=== PATIENT | male | born 1935 | race Caucasian/White ===

== ENCOUNTER 2018-10-09 15:29 | Inpatient (IN) ==
[2018-10-09] MEDS ORDERED: ACETAMINOPHEN 1,000 MG/100 ML VIAL IV STA (15:49)
[2018-10-09] MEDS ORDERED: SODIUM CHLORIDE 0.9% 1000ML 500 ML IV ONE ×2 (15:49→17:30)
[2018-10-09] MEDS ORDERED: ONDANSETRON INJ 2 MG/ML 2 ML VIAL IV STA (15:49)
[2018-10-09 16:22] LABS: Albumin Level 3.2 gm/dl (3.4-5.0); BUN Creatinine Ratio 16.1 (10-20); Calcium 8.6 mg/dl (8.5-10.1); Creatinine Clr Calc Pharmacy 28.9 ml/min; Est GFR (African American) 38.2; Est GFR (Non-African American) 32.9; Potassium 4.1 mmol/L (3.5-5.1)
--- NOTE | 2018-10-09 16:24 | Emergency Department Note ---
Entered by Luis Charles acting as a scribe for Luis Meza MD History of Present Illness General Chief complaint: Catheter Replacement Stated complaint: CATHETER LEAKING, CONSTIPATION-S/P BLADDER SURGERY Time Seen by Provider: 10/09/18 15:36 Source: patient History of Present Illness Provider complaint: Catheter problems Onset (ago): unknown Location: genitals Radiation: abdomen Relieved By: + none Associated symptoms: + cough and + other (Constipation, abd pain, chills); no nausea/vomiting The patient is an 83 year old male s/p bladder surgery who presents to the Emergency Room with complaints of catheter problems. The patient states that the catheter is currently leaking but the bag is filling up. He notes that he had same-day surgery for bladder cancer 2 days ago at [facility] ([place]) and left with the catheter. The patient adds that he is currently taking antibiotics for infection prevention since the surgery. The patient also notes that he has not moved is bowels for 4 days. He adds that he has been taking suppositories and used an enema with no relief. He adds that his abdomen feels bloated stating it "feels like a rock". The patient also reports that he has some abdominal pain that radiates across his abdomen. The patient also complains of chills and coughing. The patient denies vomiting Home Medications Home Medications Medication Instructions Recorded Confirmed Type amlodipine 5 mg PO HS 10/09/18 10/09/18 History aspirin [Aspirin Low Dose] 81 mg PO QA 10/09/18 10/09/18 History atenolol 25 mg PO HS 10/09/18 10/09/18 History atenolol 50 mg PO QAM 10/09/18 10/09/18 History calcium carbonate 500 mg PO DAILY 10/09/18 10/09/18 History cholecalciferol (vitamin D3) 1,000 unit PO DAILY 10/09/18 10/09/18 History [Vitamin D3] coenzyme Q10 50 mg PO DAILY 10/09/18 10/09/18 History finasteride 5 mg PO PM 10/09/18 10/09/18 History fluticasone furoate [Flonase 1 spray INTRANASAL DIRECTED PRN 10/09/18 0 10/09/18 History Sensimist] multivitamin 1 tab PO QAM 10/09/18 10/09/18 History nitroglycerin [Nitrostat] 0.3 mg SUBLINGUAL DIRECTED 10/09/18 10/09/18 History omega [id number]-fish oil [[place]-3] 1 cap PO PM 10/09/18 10/09/18 History omeprazole 20 mg PO DIRECTED PRN 10/09/18 10/09/18 History polyethylene glycol 3350 17 g PO DAILY PRN 10/09/18 10/09/18 History pravastatin 20 mg PO HS 10/09/18 10/09/18 History pyridoxine (vitamin B6) 100 mg PO QAM 10/09/18 10/09/18 History spironolactone 25 mg PO QAM 10/09/18 10/09/18 History vitamin X11-[id number] acid 1 tab PO QAM 10/09/18 10/09/18 History Allergies Allergy/AdvReac Type Severity Reaction Status Date / Time atorvastatin Allergy Unknown "TIGHTENS Verified 10/09/18 17:46 UP MY LIVER" simvastatin Allergy Unknown "TIGHTEN Verified 10/09/18 17:46 UP MY LIVER" tamsulosin Allergy Unknown UNKNOWN Verified 10/09/18 17:46 ciprofloxacin [From Cipro] AdvReac Severe abdominal/ Unverified 10/09/18 17:46 stomach pain lisinopril AdvReac Mild RASH Unverified 10/09/18 17:46 Past Med/Surg History Medical History Bladder cancer Social History Preferred Language: Taiwanese In Store Representative Required: No Beliefs That Will Affect Care: None Current Living Situation: Spouse Feels Safe at Home: Yes Safety Concerns: Feels Safe At This Time Smoking Status: Never smoker Hx Alcohol Use: No Hx Substance Use: No Review of Systems See HPI for pertinent positives & negatives. and A total of 10 systems reviewed and were otherwise negative Physical Exam Vital Signs Vital Signs - 24 hr 10/09/18 15:34 10/09/18 16:39 10/09/18 18:04 Temperature 37.0 C Temperature Source Oral Sepsis Recent Fever Within 48 Hours No Sepsis New/Unexplained Change in Mental Status No Sepsis Action Taken by Nursing No Action Required Pulse Rate 94 H 64 Pulse Rate [Apical] 67 Pulse Rate from SpO2 Sensor Respiratory Rate 20 20 12 Respiratory Effort / Characteristics Non-Labored Spontaneous Respiratory Depth Normal Blood Pressure 130/63 133/65 Blood Pressure [Left Arm] 132/61 Blood Pressure Mean 85 87 Blood Pressure Mean [Left Arm] 84 Blood Pressure Position Sitting Pulse Oximetry 92 93 97 Pulse Oximetry [Left Index Finger] Oxygen Delivery Method Room Air Room Air Room Air Oxygen Delivery Method [Left Index Finger] 10/09/18 18:30 10/09/18 19:01 10/09/18 19:32 Temperature Temperature Source Sepsis Recent Fever Within 48 Hours Sepsis New/Unexplained Change in Mental Status Sepsis Action Taken by Nursing Pulse Rate 69 65 64 Pulse Rate [Apical] Pulse Rate from SpO2 Sensor 69 64 65 Respiratory Rate 16 19 23 Respiratory Effort / Characteristics Respiratory Depth Blood Pressure 141/70 H 136/89 141/61 H Blood Pressure [Left Arm] Blood Pressure Mean 93 104 87 Blood Pressure Mean [Left Arm] Blood Pressure Position Pulse Oximetry 96 95 95 Pulse Oximetry [Left Index Finger] Oxygen Delivery Method Room Air Room Air Room Air Oxygen Delivery Method [Left Index Finger] 10/09/18 20:00 10/09/18 20:08 Temperature 36.8 C Temperature Source Oral Sepsis Recent Fever Within 48 Hours Sepsis New/Unexplained Change in Mental Status Sepsis Action Taken by Nursing Pulse Rate Pulse Rate [Apical] 62 Pulse Rate from SpO2 Sensor Respiratory Rate 18 Respiratory Effort / Characteristics Non-Labored Spontaneous Respiratory Depth Normal Blood Pressure Blood Pressure [Left Arm] 158/62 H Blood Pressure Mean Blood Pressure Mean [Left Arm] 94 Blood Pressure Position Pulse Oximetry 95 Pulse Oximetry [Left Index Finger] 95 Oxygen Delivery Method Room Air Oxygen Delivery Method [Left Index Finger] Room Air GENERAL: Patient is in no acute distress. HEENT: No acute trauma, normocephalic atraumatic, mucous membranes moist, no nasal congestion, no scleral icterus. NECK: No stridor, no adenopathy, no meningismus, trachea is midline. LUNGS: Clear to auscultation bilaterally, no wheeze, no rhonchi, breath sounds equal. HEART: Without murmurs gallops or rubs, regular rate and rhythm. ABDOMEN: Distension noted, soft abdomen, tympany with percussion, no obvious hernia, no focal tenderness. GROIN: Fairbanks catheter in place draining dark yellow urine, underwear are soaked from leakage. RECTAL: No stool in rectal vault. EXTREMITIES: No cyanosis or edema, full range of motion of all the joints without pain or difficulty, no signs for acute trauma. NEUROLOGIC: Oriented x 3, no acute motor or sensory deficits, no focal weakness. SKIN: No rash, no jaundice, no diaphoresis. Course 1542: The patient was evaluated in room C02B. A complete history and physical exam was performed. 1753: I reviewed the patient's case with Dr. [facility]. He states that there is no reason for any emergent procedure today. The patient can stay at our hospital. 1804: I reviewed the patient's case with Dr. Sandoval Hospitalist. He will evaluate the patient for further management. Administered Medications Acetaminophen (Tylenol) 650 mg PO Q4H PRN PRN Reason: Pain or Fever Stop: 11/08/18 20:07 Last Admin: 10/09/18 22:19 Dose: 650 mg Documented by: [id number] Amlodipine Besylate (Norvasc) 5 mg PO HS ALEK Stop: 11/08/18 20:59 Last Admin: 10/09/18 21:10 Dose: Not Given Documented by: [id number] Atenolol (Tenormin) 25 mg PO HS ALEK Stop: 11/08/18 20:59 Last Admin: 10/09/18 20:58 Dose: 25 mg Documented by: [id number] Bisacodyl (Dulcolax) 10 mg MO [id number] ALEK Stop: 11/08/18 21:35 Last Admin: 10/09/18 22:19 Dose: 10 mg Documented by: [id number] Finasteride (Proscar) 5 mg PO PM ALEK Stop: 11/08/18 20:59 Last Admin: 10/09/18 20:58 Dose: 5 mg Documented by: [id number] Fish Oil ([place]-3 (Purified Fish Oil)) 1 gm PO PM ALEK Stop: 11/08/18 20:59 Last Admin: 10/09/18 20:59 Dose: Not Given Documented by: [id number] Heparin Sodium (Porcine) (Heparin Sodium (Porcine)) 5,000 units SQ Q8 ALEK Stop: 11/08/18 21:59 Last Admin: 10/09/18 21:06 Dose: 5,000 units Documented by: [id number] Cosigned by: [id number] Sodium Chloride (Nss 1000ml) 1,000 mls @ 100 mls/hr IV .Q10H ALEK Stop: 11/08/18 20:14 Last Admin: 10/09/18 20:56 Dose: 100 mls/hr Documented by: [id number] Lactulose (Chronulac) 30 gm PO [id number] ALEK Stop: 11/08/18 21:34 Last Admin: 10/09/18 22:19 Dose: 30 gm Documented by: [id number] Pravastatin Sodium (Pravachol) 20 mg PO HS ALEK Stop: 11/08/18 20:59 Last Admin: 10/09/18 20:58 Dose: 20 mg Documented by: [id number] Discontinued Medications Sodium Chloride (Nss 1000ml) 500 mls @ 999 mls/hr IV .Q31M ONE Stop: 10/09/18 16:19 Last Infusion: 10/09/18 16:35 Dose: 0 mls/hr Documented by: [id number] Admin: 10/09/18 16:04 Dose: 999 mls/hr Documented by: [id number] Acetaminophen (Ofirmev) 1,000 mg in 100 mls @ 400 mls/hr IV NOW STA Stop: 10/09/18 16:03 Last Infusion: 10/09/18 16:19 Dose: 0 mls/hr Documented by: [id number] Admin: 10/09/18 16:04 Dose: 400 mls/hr Documented by: [id number] Cefepime HCl (Maxipime) 2,000 mg in 20 mls @ 5 mls/min IV NOW STA; Protocol Stop: 10/09/18 17:17 Last Admin: 10/09/18 18:26 Dose: 5 mls/min Documented by: [id number] Sodium Chloride (Nss 1000ml) 500 mls @ 999 mls/hr IV .Q31M ONE Stop: 10/09/18 18:00 Last Infusion: 10/09/18 18:39 Dose: 0 mls/hr Documented by: [id number] Admin: 10/09/18 18:08 Dose: 999 mls/hr Documented by: [id number] Ondansetron HCl (Zofran) 4 mg IV NOW STA Stop: 10/09/18 15:50 Last Admin: 10/09/18 16:04 Dose: 4 mg Documented by: [id number] Medical Decision Making Differential Diagnosis Differential Diagnosis: urinary obstruction, mal position Fairbanks catheter, UTI, constipation, bowel obstruction, renal failure, dehydration, anemia Medical Records Attestation: I reviewed the patient's medical records. Home Medications Current Medication List: was personally reviewed by me Laboratory Data Attestation: I reviewed the patient's lab results. Result diagrams: 10/09/18 15:59 10/09/18 15:59 Lab Results 10/09/18 10/09/18 10/09/18 Range/Units 15:59 15:59 16:02 WBC 24.62 H (4.8-10.8) K/uL RBC 4.44 L (4.7-6.1) M/uL Hgb 14.0 (14.0-18.0) g/dL Hct 39.8 L (42-52) % MCV 89.6 (80-100) fL MCH 31.5 (25-34) pg MCHC 35.2 (32-36) g/dL RDW Std Deviation 47.6 H (36.4-46.3) fL RDW Coeff of Kriss 14.5 (11.5-14.5) % Plt Count 79 L (130-400) K/uL MPV 11.7 H (7.4-10.4) fL Neutrophils % (Manual) 60.8 % Lymphocytes % (Manual) 9.6 % Monocytes % (Manual) 29.6 % Neutrophils # (Manual) 14.97 H (1.4-6.5) K/uL Total Absolute Neuts 14.97 H (1.4-6.5) K/uL Lymphocytes # (Manual) 2.36 (1.2-3.4) K/uL Total Abs Lymphocytes 2.36 (1.2-3.4) K/uL Monocytes # (Manual) 7.29 H (0.11-0.59) K/uL Platelet Estimate Decreased L (Normal) RBC Morphology Unremarkable PT 12.4 H (9.0-12.0) Seconds INR 1.2 H (0.9-1.1) Sodium 135 L (136-145) mmol/L Potassium 4.1 (3.5-5.1) mmol/L Chloride 101 (98-107) mmol/L Carbon Dioxide 25 (21-32) mmol/L Anion Gap 8.0 (3-11) BUN 30 H (7-18) mg/dl Creatinine 1.84 H (0.6-1.4) mg/dl Est Cr Clr Drug Dosing 28.9 ml/min Est GFR ( Amer) 38.2 Est GFR (Non-Af Amer) 32.9 BUN/Creatinine Ratio 16.1 (10-20) Glucose 129 H (70-99) mg/dl Lactate (0.4-2.0) mmol/L Calcium 8.6 (8.5-10.1) mg/dl Total Bilirubin 2.4 H (0.2-1) mg/dl AST 11 L (15-37) U/L ALT 17 (12-78) U/L Alkaline Phosphatase 52 (45-117) U/L Total Protein 6.1 L (6.4-8.2) gm/dl Albumin 3.2 L (3.4-5.0) gm/dl Globulin 2.9 (2.5-4.0) gm/dl Albumin/Globulin Ratio 1.1 (0.9-2) Urine Color Urine Appearance (Clear) Urine pH (4.5-7.5) Ur Specific [place] (1.000-1.030) Urine Protein (Negative) Urine Glucose (UA) (Negative) Urine Ketones (Negative) Urine Blood (Negative) Urine Nitrite (Negative) Urine Bilirubin (Negative) Urine Urobilinogen (Negative) Ur Leukocyte Esterase (Negative) Urine WBC (Auto) (0-5) /hpf Urine RBC (Auto) (0-4) /hpf U Hyaline Cast (Auto) (0-5) /lpf U Epithel Cells (Auto) (0-5) /lpf Urine Bacteria (Auto) (Negative) Ur Renal Epithelial Cell Amorphous Sediment (None Prsent) Urine Yeast 10/09/18 10/09/18 Range/Units 17:44 17:48 WBC (4.8-10.8) K/uL RBC (4.7-6.1) M/uL Hgb (14.0-18.0) g/dL Hct (42-52) % MCV (80-100) fL MCH (25-34) pg MCHC (32-36) g/dL RDW Std Deviation (36.4-46.3) fL RDW Coeff of Kriss (11.5-14.5) % Plt Count (130-400) K/uL MPV (7.4-10.4) fL Neutrophils % (Manual) % Lymphocytes % (Manual) % Monocytes % (Manual) % Neutrophils # (Manual) (1.4-6.5) K/uL Total Absolute Neuts (1.4-6.5) K/uL Lymphocytes # (Manual) (1.2-3.4) K/uL Total Abs Lymphocytes (1.2-3.4) K/uL Monocytes # (Manual) (0.11-0.59) K/uL Platelet Estimate (Normal) RBC Morphology PT (9.0-12.0) Seconds INR (0.9-1.1) Sodium (136-145) mmol/L Potassium (3.5-5.1) mmol/L Chloride (98-107) mmol/L Carbon Dioxide (21-32) mmol/L Anion Gap (3-11) BUN (7-18) mg/dl Creatinine (0.6-1.4) mg/dl Est Cr Clr Drug Dosing ml/min Est GFR ( Amer) Est GFR (Non-Af Amer) BUN/Creatinine Ratio (10-20) Glucose (70-99) mg/dl Lactate 1.0 (0.4-2.0) mmol/L Calcium (8.5-10.1) mg/dl Total Bilirubin (0.2-1) mg/dl AST (15-37) U/L ALT (12-78) U/L Alkaline Phosphatase (45-117) U/L Total Protein (6.4-8.2) gm/dl Albumin (3.4-5.0) gm/dl Globulin (2.5-4.0) gm/dl Albumin/Globulin Ratio (0.9-2) Urine Color Dark Yellow Urine Appearance Turbid A (Clear) Urine pH 5.0 (4.5-7.5) Ur Specific [place] 1.029 (1.000-1.030) Urine Protein 3+ H (Negative) Urine Glucose (UA) Negative (Negative) Urine Ketones Trace H (Negative) Urine Blood 3+ H (Negative) Urine Nitrite Negative (Negative) Urine Bilirubin Negative (Negative) Urine Urobilinogen Negative (Negative) Ur Leukocyte Esterase 1+ H (Negative) Urine WBC (Auto) >30 H (0-5) /hpf Urine RBC (Auto) >30 H (0-4) /hpf U Hyaline Cast (Auto) 0 (0-5) /lpf U Epithel Cells (Auto) >30 H (0-5) /lpf Urine Bacteria (Auto) Negative (Negative) Ur Renal Epithelial Cell Not Reportable Amorphous Sediment Present A (None Prsent) Urine Yeast Not Reportable Imaging Data Radiologist's Impression: Radiology results as stated below per my review and the radiologist's interpretation: CT SCAN OF THE ABDOMEN AND PELVIS WITHOUT IV CONTRAST CLINICAL HISTORY: Generalized abdominal pain. COMPARISON STUDY: Abdominal radiographs dated 12/19/2009. PET/CT dated 02/13/2009. TECHNIQUE: CT scan of the abdomen and pelvis is performed from the lung bases to the proximal femora. Images are reviewed in the axial, sagittal, and coronal planes. IV contrast was not administered for this examination as per the referring clinician. Note that the examination was performed in significantly suboptimal fashion without oral and IV contrast. The examination is also mildly degraded by motion artifact. A dose lowering technique was utilized adhering to the principles of ALARA. CT DOSE: 432.71 mGy.cm FINDINGS: Lung bases: The patient is status post midline sternotomy. The heart is enlarged and without pericardial effusion. The coronary arteries are densely calcified. There is a trace right pleural effusion and bibasilar atelectasis. No airspace consolidation is seen typical for pneumonia. Liver: The unenhanced liver is cirrhotic in morphology and heterogeneous in attenuation. There is hypertrophy of the left lobe and nodularity of the hepatic surface contour. There is no intrahepatic biliary ductal dilatation. There are subtle low attenuation hepatic mass lesions. The largest lesion is in the right hepatic lobe seen on image #106 and measures approximately 6.5 x 5.5 cm. Infiltrative 5.5 cm lesion extending towards the hilum is seen on image #80. A lesion in the right lobe below the diaphragm on image #60 measures a proximally 5 cm. A lesion in the left lobe on image #132 distorts the hepatic capsule and measures up to 4.3 cm. Additional smaller lesions are suspected. Additionally, there are numerous hepatic cysts which measure up to 3 cm. Gallbladder: Unremarkable. Spleen: Normal in size and attenuation. Pancreas: The unenhanced pancreas is atrophic and grossly unremarkable. Adrenal glands: Unremarkable. Kidneys: The unenhanced kidneys demonstrate cortical atrophy. There is moderate right hydroureteronephrosis, with significant right-sided perinephric and periureteric stranding/fluid. Hyperdense material fills the right ureter and may represent blood clots. No definite renal calculi are identified. There are no renal calculi identified. Right renal cysts measure up to 4 cm. A 1.6 cm exophytic lesion arising from the upper pole of the left kidney does not meet CT criteria for a simple cyst. This is seen on image #144. Abdominal vasculature: The there is advanced atherosclerotic calcification of the abdominal aorta. An aortobiiliac stent graft is in place. No significant aneurysm sac is identified. 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 Bowel: There is mild to moderate colonic diverticulosis without CT evidence of acute diverticulitis. No bowel obstruction is identified. Fecal retention is noted in the right colon. The appendix is well-visualized and normal. Peritoneum: There is fluid tracking in the right paracolic gutter. No intraperitoneal free air is seen. Lymphadenopathy: None. Pelvic viscera: The prostate gland is mildly enlarged and heterogeneous, measuring 5.1 cm in transverse diameter. Although decompressed around a Fairbanks catheter, the bladder wall appears thickened and there is pericystic inflammation. Gas is noted within the bladder lumen. Skeletal structures: The skeletal structures are osteopenic. There is moderate to advanced lumbosacral spondylosis and mild scoliosis. No lytic or blastic lesions are seen. IMPRESSION: 1. Significantly compromised examination without oral and IV contrast. The examination is also mildly degraded by motion artifact. 2. The liver is cirrhotic in morphology and heterogeneous in attenuation. 3. There are large hepatic mass lesions as detailed above. Differential considerations include metastatic disease, multifocal hepatocellular carcinoma, or less likely cholangiocarcinoma. Numerous hepatic mass lesions were also seen on a [address] from an outside institution. Correlation with the patient's oncological history would also be useful. 4. The bladder is decompressed around a Fairbanks catheter. The bladder wall appears circumferentially thickened and there is extensive pericystic inflammation. The appearance suggests cystitis. Correlation with urinalysis will be required. 5. There is moderate to severe right hydroureteronephrosis, with associated perinephric stranding and fluid. Hyperdense material fills the right ureter and this may represent blood clots. Ascending urinary tract infection/pyelonephritis is not excluded. Again, correlation with clinical findings and urinalysis will be essential. 6. Cardiomegaly and trace right pleural effusion. 7. Mild to moderate colonic diverticulosis without CT evidence of acute diverticulitis. 8. The patient is status post aortobiiliac stent graft repair of an abdominal aortic aneurysm. No residual aneurysm sac is seen. 9. 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 10. There is a 1.6 cm exophytic lesion arising from the upper pole of the left kidney that does not meet CT criteria for a simple cyst. Differential considerations include a complex/hemorrhagic cyst versus a small renal neoplasm. This was not seen on the 2008 PET/CT. 11. Additional findings as above. Electronically signed by: Luis Tom M.D. 10/09/2018 5:14 PM Blood Pressure Blood Pressure Findings: Elevated blood pressure Blood Pressure Disposition: further management by hospitalist LEXUS Narrative There is a significant leukocytosis at 24,000, this certainly could be consistent with infection. No anemia. Platelet count was somewhat low at 79. Renal panel testing shows a bump of the creatinine at 1.8. No concerning electrolyte abnormality that requires emergent correction. Lactic acid level was not elevated making severe sepsis less likely. There was a slight elevation to the bilirubin, the AST and ALT were not elevated. Urinalysis showed possible infection. Urine culture is pending. Blood cultures are pending. Abdominal and pelvis CT shows right hydronephrosis with some potential clot in the right ureter. Pyelonephritis was suspected. Cancer on the liver was suspected. There was inflammation to the bladder noted. No bowel obstruction. The patient had the old Fairbanks catheter removed and a new Fairbanks placed, he felt improvement with the new catheter and the urine drained freely. He received IV cefepime as antibiotic coverage, IV Zofran for nausea, IV Tylenol for pain. He received IV saline for hydration. I did speak with on-call urology. No emergent urologic procedure necessary tonight. The patient is being hospitalized for IV antibiotic's and IV fluids. He needs close monitoring. I spoke to the patient about his findings, he understands the need for hospitalization. I spoke with case management, the on-call hospitalist was consulted. In short, the patient appears to have an acute pyelonephritis status post his bladder procedure. Hospitalization is warranted. Impression & Plan Acute pyelonephritis, Leukocytosis, Hydronephrosis, S/P cystoscopy Discharge Plan Visit Data *Final* Discharge Date/Time: 10/09/18 19:56 Chief Complaint: Catheter Replacement Stated Complaint: CATHETER LEAKING, CONSTIPATION-S/P BLADDER SURGERY ED Provider: Luis Meza Discharge Problem: Acute pyelonephritis, Leukocytosis, Hydronephrosis, S/P cystoscopy Patient Disposition: Admitted As Inpatient Discharge Instructions Interventions: ED Discharge Assessment Last Done: 10/09/18 19:56 The scribe's documentation has been prepared under my direction and personally reviewed by me in its entirety. I confirm that the note above accurately reflects all work, treatment, procedures, and medical decision making performed by me.
[2018-10-09 16:25] LABS: Albumin Globulin Ratio 1.1 (0.9-2); Bilirubin,Total 2.4 mg/dl (0.2-1); Globulin 2.9 gm/dl (2.5-4.0); Total Protein 6.1 gm/dl (6.4-8.2)
[2018-10-09 16:58] LABS: Hematocrit (blood only) 39.8 % (42-52); Mean Corpuscular Hgb Conc 35.2 g/dL (32-36); Mean Corpuscular Volume 89.6 fL (80-100); Mean Platelet Volume 11.7 fL (7.4-10.4); Platelet Count 79 K/uL (130-400); RDW Coefficient of Variation 14.5 % (11.5-14.5); RDW Standard Deviation 47.6 fL (36.4-46.3); Red Blood Count 4.44 M/uL (4.7-6.1); White Blood Count 24.62 K/uL (4.8-10.8)
[2018-10-09 16:59] LABS: ALC (manual) 2.36 K/uL (1.2-3.4); Lymphocytes # (manual) 2.36 K/uL (1.2-3.4); Lymphocytes % (manual) 9.6 %; Monocytes # (manual) 7.29 K/uL (0.11-0.59); Monocytes % (manual) 29.6 %; Neutrophils % (manual) 60.8 %; Platelet Estimate Decreased (Normal); RBC Morphology Unremarkable
[2018-10-09] MEDS ORDERED: CEFEPIME 2,000 MG/20 ML VIAL IV STA (17:14)
--- NOTE | 2018-10-09 17:17 | CT Scan Report ---
CT SCAN OF THE ABDOMEN AND PELVIS WITHOUT IV CONTRAST CLINICAL HISTORY: Generalized abdominal pain. COMPARISON STUDY: Abdominal radiographs dated 12/19/2009. PET/CT dated 02/13/2009. TECHNIQUE: CT scan of the abdomen and pelvis is performed from the lung bases to the proximal femora. Images are reviewed in the axial, sagittal, and coronal planes. IV contrast was not administered for this examination as per the referring clinician. Note that the examination was performed in signific antly suboptimal fashion without oral and IV contrast. The examination is also mildly degraded by mot ion artifact. A dose lowering technique was utilized adhering to the principles of ALARA. CT DOSE: 432.71 mGy.cm FINDINGS: Lung bases: The patient is status post midline sternotomy. The heart is enlarged and without pericard ial effusion. The coronary arteries are densely calcified. There is a trace right pleural effusion an d bibasilar atelectasis. No airspace consolidation is seen typical for pneumonia. Liver: The unenhanced liver is cirrhotic in morphology and heterogeneous in attenuation. There is hyp ertrophy of the left lobe and nodularity of the hepatic surface contour. There is no intrahepatic uche iary ductal dilatation. There are subtle low attenuation hepatic mass lesions. The largest lesion is in the right hepatic lobe seen on image #106 and measures approximately 6.5 x 5.5 cm. Infiltrative 5. 5 cm lesion extending towards the hilum is seen on image #80. A lesion in the right lobe below the di aphragm on image #60 measures a proximally 5 cm. A lesion in the left lobe on image #132 distorts the hepatic capsule and measures up to 4.3 cm. Additional smaller lesions are suspected. Additionally, t here are numerous hepatic cysts which measure up to 3 cm. Gallbladder: Unremarkable. Spleen: Normal in size and attenuation. Pancreas: The unenhanced pancreas is atrophic and grossly unremarkable. Adrenal glands: Unremarkable. Kidneys: The unenhanced kidneys demonstrate cortical atrophy. There is moderate right hydroureteronep hrosis, with significant right-sided perinephric and periureteric stranding/fluid. Hyperdense materia l fills the right ureter and may represent blood clots. No definite renal calculi are identified. The re are no renal calculi identified. Right renal cysts measure up to 4 cm. A 1.6 cm exophytic lesion a rising from the upper pole of the left kidney does not meet CT criteria for a simple cyst. This is se en on image #144. Abdominal vasculature: The there is advanced atherosclerotic calcification of the abdominal aorta. An aortobiiliac stent graft is in place. No significant aneurysm sac is identified. 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 Bowel: There is mild to moderate colonic diverticulosis without CT evidence of acute diverticulitis. No bowel obstruction is identified. Fecal retention is noted in the right colon. The appendix is wel l-visualized and normal. Peritoneum: There is fluid tracking in the right paracolic gutter. No intraperitoneal free air is see n. Lymphadenopathy: None. Pelvic viscera: The prostate gland is mildly enlarged and heterogeneous, measuring 5.1 cm in transver se diameter. Although decompressed around a [place] catheter, the bladder wall appears thickened and th ere is pericystic inflammation. Gas is noted within the bladder lumen. Skeletal structures: The skeletal structures are osteopenic. There is moderate to advanced lumbosacra l spondylosis and mild scoliosis. No lytic or blastic lesions are seen. IMPRESSION: 1. Significantly compromised examination without oral and IV contrast. The examination is also mildly degraded by motion artifact. 2. The liver is cirrhotic in morphology and heterogeneous in attenuation. 3. There are large hepatic mass lesions as detailed above. Differential considerations include metast atic disease, multifocal hepatocellular carcinoma, or less likely cholangiocarcinoma. Numerous hepati c mass lesions were also seen on a [address] from an outside institution. Correlation with the yakov ent's oncological history would also be useful. 4. The bladder is decompressed around a [place] catheter. The bladder wall appears circumferentially th ickened and there is extensive pericystic inflammation. The appearance suggests cystitis. Correlation with urinalysis will be required. 5. There is moderate to severe right hydroureteronephrosis, with associated perinephric stranding and fluid. Hyperdense material fills the right ureter and this may represent blood clots. Ascending urin maegan tract infection/pyelonephritis is not excluded. Again, correlation with clinical findings and uri nalysis will be essential. 6. Cardiomegaly and trace right pleural effusion. 7. Mild to moderate colonic diverticulosis without CT evidence of acute diverticulitis. 8. The patient is status post aortobiiliac stent graft repair of an abdominal aortic aneurysm. No res idual aneurysm sac is seen. 9. 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 10. There is a 1.6 cm exophytic lesion arising from the upper pole of the left kidney that does not m eet CT criteria for a simple cyst. Differential considerations include a complex/hemorrhagic cyst inocencio khushi a small renal neoplasm. This was not seen on the 2009 PET/CT. 11. Additional findings as above. Electronically signed by: Luis Tom M.D. 10/09/2018 5:14 PM
[2018-10-09 18:02] LABS: Appearance Urine Turbid (Clear); Bacteria Urine Automated Negative (Negative); Bilirubin Urine Negative (Negative); Blood Urine 3+ (Negative); Color Urine Dark Yellow; Epithelial Cell Urine Auto >30 /lpf (0-5); Glucose Urine UA Negative (Negative); Ketones Urine Trace (Negative); Leukocyte Esterase Urine 1+ (Negative); Nitrite Urine Negative (Negative); Protein Urine 3+ (Negative); Specific Gravity Urine 1.029 (1.000-1.030); Urobilinogen Urine Negative (Negative); WBC Urine Automated >30 /hpf (0-5)
[2018-10-09 18:18] LABS: Cast Urine Automated 0 /lpf (0-5); RBC Urine Automated >30 /hpf (0-4)
[2018-10-09 18:21] LABS: Amorphous Sediment Urine Present (None Prsent)
--- NOTE | 2018-10-09 19:55 | History & Physical Report ---
Date of Service October 09, 2018 Assessment & Plan (1) Bladder cancer: (2) Leukocytosis: (3) Acute pyelonephritis: (4) Hydronephrosis: (5) S/P cystoscopy: (6) HLD (hyperlipidemia): (7) HTN (hypertension): Cefepime, Consult Dr Dave, Continue OP meds where appropriate, IVFs, Bowel Care, Monitor Daily Labs DVT PFx ROS-No Headache, No Visual Changes, No Nausea, No Vomiting, No Fever, Pos Chills, No Neck Pain or Stiffness, No Chest Pain, No Palpitations, No SOB, No COVARRUBIAS, No Cough, No Sputum, No Wheezing, + Abdominal Pain, No Diarrhea, No Hematemesis, No Hemoptysis, No Unexpected Weight Loss, No Flank pain, No Melena, No Hematochezia, No Frequency, No Urgency, No Burning, No Hematuria, No Rashes, No Diaphoresis. Appetite is decreased, +constipation Physical Exam Gen-AAO x 3, NAD, Afebrile, Pleasant Head-NCAT, EOMI, PERRLA, Anicteric Sclera, No Posterior Pharyngeal Erythema Neck-Supple, No JVD, No Thyromegaly, No Masses, No LAD, No Bruits Lungs-Clear to Auscultation Bilaterally, No Rales, No Rhonchi, No Wheezing, No Crepitus Chest-No S4, +S1, +S2, No S3, No Murmurs, No Rubs, No Gallops, No Ectopy Abdomen-Soft, Bowel Sounds Present, Sore, Non Distended, No Hepatomegaly, No Splenomegaly, No Palpable Masses, No Rebound, No Rigidity, No Guarding Musculoskeletal-Full Range of Motion Bilaterally, No CVAT, [place] Extremities-No Cyanosis, No Clubbing, No Edema Nuero-Cranial Nerves II-XII grossly intact, Motor WNL, DTRs WNL, Strength WNL, Non Focal Psych-Normal Mood History of Present Illness 83 year old male s/p bladder surgery who presents to the Emergency Room with complaints of catheter problems. The patient states that the catheter is currently leaking but the bag is filling up. He notes that he had same-day surgery for bladder cancer 2 days ago at [facility] ([place]) and left with the catheter. He was prescribed abx on DC. c/o constipation last 4 days. He feels bloated and distended. The patient also reports that he has some abdominal pain that radiates across his abdomen. The patient also complains of chills and coughing. The patient denies vomiting. He was found to have a Leukocytosis and Hydronephrosis, Dr Jolie MAR was contacted by ER Dr. WEBB-No Headache, No Visual Changes, No Fever, No Chills, No Neck Pain or Stiffness, No Chest Pain, No Palpitations, No SOB, No COVARRUBIAS, No Cough, No Sputum, No Wheezing, No Abdominal Pain, No Diarrhea, No Hematemesis, No Hemoptysis, No Unexpected Weight Loss, No Flank pain, No Melena, No Hematochezia, No Frequency, No Urgency, No Burning, No Hematuria, No Rashes, No Diaphoresis. Appetite is Normal Physical Exam Gen-AAO x 3, NAD, Afebrile Head-NCAT, EOMI, PERRLA, Anicteric Sclera, No Posterior Pharyngeal Erythema Neck-Supple, No JVD, No Thyromegaly, No Masses, No LAD, No Bruits Lungs-Clear to Auscultation Bilaterally, No Rales, No Rhonchi, No Wheezing, No Crepitus Chest-No S4, +S1, +S2, No S3, No Murmurs, No Rubs, No Gallops, No Ectopy Abdomen-Soft, Bowel Sounds Present, Non Tender, Non Distended, No Hepatomegaly, No Splenomegaly, No Palpable Masses, No Rebound, No Rigidity, No Guarding Musculoskeletal-Full Range of Motion Bilaterally, No CVAT Extremities-No Cyanosis, No Clubbing, No Edema Nuero-Cranial Nerves II-XII grossly intact, Motor WNL, DTRs WNL, Strength WNL, No Focal Psych-Normal Mood PMH CAD, AMI, Bladder Ca, HTN, HLD, Seasonal Allergies, BPH, Basal Cell CA, Lung CA, AAA PSH Bladder Surgery (Scraping) 3 Bladder procedures, CABG x 2 (3 Vessel Disease) , Basal Cell Removal x 2, A-Iliac Bypass, T/A FH M of Breast CA, F of CVA, 2 healthy sons, 3 healthy Dtrs, 1 sister healthy SH 2 Packs/Day x 48 years, quit 1997, , Occas Etoh, Retired [employer] Meds reviewed and Reconciled Labs Reviewed Primary Care Provider: Javon Scales, Allergies Allergy/AdvReac Type Severity Reaction Status Date / Time atorvastatin Allergy Unknown "TIGHTENS Verified 10/09/18 17:46 UP MY LIVER" simvastatin Allergy Unknown "TIGHTEN Verified 10/09/18 17:46 UP MY LIVER" tamsulosin Allergy Unknown UNKNOWN Verified 10/09/18 17:46 ciprofloxacin [From Cipro] AdvReac Severe abdominal/ Unverified 10/09/18 17:46 stomach pain lisinopril AdvReac Mild RASH Unverified 10/09/18 17:46 Home Medications Home Medications Medication Instructions Recorded Confirmed Type amlodipine 5 mg PO HS 10/09/18 10/09/18 History aspirin [Aspirin Low Dose] 81 mg PO QAM 10/09/18 10/09/18 History atenolol 25 mg PO HS 10/09/18 10/09/18 History atenolol 50 mg PO QAM 10/09/18 10/09/18 History calcium carbonate 500 mg PO DAILY 10/09/18 10/09/18 History cholecalciferol (vitamin D3) 1,000 unit PO DAILY 10/09/18 10/09/18 History [Vitamin D3] coenzyme Q10 50 mg PO DAILY 10/09/18 10/09/18 History finasteride 5 mg PO PM 10/09/18 10/09/18 History fluticasone furoate [Flonase 1 spray INTRANASAL DIRECTED PRN 10/09/1810/23 History Sensimist] multivitamin 1 tab PO QAM 10/09/18 10/09/18 History nitroglycerin [Nitrostat] 0.3 mg SUBLINGUAL DIRECTED 10/09/18 10/09/18 History omega [id number]-[id number]-fish oil [Amawalk-3] 1 cap PO PM 10/09/18 10/09/18 History omeprazole 20 mg PO DIRECTED PRN 10/09/18 10/09/18 History polyethylene glycol 3350 17 g PO DAILY PRN 10/09/18 10/09/18 History pravastatin 20 mg PO HS 10/09/18 10/09/18 History pyridoxine (vitamin B6) 100 mg PO QAM 10/09/18 10/09/18 History spironolactone 25 mg PO QAM 10/09/18 10/09/18 History vitamin D27-lwflh acid 1 tab PO QAM 10/09/18 10/09/18 History Past Med/Surg History Medical History Bladder cancer Social History Preferred Language: [place]ib[place]ian Communication Ability: Effective 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
[2018-10-09] MEDS ORDERED: PANTOprazole 40 MG TAB PO PRN (20:08)
[2018-10-09] MEDS ORDERED: NITROGLYCERIN 0.3 MG/1 TAB 100 TAB BTL SL PRN (20:08)
[2018-10-09] MEDS ORDERED: ACETAMINOPHEN 325 MG TAB PO PRN (20:08)
[2018-10-09] MEDS ORDERED: POLYETHYLENE (MIRALAX) 17 GM PACK PO PRN ×2 (20:08)
[2018-10-09] MEDS ORDERED: FLUTICASONE PROPIONATE NA SPR 16 GM BTL NAE PRN (20:08)
[2018-10-09 20:40] LABS: INR 1.2 (0.9-1.1); Prothrombin Time 12.4 Seconds (9.0-12.0)
[2018-10-09] MEDS: SODIUM CHLORIDE 0.9% 1000ML 1,000 ML IV SCH (20:56)
[2018-10-09] MEDS: FINASTERIDE 5 MG TAB PO SCH (20:58)
[2018-10-09] MEDS: AMLODIPINE BESYLATE 5 MG TAB PO SCH ×2 (20:58→21:10)
[2018-10-09] MEDS: ATENOLOL 25 MG TABLET PO SCH (20:58)
[2018-10-09] MEDS: PRAVASTATIN SOD 20 MG TAB PO SCH (20:58)
[2018-10-09] MEDS: OMEGA-3 (PURIFIED FISH OIL) 1 GM CAP PO SCH (20:59)
[2018-10-09] MEDS: HEPARIN SOD 5,000 UNIT/0.5 ML VIAL SQ SCH (21:06)
[2018-10-09] MEDS: LACTULOSE SYRUP 30 GM/45 ML UDP PO SCH (22:19)
[2018-10-09] MEDS: BISACODYL 10 MG SUPP PR SCH (22:19)
[2018-10-10] MEDS: CEFEPIME 1,000 MG in SYRINGE 0 ML IV SCH (05:26)
[2018-10-10] MEDS: HEPARIN SOD 5,000 UNIT/0.5 ML VIAL SQ SCH ×3 (05:26→19:56)
[2018-10-10] MEDS: SODIUM CHLORIDE 0.9% 1000ML 1,000 ML IV SCH ×2 (05:26→15:57)
[2018-10-10 06:35] LABS: Albumin Level 2.5 gm/dl (3.4-5.0); BUN Creatinine Ratio 15.5 (10-20); Calcium 7.7 mg/dl (8.5-10.1); Creatinine Clr Calc Pharmacy 29.7 ml/min; Est GFR (African American) 39.5
[2018-10-10 06:48] LABS: Bilirubin,Total 1.7 mg/dl (0.2-1); Globulin 2.5 gm/dl (2.5-4.0)
[2018-10-10] MEDS: BISACODYL 10 MG SUPP PR SCH (07:18)
[2018-10-10] MEDS: LACTULOSE SYRUP 30 GM/45 ML UDP PO SCH ×2 (07:18→08:19)
[2018-10-10] MEDS: ASPIRIN 81 MG ECTAB PO SCH (08:18)
[2018-10-10] MEDS: SPIRONOLACTONE 25 MG TAB PO SCH (08:20)
[2018-10-10] MEDS: ATENOLOL 50 MG TABLET PO SCH (08:20)
[2018-10-10] MEDS ORDERED: BISACODYL 10 MG SUPP PR SCH (09:00)
[2018-10-10] MEDS ORDERED: COENZYME Q10 50 MG PO SCH (09:00)
[2018-10-10] MEDS ORDERED: LACTULOSE SYRUP 30 GM/45 ML UDP PO SCH (09:00)
[2018-10-10 09:23] LABS: Basophils # (auto) 0.01 K/uL (0-0.2); Basophils % (auto) 0.1 %; Echinocytes 1+; Hematocrit (blood only) 34.1 % (42-52); Hemoglobin 11.8 g/dL (14.0-18.0); Immature Granulocytes # (auto) 0.11 K/uL (0.00-0.02); Immature Granulocytes % (auto) 0.6 %; Lymphocytes # (auto) 1.42 K/uL (1.2-3.4); Lymphocytes % (auto) 7.4 %; Mean Corpuscular Hgb Conc 34.6 g/dL (32-36); Mean Corpuscular Volume 90.7 fL (80-100); Mean Platelet Volume 12.9 fL (7.4-10.4); Monocytes # (auto) 6.67 K/uL (0.11-0.59); Monocytes % (auto) 34.7 %; Neutrophils % (auto) 57.2 %; Platelet Count 75 K/uL (130-400); RDW Coefficient of Variation 14.6 % (11.5-14.5); RDW Standard Deviation 48.2 fL (36.4-46.3); Red Blood Count 3.76 M/uL (4.7-6.1); White Blood Count 19.21 K/uL (4.8-10.8)
[2018-10-10] MEDS: CALCIUM CARBONATE 1250MG TAB PO SCH (09:30)
[2018-10-10] MEDS: FOLIC ACID 400 MCG TAB PO SCH (09:30)
[2018-10-10] MEDS: PYRIDOXINE HCL 50 MG TAB PO SCH (09:30)
[2018-10-10] MEDS: MULTIVITAMIN TAB PO SCH (09:30)
[2018-10-10] MEDS: CHOLECALCIFEROL 1,000 UNITS TAB PO SCH (09:30)
[2018-10-10] MEDS: CYANOCOBALAMIN 500 MCG TABLET (VITAMIN B-12) PO SCH (09:30)
--- NOTE | 2018-10-10 10:28 | Hospitalist Progress Note ---
Date of Service October 10, 2018 Assessment & Plan (1) Bladder cancer: (2) Leukocytosis: (3) Acute pyelonephritis: (4) Hydronephrosis: (5) S/P cystoscopy: (6) HLD (hyperlipidemia): (7) HTN (hypertension): Cefepime, Consult Dr Dave, Continue OP meds where appropriate, IVFs, Bowel Care, Monitor Daily Labs DVT PFx ROS-No Headache, No Visual Changes, No Nausea, No Vomiting, No Fever, Pos Chills, No Neck Pain or Stiffness, No Chest Pain, No Palpitations, No SOB, No COVARRUBIAS, No Cough, No Sputum, No Wheezing, + Abdominal Pain, No Diarrhea, No Hematemesis, No Hemoptysis, No Unexpected Weight Loss, No Flank pain, No Melena, No Hematochezia, No Frequency, No Urgency, No Burning, No Hematuria, No Rashes, No Diaphoresis. Appetite is decreased, +constipation, Passed lots of gas last 24 hrs, feeling better Physical Exam Gen-AAO x 3, NAD, Afebrile, [place]-NCAT, EOMI, PERRLA, Anicteric Sclera, No Posterior Pharyngeal Erythema Neck-Supple, No JVD, No Thyromegaly, No Masses, No LAD, No Bruits Lungs-Clear to Auscultation Bilaterally, No Rales, No Rhonchi, No Wheezing, No Crepitus Chest-No S4, +S1, +S2, No S3, No Murmurs, No Rubs, No Gallops, No Ectopy Abdomen-Soft, Bowel Sounds Present, NT, Less Distended, No Hepatomegaly, No Splenomegaly, No Palpable Masses, No Rebound, No Rigidity, No Guarding Musculoskeletal-Full Range of Motion Bilaterally, No CVAT, [place] Extremities-No Cyanosis, No Clubbing, No Edema Nuero-Cranial Nerves II-XII grossly intact, Motor WNL, DTRs WNL, Strength WNL, Non Focal Psych-Normal Mood Results & Data Vital Signs (Past 12 Hours) Vital Signs Temp Pulse Resp BP BP Pulse Ox 10/10/18 07:06 37.2 C 68 20 135/60 95 10/10/18 05:24 36.5 C 65 12 116/64 96 10/09/18 23:09 36.8 C 67 18 146/65 H 95 Current Diagnoses Malignant neoplasm of bladder, unspecified (10/09/18) Elevated white blood cell count, unspecified (10/09/18) Hyperlipidemia, unspecified (10/09/18) Essential (primary) hypertension (10/09/18) Acute pyelonephritis (10/09/18) Unspecified hydronephrosis (10/09/18) Other specified postprocedural states (10/09/18) Allergies atorvastatin Allergy (Unknown, Verified 10/09/18 17:46) "TIGHTENS UP MY LIVER" simvastatin Allergy (Unknown, Verified 10/09/18 17:46) "TIGHTEN UP MY LIVER" tamsulosin Allergy (Unknown, Verified 10/09/18 17:46) UNKNOWN ciprofloxacin [From Cipro] Adverse Reaction (Severe, Unverified 10/09/18 17:46) abdominal/ stomach pain lisinopril Adverse Reaction (Mild, Unverified 10/09/18 17:46) RASH Height/Weight/Isolation Height 5 ft 8 in Weight 81.7 kg Chemistry 10/09/18 10/10/18 15:59 05:40 Sodium 135 L 134 L Potassium 4.1 4.0 Chloride 101 105 Carbon Dioxide 25 24 Anion Gap 8.0 5.0 BUN 30 H 28 H Creatinine 1.84 H 1.79 H Glucose 129 H 103 H Urinalysis 10/09/18 17:44 Urine Color Dark Yellow Urine Appearance Turbid A Urine pH 5.0 Ur Specific Kiana 1.029 Urine Protein 3+ H Urine Glucose (UA) Negative Urine Ketones Trace H Urine Blood 3+ H Urine Nitrite Negative Urine Bilirubin Negative Microbiology 10/09/18 17:44 Urine,Straight Cath Urine Culture - Pending 10/09/18 17:48 Blood Blood Culture - Pending 10/09/18 17:56 Blood Blood Culture - Pending
[2018-10-10] MEDS: PRAVASTATIN SOD 20 MG TAB PO SCH (19:54)
[2018-10-10] MEDS: FINASTERIDE 5 MG TAB PO SCH (19:55)
[2018-10-10] MEDS: ATENOLOL 25 MG TABLET PO SCH (19:55)
[2018-10-10] MEDS: OMEGA-3 (PURIFIED FISH OIL) 1 GM CAP PO SCH (19:55)
[2018-10-10] MEDS: AMLODIPINE BESYLATE 5 MG TAB PO SCH (20:09)
[2018-10-11] MEDS: SODIUM CHLORIDE 0.9% 1000ML 1,000 ML IV SCH (02:03)
[2018-10-11] MEDS: HEPARIN SOD 5,000 UNIT/0.5 ML VIAL SQ SCH ×2 (05:19→17:07)
[2018-10-11] MEDS: CEFEPIME 1,000 MG in SYRINGE 0 ML IV SCH (05:19)
[2018-10-11 06:53] LABS: Albumin Level 2.5 gm/dl (3.4-5.0); BUN Creatinine Ratio 17.2 (10-20); Calcium 7.8 mg/dl (8.5-10.1); Creatinine Clr Calc Pharmacy 29.9 ml/min; Est GFR (African American) 39.7; Est GFR (Non-African American) 34.3
[2018-10-11 06:56] LABS: Albumin Globulin Ratio 0.9 (0.9-2); Bilirubin,Total 1.3 mg/dl (0.2-1); Globulin 2.8 gm/dl (2.5-4.0); Total Protein 5.3 gm/dl (6.4-8.2)
[2018-10-11 07:24] LABS: Basophils # (auto) 0.01 K/uL (0-0.2); Basophils % (auto) 0.1 %; Echinocytes 1+; Eosinophils # (auto) 0.01 K/uL (0-0.5); Eosinophils % (auto) 0.1 %; Hematocrit (blood only) 34.1 % (42-52); Hemoglobin 11.7 g/dL (14.0-18.0); Immature Granulocytes # (auto) 0.04 K/uL (0.00-0.02); Immature Granulocytes % (auto) 0.3 %; Lymphocytes # (auto) 1.62 K/uL (1.2-3.4); Lymphocytes % (auto) 10.8 %; Mean Corpuscular Hgb Conc 34.3 g/dL (32-36); Mean Corpuscular Volume 91.2 fL (80-100); Mean Platelet Volume 13.3 fL (7.4-10.4); Monocytes # (auto) 4.69 K/uL (0.11-0.59); Monocytes % (auto) 31.1 %; Neutrophils # (auto) 8.69 K/uL (1.4-6.5); Neutrophils % (auto) 57.6 %; Platelet Count 75 K/uL (130-400); Platelet Estimate Decreased (Normal); RDW Coefficient of Variation 14.8 % (11.5-14.5); RDW Standard Deviation 50.1 fL (36.4-46.3); Red Blood Count 3.74 M/uL (4.7-6.1); White Blood Count 15.06 K/uL (4.8-10.8)
[2018-10-11] MEDS: SPIRONOLACTONE 25 MG TAB PO SCH (07:43)
[2018-10-11] MEDS: AMLODIPINE BESYLATE 5 MG TAB PO SCH (07:43)
[2018-10-11] MEDS: ATENOLOL 50 MG TABLET PO SCH (07:43)
[2018-10-11] MEDS: CALCIUM CARBONATE 1250MG TAB PO SCH (07:44)
[2018-10-11] MEDS: ASPIRIN 81 MG ECTAB PO SCH (07:44)
[2018-10-11] MEDS: MULTIVITAMIN TAB PO SCH (07:44)
[2018-10-11] MEDS: FOLIC ACID 400 MCG TAB PO SCH (07:44)
[2018-10-11] MEDS: PYRIDOXINE HCL 50 MG TAB PO SCH (07:44)
[2018-10-11] MEDS: CYANOCOBALAMIN 500 MCG TABLET (VITAMIN B-12) PO SCH (07:44)
[2018-10-11] MEDS: CHOLECALCIFEROL 1,000 UNITS TAB PO SCH (07:45)
--- NOTE | 2018-10-11 11:47 | Hospitalist Progress Note ---
Date of Service October 11, 2018 Assessment & Plan (1) Bladder cancer: (2) Leukocytosis: (3) Acute pyelonephritis: (4) Hydronephrosis: (5) S/P cystoscopy: (6) HLD (hyperlipidemia): (7) HTN (hypertension): Cefepime, Consult Dr Dave, Continue OP meds where appropriate, Stop IVFs, Bowel Care, Monitor Daily Labs, to see, recalled this am DVT PFx, Remove luo 10/12 if OK , Had appt in [place] to remove luo. ROS-No Headache, No Visual Changes, No Nausea, No Vomiting, No Fever, Pos Chills, No Neck Pain or Stiffness, No Chest Pain, No Palpitations, No SOB, No COVARRUBIAS, No Cough, No Sputum, No Wheezing, No Abdominal Pain, No Diarrhea, No Hematemesis, No Hemoptysis, No Unexpected Weight Loss, No Flank pain, No Melena, No Hematochezia, No Frequency, No Urgency, No Burning, No Hematuria, No Rashes, No Diaphoresis. Appetite is better, No constipation, Passed lots of gas last 24 hrs, Large BM, feeling better Physical Exam Gen-AAO x 3, NAD, Afebrile, Ple[place]-NCAT, EOMI, PERRLA, Anicteric Sclera, No Posterior Pharyngeal Erythema Neck-Supple, No JVD, No Thyromegaly, No Masses, No LAD, No Bruits Lungs-Clear to Auscultation Bilaterally, No Rales, No Rhonchi, No Wheezing, No Crepitus Chest-No S4, +S1, +S2, No S3, No Murmurs, No Rubs, No Gallops, No Ectopy Abdomen-Soft, Bowel Sounds Present, NT, Less Distended, No Hepatomegaly, No Splenomegaly, No Palpable Masses, No Rebound, No Rigidity, No Guarding Musculoskeletal-Full Range of Motion Bilaterally, No CVAT, Luo Extremities-No Cyanosis, No Clubbing, No Edema Nuero-Cranial Nerves II-XII grossly intact, Motor WNL, DTRs WNL, Strength WNL, Non Focal Psych-Normal Mood Results & Data Vital Signs (Past 12 Hours) Vital Signs Temp Pulse Resp BP Pulse Ox 10/11/18 11:06 36.8 C 76 19 114/53 L 96 10/11/18 06:56 36.6 C 60 18 126/57 L 95 10/11/18 04:46 36.9 C 61 19 122/55 L 95 Current Diagnoses Malignant neoplasm of bladder, unspecified (10/09/18) Elevated white blood cell count, unspecified (10/09/18) Hyperlipidemia, unspecified (10/09/18) Essential (primary) hypertension (10/09/18) Acute pyelonephritis (10/09/18) Unspecified hydronephrosis (10/09/18) Other specified postprocedural states (10/09/18) Allergies atorvastatin Allergy (Unknown, Verified 10/09/18 17:46) "TIGHTENS UP MY LIVER" simvastatin Allergy (Unknown, Verified 10/09/18 17:46) "TIGHTEN UP MY LIVER" tamsulosin Allergy (Unknown, Verified 10/09/18 17:46) UNKNOWN ciprofloxacin [From Cipro] Adverse Reaction (Severe, Unverified 10/09/18 17:46) abdominal/ stomach pain lisinopril Adverse Reaction (Mild, Unverified 10/09/18 17:46) RASH Height/Weight/Isolation Height 5 ft 8 in Weight 80.1 kg Chemistry 10/09/18 10/10/18 10/11/18 15:59 05:40 05:56 Sodium 135 L 134 L 136 Potassium 4.1 4.0 4.0 Chloride 101 105 106 Carbon Dioxide 25 24 23 Anion Gap 8.0 5.0 7.0 BUN 30 H 28 H 31 H Creatinine 1.84 H 1.79 H 1.78 H Glucose 129 H 103 H 94 Urinalysis 10/09/18 17:44 Urine Color Dark Yellow Urine Appearance Turbid A Urine pH 5.0 Ur Specific Hood 1.029 Urine Protein 3+ H Urine Glucose (UA) Negative Urine Ketones Trace H Urine Blood 3+ H Urine Nitrite Negative Urine Bilirubin Negative Microbiology 10/09/18 17:44 Urine,Straight Cath Urine Culture - Final No growth - less than 1,000 colonies/mL. 10/09/18 17:56 Blood Blood Culture - Preliminary No growth to date. 10/09/18 17:48 Blood Blood Culture - Preliminary No growth to date.
[2018-10-11 15:12] VITALS: BP 142/62; PULSE 65; TEMP 97.3; O2SAT 98
--- NOTE | 2018-10-11 15:35 | Discharge Summary ---
Date of Service October 11, 2018 Admission HPI Per Admitting Provider 83 year old male s/p bladder surgery who presents to the Emergency Room with complaints of catheter problems. The patient states that the catheter is currently leaking but the bag is filling up. He notes that he had same-day surgery for bladder cancer 2 days ago at [facility] ([place] and left with the catheter. He was prescribed abx on DC. c/o constipation last 4 days. He feels bloated and distended. The patient also reports that he has some abdominal pain that radiates across his abdomen. The patient also complains of chills and coughing. The patient denies vomiting. He was found to have a Leukocytosis and Hydronephrosis, Dr Jolie MAR was contacted by ER Dr. He said we could take care of him here at [facility] and not to transfer him to [place]. PT admitted 10/09 and as of right now no one from saw him. I'm getting a stat CBC and will DC him on PO Cefdinir. He has a f/u appt 10/12 to remove luo at [facility] c Dr Chase Aguilar-His Urologist Admission Exam Per Admitting Provider ROS-No Headache, No Visual Changes, No Fever, No Chills, No Neck Pain or Stiffness, No Chest Pain, No Palpitations, No SOB, No COVARRUBIAS, No Cough, No Sputum, No Wheezing, No Abdominal Pain, No Diarrhea, No Hematemesis, No Hemoptysis, No Unexpected Weight Loss, No Flank pain, No Melena, No Hematochezia, No Frequency, No Urgency, No Burning, No Hematuria, No Rashes, No Diaphoresis. Appetite is Normal Physical Exam Gen-AAO x 3, NAD, Afebrile Head-NCAT, EOMI, PERRLA, Anicteric Sclera, No Posterior Pharyngeal Erythema Neck-Supple, No JVD, No Thyromegaly, No Masses, No LAD, No Bruits Lungs-Clear to Auscultation Bilaterally, No Rales, No Rhonchi, No Wheezing, No Crepitus Chest-No S4, +S1, +S2, No S3, No Murmurs, No Rubs, No Gallops, No Ectopy Abdomen-Soft, Bowel Sounds Present, Non Tender, Non Distended, No Hepatomegaly, No Splenomegaly, No Palpable Masses, No Rebound, No Rigidity, No Guarding Musculoskeletal-Full Range of Motion Bilaterally, No CVAT Extremities-No Cyanosis, No Clubbing, No Edema Nuero-Cranial Nerves II-XII grossly intact, Motor WNL, DTRs WNL, Strength WNL, No Focal Psych-Normal Mood Principal Diagnosis (1) Bladder cancer: (2) Leukocytosis: (3) Acute pyelonephritis: (4) Hydronephrosis: (5) S/P cystoscopy: (6) HLD (hyperlipidemia): (7) HTN (hypertension): Discharge Exam ROS-No Headache, No Visual Changes, No Nausea, No Vomiting, No Fever, No Chills, No Neck Pain or Stiffness, No Chest Pain, No Palpitations, No SOB, No COVARRUBIAS, No Cough, No Sputum, No Wheezing, No Abdominal Pain, No Diarrhea, No Hematemesis, No Hemoptysis, No Unexpected Weight Loss, No Flank pain, No Melena, No Hematochezia, No Frequency, No Urgency, No Burning, No Hematuria, No Rashes, No Diaphoresis. Appetite is Normal Physical Exam Gen-AAO x 3, NAD, Afebrile Head-NCAT, EOMI, PERRLA, Anicteric Sclera, No Posterior Pharyngeal Erythema Neck-Supple, No JVD, No Thyromegaly, No Masses, No LAD, No Bruits Lungs-Clear to Auscultation Bilaterally, No Rales, No Rhonchi, No Wheezing, No Crepitus Chest-No S4, +S1, +S2, No S3, No Murmurs, No Rubs, No Gallops, No Ectopy Abdomen-Soft, Bowel Sounds Present, Non Tender, Non Distended, No Hepatomegaly, No Splenomegaly, No Palpable Masses, No Rebound, No Rigidity, No Guarding Musculoskeletal-Full Range of Motion Bilaterally, No CVAT Extremities-No Cyanosis, No Clubbing, No Edema Nuero-Cranial Nerves II-XII grossly intact, Motor WNL, DTRs WNL, Strength WNL, Non Focal Psych-Normal Mood +Luo Discharge Data Allergies Allergy/AdvReac Type Severity Reaction Status Date / Time atorvastatin Allergy Unknown "TIGHTENS Verified 10/09/18 17:46 UP MY LIVER" simvastatin Allergy Unknown "TIGHTEN Verified 10/09/18 17:46 UP MY LIVER" tamsulosin Allergy Unknown UNKNOWN Verified 10/09/18 17:46 ciprofloxacin [From Cipro] AdvReac Severe abdominal/ Unverified 10/09/18 17:46 stomach pain lisinopril AdvReac Mild RASH Unverified 10/09/18 17:46 Consultations 10/09/18 18:43 ED Decision to Admit Stat 10/09/18 20:08 Consult Urology Routine Current Diagnoses Malignant neoplasm of bladder, unspecified (10/09/18) Elevated white blood cell count, unspecified (10/09/18) Hyperlipidemia, unspecified (10/09/18) Essential (primary) hypertension (10/09/18) Acute pyelonephritis (10/09/18) Unspecified hydronephrosis (10/09/18) Other specified postprocedural states (10/09/18) Allergies atorvastatin Allergy (Unknown, Verified 10/09/18 17:46) "TIGHTENS UP MY LIVER" simvastatin Allergy (Unknown, Verified 10/09/18 17:46) "TIGHTEN UP MY LIVER" tamsulosin Allergy (Unknown, Verified 10/09/18 17:46) UNKNOWN ciprofloxacin [From Cipro] Adverse Reaction (Severe, Unverified 10/09/18 17:46) abdominal/ stomach pain lisinopril Adverse Reaction (Mild, Unverified 10/09/18 17:46) RASH Height/Weight/Isolation Height 5 ft 8 in Weight 80.1 kg Chemistry 10/09/18 10/10/18 10/11/18 15:59 05:40 05:56 Sodium 135 L 134 L 136 Potassium 4.1 4.0 4.0 Chloride 101 105 106 Carbon Dioxide 25 24 23 Anion Gap 8.0 5.0 7.0 BUN 30 H 28 H 31 H Creatinine 1.84 H 1.79 H 1.78 H Glucose 129 H 103 H 94 Urinalysis 10/09/18 17:44 Urine Color Dark Yellow Urine Appearance Turbid A Urine pH 5.0 Ur Specific [place] 1.029 Urine Protein 3+ H Urine Glucose (UA) Negative Urine Ketones Trace H Urine Blood 3+ H Urine Nitrite Negative Urine Bilirubin Negative Microbiology 10/09/18 17:44 Urine,Straight Cath Urine Culture - Final No growth - less than 1,000 colonies/mL. 10/09/18 17:56 Blood Blood Culture - Preliminary No growth to date. 10/09/18 17:48 Blood Blood Culture - Preliminary No growth to date. Ordered Studies 10/09/18 15:49 CT abd pelvis wo con Stat Hospital Course (1) Bladder cancer: (2) Leukocytosis: (3) Acute pyelonephritis: (4) Hydronephrosis: (5) S/P cystoscopy: (6) HLD (hyperlipidemia): (7) HTN (hypertension): He was found to have a Leukocytosis and Hydronephrosis, Dr Jolie MAR was contacted by ER Dr. He said we could take care of him here at [facility] and not to transfer him to [place]. PT admitted 10/09 and as of right now no one from saw him. I'm getting a stat CBC and will DC him on PO Cefdinir. He has a f/u appt 10/12 to remove luo at [facility] c Dr Chase Aguilar-His Urologist. He present c Shakes, chills and Rigors, responded well to cefepime. DC today and f/u as above c luo Total Time Total Time Spent Total Time Spent (In Minutes): 45 mins Total Time Includes: Examination of the Patient, Discharge Planning, Medication Reconciliation and Communication With Other Providers Discharge Plan Discharge Items Patient Disposition: Home - Self-Care Reason For Visit: UTI Discharge Diagnosis: UTI Bladder CA CKD Hydronephrosis Discharge Goals: Decrease discomfort, Improve disease control and Improve function Activity: As commented below Activity Comment: Relax until seen by Dr Aguilar, further instructions from him Lifting: None Bathing: No limitations Sexual Activity: Wait until after follow-up appointment Exercise/Sports: Wait until after follow-up appointment Driving/Machine Use Comment: Per Dr Aguilar Weightbearing: Left weightbearing and Right weightbearing Non-emergency contact: Primary Care Provider and Urologist Call non-emergency contact if: you have any medication questions, your symptoms worsen, your pain is not controlled and your temperature is above 100.5 Follow-up/Referrals: Javon Scales DO [Primary Care Provider] - Diet: Regular Addtl Provider Instructions: Patient at [facility] with WBCs 26 UTI rigors Chills and Shakes after Bladder Scraping at [facility] [place], DC 10/11 on PO Omnicef and f/u c Dr Chase Aguilar at [facility] for luo removal Prescriptions: New cefdinir 300 mg capsule 300 mg PO BID 7 Days Qty: 14 RF: 0 Continued multivitamin Tablet 1 tab PO QAM RF: 0 polyethylene glycol 3350 17 gram Powder In Packet 17 g PO DAILY PRN (Reason: Constipation) RF: 0 nitroglycerin [Nitrostat] 0.3 mg Tablet, Sublingual 0.3 mg sublingual DIRECTED RF: 0 atenolol 25 mg tablet 50 mg PO QAM RF: 0 atenolol 25 mg tablet 25 mg PO HS RF: 0 amlodipine 2.5 mg tablet 5 mg PO HS RF: 0 aspirin [Aspirin Low Dose] 81 mg Tablet,Delayed Release (Dr/Ec) 81 mg PO QAM RF: 0 spironolactone 25 mg tablet 25 mg PO QAM RF: 0 calcium carbonate 500 mg calcium (1,250 mg) Tablet 500 mg PO DAILY RF: 0 omeprazole 20 mg Capsule,Delayed Release(Dr/Ec) 20 mg PO DIRECTED PRN (Reason: Heartburn) RF: 0 pravastatin 20 mg tablet 20 mg PO HS RF: 0 pyridoxine (vitamin B6) 100 mg Tablet 100 mg PO QAM RF: 0 finasteride 5 mg tablet 5 mg PO PM RF: 0 cholecalciferol (vitamin D3) [Vitamin D3] 1,000 unit Capsule 1,000 unit PO DAILY RF: 0 Flonase Sensimist 27.5 mcg/actuation [place],Suspension 1 spray INTRANASAL DIRECTED PRN (Reason: congestion) RF: 0 vitamin J30-hrrlz acid 500-400 mcg Tablet 1 tab PO QAM RF: 0 coenzyme Q10 50 mg Tablet 50 mg PO DAILY RF: 0 [place]-3 350 mg-235 mg- 90 mg-597 mg Capsule,Delayed Release(Dr/Ec) 1 cap PO PM RF: 0 Stand-Alone Forms: [facility] Discharge Orders: Discharge Order (Routine); Ordered 10/11/18 Ordered By: Ky Cowan Admission Data Admit Date/Time: 10/09/18 18:26 Attending Provider: Ky Cowan Admit Provider: Ky Cowan Primary Care Provider: Javon Scales Other Providers: Andrea Sebastian ; Jesus Dave Service: Telemetry
[2018-10-11 16:05] LABS: Hematocrit (blood only) 35.1 % (42-52); Hemoglobin 12.2 g/dL (14.0-18.0); Mean Corpuscular Hgb Conc 34.8 g/dL (32-36); RDW Coefficient of Variation 14.7 % (11.5-14.5); RDW Standard Deviation 48.6 fL (36.4-46.3); White Blood Count 11.23 K/uL (4.8-10.8)
[2018-10-11 16:16] LABS: Mean Platelet Volume 13.5 fL (7.4-10.4); Platelet Count 80 K/uL (130-400); Platelet Estimate Decreased (Normal)
== END 2018-10-11 17:43 | disposition home health service (06) | DRG 690 ==
LOC: ED 15:29 → 2E 18:26

== ENCOUNTER 2024-05-15 09:35 | Inpatient (IN) ==
--- NOTE | 2024-05-15 09:59 | Emergency Department Note ---
Impression & Plan Syncope, New onset atrial fibrillation, Fall, Closed head injury ED Provider Note Name: YUE MCGOVERN Age: 88 Sex: Male Arrives Via: Walk-In Informant: Patient, , daughter ED Provider: Jerad Whiting MD Chief Complaint: Syncope Impression: As per impressions above Medical Decision Makin-year-old gentleman with history of bladder cancer thrombocytopenia amongst others arrives for evaluation of syncope while in the bathroom. Did strike the right side of his head with an abrasion/skin tear. Tetanus is up-to-date per patient and family. CT of the head and cervical spine were obtained which are fortunately unremarkable. Patient does have a history of thrombocytopenia that his platelets have dropped a bit more than usual. Patient is noted to be in A- fib which is new. He has no strokelike symptoms on examination. Patient is awake alert oriented. No clear evidence of infection at this time. Discussed with hospitalist for further workup and evaluation. Triage/Nursing Notes reviewed by Me Differential:Vasovagal event, dehydration, infection, hypoglycemia, electrolyte abnormalities, cardiac sources, intracerebral event, pulmonary embolism, seizure, toxicologic, neurologic, as well as other pathologies. Vital Signs: reviewed and remarkable for no significant abnormalities Labs:ED labs Reviewed by me and remarkable for thrombocytopenia worsened from baseline Imaging:CT of the head without contrast as per my informal interpretation there is no intracranial hemorrhage or mass effect appreciated. Confirmed by radiologist. CT of the cervical spine without contrast as per radiologist no fracture or dislocation. Chest x-ray 1 view as per my interpretation no infiltrate no effusion no pneumothorax appreciated. EKG:As per my interpretation. Indication syncope. Atrial fibrillation at 80 bpm with a QTc of 422. There is no ischemia appreciated. Compared to EKG 01/16/2020 there is new onset A-fib. Cardiac/Tele Monitoring: Cardiac Monitoring: An Order was placed for continuous cardiac monitoring. The monitor shows a rate of 80 with a atrial fibrillation rhythm. Consults:Discussed with hospitalist who will further evaluate and manage Plan: Disposition:Hospitalization. Condition: Good History of Present Illness: 88-year-old gentleman arrives for evaluation of syncope. Patient with a history of bladder cancer currently undergoing treatment at [facility]. He is not on any anticoagulant other than aspirin but it has been on hold due to recent treatments for his bladder cancer. Patient notes he was feeling well this morning he went to the bathroom and then woke up with his head against the toilet. Notes a mild right frontal headache. Denies any neck pain, back pain, abdominal pain or other complaints. States he was able to ambulate after this once his helped him get up. Denies any fevers, chills, shortness of breath, chest pain, Gee pain, nausea, vomiting, other concerning signs or symptoms. Denies frequent syncope or falls. Past Medical History:See Below Home Medications:See Below Allergies:See Below Vitals:Blood Pressure: 119/69, Pulse 83, RR 20, T 36.8C, O2 98% on RA Physical Exam: GENERAL: Patient is anxious appearing and in mild distress. HEAT: Hematoma right forehead with abrasion and mild venous oozing. NECK: No midline cervical TTP nor step off. RESPIRATORY: No dyspnea. Clear to auscultation and equal bilaterally. CARDIOVASCULAR: Irregular.No murmur appreciated. GASTROINTESTINAL: Abdomen soft, non-tender, no peritonitis. EXTREMITIES: Normal motion all extremities, no cyanosis, no edema. NEUROLOGIC: Alert and oriented. No focal neurologic deficits appreciated SKIN: No rash, no jaundice, no diaphoresis. PSYCH: Appropriate GCS: 15 ED Course: Times/Reassessments: Patient stable throughout breathing comfortably and agreeable to hospitalization Jerad Whiting MD Past Med/Surg History Problem List (Updated 05/16/24 @ 06:48 by Jerad Whiting MD) Closed head injury (Acute) Dyslipidemia, goal LDL below 70 ASCVD (arteriosclerotic cardiovascular disease) Fall (Acute) New onset atrial fibrillation (Acute) Syncope (Acute) Dyslipidemia Bladder cancer (Acute) HTN (hypertension) (Acute) Medical History History of [place] (myocardial infarction) CAD (coronary artery disease) AAA (abdominal aortic aneurysm) Chronic ITP (idiopathic thrombocytopenia) Macular degeneration RORY inhibitor intolerance Basal cell carcinoma of skin Benign prostatic hyperplasia with urinary retention Polyneuropathy in other diseases classified elsewhere Iliac aneurysm CKD (chronic kidney disease) stage 3, GFR 30-59 ml/min Adenocarcinoma, lung Lipoma HLD (hyperlipidemia) Bladder cancer Surgical History Hx of CABG History of tonsillectomy History of repair of aneurysm of abdominal aorta using endovascular stent graft S/P cystoscopy Multiple History of bladder surgery Family History Other Diabetes Heart disease Hypertension Stroke Social History Smoking Status: Former smoker Tobacco Type: Cigarettes Second Hand Exposure: No; Do You Dip or Chew Tobacco: No; Tobacco Cessation Education Requested by Patient: No Hx Alcohol Use: Yes Alcohol type: beer Hx Substance Use: No Preferred Language: Gambian Communication Ability: Effective 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 Beliefs That Will Affect Care: None Current Living Situation: Spouse Other Information That Helps Us Care for You: No Feels Safe at Home: Yes Safety Concerns: Feels Safe At This Time Assistive Devices: Denture - Upper Allergies Allergies Allergy/AdvReac Type Severity Reaction Status Date / Time atorvastatin Allergy Unknown "TIGHTENS Verified 01/15/20 23:34 UP MY LIVER" simvastatin Allergy Unknown "TIGHTEN Verified 01/15/20 23:34 UP MY LIVER" tamsulosin Allergy Unknown UNKNOWN Verified 01/15/20 23:34 ciprofloxacin [From Cipro] AdvReac Severe abdominal/ Unverified 01/15/20 23:34 stomach pain lisinopril AdvReac Mild RASH Unverified 01/15/20 23:34 Home Meds Home Medications Medication Instructions Recorded Confirmed amlodipine 2.5 mg tablet 2.5 mg PO DAILY 10/09/18 05/15/24 aspirin 81 mg tablet,delayed 81 mg PO QAM 10/09/18 05/15/24 release (Rober Low Dose Aspirin) atenolol 25 mg tablet 25 mg PO BID 10/09/18 05/15/24 cholecalciferol (vitamin D3) 25 1,000 unit PO DAILY 10/09/18 05/15/24 mcg (1,000 unit) capsule (Vitamin D3) coenzyme Q10 50 mg tablet 50 mg PO DAILY 10/09/18 05/15/24 fluticasone furoate 27.5 1 spray intranasal DIRECTED PRN 10/09/18 05/15/24 mcg/actuation nasal congestion spray,suspension (Flonase Sensimist) nitroglycerin 0.3 mg sublingual 0.3 mg sublingual DIRECTED 10/09/18 05/15/24 tablet (Nitrostat) polyethylene glycol 3350 17 gram 17 g PO DAILY PRN Constipation 10/09/18 05/15/24 oral powder packet pravastatin 20 mg tablet 20 mg PO HS 10/09/18 05/15/24 pyridoxine (vitamin B6) 100 mg 200 mg PO 3XWK 10/09/18 05/15/24 tablet amoxicillin 500 mg tablet 2,000 mg PO ONCE PRN 1 hr prior to 01/15/20 05/15/24 dental procedure oxycodone 5 mg tablet 5 mg PO Q6H PRN Severe Pain (Scale 01/15/20 05/15/24 Score 7-10) [place] Oil 1 cap PO DAILY 05/15/24 05/15/24 silodosin 4 mg capsule 4 mg PO DAILY 05/15/24 05/15/24 Results & Data (ED) Vital Signs Vital Signs - 24 hr 05/15/24 09:37 05/15/24 10:03 05/15/24 10:22 Temperature 36.8 C 36.5 C Temperature Source Skin Oral Pulse Rate 83 69 Pulse Rate [Apical] 78 Pulse Rhythm [Apical] Regular Pulse Strength [Apical] Normal Respiratory Rate 20 20 Respiratory Effort / Characteristics Non-Labored Spontaneous Non-Labored Spontaneous Respiratory Depth Normal Normal Respiratory Pattern Regular Regular Blood Pressure 119/69 Blood Pressure [Left Arm] 151/69 H Blood Pressure Mean 85 Blood Pressure Mean [Left Arm] 96 Blood Pressure Position [Left Arm] Semi-fowlers Pulse Oximetry 98 98 Oxygen Delivery Method Room Air Room Air Sepsis Recent Fever Within 48 Hours No Sepsis New/Unexplained Change in Mental Status N/A Sepsis Action Taken by Nursing No Action Required Laboratory Data 05/15/24 09:55 05/15/24 09:55 Lab Results 05/15/24 05/15/24 Range/Units 09:55 11:56 WBC 4.46 L (4.8-10.8) K/ul RBC 4.31 L (4.70-6.10) M/uL Hgb 13.6 L (14.0-18.0) g/dl Hct 40.1 L (42.0-52.0) % MCV 93.0 (80.0-100.0) fL MCH 31.6 (25.0-34.0) pg MCHC 33.9 (32.0-36.0) g/dL RDW Std Deviation 52.2 H (36.4-46.3) fL RDW Coeff of Kriss 15.3 H (11.5-14.5) % Plt Count 44 L (130-400) K/uL Immature Gran % (Auto) 0.4 % Neut % (Auto) 26.3 % Lymph % (Auto) 40.1 % [place] % (Auto) 33.2 % Eos % (Auto) 0.0 % Baso % (Auto) 0.0 % Neut # (Auto) 1.17 L (1.40-6.50) K/uL Lymph # (Auto) 1.79 (1.20-3.40) K/uL [place] # (Auto) 1.48 H (0.11-0.59) K/uL Eos # (Auto) 0.00 (0.00-0.50) K/uL Baso # (Auto) 0.00 (0.00-0.20) K/uL Immature Gran # (Auto) 0.02 (0.01-0.20) K/uL Platelet Estimate Decreased L (Normal) Giant Platelets 1+ Sodium 139 (136-145) mmol/L Potassium 3.5 (3.5-5.1) mmol/L Chloride 105 (98-107) mmol/L Carbon Dioxide 28 (21-32) mmol/L Anion Gap 6 (3-11) BUN 37 H (6-23) mg/dl Creatinine 0.91 (0.6-1.4) mg/dl Est Cr Clr Drug Dosing 46.2 ml/min eGFR 80.56 BUN/Creatinine Ratio 40.7 H (10-20) Glucose 105 H (70-99(Fasting)) mg/dl Calcium 8.4 L (8.6-10.3) mg/dl Magnesium 1.9 (1.7-2.4) mg/dl Total Bilirubin 1.3 H (0.2-1.0) mg/dl Direct Bilirubin 0.2 (0-0.2) mg/dl AST 15 (13-39) U/L ALT 11 (7-52) U/L Alkaline Phosphatase 57 (34-104) U/L Troponin I High Sens 12.0 (0-20) pg/ml Total Protein 5.8 L (6.0-8.3) gm/dl Albumin 3.6 (3.4-5.0) gm/dl TSH 2.091 (0.300-4.500) uIu/ml Urine Color Yellow Urine Appearance Clear (Clear) Urine pH 6.0 (4.5-7.5) Ur Specific [place] 1.025 (1.000-1.030) Urine Protein 1+ H (Negative) Urine Glucose (UA) Negative (Negative) Urine Ketones Negative (Negative) Urine Blood Trace-intact H (Negative) Urine Nitrite Negative (Negative) Urine Bilirubin Negative (Negative) Urine Urobilinogen Negative (Negative) Ur Leukocyte Esterase Negative (Negative) Urine RBC 3-5 H (0-2) /hpf Urine WBC 6-10 H (0-5) /hpf Ur Epithelial Cells 6-10 H (0-2) /hpf Urine Bacteria 1+ H (None Seen) Administered Medications Acetaminophen (Acetaminophen 325 Mg Tab) 650 mg PO Q4H PRN PRN Reason: Pain or Fever Stop: 06/14/24 17:29 Last Admin: 05/16/24 02:22 Dose: 650 mg Documented By: JOANIE Metoprolol Tartrate (Metoprolol Tartrate 25 Mg Tab) 25 mg PO Q6H [facility] Stop: 06/14/24 12:44 Last Admin: 05/16/24 02:22 Dose: 25 mg Documented By: Admin: 05/15/24 20:41 Dose: 25 mg Documented By: Admin: 05/15/24 15:11 Dose: 25 mg Documented By: KEITH Miscellaneous (Silodosin 4 Mg-Order Awaiting Action) 1 each N/A [facility] Stop: 06/15/24 00:00 Last Admin: 05/15/24 23:57 Dose: Not Given Documented By: JOANIE Oxycodone HCl (Oxycodone Hcl Ir 5 Mg Tab (Immediate Release)) 5 mg PO Q6H PRN PRN Reason: Mod-Sev Pain (Scale 4-10) Stop: 05/29/24 17:29 Last Admin: 05/15/24 20:45 Dose: 5 mg Documented By: JOANIE Pravastatin Sodium (Pravastatin Sod 20 Mg Tab) 20 mg PO [facility] Stop: 06/14/24 20:59 Last Admin: 05/15/24 20:42 Dose: 20 mg Documented By: JOANIE Discontinued Medications Magnesium Sulfate/Dextrose (Magnesium Sulfate / D5w) 1 gm in 100 mls @ 50 mls/hr IV ONE ONE Stop: 05/15/24 14:22 Last Infusion: 05/15/24 14:43 Dose: Infused Documented By: Admin: 05/15/24 12:34 Dose: 50 mls/hr Documented By: MICHELLE Potassium Chloride (Potassium Chloride 10 Meq Tabcr) 30 meq PO NOW ONE Stop: 05/15/24 14:26 Last Admin: 05/15/24 15:11 Dose: 30 meq Documented By: KEITH Imaging Data Radiologist's Impression: Cervical Spine CT 05/15/24 09:57 CT cervical spine wo con CT DOSE: 1150.95 mGy.cm CLINICAL HISTORY: 88 years-old Male with trauma. Acute head trauma status post fall COMPARISON: CT head of same day, chest radiograph of same day, PET/CT 02/13/2029. TECHNIQUE: Multiple axial CT images of the cervical spine were obtained without contrast. A dose lowering technique was utilized adhering to the principles of ALARA. FINDINGS: Multilevel moderate to severe intervertebral disc space narrowing with moderate bridging osteophytosis and moderate to severe facet arthrosis. There is severe degeneration at C1-C2. No acute cervical spine fracture or subluxation. Dextroscoliosis of the cervicothoracic junction. The cervical soft tissues appear unremarkable. No pneumothorax. Partially imaged ill-defined subsolid nodular foci of the lung apices. Foci within the left lung apex measuring up to 1.7 cm. IMPRESSION: 1. No acute cervical spine fracture or subluxation. 2. Partially imaged nodular foci at the lung apices suspicious for adenomatous lesions. Correlation with follow-up nonemergent chest CT recommended. ACT 112: Positive. There are findings on this exam that require communication between the performing entity and the patient following Patient Test Result Information Act ([place] Act 112) guidelines. The above report was generated using voice recognition software. It may contain grammatical, syntax or spelling errors. Electronically signed by: Felton Jolley M.D. 05/15/2024 11:04 AM Chest X-Ray 05/15/24 09:57 XR chest 1V portable HISTORY: 88 years-old Male syncope COMPARISON: CT cervical spine of same day, chest radiograph 01/15/2020, PET CT 02/13/2009 TECHNIQUE: AP view the chest FINDINGS: Cardiac silhouette is enlarged. Median sternotomy with CABG. Ill-defined biapical nodular opacities, right greater than left. Foci measure up to 4.7 cm on the right and 3 cm on the left. Mild pulmonary emphysema. No pneumothorax, pleural effusion or overt pulmonary edema. Degenerative changes of the shoulders and spine. Atherosclerosis of the aorta. Pulmonary emphysema. IMPRESSION: 1. Cardiomegaly without acute process. 2. Prior median sternotomy and CABG. 3. Emphysema with biapical nodular opacities again noted which have progressed from the 02/13/2009 PET/CT. Correlation with nonemergent follow-up CT chest recommended. ACT 112: Positive. There are findings on this exam that require communication between the performing entity and the patient following Patient Test Result Information Act [place] Act 112) guidelines. The above report was generated using voice recognition software. It may contain grammatical, syntax or spelling errors. Electronically signed by: Felton Jolley M.D. 05/15/2024 10:[address] 05/15/24 09:57 CT head/brain wo con CLINICAL HISTORY: trauma/syncope Technique: Contiguous axial CT images of the head were acquired from the base of the skull to the vertex without intravenous contrast administration. Images were viewed in brain, subdural and bone windows. Automated dose lowering techniques and/or adjustment according to patient size were utilized for this exam. Comparison: None available at the time of this dictation. Findings: Areas of decreased attenuation are present in the periventricular and subcortical white matter bilaterally consistent with small vessel ischemic disease. Generalized cerebral atrophy with commensurate enlargement of the ventricles, sulci, and cisterns is also present. There is no acute intracranial hemorrhage or evidence of acute territorial infarction. No shift of the midline structures, mass effect, or extra-axial abnormalities are shown. Atherosclerotic calcifications are present in the intracranial segments of the internal carotid arteries. Imaged portions of the paranasal sinuses and mastoid air cells are clear. The orbits appear normal. There are no acute fractures of the calvaria or scalp swelling. Impression: No acute intracranial hemorrhage, no evidence of acute territorial infarction or other acute intracranial disease process. ACT 112: Negative or not required by law. Electronically signed by: Irvin Hernandez M.D. 05/15/2024 10:36 AM Discharge Plan Visit Data Chief Complaint: Head Injury, Minor Stated Complaint: SYNCOPE, HEAD LAC, BLOOD THINNER ED Provider: Jerad Whiting Discharge Problem: Syncope, New onset atrial fibrillation, Fall, Closed head injury Patient Disposition: Admitted As Inpatient Discharge Instructions Interventions: ED Discharge Assessment Last Done: 05/15/24 17:05 Discharge Problem: Syncope Qualifiers: Syncope type: unspecified Qualified Code(s): R55 - Syncope and collapse Fall Qualifiers: Encounter type: initial encounter Qualified Code(s): W19.XXXA - Unspecified fall, initial encounter Closed head injury Qualifiers: Encounter type: initial encounter Qualified Code(s): S09.90XA - Unspecified injury of head, initial encounter
[2024-05-15 10:24] LABS: Hematocrit (blood only) 40.1 % (42.0-52.0); Hemoglobin 13.6 g/dl (14.0-18.0); White Blood Count 4.46 K/ul (4.8-10.8)
[2024-05-15 10:25] LABS: Mean Corpuscular Hemoglobin 31.6 pg (25.0-34.0); Mean Corpuscular Hgb Conc 33.9 g/dL (32.0-36.0); RDW Coefficient of Variation 15.3 % (11.5-14.5); RDW Standard Deviation 52.2 fL (36.4-46.3); Red Blood Count 4.31 M/uL (4.70-6.10)
--- NOTE | 2024-05-15 10:36 | Electrocardiogram Report ---
Test Reason : Blood Pressure : */* mmHG Vent. 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
--- NOTE | 2024-05-15 10:36 | XRay Report ---
XR chest 1V portable HISTORY: 88 years-old Male syncope COMPARISON: CT cervical spine of same day, chest radiograph 01/15/2020, PET CT 02/13/2009 TECHNIQUE: AP view the chest FINDINGS: Cardiac silhouette is enlarged. Median sternotomy with CABG. Ill-defined biapical nodular opacities, right greater than left. Foci measure up to 4.7 cm on the right and 3 cm on the left. Mild pulmonary emphysema. No pneumothorax, pleural effusion or overt pulmonary edema. Degenerative changes of the sh oulders and spine. Atherosclerosis of the aorta. Pulmonary emphysema. IMPRESSION: 1. Cardiomegaly without acute process. 2. Prior median sternotomy and CABG. 3. Emphysema with biapical nodular opacities again noted which have progressed from the 02/13/2009 PET/ CT. Correlation with nonemergent follow-up CT chest recommended. ACT 112: Positive. There are findings on this exam that require communication between the performing entity and the patient following Patient Test Result Information Act [place] Act 112) guidelines. The above report was generated using voice recognition software. It may contain grammatical, syntax o r spelling errors. Electronically signed by: Felton Jolley M.D. 05/15/2024 10:35 AM
--- NOTE | 2024-05-15 10:37 | CT Scan Report ---
CT head/brain wo con CLINICAL HISTORY: trauma/syncope Technique: Contiguous axial CT images of the head were acquired from the base of the skull to the inocencio ryan without intravenous contrast administration. Images were viewed in brain, subdural and bone [facility]. Automated dose lowering techniques and/or adjustment according to patient size were utilized for this exam. Comparison: None available at the time of this dictation. Findings: Areas of decreased attenuation are present in the periventricular and subcortical white matter bilate rally consistent with small vessel ischemic disease. Generalized cerebral atrophy with commensurate e nlargement of the ventricles, sulci, and cisterns is also present. There is no acute intracranial hem orrhage or evidence of acute territorial infarction. No shift of the midline structures, mass effect, or extra-axial abnormalities are shown. Atherosclerotic calcifications are present in the intracran ial segments of the internal carotid arteries. Imaged portions of the paranasal sinuses and mastoid air cells are clear. The orbits appear normal. There are no acute fractures of the calvaria or scalp swelling. Impression: No acute intracranial hemorrhage, no evidence of acute territorial infarction or other acute intracra nial disease process. ACT 112: Negative or not required by law. Electronically signed by: Irvin Hernandez M.D. 05/15/2024 10:36 AM
[2024-05-15 10:39] LABS: Albumin Level 3.6 gm/dl (3.4-5.0); BUN Creatinine Ratio 40.7 (10-20); Bilirubin Direct 0.2 mg/dl (0-0.2); Bilirubin,Total 1.3 mg/dl (0.2-1.0); Calcium 8.4 mg/dl (8.6-10.3); Creatinine Clr Calc Pharmacy 46.2 ml/min; Magnesium 1.9 mg/dl (1.7-2.4); Potassium 3.5 mmol/L (3.5-5.1); Total Protein 5.8 gm/dl (6.0-8.3)
[2024-05-15 10:54] LABS: Thyroid Stimulating Hormone 2.091 uIu/ml (0.300-4.500)
--- NOTE | 2024-05-15 11:05 | CT Scan Report ---
CT cervical spine wo con CT DOSE: 1150.95 mGy.cm CLINICAL HISTORY: 88 years-old Male with trauma. Acute head trauma status post fall COMPARISON: CT head of same day, chest radiograph of same day, PET/CT 02/13/2029. TECHNIQUE: Multiple axial CT images of the cervical spine were obtained without contrast. A dose low ering technique was utilized adhering to the principles of ALARA. FINDINGS: Multilevel moderate to severe intervertebral disc space narrowing with moderate bridging os teophytosis and moderate to severe facet arthrosis. There is severe degeneration at C1-C2. No acute c ervical spine fracture or subluxation. Dextroscoliosis of the cervicothoracic junction. The cervical soft tissues appear unremarkable. No pneumothorax. Partially imaged ill-defined subsoli d nodular foci of the lung apices. Foci within the left lung apex measuring up to 1.7 cm. IMPRESSION: 1. No acute cervical spine fracture or subluxation. 2. Partially imaged nodular foci at the lung apices suspicious for adenomatous lesions. Correlation w ith follow-up nonemergent chest CT recommended. ACT 112: Positive. There are findings on this exam that require communication between the performing entity and the patient following Patient Test Result Information Act ([place] Act 112) guidelines. The above report was generated using voice recognition software. It may contain grammatical, syntax o r spelling errors. Electronically signed by: Felton Jolley M.D. 05/15/2024 11:04 AM
[2024-05-15 11:08] LABS: Giant Platelets 1+; Immature Granulocytes # (auto) 0.02 K/uL (0.01-0.20); Immature Granulocytes % (auto) 0.4 %; Lymphocytes # (auto) 1.79 K/uL (1.20-3.40); Lymphocytes % (auto) 40.1 %; Monocytes # (auto) 1.48 K/uL (0.11-0.59); Monocytes % (auto) 33.2 %; Neutrophils # (auto) 1.17 K/uL (1.40-6.50); Neutrophils % (auto) 26.3 %; Platelet Count 44 K/uL (130-400); Platelet Estimate Decreased (Normal)
--- NOTE | 2024-05-15 11:58 | History & Physical Report ---
Date of Service May 15, 2024 Assessment & Plan (1) Syncope: (2) New onset atrial fibrillation: (3) Fall: (4) HTN (hypertension): (5) Bladder cancer: (6) Dyslipidemia: (7) CAD (coronary artery disease): (8) History of SC (myocardial infarction): Plan This is an 88 y/o male with history of CAD s/p CABG, prior SC, endovascular AAA repair, AAA endoleak repair, HTN, dyslipidemia, prior adenoCA of lung s/p XRT, recurrent bladder CA being treated in [place], chronic thrombocytopenia, CKD3, polyneuropathy, and other history as outlined below who presented to the ED today after a syncopal event at home. Work-up in the ED revealed atrial fibrillation - pt denies prior history of this and this diagnosis was not seen in review of his outpatient [facility] records. #New-onset atrial fibrillation #Syncope - vasovagal vs. due to arrhythmia #Fall Admit to PCU Change atenolol to metoprolol tartrate 25 mg po Q6 hours ECHO, consult cardiology Fall precautions, PT/OT evaluations Will need to further discuss risks vs. benefits of anticoagulation - with his thrombocytopenia and current bladder cancer, he is at increased risk of bleeding such as hematuria. Discussed patient with outpatient stock holder/oncologist (Dr. Allison) who is also concerned about potential bleeding risk. Will discuss with cardiology provider as well. Holding off on anticoagulation for now. #Thrombocytopenia - chronic since 2004 but dropping count more recently Repeat CBC in the AM Continue to follow with hem/onc as outpatient #Recurrent bladder cancer Currently undergoing treatment with urology at [facility] [place] #Dyslipidemia Continue statin #CKD3 Creatinine appears to be at baseline Repeat BMP in the AM Pt seen and reviewed with collaborating physician, Dr. Garsia. Plan of care discussed and as outlined above. Code status: Full code DVT prophylaxis: Darryn Jerome PA-C History of Present Illness Chief Complaint: syncope Primary Care Provider: Javon Scales, This is an 88 y/o male with history of CAD s/p CABG, prior SC, endovascular AAA repair, AAA endoleak repair, HTN, dyslipidemia, prior adenoCA of lung s/p XRT, recurrent bladder CA being treated in [place], chronic thrombocytopenia, CKD3, polyneuropathy, and other history as outlined below who presented to the ED today after a syncopal event at home. Pt reports that he went to the bathroom this morning and after urinating, he felt like he needed to have a BM and then fell abruptly, hitting his head on the toilet. He is unsure if he lost consciousness but he does remember his coming into the bathroom almost immediately after he fell so states that if he did pass out, it couldn't have been for more than few seconds. He denies preceding symptoms to the event including no chest pain, nausea, palpitations, dizziness, or sensation of warmth. He denies prior syncopal events. Work-up in the ED revealed new-onset atrial fibrillation. Neither patient or his family recall him being diagnosed with this previously. He does follow with cardiology for CAD s/p CABG. He has a history of recurrent bladder cancer follows with urology at [facility] [place]. Multiple TURBT and completed six treatments with intravesical BCG, last in November 2019. He notes recently starting another treatment for bladder cancer, and he has noted some nausea related to this. 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 Allison. Chronic thrombocytopenia since 2004, recently worsened with counts of 60-100K. 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 ECHO 03/29/19 moderately increased LV wall thickness with normal wall motion; discrete apical infarct w/ apical septum and inferior wall akinetic; regional LV wall motion o/w normal. LVEF 50-54%, grade I LV diastolic dysfunction; mildly calcified aortic valve; mild secondary MR, mild TR Allergies Allergy/AdvReac Type Severity Reaction Status Date / Time atorvastatin Allergy Unknown "TIGHTENS Verified 01/15/20 23:34 UP MY LIVER" simvastatin Allergy Unknown "TIGHTEN Verified 01/15/20 23:34 UP MY LIVER" tamsulosin Allergy Unknown UNKNOWN Verified 01/15/20 23:34 ciprofloxacin [From Cipro] AdvReac Severe abdominal/ Unverified 01/15/20 23:34 stomach pain lisinopril AdvReac Mild RASH Unverified 01/15/20 23:34 Home Medications Medication Instructions Recorded Confirmed Type amlodipine 2.5 mg tablet 2.5 mg PO DAILY 10/09/18 05/15/24 History aspirin 81 mg tablet,delayed 81 mg PO QAM 10/09/18 05/15/24 History release (Rober Low Dose Aspirin) atenolol 25 mg tablet 25 mg PO BID 10/09/18 05/15/24 History cholecalciferol (vitamin D3) 25 1,000 unit PO DAILY 10/09/18 05/15/24 History mcg (1,000 unit) capsule (Vitamin D3) coenzyme Q10 50 mg tablet 50 mg PO DAILY 10/09/18 05/15/24 History fluticasone furoate 27.5 1 spray intranasal DIRECTED PRN 10/09/18 05/15/24 History mcg/actuation nasal congestion spray,suspension (Flonase Sensimist) nitroglycerin 0.3 mg sublingual 0.3 mg sublingual DIRECTED 10/09/18 05/15/24 History tablet (Nitrostat) polyethylene glycol 3350 17 gram 17 g PO DAILY PRN Constipation 10/09/18 05/15/24 History oral powder packet pravastatin 20 mg tablet 20 mg PO HS 10/09/18 05/15/24 History pyridoxine (vitamin B6) 100 mg 200 mg PO 3XWK 10/09/18 05/15/24 History tablet amoxicillin 500 mg tablet 2,000 mg PO ONCE PRN 1 hr prior to 01/15/20 05/15/24 History dental procedure oxycodone 5 mg tablet 5 mg PO Q6H PRN Severe Pain (Scale 01/15/20 05/15/24 History Score 7-10) Bedias Oil 1 cap PO DAILY 05/15/24 05/15/24 History silodosin 4 mg capsule 4 mg PO DAILY 05/15/24 05/15/24 History Past Med/Surg History Problem List (Updated 05/15/24 @ 14:14 by Todd Rodriguez) Dyslipidemia, goal LDL below 70 ASCVD (arteriosclerotic cardiovascular disease) Fall New onset atrial fibrillation Syncope Dyslipidemia Bladder cancer (Acute) HTN (hypertension) (Acute) Medical History History of SC (myocardial infarction) CAD (coronary artery disease) AAA (abdominal aortic aneurysm) Chronic ITP (idiopathic thrombocytopenia) Macular degeneration RORY inhibitor intolerance Basal cell carcinoma of skin Benign prostatic hyperplasia with urinary retention Polyneuropathy in other diseases classified elsewhere Iliac aneurysm CKD (chronic kidney disease) stage 3, GFR 30-59 ml/min Adenocarcinoma, lung Lipoma HLD (hyperlipidemia) Bladder cancer Surgical History Hx of CABG History of tonsillectomy History of repair of aneurysm of abdominal aorta using endovascular stent graft S/P cystoscopy Multiple History of bladder surgery Family History Other Diabetes Heart disease Hypertension Stroke Social History Smoking Status: Former smoker Tobacco Type: Cigarettes Hx Alcohol Use: No Hx Substance Use: No Preferred Language: Kinyarwanda Communication Ability: Effective Biologist Aide Required: No Beliefs That Will Affect Care: None Current Living Situation: Spouse Feels Safe at Home: Yes Assistive Devices: None Review of Systems Review of Systems: All systems reviewed & are unremarkable except as noted in Subjective Physical Exam Physical Exam: Please see the physician note for details of the physical examination. Results & Data Results & Data Vital Signs (Past 12 Hours) Vital Signs Temp Pulse Pulse Resp BP BP Pulse Ox 05/15/24 10:22 69 05/15/24 10:03 36.5 C 78 20 151/69 H 98 05/15/24 09:37 36.8 C 83 20 119/69 98 O2 Del Method 05/15/24 10:22 05/15/24 10:03 Room Air 05/15/24 09:37 Room Air Laboratory Results Lab Results 05/15/24 Range/Units 09:55 WBC 4.46 L (4.8-10.8) K/ul RBC 4.31 L (4.70-6.10) M/uL Hgb 13.6 L (14.0-18.0) g/dl Hct 40.1 L (42.0-52.0) % MCV 93.0 (80.0-100.0) fL MCH 31.6 (25.0-34.0) pg MCHC 33.9 (32.0-36.0) g/dL RDW Std Deviation 52.2 H (36.4-46.3) fL RDW Coeff of Kriss 15.3 H (11.5-14.5) % Plt Count 44 L (130-400) K/uL Immature Gran % (Auto) 0.4 % Neut % (Auto) 26.3 % Lymph % (Auto) 40.1 % [place] % (Auto) 33.2 % Eos % (Auto) 0.0 % Baso % (Auto) 0.0 % Neut # (Auto) 1.17 L (1.40-6.50) K/uL Lymph # (Auto) 1.79 (1.20-3.40) K/uL [place] # (Auto) 1.48 H (0.11-0.59) K/uL Eos # (Auto) 0.00 (0.00-0.50) K/uL Baso # (Auto) 0.00 (0.00-0.20) K/uL Immature Gran # (Auto) 0.02 (0.01-0.20) K/uL Platelet Estimate Decreased L (Normal) Giant Platelets 1+ Sodium 139 (136-145) mmol/L Potassium 3.5 (3.5-5.1) mmol/L Chloride 105 (98-107) mmol/L Carbon Dioxide 28 (21-32) mmol/L Anion Gap 6 (3-11) BUN 37 H (6-23) mg/dl Creatinine 0.91 (0.6-1.4) mg/dl Est Cr Clr Drug Dosing 46.2 ml/min eGFR 80.56 BUN/Creatinine Ratio 40.7 H (10-20) Glucose 105 H (70-99(Fasting)) mg/dl Calcium 8.4 L (8.6-10.3) mg/dl Magnesium 1.9 (1.7-2.4) mg/dl Total Bilirubin 1.3 H (0.2-1.0) mg/dl Direct Bilirubin 0.2 (0-0.2) mg/dl AST 15 (13-39) U/L ALT 11 (7-52) U/L Alkaline Phosphatase 57 (34-104) U/L Troponin I High Sens 12.0 (0-20) pg/ml Total Protein 5.8 L (6.0-8.3) gm/dl Albumin 3.6 (3.4-5.0) gm/dl TSH 2.091 (0.300-4.500) uIu/ml Diagnostic Findings Cervical Spine CT 05/15/24 09:57 CT cervical spine wo con CT DOSE: 1150.95 mGy.cm CLINICAL HISTORY: 88 years-old Male with trauma. Acute head trauma status post fall COMPARISON: CT head of same day, chest radiograph of same day, PET/CT 02/13/2029. TECHNIQUE: Multiple axial CT images of the cervical spine were obtained without contrast. A dose lowering technique was utilized adhering to the principles of ALARA. FINDINGS: Multilevel moderate to severe intervertebral disc space narrowing with moderate bridging osteophytosis and moderate to severe facet arthrosis. There is severe degeneration at C1-C2. No acute cervical spine fracture or subluxation. Dextroscoliosis of the cervicothoracic junction. The cervical soft tissues appear unremarkable. No pneumothorax. Partially imaged ill-defined subsolid nodular foci of the lung apices. Foci within the left lung apex measuring up to 1.7 cm. IMPRESSION: 1. No acute cervical spine fracture or subluxation. 2. Partially imaged nodular foci at the lung apices suspicious for adenomatous lesions. Correlation with follow-up nonemergent chest CT recommended. ACT 112: Positive. There are findings on this exam that require communication between the performing entity and the patient following Patient Test Result Info rmation Act ([place] Act 112) guidelines. The above report was generated using voice recognition software. It may contain grammatical, syntax or spelling errors. Electronically signed by: Felton Jolley M.D. 05/15/2024 11:04 AM Chest X-Ray 05/15/24 09:57 XR chest 1V portable HISTORY: 88 years-old Male syncope COMPARISON: CT cervical spine of same day, chest radiograph 01/15/2020, PET CT 02/13/2009 TECHNIQUE: AP view the chest FINDINGS: Cardiac silhouette is enlarged. Median sternotomy with CABG. Ill-defined biapical nodular opacities, right greater than left. Foci measure up to 4.7 cm on the right and 3 cm on the left. Mild pulmonary emphysema. No pneumothorax, pleural effusion or overt pulmonary edema. Degenerative changes of the shoulders and spine. Atherosclerosis of the aorta. Pulmonary emphysema. IMPRESSION: 1. Cardiomegaly without acute process. 2. Prior median sternotomy and CABG. 3. Emphysema with biapical nodular opacities again noted which have progressed from the 02/13/2009 PET/CT. Correlation with nonemergent follow-up CT chest recommended. ACT 112: Positive. There are findings on this exam that require communication between the performing entity and the patient following Patient Test Result Information Act [place] Act 112) guidelines. The above report was generated using voice recognition software. It may contain grammatical, syntax or spelling errors. Electronically signed by: Felton Jolley M.D. 05/15/2024 10:[address] 05/15/24 09:57 CT head/brain wo con CLINICAL HISTORY: trauma/syncope Technique: Contiguous axial CT images of the head were acquired from the base of the skull to the vertex without intravenous contrast administration. Images were viewed in brain, subdural and bone windows. Automated dose lowering techniques and/or adjustment according to patient size were utilized for this exam. Comparison: None available at the time of this dictation. Findings: Areas of decreased attenuation are present in the periventricular and subcortical white matter bilaterally consistent with small vessel ischemic disease. Generalized cerebral atrophy with commensurate enlargement of the ventricles, sulci, and cisterns is also present. There is no acute intracranial hemorrhage or evidence of acute territorial infarction. No shift of the midline structures, mass effect, or extra-axial abnormalities are shown. Atherosclerotic calcifications are present in the intracranial segments of the internal carotid arteries. Imaged portions of the paranasal sinuses and mastoid air cells are clear. The orbits appear normal. There are no acute fractures of the calvaria or scalp swelling. Impression: No acute intracranial hemorrhage, no evidence of acute territorial infarction or other acute intracranial disease process. ACT 112: Negative or not required by law. Electronically signed by: Irvin Hernandez M.D. 05/15/2024 10:36 AM Supervising Physician Co-Signing Physician Notes 88-year-old male with PMH of CAD status post CABG, prior SC, endovascular AAA repair, AAA endoleak repair, HTN, HLD, adeno Ca of lung s/p XRT, recurrent bladder cancer under treatment at [place], chronic thrombocytopenia/Chronic ITP (per OP hem once note), CKD 3, polyneuropathy presented to the ED 05/15 after syncopal event at home. Patient reports he was at bathroom when he fell, he had passed urine and felt like is going to need to move bowel and was getting ready for BM and he "just went limp" and fell. Patient denies any nausea/warmth/dry heaves/sweating/palpitation/dizziness/weak legs prior to fall. He denies any abnormal/involuntary activity of the limbs/incontinence of bowel and bladder and reports may be transient loss of consciousness after fall. He hit his head on the right side on commode. Patient denies fever/sore throat/cough/chest pain/other review of symptoms. Pt is undergoing intravesical therapy at [place] for his bladder cancer, last Rx on last . Afib, new onset Syncope, vasovagal vs arrythmia Fall Pt came in w/ syncope, noted to have afib, has TSH wnl. EKG w/ afib in rate 80 will hold atenolol, start meto tart PO at 25 mg q6h. trend trop x 1. get ECHO, c/w tele monitor. cardio consult H/o adeno Ca lung: CXR w/ biapical nodular opacities again noted which have progressed from the 02/13/2009 PET/CT. Pt and his family was made aware, they stated they have a plan to f/u w/ dr allison w/ ct chest in coming weeks. f/u on it after discharge. On exam: GENERAL: Alert and oriented x3. NAD, on RA. appears old/frail. HEENT: No pallor, no icterus. Pupils equal, round and reactive to light. Oral mucosa moist. rt forehead abrasion, w/ clean dressing. NECK: No JVD, no neck masses. HEART: S1 and S2 heard. irregular rate and rhythm. No murmur, no gallop. RESPIRATORY SYSTEM: Normal AP diameter. No accessory muscle use. No wheezing, no crackles. ABDOMEN: Soft, bowel sounds present, nontender, no distention. CENTRAL NERVOUS SYSTEM: No facial droop. Speech is clear. Obeys simple commands. Moves extremities. EXTREMITIES: No edema, no erythema seen. I have seen and examined the patient and have discussed the case with the provider above. I agree with the assessment and plan as stated. Time spent: 30 min. (1) Syncope Syncope type: unspecified Qualified Code(s): R55 - Syncope and collapse (3) Fall Encounter type: initial encounter Qualified Code(s): W19.XXXA - Unspecified fall, initial encounter (4) HTN (hypertension) Hypertension type: essential hypertension Qualified Code(s): I10 - Essential (primary) hypertension (5) Bladder cancer Bladder location: unspecified site Qualified Code(s): C67.9 - Malignant neoplasm of bladder, unspecified (7) CAD (coronary artery disease) Associated angina: without angina Coronary Disease-Associated Artery/Lesion type: [place] artery Elem vs. transplanted heart: [place] heart Qualified Code(s): I25.10 - Atherosclerotic heart disease of [place] coronary artery without angina pectoris
[2024-05-15 12:05] LABS: Appearance Urine Clear (Clear); Bilirubin Urine Negative (Negative); Blood Urine Trace-intact (Negative); Color Urine Yellow; Glucose Urine UA Negative (Negative); Ketones Urine Negative (Negative); Leukocyte Esterase Urine Negative (Negative); Nitrite Urine Negative (Negative); Protein Urine 1+ (Negative); Specific Gravity Urine 1.025 (1.000-1.030); Urobilinogen Urine Negative (Negative)
[2024-05-15] MEDS: MAGNESIUM SULFATE / D5W 1 GM/100 ML BAG IV ONE (12:34)
[2024-05-15 12:47] LABS: Bacteria Urine 1+ (None Seen)
--- NOTE | 2024-05-15 13:59 | Cardiology Consultation ---
Date of Consultation May 15, 2024 Assessment & Plan (1) Syncope: (2) New onset atrial fibrillation: (3) ASCVD (arteriosclerotic cardiovascular disease): (4) Dyslipidemia: (5) Dyslipidemia, goal LDL below 70: (6) Bladder cancer: (7) Thrombocytopenia: Plan Syncopal episode. Suspect vasovagal etiology. General measures advised. Recommend telemetry monitoring; outpatient ambulatory EKG if inpatient benign. New onset atrial fibrillation with a controlled ventricular response. Duration unknown. Patient seemingly asymptomatic. Recommend rate control with beta- bess therapy. Telemetry/Zio monitoring as above. [id number] Score 5 points. Patient admitted following syncopal episode with resultant head trauma, chronically with ambulatory dysfunction (recently started using a cane), marked thrombocytopenia, and recurrent bladder cancer. Risks of anticoagulation appear greater than the benefit; patient and family in agreement. With an inability to take anticoagulation and/or dual antiplatelet therapy would not recommend referral for Watchman implantation consideration at this point. ASCVD. History of anterior wall OH. Status post remote CABG in November 1997. Continue medical management. Borderline potassium. Supplement orally. Supervising Physician Co-Signing Physician Notes Attending physician attestation: Case reviewed with the advanced practitioner. I have personally performed a history and physical examination on the patient. I have reviewed the advanced practitioner's documentation on the date of service referenced in note, and I agree with, and take responsibility for the plan of care. Pérez Snyder, DO History of Present Illness Reason for Consultation: New onset atrial fibrillation Requesting Physician: [facility], Rafaela Jerome Attending Physician: [facility] History of Present Illness Cedric Sam is a very pleasant 88-year-old male who presented to the [facility] ER on May 15, 2024 after experiencing a syncopal at home, unwitnessed, in the bathroom. Patient followed by [facility], recurrent bladder cancer. 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 Prescribed adstiladrin. + Bladder spasms. Also constipated, attributed to oxycodone for chronic back pain. This morning just before 6 the patient awoke to go to the bathroom. After urinating he felt as though he needed to have a bowel movement. All of a sudden he found himself on the floor, falling and striking his right temporal on the commode. EKG on presentation revealed new onset atrial fibrillation with a ventricular rate of 80 bp with left axis deviation, old inferior and anterolateral infarcts. QTc 422 ms. High-sensitivity troponin negative at 12.0 pg/mL. Potassium borderline low at 3.5 mmol/L. Magnesium 1.9 mg/dL. TSH was normal at 2.091. Platelet count notably 44K. Chest x-ray without acute process. No palpitations. No chest pain. No unusual shortness of breath. No significant peripheral edema. Past Medical and Surgical History: ASCVD History of OH, prior anterior septal infarct Status post CABG in November 1997, CABG x 3, grafts are known Ischemic cardiomyopathy, LVEF previously 45% Abdominal aortic aneurysm status post endovascular repair, endoleak repair Hypertension Dyslipidemia statin intolerance Asymptomatic premature atrial contractions Right upper lobe lung cancer, adenocarcinoma, status post radiation therapy Recurrent bladder cancer Chronic thrombocytopenia, ITP Stage III chronic kidney disease Polyneuropathy Family History: Noncontributory. Mother with breast cancer. Father with abdominal aortic aneurysm Social History: Former smoker having quit in November 1997, [id number] history. No significant alcohol. to [place]. Five children. Retired. Allergies Allergy/AdvReac Type Severity Reaction Status Date / Time atorvastatin Allergy Unknown "TIGHTENS Verified 01/15/20 23:34 UP MY LIVER" simvastatin Allergy Unknown "TIGHTEN Verified 01/15/20 23:34 UP MY LIVER" tamsulosin Allergy Unknown UNKNOWN Verified 01/15/20 23:34 ciprofloxacin [From Cipro] AdvReac Severe abdominal/ Unverified 01/15/20 23:34 stomach pain lisinopril AdvReac Mild RASH Unverified 01/15/20 23:34 Home Medications Medication Instructions Recorded Confirmed Type amlodipine 2.5 mg tablet 2.5 mg PO DAILY 10/09/18 05/15/24 History aspirin 81 mg tablet,delayed 81 mg PO QAM 10/09/18 05/15/24 History release (Rober Low Dose Aspirin) atenolol 25 mg tablet 25 mg PO BID 10/09/18 05/15/24 History cholecalciferol (vitamin D3) 25 1,000 unit PO DAILY 10/09/18 05/15/24 History mcg (1,000 unit) capsule (Vitamin D3) coenzyme Q10 50 mg tablet 50 mg PO DAILY 10/09/18 05/15/24 History fluticasone furoate 27.5 1 spray intranasal DIRECTED PRN 10/09/18 05/15/24 History mcg/actuation nasal congestion spray,suspension (Flonase Sensimist) nitroglycerin 0.3 mg sublingual 0.3 mg sublingual DIRECTED 10/09/18 05/15/24 History tablet (Nitrostat) polyethylene glycol 3350 17 gram 17 g PO DAILY PRN Constipation 10/09/18 05/15/24 History oral powder packet pravastatin 20 mg tablet 20 mg PO HS 10/09/18 05/15/24 History pyridoxine (vitamin B6) 100 mg 200 mg PO 3XWK 10/09/18 05/15/24 History tablet amoxicillin 500 mg tablet 2,000 mg PO ONCE PRN 1 hr prior to 01/15/20 05/15/24 History dental procedure oxycodone 5 mg tablet 5 mg PO Q6H PRN Severe Pain (Scale 01/15/20 05/15/24 History Score 7-10) [place] Oil 1 cap PO DAILY 05/15/24 05/15/24 History silodosin 4 mg capsule 4 mg PO DAILY 05/15/24 05/15/24 History Patient History Medical History History of OH (myocardial infarction) CAD (coronary artery disease) AAA (abdominal aortic aneurysm) Chronic ITP (idiopathic thrombocytopenia) Macular degeneration RORY inhibitor intolerance Basal cell carcinoma of skin Benign prostatic hyperplasia with urinary retention Polyneuropathy in other diseases classified elsewhere Iliac aneurysm CKD (chronic kidney disease) stage 3, GFR 30-59 ml/min Adenocarcinoma, lung Lipoma HLD (hyperlipidemia) Bladder cancer Surgical History Hx of CABG History of tonsillectomy History of repair of aneurysm of abdominal aorta using endovascular stent graft S/P cystoscopy Multiple History of bladder surgery Family History Other Diabetes Heart disease Hypertension Stroke Social History Smoking Status: Former smoker Tobacco Type: Cigarettes Hx Alcohol Use: No Hx Substance Use: No Preferred Language: Icelandic Communication Ability: Effective 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 Physical Exam Physical Exam: General: Younger than physiological age. Alert and oriented x 3. No acute distress. HENT: Dressing covering right temporal area. Eyes: PER. Conjunctiva pink, sclera clear. Neck: Bilateral carotid bruits. No JVD. Heart: Irregularly irregular 84 bpm. Systolic murmur. No rub. Lungs: Decreased. Diminished. No wheeze. No rales. Abdomen: +BS. Soft. Nontender. No masses or organomegaly. Extremities: Trivial edema. No clubbing. No cyanosis. Limited neurological examination is without focal deficits. Pulses: radial=2/4, posterior tibial=1/4. Results & Data Vital Signs (Past 12 Hours) Vital Signs Temp Pulse Pulse Resp BP BP Pulse Ox 05/15/24 12:46 77 22 129/76 98 05/15/24 10:22 69 05/15/24 10:03 36.5 C 78 20 151/69 H 98 05/15/24 09:37 36.8 C 83 20 119/69 98 O2 Del Method 05/15/24 12:46 Room Air 05/15/24 10:22 05/15/24 10:03 Room Air 05/15/24 09:37 Room Air Laboratory Results Cardiac Enzymes 05/15/24 Range/Units 09:55 AST 15 (13-39) U/L Troponin I High Sens 12.0 (0-20) pg/ml CBC 05/15/24 Range/Units 09:55 WBC 4.46 L (4.8-10.8) K/ul RBC 4.31 L (4.70-6.10) M/uL Hgb 13.6 L (14.0-18.0) g/dl Hct 40.1 L (42.0-52.0) % Plt Count 44 L (130-400) K/uL Neut # (Auto) 1.17 L (1.40-6.50) K/uL Lymph # (Auto) 1.79 (1.20-3.40) K/uL Mcdowell # (Auto) 1.48 H (0.11-0.59) K/uL Eos # (Auto) 0.00 (0.00-0.50) K/uL Baso # (Auto) 0.00 (0.00-0.20) K/uL Comprehensive Metabolic Panel 05/15/24 Range/Units 09:55 Sodium 139 (136-145) mmol/L Potassium 3.5 (3.5-5.1) mmol/L Chloride 105 (98-107) mmol/L Carbon Dioxide 28 (21-32) mmol/L BUN 37 H (6-23) mg/dl Creatinine 0.91 (0.6-1.4) mg/dl Glucose 105 H (70-99(Fasting)) mg/dl Calcium 8.4 L (8.6-10.3) mg/dl Direct Bilirubin 0.2 (0-0.2) mg/dl AST 15 (13-39) U/L ALT 11 (7-52) U/L Alkaline Phosphatase 57 (34-104) U/L Total Protein 5.8 L (6.0-8.3) gm/dl Albumin 3.6 (3.4-5.0) gm/dl Intake and Output 05/14/24 05/15/24 05/15/24 22:59 06:59 14:59 Other: Weight 59.3 kg Patient Weight 05/16/24 06:59 Weight 59.3 kg Diagnostic Findings ER telemetry: Atrial fibrillation, rate controlled. + Artifact. No significant bradycardia or pauses. (1) Syncope Syncope type: unspecified Qualified Code(s): R55 - Syncope and collapse (6) Bladder cancer Bladder location: unspecified site Qualified Code(s): C67.9 - Malignant neoplasm of bladder, unspecified
[2024-05-15] MEDS: METOPROLOL TARTRATE 25 MG TAB PO SCH (15:11)
[2024-05-15] MEDS: POTASSIUM CHLORIDE 10 MEQ TABCR PO ONE (15:11)
[2024-05-15] MEDS ORDERED: POLYETHYLENE (MIRALAX) 17 GM PACK PO PRN (17:30)
--- OUTSIDE RECORDS SUMMARY | 2024-05-15 18:51 | External Medical Summary | Summary of Care ---
Author Name Unknown Organization [facility] Address [address] [place] [address] Phone [phone] Care Team Providers Care Harness Cleaner Name Role Phone Javon Scales Primary Care Provider [phone] Reason for Visit * Reason Onset Date Comments Medication Management 05/10/2024 Encounter Details Date Type Department Care Team (Late st Contact Info) Description 05/10/2024 Telephone Urology, [place] [address] [place] [address] Jose Lisa MD [address] [place] [address] Medication Management Allergies Active Allergy Reactions Criticality Noted Date Comments Ciprofloxacin Nausea/vomiting Low 09/27/2018 Stomach upset Finasteride Other (Please comment) Low 09/21/2023 Enlarged breast tissue Tamsulosin Hcl Other (Please comment) Medium 0 collapse Levofloxacin Other (Please comment) Low 03/05/2017 Hx of achilles tendon tear Atorvastatin Abdominal pain Low 12/23/2015 Lisinopril Other (Please comment) Medium 03/11/2007 Caused pt to have blurred vision and become very flushed Simvastatin Abdominal pain Low 12/23/2015 documented as of this encounter (statuses as of 05/10/2024) Medications CO Q 10 10 MG PO CAPS Active VITAMIN B-6 100 MG PO TABS 200mg three times per week 0 8 Active OMEGA 3 1000 MG PO CAPS 1200 mg daily Active TUMS 500 MG PO CHEW Take by mouth. Activ e VITAMIN D3 1000 UNITS PO CAPS Take by mouth daily. 4 Active fluticasone (FLONASE) 50 MCG/ACT nasal sprayIndications: Bronchitis Administer 2 Sprays into each nostril daily. 1 Bottle 5 6 Active Docusate Sodium 100 MG Oral Capsule One pill by mouth twice a day as needed 60 Cap 11 8 Active Multiple Vitamins-Minerals (MULTIVITAMIN ADULT EXTRA C) CHEW 1 Tablet in the morning. 9 Active senna-docusate (SENOKOT S) 8.6-50 MG per tabletIndications :Drug induced constipation,Plant Propagator shawn bilateral low back pain with bilateral sciatica Take 1 Tab by mouth 2 times a day as needed for Constipation. 1 Tab 9 Active clotrimazole-beta methasone (LOTRISONE) 1-0.05 % cream APPLY TOPICALLY TO RIGHT LEG AREA TWICE DAILY 135 g 5 0 Active Additional Information Patient not taking.Informant: Patient, Reported on 03/13/2024 Triamcinolone Acetonide 0.1 % External Lotion (Aristocort) Apply to affected area at groin twice daily as needed 60 mL 2 1 Active PreserVision AREDS 2+Multi Vit Oral Capsule Take by mouth 1 Capsule daily . Active Saline Nasal [place] 0.65 % Nasal Solution ([place])Indication s:Epistaxis Administer into nostril 2 Sprays in the morning AND 2 Sprays before bedtime. 30 mL 12 2 Active Nitroglycerin 0.4 MG Sublingual Tablet Sublingual (Nitrostat)Indica tions:Atheroscler osis of [place] coronary artery of [place] heart without angina pectoris one tab under tongue as needed for chest pain maximum 3 doses 25 Tablet 5 2 Active Pravastatin Sodium 20 MG Oral Tablet (Pravachol)Indica tions:Dyslipidemi a, goal LDL below 100 TAKE 1 TABLET BY MOUTH ONCE DAILY AT BEDTIME 100 Tablet 3 3 Active Ketoconazole 2 % External Shampoo (Nizoral)Indicati ons:Scalp pruritus USE SHAMPOO AT LEAST 3 TIMES PER WEEK, LATHER, WAIT 5 MINUTES THEN RINSE 120 mL 3 Active Fluocinonide 0.05 % External SolutionIndicatio ns:Scalp pruritus APPLY SOLUTION TOPICALLY TO AFFECTED AREA OF SCALP NIGHTLY NEEDED FOR ITCHING 60 mL 3 Active Silodosin 4 MG Oral Capsule (Rapaflo) Take 1 Tablet by mouth in the morning. 90 Capsule 3 4 Active Amoxicillin 500 MG Oral Capsule (Amoxil) TAKE FOUR CAPSULES BY MOUTH ONE HOUR BEFORE APPOINTMENT 4 Capsule 4 Active amLODIPine Besylate 2.5 MG Oral Tablet (Norvasc)Indicati ons:HTN, goal below 140/90 TAKE 1 TABLET BY MOUTH IN THE MORNING 100 Tablet 1 4 Active Atenolol 25 MG Oral Tablet (Tenormin)Indicat ions:HTN, goal below 140/90,Atheroscle rosis of [place] coronary artery of [place] heart without angina pectoris Take 1 tablet by mouth twice daily 200 Tablet 1 4 Active Psyllium 58.6 % Oral Packet (Metamucil) Take 1 Packet by mouth in the morning. 4 Active Preparation H 0.25-14-74.9 % Rectal Ointment (Preparation H) Administer into the rectum 4 times a day as needed (Hemorrhoids). 4 Active Polyethylene Glycol 3350 17 GM/SCOOP Oral Powder (MiraLax)Indicati ons:Chronic constipation,Hemo rrhoids, external without complications Take 17 g by mouth in the morning and 17 g before bedtime. Take 1 capful daily in the morning.. 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 120 Tablet 4 Active oxyBUTYnin Chloride ER 10 MG Oral Tablet Extended Release 24 Hour (Ditropan XL) Take first tablet the day before and second tablet the day of bladder treatment 2 Tablet 4 Active Hospital, Clinic, or Other Facility Administered Medication Ordered Dose Route Frequency Start Date End Date Status Nadofaragene Firadenovec-vncg (Adstiladrin) intravesical instillation 75 mLIndications:Malignant neoplasm of overlapping sites of bladder (HCC) 75 mL IS ONCE 05/11/2024 05/11/2024 Ac tive documented as of this encounter (statuses as of 05/10/2024) Active Problems Problem Noted Date Diagnosed Date Chronic constipation 04/06/2024 Controlled substance agreement signed 01/12/2023 Malignant neoplasm of overlapping sites of bladd er 07/13/2022 Abdominal aortic aneurysm without rupture 2022 H/O endovascular stent graft for abdominal aorti c aneurysm 07/29/2021 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 Chronic kidney disease, stage 3a 11/19/2020 Overview: Per CKD protocol Hypertensive kidney disease with stage 3a chronic kidney disease 10/15/2020 Overview: Per CKD protocol Polyneuropathy in other diseases classified else where 06/22/2019 Lumbar degenerative disc disease 06/22/2019 History of lung cancer 04/14/2019 Thrombocytopenia 07/25/2018 Lung nodules 05/09/2018 History of nonmelanoma skin cancer 08/02/2017 Overview (08/02/2017): BCC on the nasal dorsum 06/22, BCC left garcia 06/22, SCC right forearm 04/21, BCC right posterior ear, BCC right ear crease 06/21, BCC upper back 06/20 and BCC left post-auricular ear 10/06 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 HTN, GOAL BELOW 140/90 04/25/2009 Overview (04/25/2009): Modified per HTN protocol #16. Old myocardial infarct 12/12/2007 Overview (12/12/2007): Anterior inferior RORY inhibitor intolerance 08/11/2007 Overview (08/11/2007): Visual disturbance Macular degeneration 11/19/2006 Overview (11/19/2006): Dr hein 11/17/2006 Hemangioma of other sites 05/04/2003 Overview (05/04/2003): liver- seen on U/s 2002- stable/asymptomatic 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 CORONARY ATHEROSCLEROSIS OF UNSPECIFIED TYPE OF VESSEL, [place] OR GRAFT History of bladder cancer documented as of this encounter (statuses as of 05/10/2024) Resolved Problems Problem Noted Date Diagnosed Date Resolved Date Hypertensive kidney disease, stage III 06/05/2020 10/17/2020 Overview: Per CKD protocol Malignant tumor of urinary bladder 09/27/2018 03/02/2024 Abnormal platelets 04/22/2018 9 Endoleak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 repair, initial encounter 03/30/2017 04/22/2018 AAA (abdominal aortic aneury sm) without rupture 02/22/2017 01/12/2023 History of basal cell carcinoma 03/07/2015 08/02/2017 Iliac artery aneurysm, 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 Special screening for malign ant neoplasms, colon 08/06/2005 12/30/2016 Overview (11/06/2005): Colonoscopy 07/13: Impression: - One benign appearing 6 mm polyp in the rectum. Resected and retrieved. - One 2 mm polyp in the proximal ascending colon. Resected and retrieved. - Diverticulosis. - Internal, non bleeding, medium hemorrhoids were found. - The exam was otherwise normal to the cecum. Recommendation: - Use fiber, for example Citrucel, Fibercon, Konsyl or Metamucil - If the pathology report reveals adenomatous tissue, then repeat the colonoscopy for surveillance in 5 years.- path:tubular adenoma x 2 Benign localized hyperplasia of prostate without urinary obstruction and other lower urinary tract symptoms (LUTS) 06/12/2004 12/30/2016 Myalgia and myositis 05/04/2003 009 Aneurysm of artery 11/15/2002 7 Overview (09/22/2005): Repair R common iliac aneurysm with covered stent and embolization 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/10 [facility] 08/09:1 month s/p reintervention for his R common iliac artery stent graft for aneurysm.type I endoleak for common iliac aneurysm. 09/09 CT scan: No endoleak. Graft in good position. IMPRESSIONS: Stable endograft repair of iliac aneurysm after revision for Type I endoleak. Claudication-like sympotoms resolved, with normal arterial hemodynamics. PLAN: RTC [address] scan Encounter for long-term (cur rent) use of medications 11/15/2002 12/30/2016 Overview (03/30/2017): ICD-10 update of inactive term CHR ISCHEMIC HRT DIS NOS 09/05/2002 Malignant neoplasm of skin of parts of face 02/23/2001 08/02/2017 Overview (08/29/2015): ICD-10 update of inactive term Other seborrheic keratosis 02/23/2001 0 09/20/2008 HYPERLIPIDEMIA NEC-NOS 05/20 Overview (05/20/2009): Per Lipid Taxonomy. HYPERTENSION NOS 04/25/2009 Overview (04/25/2009): Modified per HTN protocol #16. Aneurysm of artery 04/16/200 9 Malignant neoplasm of skin 0 08/02/2017 Overview (09/10/2015): ICD-10 update of inactive term Aneurysm 09/20/2008 Overview (11/04/2006): Illiac artery documented as of this encounter (statuses as of 05/10/2024) Immunizations Name Administration Dates Next Due COVID-19 mRNA, LNP-s, No Pre serve, 2-Dose Series (Vizolution) 04/24/2021,09/06/2020,08/09/2020 COVID-19, MRNA-LNP, PF, 30 M CG/0.3 mL, 12 YRS AND ABOVE, IM (SetMeUp-ComirnatBaseTrace) 03/20/2024 Covid-19, Mrna, Lnp-s, Pf, B ivalent, 30 Mcg, IM, 12 yrs and above (Vizolution) 05/19/2022 H1N1 2009 Influenza, IM 05/28/2009 Influenza, Whole Virus 03/07/2007,03/18/2006 Pneumococcal Conjugate Vacc, 13 Valent (Prevnar) 10/16/2014 Pneumococcal Conjugate Vacci ne, 20-valent ([id number]) 04/21/2024 Pneumococcal Polysaccharide PPV23 (Pneumovax) 05/13/2006 RSV Vac., Recomb, Adjuvant, PF,0.5 Ml (Arexvy) 04/21/2024 Seasonal Influenza Vac., MDV , IM, 0.5 mL (Fluzone) 02/25/2015,02/22/2014,02/19/2013,02/22,03/03/2011,02/25/2010,02/07/2009 ,03/13/2008 Seasonal Influenza, High Dos e, Trivalent, PF, IM (Fluzone HD) 03/02/2024 Seasonal Influenza, PF, 6 M & above, IM , (FluLaval or Fluzone) 02/19/2021,02/09/2019,03/01/2018 Seasonal Influenza, Quadriva lent Hd (Fluzone Hd) 03/11/2023,02/23/2022 Seasonal Influenza, Quadriva lent Hd, 65+ Yrs 03/09/2020 Seasonal Influenza, Quadriva lent, No Preserve, IM 02/11/2017,02/17/2016 TD - Tetanus/Diptheria (ADULT) 08/11/2007 TDAP (age 10 and older)(Boostrix) 04/26/2023, Varicella Zoster Vaccine (Adult) 05/23/2007 Zoster Vaccine Recombinant (Shingrix) 08/16/2019 ,05/16/2019 documented as of this encounter Social History Tobacco Use Types Packs/Day Years Used Date Smoking Tobacco: Former Cigarettes 1 20 0 11/25/1977 - 11/25/1997 Passive Smoke Exposure: Past Smokeless Tobacco: Never Comments:quit smoking about 1997 Alcohol Use Standard Drinks/Week Comments Yes 0 (1 standard drink = 0.6 oz pur e alcohol) occassionally AUDIT-C Answer Date Recorded Q1: How often do you have a drink containing alc ohol? 2-3 times a week 01/29/2021 Q2: How many drinks containi ng alcohol do you have on a typical day when you are drinking? 1 or 2 01/29/2021 Q3: How often do you have si x or more drinks on one occasion? Not asked 01/29/2021 PHQ-2 Answer Date Recorded PHQ Adult Total Score 0 09/21/2023 Hunger Vital Sign Answer Date Recorded Within the past 12 months, y ou worried that your food would run out before you got the money to buy more. Never true 04/26/20 23 Within the past 12 months, t he food you bought just didn't last and you didn't have money to get more. Never true 04/26/2023 Childcare Answer Date Recorded Do you feel overwhelmed with taking care of a child, family member or friend? No 04/26/2023 Does your family need help f inding childcare? (Household - for ages 0-17 years) Not on file 04/26/2023 Clothing Answer Date Recorded Have you been unable to get clothing when it was really needed? No 04/26/2023 Is your family able to get c lothes or diapers when needed? (Household - for ages 0-17 years) Not on file 04/26/2023 Personal Safety Answer Date Recorded Do you feel unsafe or have concerns for your saf ety? No 04/26/2023 Do you have concerns for you r family's safety? (Household - for ages 0-17 years) Not on file 04/26/2023 Utilities Answer Date Recorded Do you have trouble paying y our heating, water, or electric bill? No 04/26/2023 Is your family able to pay t he heat, water, or electric bill? (Household - for ages 0-17 years) Not on file 04/26/2023 Does your family have access to good internet? (Household - for ages 0-17 years) Not on file 04/26/2023 Employment Status Answer Date Recorded Are you unemployed or without regular income? No 04/26/2023 Does the household have a re gular source of income? (Household - for ages 0-17 years) Not on file 04/26/2023 Social Connections Answer Date Recorded How often do you feel lonely or isolated from th ose around you? Never 04/26/2023 Financial Resource Strain Answer Date R ecorded Do you have any trouble payi ng for your medications, or do you think you might in the future? No 04/26/2023 Does your family have troubl e paying for medicine? (Household - for ages 0-17 years) Not on file 04/26/2023 Transportation Needs Answer Date Record ed READ ONLY Do you have troubl e getting a ride to medical visits or work? Never True 04/26/2023 Does your family have a hard time getting a ride to doctors visits? (Household - for ages 0-17 years) Not on file 04/26/2023 Has lack of transportation k ept you from medical appointments, meetings, work, or from getting things needed for daily living? Check all that apply. (Adult - for ages 18 years and over) Not on file 04/26/2023 Do you (or your family) have trouble finding or paying for a ride (transportation)? (Household - for ages 0-17 years) Not on file 04/26/2023 Housing Stability Answer Date Recorded Do you currently live in a s helter or have no steady place to sleep at night? No 04/26/2023 READ ONLY Do you think you a re at risk of becoming homeless? No 04/26/2023 Does your family worry about paying for your home or becoming homeless? (Household - for ages 0-17 years) Not on file 1 06/26/2022 Are you homeless or worried that you might be in the future? (Adult - for ages 18 years and over) Not on file 3 Are you (or your family) missael eless or worried that you might be in the future? (Household - for ages 0-17 years) Not on file Food Insecurity Answer Date Recorded Do you need food for this week? No 04/26/2023 Are you able to get enough f ood for your family? (Household - for ages 0-17 years) Not on file 04/26/2023 Does your family need food t his week? (Household - for ages 0-17 years) Not on file 04/26/2023 Do you always have enough fo od for your family? 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 Answer Date of Assessment Author No 03/29/2017 5:28 PM Mago Reeves RN * Are you blind or do you have serious difficulty seeing, even when wearing glasses? Answer Date of Assessment Author No 03/29/2017 5:28 PM Mago Reeves RN * Do you have serious difficulty walking or climbing stairs? (5 years old or older) Answer Date of Assessment Author No 03/29/2017 5:28 PM Mago Reeves RN * Do you have difficulty dressing or bathing? (5 years old or older) Answer Date of Assessment Author No 03/29/2017 5:28 PM Mago Reeves RN * Because of a physical, mental, or emotional condition, do you have difficulty doing errands alone such as visiting a doctors office or shopping? (15 years old or older) Answer Date of Assessment Author No 03/29/2017 5:28 PM EDT Mago Menezes RN documented as of this encounter Mental Status * Because of a physical, mental, or emotional condition, do you have serious difficulty concentrating, remembering, or making decisions? (5 years old or older) Answer Entry Date Author No 03/29/2017 5:28 PM [place] Mago Menezes RN documented in this encounter Miscellaneous Notes * Telephone Encounter - Ashley Gudino RN - 05/10/2024 12:32 PM EST Contracted patient to review medication administration timing for Oxybutynin. Patient states he didnot get the message this morning. Reviewed the rationale for taking the medication. He states he will pick this up as soon as he can and take the first dose today. He will take the second dose tomorrow one hour prior to his appointment time. Answered questions to his satisfaction. Patient is aware to notify [facility] if he needs to cancel his appointment. Ashley Gudino RN, MSN 05/10/2024 12:35 PM * Telephone Encounter - Ashley Gudino RN - 05/10/2024 8:18 AM EST Attempted to contact patient to instruct him to take the first dose of Oxybutynin this morning and second dose tomorrow morning. Medication was sent to patient pharmacy in [place]. Left messagefor patient to call if having questions. MARK Mendoza 05/10/2024 8:19 AM documented in this encounter Plan of Treatment Upcoming Encounters Date Type Department Care Team (Late st Contact Info) Description 05/11/2024 11:00 AM EST Nurse Only [facility] [place] [address] [facility] [place] [address] [place], [facility] U[facility] [address] [facility] [address] 07/25/2024 12:30 PM EST Imaging Radiology [address], [place] [address] [facility] [place] [address] 07/28/2024 1:00 PM EST Procedure Only Urology, [place] [address] [place] [address] Jose Lisa MD [address] [place] [address] 07/31/2024 2:20 PM EST Office Visit Family Practice [address] [place] [address] [address] [place] [address] Javon Scales DO [address] [place] [address] 08/08/2024 3:00 PM EST Office Visit Hematology/Oncology [facility] [address] [place] [phone] Martir Lazar MD [address] [place] [address] 09/05/2024 4:00 PM EDT Office Visit Cardiology, [facility] [address] [facility] [place] [address] Sridhar Fay MD 132 [facility] [place] [address] 09/26/2024 11:00 AM EDT Nurse Only Family Practice [address] [place] [address] [address] [facility] [place] [phone] Kelli Steele RN 293 [place] [address] 10/23/2024 2:00 PM EDT Office Visit Gastroenterology, [facility] [address] [facility] [place] [address] Makayla Moody CRNP [address] [facility] [place] [address] Health Maintenance Due Date Last Done Comments CKD PHOS USE SMARTSET [id number] 07/27/2024/, 02/25/2022, 01/29/2021 Adult Wellness Visit 09/20/2024 09/21/2023, 01/30/2022, 01/29/2021 Depression Screening 09/20/2024 09/21/2023 Albumin/Creatinine Ratio 03/02/2025 024, 04/26/2023, 07/13/2022, Additional history exists CKD HGB USE SMARTSET 99464 03/11/202503/11, 03/11/2024, 03/10/2024, Additional history exists DTap/Tdap Vaccines (3 - Td or Tdap) 04/26/2033 04/26/2023, 02/19/2013, 08/11/2007 Zoster Vaccines Completed 08/16/2019, 05/07, 05/23/2007 Influenza Vaccine (FLU shot) Completed , 03/11/2023, 02/23/2022, Additional history exists COVID-19 Vaccine Completed 03/20/2024, , 04/24/2021, Additional history exists Pneumococcal Vaccine: 65+ Years Completed 04/21/2024, 10/16/2014, 05/13/2006, Additional history exists HPV (Gardasil) Vaccine Aged Out No lo nger eligible based on patient's age to complete this topic Hepatitis B Vaccine Aged Out No longe r eligible based on patient's age to complete this topic MENINGOCOCCAL (MENACTRA/MENVEO) Aged Out No longer eligible based on patient's age to complete this topic documented as of this encounter Medical Devices Implanted Type Area Lockstitch Front Maker Device Identifier Shelf Expiration Date Model / Serial / Lot Bifurcated Endograft Implanted:Qty: 1 on 03/29/2017 by Lisa Emerson MD at OR [facility] N/A: Aorta ENDOLOGIX 01/13/2018 [id number] [id number] / [id number] / Proximal Endograft Implanted:Qty: 1 on 03/29/2017 by Lisa Emerson MD at OR [facility] N/A: Aorta ENDOLOGIX 01/16/2020 [id number] / [id number] / documented as of this encounter Advance Directives * Full Code (Latest Code Status on File) Date Activated Date Inactivated Comments 03/29/2017 2:46 PM 03/31/2017 3:33 PM This order reflects the patients wishes and were consensually agreed upon. Care Teams Harness Cleaner Relationship Specialty Start Date End Date Javon Scales DO [address] [place] [address] PCP - General Internal Medicine 11/19/23 documented as of this encounter
--- OUTSIDE RECORDS SUMMARY | 2024-05-15 18:51 | External Medical Summary | Summary of Care ---
Author Name Unknown Organization [facility] Address [address] [place] [address] Phone [phone] Care Team Providers Care Armature And Rotor Winder Name Role Phone Javon Scales Primary Care Provider [phone] Reason for Visit * Reason Onset Date Comments Pharmacy Questions 05/05/2024 Encounter Details Date Type Department Care Team (Late st Contact Info) Description 05/05/2024 Telephone Urology, [place] [address], [place] [id number] Baudilio Rosas MD [address] [place] [address] Pharmacy Questions Allergies Active Allergy Reactions Criticality Noted Date [...] as of this encounter (statuses as of 05/05/2024) Medications CO Q 10 10 MG PO [...] S) 8.6-50 MG per tabletIndications :Drug induced constipation,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 Active Saline Nasal [place] 0.65 % Nasal Solution (Tribune)Indication s:Epistaxis Administer into nostril 2 Sprays in the morning AND 2 Sprays before bedtime. 30 mL 12 2 Active Nitroglycerin 0.4 MG Sublingual Tablet Sublingual (Nitrostat)Indica tions:Atheroscler osis of [place] coronary artery of [place] heart without angina pectoris one tab under [...] (Tenormin)Indicat ions:HTN, goal below 140/90,Atheroscle rosis of [place] coronary artery of [place] heart without angina pectoris Take 1 tablet [...] for Pain, Severe. 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 documented as of this encounter (statuses as of 05/05/2024) Immunizations Name Administration Dates Next Due COVID-19 mRNA, LNP-s, No Pre serve, 2-Dose Series ([employer]) 04/24/2021,09/06/2020,08/09/2020 COVID-19, MRNA-LNP, PF, 30 M CG/0.3 mL, 12 YRS AND ABOVE, IM (PFIZER-Comirnaty) 03/20/2024 Covid-19, Mrna, Lnp-s, Pf, B ivalent, 30 Mcg, IM, 12 yrs and above (Pfizer) 05/19/2022 H1N1 2009 Influenza, IM 05/28/2009 Influenza, Whole Virus 03/07/2007,03/18/2006 Pneumococcal Conjugate Vacc, 13 Valent (Prevnar) 10/16/2014 Pneumococcal Conjugate Vacci ne, 20-valent ([id number]) 04/21/2024 Pneumococcal Polysaccharide PPV23 (Pneumovax) 05/13/2006 RSV [...] 18 years and over) Not on file Are you (or your family) missael eless [...] No 03/29/2017 5:28 PM Mago Reeves RN documented as of this encounter Mental Status * Because of a physical, mental, or emotional condition, do you have serious difficulty concentrating, remembering, or making decisions? (5 years old or older) Answer Entry Date Author No 03/29/2017 5:28 PM Mago Reeves RN documented in this encounter Miscellaneous Notes * Telephone Encounter - Gaby Nazario RN - 05/05/2024 4:52 PM EST Call returned as requested, confirmed shipment of medication. This will be shipped on 05/09/2024. * Telephone Encounter - Ragini Osorio OSA - 05/05/2024 12:44 PM EST Gayathri calling from [facility] to schedule shipment of Astiladrin for this pt. Requesting a call back form the office [phone] documented in this encounter Plan of Treatment Upcoming Encounters Date Type Department Care Team (Late st Contact Info) Description 05/11/2024 11:00 AM EST Nurse Only Urology, [place] [address] [place] [address] [place], Nurse Urology [address] [place] [address] 07/25/2024 12:30 PM EST Imaging Radiology [facility]st [facility] [place] [address] [place] [address] 07/28/2024 1:00 PM EST Procedure Only Urology, [place] [address] [place] [address] Jose Lisa MD [address] [place] [address] 07/31/2024 2:20 PM EST Office Visit Family Practice [address] [facility] [place] [address] [place] [address] Javon Scales DO [address] [place] [address] 08/08/2024 3:00 PM EST Office Visit Hematology/Oncology [facility] 200 [facility], [place] [phone] Mart[facility] [address] 09/05/2024 4:00 PM EDT Office Visit Cardiology, [facility] 132 [facility] [place] [address] Sridhar Fay MD [address] [place] [address] 09/26/2024 11:00 AM EDT Nurse Only Family Practice [address] [place] [address] 293 [facility] [place] [phone] Kelli Steele, ANIA 293 [place] [phone] 10/23/2024 2:00 PM EDT Office Visit Gastroenterology, [facility] 132 [facility] [place] [address] Makayla Moody CRNP 132 [facility] [place] [address] Health Maintenance Due Date Last Done Comments CKD PHOS USE SMARTSET 32570 07/27/202407/09, 02/25/2022, 01/29/2021 Adult Wellness Visit 09/20/2024 09/21/2023, 01/30/2022, 01/29/2021 Depression Screening 09/20/2024 09/21/2023 Albumin/Creatinine Ratio 03/02/2025 024, 04/26/2023, 07/13/2022, Additional history exists CKD HGB USE SMARTSET 08657 03/11/202503/11, 03/11/2024, 03/10/2024, Additional history exists DTap/Tdap [...] this encounter Medical Devices Implanted Type Area Oyster Sorter Device Identifier Shelf Expiration Date Model / Serial / Lot Bifurcated Endograft Implanted:Qty: 1 on 03/29/2017 by Lisa Emerson MD at OR [facility] N/A: Aorta ENDOLOGIX 01/13/2018 [id number]/11 6-40 / [id number] / Proximal Endograft Implanted:Qty: 1 on 03/29/2017 by Lisa Emerson MD at OR [facility] N/A: Aorta ENDOLOGIX 01/16/2020 A25-25/C75- O20V / [id number] / documented as of this encounter Advance Directives * Full Code (Latest Code Status on File) Date Activated Date Inactivated Comments 03/29/2017 2:46 PM 03/31/2017 3:33 PM This order reflects the patients wishes and were consensually agreed upon. Care Teams Armature And Rotor Winder Relationship Specialty Start Date End Date Javon Scales DO 293 [place] [address] PCP - General Internal Medicine 11/19/23 documented as of this encounter
--- OUTSIDE RECORDS SUMMARY | 2024-05-15 18:51 | External Medical Summary | Summary of Care ---
Author Name Unknown Organization [facility] Address [address] [place] [address] Phone [phone] Care Team Providers Care Boiler Tube Blower Name Role Phone Javon Scales Primary Care Provider [phone] Reason for Visit * Reason Comments NCV adstiladrin Encounter Details Date Type Department Care Team (Late st Contact Info) Description 05/11/2024 11:00 AM EST Nurse Only Urology, [place] [address] [place], [place] [id number] [place], Nurse Urology [address] [place] [address] NCV (adstiladrin) Allergies Active Allergy Reactions Criticality Noted Date [...] as of this encounter (statuses as of 05/11/2024) Medications CO Q 10 10 MG PO [...] S) 8.6-50 MG per tabletIndications :Drug induced constipation,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 Active Saline Nasal [place] 0.65 % Nasal Solution ([place])Indication s:Epistaxis Administer into nostril 2 Sprays in the morning AND 2 Sprays before bedtime. 30 mL 12 2 Active Nitroglycerin 0.4 MG Sublingual Tablet Sublingual (Nitrostat)Indica tions:Atheroscler osis of [place] coronary artery of [place] heart without angina pectoris one tab under [...] (Tenormin)Indicat ions:HTN, goal below 140/90,Atheroscle rosis of [place] coronary artery of [place] heart without angina pectoris Take 1 tablet [...] (HCC) 75 mL IS ONCE 05/11/2024 05/11/2024 [address] ded documented as of this encounter (statuses as of 05/11/2024) Active Problems Problem Noted Date Diagnosed Date [...] CORONARY ATHEROSCLEROSIS OF UNSPECIFIED TYPE OF VESSEL, [place] OR GRAFT History of bladder cancer documented as of this encounter (statuses as of 05/11/2024) Resolved Problems Problem Noted Date Diagnosed Date [...] stent and embolization 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[place]10 [facility] [place]1 month s/p reintervention for his R [...] as of this encounter (statuses as of 05/11/2024) Immunizations Name Administration Dates Next Due COVID-19 mRNA, LNP-s, No Pre serve, 2-Dose Series ([facility]) 04/24/2021,09/06/2020,08/09/2020 COVID-19, MRNA-LNP, PF, 30 M CG/0.3 mL, 12 YRS AND ABOVE, IM ([employer]ComirnatForte [employer]) 03/20/2024 Covid-19, Mrna, Lnp-s, Pf, B ivalent, 30 Mcg, IM, 12 yrs and above (Pfizer) 05/19/2022 H1N1 2009 Influenza, IM 05/28/2009 Influenza, Whole Virus 03/07/2007,03/18/2006 Pneumococcal Conjugate Vacc, 13 Valent (Prevnar) 10/16/2014 Pneumococcal Conjugate Vacci ne, 20-valent ([id number]) 04/21/2024 Pneumococcal Polysaccharide PPV23 (Pneumovax) 05/13/2006 RSV [...] on file documented as of this encounter Last Filed Vital Signs Vital Sign Reading Time Taken Comments Blood Pressure - - Pulse - - Temperature 37 C (98.6 F) 05/11/2024 11:49 AM EST Respiratory Rate - - Oxygen Saturation - - Inhaled Oxygen Concentration - - Weight - - Height - - Body Mass Index - - documented in this encounter Functional Status * Are you [...] Mago Reeves RN documented in this encounter Progress Notes * Terri Franklin LPN - 05/11/2024 12:46 PM EST Patient presents today for his first instillation of Adstiladrin. He was identified by name and date of . He denied any fever, chills, malaise. He denied allergies to betadine and latex. Patient was prepped with betadine. 14 fr coude latex catheter was inserted into his bladder. His bladder was emptied of all urine. Adstiladrin 75mg was instilled intravesically for a 1 hour retention. Patient began having bladder spasms after 25 minutes. His catheter was connected to a large drainage bag. His bladder was emptied of 75 ml of clear yellow urine. Patient will return in 3 months for a cystoscopy. documented in this encounter Plan of Treatment Upcoming Encounters Date Type Department Care Team (Late st Contact Info) Description 07/25/2024 12:30 PM EST Imaging Radiology [address] [place] [address] 07/28/2024 1:00 PM EST Procedure Only Urology, [place] [address] [facility] [place] [address] Jose Lisa MD [address] [facility] [place] [address] 07/31/2024 2:20 PM EST Office Visit Family Practice [address], [place] 293 [place] [address] Javon Scales DO 293 [facility] [place] [address] 08/08/2024 3:00 PM EST Office Visit [facility]ology[facility]On[facility] [place] [place] [phone] Martir Lazar MD 200 [place] [address] 09/05/2024 4:00 PM EDT Office Visit Cardiology, [facility] 132 [facility] [place] [address] Sridhar Fay MD 132 [place] [address] 09/26/2024 11:00 AM EDT Nurse Only Family Practice [address] [place] [address] 293 [place] [phone] Kelli Steele RN [address] [place] [phone] 10/23/2024 2:00 PM EDT Office Visit Gastroenterology, [facility] 132 [facility] [place] [address] Makayla Moody CRNP [facility] [place] [address] Health Maintenance Due Date Last Done Comments CKD PHOS USE SMARTSET 73435 07/27/202407/09, 02/25/2022, 01/29/2021 Adult Wellness Visit 09/20/2024 09/21/2023, 01/30/2022, 01/29/2021 Depression Screening 09/20/2024 09/21/2023 Albumin/Creatinine Ratio 03/02/2025 024, 04/26/2023, 07/13/2022, Additional history exists CKD HGB USE SMARTSET 93991 03/11/202503/11, 03/11/2024, 03/10/2024, Additional history exists DTap/Tdap [...] this encounter Medical Devices Implanted Type Area Motor Bike Mechanic Device Identifier Shelf Expiration Date Model / Serial / Lot Bifurcated Endograft Implanted:Qty: 1 on 03/29/2017 by Lisa Emerson MD [place] [facility] [place]/A: Aorta ENDOLOGIX 01/13/2018 [id number]/11 6-40 / [id number] / Proximal Endograft Implanted:Qty: 1 on 03/29/2017 by Lisa Emerson MD [place] [facility] [place]/A: Aorta ENDOLOGIX 01/16/2020 A25-25/C75- O20V / [id number] / documented as of this encounter Procedures Procedure Name Priority Date/Time Associated Diagnosis Comments URINALYSIS, POINT OF CARE DAPHNE 05/11/2024 11:06 AM EST BLADDER INSTILL, ANTICARCINOGENIC (NURSE) Routine 05/11/2024 Malignant neoplasm of overlapping sites of bladder (HCC) documented in this encounter Results * (ABNORMAL) URINALYSIS, POINT OF CARE (05/11/2024 11:06 AM EST) Color, Urine Dark Yellow(A) Light Yellow, Yellow 05/11/2024 11:09 AM [facility] [employer] Clarity, Urine Clear Clear 05/11/2024 11:09 AM [facility] [place] Glucose, Urine Negative Negative mg/dL 05/11/2024 11:09 AM EST [facility] [place] Bilirubin, Urine Negative Negative 05/11/2024 11:09 AM [facility] [place] Ketone, Urine Negative Negative mg/dL 05/11/2024 11:[address] [facility] Specific [place], Urine 1.020 1.003 - 1.030 05/11/2024 11:[address] [facility] Blood, Urine Negative Negative 05/11/2024 11:[address] [facility] pH, Urine 5.5 5.0, 5.5, 6.0, 6.5, 7.0, 7.5 units 05/11/2024 11:09 AM [facility] [place] Protein, Urine 100(A) Negative mg/dL 05/11/2024 11:09 AM [facility] [place] Urobilinogen, Urine 0.2 0.2, 1.0 mg/dL 05/11/2024 11:[address] [facility] Nitrite, Urine Negative Negative 05/11/2024 11:09 AM [facility] [place] Esterase, Urine Trace(A) Negative 05/11/2024 11:[address] [facility] Urine 05/11/2024 11:0 6 AM EST 05/11/2024 11:09 AM EST Nurse Urology [place] [facility] POINT OF CARE TEST DOCKED DEVICE UNSOLICITED RESULTS Final Result [facility] [address] [place] [address] * BLADDER INSTILL, ANTICARCINOGENIC (NURSE) (05/11/2024) Jose Lisa MD SURGERY Final Result documented in this encounter Visit Diagnoses Diagnosis Malignant neoplasm of overlapping sites of bladder (HCC)- Primary Malignant neoplasm of other specified sites of bladder documented in this encounter Administered Medications Inactive Administered Medications - up to 3 most recent administrations Medication Order MAR Action Action Date Dose Rate Site Carlos Parhamadenovec-vncg (Adstiladrin) intravesical instillation 75 mL 75 mL, Intravesical, ONCE, On Janeth 05/11/24 at 1100, For 1 dose, 1. Before administering Adstiladrin to the patient, insert one straight, or intermittent, urinary catheter with a proximal funnel opening that will accommodate the Luer lock adapter. 2. Use only catheters made of vinyl/PVC (uncoated or coated with hydrogel), red rubber latex or silicone to instill Adstiladrin. Do not use catheters coated or embedded with silver or antibiotics. 3. Use the catheter to completely empty the patient's bladder before instillation; DO NOT remove the catheter. 4. Attach the Luer lock end of the same catheter adaptor to the syringe containing Adstiladrin and insert the tapered end of the catheter adaptor into the funnel opening of the catheter. 5. Slowly instill 75 mL of Adstiladrin into the bladder through the catheter, ensuring that the complete volume is administered. 6. After the instillation, Adstiladrin should be retained in the bladder for 1 hour. During the 1-hour dwell time, the patient should reposition approximately every 15 minutes from left to right, back and abdomen to maximize bladder surface exposure. If, during the dwell time, the patient exhibits bladder cramping or premature voiding, repositioning of the patient may be adjusted or discontinued. 7. Evacuate Adstiladrin from the bladder as part of routine emptying of the bladder, or the patient may void and completely empty the bladder after 1 hour has elapsed. 8. Voided urine should be disinfected for 30 minutes with an equal volume of virucidal agent before flushing of the toilet.Indications:Malignant neoplasm of overlapping sites of bladder (HCC) Subsq SYR 05/11/2024 11:52 AM EST 37.5 mL Given 05/11/2024 11:51 AM EST 37.5 mL documented in this encounter Advance Directives * Full Code (Latest Code Status on File) Date Activated Date Inactivated Comments 03/29/2017 2:46 PM 03/31/2017 3:33 PM This order reflects the patients wishes and were consensually agreed upon. Care Teams Boiler Tube Blower Relationship Specialty Start Date End Date Javon Scales DO [address] [place] [facility] [place] [address] PCP - General Internal Medicine 11/19/23 documented as of this encounter
--- OUTSIDE RECORDS SUMMARY | 2024-05-15 18:51 | External Medical Summary | Summary of Care ---
Author Name Unknown Organization [facility] Address [address] [place] [address] Phone [phone] Care Team Providers Care Nephrologist Name Role Phone Javon Scales Primary Care Provider [phone] Reason for Visit * Reason Onset Date Comments Medication Refill 05/08/2024 Encounter Details Date Type Department Care Team (Late st Contact Info) Description 05/08/2024 Refill Urology, [place] [address] [place] [address] Michelle Galvez MD [address] [place] [address] Allergies Active Allergy Reactions Criticality Noted Date [...] as of this encounter (statuses as of 05/09/2024) Medications CO Q 10 10 MG PO [...] S) 8.6-50 MG per tabletIndications :Drug induced constipation,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 Active Saline Nasal [place] 0.65 % Nasal Solution ([place])Indication s:Epistaxis Administer into nostril 2 Sprays in the morning AND 2 Sprays before bedtime. 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 08/09:1 month s/p reintervention for his R [...] as of this encounter (statuses as of 05/09/2024) Immunizations Name Administration Dates Next Due COVID-19 mRNA, LNP-s, No Pre serve, 2-Dose Series ([employer]) 04/24/2021,09/06/2020,08/09/2020 COVID-19, MRNA-LNP, PF, 30 M CG/0.3 mL, 12 YRS AND ABOVE, IM ([employer]-ComirnatScodix) 03/20/2024 Covid-19, Mrna, Lnp-s, Pf, B ivalent, 30 Mcg, IM, 12 yrs and above (Tellyo) 05/19/2022 H1N1 2009 Influenza, IM 05/28/2009 Influenza, Whole Virus 03/07/2007,03/18/2006 Pneumococcal Conjugate Vacc, 13 Valent (Prevnar) 10/16/2014 Pneumococcal Conjugate Vacci ne, 20-valent ([id number]) 04/21/2024 Pneumococcal Polysaccharide PPV23 (Pneumovax) 05/13/2006 RSV [...] encounter Miscellaneous Notes * Telephone Encounter - Michelle Galvez MD - 05/09/2024 7:55 AM EST Signed Prescriptions: Disp Refills oxyBUTYnin Chloride ER 10 MG Oral Tablet E*2 Tabl*0 Sig: Take first tablet the day before and second tablet the day of bladder treatmentAuthorizing Provider: MICHELLE GALVEZ documented in this encounter Plan of Treatment Upcoming Encounters Date Type Department Care Team (Late st Contact Info) Description 05/11/2024 11:00 AM EST Nurse Only Urology, [place] [address] [place] [address] [place] Nurse Urology [address] [place] [address] 07/25/2024 12:30 PM EST Imaging Radiology [address] [place] [address] 07/28/2024 1:00 PM EST Procedure Only Urology, [place] [address] [place] [address] Michelle Galvez MD [address] [facility] [address] 07/31/2024 2:20 PM EST Office Visit Family Practice [address] [place] [address] [place] [phone] Javon Scales DO 293 [place] [address] 08/08/2024 3:00 PM EST Office Visit Hematology/Oncology [facility] 200 [facility], [place] [phone] Martir Lazar MD 200 [place] [address] 09/05/2024 4:00 PM EDT Office Visit Cardiology, [facility] 132 [facility] [place] [address] Sridhar Fay MD 132 [facility] [place] [address] 09/26/2024 11:00 AM EDT Nurse Only Family Practice [address] [place] [address] 293 [place] [phone] Kelli Steele, ANIA 293 [place] [address] 10/23/2024 2:00 PM EDT Office Visit Gastroenterology, [facility] 132 [facility] [place] [address] Makayla Moody CRNP 132 [facility] [place] [address] Health Maintenance Due Date Last Done Comments CKD PHOS USE SMARTSET 10835 07/27/202407/09, 02/25/2022, 01/29/2021 Adult Wellness Visit 09/20/2024 09/21/2023, 01/30/2022, 01/29/2021 Depression Screening 09/20/2024 09/21/2023 Albumin/Creatinine Ratio 03/02/2025 024, 04/26/2023, 07/13/2022, Additional history exists CKD HGB USE SMARTSET 82716 03/11/202503/11, 03/11/2024, 03/10/2024, Additional history exists DTap/Tdap [...] this encounter Medical Devices Implanted Type Area Conveyor Man Device Identifier Shelf Expiration Date Model / Serial / Lot Bifurcated Endograft Implanted:Qty: 1 on 03/29/2017 by Lisa Emerson MD at OR [facility] N/A: Aorta ENDOLOGIX 01/13/2018 [id number]/11 6-40 / [id number] / Proximal Endograft Implanted:Qty: 1 on 03/29/2017 by Lisa Emerson MD at OR [facility] N/A: Aorta ENDOLOGIX 01/16/2020 A25-25/C75- O20V / [id number] / documented as of this encounter Advance Directives * Full Code (Latest Code Status on File) Date Activated Date Inactivated Comments 03/29/2017 2:46 PM 03/31/2017 3:33 PM This order reflects the patients wishes and were consensually agreed upon. Care Teams Nephrologist Relationship Specialty Start Date End Date Javon Scales DO [address] [place] [address] PCP - General Internal Medicine 11/19/23 documented as of this encounter
--- OUTSIDE RECORDS SUMMARY | 2024-05-15 18:51 | External Medical Summary | Summary of Care ---
Author Name Unknown Organization [facility] Address [address] [place] [address] Phone [phone] Care Team Providers Care Elevated Guard Name Role Phone MitchJavon elizabeth Apolonia ARMENTA Primary Care Provider [phone] Encounter Details Date Type Department Care Team (Late st Contact Info) Description 05/05/2024 Orders Only Urology, [place] [address] [place] [address] Jose Lisa MD [address] [place] [address] Malignant neoplasm of overlapping sites of bladder (HCC)* Allergies Active Allergy Reactions Criticality Noted Date [...] as of this encounter (statuses as of 05/08/2024) Medications CO Q 10 10 MG PO [...] S) 8.6-50 MG per tabletIndications :Drug induced constipation,Tosser 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 Active Saline Nasal [place] 0.65 % Nasal Solution (Ullin)Indication s:Epistaxis Administer into nostril 2 Sprays in the morning AND 2 Sprays before bedtime. 30 mL 12 2 Active Nitroglycerin 0.4 MG Sublingual Tablet Sublingual (Nitrostat)Indica tions:Atheroscler osis of [place] coronary artery of [place] heart without angina pectoris one tab under [...] (Tenormin)Indicat ions:HTN, goal below 140/90,Atheroscle rosis of [place] coronary artery of [place] heart without angina pectoris Take 1 tablet [...] for Pain, Severe. 120 Tablet 4 Active Hospital, Clinic, or Other Facility Administered Medication Ordered Dose Route Frequency Start Date End Date Status Nadofaragene Firadenovec-vncg (Adstiladrin) intravesical instillation 75 mLIndications:Malignant neoplasm of overlapping sites of bladder (HCC) 75 mL IS ONCE 05/11/2024 05/11/2024 Ac tive documented as of this encounter (statuses as of 05/08/2024) Active Problems Problem Noted Date Diagnosed Date [...] CORONARY ATHEROSCLEROSIS OF UNSPECIFIED TYPE OF VESSEL, INUPIAT OR GRAFT History of bladder cancer documented as of this encounter (statuses as of 05/08/2024) Resolved Problems Problem Noted Date Diagnosed Date [...] stent and embolization 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/10 [facility] 08/09:1 month s/p reintervention for his R [...] as of this encounter (statuses as of 05/08/2024) Immunizations Name Administration Dates Next Due COVID-19 mRNA, LNP-s, No Pre serve, 2-Dose Series (Pfizer) 04/24/2021,09/06/2020,08/09/2020 COVID-19, MRNA-LNP, PF, 30 M CG/0.3 mL, 12 YRS AND ABOVE, IM (PFIZER-Comirnaty) 03/20/2024 Covid-19, Mrna, Lnp-s, Pf, B ivalent, 30 Mcg, IM, 12 yrs and above (Pfizer) 05/19/2022 H1N1 2009 Influenza, IM 05/28/2009 Influenza, Whole Virus 03/07/2007,03/18/2006 Pneumococcal Conjugate Vacc, 13 Valent (Prevnar) 10/16/2014 Pneumococcal Conjugate Vacci ne, 20-valent ([id number]) 04/21/2024 Pneumococcal Polysaccharide PPV23 (Pneumovax) 05/13/2006 RSV [...] Entry Date Author No 03/29/2017 5:28 PM EDT Mago Menezes RN documented in this encounter Plan of Treatment Upcoming Encounters Date Type Department Care Team (Late st Contact Info) Description 05/11/2024 11:00 AM EST Nurse Only Urology, [place] [address] [place] [address] [place], Nurse Urology [address] [place] [address] 07/25/2024 12:30 PM EST Imaging Radiology [facility] [address] [place] [address] 07/28/2024 1:00 PM EST Procedure Only Urology, [place] [address] [place] [address] Jose Lisa MD [address] [place] [address] 07/31/2024 2:20 PM EST Office Visit Family Practice [address] [place] [address] [address] [place] [address] Javon Scales DO [address] [place] [address] 08/08/2024 3:00 PM EST Office Visit Hematology/Oncology [facility] 200 [place] [phone] Martir Lazar MD [address] [place] [address] 09/05/2024 4:00 PM EDT Office Visit [facility] [address] Sridhar Fay MD [address] [facility] [place] [address] 09/26/2024 11:00 AM EDT Nurse Only Family Practice [address] [place] [address] [address] [place] [phone] Kelli Steele RN [address] [place] [address] 10/23/2024 2:00 PM EDT Office Visit Gastroenterology, [facility] [address] [place] [address] Makayla Moody CRNP [address] [place] [address] Health Maintenance Due Date Last Done Comments CKD PHOS USE SMARTSET 25131 07/27/202407/09, 02/25/2022, 01/29/2021 Adult Wellness Visit 09/20/2024 09/21/2023, 01/30/2022, 01/29/2021 Depression Screening 09/20/2024 09/21/2023 Albumin/Creatinine Ratio 03/02/2025 024, 04/26/2023, 07/13/2022, Additional history exists CKD HGB USE SMARTSET 15875 03/11/202503/11, 03/11/2024, 03/10/2024, Additional history exists DTap/Tdap [...] this encounter Medical Devices Implanted Type Area Chemical Handler Device Identifier Shelf Expiration Date Model / Serial / Lot Bifurcated Endograft Implanted:Qty: 1 on 03/29/2017 by Lisa Emerson MD at OR [facility] N/A: Aorta ENDOLOGIX 01/13/2018 [id number] [id number] / [id number] / Proximal Endograft Implanted:Qty: 1 on 03/29/2017 by Lisa Emerson MD at OR [facility] N/A: Aorta ENDOLOGIX 01/16/2020 A25-25/C75- [id number] / [id number] / documented as of this encounter Visit Diagnoses Diagnosis Malignant neoplasm of overlapping sites of bladder (HCC)- Primary Malignant neoplasm of other specified sites of bladder documented in this encounter Advance Directives * Full Code (Latest Code Status on File) Date Activated Date Inactivated Comments 03/29/2017 2:46 PM 03/31/2017 3:33 PM This order reflects the patients wishes and were consensually agreed upon. Care Teams Elevated Guard Relationship Specialty Start Date End Date Javon Scales DO [address] [facility] [place] [address] PCP - General Internal Medicine 11/19/23 documented as of this encounter
--- OUTSIDE RECORDS SUMMARY | 2024-05-15 18:51 | External Medical Summary ---
Author Name Unknown Address Unknown Organization : Laboratory Report Ordering Provider Test Date Status NURSEGAETANO 05/11/2024 11:06:00 Final Observation Date Value Abnormality Reference (Units ) Status Color of Urine by Auto 05/11/2024 11:06:00 Dark Yellow Abnormal Light Yellow, Yellow Final Clarity, Urine 05/11/2024 11:06:00 Clear Clear Final Glucose [Mass/volume] in Urine by Automated test strip 05/11/2024 11:06:00 Negative Negative (mg/dL) Final Bilirubin.total [Presence] in Urine by Automated test strip 05/11/2024 11:06:00 Negative Negative Final Ketones [Mass/volume] in Urine by Automated test strip 05/11/2024 11:06:00 Negative Negative (mg/dL) Final Specific gravity, Urine 05/11/2024 11:06:00 1.020 1.003-1.030 Final Hemoglobin [Presence] in Urine by Automated test strip 05/11/2024 11:06:00 Negative Negative Final pH, Urine 05/11/2024 11:06:00 5.5 5.0, 5.5, 6.0, 6.5, 7.0, 7.5 (units) Final Protein [Mass/volume] in Urine by Automated test strip 05/11/2024 11:06:00 100 Abnormal Negative (mg/dL) Final Urobilinogen, Urine 05/11/2024 11:06:00 0.2 0.2, 1.0 (mg/dL) Final Nitrite [Presence] in Urine by Automated test strip 05/11/2024 11:06:00 Negative Negative Final Leukocyte esterase [Presence] in Urine by Automated test strip 05/11/2024 11:06:00 Trace Abnormal Negative Final Performing Location
--- OUTSIDE RECORDS SUMMARY | 2024-05-15 18:52 | External Medical Summary | Summary of Care ---
Author Name Unknown Organization [facility] Address [address] [place] [address] Phone [phone] Care Team Providers Care Vice President Network Development Name Role Phone Asad Scales DO Primary Care Provider [phone] Reason for Visit * Reason Onset Date Comments Medication Refill 04/27/2024 Encounter Details Date Type Department Care Team (Late st Contact Info) Description 04/27/2024 Refill Family Practice [address] [facility] [address] [place] [phone] Asad Scales DO [address] [place] [address] Chronic midline thoracic back pain; Chronic left-sided low back pain without sciatica; Spinal stenosis of lumbar region at multiple levels Allergies Active Allergy Reactions Criticality Noted Date [...] as of this encounter (statuses as of 04/28/2024) Medications CO Q 10 10 MG PO CAPS Active VITAMIN B-6 100 MG PO TABS 200mg three times per week 0 12/12/19 08 Active OMEGA 3 1000 MG PO CAPS 1200 mg daily Active TUMS 500 MG PO CHEW Take by mouth. Activ e VITAMIN D3 1000 UNITS PO CAPS Take by mouth daily. 06/14/19 14 Active fluticasone (FLONASE) 50 MCG/ACT nasal sprayIndications: Bronchitis Administer 2 Sprays into each nostril daily. 1 Bottle 5 08/09/19 16 Active Docusate Sodium 100 MG Oral Capsule One pill by mouth twice a day as needed 60 Cap 11 06/28/19 18 Active Multiple Vitamins-Minerals (MULTIVITAMIN ADULT EXTRA C) CHEW 1 Tablet in the morning. 10/10/19 19 Active senna-docusate (SENOKOT S) 8.6-50 MG per tabletIndications :Drug induced constipation,Procurement Buyer shawn bilateral low back pain with bilateral sciatica Take 1 Tab by mouth 2 times a day as needed for Constipation. 1 Tab 05/29/20 19 Active clotrimazole-beta methasone (LOTRISONE) 1-0.05 % cream APPLY TOPICALLY TO RIGHT LEG AREA TWICE DAILY 135 g 5 10/19/19 20 Active Additional Information Patient not taking.Informant: Patient, Reported on 03/13/2024 Triamcinolone Acetonide 0.1 % External Lotion (Aristocort) Apply to affected area at groin twice daily as needed 60 mL 2 02/28/20 21 Active PreserVision AREDS 2+Multi Vit Oral Capsule Take by mouth 1 Capsule daily . Active Saline Nasal [place] 0.65 % Nasal Solution (Powell)Indication s:Epistaxis Administer into nostril 2 Sprays in the morning AND 2 Sprays before bedtime. 30 mL 12 07/29/19 22 Active Nitroglycerin 0.4 MG Sublingual Tablet Sublingual (Nitrostat)Indica tions:Atheroscler osis of [place] coronary artery of [place] heart without angina pectoris one tab under tongue as needed for chest pain maximum 3 doses 25 Tablet 5 09/24/19 22 Active Pravastatin Sodium 20 MG Oral Tablet (Pravachol)Indica tions:Dyslipidemi a, goal LDL below 100 TAKE 1 TABLET BY MOUTH ONCE DAILY AT BEDTIME 100 Tablet 3 06/10/19 23 Active Ketoconazole 2 % External Shampoo (Nizoral)Indicati ons:Scalp pruritus USE SHAMPOO AT LEAST 3 TIMES PER WEEK, LATHER, WAIT 5 MINUTES THEN RINSE 120 mL 08/15/19 23 Active Fluocinonide 0.05 % External SolutionIndicatio ns:Scalp pruritus APPLY SOLUTION TOPICALLY TO AFFECTED AREA OF SCALP NIGHTLY NEEDED FOR ITCHING 60 mL 08/15/19 23 Active Silodosin 4 MG Oral Capsule (Rapaflo) Take 1 Tablet by mouth in the morning. 90 Capsule 3 09/21/19 24 Active Amoxicillin 500 MG Oral Capsule (Amoxil) TAKE FOUR CAPSULES BY MOUTH ONE HOUR BEFORE APPOINTMENT 4 Capsule 12/27/19 24 Active amLODIPine Besylate 2.5 MG Oral Tablet (Norvasc)Indicati ons:HTN, goal below 140/90 TAKE 1 TABLET BY MOUTH IN THE MORNING 100 Tablet 1 01/18/20 24 Active Atenolol 25 MG Oral Tablet (Tenormin)Indicat ions:HTN, goal below 140/90,Atheroscle rosis of [place] coronary artery of [place] heart without angina pectoris Take 1 tablet by mouth twice daily 200 Tablet 1 02/08/20 24 Active Psyllium 58.6 % Oral Packet (Metamucil) Take 1 Packet by mouth in the morning. 03/02/20 24 Active Preparation H 0.25-14-74.9 % Rectal Ointment (Preparation H) Administer into the rectum 4 times a day as needed (Hemorrhoids). 03/02/20 24 Active Polyethylene Glycol 3350 17 GM/SCOOP Oral Powder (MiraLax)Indicati ons:Chronic constipation,Hemo rrhoids, external without complications Take 17 g by mouth in the morning and 17 g before bedtime. Take 1 capful daily in the morning.. 04/06/20 24 Active oxyCODONE HCl 5 MG Oral Tablet (Oxy IR)Indications:Ch ronic midline thoracic back pain,Chronic left-sided low back pain without sciatica,Spinal stenosis of lumbar region at multiple levels Take 1 Tablet by mouth every 6 hours as needed for Pain, Severe. 120 Tablet 04/28/20 24 Active oxyCODONE HCl 5 MG Oral Tablet (Oxy IR)Indications:Ch ronic midline thoracic back pain,Chronic left-sided low back pain without sciatica,Spinal stenosis of lumbar region at multiple levels Take 1 Tablet by mouth every 6 hours as needed for Pain, Severe. 120 Tablet 03/27/20 24 024 Discontin ued(Refil l) documented as of this encounter (statuses as of 04/28/2024) Active Problems Problem Noted Date Diagnosed Date [...] CORONARY ATHEROSCLEROSIS OF UNSPECIFIED TYPE OF VESSEL, GRINDSTONE OR GRAFT History of bladder cancer documented as of this encounter (statuses as of 04/28/2024) Resolved Problems Problem Noted Date Diagnosed Date [...] stent and embolization 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/10 [facility] 08/09:1 month s/p reintervention for his R [...] as of this encounter (statuses as of 04/28/2024) Immunizations Name Administration Dates Next Due COVID-19 mRNA, LNP-s, No Pre serve, 2-Dose Series (Pfizer) 04/24/2021,09/06/2020,08/09/2020 COVID-19, MRNA-LNP, PF, 30 M CG/0.3 mL, 12 YRS AND ABOVE, IM ([employer]-Comirnaty) 03/20/2024 Covid-19, Mrna, Lnp-s, Pf, B ivalent, 30 Mcg, IM, 12 yrs and above (Pfizer) 05/19/2022 H1N1 2009 Influenza, IM 05/28/2009 Influenza, Whole Virus 03/07/2007,03/18/2006 Pneumococcal Conjugate Vacc, 13 Valent (Prevnar) 10/16/2014 Pneumococcal Conjugate Vacci ne, 20-valent ([id number]) 04/21/2024 Pneumococcal Polysaccharide PPV23 (Pneumovax) 05/13/2006 RSV [...] 04/26/2023 Does the household have a re lar source of income? (Household - for ages [...] Assessment Author No 03/29/2017 5:28 PM EDT Menezes, Mago R, RN documented as of this encounter Mental Status * Because of a physical, mental, or emotional condition, do you have serious difficulty concentrating, remembering, or making decisions? (5 years old or older) Answer Entry Date Author No 03/29/2017 5:28 PM EDT Mago Menezes RN documented in this encounter Miscellaneous Notes * Telephone Encounter - Asad Scales DO - 04/28/2024 1:06 PM ESTSigned Prescriptions: Disp Refills oxyCODONE HCl 5 MG Oral Tablet (Oxy IR) 120 Ta*0 Sig: Take 1 Tablet by mouth every 6 hours as needed for Pain, Severe.Authorizing Provider: ASAD SCALES--------- * Telephone Encounter - Asad Scales DO - 04/28/2024 1:05 PM EST I have reviewed the patients controlled substance dispensing history in the Prescription Drug Monitoring Program in compliance with the [facility] regulations before prescribing a controlled substance. Last Tox Screen Results: Results for orders placed or performed in visit on 01/12/23 PAIN MANAGEMENT DRUG PANEL, URINE W/ INTERPRETATION Result Value Compliance Interpretation Based on the medication information provided: The positive oxycodone screening result is CONSISTENT with oxycodone use. Confirmatory testing is available upon request. Amphetamines Screen, U Negative Benzodiazepines Screen, U Negative Cannabinoids Screen, U Negative Cocaine Metabolite Screen, U Negative Fentanyl Screen, U Negative Hydrocodone Screen, U Negative Methadone Metabolite Screen, U Negative Morphine/Codeine Screen, U Negative Oxycodone Screen, U Positive (A) Valid Interpretation Normal Creatinine, U 148 Narrative Cutoff Concentrations: Drug Level Amphetamines 500 ng/mL Benzodiazepines 100 ng/mL Cannabinoids 50 ng/mL Cocaine Metabolite 150 ng/mL Fentanyl 1 ng/mL Hydrocodone / Hydromorphone 300 ng/mL Methadone Metabolite 100 ng/mL Morphine / Codeine 300 ng/mL Oxycodone / Oxymorphone 100 ng/mL Screening results are presumptive and can only be used for medical purposes. Confirmatory testing is available upon request. *Note: Due to a large number of results and/or encounters for the requested time period, some results have not been displayed. A complete set of results can be found in Results Review. * Telephone Encounter - Ebony Chavira [facility] - 04/28/2024 10:09 AM ESTPending Prescriptions: Disp Refills oxyCODONE HCl 5 MG Oral Tablet (Oxy IR) 120 Ta*0 Sig: Take 1 Tablet by mouth every 6 hours as needed for Pain, Severe. * Telephone Encounter - Ebony Chavira [facility] - 04/28/2024 10:07 AM EST I have reviewed the patients controlled substance dispensing history in the Prescription Drug Monitoring Program in compliance with the [facility] regulations before prescribing a controlled substance. PDMP checked on 04/28/2024. Pending Prescriptions: Disp Refills oxyCODONE HCl 5 MG Oral Tablet (Oxy IR) 120 Ta*0 Sig: Take 1 Tablet by mouth every 6 hours as needed for Pain, Severe. Last Visit: 04/21/2024 (in office), 11/29/2023 (telemedicine) Next Visit: 07/31/2024 Date medication was last filled: 03/27/24 Date medication is due for refill: 04/26/24 Pharmacy: [facility] [address] [place] [address] [place] [address] Is this request for a controlled substance? Yes and Urine Drug Screen Not completed Toxicology results: Results for orders placed or performed in visit on 01/12/23 PAIN MANAGEMENT DRUG PANEL, URINE W/ INTERPRETATION Result Value Compliance Interpretation Based on the medication information provided: The positive oxycodone screening result is CONSISTENT with oxycodone use. Confirmatory testing is available upon request. Amphetamines Screen, U Negative Benzodiazepines Screen, U Negative Cannabinoids Screen, U Negative Cocaine Metabolite Screen, U Negative Fentanyl Screen, U Negative Hydrocodone Screen, U Negative Methadone Metabolite Screen, U Negative Morphine/Codeine Screen, U Negative Oxycodone Screen, U Positive (A) Valid Interpretation Normal Creatinine, U 148 Narrative Cutoff Concentrations: Drug Level Amphetamines 500 ng/mL Benzodiazepines 100 ng/mL Cannabinoids 50 ng/mL Cocaine Metabolite 150 ng/mL Fentanyl 1 ng/mL Hydrocodone / Hydromorphone 300 ng/mL Methadone Metabolite 100 ng/mL Morphine / Codeine 300 ng/mL Oxycodone / Oxymorphone 100 ng/mL Screening results are presumptive and can only be used for medical purposes. Confirmatory testing is available upon request. *Note: Due to a large number of results and/or encounters for the requested time period, some results have not been displayed. A complete set of results can be found in Results Review. Please approve if appropriate. Thank you, Ebony Chavira, PharmD Clinical Pharmacist [facility] ([facility]) 04/28/24 10:07 AM [phone] * Telephone Encounter - Janice Narvaez CPhT - 04/27/2024 8:31 AM EST Did you pend patient's preferred pharmacy and medication before forwarding?yes Pharmacy: [facility] [address] [place] [address] Pending Prescriptions: Disp Refills oxyCODONE HCl 5 MG Oral Tablet (Oxy IR) 120 Ta*0 Sig: Take 1 Tablet by mouth every 6 hours as needed for Pain, Severe. Last Visit: 04/21/2024 (in office), 11/29/2023 (telemedicine) Next Visit: 07/31/2024 If no future appointments scheduled, and last appointment is greater than a year ago, please schedule patient for a follow-up appointment Last date the medication was ordered: 03/27/2024 Is this request for a controlled substance?Yes, What was the last refill date 03/27/2024 w/ quantity 120 and dosage 5 and Urine Drug Screen was completed Urine Drug Screen: Results for orders placed or performed in visit on 01/12/23 PAIN MANAGEMENT DRUG PANEL, URINE W/ INTERPRETATION Result Value Compliance Interpretation Based on the medication information provided: The positive oxycodone screening result is CONSISTENT with oxycodone use. Confirmatory testing is available upon request. Amphetamines Screen, U Negative Benzodiazepines Screen, U Negative Cannabinoids Screen, U Negative Cocaine Metabolite Screen, U Negative Fentanyl Screen, U Negative Hydrocodone Screen, U Negative Methadone Metabolite Screen, U Negative Morphine/Codeine Screen, U Negative Oxycodone Screen, U Positive (A) Valid Interpretation Normal Creatinine, U 148 Narrative Cutoff Concentrations: Drug Level Amphetamines 500 ng/mL Benzodiazepines 100 ng/mL Cannabinoids 50 ng/mL Cocaine Metabolite 150 ng/mL Fentanyl 1 ng/mL Hydrocodone / Hydromorphone 300 ng/mL Methadone Metabolite 100 ng/mL Morphine / Codeine 300 ng/mL Oxycodone / Oxymorphone 100 ng/mL Screening results are presumptive and can only be used for medical purposes. Confirmatory testing is available upon request. *Note: Due to a large number of results and/or encounters for the requested time period, some results have not been displayed. A complete set of results can be found in Results Review. Patient Phone Numbers Labs: Lab Results Component Value Date/Time CREAT 0.9 03/02/2024 10:52 AM CREAT 1.2 06/04/2020 08:29 AM POTASSIUM 4.5 03/02/2024 10:52 AM POTASSIUM 4.4 06/04/2020 08:29 AM TSH 1.65 11/29/2023 02:09 PM TSH 1.59 04/11/2010 11:44 AM LDL 82 04/26/2023 02:03 PM LDL 78 01/23/2020 10:50 AM LDL NOT APPLICABLE 01/23/2020 10:50 AM ALT 12 03/02/2024 10:52 AM ALT 16 01/23/2020 10:50 AM documented in this encounter Plan of Treatment Upcoming Encounters Date Type Department Care Team (Late st Contact Info) Description 07/25/2024 12:30 PM EST Imaging Radiology [address], [place] [address] [place] [address] 07/28/2024 1:00 PM EST Procedure Only Urology, [place] [address] [place] [address] Jose Lisa MD [address] [place] [address] 07/31/2024 2:20 PM EST Office Visit Family Practice [address] [place] [address] [address] [place] [address] Asad Scales DO [address] [place] [address] 08/08/2024 3:00 PM EST Office Visit Hematology/Oncology [facility] [address] [place] [phone] Martir Lazar MD [address] [place] [address] 09/05/2024 4:00 PM EDT Office Visit Cardiology, [facility] [address] [place] [address] Sridhar Fay MD [address] [place] [address] 09/26/2024 11:00 AM EDT Nurse Only Family Practice [address] [place] [address] [address] [place] [phone] Kelli Setele RN [address] [place] [address] 10/23/2024 2:00 PM EDT Office Visit Gastroenterology, [facility] 132 [facility] [place] [address] Makayla Moody CRNP 132 [place] [address] Health Maintenance Due Date Last Done Comments CKD PHOS USE SMARTSET 62390 07/27/202407/09, 02/25/2022, 01/29/2021 Adult Wellness Visit 09/20/2024 09/21/2023, 01/30/2022, 01/29/2021 Depression Screening 09/20/2024 09/21/2023 Albumin/Creatinine Ratio 03/02/2025 024, 04/26/2023, 07/13/2022, Additional history exists CKD HGB USE SMARTSET 13849 03/11/202503/11, 03/11/2024, 03/10/2024, Additional history exists DTap/Tdap [...] this encounter Medical Devices Implanted Type Area Registered Private Duty Nurse Device Identifier Shelf Expiration Date Model / Serial / Lot Bifurcated Endograft Implanted:Qty: 1 on 03/29/2017 by Lisa Emerson MD at OR [facility] N/A: Aorta ENDOLOGIX 01/13/2018 [id number]/[id number] 6-40 / [id number] / Proximal Endograft Implanted:Qty: 1 on 03/29/2017 by Lisa Emerson MD at OR [facility] N/A: Aorta ENDOLOGIX 01/16/2020 A25-25/C75- [id number] / [id number] / documented as of this encounter Visit Diagnoses Diagnosis Chronic midline thoracic back pain Chronic left-sided low back pain without sciatica Spinal stenosis of lumbar region at multiple levels Spinal stenosis, lumbar region, without neurogenic claudication documented in this encounter Advance Directives * Full Code (Latest Code Status on File) Date Activated Date Inactivated Comments 03/29/2017 2:46 PM 03/31/2017 3:33 PM This order reflects the patients wishes and were consensually agreed upon. Care Teams Vice President Network Development Relationship Specialty Start Date End Date Asad Scales DO [address] [place] [address] PCP - General Internal Medicine 11/19/23 documented as of this encounter
--- OUTSIDE RECORDS SUMMARY | 2024-05-15 18:52 | External Medical Summary | Summary of Care ---
Author Name Unknown Organization [facility] Address [address] [place] [address] Phone [phone] Care Team Providers Care Senior Game Developer Name Role Phone Javon Scales DO Primary Care Provider [phone] Reason for Visit * Reason Onset Date Comments FYI 04/24/2024 Encounter Details Date Type Department Care Team (Late st Contact Info) Description 04/24/2024 Telephone Family Practice [facility] [place] [address] [place] [phone] Javon Scales DO [address] [place] [address] FYI Allergies Active Allergy Reactions Criticality Noted Date [...] as of this encounter (statuses as of 04/24/2024) Medications CO Q 10 10 MG PO [...] S) 8.6-50 MG per tabletIndications :Drug induced constipation,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 Active Saline Nasal [place] 0.65 % Nasal Solution ([place])Indication s:Epistaxis Administer into nostril 2 Sprays in the morning AND 2 Sprays before bedtime. 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 4 Active Preparation H 0.25-14-74.9 % Rectal Ointment (Preparation H) Administer into the rectum 4 times a day as needed (Hemorrhoids). 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 120 Tablet 4 Active Polyethylene Glycol 3350 17 GM/SCOOP Oral Powder (MiraLax)Indicati ons:Chronic constipation,Hemo rrhoids, external without complications Take 17 g by mouth in the morning and 17 g before bedtime. Take 1 capful daily in the morning.. 4 Active documented as of this encounter (statuses as of 04/24/2024) Active Problems Problem Noted Date Diagnosed Date Chronic constipation 04/06/2024 Controlled substance agreement signed 01/12/2023 Malignant neoplasm of overlapping sites of bladd er 07/13/2022 Abdominal aortic aneurysm without rupture 02/06/ 2023 H/O endovascular stent graft for abdominal aorti [...] CORONARY ATHEROSCLEROSIS OF UNSPECIFIED TYPE OF VESSEL, [place] OR GRAFT History of bladder cancer documented as of this encounter (statuses as of 04/24/2024) Resolved Problems Problem Noted Date Diagnosed Date [...] stent and embolization 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/10 [facility] [place] 08/09:1 month s/p reintervention for his R [...] as of this encounter (statuses as of 04/24/2024) Immunizations Name Administration Dates Next Due COVID-19 mRNA, LNP-s, No Pre serve, 2-Dose Series (zanda) 04/24/2021,09/06/2020,08/09/2020 COVID-19, MRNA-LNP, PF, 30 M CG/0.3 mL, 12 YRS AND ABOVE, IM (PFIZER-Comirnat) 03/20/2024 Covid-19, Mrna, Lnp-s, Pf, B ivalent, 30 Mcg, IM, 12 yrs and above (Pfizer) 05/19/2022 H1N1 2009 Influenza, IM 05/28/2009 Influenza, Whole Virus 03/07/2007,2005,03/16/2005,04/07 Pneumococcal Conjugate Vacc, 13 Valent (Prevnar) 10/16/2014 Pneumococcal Conjugate Vacci ne, 20-valent ([id number]) 04/21/2024 Pneumococcal Polysaccharide PPV23 (Pneumovax) 05/13/2006,06/07/1997 RSV Vac., Recomb, Adjuvant, PF,0.5 Ml (Arexvy) 04/21/2024 Seasonal Influenza Vac., MDV , IM, 0.5 mL (Fluzone) 02/25/2015,02/22/2014,02/19/2013,02/22,03/03/2011,02/25/2010,02/07/2009 ,03/13/2008,03/16/2003,05/18/2002 Seasonal Influenza, High Dos e, Trivalent, PF, [...] encounter Miscellaneous Notes * Telephone Encounter - MotaKelli anandMOODY - 04/24/2024 3:32 PM EST Daughter is working on obtaining authorization for Cedric to have his procedure. Thank you * Telephone Encounter - Christa Sim OSA - 04/24/2024 1:02 PM EST Pts daughter zoë calling to give an update on her dad. She can be reached at her mobile number documented in this encounter Plan of Treatment Upcoming Encounters Date Type Department Care Team (Late st Contact Info) Description 07/25/2024 12:30 PM EST Imaging Radiology [address] [facility] [place] [address] 07/28/2024 1:00 PM EST Procedure Only Urology, [place] [address] [place] [address] Jose Lisa MD [address] [place] [address] 07/31/2024 2:20 PM EST Office Visit Family Practice [address] [place] [address] [address] [place] [address] Javon Scales, [address] [place] [address] 08/08/2024 3:00 PM EST [facility] [address] [place] [phone] Martir Lazar MD [address] [place] [address] 09/05/2024 4:00 PM EDT Office Visit Cardiology, [facility] 132 [facility] [place] [address] Sridhar Fay MD 132 [facility] [place] [address] 09/26/2024 11:00 AM EDT Nurse Only [facility], [place] 293 [facility], [place] [phone] Kelli Steele, ANIA 293 [place] [address] 10/23/2024 2:00 PM EDT Office Visit Gastroenterology, [facility] 132 [facility] [place] [address] Makayla Moody CRNP 132 [facility] [place] [address] Health Maintenance Due Date Last Done Comments CKD PHOS USE SMARTSET 57239 07/27/202407/09, 02/25/2022, 01/29/2021 Adult Wellness Visit 09/20/2024 09/21/2023, 01/30/2022, 01/29/2021 Depression Screening 09/20/2024 09/21/2023 Albumin/Creatinine Ratio 03/02/2025 024, 04/26/2023, 07/13/2022, Additional history exists CKD HGB USE SMARTSET 55330 03/11/202503/11, 03/11/2024, 03/10/2024, Additional history exists DTap/Tdap [...] this encounter Medical Devices Implanted Type Area Waiter/Waitress Club Device Identifier Shelf Expiration Date Model / Serial / Lot Bifurcated Endograft Implanted:Qty: 1 on 03/29/2017 by Lisa Emerson MD at [place] [facility] N/A: Aorta ENDOLOGIX 01/13/2018 [id number]/11 6-40 / [id number] / Proximal Endograft Implanted:Qty: 1 on 03/29/2017 by Lisa Emerson MD at OR [facility] N/A: Aorta ENDOLOGIX 01/16/2020 A25-25/C75- O20V / [id number] / documented as of this encounter Advance Directives * Full Code (Latest Code Status on File) Date Activated Date Inactivated Comments 03/29/2017 2:46 PM 03/31/2017 3:33 PM This order reflects the patients wishes and were consensually agreed upon. Care Teams Senior Game Developer Relationship Specialty Start Date End Date Javon Scales DO [address] [place] [address] PCP - General Internal Medicine 11/19/23 documented as of this encounter
--- OUTSIDE RECORDS SUMMARY | 2024-05-15 18:52 | External Medical Summary | Summary of Care ---
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 Active Saline Nasal [place] 0.65 % Nasal Solution ([place])Indication s:Epistaxis Administer into nostril 2 Sprays in the morning AND 2 Sprays before bedtime. 30 mL 12 2 Active Nitroglycerin 0.4 MG Sublingual Tablet Sublingual (Nitrostat)Indica tions:Atheroscler osis of [place] coronary artery of [place] heart without angina pectoris one tab under [...] (Tenormin)Indicat ions:HTN, goal below 140/90,Atheroscle rosis of [place] coronary artery of [place] heart without angina pectoris Take 1 tablet [...] CORONARY ATHEROSCLEROSIS OF UNSPECIFIED TYPE OF VESSEL, OS[place] OR GRAFT History of bladder cancer documented [...] stent and embolization 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[place]10 [facility] [place]1 month s/p reintervention [...] mRNA, LNP-s, No Pre serve, 2-Dose Series ([place]) 04/24/2021,09/06/2020,08/09/2020 COVID-19, MRNA-LNP, PF, 30 M CG/0.3 mL, 12 YRS AND ABOVE, IM [facility] 03/20/2024 Covid-19, Mrna, Lnp-s, Pf, B ivalent, 30 Mcg, IM, 12 yrs and above (Pfizer) 05/19/2022 H1N1 2009 Influenza, IM 05/28/2009 Influenza, Whole Virus 03/07/2007,03/18/2006 Pneumococcal Conjugate Vacc, 13 Valent (Prevnar) 10/16/2014 Pneumococcal Conjugate Vacci ne, 20-valent ([id number]) 04/21/2024 Pneumococcal Polysaccharide PPV23 (Pneumovax) 05/13/2006 RSV [...] of Assessment Author No 03/29/2017 5:28 PM Mgao Reeves RN * Because of a physical, [...] Mago Reeves RN documented in this encounter Plan of Treatment Upcoming Encounters Date Type Department Care Team (Late st Contact Info) Description 05/11/2024 11:00 AM EST Nurse Only Urology, [place] [address] [place] [facility] [place] [address] [place], Nurse Urology [facility] [place] [address] 07/25/2024 12:30 PM EST Imaging Radiology [address] [facility] [place] [address] 07/28/2024 1:00 PM EST Procedure Only Urology, [place] [address] [place] [address] Jose Lisa MD [address] [place] [address] 07/31/2024 2:20 PM EST Office Visit Family Practice [address] [place] [address] 293 [place] [address] Javon Scales DO 293 [place] [address] 08/08/2024 3:00 PM EST Office Visit Hematology/Oncology [facility] 200 [facility] [place] [phone] Martir Lazar MD 200 [facility] [place] [address] 09/05/2024 4:00 PM EDT Office Visit Cardiology, [facility] 132 [facility] [place] [address] Sridhar Fay MD 132 [place] [address] 09/26/2024 11:00 AM EDT Nurse Only Family Practice [address] [place] [address] 293 [place] [address] Kelli Steele RN 293 [place] [phone] 10/23/2024 2:00 PM EDT Office Visit Gastroenterology, [facility] 132 [facility] [place] [address] Makayla Moody CRNP 132 [facility] [place] [address] Health Maintenance Due Date Last Done Comments CKD PHOS USE SMARTSET 94309 07/27/202407/09, 02/25/2022, 01/29/2021 Adult Wellness Visit 09/20/2024 09/21/2023, 01/30/2022, 01/29/2021 Depression Screening 09/20/2024 09/21/2023 Albumin/Creatinine Ratio 03/02/2025 024, 04/26/2023, 07/13/2022, Additional history exists CKD HGB USE SMARTSET 87731 03/11/202503/11, 03/11/2024, 03/10/2024, Additional history exists DTap/Tdap [...] this encounter Medical Devices Implanted Type Area Automation Tester Device Identifier Shelf Expiration Date Model / Serial / Lot Bifurcated Endograft Implanted:Qty: 1 on 03/29/2017 by Lisa Emerson MD at [facility] N/A: Aorta ENDOLOGIX 01/13/2018 [id number]/11 6-40 / [id number] / Proximal Endograft Implanted:Qty: 1 on 03/29/2017 [place] Emerson [place] [facility] [place]/A: Aorta ENDOLOGIX 01/16/2020 A25-25/C75- [id number] / [id number] / documented as of this encounter Advance Directives * Full Code (Latest Code Status on File) Date Activated Date Inactivated Comments 03/29/2017 2:46 PM 03/31/2017 3:33 PM This order reflects the patients wishes and were consensually agreed upon. Care Teams Harness Repairer Relationship Specialty Start Date End Date Javon Scales DO 293 [facility] [place] [address] PCP - General Internal Medicine 11/19/23 documented as of this encounter
--- OUTSIDE RECORDS SUMMARY | 2024-05-15 18:52 | External Medical Summary | Summary of Care ---
Author Name Unknown Organization [facility] Address [address] [place] [address] Phone [phone] Care Team Providers Care Caretaker Resort Name Role Phone Javon Scales DO Primary Care Provider [phone] Reason for Visit * Reason Onset Date Comments FYI 04/24/2024 Encounter Details Date Type Department Care Team (Late st Contact Info) Description 04/24/2024 Telephone Family Practice 65 [facility] [place] [address] [place] [phone] Javon Scales DO [address] [place] [address] FYI Allergies Active Allergy Reactions [...] S) 8.6-50 MG per tabletIndications :Drug induced constipation,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 Active Saline Nasal [place] 0.65 % Nasal Solution ([place])Indication s:Epistaxis Administer into nostril 2 Sprays in the morning AND 2 Sprays before bedtime. 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 Take 1 tablet [...] CORONARY ATHEROSCLEROSIS OF UNSPECIFIED TYPE OF VESSEL, [place] OR GRAFT History of bladder cancer documented [...] stent and embolization 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/10 [facility] 08/09:1 month s/p reintervention for his R [...] mRNA, LNP-s, No Pre serve, 2-Dose Series ([place]) 04/24/2021,09/06/2020,08/09/2020 COVID-19, MRNA-LNP, PF, 30 M CG/0.3 mL, 12 YRS AND ABOVE, IM (PFIZER-Comirnat) 03/20/2024 Covid-19, Mrna, Lnp-s, Pf, B ivalent, 30 Mcg, IM, 12 yrs and above (Pfizer) 05/19/2022 H1N1 2009 Influenza, IM 05/28/2009 Influenza, Whole Virus 03/07/2007,03/18/2006 Pneumococcal Conjugate Vacc, 13 Valent (Prevnar) 10/16/2014 Pneumococcal Conjugate Vacci ne, 20-valent ([id number]) 04/21/2024 Pneumococcal Polysaccharide PPV23 (Pneumovax) 05/13/2006 RSV [...] encounter Miscellaneous Notes * Telephone Encounter - Christa Sim, FLY - 04/24/2024 1:02 PM EST Pts daughter zoë calling to give an update on her dad. She can be reached at her mobile number documented in this encounter Plan of Treatment Upcoming Encounters Date Type Department Care Team (Late st Contact Info) Description 07/25/2024 12:30 PM EST Imaging Radiology [address] 132 [facility] [place] [address] 07/28/2024 1:00 PM EST Procedure Only Urology, [place] [address] [place] [address] Jose Lisa MD [address] [place], [place] [phone] 07/31/2024 2:20 PM EST Office Visit Family Practice [address] [place] [address] 293 [place] [phone] Javon Scales DO [address] [place] [address] 08/08/2024 3:00 PM EST Office Visit Hematology/Oncology [facility] 200 [place] [phone] Martir Lazar MD 200 [place] [address] 09/05/2024 4:00 PM EDT Office Visit Cardiology, [facility] 132 [facility] [place] [address] Sridhar Fay MD 132 [facility] [place] [address] 09/26/2024 11:00 AM EDT Nurse Only Family Practice [address] [place] [address] 293 [facility] [place] [phone] Kelli Steele RN [address] [place] [phone] 10/23/2024 2:00 PM EDT Office Visit Gastroenterology, [facility] [address] [place] [address] Makayla Moody CRNP [address] [place] [address] Health Maintenance Due Date Last Done Comments CKD PHOS USE SMARTSET 31296 07/27/202407/09, 02/25/2022, 01/29/2021 Adult Wellness Visit 09/20/2024 09/21/2023, 01/30/2022, 01/29/2021 Depression Screening 09/20/2024 09/21/2023 Albumin/Creatinine Ratio 03/02/2025 024, 04/26/2023, 07/13/2022, Additional history exists CKD HGB USE SMARTSET 46733 03/11/202503/11, 03/11/2024, 03/10/2024, Additional history exists DTap/Tdap [...] this encounter Medical Devices Implanted Type Area Radiology Equipment Servicer Device Identifier Shelf Expiration Date Model / Serial / Lot Bifurcated Endograft Implanted:Qty: 1 on 03/29/2017 by Lisa Emerson MD at [place] [facility] N/A: Aorta ENDOLOGIX 01/13/2018 [id number] 6-40 / [id number] / Proximal Endograft Implanted:Qty: 1 on 03/29/2017 by Lisa Emerson MD at [place] [facility] N/A: Aorta ENDOLOGIX 01/16/2020 A25-25/C75- O20V / [id number] / documented as of this encounter Advance Directives * Full Code (Latest Code Status on File) Date Activated Date Inactivated Comments 03/29/2017 2:46 PM 03/31/2017 3:33 PM This order reflects the patients wishes and were consensually agreed upon. Care Teams Caretaker Resort Relationship Specialty Start Date End Date Javon Scales DO [address] [place] [address] PCP - General Internal Medicine 11/19/23 documented as of this encounter
--- OUTSIDE RECORDS SUMMARY | 2024-05-15 18:52 | External Medical Summary ---
Author Name Unknown Address Unknown Organization : Laboratory Report [facility]ing Provider [facility]23:00 Final Observation Date Value Abnormality Reference (Units ) Status Color of Urine by Auto 05/05/2024 13:23:00 Yellow Light Yellow, Yellow Final Clarity, Urine 05/05/2024 13:23:00 Clear Clear Final Glucose [Mass/volume] in Urine by Automated test strip 05/05/2024 13:23:00 Negative Negative (mg/dL) Final Bilirubin.total [Presence] in Urine by Automated test strip 05/05/2024 13:23:00 Negative Negative Final Ketones [Mass/volume] in Urine by Automated test strip 05/05/2024 13:23:00 Negative Negative (mg/dL) Final Specific gravity, Urine 05/05/2024 13:23:00 1.020 1.003-1.030 Final Hemoglobin [Presence] in Urine by Automated test strip 05/05/2024 13:23:00 Trace-intact Abnormal Negative Final pH, Urine 05/05/2024 13:23:00 5.5 5.0, 5.5, 6.0, 6.5, 7.0, 7.5 (units) Final Protein [Mass/volume] in Urine by Automated test strip 05/05/2024 13:23:00 30 Abnormal Negative (mg/dL) Final Urobilinogen, Urine 05/05/2024 13:23:00 0.2 0.2, 1.0 (mg/dL) Final Nitrite [Presence] in Urine by Automated test strip 05/05/2024 13:23:00 Negative Negative Final Leukocyte esterase [Presence] in Urine by Automated test strip 05/05/2024 13:23:00 Trace Abnormal Negative Final Performing Location
--- OUTSIDE RECORDS SUMMARY | 2024-05-15 18:52 | External Medical Summary | Summary of Care ---
Author Name Unknown Organization [facility] Address [address] [place] [address] Phone [phone] Care Team Providers Care Sheet Metal Assembler Name Role Phone Javon Scales DO Primary Care Provider [phone] Reason for Visit * Reason Onset Date Comments Test Results 04/26/202404/26; 04/27 Encounter Details Date Type Department Care Team (Late st Contact Info) Description 04/26/2024 Telephone Family Practice [address] [facility] [place] [address] [place] [address] Javon Scales DO [address] [place] [address] Test Results (04/26; 04/27) Allergies Active Allergy Reactions Criticality Noted Date [...] as of this encounter (statuses as of 04/27/2024) Medications CO Q 10 10 MG PO [...] S) 8.6-50 MG per tabletIndications :Drug induced constipation,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 Active Saline Nasal [place] 0.65 % Nasal Solution ([place])Indication s:Epistaxis Administer into nostril 2 Sprays in the morning AND 2 Sprays before bedtime. 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 Take 1 tablet [...] as of this encounter (statuses as of 04/27/2024) Active Problems Problem Noted Date Diagnosed Date [...] CORONARY ATHEROSCLEROSIS OF UNSPECIFIED TYPE OF VESSEL, [place] OR GRAFT History of bladder cancer documented as of this encounter (statuses as of 04/27/2024) Resolved Problems Problem Noted Date Diagnosed Date [...] stent and embolization 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/10 [facility] [place]:1 month s/p reintervention for his R [...] as of this encounter (statuses as of 04/27/2024) Immunizations Name Administration Dates Next Due COVID-19 mRNA, LNP-s, No Pre serve, 2-Dose Series ([facility]) 04/24/2021,09/06/2020,08/09/2020 COVID-19, MRNA-LNP, PF, 30 M CG/0.3 mL, 12 YRS AND ABOVE, IM ([facility]) 03/20/2024 Covid-19, Mrna, Lnp-s, Pf, B ivalent, 30 Mcg, IM, 12 yrs and above (Pfizer) 05/19/2022 H1N1 2009 Influenza, IM 05/28/2009 Influenza, Whole Virus 03/07/2007,03/18/2006 Pneumococcal Conjugate Vacc, 13 Valent (Prevnar) 10/16/2014 Pneumococcal Conjugate Vacci ne, 20-valent (Hicbpit31) 04/21/2024 Pneumococcal Polysaccharide PPV23 (Pneumovax) 05/13/2006 RSV [...] encounter Miscellaneous Notes * Telephone Encounter - Janice Robles LPN - 04/27/2024 12:24 PM EST Call placed to patient and relayed information from Dr. Scales. Pt acknowledged understanding and states he will comply. * Telephone Encounter - Janice Robles LPN - 04/26/2024 12:03 PM EST Call placed to patient - no answer. Message left to return call to [phone]. * Telephone Encounter - Janice Robles LPN - 04/26/2024 12:00 PM EST ----- Message from Javon Scales DO sent at 04/26/2024 7:53 AM EST ----- Small fat containing left inguinal hernia is present on US. Would just watch for change in size at this time. documented in this encounter Plan of Treatment Upcoming Encounters Date Type Department Care Team (Late st Contact Info) Description 07/25/2024 12:30 PM EST Imaging Radiology [address] [place] [address] 07/28/2024 1:00 PM EST Procedure Only Urology, [place] [address] [place] [address] Jose Lisa MD [address] [place] [address] 07/31/2024 2:20 PM EST Office Visit Family Practice [address], [place] [address] [place] [address] Javon Scales DO [address] [place] [address] 08/08/2024 3:00 PM EST Office Visit Hematology/Oncology [facility] 200 [facility] [place] [phone] Martir Lazar MD 200 [facility] [place] [address] 09/05/2024 4:00 PM EDT Office Visit Cardiology, [facility] 132 [facility] [place] [address] Sridhar Fay MD 132 [facility] [place] [address] 09/26/2024 11:00 AM EDT Nurse Only Family Practice [address] [place] [address] 293 [facility], [place] [phone] Kelli Steele RN 293 [facility] [place] [phone] 10/23/2024 2:00 PM EDT Office Visit Gastroenterology, [facility] 132 [facility] [place] [address] Makayla Moody CRNP 132 [facility] [place] [address] Health Maintenance Due Date Last Done Comments CKD PHOS USE SMARTSET 95421 07/27/202407/09, 02/25/2022, 01/29/2021 Adult Wellness Visit 09/20/2024 09/21/2023, 01/30/2022, 01/29/2021 Depression Screening 09/20/2024 09/21/2023 Albumin/Creatinine Ratio 03/02/2025 024, 04/26/2023, 07/13/2022, Additional history exists CKD HGB USE SMARTSET 90102 03/11/202503/11, 03/11/2024, 03/10/2024, Additional history exists DTap/Tdap [...] this encounter Medical Devices Implanted Type Area Automated Weaver Device Identifier Shelf Expiration Date Model / Serial / Lot Bifurcated Endograft Implanted:Qty: 1 on 03/29/2017 by Lisa Emerson MD at [place] [facility]/A: Aorta ENDOLOGIX 01/13/2018 [id number] 6-40 / [id number] / Proximal Endograft Implanted:Qty: 1 on 03/29/2017 by Lisa Emerson MD at [place] [facility] N/A: Aorta ENDOLOGIX 01/16/2020 A25-25/C75- [id number] / [id number] / documented as of this encounter Advance Directives * Full Code (Latest Code Status on File) Date Activated Date Inactivated Comments 03/29/2017 2:46 PM 03/31/2017 3:33 PM This order reflects the patients wishes and were consensually agreed upon. Care Teams Sheet Metal Assembler Relationship Specialty Start Date End Date Javon Scales DO [address] [place] [place] [address] PCP - General Internal Medicine 11/19/23 documented as of this encounter
--- OUTSIDE RECORDS SUMMARY | 2024-05-15 18:53 | External Medical Summary | Summary of Care ---
Author Name Unknown Organization [facility] Address [address] [facility] [address] Phone [phone] Care Team Providers Care Employment Agency Manager Name Role Phone MitchclaraJvaon DO Primary Care Provider [phone] Reason for Referral * Precert (Within 10 days (routine)) - Authorized Specialty Diagnoses / Procedures Referred By Contlaura t Referred To Contact Radiology Diagnoses History of lung cancer Lung nodules History of bladder cancer Encounter for follow-up examination after completed treatment for malignant neoplasm Procedures CT CHEST WO CONTRAST Martir Lazar MD [address] [place] [address] Phone: tel: fax: Referral ID Status Reason Start Date Expiration Date V isits Requested Visits Authorized [id number] Authorized 04/20/2024 999 999 Reason for Visit * Reason Onset Date Comments Advice 04/19/2024 LAUREN Encounter Details Date Type Department Care Team (Late st Contact Info) Description 04/19/2024 Telephone Hematology/Oncology Rajinder Owens [place] 200 [facility] [place] [address] Services, Scheduling [address] [place] [address] Advice (LAUREN) Allergies Active Allergy Reactions Criticality Noted Date Comments Ciprofloxacin Nausea/vomiting Low 09/27/2018 Stomach upset Finasteride Other (Please comment) Low 09/21/2023 Enlarged breast tissue Tamsulosin Hcl Other (Please comment) Medium 08/10/201 0 collapse Levofloxacin Other (Please comment) Low 03/05/2017 Hx of achilles tendon tear Atorvastatin Abdominal pain Low 12/23/2015 Lisinopril Other (Please comment) Medium 03/11/2007 Caused pt to have blurred vision and become very flushed Simvastatin Abdominal pain Low 12/23/2015 documented as of this encounter (statuses as of 04/20/2024) Medications CO Q 10 10 MG PO [...] S) 8.6-50 MG per tabletIndications :Drug induced constipation,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 Active Saline Nasal [place] 0.65 % Nasal Solution ([place])Indication s:Epistaxis Administer into nostril 2 Sprays in the morning AND 2 Sprays before bedtime. 30 mL 12 2 Active Nitroglycerin 0.4 MG Sublingual Tablet Sublingual (Nitrostat)Indica tions:Atheroscler osis of [place] coronary artery of [place] heart without angina pectoris one tab under [...] (Tenormin)Indicat ions:HTN, goal below 140/90,Atheroscle rosis of [place] coronary artery of [place] heart without angina pectoris Take 1 tablet [...] as of this encounter (statuses as of 04/20/2024) Active Problems Problem Noted Date Diagnosed Date [...] CORONARY ATHEROSCLEROSIS OF UNSPECIFIED TYPE OF VESSEL, [place] OR GRAFT History of bladder cancer documented as of this encounter (statuses as of 04/20/2024) Resolved Problems Problem Noted Date Diagnosed Date [...] stent and embolization 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 [facility]1 month s/p reintervention for his R [...] as of this encounter (statuses as of 04/20/2024) Immunizations Name Administration Dates Next Due COVID-19 mRNA, LNP-s, No Pre serve, 2-Dose Series ([employer]) 04/24/2021,09/06/2020,08/09/2020 COVID-19, MRNA-LNP, PF, 30 M CG/0.3 mL, 12 YRS AND ABOVE, IM ([email or web address]) 03/20/2024 Covid-19, Mrna, Lnp-s, Pf, B ivalent, 30 Mcg, IM, 12 yrs and above (Pfizer) 05/19/2022 H1N1 2009 Influenza, IM 05/28/2009 Influenza, Whole Virus 03/07/2007,2005,03/16/2005,04/07 Pneumococcal Conjugate Vacc, 13 Valent (Prevnar) 10/16/2014 Pneumococcal Polysaccharide PPV23 (Pneumovax) 05/13/2006,06/07/1997 Seasonal Influenza Vac., MDV , IM, 0.5 [...] No 04/26/2023 Does the household have a [facility] source of income? (Household - for ages [...] Author No 03/29/2017 5:28 PM EDT Mago Menezes, RN documented as of this encounter Mental Status * Because of a physical, mental, or emotional condition, do you have serious difficulty concentrating, remembering, or making decisions? (5 years old or older) Answer Entry Date Author No 03/29/2017 5:28 PM EDT Mago Menezes, RN documented in this encounter Miscellaneous Notes * Telephone Encounter - Jose Talbert RN - 04/20/2024 10:56 AM EST Scheduling- please call patient to have this scheduled 2 weeks prior to follow up in August. * Telephone Encounter - Martir Lazar MD - 04/20/2024 10:47 AM EST We should get CT chest without contrast in 08/2024 before the clinic visit. * Telephone Encounter - Farzaneh Ardon RN - 04/19/2024 10:[address] Lazar: is CT needed prior to follow up? * Telephone Encounter - Sharee Knox OSA - 04/19/2024 9:55 AM EST Patient calling in- he would like to know if CT scan is needed before appt w/ Dr. Lazar in August 2024. documented in this encounter Plan of Treatment Upcoming Encounters Date Type Department Care Team (Late st Contact Info) Description 04/21/2024 2:20 PM EST Office Visit Family Practice [address], [place] [address] [place] [address] Javon Scales, DO [address] [place] [address] 07/28/2024 1:00 PM EST Procedure Only Urology, [place] [address] [place] [address] Jose Lisa MD [address] [place] [address] 08/08/2024 3:00 PM EST Office Visit Hematology/Oncology [facility] 200 [facility] [place] [phone] Martir Lazar MD 200 [facility] [place] [address] 09/05/2024 4:00 PM EDT Office Visit Cardiology, [facility] 132 [facility] [place] [address] Sridhar Fay MD 132 [facility] [place] [address] 09/26/2024 11:00 AM EDT Nurse Only Family Practice [address] [place] [address] 293 [place] [phone] Kelli Steele, AN[place] [address] [place] [phone] 10/23/2024 2:00 PM EDT Office Visit Gastroenterology, [facility] 132 [facility] [place] [address] Makayla Moody CRNP 132 [facility] [place] [address] Scheduled Orders Name Type Priority Associated Diagnoses Orde r Schedule CT CHEST WO CONTRAST Medical Imaging Routine History of lung cancer Lung nodules History of bladder cancer Encounter for follow-up examination after completed treatment for malignant neoplasm Expected: 04/20/2024, Expires: 04/20/2025 Health Maintenance Due Date Last Done Comments CKD PHOS USE SMARTSET 89116 07/27/202407/09, 02/25/2022, 01/29/2021 Adult Wellness Visit 09/20/2024 09/21/2023, 01/30/2022, 01/29/2021 Depression Screening 09/20/2024 09/21/2023 Albumin/Creatinine Ratio 03/02/2025 024, 04/26/2023, 07/13/2022, Additional history exists CKD HGB USE SMARTSET 71657 03/11/202503/11, 03/11/2024, 03/10/2024, Additional history exists DTap/Tdap Vaccines (3 - Td or Tdap) 04/26/2033 04/26/2023, 02/19/2013, 08/11/2007 Pneumococcal Vaccine: 65+ Years Completed 10/16/2014, 05/13/2006, 06/07/1997 Zoster Vaccines Completed 08/16/2019, 05/07, 05/23/2007 Influenza Vaccine (FLU shot) Completed , 03/11/2023, 02/23/2022, Additional history exists COVID-19 Vaccine Completed 03/20/2024, , 04/24/2021, Additional history exists HPV (Gardasil) Vaccine Aged Out No lo nger eligible based on patient's age to complete this topic Hepatitis B Vaccine Aged Out No longe r eligible based on patient's age to complete this topic MENINGOCOCCAL (MENACTRA/MENVEO) Aged Out No longer eligible based on patient's age to complete this topic documented as of this encounter Medical Devices Implanted Type Area Injection Molding Technician Device Identifier Shelf Expiration Date Model / Serial / Lot Bifurcated Endograft Implanted:Qty: 1 on 03/29/2017 by Lisa Emerson MD [place] [facility] [place]A: Aorta ENDOLOGIX 01/13/2018 [id number] 6-40 / [id number] / Proximal Endograft Implanted:Qty: 1 on 03/29/2017 by Lisa Emerson MD [place] [facility] [place]/A: Aorta ENDOLOGIX 01/16/2020 A25-25/C75- [id number] / [id number] / documented as of this encounter Visit Diagnoses Diagnosis Encounter for follow-up examination after completed treatment for malignant neoplasm- Primary Unspecified follow-up examination History of lung cancer Personal history of malignant neoplasm of bronchus and lung Lung nodules Other nonspecific abnormal finding of lung field History of bladder cancer Personal history of malignant neoplasm of bladder documented in this encounter Advance Directives * Full Code (Latest Code Status on File) Date Activated Date Inactivated Comments 03/29/2017 2:46 PM 03/31/2017 3:33 PM This order reflects the patients wishes and were consensually agreed upon. Care Teams Employment Agency Manager Relationship Specialty Start Date End Date Javon Scales DO [address] [place] [address] PCP - General Internal Medicine 11/19/23 documented as of this encounter
--- OUTSIDE RECORDS SUMMARY | 2024-05-15 18:53 | External Medical Summary | Summary of Care ---
Author Name Unknown Organization [facility] Address [address] [facility] [address] Phone [phone] Care Team Providers Care Salary Manager Name Role Phone MitchclaraJavon DO Primary Care Provider [phone] Reason for Referral * Precert (Within 10 days (routine)) - Authorized Specialty Diagnoses / Procedures Referred By Contlaura t Referred To Contact Radiology Diagnoses History of lung cancer Lung nodules History of bladder cancer Encounter for follow-up examination after completed treatment for malignant neoplasm Procedures CT CHEST WO CONTRAST Martir Lazar MD [address] [place] [address] Phone: tel: fax: Referral ID Status Reason Start Date Expiration Date V isits Requested Visits Authorized [id number] Authorized 04/20/2024 999 999 Reason for Visit * Reason Onset Date Comments Advice 04/19/2024 LAUREN Encounter Details Date Type Department Care Team (Late st Contact Info) Description 04/19/2024 Telephone Hematology/Oncology Rajinder Owens [place] 200 [facility] [place] [address] Services, Scheduling [address] [place] [address] Advice (LAUREN) Allergies Active Allergy Reactions Criticality [...] S) 8.6-50 MG per tabletIndications :Drug induced constipation,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 Active Saline Nasal [place] 0.65 % Nasal Solution ([place])Indication s:Epistaxis Administer into nostril 2 Sprays in the morning AND 2 Sprays before bedtime. 30 mL 12 2 Active Nitroglycerin 0.4 MG Sublingual Tablet Sublingual (Nitrostat)Indica tions:Atheroscler osis of [place] coronary artery of [place] heart without angina pectoris one tab under [...] (Tenormin)Indicat ions:HTN, goal below 140/90,Atheroscle rosis of [place] coronary artery of [place] heart without angina pectoris Take 1 tablet [...] CORONARY ATHEROSCLEROSIS OF UNSPECIFIED TYPE OF VESSEL, [place] OR GRAFT History of bladder cancer documented [...] stent and embolization 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/10 [facility] 08/[place]:1 month s/p reintervention [...] mRNA, LNP-s, No Pre serve, 2-Dose Series ([employer]) 04/24/2021,09/06/2020,08/09/2020 COVID-19, MRNA-LNP, PF, 30 M CG/0.3 mL, 12 YRS AND ABOVE, IM ([facility]) 03/20/2024 Covid-19, Mrna, Lnp-s, Pf, B ivalent, [...] No 04/26/2023 Does the household have a [facility] source [facility]? (Household - for ages [...] encounter Miscellaneous Notes * Telephone Encounter - Marcellus Burns OSA - 04/20/2024 11:02 AM EST Patient scheduled and is aware * Telephone Encounter - Jose Talbert RN [...] PM EST Office Visit Family Practice 65 [facility] 293 [place] [address] Javon Scales DO 293 [facility] [place] [address] 07/25/2024 12:30 PM EST Imaging Radiology [facility]st [facility] 132 [facility] [place] [address] 07/28/2024 1:00 PM EST Procedure Only Urology, [place] [address] [place] [address] Jose Lisa MD [address] [place] [address] 08/08/2024 3:00 PM EST Office Visit Hematology/Oncology [facility] 200 [place] [address] Martir Lazar MD 200 [facility] [place] [address] 09/05/2024 4:00 PM EDT Office Visit Cardiology, [facility] 132 [facility] [address] Sridhar Fay MD 132 [facility] [place] [address] 09/26/2024 11:00 AM EDT Nurse Only Family Practice [address] [place] [address] [place] [address] Kelli Steele RN 293 [facility] [place] [phone] 10/23/2024 2:00 PM EDT Office Visit Gastroenterology, [facility] 132 [place] [address] Makayla Moody CRNP 132 [place] [address] Scheduled Orders Name Type Priority Associated Diagnoses Orde r Schedule CT CHEST WO CONTRAST Medical Imaging Routine History of lung cancer Lung nodules History of bladder cancer Encounter for follow-up examination after completed treatment for malignant neoplasm Expected: 04/20/2024, Expires: 04/20/2025 Health Maintenance Due Date Last Done Comments CKD PHOS USE SMARTSET 94966 07/27/202407/09, 02/25/2022, 01/29/2021 Adult Wellness Visit 09/20/2024 09/21/2023, 01/30/2022, 01/29/2021 Depression Screening 09/20/2024 09/21/2023 Albumin/Creatinine Ratio 03/02/2025 024, 04/26/2023, 07/13/2022, Additional history exists CKD HGB USE SMARTSET 52551 03/11/202503/11, 03/11/2024, 03/10/2024, Additional history exists DTap/Tdap [...] this encounter Medical Devices Implanted Type Area Microstrategy Developer Device Identifier Shelf Expiration Date Model / Serial / Lot Bifurcated Endograft Implanted:Qty: 1 on 03/29/2017 by Lisa Emerson MD [place] [facility] [place]/A: Aorta ENDOLOGIX 01/13/2018 [id number]/11 6-40 / [id number] / Proximal Endograft Implanted:Qty: 1 on 03/29/2017 by Lisa Emerson MD [place] [facility] N/A: Aorta ENDOLOGIX 01/16/2020 A25-25/C75- O20V / [id number] / documented as of this encounter Visit [...] and were consensually agreed upon. Care Teams Salary Manager Relationship Specialty Start Date End Date Javon Scales DO [address] [place] [address] PCP - General Internal Medicine 11/19/23 documented as of this encounter
--- OUTSIDE RECORDS SUMMARY | 2024-05-15 18:53 | External Medical Summary | Summary of Care ---
Author Name Unknown Organization [facility] Address [address] [place] [address] Phone [phone] Care Team Providers Care Data Conversion Analyst Name Role Phone Javon Scales DO Primary Care Provider [phone] Reason for Referral * Evaluate & Treat - Unlimited Visits (Within 10 days (routine)) - Authorized Specialty Diagnoses / Procedures Referred By Roberto gómez Referred To Contact Podiatry Diagnoses Degeneration of intervertebral disc of lumbar region with discogenic back pain and lower extremity pain Chronic kidney disease, stage 3a (HCC) Hypertensive kidney disease with stage 3a chronic kidney disease (HCC) Overgrown toenails Javon Scales DO [address] [place] [address] Phone: tel: fax: Referral ID Status Reason Start Date Expiration Date Visits Requested Visits Authorized [id number] Authorized Specialty Services Required 04/14/2024 [id number] Question Answer Referral Priority Within 10 days (routine) Where should this appointment be scheduled? [facility] Which condition are you referring this patient for? Nail trimming Medicare Patient? Yes Can Patient perform routine footcare without assistance? No Does patient have a chronic condition? Yes Has patient been seen in the past 6 months? 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 Active Saline Nasal [place] 0.65 % Nasal Solution ([place])Indication s:Epistaxis Administer into nostril 2 Sprays in the morning AND 2 Sprays before bedtime. 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 OR GRAFT History of bladder cancer documented as of this encounter (statuses as of 04/17/2024) Resolved Problems Problem Noted Date Diagnosed Date [...] stent and embolization 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/10 [facility] 08/09:1 month s/p reintervention for his R [...] as of this encounter (statuses as of 04/17/2024) Immunizations Name Administration Dates Next Due COVID-19 mRNA, LNP-s, No Pre serve, 2-Dose Series (Visual.ly) 04/24/2021,09/06/2020,08/09/2020 COVID-19, MRNA-LNP, PF, 30 M CG/0.3 mL, 12 YRS AND ABOVE, IM (Osteogenix-Comirnaty) 03/20/2024 Covid-19, Mrna, Lnp-s, Pf, B ivalent, 30 Mcg, IM, 12 yrs and above (Visual.ly) 05/19/2022 H1N1 2009 Influenza, IM 05/28/2009 Influenza, [...] No 04/26/2023 Does the household have a [place]ency [place] source of income? (Household - for ages [...] Miscellaneous Notes * Telephone Encounter - Christa Sim OSA - 04/17/2024 12:17 PM EST Pt aware * Telephone Encounter - Christa Sim OSA - 04/14/2024 4:37 PM EST Pt scheduled at [facility] in [place] on 04.26.24 at 1:00. LMOM to call back for appt details. Lore is aware of date/time/location. * Telephone Encounter - Javon Scales DO - 04/14/2024 2:22 PM EST Patient is unable to bend at the waist to cut his toenails Will refer to Podiatry documented in this encounter Plan of Treatment Upcoming Encounters Date Type Department Care Team (Late st Contact Info) Description 04/21/2024 2:20 PM EST Office Visit Family Practice [address], [place] [address] [place] [phone] Javon Scales DO [address] [place] [address] 07/28/2024 1:00 PM EST Procedure Only Urology, Ward [address] [place] [address] Jose Lisa MD [address] [place] [address] 08/08/2024 3:00 PM EST Office Visit Hematology/Oncology [facility] [address] [place] [phone] Martir Lazar MD [address] [place] [address] 09/05/2024 4:00 PM EDT Office Visit Cardiology, [facility] [address] [facility] [place] [address] Sridhar Fay MD [address] [place] [address] 09/26/2024 11:00 AM EDT Nurse Only Family Practice [address] [place] [address] [address] [place] [phone] Kelli Steele RN [address] [place] [phone] 10/23/2024 2:00 PM EDT Office Visit Gastroenterology, [facility] 132 [facility] [place] [address] Makayla Moody CRNP [address] [facility] [place] [address] Scheduled Referrals Name Type Priority Associated Diagnoses Orde r Schedule PODIATRY REFERRAL OP Referral Within 10 days (routine) Degeneration of intervertebral disc of lumbar region with discogenic back pain and lower extremity pain Chronic kidney disease, stage 3a (HCC) Hypertensive kidney disease with stage 3a chronic kidney disease (HCC) Overgrown toenails Ordered: 04/14/2024 Health Maintenance Due Date Last Done Comments CKD PHOS USE SMARTSET 60556 07/27/2024 02/2 , 02/25/2022, 01/29/2021 Adult Wellness Visit 09/20/2024 09/21/2023, 01/30/2022, 01/29/2021 Depression Screening 09/20/2024 09/21/2023 Albumin/Creatinine Ratio 03/02/2025 024, 04/26/2023, 07/13/2022, Additional history exists CKD HGB USE SMARTSET 50528 03/11/202503/11, 03/11/2024, 03/10/2024, Additional history exists DTap/Tdap [...] this encounter Medical Devices Implanted Type Area Geophysical Laboratory Supervisor Device Identifier Shelf Expiration Date Model / Serial / Lot Bifurcated Endograft Implanted:Qty: 1 on 03/29/2017 by Lisa Emerson MD at [facility] N/A: Aorta ENDOLOGIX 01/13/2018 [id number]/11 6-40 / [id number] / Proximal Endograft Implanted:Qty: 1 on 03/29/2017 by Lisa Emerson MD at [place] [facility] N/A: Aorta ENDOLOGIX 01/16/2020 A25-25/C75- [id number] / [id number] / documented as of this encounter Visit Diagnoses Diagnosis Degeneration of intervertebral disc of lumbar region with discogenic back pain and lower extremity pain- Primary Chronic kidney disease, stage 3a (HCC) Hypertensive kidney disease with stage 3a chronic kidney disease (HCC) Overgrown toenails Other specified disease of nail documented in this encounter Advance Directives * Full Code (Latest Code Status on File) Date Activated Date Inactivated Comments 03/29/2017 2:46 PM 03/31/2017 3:33 PM This order reflects the patients wishes and were consensually agreed upon. Care Teams Data Conversion Analyst Relationship Specialty Start Date End Date Javon Scales DO [address] [facility] [place] [address] PCP - General Internal Medicine 11/19/23 documented as of this encounter
--- OUTSIDE RECORDS SUMMARY | 2024-05-15 18:53 | External Medical Summary | Summary of Care ---
Author Name Unknown Organization [facility] Address [address] [place] [address] Phone [phone] Care Team Providers Care Supervisor Accounts Receivable Name Role Phone Javon Scales DO Primary Care Provider [phone] Reason for Referral * Evaluate & Treat [...] (HCC) Overgrown toenails Javon Scales DO [address] [place] [address] Phone: tel: fax: Referral ID Status Reason Start Date Expiration Date Visits Requested Visits Authorized [id number] Authorized Specialty Services Required 04/14/2024 [id number] Question Answer Referral Priority Within 10 days (routine) Where should this appointment be scheduled? [facility] Which condition are you referring this patient for? Nail trimming Medicare Patient? Yes Can Patient perform routine footcare without assistance? No Does patient have a chronic condition? Yes Has patient been seen in the past 6 months? 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 Active Saline Nasal [place] 0.65 % Nasal Solution ([place])Indication s:Epistaxis Administer into nostril 2 Sprays in the morning AND 2 Sprays before bedtime. 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 one tab under [...] (Tenormin)Indicat ions:HTN, goal below 140/90,Atheroscle rosis of [place] coronary artery of [place] heart without angina pectoris Take 1 tablet [...] CORONARY ATHEROSCLEROSIS OF UNSPECIFIED TYPE OF VESSEL, [place] OR GRAFT History of bladder cancer documented [...] stent and embolization 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/10 [facility] 08/09:1 month s/p reintervention for his R [...] mRNA, LNP-s, No Pre serve, 2-Dose Series (OrganizedWisdom) 04/24/2021,09/06/2020,08/09/2020 COVID-19, MRNA-LNP, PF, 30 M CG/0.3 mL, 12 YRS AND ABOVE, IM (Panjo-Comirnat) 03/20/2024 Covid-19, Mrna, Lnp-s, Pf, B ivalent, 30 Mcg, IM, 12 yrs and above (OrganizedWisdom) 05/19/2022 H1N1 2009 Influenza, IM 05/28/2009 Influenza, Whole Virus 03/07/2007,03/18/2006 Pneumococcal Conjugate Vacc, 13 Valent (Prevnar) 10/16/2014 Pneumococcal Polysaccharide PPV23 (Pneumovax) 05/13/2006 Seasonal Influenza Vac., MDV , IM, 0.5 [...] No 03/29/2017 5:28 PM EDT Mago Menezes, ANIA * Because of a physical, mental, or emotional condition, do you have difficulty doing errands alone such as visiting a doctors office or shopping? (15 years old or older) Answer Date of Assessment Author No 03/29/2017 5:28 PM Mago Reeves, RN documented as of this encounter Mental Status * Because of a physical, mental, or emotional condition, do you have serious difficulty concentrating, remembering, or making decisions? (5 years old or older) Answer Entry Date Author No 03/29/2017 5:28 PM Mago Reeves, RN documented in this encounter Miscellaneous Notes * Telephone Encounter - Christa Sim OSA - 04/14/2024 4:37 PM EST Pt scheduled at [facility] in [place] on 04.26.24 at 1:00. LMOM to call [...] EST Office Visit Family Practice [address], [place] [address] [place] [address] Javon Scales DO [address] [place] [address] 07/28/2024 1:00 PM EST Procedure Only Urology, [place] [address] [place] [address] Jose Lisa MD [address] [place] [address] 08/08/2024 3:00 PM EST Office Visit Hematology/Oncology [facility] [address] [facility] [place] [address] Martir Lazar MD [address] [facility] [place], [place] [address] 09/05/2024 4:00 PM EDT Office Visit Cardiology, [facility] 132 [facility] [place] [address] Sridhar Fay MD 132 [facility] [place] [address] 09/26/2024 11:00 AM EDT Nurse Only Family Practice [address] [place] [address] 293 [facility] [place] [phone] Kelli Steele RN 293 [place] [phone] 10/23/2024 2:00 PM EDT Office Visit Gastroenterology, [facility] 132 [facility] [place] [address] Makayla Moody CRNP 132 [facility] [place] [address] Scheduled Referrals Name Type Priority Associated Diagnoses [...] Last Done Comments CKD PHOS USE SMARTSET 13930 07/27/2024 02/2 , 02/25/2022, 01/29/2021 Adult Wellness Visit 09/20/2024 09/21/2023, 01/30/2022, 01/29/2021 Depression Screening 09/20/2024 09/21/2023 Albumin/Creatinine Ratio 03/02/20252 024, 04/26/2023, 07/13/2022, Additional history exists CKD HGB USE SMARTSET 64179 03/11/202503/11, 03/11/2024, 03/10/2024, Additional history exists DTap/Tdap [...] this encounter Medical Devices Implanted Type Area Door To Door Salesperson Device Identifier Shelf Expiration Date Model / Serial / Lot Bifurcated Endograft Implanted:Qty: 1 on 03/29/2017 by Lisa Emerson MD at [place] [facility] N/A: Aorta ENDOLOGIX 01/13/2018 [id number]/11 6-40 / [id number] / Proximal Endograft Implanted:Qty: 1 on 03/29/2017 by Lisa Emerson MD at [place] [facility] N/A: Aorta ENDOLOGIX 01/16/2020 A25-25/C75- [id number] / [id number] / documented as of this encounter Visit [...] and were consensually agreed upon. Care Teams Supervisor Accounts Receivable Relationship Specialty Start Date End Date Javon Scales DO [address] [address] PCP - General Internal Medicine 11/19/23 documented as of this encounter
--- OUTSIDE RECORDS SUMMARY | 2024-05-15 18:53 | External Medical Summary | Summary of Care ---
Author Name Unknown Organization [facility] Address [address] [place] [address] Phone [phone] Care Team Providers Care Tool Engineer Name Role Phone Javon Scales DO Primary Care Provider [phone] Reason for Visit * Reason Onset Date Comments Follow Up Immunization RSV Vaccine 04/21/2024 Encounter Details Date Type Department Care Team (Latest Contact Info) Description 04/21/2024 2:20 PM EST Office Visit Family Practice [facility] [address] [place] [address] Javon Scales DO [address] [place] [address] Atherosclerosis of [place] coronary artery of [place] heart without angina pectoris*; Malignant neoplasm of overlapping sites of bladder (HCC); Aortocoronary bypass status; RORY inhibitor intolerance; DYSLIPIDEMIA, GOAL LDL BELOW 100; Hip pain, left; Benign prostatic hyperplasia with urinary retention; Lung nodules; Thrombocytopenia (HCC); 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); Left inguinal hernia; Degeneration of intervertebral disc of lumbar region with discogenic back pain; Hypertensive kidney disease with stage 3a chronic kidney disease (HCC); H/O endovascular stent graft for abdominal aortic aneurysm; Chronic constipation; Need for pneumococcal vaccination; Need for RSV vaccination Allergies Active Allergy Reactions Criticality Noted Date [...] as of this encounter (statuses as of 04/21/2024) Medications CO Q 10 10 MG PO [...] S) 8.6-50 MG per tabletIndications :Drug induced constipation,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 Active Saline Nasal Windfall 0.65 % Nasal Solution (Lyon)Indication s:Epistaxis Administer into nostril 2 Sprays in the morning AND 2 Sprays before bedtime. 30 mL 12 2 Active Nitroglycerin 0.4 MG Sublingual Tablet Sublingual (Nitrostat)Indica tions:Atheroscler osis of [place] coronary artery of [place] heart without angina pectoris one tab under [...] (Tenormin)Indicat ions:HTN, goal below 140/90,Atheroscle rosis of [place] coronary artery of [place] heart without angina pectoris Take 1 tablet [...] capful daily in the morning.. 4 Active Arexvy 120 MCG/0.5ML Intramuscular Suspension Reconstituted (RSV PreF3 Vac Recomb Adjuvanted)Indica tions:Need for RSV vaccination Inject 0.5 mL into a large muscle once for 1 dose. 1 Each 04/21/2024 3:31 PM EST 4 024 Active documented as of this encounter (statuses as of 04/21/2024) Active Problems Problem Noted Date Diagnosed Date [...] CORONARY ATHEROSCLEROSIS OF UNSPECIFIED TYPE OF VESSEL, SHOSHONE-BANNOCK OR GRAFT History of bladder cancer documented as of this encounter (statuses as of 04/21/2024) Resolved Problems Problem Noted Date Diagnosed Date [...] stent and embolization 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/10 [facility] 08/09:1 month s/p reintervention for his R [...] as of this encounter (statuses as of 04/21/2024) Immunizations Name Administration Dates Next Due COVID-19 mRNA, LNP-s, No Pre serve, 2-Dose Series (Cybera) 04/24/2021,09/06/2020,08/09/2020 COVID-19, MRNA-LNP, PF, 30 M CG/0.3 mL, 12 YRS AND ABOVE, IM (PFIZER-Comirnaty) 03/20/2024 Covid-19, Mrna, Lnp-s, Pf, B ivalent, 30 Mcg, IM, 12 yrs and above (Pfizer) 05/19/2022 H1N1 2009 Influenza, IM 05/28/2009 Influenza, Whole Virus 03/07/2007,03/18/2006 Pneumococcal Conjugate Vacc, 13 Valent (Prevnar) 10/16/2014 Pneumococcal Conjugate Vacci ne, 20-valent ([id number]) 04/21/2024 Pneumococcal Polysaccharide PPV23 (Pneumovax) 05/13/2006 RSV [...] Passive Smoke Exposure: Past Smokeless Tobacco: Never Tobacco Cessation:Counseling Given: Yes Comments:quit smoking about 1997 Alcohol Use Standard [...] No 04/26/2023 Does the household have a [facility] source of income? (Household - for ages [...] Sign Reading Time Taken Comments Blood Pressure 120/62 04/21/2024 2:26 PM EST Pulse 84 04/21/2024 2:26 PM EST Temperature 36.7 C (98.1 F) 04/21/2024 2:26 PM ES T Respiratory Rate 98 04/21/2024 2:26 PM EST Oxygen Saturation - - Inhaled Oxygen Concentration - - Weight 60.2 kg (132 lb 12.8 oz) 04/21/2024 2:26 PM EST Height 167.6 cm (5' 6") 04/21/2024 2:26 PM EST Body Mass Index 21.43 04/21/2024 2:26 PM EST documented in this encounter Functional Status * [...] Mago Reeves RN documented in this encounter Patient Instructions * Patient Instructions* Kelli Mota LPN - 04/21/2024 2:25 PM EST Possible side effects of RSV vaccine, (Respiratory Syncytial Virus), are usually mild and can include: Soreness, swelling or redness at injection site Low grade fever Body aches or joint pain Headache Nausea or diarrhea You may use a fever/pain reducing medication for these symptoms. LET YOUR DOCTOR KNOW IMMEDIATELY IF YOU HAVE DIFFICULTY BREATHING OR SWALLOWING, EXPERIENCE ITCHINGOF FEET OR HANDS, HAVE SWELLING OF EYES, FACE OR INSIDE OF NOSE. documented in this encounter Progress Notes * Javon Scales DO - 04/21/2024 3:37 PM EST SUBJECTIVE: Cedric Sam Jr. is a 88 year old male. 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 He is awaiting medication authorization for Bladder cancer treatment. He continues to follow with Urology at [facility]. Chronic back pain is controlled with Oxycodone. He has new left inguinal pain that hasbeen present for a few days. No falls or trauma. No chest pain or shortness of breath are present. 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) History of nonmelanoma skin cancer Lung nodules Thrombocytopenia (HCC) History of lung cancer 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) Lumbar degenerative disc disease Hypertensive kidney disease with stage 3a chronic kidney disease (HCC) Chronic kidney disease, stage 3a (HCC) Angiokeratoma H/O endovascular stent graft for abdominal aortic aneurysm Malignant neoplasm of overlapping sites of bladder (HCC) Abdominal aortic aneurysm without rupture (HCC) Controlled substance agreement signed Chronic constipation Current Outpatient Medications Medication Sig Dispense Refill Arexvy 120 MCG/0.5ML Intramuscular Suspension Reconstituted (RSV PreF3 Vac Recomb Adjuvanted) Inject 0.5 mL into a large muscle once for 1 dose. 1 Each 0 CO Q 10 10 MG PO CAPS VITAMIN B-6 100 MG PO TABS 200mg three times per week 0 OMEGA 3 1000 MG PO CAPS 1200 mg daily TUMS 500 MG PO CHEW Take by mouth. VITAMIN D3 1000 UNITS PO CAPS Take by mouth daily. fluticasone (FLONASE) 50 MCG/ACT nasal spray Administer 2 Sprays into each nostril daily. 1 Bottle 5 Docusate Sodium 100 MG Oral Capsule One pill by mouth twice a day as needed 60 Cap 11 Multiple Vitamins-Minerals (MULTIVITAMIN ADULT EXTRA C) CHEW 1 Tablet in the morning. senna-docusate (SENOKOT S) 8.6-50 MG per tablet Take 1 Tab by mouth 2 times a day as needed for Constipation. 1 Tab clotrimazole-betamethasone (LOTRISONE) 1-0.05 % cream APPLY TOPICALLY TO RIGHT LEG AREA TWICE DAILY(Patient not taking: Reported on 03/13/2024) 135 g 5 Triamcinolone Acetonide 0.1 % External Lotion (Aristocort) Apply to affected area at groin twice daily as needed 60 mL 2 PreserVision AREDS 2+Multi Vit Oral Capsule Take by mouth 1 Capsule daily . Saline Nasal Windfall 0.65 % Nasal Solution (Lyon) Administer into nostril 2 Sprays in the morning AND 2 Sprays before bedtime. 30 mL 12 Nitroglycerin 0.4 MG Sublingual Tablet Sublingual (Nitrostat) one tab under tongue as needed for chest pain maximum 3 doses 25 Tablet 5 Pravastatin Sodium 20 MG Oral Tablet (Pravachol) TAKE 1 TABLET BY MOUTH ONCE DAILY AT BEDTIME 100 Tablet 3 Ketoconazole 2 % External Shampoo (Nizoral) USE SHAMPOO AT LEAST 3 TIMES PER WEEK, LATHER, WAIT 5 MINUTES THEN RINSE 120 mL 0 Fluocinonide 0.05 % External Solution APPLY SOLUTION TOPICALLY TO AFFECTED AREA OF SCALP NIGHTLY ASNEEDED FOR ITCHING 60 mL 0 Silodosin 4 MG Oral Capsule (Rapaflo) Take 1 Tablet by mouth in the morning. 90 Capsule 3 Amoxicillin 500 MG Oral Capsule (Amoxil) TAKE FOUR CAPSULES BY MOUTH ONE HOUR BEFORE APPOINTMENT 4 Capsule 0 amLODIPine Besylate 2.5 MG Oral Tablet (Norvasc) TAKE 1 TABLET BY MOUTH IN THE MORNING 100 Tablet 1 Atenolol 25 MG Oral Tablet (Tenormin) Take 1 tablet by mouth twice daily 200 Tablet 1 Psyllium 58.6 % Oral Packet (Metamucil) Take 1 Packet by mouth in the morning. Preparation H 0.25-14-74.9 % Rectal Ointment (Preparation H) Administer into the rectum 4 times a day as needed (Hemorrhoids). oxyCODONE HCl 5 MG Oral Tablet (Oxy IR) Take 1 Tablet by mouth every 6 hours as needed for Pain, Severe. 120 Tablet 0 Polyethylene Glycol 3350 17 GM/SCOOP Oral Powder (MiraLax) Take 17 g by mouth in the morning and 17g before bedtime. Take 1 capful daily in the morning.. No current facility-administered medications for this visit. The patient's medication list was reviewed and updated as needed. 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 10/01/10 diverticulosis, IH, EH, 3 polyps--adenomatous tissue, repeat in 5 yea Coronary atherosclerosis cabg 1997 Dyslipidemia, goal to be determined HTN, goal to be determined Lumbar degenerative disc disease 06/22/2019 Other malignant neoplasm of skin, site unspecified Basal Cell CA Past Surgical History: Procedure Laterality Date COLONOSCOPY W/ LESION REMOVAL, SNARE 10/01/10 diverticulosis, IH, EH, 3 polyps--adenomatous tissue, repeat in 5 years COLONOSCOPY, DIAGNOSTIC (RECTUM) 10/23/2015 benign polyps, diverticulosis/[facility] CYSTO/URETERO W/LITHOTRIPSY Right 02/28/2019 CYSTOURETHROSCOPY URETEROSCOPY WITH LITHOTRIPSY AND STENT INSERTION performed by Alen Aguilar MD at OR [facility] CYSTOSCOPY 03-05-2010 CYSTOSCOPY/INSERTION OF STENT Right 12/19/2018 CYSTOURETHROSCOPY WITH INSERTION URETERAL STENT performed by Alen Aguilar MD at OR [facility] CYSTOSCOPY/TREAT LGE BLADDER TUMOR N/A 10/07/2018 CYSTOURETHROSCOPY WITH FULGURATION LARGE BLADDER TUMOR performed by Alen Aguilar MD at OR [facility] CYSTOSCOPY/TREAT LGE BLADDER TUMOR N/A 05/22/2021 CYSTOURETHROSCOPY WITH FULGURATION LARGE BLADDER TUMOR performed by Alysa Valente MD at OR [facility] CYSTOSCOPY/TREAT SML BLADDER TUMOR N/A 03/13/2024 CYSTOURETHROSCOPY WITH FULGURATION SMALL BLADDER TUMOR performed by Jose Lisa MD atOR [facility] CYSTOURETERO W/BIOPSY Right 12/19/2018 CYSTOURETHROSCOPY URETEROSCOPY WITH BIOPSY AND OR FULGURATION LESION performed by Alen Aguilar MD at OR [facility] CYSTOURETERO W/BIOPSY N/A 02/28/2019 CYSTOURETHROSCOPY URETEROSCOPY WITH BIOPSY AND OR FULGURATION LESION performed by Alen Aguilar MD at OR [facility] CYSTOURETERO W/BIOPSY Bilateral 09/21/2019 CYSTOURETHROSCOPY URETEROSCOPY WITH BIOPSY AND OR FULGURATION LESION performed by Alysa Valente MD at OR [facility] CYSTOURETHROSCOPY W/BIOPSY N/A 05/22/2021 CYSTOURETHROSCOPY WITH BIOPSY performed by Alysa Valente MD at OR [facility] ENDOVASC ABDO REPR W/BI DEVICE N/A 03/29/2017 ENDOVASCULAR REPAIR ABDOMINAL AORTIC ANEURYSM BIF PROS 1 LIMB performed by Lisa Emerson MD at OR [facility] FLUORO PYELOGRAM RETROGRADE Left 02/28/2019 UROGRAHY, RETROGRADE, WITH OR WITHOUT KUB performed by Alen Aguilar MD at OR [facility] FLUORO PYELOGRAM RETROGRADE Bilateral 09/21/2019 UROGRAHY, RETROGRADE, WITH OR WITHOUT KUB performed by Alysa Valente MD at OR [facility] INFORMATION open heart surgery [facility] INFORMATION 07/1999 bladder [facility] danella INFORMATION 03/29/2017 model# FTL97-74/116-40 AFX Endovascular AAA Stent Graft Extension INFORMATION 03/29/2017 model# A25-25/Z51-C97T AFX Endovascular AAA Stent Limb Extension INJECT DX/THER SUBSTANCE INTERLAMINAR LUMBAR/SACRAL W IMAGE GUIDE 05/25/2019 INJECTION SPINE LUMBAR OR SACRAL performed by Spencer Maribel Gil, DO at OR [facility] INJECT DX/THER SUBSTANCE INTERLAMINAR LUMBAR/SACRAL W IMAGE GUIDE 06/22/2019 INJECTION SPINE LUMBAR OR SACRAL performed by Michel Gil, DO at OR [facility] INJECT DX/THER SUBSTANCE INTERLAMINAR LUMBAR/SACRAL W IMAGE GUIDE 02/01/2020 INJECTION SPINE LUMBAR OR SACRAL performed by Spencer Davide Gil, DO at OR [facility] IOF CT GUIDED NEEDLE BIOPSY 03/06/2011 CT GUIDED NEEDLE ASPIRATION BIOPSY performed by DUDLEY WARNER at RADIOLOGY [facility] IR ENDOVASCULAR REPAIR ILIAC 04/17/04 right common iliac aneurysm stent graft repair, right hypogastric embolization, Dr. 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 Noel REMOVAL OF TONSILS, UNDER AGE 12 Tonsils Removal,<12 Y/O Review of patient's allergies indicates: Allergen Reactions Flomax [Tamsulosin Hcl] Other (Please comment) collapse Lisinopril Other (Please comment) Caused pt to have blurred vision and become very flushed Ciprofloxacin Nausea/vomiting Stomach upset Finasteride Other (Please comment) Enlarged breast tissue Levaquin [Levofloxacin] Other (Please comment) Hx of achilles tendon tear Lipitor [Atorvastatin] Abdominal pain Zocor [Simvastatin] Abdominal pain Review of Systems Constitutional: Positive for appetite change. Negative for fatigue and unexpected weight change. HENT: Negative for congestion, sore throat and trouble swallowing. Respiratory: Negative for cough, shortness of breath and wheezing. Cardiovascular: Negative for chest pain, palpitations and leg swelling. Gastrointestinal: Positive for abdominal pain. Negative for blood in stool, constipation, diarrhea,nausea and vomiting. Genitourinary: Negative for dysuria, frequency and hematuria. Musculoskeletal: Positive for arthralgias, back pain and gait problem. Neurological: Negative for dizziness, syncope and headaches. Psychiatric/Behavioral: Negative for confusion, decreased concentration and sleep disturbance. OBJECTIVE: BP 120/62 | Pulse 84 | Temp 36.7 C (98.1 F) | Resp 98 | Ht 1.676 m (5' 6") | Wt 60.2 kg (132 lb12.8 oz) | BMI 21.43 kg/m | BSA 1.67 m Physical Exam Vitals and nursing note reviewed. Constitutional: General: He is not in acute distress. Appearance: He is not toxic-appearing. Comments: Frail and elderly HENT: Head: Normocephalic and atraumatic. Cardiovascular: Rate and Rhythm: Normal rate and regular rhythm. Heart sounds: Normal heart sounds. No murmur heard. No gallop. Pulmonary: Effort: Pulmonary effort is normal. Breath sounds: Normal breath sounds. No wheezing, rhonchi or rales. Abdominal: General: Bowel sounds are normal. There is no distension. Palpations: Abdomen is soft. Tenderness: There is no abdominal tenderness. Hernia: A hernia is present. Hernia is present in the left inguinal area. Musculoskeletal: Right lower leg: No edema. Left lower leg: No edema. Neurological: Mental Status: He is oriented to person, place, and time. Mental status is at baseline. Motor: No weakness. Gait: Gait normal. Psychiatric: Mood and Affect: Mood normal. Behavior: Behavior normal. Thought Content: Thought content normal. 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) Left inguinal hernia - US ABDOMEN LIMITED; Future; Expected date: 04/21/2024 Degeneration of intervertebral disc of lumbar region with discogenic back pain Continue Oxycodone Hypertensive kidney disease with stage 3a chronic kidney disease (HCC) Continue Amlodipine, and Atenolol H/O endovascular stent graft for abdominal aortic aneurysm Chronic constipation Continue Miralax Need for pneumococcal vaccination - PNEUMOCOCCAL VACC, PCV20, IM ([id number]) Need for RSV vaccination - RSV VAC., RECOMB, ADJUVANT, PF,0.5 ML (AREXVY) - Arexvy 120 MCG/0.5ML Intramuscular Suspension Reconstituted (RSV PreF3 Vac Recomb Adjuvanted); Inject 0.5 mL into a large muscle once for 1 dose. Follow Up: Return in about 3 months (around 07/22/2024), or if symptoms worsen or fail to improve. Javon Scales DO 3:37 PM 04/21/2024 documented in this encounter Nursing Notes * Kelli Mota LPN - 04/21/2024 2:26 PM EST Here for follow up, complaining of left groin pain. documented in this encounter Plan of Treatment Upcoming Encounters Date Type Department Care Team (Late st Contact Info) Description 04/24/2024 11:00 AM EST Imaging Radiology [facility] [address] [facility] [place] [id number] 07/25/2024 12:30 PM EST Imaging Radiology [facility] [place] [address] [facility] [place] [address] 07/28/2024 1:00 PM EST Procedure Only Urology, [place] [address] [place] [facility] [place] [address] Jose Lisa MD [address] [place] [address] 07/31/2024 2:20 PM EST Office Visit Family Practice [address] [place] [address] [address] [place] [address] Javon Scales DO [address] [place] [address] 08/08/2024 3:00 PM EST Office Visit Hematology/Oncology [facility] [address] [facility] [id number] Martir Lazar MD [address] [place] [address] 09/05/2024 4:00 PM EDT Office Visit Cardiology, [facility] [address] [place] [address] Sridhar Fay MD [address] [place] [address] 09/26/2024 11:00 AM EDT Nurse Only Family Practice [address] [place] [address] [address] [place] [address] Kelli Steele, ANIA [address] [place] [address] 10/23/2024 2:00 PM EDT Office Visit Gastroenterology, [facility] [address] [facility] [place] [address] Makayla Moody CRNP [address] [facility] [address] Pending Results Name Type Priority Associated Diagnoses Date /Time XR HIP UNILAT 2-3 VIEWS INCLUDING AP PELVIS Medical Imaging Routine Hip pain, left 04/21/2024 3:41 PM EST Scheduled Orders Name Type Priority Associated Diagnoses Orde r Schedule US ABDOMEN LIMITED Medical Imaging Routine Left inguinal hernia Expected: 04/21/2024, Expires: 05/21/2025 Health Maintenance Due Date Last Done Comments CKD PHOS USE SMARTSET 28265 07/27/2024 02, 02/25/2022, 01/29/2021 Adult Wellness Visit 09/20/2024 09/21/2023, 01/30/2022, 01/29/2021 Depression Screening 09/20/2024 09/21/2023 Albumin/Creatinine Ratio 03/02/2025 024, 04/26/2023, 07/13/2022, Additional history exists CKD HGB USE SMARTSET 58196 03/11/202503/11, 03/11/2024, 03/10/2024, Additional history exists DTap/Tdap [...] this encounter Medical Devices Implanted Type Area School Plant Consultant Device Identifier Shelf Expiration Date Model / Serial / Lot Bifurcated Endograft Implanted:Qty: 1 on 03/29/2017 by Lisa Emerson MD at [facility] N/A: Aorta ENDOLOGIX 01/13/2018 [id number] / [id number] / Proximal Endograft Implanted:Qty: 1 on 03/29/2017 by Lisa Emerson MD at OR [facility] N/A: Aorta ENDOLOGIX 01/16/2020 [id number] / [id number] / documented as of this encounter Visit Diagnoses Diagnosis Atherosclerosis of [place] coronary artery of [place] heart without angina pectoris- Primary Malignant neoplasm of overlapping sites of bladder (HCC) Malignant neoplasm of other specified sites of bladder 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 Other drug allergy DYSLIPIDEMIA, GOAL LDL BELOW 100 Other and unspecified hyperlipidemia Hip pain, left Pain in joint, pelvic region and thigh Benign prostatic hyperplasia with urinary retention Lung nodules Other nonspecific abnormal finding of lung field Thrombocytopenia (HCC) Thrombocytopenia, unspecified 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) Polyneuropathy in other diseases classified elsewhere Left inguinal hernia Inguinal hernia without mention of obstruction or gangrene, unilateral or unspecified, (not specified as recurrent) Degeneration of intervertebral disc of lumbar region with discogenic back pain Hypertensive kidney disease with stage 3a chronic kidney disease (HCC) H/O endovascular stent graft for abdominal aortic aneurysm Blood vessel replaced by other means Chronic constipation Unspecified constipation Need for pneumococcal vaccination Need for prophylactic vaccination against streptococcus pneumoniae (pneumococcus) Need for RSV vaccination Need for prophylactic vaccination and inoculation against respiratory syncytial virus documented in this encounter Advance Directives * Full Code (Latest Code Status on File) Date Activated Date Inactivated Comments 03/29/2017 2:46 PM 03/31/2017 3:33 PM This order reflects the patients wishes and were consensually agreed upon. Care Teams Tool Engineer Relationship Specialty Start Date End Date Javon Scales DO [address] [place] [address] PCP - General Internal Medicine 11/19/23 documented as of this encounter
--- OUTSIDE RECORDS SUMMARY | 2024-05-15 18:53 | External Medical Summary | Summary of Care ---
Author Name Unknown Organization [facility] Address [address] [facility] [address] Phone [phone] Care Team Providers Care Sliver Lap Machine Tender Name Role Phone MitchclaraJavon DO Primary Care Provider Reason for Referral * Precert (Within 10 days (routine)) - Authorized Specialty Diagnoses / Procedures Referred By Contlaura t Referred To Contact Radiology Diagnoses History of lung cancer Lung nodules History of bladder cancer Encounter for follow-up examination after completed treatment for malignant neoplasm Procedures CT CHEST WO CONTRAST Martir Lazar MD [address] [place] [address] Phone: tel: fax: Referral ID Status Reason Start Date Expiration Date V isits Requested Visits Authorized [id number] Authorized 04/20/[phone] Reason for Visit * Reason Onset Date Comments Advice 04/19/2024 LAUREN Encounter Details Date Type Department Care Team (Late st Contact Info) Description 04/19/2024 Telephone Hematology/Oncology Rajinder Owens [place] [address] [facility] [place] [address] Services, Scheduling [address] [place] [address] Advice (LAUREN) Allergies Active Allergy Reactions Criticality [...] S) 8.6-50 MG per tabletIndications :Drug induced constipation,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 Active Saline Nasal [place] 0.65 % Nasal Solution ([place])Indication s:Epistaxis Administer into nostril 2 Sprays in the morning AND 2 Sprays before bedtime. 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 one tab under [...] (Tenormin)Indicat ions:HTN, goal below 140/90,Atheroscle rosis of ambler coronary artery of ambler heart without angina pectoris Take 1 tablet [...] CORONARY ATHEROSCLEROSIS OF UNSPECIFIED TYPE OF VESSEL, [place] OR GRAFT History of bladder cancer documented [...] stent and embolization 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/10 [facility] [place]/09:1 month s/p reintervention for his R [...] mRNA, LNP-s, No Pre serve, 2-Dose Series ([employer]) 04/24/2021,09/06/2020,08/09/2020 COVID-19, MRNA-LNP, PF, 30 M CG/0.3 mL, 12 YRS AND ABOVE, IM ([employer]-ComirnatFive Cool) 03/20/2024 Covid-19, Mrna, Lnp-s, Pf, B ivalent, [...] No 04/26/2023 Does the household have a [facility] source of income? (Household - for ages [...] EST Office Visit Family Practice [address] [facility] [address] [place] [address] Javon Scales DO [address] [place] [address] 07/25/2024 12:30 PM EST Imaging Radiology [facility] [address] [facility] [place] [address] 07/28/2024 1:00 PM EST Procedure Only Urology, [place] [address] [place] [address] Jose Lisa MD [address] [place] [address] 08/08/2024 3:00 PM EST Office Visit Hematology/Oncology [facility] [address] [place] [phone] Martir Lazar MD [address] [place] [address] 09/05/2024 4:00 PM EDT Office Visit Cardiology, [facility] [address] [facility] [place] [address] Sridhar Fay MD 132 [place] [address] 09/26/2024 11:00 AM EDT Nurse Only Family Practice [address] [place] [address] [address] [place] [address] Kelli Steele RN [address] [place] [phone] 10/23/2024 2:00 PM EDT Office Visit Gastroenterology, [facility] [address] [facility] [place] [address] Makayla Moody CRNP [address] [facility] [address] Scheduled Orders Name Type Priority Associated Diagnoses Orde r Schedule CT CHEST WO CONTRAST Medical Imaging Routine History of lung cancer Lung nodules History of bladder cancer Encounter for follow-up examination after completed treatment for malignant neoplasm Expected: 04/20/2024, Expires: 04/20/2025 Health Maintenance Due Date Last Done Comments CKD PHOS USE SMARTSET 63086 07/27/202407/09, 02/25/2022, 01/29/2021 Adult Wellness Visit 09/20/2024 09/21/2023, 01/30/2022, 01/29/2021 Depression Screening 09/20/2024 09/21/2023 Albumin/Creatinine Ratio 03/02/2025 024, 04/26/2023, 07/13/2022, Additional history exists CKD HGB USE SMARTSET 30091 03/11/202503/11, 03/11/2024, 03/10/2024, Additional history exists DTap/Tdap [...] this encounter Medical Devices Implanted Type Area Payroll Processor Device Identifier Shelf Expiration Date Model / Serial / Lot Bifurcated Endograft Implanted:Qty: 1 on 03/29/2017 by Lisa Emerson MD at [place] [facility] [place]/A: Aorta ENDOLOGIX 01/13/2018 [id number] 6-40 / [id number] / Proximal Endograft Implanted:Qty: 1 on 03/29/2017 by Lisa Emerson MD at [place] [facility] [place] N/A: Aorta ENDOLOGIX 01/16/2020 [id number]/[id number] / [id number] / documented as of this encounter Visit [...] and were consensually agreed upon. Care Teams Sliver Lap Machine Tender Relationship Specialty Start Date End Date Javon Scales DO [address] [place] [address] PCP - General Internal Medicine 11/19/23 documented as of this encounter
--- OUTSIDE RECORDS SUMMARY | 2024-05-15 18:54 | External Medical Summary | Summary of Care ---
Author Name Unknown Organization [facility] Address [address] [place] [address] Phone [phone] Care Team Providers Care Finger Grip Machine Operator Name Role Phone Javon Scales DO Primary Care Provider [phone] Reason for Visit * Reason Onset Date Comments Advice 04/11/2024 results Encounter Details Date Type Department Care Team (Late st Contact Info) Description 04/11/2024 Telephone Family Practice [address] [facility] [place] [address] [place] [phone] Javon Scales DO [address] [place] [address] Advice (results) Allergies Active Allergy Reactions Criticality Noted Date [...] as of this encounter (statuses as of 04/12/2024) Medications Medication Sig Dispensed Refills Start Date End Date Status CO Q 10 10 MG PO CAPS Active VITAMIN B-6 100 MG PO TABS 200mg three times per week 0 12/12/2007 Active OMEGA 3 1000 MG PO CAPS 1200 mg daily Active TUMS 500 MG PO CHEW Take by mouth. A ctive VITAMIN D3 1000 UNITS PO CAPS Take by mouth daily. 06/14/2013 Active fluticasone (FLONASE) 50 MCG/ACT nasal sprayIndications:Bala nchitis Administer 2 Sprays into each nostril daily. 1 Bottle 5 08/09/2015 Active Docusate Sodium 100 MG Oral Capsule One pill by mouth twice a day as needed 60 Cap 11 06/28/2017 Active Multiple Vitamins-Minerals (MULTIVITAMIN ADULT EXTRA C) CHEW 1 Tablet in the morning. 10/09/2018 Active senna-docusate (SENOKOT S) 8.6-50 MG per tabletIndications:Dr potter induced constipation,Chronic bilateral low back pain with bilateral sciatica Take 1 Tab by mouth 2 times a day as needed for Constipation. 1 Tab 05/29/2019 Active clotrimazole-betamet hasone (LOTRISONE) 1-0.05 % cream APPLY TOPICALLY TO RIGHT LEG AREA TWICE DAILY 135 g 5 10/19/2019 Active Additional Information Patient not taking.Informant: Patient, Reported on 03/13/2024 Triamcinolone Acetonide 0.1 % External Lotion (Aristocort) Apply to affected area at groin twice daily as needed 60 mL 2 02/27/2021 Active PreserVision AREDS 2+Multi Vit Oral Capsule Take by mouth 1 Capsule daily . Active Saline Nasal [place] 0.65 % Nasal Solution ([place])Indications:E pistaxis Administer into nostril 2 Sprays in the morning AND 2 Sprays before bedtime. 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 one tab under tongue as needed for chest pain maximum 3 doses 25 Tablet 5 09/23/2021 Active Pravastatin Sodium 20 MG Oral Tablet (Pravachol)Indicatio ns:Dyslipidemia, goal LDL below 100 TAKE 1 TABLET BY MOUTH ONCE DAILY AT BEDTIME 100 Tablet 3 06/10/2022 Active Ketoconazole 2 % External Shampoo (Nizoral)Indications :Scalp pruritus USE SHAMPOO AT LEAST 3 TIMES PER WEEK, LATHER, WAIT 5 MINUTES THEN RINSE 120 mL 08/14/2022 Active Fluocinonide 0.05 % External SolutionIndications: Scalp pruritus APPLY SOLUTION TOPICALLY TO AFFECTED AREA OF SCALP NIGHTLY NEEDED FOR ITCHING 60 mL 08/14/2022 Active Silodosin 4 MG Oral Capsule (Rapaflo) Take 1 Tablet by mouth in the morning. 90 Capsule 3 09/21/2023 Active Amoxicillin 500 MG Oral Capsule (Amoxil) TAKE FOUR CAPSULES BY MOUTH ONE HOUR BEFORE APPOINTMENT 4 Capsule 12/27/2023 Active amLODIPine Besylate 2.5 MG Oral Tablet (Norvasc)Indications :HTN, goal below 140/90 TAKE 1 TABLET BY MOUTH IN THE MORNING 100 Tablet 1 01/18/2024 Active Atenolol 25 MG Oral Tablet (Tenormin)Indication s:HTN, goal below 140/90,Atheroscleros is of prairie band coronary artery of prairie band heart without angina pectoris Take 1 tablet by mouth twice daily 200 Tablet 1 02/08/2024 Active Psyllium 58.6 % Oral Packet (Metamucil) Take 1 Packet by mouth in the morning. 03/02/2024 Active Preparation H 0.25-14-74.9 % Rectal Ointment (Preparation H) Administer into the rectum 4 times a day as needed (Hemorrhoids). 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 120 Tablet 03/27/2024 Active Polyethylene Glycol 3350 17 GM/SCOOP Oral Powder (MiraLax)Indications :Chronic constipation,Hemorrh oids, external without complications Take 17 g by mouth in the morning and 17 g before bedtime. Take 1 capful daily in the morning.. 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 HTN, GOAL BELOW 140/90 04/25/2009 Overview: Modified per HTN protocol #16. Old myocardial infarct 12/12/2007 Overview: Anterior inferior RORY inhibitor intolerance 08/11/2007 Overview: Visual disturbance Macular degeneration 11/19/2006 Overview: Dr hein 11/17/2006 Hemangioma of other sites 05/04/2003 Overview: liver- seen on U/s 2002- stable/asymptomatic 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 CORONARY ATHEROSCLEROSIS OF UNSPECIFIED TYPE OF VESSEL, [place] OR GRAFT History of bladder cancer documented as of this encounter (statuses as of 04/12/2024) Resolved Problems Problem Noted Date Diagnosed Date [...] NODULE 04/01/2009 ADVANCE DIRECTIVE INFORMATION 02/04/2009 12/30/2016 Overview: No, Advance Directive brochure given to patient at prior appointment. 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 9 Malignant neoplasm of skin 0 08/02/2017 Overview: ICD-10 update of inactive term Aneurysm 09/20/2008 Overview: Illiac artery documented as of this encounter (statuses as of 04/12/2024) Immunizations Name Administration Dates Next Due COVID-19 mRNA, LNP-s, No Pre serve, 2-Dose Series (Findline) 04/24/2021,09/06/2020,08/09/2020 COVID-19, MRNA-LNP, PF, 30 M CG/0.3 mL, 12 YRS AND ABOVE, IM (Visionary Fun-Comirnaty) 03/20/2024 Covid-19, Mrna, Lnp-s, Pf, B ivalent, 30 Mcg, IM, 12 yrs and above (Findline) 05/19/2022 H1N1 2009 Influenza, IM 05/28/2009 Influenza, [...] Assigned at Male 10/26/2018 11:36 AM EDT Gender Identity Male 10/26/2018 11:36 AM EDT Sexual Orientation Straight 10/26/2018 11 :36 AM EDT Job Start Date Occupation Industry Not on file Not on file Not on file documented as of this encounter Functional Status Functional Status Response Date of Assess ment Are you deaf or do you have serious difficulty h earing? No 03/29/2017 Are you blind or do you have serious difficulty seeing, even when wearing glasses? No 03/29/2017 Do you have serious difficul ty walking or climbing stairs? (5 years old or older) No 03/29/2017 Do you have difficulty dress ing or bathing? (5 years old or older) No 03/29/2017 Because of a physical, menta l, or emotional condition, do you have difficulty doing errands alone such as visiting a doctor s office or shopping? (15 years old or older) No 03/29/20 17 Cognitive Status Response Date of Assessm ent Because of a physical, menta l, or emotional condition, do you have serious difficulty concentrating, remembering, or making decisions? (5 years old or older) No 03/29/2017 documented as of this encounter Miscellaneous Notes * Telephone Encounter - Kelli Mota LPN - 04/12/2024 1:42 PM EST Spoke to daughter, aware and will comply. Thank you * Telephone Encounter - Javon Scales DO - 04/12/2024 1:01 PM EST No new pulmonary nodule present on CT. Stable pulmonary nodules. Liver nodule was present on previous imaging as well no abnormal uptake present in liver lesion on PET/ CT done 07/14/2021. Continue to follow with Oncology and Urology as scheduled. * Telephone Encounter - Kelli Mota LPN - 04/11/2024 1:06 PM EST What can I offer to patient * Telephone Encounter - Christa Paredes OSA - 04/11/2024 12:26 PM EST Has a chest scan and they found something on lung Daughter has questions documented in this encounter Plan of Treatment Upcoming Encounters Date Type Department Care Team (Late st Contact Info) Description 04/21/2024 2:20 PM EST Office Visit Family Practice 65 [facility] [address] [place] [phone] Javon Scales, [address] [place] [address] 05/03/2024 1:45 PM EST Office Visit Urology, [place] [address] [place] [address] Baudilio Rosas MD [address] [place] [address] 07/28/2024 1:00 PM EST Procedure Only Urology, [place] [address] [place] [address] Jose Lisa MD [address] [place] [address] 08/08/2024 3:00 PM EST Office Visit Hematology/Oncology [facility] [address] [facility] [place] [phone] Martir Lazar MD [address] [facility] [place] [address] 09/05/2024 4:00 PM EDT Office Visit Cardiology, [facility] [address] [place] [address] Sridhar Fay MD 132 [facility] [place] [address] 09/26/2024 11:00 AM EDT Nurse Only Family Practice [address] [place] [address] [address] [place] [phone] Kelli Steele, ANIA [address] [facility] [place] [phone] Health Maintenance Due Date Last Done Comments CKD PHOS USE SMARTSET 47818 07/27/202407/09, 02/25/2022, 01/29/2021 Adult Wellness Visit 09/20/2024 09/21/2023, 01/30/2022, 01/29/2021 Depression Screening 09/20/2024 09/21/2023 Albumin/Creatinine Ratio 03/02/2025 024, 04/26/2023, 07/13/2022, Additional history exists CKD HGB USE SMARTSET 43178 03/11/202503/11, 03/11/2024, 03/10/2024, Additional history exists DTap/Tdap [...] this encounter Medical Devices Implanted Type Area Web Coordinator Device Identifier Shelf Expiration Date Model / Serial / Lot Bifurcated Endograft Implanted:Qty: 1 on 03/29/2017 by Lisa Emerson MD at [place] [facility] [place] N/A: Aorta ENDOLOGIX 01/13/2018 [id number] [id number] / [id number] / Proximal Endograft Implanted:Qty: 1 on 03/29/2017 by Lisa Emerson MD at [place] [facility] [place] N/A: Aorta ENDOLOGIX 01/16/2020 A25-25/C75- [id number] / [id number] / documented as of this encounter Advance Directives * Full Code (Latest Code Status on File) Date Activated Date Inactivated Comments 03/29/2017 2:46 PM 03/31/2017 3:33 PM This order reflects the patients wishes and were consensually agreed upon. Care Teams Finger Grip Machine Operator Relationship Specialty Start Date End Date Javon Scales DO [address] [facility] [place] [address] PCP - General Internal Medicine 11/19/23 documented as of this encounter
--- OUTSIDE RECORDS SUMMARY | 2024-05-15 18:54 | External Medical Summary | Summary of Care ---
Author Name Unknown Organization [facility] Address [address] [place] [address] Phone [phone] Care Team Providers Care Line Out Man Name Role Phone Javon Scales Primary Care Provider [phone] Reason for Visit * Reason Comments Post-Op Encounter Details Date Type Department Care Team (Late st Contact Info) Description 03/30/2024 11:00 AM EDT Office Visit Urology, [place] [address] [place] [address] Jose Lisa MD [address] [place] [address] Malignant neoplasm of overlapping sites [...] as of this encounter (statuses as of 03/30/2024) Medications Medication Sig Dispensed Refills Start Date [...] 06/14/2013 Active fluticasone (FLONASE) 50 MCG/ACT nasal sprayIndications:Br onchitis Administer 2 Sprays into each nostril daily. 1 Bottle 5 08/09/2015 Active Docusate Sodium 100 MG Oral Capsule One pill by mouth twice a day as needed 60 Cap 11 06/28/2017 Active Multiple Vitamins-Minerals (MULTIVITAMIN ADULT EXTRA C) CHEW 1 Tablet in the morning. 10/09/2018 Active senna-docusate (SENOKOT S) 8.6-50 MG per tabletIndications:D rug induced constipation,Chroni c bilateral low back pain with bilateral sciatica Take 1 Tab by mouth 2 times a day as needed for Constipation. 1 Tab 05/29/2019 Active clotrimazole-betame thasone (LOTRISONE) 1-0.05 % cream APPLY TOPICALLY TO RIGHT LEG AREA TWICE DAILY 135 g 5 10/19/2019 Active Additional Information Patient not taking.Informant: Patient, Reported on 03/13/2024 Triamcinolone Acetonide 0.1 % External Lotion (Aristocort) Apply to affected area at groin twice daily as needed 60 mL 2 02/27/2021 Active Additional Information Patient not taking.Informant: Patient, Reported on 03/13/2024 PreserVision AREDS 2+Multi Vit Oral Capsule Take by mouth 1 Capsule daily . Active Saline Nasal [place] 0.65 % Nasal Solution ([place])Indications: Epistaxis Administer into nostril 2 Sprays in the morning AND 2 Sprays before bedtime. 30 mL 12 07/29/2021 Active Nitroglycerin 0.4 MG Sublingual Tablet Sublingual (Nitrostat)Indicati ons:Atherosclerosis of [place] coronary artery of [place] heart without angina pectoris one tab under tongue as needed for chest pain maximum 3 doses 25 Tablet 5 09/23/2021 Active Pravastatin Sodium 20 MG Oral Tablet (Pravachol)Indicati ons:Dyslipidemia, goal LDL below 100 TAKE 1 TABLET BY MOUTH ONCE DAILY AT BEDTIME 100 Tablet 3 06/10/2022 Active Ketoconazole 2 % External Shampoo (Nizoral)Indication s:Scalp pruritus USE SHAMPOO AT LEAST 3 TIMES PER WEEK, LATHER, WAIT 5 MINUTES THEN RINSE 120 mL 08/14/2022 Active Fluocinonide 0.05 % External SolutionIndications :Scalp pruritus APPLY SOLUTION TOPICALLY TO AFFECTED AREA OF SCALP NIGHTLY NEEDED FOR ITCHING 60 mL 08/14/2022 Active Silodosin 4 MG Oral Capsule (Rapaflo) Take 1 Tablet by mouth in the morning. 90 Capsule 3 09/21/2023 Active Amoxicillin 500 MG Oral Capsule (Amoxil) TAKE FOUR CAPSULES BY MOUTH ONE HOUR BEFORE APPOINTMENT 4 Capsule 12/27/2023 Active amLODIPine Besylate 2.5 MG Oral Tablet (Norvasc)Indication s:HTN, goal below 140/90 TAKE 1 TABLET BY MOUTH IN THE MORNING 100 Tablet 1 01/18/2024 Active Atenolol 25 MG Oral Tablet (Tenormin)Indicatio ns:HTN, goal below 140/90,Atherosclero sis of [place] coronary artery of [place] heart without angina pectoris Take 1 tablet by mouth twice daily 200 Tablet 1 02/08/2024 Active Polyethylene Glycol 3350 17 GM/SCOOP Oral Powder (MiraLax)Indication s:Other constipation Take 17 g by mouth in the morning. Take 1 capful daily in the morning.. 03/02/2024 Active Psyllium 58.6 % Oral Packet (Metamucil) Take 1 Packet by mouth in the morning. 03/02/2024 Active Preparation H 0.25-14-74.9 % Rectal Ointment (Preparation H) Administer into the rectum 4 times a day as needed (Hemorrhoids). 03/02/2024 Active oxyCODONE HCl 5 MG Oral Tablet (Oxy IR)Indications:Chicken Tender shawn midline thoracic back pain,Chronic left-sided low back pain without sciatica,Spinal stenosis of lumbar region at multiple levels Take 1 Tablet by mouth every 6 hours as needed for Pain, Severe. 120 Tablet 03/27/2024 Active documented as of this encounter (statuses as of 03/30/2024) Active Problems Problem Noted Date Diagnosed Date Controlled substance agreement signed 01/12/2023 Malignant neoplasm [...] CORONARY ATHEROSCLEROSIS OF UNSPECIFIED TYPE OF VESSEL, [place] OR GRAFT History of bladder cancer documented as of this encounter (statuses as of 03/30/2024) Resolved Problems Problem Noted Date Diagnosed Date [...] stent and embolization 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/10 [facility] 3/05:1 month s/p reintervention for his R common [...] as of this encounter (statuses as of 03/30/2024) Immunizations Name Administration Dates Next Due COVID-19 mRNA, LNP-s, No Pre serve, 2-Dose Series ([employer]) 04/24/2021,09/06/2020,08/09/2020 COVID-19, MRNA-LNP, 24-25, P R, 30MCG/0.3ML, IM, 12YRS AND ABOVE ([employer] App-Comirnat) 03/20/2024 Covid-19, Mrna, Lnp-s, Pf, B ivalent, 30 Mcg, IM, 12 yrs and above ([employer] App) 05/19/2022 H1N1 2009 Influenza, IM 05/28/2009 Influenza, [...] Sign Reading Time Taken Comments Blood Pressure 124/66 03/30/2024 10:54 AM EDT Pulse - - Temperature 35.7 C (96.3 F) 03/30/2024 10:54 AM E DT Respiratory Rate - - Oxygen Saturation - - Inhaled Oxygen Concentration - - Weight - - Height - - Body Mass Index - - documented in this encounter Functional Status Functional Status Response [...] No 03/29/2017 documented as of this encounter Progress Notes * Jose Lisa MD - 03/30/2024 12:00 PM EDT Urology Return Patient Visit Chief Complaint: Follow-up for bladder cancer HPI: Cedric Sam Jr. 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 He subsequently developed a right ureteral stricture. 01/24/19 - R stent removal and R retrograde pyelogram, found to have an "apple core lesion" in the right distal ureter 02/28/19 - R URS and TURBT 02/28/19. Ureteroscopy negative, path from bladder and right ureter negative. Right renal pelvis cytology negative. Reportedly received BCG in Mar 2019 however no specific documentation found. 04/03/19 - CT A/P with IV and oral contrast: R sided JJ ureteral stent in place, no evidence of extrinsic compression, mild thickening of right distal ureter. 08/04/19: renal U/S showed persistently dilated proximal right ureter 08/11/19: cystoscopy was negative, but cytology came back positive for high grade UC 09/21/19: underwent cystoscopy , bilateral RGPG, left ureteroscopy, bilateral ureteral stent placement, bladder biopsies, transurethral resection of prostate for biopsies, and selective cytologies. Path showed CIS at bladder neck, cytology from voided urine and bladder barbotage with HG for UC. Leftand right renal pelvis washing negative for HG UC. 10/13/19-11/17/19: induction BCG 11/23/19: had CTA and no hydronephrosis 01/12/20: Surveillance cysto negative and cytology benign 04/19/20: Surveillance cysto negative and cytology benign 07/26/20: Surveillance cysto negative and cytology atypical 11/15/20: Surveillance cysto negative and cytology atypical 02/07/21: Surveillance cysto negative and cytology benign 05/13/21: Surveillance cystoscopy showed some erythema on posterior wall. Cytology was atypical. 05/22/21: underwent cystoscopy, bladder biopsies and fulguration. Path was suspicious for CIS and Ta high grade. 07/10/21-08/14/21: second induction BCG 09/19/21: cystology and cystoscopy negative 10/2021 - completed maintenance BCG #1 01/2022 - cysto negative 02/2022 - completed maintenance BCG #2 05/2022 - cysto negative 10/2022 - cysto negative 06/2023 - cysto negative, atypical cytology 01/2024 - cysto negative, cytology + HG UC Due to the positive cytology he underwent TURBT in 03/2024. He was found to have a 1 cm area of cobblestoning and erythema of the posterior wall. Pathology showed focal urothelial CIS. He recovered well from the procedure. 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 10/01/10 diverticulosis, IH, EH, 3 polyps--adenomatous tissue, repeat in 5 yea Coronary atherosclerosis cabg 1997 Dyslipidemia, goal to be determined HTN, goal to be determined Lumbar degenerative disc disease 06/22/2019 Other malignant neoplasm of skin, site unspecified Basal Cell CA Physical Exam BP 124/66 (BP Site: Right Arm, BP Position: Sitting, BP Cuff Size: Regular) | Temp 35.7 C (96.3 F) (Tympanic) GEN: elderly male CV: extremities warm and well perfused, no cyanosis Resp: unlabored respirations, normal respiratory rate, no audible wheezing GI: abdomen soft, non-tender, non-distended : no suprapubic fullness Labs Reviewed Imaging: Reviewed Assessment and Plan: This is a 88 year old male with 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 I reviewed the pathology with the patient and his family. I discussed the 2 options are surveillance with TURBT and fulguration as needed, or to consider intravesical Adstilladrin. He is a good candidate for his children, and we discussed the risks and benefits. He and his family would like to proceed. We will schedule in 2-3 weeks. Cystoscopy with me in 3-4 months. Jose Lisa MD FACS documented in this encounter Plan of Treatment Upcoming Encounters Date Type Department Care Team (Late st Contact Info) Description 04/06/2024 11:00 AM EDT Office Visit Gastroenterology, [facility] [address] [place] [address] Makayla Moody CRNP [address] [place] [address] 04/21/2024 2:20 PM EST Office Visit Family Practice [address] [place] [address] [address] [place] [address] Javon Scales DO [address] [place] [address] 05/03/2024 1:45 PM EST Office Visit Urology, [place] [address] [place] [address] Baudilio Rosas MD [address] [place] [address] 07/28/2024 1:00 PM EST Procedure Only Urology, [place] [address] [place] [address] Jose Lisa MD [address], [place] [id number] 08/08/2024 2:45 PM EST Office Visit Hematology/Oncology [facility] [address] [place] [phone] Martir Lazar MD [address] [place] [address] 09/05/2024 4:00 PM EDT Office Visit Cardiology, [facility] [address] [place] [address] Sridhar Fay MD [address] [place] [address] 09/26/2024 11:00 AM EDT Nurse Only Family Practice [address] [place] [address] [address] [place] [address] Kelli Steele RN [address] [place] [address] Health Maintenance Due Date Last Done Comments CKD PHOS USE SMARTSET 52110 07/27/202407/09, 02/25/2022, 01/29/2021 Adult Wellness Visit 09/20/2024 09/21/2023, 01/30/2022, 01/29/2021 Depression Screening 09/20/2024 09/21/2023 Albumin/Creatinine Ratio 03/02/2025 024, 04/26/2023, 07/13/2022, Additional history exists CKD HGB USE SMARTSET 32416 03/11/202503/11, 03/11/2024, 03/10/2024, Additional history exists DTap/Tdap [...] this encounter Medical Devices Implanted Type Area Home Improvement Contractor Device Identifier Shelf Expiration Date Model / Serial / Lot Bifurcated Endograft Implanted:Qty: 1 on 03/29/2017 by Lisa Emerson MD at [place] [facility] [place]/A: Aorta ENDOLOGIX 01/13/2018 [id number] 6-40 / [id number] / Proximal Endograft Implanted:Qty: 1 on 03/29/2017 by Lisa Emerson MD at [place] [facility] [place] N/A: Aorta ENDOLOGIX 01/16/2020 A25-25/C75- [id number] / [id number] / documented as of this encounter Procedures Procedure Name Priority Date/Time Associated Diagnosis Comments URINALYSIS, POINT OF CARE DAPHNE 03/30/2024 11:08 AM EDT documented in this encounter Results * (ABNORMAL) URINALYSIS, POINT OF CARE (03/30/2024 11:08 AM EDT) Color, Urine Yellow Light Yellow, Yellow 03/30/2024 11:10 AM EDT [facility] Clarity, Urine Clear Clear 03/30/2024 11:10 AM EDT [facility] Glucose, Urine Negative Negative mg/dL 03/30/2024 11:10 AM EDT [facility] Bilirubin, Urine Negative Negative 03/30/2024 11:10 AM EDT [facility] Ketone, Urine Trace(A) Negative mg/dL 03/30/2024 11:10 AM EDT [facility] Specific [place], Urine 1.020 1.003 - 1.030 03/30/2024 11:10 AM EDT [facility] Blood, Urine Large(A) Negative 03/30/2024 11:10 AM EDT [facility] pH, Urine 5.5 5.0, 5.5, 6.0, 6.5, 7.0, 7.5 units 03/30/2024 11:10 AM EDT [facility] Protein, Urine 100(A) Negative mg/dL 03/30/2024 11:10 AM EDT [facility] Urobilinogen, Urine 1.0 0.2, 1.0 mg/dL 03/30/2024 11:10 AM EDT [facility] Nitrite, Urine Negative Negative 03/30/2024 11:10 AM EDT [facility] Esterase, Urine Trace(A) Negative 03/30/2024 11:10 AM EDT [facility] Urine 03/30/2024 11:0 8 AM EDT 03/30/2024 11:10 AM EDT oJse Lisa MD LAB POINT OF CARE TEST DOCKED DEVICE UNSOLICITED RESULTS Performing Organization Address City/State/[facility] Co de Phone Number [facility] [address] [place] [address] documented in this encounter Visit Diagnoses Diagnosis Malignant neoplasm of overlapping sites of bladder (HCC)- Primary Malignant neoplasm of other specified sites of bladder documented in this encounter Advance Directives * Full Code (Latest Code Status on File) Date Activated Date Inactivated Comments 03/29/2017 2:46 PM 03/31/2017 3:33 PM This order reflects the patients wishes and were consensually agreed upon. Care Teams Line Out Man Relationship Specialty Start Date End Date Javon Scales DO [address] [place] [address] PCP - General Internal Medicine 11/19/23 documented as of this encounter
--- OUTSIDE RECORDS SUMMARY | 2024-05-15 18:54 | External Medical Summary | Summary of Care ---
Author Name Unknown Organization [facility] Address [address] [place] [address] Phone [phone] Care Team Providers Care Agriculture Mechanic Name Role Phone Javon Scales DO Primary Care Provider [phone] Reason for Visit * Reason Onset Date Comments Medication Question 04/06/2024 Encounter Details Date Type Department Care Team (Late st Contact Info) Description 04/06/2024 Telephone Family Practice [address] [facility], [place] [address] [place] [phone] Javon Scales DO [address] [place] [address] Medication Question Allergies Active Allergy Reactions Criticality Noted Date [...] as of this encounter (statuses as of 04/06/2024) Medications Medication Sig Dispensed Refills Start Date [...] 1 Capsule daily . Active Saline Nasal [place] 0.65 % Nasal Solution ([place])Indications:E pistaxis Administer into nostril 2 Sprays in the morning AND 2 Sprays before bedtime. 30 mL 12 07/29/2021 Active Nitroglycerin 0.4 MG Sublingual Tablet Sublingual (Nitrostat)Indicatio ns:Atherosclerosis of [place] coronary artery of [place] heart without angina pectoris one tab under [...] (Tenormin)Indication s:HTN, goal below 140/90,Atheroscleros is of [place] coronary artery of [place] heart without angina pectoris Take 1 tablet [...] as of this encounter (statuses as of 04/06/2024) Active Problems Problem Noted Date Diagnosed Date [...] CORONARY ATHEROSCLEROSIS OF UNSPECIFIED TYPE OF VESSEL, [place] OR GRAFT History of bladder cancer documented as of this encounter (statuses as of 04/06/2024) Resolved Problems Problem Noted Date Diagnosed Date Resolved Date Hypertensive kidney disease, stage III 06/05/2020 10/17/2020 Overview: Per CKD protocol Malignant tumor of urinary bladder 09/27/2018 03/02/2024 Abnormal platelets 04/22/2018 02/18/201 9 [place]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 [...] stent and embolization 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/10 [facility] [place] 08/09:1 month s/p reintervention for [...] as of this encounter (statuses as of 04/06/2024) Immunizations Name Administration Dates Next Due COVID-19 mRNA, LNP-s, No Pre serve, 2-Dose Series ([employer]) 04/24/2021,09/06/2020,08/09/2020 COVID-19, MRNA-LNP, PF, 30 M CG/0.3 mL, 12 YRS AND ABOVE, IM (Exaprotect-Comirnaty) 03/20/2024 Covid-19, Mrna, Lnp-s, Pf, B ivalent, 30 Mcg, IM, 12 yrs and above ([employer]) 05/19/2022 H1N1 2009 Influenza, IM 05/28/2009 Influenza, [...] Telephone Encounter - Kelli [place] LPN - 04/06/2024 1:42 PM EDT Advised daughter not able to do so. * Telephone Encounter - Christa Paredes OSA - 04/06/2024 8:49 AM EDT Preservision can he get a prescription for that? Is taking for retina Please call daughter with answer documented in this encounter Plan of Treatment Upcoming Encounters Date Type Department Care Team (Late st Contact Info) Description 04/21/2024 2:20 PM EST Office Visit Family Practice [address], [place] [address] [place] [address] Javon Scales, [address] [place] [address] 05/03/2024 1:45 PM EST Office Visit Urology, [address] [address] Baudilio Rossa MD [address] [place] [address] 07/28/2024 1:00 PM EST Procedure Only Urology, [address] [place] [address] Jose Lisa MD [address] [place] [address] 08/08/2024 3:00 PM EST Office Visit Hematology/Oncology [facility] [address] [facility] [place] [phone] Martir Lazar MD [address] [place] [address] 09/05/2024 4:00 PM EDT Office Visit Cardiology, [facility] [address] [place] [address] Sridhar Fay MD [address] [facility] [place] [address] 09/26/2024 11:00 AM EDT Nurse Only Family Practice [address] [place] [address] [address] [place] [address] Kelli Steele, ANIA [address] [place] [address] Health Maintenance Due Date Last Done Comments COVID-19 Vaccine ( season) 2024 03/20/2024, 05/19/2022, 04/24/2021, Additional history exists CKD PHOS USE SMARTSET 86303 07/27/202407/09, 02/25/2022, 01/29/2021 Adult Wellness Visit 09/20/2024 09/21/2023, 01/30/2022, 01/29/2021 Depression Screening 09/20/2024 09/21/2023 Albumin/Creatinine Ratio 03/02/2025 024, 04/26/2023, 07/13/2022, Additional history exists CKD HGB USE SMARTSET 76630 03/11/202503/11, 03/11/2024, 03/10/2024, Additional history exists DTap/Tdap Vaccines (3 - Td or Tdap) 04/26/2033 04/26/2023, 02/19/2013, 08/11/2007 Pneumococcal Vaccine: 65+ Years Completed 10/16/2014, 05/13/2006, 06/07/1997 Zoster Vaccines Completed 08/16/2019, 05/07, 05/23/2007 Influenza Vaccine (FLU shot) Completed , 03/11/2023, 02/23/2022, Additional history exists HPV (Gardasil) Vaccine Aged Out No lo nger eligible based on patient's age to complete this topic Hepatitis B Vaccine Aged Out No longe r eligible based on patient's age to complete this topic MENINGOCOCCAL (MENACTRA/MENVEO) Aged Out No longer eligible based on patient's age to complete this topic documented as of this encounter Medical Devices Implanted Type Area Tube Cleaner Device Identifier Shelf Expiration Date Model / Serial / Lot Bifurcated Endograft Implanted:Qty: 1 on 03/29/2017 by Lisa Emerson MD at [place] [facility] [place]/A: Aorta ENDOLOGIX 01/13/2018 [id number] 6-40 / [id number] / Proximal Endograft Implanted:Qty: 1 on 03/29/2017 by Lisa Emerson MD at [place] [facility] [place] N/A: Aorta ENDOLOGIX 01/16/2020 A25-25/C75- [id number] / [id number] / documented as of this encounter Advance Directives * Full Code (Latest Code Status on File) Date Activated Date Inactivated Comments 03/29/2017 2:46 PM 03/31/2017 3:33 PM This order reflects the patients wishes and were consensually agreed upon. Care Teams Agriculture Mechanic Relationship Specialty Start Date End Date Javon Scales DO [address] [facility] [place] [address] PCP - General Internal Medicine 11/19/23 documented as of this encounter
--- OUTSIDE RECORDS SUMMARY | 2024-05-15 18:54 | External Medical Summary | Summary of Care ---
Author Name Unknown Organization [facility] Address [address] [place] [address] Phone [phone] Care Team Providers Care Landscape Architect And Planner Name Role Phone Javon Scales Primary Care Provider [phone] Reason for Visit * Reason Comments Post-Op Encounter Details Date Type Department Care Team (Late st Contact Info) Description 03/30/2024 11:00 AM EDT Office Visit Urology, [place] [address] [place] [address] Jose Lisa MD [address] [place] [address] Malignant neoplasm of overlapping sites [...] 1 Capsule daily . Active Saline Nasal [place] 0.65 % Nasal Solution ([place])Indications: Epistaxis Administer into nostril 2 Sprays in the morning AND 2 Sprays before bedtime. 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,Chronic left-sided low [...] CORONARY ATHEROSCLEROSIS OF UNSPECIFIED TYPE OF VESSEL, KNIK OR GRAFT History of bladder cancer documented [...] stent and embolization 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/10 [facility] 3/05:1 month s/p reintervention for his R [...] mRNA, LNP-s, No Pre serve, 2-Dose Series ([employer]) 04/24/2021,09/06/2020,08/09/2020 COVID-19, MRNA-LNP, 24-25, P R, 30MCG/0.3ML, IM, 12YRS AND ABOVE ([employer]) 03/20/2024 Covid-19, Mrna, Lnp-s, Pf, B ivalent, 30 Mcg, IM, 12 yrs and above ([employer]) 05/19/2022 H1N1 2009 Influenza, IM 05/28/2009 Influenza, [...] 04/06/2024 11:00 AM EDT Office Visit Gastroenterology, [facility] [address] [place] [address] Makayla Moody CRNP [address] [place] [address] 04/21/2024 2:20 PM EST Office Visit Family Practice [address] [place] [address] [address] [place] [address] Javon Scales DO [address] [place] [address] 05/03/2024 1:45 PM EST Office Visit Urology, [place] [address] [place] [address] Baudilio Rosas MD [address] [place] [address] 07/28/2024 1:00 PM EST Procedure Only Urology, [place] [address] [place] [address] Jose Lisa MD [address], [place] [id number] 08/08/2024 2:45 PM EST Office Visit Hematology/Oncology [facility] [address] [facility] [place] [phone] Martir Lazar MD [address] [place] [address] 09/05/2024 4:00 PM EDT Office Visit Cardiology, [facility] [address] [place] [address] Sridhar Fay MD [address] [place] [address] 09/26/2024 11:00 AM EDT Nurse Only Family Practice [address] [place] [address] [address] [place] [address] Kelli Steele RN [address] [place] [address] Health Maintenance Due Date Last Done Comments CKD PHOS USE SMARTSET 54679 07/27/202407/09, 02/25/2022, 01/29/2021 Adult Wellness Visit 09/20/2024 09/21/2023, 01/30/2022, 01/29/2021 Depression Screening 09/20/2024 09/21/2023 Albumin/Creatinine Ratio 03/02/2025 024, 04/26/2023, 07/13/2022, Additional history exists CKD HGB USE SMARTSET 13466 03/11/202503/11, 03/11/2024, 03/10/2024, Additional history exists DTap/Tdap [...] this encounter Medical Devices Implanted Type Area Emergency Department Nurse Device Identifier Shelf Expiration Date Model / Serial / Lot Bifurcated Endograft Implanted:Qty: 1 on 03/29/2017 by Lisa Emerson MD at OR [facility] N/A: Aorta ENDOLOGIX 01/13/2018 [id number] / [id number] / Proximal Endograft Implanted:Qty: 1 on 03/29/2017 by Lisa Emerson MD at OR [facility] N/A: Aorta ENDOLOGIX 01/16/2020 [id number] / [id number] / documented as of this encounter Procedures Procedure Name Priority Date/Time Associated Diagnosis Comments URINALYSIS, POINT OF CARE DAPHNE 03/30/2024 11:08 AM EDT documented in this encounter Results * (ABNORMAL) URINALYSIS, POINT OF CARE (03/30/2024 11:08 AM EDT) Color, Urine Yellow Light Yellow, Yellow 03/30/2024 11:10 AM EDT [facility] Clarity, Urine Clear Clear 03/30/2024 11:10 AM EDT [facility] Glucose, Urine Negative Negative mg/dL 03/30/2024 11:10 AM EDT [facility] Bilirubin, Urine Negative Negative 03/30/2024 11:10 AM EDT [facility] Ketone, Urine Trace(A) Negative mg/dL 03/30/2024 11:10 AM EDT [facility] Specific [place], Urine 1.020 1.003 - 1.030 03/30/2024 11:10 AM EDT [facility] Blood, Urine Large(A) Negative 03/30/2024 11:10 AM EDT [facility] pH, Urine 5.5 5.0, 5.5, 6.0, 6.5, 7.0, 7.5 units 03/30/2024 11:10 AM EDT [facility] Protein, Urine 100(A) Negative mg/dL 03/30/2024 11:10 AM EDT [facility] Urobilinogen, Urine 1.0 0.2, 1.0 mg/dL 03/30/2024 11:10 AM EDT [facility] Nitrite, Urine Negative Negative 03/30/2024 11:10 AM EDT [facility] Esterase, Urine Trace(A) Negative 03/30/2024 11:10 AM EDT [facility] Urine 03/30/2024 11:0 8 AM EDT 03/30/2024 11:10 AM EDT Jose Lisa MD LAB POINT OF CARE TEST DOCKED DEVICE UNSOLICITED RESULTS Performing Organization Address City/State/[facility] Co de Phone Number [facility] [address] [place] [address] documented in this encounter Visit Diagnoses Diagnosis Malignant neoplasm of overlapping sites of bladder (HCC)- Primary Malignant neoplasm of other specified sites of bladder documented in this encounter Advance Directives * Full Code (Latest Code Status on File) Date Activated Date Inactivated Comments 03/29/2017 2:46 PM 03/31/2017 3:33 PM This order reflects the patients wishes and were consensually agreed upon. Care Teams Landscape Architect And Planner Relationship Specialty Start Date End Date Javon Scales DO [address] [place] [address] PCP - General Internal Medicine 11/19/23 documented as of this encounter
--- OUTSIDE RECORDS SUMMARY | 2024-05-15 18:54 | External Medical Summary | Summary of Care ---
Author Name Unknown Organization [facility] Address [address] [place] [address] Phone [phone] Care Team Providers Care [employer]ator [employer] Name Role Phone Javon Scales Primary Care Provider Reason for Visit * Reason Comments Follow Up Pt here to f/u for a nemia, fecal occult + and constipation. Pt states his pain medication has been raised to QID and still having issues with BM's. Pt had bladder procedure 1 week ago. Encounter Details Date Type Department Care Team (Latest Contact Info) Description 04/06/2024 11:00 AM EDT Office Visit Gastroenterology, [facility] [address] [place] [id number] Makayla Moody CRNP [address] [place] [id number] Chronic constipation*; Hemorrhoids, external without complications Allergies Active Allergy Reactions Criticality Noted Date [...] 500 MG PO CHEW Take by mouth. Active VITAMIN D3 1000 UNITS PO CAPS Take by mouth daily. 4 Active fluticasone (FLONASE) 50 MCG/ACT nasal sprayIndications:B ronchitis Administer 2 Sprays into each nostril daily. 1 Bottle 5 6 Active Docusate Sodium 100 MG Oral Capsule One pill by mouth twice a day as needed 60 Cap 11 8 Active Multiple Vitamins-Minerals (MULTIVITAMIN ADULT EXTRA C) CHEW 1 Tablet in the morning. 9 Active senna-docusate (SENOKOT S) 8.6-50 MG per tabletIndications: Drug induced constipation,Chron ic bilateral low back pain with bilateral sciatica Take 1 Tab by mouth 2 times a day as needed for Constipation. 1 Tab 9 Active clotrimazole-betam ethasone (LOTRISONE) 1-0.05 % cream APPLY TOPICALLY TO [...] 1 Capsule daily . Active Saline Nasal [place] 0.65 % Nasal Solution (Union)Indications :Epistaxis Administer into nostril 2 Sprays in the morning AND 2 Sprays before bedtime. 30 mL 12 2 Active Nitroglycerin 0.4 MG Sublingual Tablet Sublingual (Nitrostat)Indicat ions:Atheroscleros is of ven[place] ir[place] coronary artery of [place] heart without angina pectoris one tab under tongue as needed for chest pain maximum 3 doses 25 Tablet 5 2 Active Pravastatin Sodium 20 MG Oral Tablet (Pravachol)Indicat ions:Dyslipidemia, goal LDL below 100 TAKE 1 TABLET BY MOUTH ONCE DAILY AT BEDTIME 100 Tablet 3 3 Active Ketoconazole 2 % External Shampoo (Nizoral)Indicatio ns:Scalp pruritus USE SHAMPOO AT LEAST 3 TIMES PER WEEK, LATHER, WAIT 5 MINUTES THEN RINSE 120 mL 3 Active Fluocinonide 0.05 % External SolutionIndication s:Scalp pruritus APPLY SOLUTION TOPICALLY TO AFFECTED AREA OF SCALP NIGHTLY NEEDED FOR ITCHING 60 mL 3 Active Silodosin 4 MG Oral Capsule (Rapaflo) Take 1 Tablet by mouth in the morning. 90 Capsule 3 4 Active Amoxicillin 500 MG Oral Capsule (Amoxil) TAKE FOUR CAPSULES BY MOUTH ONE HOUR BEFORE APPOINTMENT 4 Capsule 4 Active amLODIPine Besylate 2.5 MG Oral Tablet (Norvasc)Indicatio ns:HTN, goal below 140/90 TAKE 1 TABLET BY MOUTH IN THE MORNING 100 Tablet 1 4 Active Atenolol 25 MG Oral Tablet (Tenormin)Indicati ons:HTN, goal below 140/90,Atheroscler osis of [place] coronary artery of [place] heart without angina pectoris Take 1 tablet by mouth twice daily 200 Tablet 1 4 Active Psyllium 58.6 % Oral Packet (Metamucil) Take 1 Packet by mouth in the morning. 4 Active Preparation H 0.25-14-74.9 % Rectal Ointment (Preparation H) Administer into the rectum 4 times a day as needed (Hemorrhoids). 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 120 Tablet 4 Active Polyethylene Glycol 3350 17 GM/SCOOP Oral Powder (MiraLax)Indicatio ns:Chronic constipation,Hemor rhoids, external without complications Take 17 g by mouth in the morning and 17 g before bedtime. Take 1 capful daily in the morning.. 4 Active Polyethylene Glycol 3350 17 GM/SCOOP Oral Powder (MiraLax)Indicatio ns:Other constipation Take 17 g by mouth in the morning. Take 1 capful daily in the morning.. 4 04/06/20 24 Discontinued documented as of this encounter (statuses as [...] CORONARY ATHEROSCLEROSIS OF UNSPECIFIED TYPE OF VESSEL, [place] OR GRAFT History of bladder cancer documented [...] stent and embolization 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/10 [facility] 08/09:1 month s/p reintervention for his R [...] mRNA, LNP-s, No Pre serve, 2-Dose Series (Kaleio) 04/24/2021,09/06/2020,08/09/2020 COVID-19, MRNA-LNP, 24-25, P R, 30MCG/0.3ML, IM, 12YRS AND ABOVE (Kaleio-Comirnat) 03/20/2024 Covid-19, Mrna, Lnp-s, Pf, B ivalent, [...] Sign Reading Time Taken Comments Blood Pressure 122/70 04/06/2024 11:06 AM EDT Pulse 66 04/06/2024 11:06 AM EDT Temperature 36.8 C (98.2 F) 04/06/2024 11:06 AM E DT Respiratory Rate - - Oxygen Saturation - - Inhaled Oxygen Concentration - - Weight 59.9 kg (132 lb) 04/06/2024 11:06 AM EDT Height - - Body Mass Index 21.31 03/29/2024 2:15 PM EDT documented in this encounter Functional Status Functional [...] No 03/29/2017 documented as of this encounter Patient Instructions * Patient Instructions* Makayla Moody CRNP - 04/06/2024 11:17 AM EDT -Increase Miralax to 1 capful twice per day, okay to mix in prune juice -Continue Metamucil -Continue colace documented in this encounter Progress Notes * Makayla Moody CRNP - 04/06/2024 11:00 AM EDT Images from the original note were not included. Gastroenterology Outpatient Visit 04/06/2024 Referring physician:Javon Scales DO PCP: Javon Scales DO Past medical history: Chronic ischemic heart disease with history of anterior wall OR status post CABG Ischemic cardiomyopathy with borderline reduced LVEF of 50% Peripheral vascular disease/AAA Initial endovascular repair (covered stent and right hypogastric embolization) of a right common iliac artery aneurysm on 04/17/[address] Noel. Developed a type 1 endoleak, and required placement of a covered stent graft 08/12/[address] Noel. S/p repair of abdominal aortic aneurysm with Endologix AAA stent graft and placement of proximal extension cuff 03/29/2017. 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 Lazar Recurrent bladder cancer Thrombocytopenia CC: Constipation follow-up HPI: Very pleasant 88-year-old male presents today gastroenterology office in routine follow-up. Was initially evaluated by the undersigned approximately one-month ago after his PCP referred him due to a positive FOBT. 03/02/2024: Noting constipation and straining with bowel movements. Pain tinged blood on toilet paper after having a BM. Anemia stable. Blood thought to be due to bleeding hemorrhoids. + MiraLax plus Metamucil started. 04/06/2024: Today the patient presents with his per his usual routine. Noted initial improvement in constipation with the addition of Metamucil and MiraLax however pain medication was recently increased andconstipation has returned. Last bowel movement yesterday. Currently denies abdominal discomfort/pain, nausea or vomiting. No history of jaundice. No fever, chills, cough, hematochezia, melena, or hemoptysis. Current Outpatient Medications Medication Sig Dispense Refill CO Q 10 10 MG PO CAPS VITAMIN B-6 100 MG PO TABS 200mg three times per week 0 OMEGA 3 1000 MG PO CAPS 1200 mg daily TUMS 500 MG PO CHEW Take by mouth. VITAMIN D3 1000 UNITS PO CAPS Take by mouth daily. Docusate Sodium 100 MG Oral Capsule One pill by mouth twice a day as needed 60 Cap 11 Multiple Vitamins-Minerals (MULTIVITAMIN ADULT EXTRA C) CHEW 1 Tablet in the morning. senna-docusate (SENOKOT S) 8.6-50 MG per tablet Take 1 Tab by mouth 2 times a day as needed for Constipation. 1 Tab Triamcinolone Acetonide 0.1 % External Lotion (Aristocort) Apply to affected area at groin twice daily as needed 60 mL 2 PreserVision AREDS 2+Multi Vit Oral Capsule Take by mouth 1 Capsule daily . Saline Nasal [place] 0.65 % Nasal Solution (Union) Administer into nostril 2 Sprays in the morning AND 2 Sprays before bedtime. 30 mL 12 Nitroglycerin 0.4 MG Sublingual Tablet Sublingual (Nitrostat) one tab under tongue as needed for chest pain maximum 3 doses 25 Tablet 5 Pravastatin Sodium 20 MG Oral Tablet (Pravachol) TAKE 1 TABLET BY MOUTH ONCE DAILY AT BEDTIME 100 Tablet 3 Silodosin 4 MG Oral Capsule (Rapaflo) Take [...] by mouth twice daily 200 Tablet 1 Polyethylene Glycol 3350 17 GM/SCOOP Oral Powder (MiraLax) Take 17 g by mouth in the morning. Take 1 capful daily in the morning.. Psyllium 58.6 % Oral Packet (Metamucil) Take 1 Packet by mouth in the morning. Preparation H 0.25-14-74.9 % Rectal Ointment (Preparation H) Administer into the rectum 4 times a day as needed (Hemorrhoids). oxyCODONE HCl 5 MG Oral Tablet (Oxy IR) Take 1 Tablet by mouth every 6 hours as needed for Pain, Severe. 120 Tablet 0 fluticasone (FLONASE) 50 MCG/ACT nasal spray Administer 2 Sprays into each nostril daily. 1 Bottle 5 clotrimazole-betamethasone (LOTRISONE) 1-0.05 % cream APPLY TOPICALLY TO RIGHT LEG AREA TWICE DAILY(Patient not taking: Reported on 03/13/2024) 135 g 5 Ketoconazole 2 % External Shampoo (Nizoral) USE SHAMPOO AT LEAST 3 TIMES PER WEEK, LATHER, WAIT 5 MINUTES THEN RINSE 120 mL 0 Fluocinonide 0.05 % External Solution APPLY SOLUTION TOPICALLY TO AFFECTED AREA OF SCALP NIGHTLY ASNEEDED FOR ITCHING 60 mL 0 No current facility-administered medications for this visit. Past Medical History: Diagnosis Date Aneurysm (HCC) [...] years COLONOSCOPY, DIAGNOSTIC (RECTUM) 10/23/2015 benign polyps, diverticulosis/[facility] CYSTO/URETERO W/LITHOTRIPSY Right 02/28/2019 CYSTOURETHROSCOPY URETEROSCOPY WITH LITHOTRIPSY AND STENT INSERTION performed by Alen Aguilar MD at OR [facility] CYSTOSCOPY 03-05-2010 CYSTOSCOPY/INSERTION OF STENT Right 12/19/2018 CYSTOURETHROSCOPY WITH INSERTION URETERAL STENT performed by Alen Aguilar MD at OR [facility] CYSTOSCOPY/TREAT LGE BLADDER TUMOR N/A 10/07/2018 CYSTOURETHROSCOPY WITH FULGURATION LARGE BLADDER TUMOR performed by Alen Aguilar MD at OR [facility] CYSTOSCOPY/TREAT LGE BLADDER TUMOR N/A 05/22/2021 CYSTOURETHROSCOPY WITH FULGURATION LARGE BLADDER TUMOR performed by Alysa Valente MD at OR [facility] CYSTOSCOPY/TREAT SML BLADDER TUMOR N/A 03/13/2024 CYSTOURETHROSCOPY WITH FULGURATION SMALL BLADDER TUMOR performed by Jose Lisa MD atOR [facility] CYSTOURETERO W/BIOPSY Right 12/19/2018 CYSTOURETHROSCOPY URETEROSCOPY WITH BIOPSY AND OR FULGURATION LESION performed by Alen Aguilar MD at OR [facility] CYSTOURETERO W/BIOPSY N/A 02/28/2019 CYSTOURETHROSCOPY URETEROSCOPY WITH BIOPSY AND OR FULGURATION LESION performed by Alen Aguilar MD at OR [facility] CYSTOURETERO W/BIOPSY Bilateral 09/21/2019 CYSTOURETHROSCOPY URETEROSCOPY WITH BIOPSY AND OR FULGURATION LESION performed by Alysa Valente MD at OR [facility] CYSTOURETHROSCOPY W/BIOPSY N/A 05/22/2021 CYSTOURETHROSCOPY WITH BIOPSY performed by Alysa Valente MD at OR [facility] ENDOVASC ABDO REPR W/BI DEVICE N/A 03/29/2017 ENDOVASCULAR REPAIR ABDOMINAL AORTIC ANEURYSM BIF PROS 1 LIMB performed by Lisa Emerson MD at OR [facility] FLUORO PYELOGRAM RETROGRADE Left 02/28/2019 UROGRAHY, RETROGRADE, WITH OR WITHOUT KUB performed by Alen Aguilar MD at OR [facility] FLUORO PYELOGRAM RETROGRADE Bilateral 09/21/2019 UROGRAHY, RETROGRADE, WITH OR WITHOUT KUB performed by Alysa Valente MD at OR [facility] INFORMATION open heart surgery [facility] INFORMATION 07/1999 bladder [facility] danella INFORMATION 03/29/2017 model# XRA24-81/116-40 AFX Endovascular AAA Stent Graft Extension INFORMATION 03/29/2017 model# A25-25/C06-X42X AFX Endovascular AAA Stent Limb Extension INJECT DX/THER SUBSTANCE INTERLAMINAR LUMBAR/SACRAL W IMAGE GUIDE 05/25/2019 INJECTION SPINE LUMBAR OR SACRAL performed by Michel Gil DO at OR [facility] INJECT DX/THER SUBSTANCE INTERLAMINAR LUMBAR/SACRAL W IMAGE GUIDE 06/22/2019 INJECTION SPINE LUMBAR OR SACRAL performed by Michel Gil DO at OR [facility] INJECT DX/THER SUBSTANCE INTERLAMINAR LUMBAR/SACRAL W IMAGE GUIDE 02/01/2020 INJECTION SPINE LUMBAR OR SACRAL performed by Michel Gil DO at OR [facility] IOF CT GUIDED NEEDLE BIOPSY 03/06/2011 CT GUIDED NEEDLE ASPIRATION BIOPSY performed by DUDLEY WARNER at RADIOLOGY [facility] IR ENDOVASCULAR REPAIR ILIAC 04/17/04 right common iliac aneurysm stent graft repair, right hypogastric embolization, Dr. 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 Noel REMOVAL OF TONSILS, UNDER AGE 12 Tonsils Removal,<12 Y/O Social History Tobacco Use Smoking status: Former Current packs/day: 0.00 Average packs/day: 1 pack/day for 20.0 years (20.0 ttl pk-yrs) Types: Cigarettes Start date: 11/25/1977 Quit date: 11/25/1997 Years since quittin.3 Passive exposure: Past Smokeless tobacco: Never Tobacco comments: quit smoking about 1997 Vaping Use Vaping status: Never Used Substance Use Topics Alcohol use: Yes Comment: occassionally Drug use: No Review of patient's allergies indicates: Allergen Reactions Flomax [Tamsulosin Hcl] Other (Please comment) collapse Lisinopril Other (Please comment) Caused pt to have blurred vision and become very flushed Ciprofloxacin Nausea/vomiting Stomach upset Finasteride Other (Please comment) Enlarged breast tissue Levaquin [Levofloxacin] Other (Please comment) Hx of achilles tendon tear Lipitor [Atorvastatin] Abdominal pain Zocor [Simvastatin] Abdominal pain Review of Systems: See HPI for pertinent positives. All others negative, other than those noted in HPI. Physical Exam: BP 122/70 | Pulse 66 | Temp 36.8 C (98.2 F) | Wt 59.9 kg (132 lb) | BMI 21.31 kg/m | BSA 1.67m GENERAL: Well developed and well nourished in no acute distress. SKIN: No rashes, ulcers, jaundice or spider angiomata. HEENT: Normocephalic, sclera clear, pharynx normal. NECK: Supple, no lymphadenopathy, no masses or thyroid enlargement. LUNGS: Clear to auscultation bilaterally, no respiratory distress or accessory muscles used. HEART: Regular rate & rhythm, no murmurs and no gallops. ABDOMEN: Normal bowel sounds, soft and nontender, no masses or hepatosplenomegaly. EXTREMITIES: No palmar erythema, no ankle edema, no skin discoloration, no clubbing, no cyanosis. NEURO: No lateralizing findings. Sensory/Motor grossly normal. Lab data/imaging study review: Colonoscopy 10/23/2015 at [facility] Impression/Plan: This is a(n) medically complex 88 year old male who is being evaluated in the office for ongoing care/risk management for the below diagnoses. 1. Constipation 2. Hemorrhoids Ongoing issues with constipation, initially improved fiber and MiraLax over with the increase pain Medicine constipation symptoms have returned. No further episodes of rectal bleeding, hemorrhoids stable. Recommend bowel good regimen: Continue Metamucil 1 tsp daily. Increase MiraLax to 1 capful twice daily. Okay to continue Colace. Patient is unsure if he is taking Senokot. He will double check and let me know. Increase oral hydration 60-80 oz water daily, encouraged daily movement/exercise, healthy dietary choices. Avoid straining with bowel movements. Discussed preparation H use for hemorrhoids The patient agrees to the above plan and will call with additional questions or concerns. ER with all emergencies advised. Follow Up: Return in about 6 months (around 10/04/2024). I spent a total of 30-39 minutes (exact time 30 mins) on the date of service in preparation, delivery, and documentation of the care provided to Cedric Sam Jr. excluding any time spent in the performance of separately billed services or time spent by another provider/QHP. MARK Ortiz [facility] This chart was completed in part utilizing [employer] Speech Voice Recognition Software. Grammatical errors, random word insertions, prounoun errors, and incomplete sentences are an occasional consequence of this system due to software limitations, ambient noise, and hardware issues. Any formal questions or concerns about the content, text, or information contained within the body of this dictation should be directly addressed to the provider for clarification. documented in this encounter Nursing Notes * Lexus Mcbride CMA - 04/06/2024 11:05 AM EDT Chief Complaint Patient presents with Follow Up Pt here to f/u for anemia, fecal occult + and constipation. Pt states his pain medication has been raised to QID and still having issues with BM's. Pt had bladder procedure 1 week ago. documented in this encounter Plan of Treatment Upcoming Encounters Date Type Department Care Team (Late st Contact Info) Description 04/21/2024 2:20 PM EST Office Visit Family Practice [address] [place] [address] [place] [address] Javon Scales, [address] [place] [address] 05/03/2024 1:45 PM EST Office Visit Urology, [place] [address] [place] [address] Baudilio Rosas MD [address] [place] [address] 07/28/2024 1:00 PM EST Procedure Only Urology, [place] [address] [place] [address] Jose Lisa MD [address] [place] [address] 08/08/2024 3:00 PM EST Office Visit Hematology/Oncology [facility] [address] [place] [phone] Martir Lazar MD [address] [place] [address] 09/05/2024 4:00 PM EDT Office Visit Cardiology, [facility] [address] [place] [address] Sridhar Fay MD [address] [place] [address] 09/26/2024 11:00 AM EDT Nurse Only Family Practice [address] [place] [address] [address] [facility] [place] [phone] Kelli Steele RN [address] [place] [phone] Health Maintenance Due Date Last Done Comments COVID-19 Vaccine (2023- season) 2024 03/20/2024, 05/19/2022, 04/24/2021, Additional history exists CKD PHOS USE SMARTSET 55471 07/27/2024 02/2 , 02/25/2022, 01/29/2021 Adult Wellness Visit 09/20/2024 09/21/2023, 01/30/2022, 01/29/2021 Depression Screening 09/20/2024 09/21/2023 Albumin/Creatinine Ratio 03/02/2025 024, 04/26/2023, 07/13/2022, Additional history exists CKD HGB USE SMARTSET 70448 03/11/202503/11, 03/11/2024, 03/10/2024, Additional history exists DTap/Tdap [...] this encounter Medical Devices Implanted Type Area Clinical Quality Rn Device Identifier Shelf Expiration Date Model / Serial / Lot Bifurcated Endograft Implanted:Qty: 1 on 03/29/2017 by Lisa Emerson MD at OR [facility] N/A: Aorta ENDOLOGIX 01/13/2018 [id number] / [id number] / Proximal Endograft Implanted:Qty: 1 on 03/29/2017 by Lisa Emerson MD at OR [facility] N/A: Aorta ENDOLOGIX 01/16/2020 A25-25/[id number] / [id number] / documented as of this encounter Visit Diagnoses Diagnosis Chronic constipation- Primary Unspecified constipation Hemorrhoids, external without complications External hemorrhoids without mention of complication documented in this encounter Advance Directives * Full Code (Latest Code Status on File) Date Activated Date Inactivated Comments 03/29/2017 2:46 PM 03/31/2017 3:33 PM This order reflects the patients wishes and were consensually agreed upon. Care Teams [employer] [employer] Relationship Specialty Start Date End Date Javon Scales DO [address] [place] [address] PCP - General Internal Medicine 11/19/23 documented as of this encounter"
--- OUTSIDE RECORDS SUMMARY | 2024-05-15 18:55 | External Medical Summary | Summary of Care ---
Author Name Unknown Organization [facility] Address [address] [place] [address] Phone [phone] Care Team Providers Care Videotape Operator Name Role Phone Javon Scales DO Primary Care Provider Reason for Visit * Reason Onset Date Comments Advice 03/27/2024 Urinating blood Encounter Details Date Type Department Care Team (Late st Contact Info) Description 03/27/2024 Telephone Family Practice [facility] [address] [place] [phone] Javon Scales DO [address] [place], [place] [id number] Advice (Urinating blood) Allergies Active Allergy Reactions Criticality Noted Date [...] as of this encounter (statuses as of 03/27/2024) Medications Medication Sig Dispensed Refills Start Date [...] 1 Capsule daily . Active Saline Nasal [place] 0.65 % Nasal Solution ([place])Indications: Epistaxis Administer into nostril 2 Sprays in the morning AND 2 Sprays before bedtime. 30 mL 12 07/29/2021 Active Nitroglycerin 0.4 MG Sublingual Tablet Sublingual (Nitrostat)Indicati ons:Atherosclerosis of [place] coronary artery of [place] heart without angina pectoris one tab under [...] NEEDED FOR ITCHING 60 mL 08/14/2022 Active Aspirin 81 MG Oral Tablet Delayed Release Take 1 Tablet by mouth in the morning. 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 120 Tablet 03/27/2024 Active documented as of this encounter (statuses as of 03/27/2024) Active Problems Problem Noted Date Diagnosed Date [...] CORONARY ATHEROSCLEROSIS OF UNSPECIFIED TYPE OF VESSEL, CHEESH-NA OR GRAFT History of bladder cancer documented as of this encounter (statuses as of 03/27/2024) Resolved Problems Problem Noted Date Diagnosed Date [...] stent and embolization 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/10 [facility] [place]09:1 month s/p reintervention for his R [...] as of this encounter (statuses as of 03/27/2024) Immunizations Name Administration Dates Next Due COVID-19 mRNA, LNP-s, No Pre serve, 2-Dose Series (OncoEthix) 04/24/2021,09/06/2020,08/09/2020 COVID-19, MRNA-LNP, 24-25, P R, 30MCG/0.3ML, IM, 12YRS AND ABOVE (OncoEthix-Comirnaty) 03/20/2024 Covid-19, Mrna, Lnp-s, Pf, B ivalent, 30 Mcg, IM, 12 yrs and above (OncoEthix) 05/19/2022 H1N1 2009 Influenza, IM 05/28/2009 Influenza, [...] No 04/26/2023 Does the household have a [facility] source of income? (Household - for [...] Telephone Encounter - Ashley Gudino RN - 03/27/2024 11:17 AM EDT Returned call to patient who reports since Wednesday he has been having blood in the urine. He reportshe is able to urinate without issue but has noted some clots. He states this started after lifting something that was heavy on Wednesday. Explained this still can be within normal and to increase oral fluids to help flush his bladder. He denies fever, chills or pain. He is scheduled to be seen for post op follow up on with Dr. Lisa. Discussed return precautions to include pain in bladder or kidney, unable to urinate or develop of fever. Patient advised to report to his local ER if these symptoms develop. Patient appreciated call. Ashley Gudino RN, MSN 03/27/2024 11:22 AM * Telephone Encounter - Christa Paredes OSA - 03/27/2024 8:16 AM EDT Called patient to schedule CT Patient informed me that he is urinating blood Has Urology appt with Dr Lisa on Would like a call back documented in this encounter Plan of Treatment Upcoming Encounters Date Type Department Care Team (Late st Contact Info) Description 03/28/2024 3:15 PM EDT Imaging Radiology [address] [place] [address] 03/29/2024 2:20 PM EDT Office Visit [address] [place] [phone] Javon Scales, [address] [place] [address] 03/30/2024 11:00 AM EDT Office Visit Urology, [address] [address] Jsoe Lisa MD [facility] [place] [address] 04/06/2024 11:00 AM EDT Office Visit Gastroenterology, [facility] [address] [place] [address] Makayla Moody CRNP [address] [place] [address] 04/21/2024 2:20 PM EST Office Visit [address] [place] [phone] Javon Scales, [address] [place] [address] 05/03/2024 1:45 PM EST Office Visit Urology, [place] [address] [place] [address] Baudilio Rosas MD [facility] [place] [address] 07/28/2024 1:00 PM EST Procedure Only Urology, [place] [address] [place] [address] Jose Lisa MD [address] [place] [address] 08/08/2024 2:45 PM EST Office Visit Hematology/Oncology [facility] [address] [facility] [place] [phone] Martir Lazar MD [address] [place] [address] 09/05/2024 4:00 PM EDT Office Visit Cardiology, [facility] [address] [facility] [place] [address] Sridhar Fay MD [address] [facility] [address] 09/26/2024 11:00 AM EDT Nurse Only Family Practice [address] [place] [address] 293 [place] [phone] Kelli Steele RN 293 [place] [phone] Health Maintenance Due Date Last Done Comments CKD PHOS USE SMARTSET 14870 07/27/202407/09, 02/25/2022, 01/29/2021 Adult Wellness Visit 09/20/2024 09/21/2023, 01/30/2022, 01/29/2021 Depression Screening 09/20/2024 09/21/2023 Albumin/Creatinine Ratio 03/02/2025 024, 04/26/2023, 07/13/2022, Additional history exists CKD HGB USE SMARTSET 71468 03/11/202503/11, 03/11/2024, 03/10/2024, Additional history exists DTap/Tdap [...] this encounter Medical Devices Implanted Type Area Pet Feeder Device Identifier Shelf Expiration Date Model / Serial / Lot Bifurcated Endograft Implanted:Qty: 1 on 03/29/2017 by Lisa Emerson MD at [place] [facility] [place] N/A: Aorta ENDOLOGIX 01/13/2018 [id number]/11 6-40 / [id number] / Proximal Endograft Implanted:Qty: 1 on 03/29/2017 by Lisa Emerson MD at [place] [facility] [place] N/A: Aorta ENDOLOGIX 01/16/2020 [id number]/[id number] / [id number] / documented as of this encounter Advance Directives * Full Code (Latest Code Status on File) Date Activated Date Inactivated Comments 03/29/2017 2:46 PM 03/31/2017 3:33 PM This orde r reflects the patients wishes and were consensually agreed upon. Care Teams Videotape Operator Relationship Specialty Start Date End Date Javon Scales DO [address] [address] PCP - General Internal Medicine 11/19/23 documented as of this encounter
--- OUTSIDE RECORDS SUMMARY | 2024-05-15 18:55 | External Medical Summary | Summary of Care ---
Author Name Unknown Organization [facility] Address [address] [place] [address] Phone [phone] Care Team Providers Care Peripheral Equipment Operator Name Role Phone Javon Scales DO Primary Care Provider [phone] Reason for Visit * Reason Comments Follow Up Encounter Details Date Type Department Care Team (Latest Contact Info) Description 03/29/2024 2:20 PM EDT Office Visit Family Practice [facility] [address] [place] [address] Javon Scales DO [address] [place] [address] Lung nodules*; Hypertensive kidney disease with stage 3a chronic kidney disease (HCC); Malignant neoplasm of overlapping sites of bladder (HCC); Thrombocytopenia (HCC); Atherosclerosis of alutiiq coronary artery of alutiiq heart without angina pectoris; DYSLIPIDEMIA, GOAL LDL BELOW 100; Benign prostatic hyperplasia with urinary retention; Degeneration of intervertebral disc of lumbar region with discogenic back pain Allergies Active Allergy Reactions Criticality Noted Date [...] as of this encounter (statuses as of 03/29/2024) Medications Medication Sig Dispensed Refills Start Date [...] 06/14/2013 Active fluticasone (FLONASE) 50 MCG/ACT nasal sprayIndications: Bronchitis Administer 2 Sprays into each nostril daily. 1 Bottle 5 08/09/2015 Active Docusate Sodium 100 MG Oral Capsule One pill by mouth twice a day as needed 60 Cap 11 06/28/2017 Active Multiple Vitamins-Minerals (MULTIVITAMIN ADULT EXTRA C) CHEW 1 Tablet in the morning. 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 1 Tab 05/29/2019 Active clotrimazole-beta methasone (LOTRISONE) 1-0.05 % cream [...] 1 Capsule daily . Active Saline Nasal [place]ur 0.65 % Nasal Solution (Prairie)Indication s:Epistaxis Administer into nostril 2 Sprays in the morning AND 2 Sprays before bedtime. 30 mL 12 07/29/2021 Active Nitroglycerin 0.4 MG Sublingual Tablet Sublingual (Nitrostat)Indica tions:Atheroscler osis of alutiiq coronary artery of alutiiq heart without angina pectoris one tab under tongue as needed for chest pain maximum 3 doses 25 Tablet 5 09/23/2021 Active Pravastatin Sodium 20 MG Oral Tablet (Pravachol)Indica tions:Dyslipidemi a, goal LDL below 100 TAKE 1 TABLET BY MOUTH ONCE DAILY AT BEDTIME 100 Tablet 3 06/10/2022 Active Ketoconazole 2 % External Shampoo (Nizoral)Indicati ons:Scalp pruritus USE SHAMPOO AT LEAST 3 TIMES PER WEEK, LATHER, WAIT 5 MINUTES THEN RINSE 120 mL 08/14/2022 Active Fluocinonide 0.05 % External SolutionIndicatio ns:Scalp [...] 01/18/2024 Active Atenolol 25 MG Oral Tablet (Tenormin)Indicat ions:HTN, goal below 140/90,Atheroscle rosis of alutiiq coronary artery of alutiiq heart without angina pectoris Take 1 tablet by mouth twice daily 200 Tablet 1 02/08/2024 Active Polyethylene Glycol 3350 17 GM/SCOOP Oral Powder (MiraLax)Indicati ons:Other constipation Take 17 g by mouth in [...] for Pain, Severe. 120 Tablet 03/27/2024 Active Aspirin 81 MG Oral Tablet Delayed Release Take 1 Tablet by mouth in the morning. 09/08/2023 03/29/20 24 Discontinued Pantoprazole Sodium 40 MG Oral Tablet Delayed Release (Protonix)Indicat ions:Thrombocytop enia (HCC) Take 1 Tablet by mouth in the morning for 4 days. 4 Tablet 03/08/2024 03/29/20 24 Discontinued documented as of this encounter (statuses as of 03/29/2024) Active Problems Problem Noted Date Diagnosed Date [...] CORONARY ATHEROSCLEROSIS OF UNSPECIFIED TYPE OF VESSEL, [place] PASS OR GRAFT History of bladder cancer documented as of this encounter (statuses as of 03/29/2024) Resolved Problems Problem Noted Date Diagnosed Date [...] stent and embolization 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/10 [facility] 08/09:1 month s/p reintervention for his R [...] as of this encounter (statuses as of 03/29/2024) Immunizations Name Administration Dates Next Due COVID-19 mRNA, LNP-s, No Pre serve, 2-Dose Series ([employer]) 04/24/2021,09/06/2020,08/09/2020 COVID-19, MRNA-LNP, 24-25, P R, 30MCG/0.3ML, IM, 12YRS AND ABOVE ([facility]) 03/20/2024 Covid-19, Mrna, Lnp-s, Pf, B ivalent, [...] Sign Reading Time Taken Comments Blood Pressure 122/60 03/29/2024 2:15 PM EDT Pulse 66 03/29/2024 2:15 PM EDT Temperature 37 C (98.6 F) 03/29/2024 2:15 PM EDT Respiratory Rate 16 03/29/2024 2:15 PM EDT Oxygen Saturation 96% 03/29/2024 2:15 PM EDT Inhaled Oxygen Concentration - - Weight 59.3 kg (130 lb 12.8 oz) 03/29/2024 2:15 PM EDT Height 167.6 cm (5' 6") 03/29/2024 2:15 PM EDT Body Mass Index 21.11 03/29/2024 2:15 PM EDT documented in this [...] (15 years old or older) No 03/29/20 Cognitive Status Response Date of Assessm ent Because of a physical, menta l, or emotional condition, do you have serious difficulty concentrating, remembering, or making decisions? (5 years old or older) No 03/29/2017 documented as of this encounter Progress Notes * Javon Scales, - 03/29/2024 2:43 PM EDT SUBJECTIVE: Cedric Sam Jr. is a 88 year old male. 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 The patient had possible new right lower lobe lung nodule on CT thoracic spine. No new nodule was present on CT chest. The patient is scheduled to see Urology for follow up on recurrentBladder Cancer. Back pain is controlled with increased Oxycodone dose. No chest pain or shortness of breath is present.Weight is down. 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 CORONARY ATHEROSCLEROSIS OF UNSPECIFIED TYPE OF VESSEL, [place] PASS OR GRAFT History of bladder cancer Macular [...] without rupture (HCC) Controlled substance agreement signed Current Outpatient Medications Medication Sig Dispense Refill [...] day as needed for Constipation. 1 Tab PreserVision AREDS 2+Multi Vit Oral Capsule Take by mouth 1 Capsule daily . Nitroglycerin 0.4 MG Sublingual Tablet Sublingual (Nitrostat) [...] 1 Packet by mouth in the morning. oxyCODONE HCl 5 MG Oral Tablet (Oxy IR) Take 1 Tablet by mouth every 6 hours as needed for Pain, Severe. 120 Tablet 0 clotrimazole-betamethasone (LOTRISONE) 1-0.05 % cream APPLY TOPICALLY TO RIGHT LEG AREA TWICE DAILY(Patient not taking: Reported on 03/13/2024) 135 g 5 Triamcinolone Acetonide 0.1 % External Lotion (Aristocort) Apply to affected area at groin twice daily as needed (Patient not taking: Reported on 03/13/2024) 60 mL 2 Saline Nasal [place]ur 0.65 % Nasal Solution (Prairie) Administer into nostril 2 Sprays in the morning AND 2 Sprays before bedtime. 30 mL 12 Ketoconazole 2 % External Shampoo (Nizoral) USE SHAMPOO AT LEAST 3 TIMES PER WEEK, LATHER, WAIT 5 MINUTES THEN RINSE 120 mL 0 Fluocinonide 0.05 % External Solution APPLY SOLUTION TOPICALLY TO AFFECTED AREA OF SCALP NIGHTLY ASNEEDED FOR ITCHING 60 mL 0 Preparation H 0.25-14-74.9 % Rectal Ointment (Preparation H) Administer into the rectum 4 times a day as needed (Hemorrhoids). No current facility-administered medications for this visit. [...] years COLONOSCOPY, DIAGNOSTIC (RECTUM) 10/23/2015 benign polyps, diverticulosis/[facility] CYSTO/URETERO W/LITHOTRIPSY Right 02/28/2019 CYSTOURETHROSCOPY URETEROSCOPY WITH LITHOTRIPSY AND STENT INSERTION performed by Alen Aguilar MD at OR [facility] CYSTOSCOPY 03-05-2010 CYSTOSCOPY/INSERTION OF STENT Right 12/19/2018 CYSTOURETHROSCOPY WITH INSERTION URETERAL STENT performed by Alen Aguilar MD at OR [facility] CYSTOSCOPY/TREAT LGE BLADDER TUMOR N/A 10/07/2018 CYSTOURETHROSCOPY WITH FULGURATION LARGE BLADDER TUMOR performed by Alen Aguilar MD at OR [facility] CYSTOSCOPY/TREAT LGE BLADDER TUMOR N/A 05/22/2021 CYSTOURETHROSCOPY WITH FULGURATION LARGE BLADDER TUMOR performed by Alysa Valente MD at OR [facility] CYSTOSCOPY/TREAT SML BLADDER TUMOR N/A 03/13/2024 CYSTOURETHROSCOPY WITH FULGURATION SMALL BLADDER TUMOR performed by Jose Lisa MD atOR [facility] CYSTOURETERO W/BIOPSY Right 12/19/2018 CYSTOURETHROSCOPY URETEROSCOPY WITH BIOPSY AND OR FULGURATION LESION performed by Alen Aguilar MD at OR [facility] CYSTOURETERO W/BIOPSY N/A 02/28/2019 CYSTOURETHROSCOPY URETEROSCOPY WITH BIOPSY AND OR FULGURATION LESION performed by Alen Aguilar MD at OR [facility] CYSTOURETERO W/BIOPSY Bilateral 09/21/2019 CYSTOURETHROSCOPY URETEROSCOPY WITH BIOPSY AND OR FULGURATION LESION performed by Alysa Valente MD at OR [facility] CYSTOURETHROSCOPY W/BIOPSY N/A 05/22/2021 CYSTOURETHROSCOPY WITH BIOPSY performed by Alysa Valente MD at OR [facility] ENDOVASC ABDO REPR W/BI DEVICE N/A 03/29/2017 ENDOVASCULAR REPAIR ABDOMINAL AORTIC ANEURYSM BIF PROS 1 LIMB performed by Lisa Emerson MD at OR [facility] FLUORO PYELOGRAM RETROGRADE Left 02/28/2019 UROGRAHY, RETROGRADE, WITH OR WITHOUT KUB performed by Alen Aguilar MD at OR [facility] FLUORO PYELOGRAM RETROGRADE Bilateral 09/21/2019 UROGRAHY, RETROGRADE, WITH OR WITHOUT KUB performed by Alysa Valente MD at OR [facility] INFORMATION open heart surgery [facility] INFORMATION 07/1999 bladder [facility] danella INFORMATION 03/29/2017 model# [id number]/[id number] AFX Endovascular AAA Stent Graft Extension INFORMATION 03/29/2017 model# A25-25/[id number] AFX Endovascular AAA Stent Limb Extension INJECT DX/THER SUBSTANCE INTERLAMINAR LUMBAR/SACRAL W IMAGE GUIDE 05/25/2019 INJECTION SPINE LUMBAR OR SACRAL performed by Michel Gil DO at OR [facility] INJECT DX/THER SUBSTANCE INTERLAMINAR LUMBAR/SACRAL W IMAGE GUIDE 06/22/2019 INJECTION SPINE LUMBAR OR SACRAL performed by Michel Gil DO at OR [facility] INJECT DX/THER SUBSTANCE INTERLAMINAR LUMBAR/SACRAL W IMAGE GUIDE 02/01/2020 INJECTION SPINE LUMBAR OR SACRAL performed by Michel Gil DO at OR [facility] IOF CT GUIDED NEEDLE BIOPSY 03/06/2011 CT GUIDED NEEDLE ASPIRATION BIOPSY performed by DUDLEY WARNER at RADIOLOGY [facility] IR ENDOVASCULAR REPAIR ILIAC 04/17/04 right common [...] Review of Systems Constitutional: Positive for appetite change and unexpected weight change. Negative for chills, fatigue and fever. Respiratory: Negative for cough, shortness of breath and wheezing. Cardiovascular: Negative for chest pain, palpitations and leg swelling. Gastrointestinal: Negative for abdominal pain, blood in stool, constipation, diarrhea, nausea and vomiting. Genitourinary: Positive for flank pain and frequency. Negative for dysuria and hematuria. Musculoskeletal: Positive for arthralgias, back pain and gait problem. Neurological: Negative for dizziness, syncope and headaches. Psychiatric/Behavioral: Negative for confusion, decreased concentration and sleep disturbance. OBJECTIVE: BP 122/60 | Pulse 66 | Temp 37 C (98.6 F) (Tympanic) | Resp 16 | Ht 1.676 m (5' 6") | Wt 59.3 kg (130 lb 12.8 oz) | SpO2 96% | BMI 21.11 kg/m | BSA 1.66 m Physical Exam Vitals and nursing note [...] breath sounds. No wheezing, rhonchi or rales. Musculoskeletal: Lumbar back: Spasms and tenderness present. Scoliosis present. Right lower leg: No edema. Left lower leg: No edema. Neurological: Mental Status: He is oriented to person, place, and time. Mental status is at baseline. Motor: No weakness. Gait: Gait abnormal. CT CHEST WO CONTRAST Result Date: 03/29/2024 IMPRESSION 1. The previously seen bilateral pulmonary nodules are stable in size since the prior chest CT. Continued surveillance is suggested. 2. Other findings as detailed above. CT L SPINE WO CONTRAST Result Date: 03/22/2024 IMPRESSION: THORACIC SPINE CT: 1. Transitional thoracic spine anatomy. 11 rib- bearing thoracic typevertebral bodies, stable compared with 01/[address] C7 left cervical rib and right elongated transverse process. Most superior kib-kbo-gjbqdya vertebral body designated as T12 for this dictation.2. Convex left superior thoracic scoliosis, measuring 34 degrees by Thompson method between superior T1and inferior T4 endplates. Convex right midthoracic scoliosis, measuring 19 degrees by Thompson method between superior T5 and inferior T9 endplates. Convex left thoracolumbar scoliosis, measuring 32 degrees by Thompson method between superior T10 and inferior L3 endplates. 3. Grade I anterolisthesis of T8on T9. Grade I retrolisthesis of T11 on T12. 4. No thoracic spine fracture. 5. Centrilobular emphysema. Right lower lobe part solid subcentimeter pulmonary nodule, new compared with 01/[address] without contrast is recommended. 6. Degenerative disc height loss at all thoracic levels. At worst severe facet arthropathy. 7. Left lung pulmonary nodules, better characterized on January [address] Incompletely included right upper lobe post-treatment changes. LUMBAR SPINE CT: 1. Transitional thoracic spine and lumbar spine anatomy. 6 ikz-xvv-yqpfuqd lumbar type vertebral bodies, stable compared with 02/2021 abdomen/pelvis CT. However 11 rib-bearing thoracic type vertebral bodies on accompanying thoracic spine CT. Most superior efr-nkq-kwpqmce vertebral body designated as T12 forthis dictation. Lumbosacral transitional vertebra (LSTV) designated as L5 for this dictation. L5 sac ralization, with fully formed L5-S1 disc and bilateral L5 transverse process widening (Castellvi Ib). ATTENTION TO SPINE NUMBERING IS MANDATORY PRIOR TO PLANNED SPINAL SURGICAL/INTERVENTIONAL PROCEDURE. 2. Convex left thoracolumbar scoliosis, measuring 32 degrees by Thompson method between superior T10and inferior L3 endplates. Convex right lumbar scoliosis, measuring 11 degrees by Thompson method between superior L4 and inferior L5 endplates. 3. Grade I retrolisthesis of L2 on L3 and L3 on L4. 4. L1/L2 osseous fusion across right disc space, new compared with 02/2021. 5. 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 6. No lumbar spine fracture. 7. Degenerative disc height loss at all lumbar levels. At worst severe facet arthropathy. Moderate bilateral SI joint degenerative changes. 8. Abdominal aorta endovascular stent graft. This casewas submitted to the Radiology Gyn Physician (TOP SCREW): Unexpected or Indeterminate Result. CT T SPINE WO CONTRAST Result Date: 03/22/2024 IMPRESSION: THORACIC SPINE CT: 1. Transitional thoracic spine anatomy. 11 rib- bearing thoracic typevertebral bodies, stable compared with 01/[address] C7 left cervical rib and right elongated transverse process. Most superior kgx-qqx-kyakffx vertebral body designated as T12 for this dictation.2. Convex left superior thoracic scoliosis, measuring 34 degrees by Thompson method between superior T1and inferior T4 endplates. Convex right midthoracic scoliosis, measuring 19 degrees by Thompson method between superior T5 and inferior T9 endplates. Convex left thoracolumbar scoliosis, measuring 32 degrees by Thompson method between superior T10 and inferior L3 endplates. 3. Grade I anterolisthesis of T8on T9. Grade I retrolisthesis of T11 on T12. 4. No thoracic spine fracture. 5. Centrilobular emphysema. Right lower lobe part solid subcentimeter pulmonary nodule, new compared with 01/[address] without contrast is recommended. 6. Degenerative disc height loss at all thoracic levels. At worst severe facet arthropathy. 7. Left lung pulmonary nodules, better characterized on January [address] Incompletely included right upper lobe post-treatment changes. LUMBAR SPINE CT: 1. Transitional thoracic spine and lumbar spine anatomy. 6 vkb-tyi-xqhqrms lumbar type vertebral bodies, stable compared with 02/2021 abdomen/pelvis CT. However 11 rib-bearing thoracic type vertebral bodies onaccompanying thoracic spine CT. Most superior qzd-ddg-vklvnih vertebral body designated as T12 for this dictation. Lumbosacral transitional vertebra (LSTV) designated as L5 for this dictation. L5 sacr alization, with fully formed L5-S1 disc and bilateral L5 transverse process widening (Castellvi Ib). ATTENTION TO SPINE NUMBERING IS MANDATORY PRIOR TO PLANNED SPINAL SURGICAL/INTERVENTIONAL PROCEDURE. 2. Convex left thoracolumbar scoliosis, measuring 32 degrees by Thompson method between superior T10 and inferior L3 endplates. Convex right lumbar scoliosis, measuring 11 degrees by Thompson method between superior L4 and inferior L5 endplates. 3. Grade I retrolisthesis of L2 on L3 and L3 on L4. 4. L1/L2 osseous fusion across right disc space, new compared with 02/2021. 5. 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 6. No lumbar spine fracture. 7. Degenerative disc height loss at all lumbar levels. At worst severe facet arthropathy. Moderate bilateral SI joint degenerative changes. 8. Abdominal aorta endovascular stent graft. This case was submitted to the Radiology Gyn Physician (TOP SCREW): Unexpected or Indeterminate Result. XR CHEST 2 VIEWS Result Date: 03/10/2024 IMPRESSION 1. Chronic findings, as above. Dedicated rib series may be more sensitive and specific to left lower rib pathology. There is some protrusion of left anterior rib cartilage on prior CTs in likely relation to the thin body habitus. CT CHEST WO CONTRAST Result Date: 01/17/2024 IMPRESSION Stable scattered pulmonary nodules. No new suspicious nodule. XR C SPINE 4-5 VIEWS Result Date: 01/16/2024 IMPRESSION Moderate to severe degenerative disc disease, progressed. PLAN AND ASSESSMENT: Lung nodules (Primary) No new lung nodules present on CT Chest Repeat CT chest per Hematology / Oncology Reviewed results with patient at visit. 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 Javon Scales DO 2:43 PM 03/29/2024 documented in this encounter Plan of Treatment Upcoming Encounters Date Type Department Care Team (Late st Contact Info) Description 03/30/2024 11:00 AM EDT Office Visit Urology, [place] [address] [place] [address] Jose Lisa MD [address] [place] [address] 04/06/2024 11:00 AM EDT Office Visit Gastroenterology, [facility] [address] [facility] [place] [address] Makayla Moody CRNP [address] [place] [address] 04/21/2024 2:20 PM EST Office Visit Family Practice [address] [place] [address] [address] [place] [phone] Javon Scales DO [address] [place] [address] 05/03/2024 1:45 PM EST Office Visit Urology, [place] [address] [place] [address] Baudilio Rosas MD [address] [place] [address] 07/28/2024 1:00 PM EST Procedure Only Urology, [place] [address] [place] [address] Jose Lisa MD [address] [place] [address] 08/08/2024 2:45 PM EST Office Visit Hematology/Oncology [facility] [address] [place] [address] Martir Lazar MD [address] [place] [address] 09/05/2024 4:00 PM EDT Office Visit Cardiology, [facility] [address] [place] [address] Sridhar Fay MD [address] [place] [address] 09/26/2024 11:00 AM EDT Nurse Only Family Practice [address] [place] [address], [place] [phone] Kelli Steele RN [address] [place] [phone] Health Maintenance Due Date Last Done Comments CKD PHOS USE SMARTSET 38264 07/27/202407/09, 02/25/2022, 01/29/2021 Adult Wellness Visit 09/20/2024 09/21/2023, 01/30/2022, 01/29/2021 Depression Screening 09/20/2024 09/21/2023 Albumin/Creatinine Ratio 03/02/2025 024, 04/26/2023, 07/13/2022, Additional history exists CKD HGB USE SMARTSET 14561 03/11/202503/11, 03/11/2024, 03/10/2024, Additional history exists DTap/Tdap [...] this encounter Medical Devices Implanted Type Area Industrial Ecology Technician Device Identifier Shelf Expiration Date Model / Serial / Lot Bifurcated Endograft Implanted:Qty: 1 on 03/29/2017 by Lisa Emerson MD at OR [facility] N/A: Aorta ENDOLOGIX 01/13/2018 WEL08-22/11 6-40 / [id number] / Proximal Endograft Implanted:Qty: 1 on 03/29/2017 by Lisa Emerson MD at OR [facility] N/A: Aorta ENDOLOGIX 01/16/2020 A25-25/[id number] / [id number] / documented as of this encounter Visit Diagnoses Diagnosis Lung nodules- Primary Other nonspecific abnormal finding of lung field Hypertensive kidney disease with stage 3a chronic kidney disease (HCC) Malignant neoplasm of overlapping sites of bladder (HCC) Malignant neoplasm of other specified sites of bladder Thrombocytopenia (HCC) Thrombocytopenia, unspecified Atherosclerosis of alutiiq coronary artery of alutiiq heart without angina pectoris DYSLIPIDEMIA, GOAL LDL BELOW 100 Other and unspecified hyperlipidemia 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 Care Teams Peripheral Equipment Operator Relationship Specialty Start Date End Date Javon Scales DO [address] [place] [address] PCP - General Internal Medicine 11/19/23 documented as of this encounter
--- OUTSIDE RECORDS SUMMARY | 2024-05-15 18:55 | External Medical Summary | Summary of Care ---
Author Name Unknown Organization [facility] Address [address] [place] [address] Phone [phone] Care Team Providers Care Litigation Claim Representative Name Role Phone Javon Scales DO Primary Care Provider Reason for Referral * Precert (Within 10 days (routine)) - Authorized Specialty Diagnoses / Procedures Referred By Contlaura t Referred To Contact Radiology Diagnoses Nodule of right lung Procedures CT CHEST WO CONTRAST Javon Scales DO [address] [place] [address] Referral ID Status Reason Start Date Expiration Date V isits Requested Visits Authorized [id number] Authorized 03/26/2024 999 999 Reason for Visit * Reason Onset Date Comments Test Results 03/23/202403/24 Encounter Details Date Type Department Care Team (Late st Contact Info) Description 03/23/2024 Telephone Family Practice 65 [facility], [place] [address] [place] [id number] Javon Scales DO [address] [place] [address] Test Results (03/23, 03/24) Allergies Active Allergy Reactions Criticality Noted Date [...] 06/14/2013 Active fluticasone (FLONASE) 50 MCG/ACT nasal sprayIndications:B marahtis Administer 2 Sprays into each nostril daily. [...] needed for Constipation. 1 Tab 05/29/2019 Active clotrimazole-betam ethasone (LOTRISONE) 1-0.05 % cream [...] 1 Capsule daily . Active Saline Nasal [place] 0.65 % Nasal Solution ([place])Indications :Epistaxis Administer into nostril 2 Sprays in the morning AND 2 Sprays before bedtime. 30 mL 12 07/29/2021 Active Nitroglycerin 0.4 MG Sublingual Tablet Sublingual (Nitrostat)Indicat ions:Atheroscleros is of nome coronary artery of nome heart without angina pectoris one tab under tongue as needed for chest pain maximum 3 doses 25 Tablet 5 09/23/2021 Active Pravastatin Sodium 20 MG Oral Tablet (Pravachol)Indicat ions:Dyslipidemia, goal LDL below 100 TAKE 1 TABLET BY MOUTH ONCE DAILY AT BEDTIME 100 Tablet 3 06/10/2022 Active Ketoconazole 2 % External Shampoo (Nizoral)Indicatio ns:Scalp pruritus USE SHAMPOO AT LEAST 3 TIMES PER WEEK, LATHER, WAIT 5 MINUTES THEN RINSE 120 mL 08/14/2022 Active Fluocinonide 0.05 % External SolutionIndication s:Scalp [...] 01/18/2024 Active Atenolol 25 MG Oral Tablet (Tenormin)Indicati ons:HTN, goal below 140/90,Atheroscler osis of nome coronary artery of nome heart without angina pectoris Take 1 tablet [...] as needed for Pain, Severe. 120 Tablet 03/21/2024 4 Discontinue d(Refill) documented as of this encounter (statuses as [...] CORONARY ATHEROSCLEROSIS OF UNSPECIFIED TYPE OF VESSEL, IQUGMIUT OR GRAFT History of bladder cancer documented [...] stent and embolization 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/10 [facility] 08/09:1 month s/p reintervention [...] mRNA, LNP-s, No Pre serve, 2-Dose Series (Rotapanel) 04/24/2021,09/06/2020,08/09/2020 COVID-19, MRNA-LNP, 24-25, P R, 30MCG/0.3ML, IM, 12YRS AND ABOVE ([facility]) 03/20/2024 Covid-19, Mrna, Lnp-s, Pf, B ivalent, 30 Mcg, IM, 12 yrs and above (Rotapanel) 05/19/2022 H1N1 2009 Influenza, IM 05/28/2009 Influenza, [...] Miscellaneous Notes * Telephone Encounter - Christa Paredes OSA - 03/27/2024 8:16 AM EDT Scheduled at 3:30 pt aware * Telephone Encounter - Javon Scales DO - 03/26/2024 7:[address] this week. * Telephone Encounter - Kelli Mota LPN - 03/24/2024 3:43 PM EDT Patient and family is aware, pain is somewhat better. Will do ct scan * Telephone Encounter - Kelli Mota LPN - 03/24/2024 1:32 PM EDT Called, left message for patient to return call. Thank you * Telephone Encounter - Kelli Mota LPN - 03/23/2024 10:52 AM EDT Called, left message for patient to return call. Thank you * Telephone Encounter - Kelli Mota LPN - 03/23/2024 10:51 AM EDT ----- Message from Javon Scales DO sent at 03/23/2024 7:54 AM EDT ----- Disc space narrowing is present at all levels of thoracic and lumbar spine. Scoliosis is present. 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 New right pulmonary nodule is present. Patient needs CT chest without contrast within 1 week. See how pain is. documented in this encounter Plan of Treatment Upcoming Encounters Date Type Department Care Team (Late st Contact Info) Description 03/28/2024 3:15 PM EDT Imaging Radiology [facility], [place] [address] [place] [address] 03/29/2024 2:20 PM EDT Office Visit [facility] [address] [place] [facility] [phone] [facility] [address] 03/30/2024 11:00 AM EDT Office Visit Urology, [place] [address] [place] [address] Jose Lisa MD [address] [place] [address] 04/06/2024 11:00 AM EDT Office Visit Gastroenterology, [facility] 132 [place] [address] Makayla Moody CRNP [address] [place] [address] 04/21/2024 2:20 PM EST Office Visit Family Practice [address] [place] [address] [address] [place] [address] Javon Scales DO [address] [place] [address] 05/03/2024 1:45 PM EST Office Visit Urology, [place] [address] [place] [address] Baudilio Rosas MD [address] [place] [address] 07/28/2024 1:00 PM EST Procedure Only Urology, [place] [address] [place] [address] Jose Lisa MD [address] [place] [address] 08/08/2024 2:45 PM EST Office Visit Hematology/Oncology [facility] 200 [facility] [place] [phone] Martir Lazar MD 200 [facility] [place] [address] 09/05/2024 4:00 PM EDT Office Visit Cardiology, [facility] 132 [place] [address] Sridhar Fay MD 132 [facility] [place] [address] 09/26/2024 11:00 AM EDT Nurse Only Family Practice [address], [place] 293 [place] [address] Kelli Steele RN 293 [place] [address] Scheduled Orders Name Type Priority Associated Diagnoses Orde r Schedule CT CHEST WO CONTRAST Medical Imaging Routine Nodule of right lung Expected: 03/26/2024, Expires: 04/23/2025 Health Maintenance Due Date Last Done Comments CKD PHOS USE SMARTSET 08092 07/27/202407/09, 02/25/2022, 01/29/2021 Adult Wellness Visit 09/20/2024 09/21/2023, 01/30/2022, 01/29/2021 Depression Screening 09/20/2024 09/21/2023 Albumin/Creatinine Ratio 03/02/2025 024, 04/26/2023, 07/13/2022, Additional history exists CKD HGB USE SMARTSET 43449 03/11/202503/11, 03/11/2024, 03/10/2024, Additional history exists DTap/Tdap [...] this encounter Medical Devices Implanted Type Area Ict Help Desk Technician Device Identifier Shelf Expiration Date Model / Serial / Lot Bifurcated Endograft Implanted:Qty: 1 on 03/29/2017 by Lisa Emerson MD at OR [facility] N/A: Aorta ENDOLOGIX 01/13/2018 [id number] 6-40 / [id number] / Proximal Endograft Implanted:Qty: 1 on 03/29/2017 by Lisa Emerson MD at OR [facility] N/A: Aorta ENDOLOGIX 01/16/2020 A25-25/C75- [id number] / [id number] / documented as of this encounter Visit Diagnoses Diagnosis Nodule of right lung- Primary Solitary pulmonary nodule documented in this encounter Advance Directives * Full Code (Latest Code Status on File) Date Activated Date Inactivated Comments 03/29/2017 2:46 PM 03/31/2017 3:33 PM This order reflects the patients wishes and were consensually agreed upon. Care Teams Litigation Claim Representative Relationship Specialty Start Date End Date Javon Scales DO [address] [place] [address] PCP - General Internal Medicine 11/19/23 documented as of this encounter
--- OUTSIDE RECORDS SUMMARY | 2024-05-15 18:55 | External Medical Summary | Summary of Care ---
Author Name Unknown Organization [facility] Address [address] [place] [address] Phone [phone] Care Team Providers Care Mold Presser Name Role Phone Asad Scales DO Primary Care Provider Reason for Visit * Reason Onset Date Comments Medication Refill 03/27/2024 Needs new scri pt Encounter Details Date Type Department Care Team (Late st Contact Info) Description 03/27/2024 Refill Family Practice 65 [facility], [place] [address] [place] [address] Asad Scales DO [address] [place] [address] Chronic midline thoracic back pain; Chronic left-sided [...] Active fluticasone (FLONASE) 50 MCG/ACT nasal sprayIndications:B bharati Administer 2 Sprays into each nostril daily. [...] 1 Capsule daily . Active Saline Nasal [place] 0.65 % Nasal Solution ([place])Indications :Epistaxis Administer into nostril 2 Sprays in the morning AND 2 Sprays before bedtime. 30 mL 12 07/29/2021 Active Nitroglycerin 0.4 MG Sublingual Tablet Sublingual (Nitrostat)Indicat ions:Atheroscleros is of [place] coronary artery of [place] heart without angina pectoris one tab under [...] (Tenormin)Indicati ons:HTN, goal below 140/90,Atheroscler osis of [place] coronary artery of [place] heart without angina pectoris Take 1 tablet [...] for Pain, Severe. 120 Tablet 03/27/2024 Active oxyCODONE HCl 5 MG Oral Tablet [...] CORONARY ATHEROSCLEROSIS OF UNSPECIFIED TYPE OF VESSEL, [place]AL[place] OR GRAFT History of bladder cancer documented [...] and embolization 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/10 [facility] 08/09:1 month s/p reintervention for [...] serve, 2-Dose Series (Pfizer) 04/24/2021,09/06/2020,08/09/2020 COVID-19, MRNA-LNP, 24-25, P R, 30MCG/0.3ML, IM, 12YRS AND ABOVE (Pfizer-[facility]) 03/20/2024 Covid-19, Mrna, Lnp-s, Pf, B [...] Telephone Encounter - Asad Scales DO - 03/27/2024 10:22 AM EDTSigned Prescriptions: Disp Refills oxyCODONE HCl 5 MG Oral Tablet (Oxy IR) 120 Ta*0 Sig: Take 1 Tablet by mouth every 6 hours as needed for Pain, Severe.Authorizing Provider: ASAD SCALES * Telephone Encounter - Asad Scales DO - 03/27/2024 10:21 AM EDT I have reviewed the patients controlled substance dispensing history in the Prescription Drug Monitoring Program in compliance with the [facility] regulations before prescribing a controlled substance. [...] results can be found in Results Review. Dose adjustment on 03/20/2024 * Telephone Encounter - Kelli Mota LPN - 03/27/2024 9:24 AM EDTPending Prescriptions: Disp Refills oxyCODONE HCl 5 MG Oral Tablet (Oxy IR) 120 Ta*0 Sig: Take 1 Tablet by mouth every 6 hours as needed for Pain, Severe. * Telephone Encounter - Kelli Mota LPN - 03/27/2024 9:24 AM EDT On 03/25/2024 there was a 3 day supply sent to pharmacy. Thank you * Telephone Encounter - Christa Paredes, FLY - 03/27/2024 9:04 AM EDT Dosage increased, now out Needs another script called Pending Prescriptions: Disp Refills oxyCODONE HCl 5 MG Oral Tablet (Oxy IR) 120 Ta*0 Sig: Take 1 Tablet by mouth every 6 hours as needed for Pain, Severe. 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 CORONARY ATHEROSCLEROSIS OF UNSPECIFIED TYPE OF VESSEL, KALSKAG OR GRAFT History of bladder cancer Macular [...] without rupture (HCC) Controlled substance agreement signed Labs: Lab Results Component Value Date/Time CREATININE - [facility] 0.9 03/02/2024 10:52 AM CREATININE - [facility] 1.2 06/04/2020 08:29 AM CREATININE PETRONA - [facility] 148 01/12/2023 03:48 PM CREATININE POCT - [facility] 1.1 11/14/2018 09:23 AM CREATININE, 24 HOUR URINE - [facility] 1.359 03/18/2004 10:35 AM CREATININE, RANDOM URINE - [facility] 63 03/02/2024 10:59 AM CREATININE, RANDOM URINE - [facility] 149 02/19/2013 10:23 AM Lab Results Component Value Date/Time POTASSIUM - [facility] 4.5 03/02/2024 10:52 AM POTASSIUM - [facility] 4.4 06/04/2020 08:29 AM Lab Results Component Value Date/Time TSH - [facility] 1.65 11/29/2023 02:09 PM TSH - [facility] 1.59 04/11/2010 11:44 AM Lab Results Component Value Date/Time LDL CHOLESTEROL (CALCULATED) - [facility] 82 04/26/2023 02:03 PM LDL CHOLESTEROL (CALCULATED) - [facility] 71 04/01/2022 02:52 PM LDL CHOLESTEROL (CALCULATED) - [facility] 78 01/23/2020 10:50 AM LDL CHOLESTEROL (CALCULATED) - [facility] 78 03/31/2019 08:25 AM LDL CHOLESTEROL (DIRECT MEASURE) - [facility] NOT APPLICABLE 01/23/2020 10:50 AM LDL CHOLESTEROL (DIRECT MEASURE) - [facility] NOT APPLICABLE 03/31/2019 08:25 AM LDL CHOLESTEROL (DIRECT MEASURE) - [facility] 87 08/14/2010 02:42 PM LDL CHOLESTEROL (DIRECT MEASURE) - [facility] 108 04/11/2010 11:44 AM Lab Results Component Value Date/Time ALT - [facility] 12 03/02/2024 10:52 AM ALT - [facility] 16 01/23/2020 10:50 AM Hemoglobin AIC Results: No results found for: "HEMOGLOBIN A1C" documented in this encounter Plan of Treatment Upcoming Encounters Date Type Department Care Team (Late st Contact Info) Description 03/28/2024 3:15 PM EDT Imaging Radiology [address] 132 [facility] [place] [address] 03/29/2024 2:20 PM EDT Office Visit Family Practice [address], [place] [address] [place] [address] Asad Scales, 293 [facility] [place] [address] 03/30/2024 11:00 AM EDT Office Visit Urology, [place] [address] [place] [address] Jose Lisa MD [address] [place] [address] 04/06/2024 11:00 AM EDT Office Visit [facility], [facility] [address] Makayla Moody CRNP 132 [place] [address] 04/21/2024 2:20 PM EST Office Visit Family Practice [address] [place] [address] [address] [facility] [place] [address] Asad Scales, [address] [place] [address] 05/03/2024 1:45 PM EST Office Visit Urology, [place] [address] [place] [address] Baudilio Rosas MD [address] [place] [address] 07/28/2024 1:00 PM EST Procedure Only Urology, [place] [address] [place] [address] Jose Lisa MD [address] [place] [address] 08/08/2024 2:45 PM EST Office Visit Hematology/Oncology [facility] 200 [facility] [place] [phone] Martir Lazar MD 200 [facility] [place] [address] 09/05/2024 4:00 PM EDT Office Visit Cardiology, [facility] 132 [facility] [place] [address] Sridhar Fay MD 132 [place] [address] 09/26/2024 11:00 AM EDT Nurse Only Family Practice [address], [place] [address] [facility] [place] [address] Kelli Steele, ANIA 293 [facility], [place] [address] Health Maintenance Due Date Last Done Comments CKD PHOS USE SMARTSET 65102 07/27/202407/09, 02/25/2022, 01/29/2021 Adult Wellness Visit 09/20/2024 09/21/2023, 01/30/2022, 01/29/2021 Depression Screening 09/20/2024 09/21/2023 Albumin/Creatinine Ratio 03/02/2025 024, 04/26/2023, 07/13/2022, Additional history exists CKD HGB USE SMARTSET 62384 03/11/202503/11, 03/11/2024, 03/10/2024, Additional history exists DTap/Tdap [...] this encounter Medical Devices Implanted Type Area Section Hand Device Identifier Shelf Expiration Date Model / Serial / Lot Bifurcated Endograft Implanted:Qty: 1 on 03/29/2017 by Lisa Emerson MD at OR [facility] N/A: Aorta ENDOLOGIX 01/13/2018 [id number] 6-40 / [id number] / Proximal Endograft Implanted:Qty: 1 on 03/29/2017 by Lisa Emerson MD at OR [facility] N/A: Aorta ENDOLOGIX 01/16/2020 A25-25/C75- [id number] / [id number] / documented as of this encounter Visit [...] and were consensually agreed upon. Care Teams Mold Presser Relationship Specialty Start Date End Date Asad Scales DO [address] [place] [address] PCP - General Internal Medicine 11/19/23 documented as of this encounter
--- OUTSIDE RECORDS SUMMARY | 2024-05-15 18:55 | External Medical Summary ---
Author Name Unknown Address Unknown Organization : Laboratory Report Ordering Provider Test Date Status LENNY MARTINEZ 03/30/2024 11:08:00 Final Observation Date Value Abnormality Reference (Units ) Status Color of Urine by Auto 03/30/2024 11:08:00 Yellow Light Yellow, Yellow Final Clarity, Urine 03/30/2024 11:08:00 Clear Clear Final Glucose [Mass/volume] in Urine by Automated test strip 03/30/2024 11:08:00 Negative Negative (mg/dL) Final Bilirubin.total [Presence] in Urine by Automated test strip 03/30/2024 11:08:00 Negative Negative Final Ketones [Mass/volume] in Urine by Automated test strip 03/30/2024 11:08:00 Trace Abnormal Negative (mg/dL) Final Specific gravity, Urine 03/30/2024 11:08:00 1.020 1.003-1.030 Final Hemoglobin [Presence] in Urine by Automated test strip 03/30/2024 11:08:00 Large Abnormal Negative Final pH, Urine 03/30/2024 11:08:00 5.5 5.0, 5.5, 6.0, 6.5, 7.0, 7.5 (units) Final Protein [Mass/volume] in Urine by Automated test strip 03/30/2024 11:08:00 100 Abnormal Negative (mg/dL) Final Urobilinogen, Urine 03/30/2024 11:08:00 1.0 0.2, 1.0 (mg/dL) Final Nitrite [Presence] in Urine by Automated test strip 03/30/2024 11:08:00 Negative Negative Final Leukocyte esterase [Presence] in Urine by Automated test strip 03/30/2024 11:08:00 Trace Abnormal Negative Final Performing Location
--- OUTSIDE RECORDS SUMMARY | 2024-05-15 18:56 | External Medical Summary | Summary of Care ---
Author Name Unknown Organization [facility] Address [address] [place] [address] Phone [phone] Care Team Providers Care Laminating Machine Feeder Name Role Phone Javon Scales DO Primary Care Provider [phone] Reason for Visit * Reason Onset Date Comments Test Results 03/22/2024 Unexpected or In determinate Result Encounter Details Date Type Department Care Team (Late st Contact Info) Description 03/22/2024 Telephone Family Practice 65 [facility] [address] [place] [address] Javon Scales DO [address] [place], [place] [phone] Test Results (Unexpected or Indeterminate ... Allergies Active Allergy Reactions Criticality Noted Date [...] as of this encounter (statuses as of 03/22/2024) Medications Medication Sig Dispensed Refills Start Date [...] 1 Capsule daily . Active Saline Nasal [place] 0.65 % Nasal Solution ([place]ennison)Indications: Epistaxis Administer into nostril 2 Sprays in the morning AND 2 Sprays before bedtime. 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 120 Tablet 03/21/2024 Active documented as of this encounter (statuses as of 03/22/2024) Active Problems Problem Noted Date Diagnosed Date [...] CORONARY ATHEROSCLEROSIS OF UNSPECIFIED TYPE OF VESSEL, [place] OR GRAFT History of bladder cancer documented as of this encounter (statuses as of 03/22/2024) Resolved Problems Problem Noted Date Diagnosed Date [...] stent and embolization 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/[address] [facility] 08/09:1 month s/p [...] as of this encounter (statuses as of 03/22/2024) Immunizations Name Administration Dates Next Due COVID-19 mRNA, LNP-s, No Pre serve, 2-Dose Series (Banyan) 04/24/2021,09/06/2020,08/09/2020 COVID-19, MRNA-LNP, 24-25, P R, 30MCG/0.3ML, IM, 12YRS AND ABOVE (Banyan-Comirnaty) 03/20/2024 Covid-19, Mrna, Lnp-s, Pf, B ivalent, 30 Mcg, IM, 12 yrs and above (Banyan) 05/19/2022 H1N1 2009 Influenza, IM 05/28/2009 Influenza, [...] No 04/26/2023 Does the household have a [facility] source [facility] income? (Household - for [...] encounter Miscellaneous Notes * Telephone Encounter - Lore Cortez, FLY - 03/22/2024 1:25 PM EDT Hello- The radiologist discovered an unexpected or indeterminate finding on [facility] Alli Sam . ([id number])and asks that you review the following report. Study Type: CT T SPINE WO CONTRAST Date of Study: 03/22/2024 IMPRESSION: THORACIC SPINE CT: 1. Transitional thoracic spine anatomy. 11 rib-bearing thoracic type vertebral bodies, stable compared with 01/[address] C7 left cervical rib and right elongated transverse process. Most triuvaazofj-mei-ggfolto vertebral body designated as T12 for this dictation. 2. Convex left superior thoracic scoliosis, measuring 34 degrees by Thompson method between superior T1and inferior T4 endplates. Convex right midthoracic scoliosis, measuring 19 degrees by Thompson method between superior T5 and inferior T9 endplates. Convex left thoracolumbar scoliosis, measuring 32 degrees by Thompson method between superior T10 and inferior L3 endplates. 3. Grade I anterolisthesis of T8 on T9. Grade I retrolisthesis of T11 on T12. 4. No thoracic spine fracture. 5. Centrilobular emphysema. Right lower lobe part solid subcentimeter pulmonary nodule, new compared with 01/[address] without contrast is recommended. 6. Degenerative disc height loss at all thoracic levels. At worst severe facet arthropathy. 7. Left lung pulmonary nodules, better characterized on January [address] Incompletely includedright upper lobe post-treatment changes. LUMBAR SPINE CT: 1. Transitional thoracic spine and lumbar spine anatomy. 6 nzj-csf-ymudurf lumbar type vertebral bodies, stable compared with 02/2021 abdomen/pelvis CT. However 11 rib-bearing thoracic type vertebral bodies on accompanying thoracic spine CT. Most superior lnl-oht-glvuyts vertebral body designated asT12 for this dictation. Lumbosacral transitional vertebra (LSTV) designated as L5 for this dictation. L5 sacralization, with fully formed L5-S1 disc and bilateral L5 transverse process widening (Castellvi Ib). ATTENTION TO SPINE NUMBERING IS MANDATORY PRIOR TO PLANNED SPINAL SURGICAL/INTERVENTIONALPROCEDURE. 2. Convex left thoracolumbar scoliosis, measuring 32 [...] changes. 8. Abdominal aorta endovascular stent graft. Please respond to this encounter to acknowledge receipt of this message and take responsibility to ensure this report is reviewed. Thank you, FLY Magallon Client Service Rep [facility] [place] documented in this encounter Plan of Treatment Upcoming Encounters Date Type Department Care Team (Late st Contact Info) Description 03/29/2024 2:20 PM EDT Office Visit Family Practice [address], [place] 293 [place] [address] Javon Sclaes, 293 [place] [address] 03/30/2024 11:00 AM EDT Office Visit Urology, [facility] [address] [place] [address] Jose Lisa MD [address] [place] [address] 04/06/2024 11:00 AM EDT Office Visit Gastroenterology, [facility] [address] [facility] [place] [address] Makayla Moody CRNP [address] [place] [address] 04/21/2024 2:20 PM EST Office Visit Family Practice [address] [place] [address] [address] [place] [address] Javon Scales DO [address] [place] [address] 05/03/2024 1:45 PM EST Office Visit Urology, [facility] [address] [place] [address] Baudilio Rosas MD [address] [place] [address] 07/28/2024 1:00 PM EST Procedure Only Urology, [facility] [address] [place] [address] Jose Lisa MD [address] [place] [address] 08/08/2024 2:45 PM EST Office Visit Hematology/Oncology [facility] [address] [place] [phone] Martir Lazar MD [address] [place] [address] 09/05/2024 4:00 PM EDT Office Visit Cardiology, [facility] [address] [facility] [place] [address] Sridhar Fay MD [address] [place] [address] 09/26/2024 11:00 AM EDT Nurse Only Family Practice [address], [place] 293 [facility] [place], [place] [address] eKlli Steele, ANIA 293 [place] [address] Health Maintenance Due Date Last Done Comments CKD PHOS USE SMARTSET 78724 07/27/202407/09, 02/25/2022, 01/29/2021 Adult Wellness Visit 09/20/2024 09/21/2023, 01/30/2022, 01/29/2021 Depression Screening 09/20/2024 09/21/2023 Albumin/Creatinine Ratio 03/02/2025 024, 04/26/2023, 07/13/2022, Additional history exists CKD HGB USE SMARTSET 18199 03/11/202503/11, 03/11/2024, 03/10/2024, Additional history exists DTap/Tdap [...] this encounter Medical Devices Implanted Type Area Self Storage Manager Device Identifier Shelf Expiration Date Model / Serial / Lot Bifurcated Endograft Implanted:Qty: 1 on 03/29/2017 by Lisa Emerson MD at OR [facility] N/A: Aorta ENDOLOGIX 01/13/2018 [id number]/11 6-40 / [id number] / Proximal Endograft Implanted:Qty: 1 on 03/29/2017 by Lisa Emerson MD at OR [facility] N/A: Aorta ENDOLOGIX 01/16/2020 A25-25/C75- [id number] / [id number] / documented as of this encounter Advance Directives * Full Code (Latest Code Status on File) Date Activated Date Inactivated Comments 03/29/2017 2:46 PM 03/31/2017 3:33 PM This order reflects the patients wishes and were consensually agreed upon. Care Teams Laminating Machine Feeder Relationship Specialty Start Date End Date Javon Scales DO [address] [place] [address] PCP - General Internal Medicine 11/19/23 documented as of this encounter
--- OUTSIDE RECORDS SUMMARY | 2024-05-15 18:56 | External Medical Summary | Summary of Care ---
Author Name Unknown Organization [facility] Address [address] [place] [address] Phone [phone] Care Team Providers Care Mold Operator Name Role Phone Javon Scales DO Primary Care Provider [phone] Reason for Visit * Reason Onset Date Comments Appointment 03/22/2024 Encounter Details Date Type Department Care Team (Late st Contact Info) Description 03/22/2024 Telephone Family Practice 65 [facility], [place] [address] [place] [address] Javon Scales, [address] [place], [place] [phone] Appointment Allergies Active Allergy Reactions Criticality Noted Date [...] 1 Capsule daily . Active Saline Nasal [place] 0.65 % Nasal Solution ([place])Indications: Epistaxis Administer into nostril 2 Sprays in the morning AND 2 Sprays before bedtime. 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 [place]:1 month s/p reintervention for his R [...] mRNA, LNP-s, No Pre serve, 2-Dose Series (Vitrina) 04/24/2021,09/06/2020,08/09/2020 COVID-19, MRNA-LNP, 24-25, P R, 30MCG/0.3ML, IM, 12YRS AND ABOVE (Vitrina-Comirnaty) 03/20/2024 Covid-19, Mrna, Lnp-s, Pf, B ivalent, 30 Mcg, IM, 12 yrs and above (Vitrina) 05/19/2022 H1N1 2009 Influenza, IM 05/28/2009 Influenza, [...] No 04/26/2023 Does the household have a [facility] source [facility]? (Household - [...] encounter Miscellaneous Notes * Telephone Encounter - Crhista Paredes OSA - 03/22/2024 2:04 PM EDT Spoke with daughter She will take porsha so he can keep his appt * Telephone Encounter - Kelli Steele RN - 03/22/2024 1:33 PM EDT Pt is scheduled to f/u with Dr Scales next Wednesday03/29/24 at 2:20 PM and his has an appointment with her eye doctor at 2:30-he will need to change his appt with Dr Scales. manager helpdesk-would you please assist changing pt's appt. Thank you! documented in this encounter Plan of Treatment Upcoming Encounters Date Type Department Care Team (Late st Contact Info) Description 03/29/2024 2:20 PM EDT Office Visit Family Practice [address], [place] 293 [facility] [address] Javon Scales, 293 [facility] [place] [address] 03/30/2024 11:00 AM EDT Office Visit Urology, [place] [address] [place] [address] Jose Lisa MD [address] [place] [address] 04/06/2024 11:00 AM EDT Office Visit Gastroenterology, [facility] 132 [place] [address] Makayla Moody CRNP 132 [facility] [address] 04/21/2024 2:20 PM EST Office Visit Family Practice [address] [place] [address] [address] [place] [address] Javon Scales DO [address] [place] [address] 05/03/2024 1:45 PM EST Office Visit Urology, [place] [address] [place] [address] Baudilio Rosas MD [address] [place] [address] 07/28/2024 1:00 PM EST Procedure Only Urology, [place] [address] [place] [address] Jose Lisa MD [address] [place] [address] 08/08/2024 2:45 PM EST Office Visit [facility]ematology[facility]On[facility] [address] [place] [phone] Martir Lazar MD [address] [place] [address] 09/05/2024 4:00 PM EDT Office Visit Cardiology, [facility] 132 [facility], [place] [address] Sridhar Fay MD [address] [place] [address] 09/26/2024 11:00 AM EDT Nurse Only Family Practice [address], [place] 293 [facility] [address] Kelli Steele, ANIA 293 [facility] [place] [address] Health Maintenance Due Date Last Done Comments CKD PHOS USE SMARTSET 99866 07/27/202407/09, 02/25/2022, 01/29/2021 Adult Wellness Visit 09/20/2024 09/21/2023, 01/30/2022, 01/29/2021 Depression Screening 09/20/2024 09/21/2023 Albumin/Creatinine Ratio 03/02/2025 024, 04/26/2023, 07/13/2022, Additional history exists CKD HGB USE SMARTSET 17632 03/11/202503/11, 03/11/2024, 03/10/2024, Additional history exists DTap/Tdap [...] this encounter Medical Devices Implanted Type Area Dehydrator Device Identifier Shelf Expiration Date Model / Serial / Lot Bifurcated Endograft Implanted:Qty: 1 on 03/29/2017 by Lisa Emerson MD at [place] [facility] N/A: Aorta ENDOLOGIX 01/13/2018 [id number] 6-40 / [id number] / Proximal Endograft Implanted:Qty: 1 on 03/29/2017 by Lisa Emerson MD at OR [facility] N/A: Aorta ENDOLOGIX 01/16/2020 A25-25/C75- O20V / [id number] / documented as of this encounter Advance Directives * Full Code (Latest Code Status on File) Date Activated Date Inactivated Comments 03/29/2017 2:46 PM 03/31/2017 3:33 PM This order reflects the patients wishes and were consensually agreed upon. Care Teams Mold Operator Relationship Specialty Start Date End Date Javon Scales DO [address] [place] [address] PCP - General Internal Medicine 11/19/23 documented as of this encounter
--- OUTSIDE RECORDS SUMMARY | 2024-05-15 18:56 | External Medical Summary | Summary of Care ---
Author Name Unknown Organization [facility] Address [address] [place] [address] Phone [phone] Care Team Providers Care Executive Recruiter Name Role Phone Javon Scales DO Primary Care Provider [phone] Reason for Visit * Reason Onset Date Comments Test Results 03/22/2024 Unexpected or In determinate Result Encounter Details Date Type Department Care Team (Late st Contact Info) Description 03/22/2024 Telephone Family Practice 65 [facility] [address] [place] [address] Javon Scales DO [address] [place], [place] [phone] Test Results (Unexpected or Indeterminate ... Allergies [...] as of this encounter (statuses as of 03/23/2024) Medications Medication Sig Dispensed Refills Start Date [...] 1 Capsule daily . Active Saline Nasal [place] 0.65 % Nasal Solution (Oso)Indications: Epistaxis Administer into nostril 2 Sprays in the morning AND 2 Sprays before bedtime. 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 120 Tablet 03/21/2024 Active documented as of this encounter (statuses as of 03/23/2024) Active Problems Problem Noted Date Diagnosed Date [...] CORONARY ATHEROSCLEROSIS OF UNSPECIFIED TYPE OF VESSEL, [place]TER[place] OR GRAFT History of bladder cancer documented as of this encounter (statuses as of 03/23/2024) Resolved Problems Problem Noted Date Diagnosed Date [...] artery 04/10 [facility] 08/09:1 month s/p reintervention for his R [...] as of this encounter (statuses as of 03/23/2024) Immunizations Name Administration Dates Next Due COVID-19 mRNA, LNP-s, No Pre serve, 2-Dose Series ([employer] 04/24/2021,09/06/2020,08/09/2020 COVID-19, MRNA-LNP, 24-25, P R, 30MCG/0.3ML, IM, 12YRS AND ABOVE ([employer]Comirnaty) 03/20/2024 Covid-19, Mrna, Lnp-s, Pf, B ivalent, 30 Mcg, IM, 12 yrs and above ([employer] 05/19/2022 H1N1 2009 Influenza, IM 05/28/2009 Influenza, [...] No 04/26/2023 Does the household have a [facility] source [facility]? (Household - for [...] discovered an unexpected or indeterminate finding on [facility] Alli Sam . ([id number])and asks that you review the following report. Study Type: CT T SPINE WO CONTRAST Date of Study: 03/22/2024 IMPRESSION: THORACIC SPINE CT: 1. Transitional thoracic spine anatomy. 11 rib-bearing thoracic type vertebral bodies, stable compared with 01/[address] C7 left cervical rib and right elongated transverse process. Most njwlcpfupyv-rnv-kkkreqd vertebral body designated as T12 for this [...] thoracic spine and lumbar spine anatomy. 6 gzf-zph-tixiasw lumbar type vertebral bodies, stable compared with 02/2021 abdomen/pelvis CT. However 11 rib-bearing thoracic type vertebral bodies on accompanying thoracic spine CT. Most superior kad-wle-ghwygfr vertebral body designated asT12 for this dictation. [...] Thank you, FLY Magallon Client Service Rep [facility] [place] documented in this encounter Plan of Treatment Upcoming Encounters Date Type Department Care Team (Late st Contact Info) Description 03/29/2024 2:20 PM EDT Office Visit Family Practice [address], [place] [address] [place] [address] Javon Scales, [address] [place] [address] 03/30/2024 11:00 AM EDT Office Visit Urology, [place] [address] [place] [address] Jose Lisa MD [address] [place] [address] 04/06/2024 11:00 AM EDT Office Visit Gastroenterology, [facility] 132 [place] [address] Makayla Moody CRNP [address] [place] [address] 04/21/2024 2:20 PM EST Office Visit Family Practice [address] [place] [address] [address] [place] [address] Javon Scales DO [address] [place] [address] 05/03/2024 1:45 PM EST Office Visit Urology, [place] [address] [place] [address] Baudilio Rosas MD [address] [place] [address] 07/28/2024 1:00 PM EST Procedure Only Urology, [place] [address] [place] [address] Jose Lisa MD [address] [place] [address] 08/08/2024 2:45 PM EST Office Visit Hematology/Oncology [facility] [address] [place] [phone] aMrtir Lazar MD [address] [place] [address] 09/05/2024 4:00 PM EDT Office Visit Cardiology, [facility] 132 [place] [address] Sridhar Fay MD [address] [place] [address] 09/26/2024 11:00 AM EDT Nurse Only Family Practice [address] [place] [address] [facility], [place] [address] Kelli Steele, ANIA [address] [place] [address] Health Maintenance Due Date Last Done Comments CKD PHOS USE SMARTSET 23202 07/27/202407/09, 02/25/2022, 01/29/2021 Adult Wellness Visit 09/20/2024 09/21/2023, 01/30/2022, 01/29/2021 Depression Screening 09/20/2024 09/21/2023 Albumin/Creatinine Ratio 03/02/2025 024, 04/26/2023, 07/13/2022, Additional history exists CKD HGB USE SMARTSET 99925 03/11/202503/11, 03/11/2024, 03/10/2024, Additional history exists DTap/Tdap [...] this encounter Medical Devices Implanted Type Area Airport Operations Coordinator Device Identifier Shelf Expiration Date Model / Serial / Lot Bifurcated Endograft Implanted:Qty: 1 on 03/29/2017 by Lisa Emerson MD at [place] [facility] N/A: Aorta ENDOLOGIX 01/13/2018 [id number] 6-40 / [id number] / Proximal Endograft Implanted:Qty: 1 on 03/29/2017 by Lisa Emerson MD at [place] [facility] N/A: Aorta ENDOLOGIX 01/16/2020 A25-25/C75- O20V / [id number] / documented as of this encounter Advance Directives * Full Code (Latest Code Status on File) Date Activated Date Inactivated Comments 03/29/2017 2:46 PM 03/31/2017 3:33 PM This order reflects the patients wishes and were consensually agreed upon. Care Teams Executive Recruiter Relationship Specialty Start Date End Date Javon Scales DO [address] [place] [address] PCP - General Internal Medicine 11/19/23 documented as of this encounter
--- OUTSIDE RECORDS SUMMARY | 2024-05-15 18:56 | External Medical Summary | Summary of Care ---
Author Name Unknown Organization [facility] Address [address] [place] [address] Phone [phone] Care Team Providers Care Medical Massage Therapist Name Role Phone Javon Scales DO Primary Care Provider [phone] Reason for Visit * Reason Onset Date Comments Test Results 03/22/2024 Unexpected or In determinate Result Encounter Details Date Type Department Care Team (Late st Contact Info) Description 03/22/2024 Telephone Family Practice 65 [facility] [address] [place] [address] Javon Scales DO [address] [place], [place] [phone] Test Results (Unexpected or Indeterminate ... Allergies [...] 1 Capsule daily . Active Saline Nasal Chunky 0.65 % Nasal Solution ([place])Indications: Epistaxis Administer into nostril 2 Sprays in the morning AND 2 Sprays before bedtime. 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,Chronic left-sided [...] CORONARY ATHEROSCLEROSIS OF UNSPECIFIED TYPE OF VESSEL, [place] OR GRAFT History of bladder cancer documented [...] stent and embolization 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/10 [facility] 08/09:1 month s/p reintervention for his R [...] mRNA, LNP-s, No Pre serve, 2-Dose Series ([employer]) 04/24/2021,09/06/2020,08/09/2020 COVID-19, MRNA-LNP, 24-25, P R, 30MCG/0.3ML, IM, 12YRS AND ABOVE ([employer]-Comirnaty) 03/20/2024 Covid-19, Mrna, Lnp-s, Pf, B ivalent, 30 Mcg, IM, 12 yrs and above ([employer]) 05/19/2022 H1N1 2009 Influenza, IM 05/28/2009 Influenza, [...] Encounter - Kelli Mota LPN - 03/23/2024 10:55 AM EDT See result nodule * Telephone Encounter - Lore Cortez OSA - 03/22/2024 1:25 PM EDT Hello- The radiologist discovered an unexpected or indeterminate finding on [facility]. ([id number])and asks that you review the following report. Study Type: CT T SPINE WO CONTRAST Date of Study: 03/22/2024 IMPRESSION: THORACIC SPINE CT: 1. Transitional thoracic spine anatomy. 11 rib-bearing thoracic type vertebral bodies, stable compared with 01/[address] C7 left cervical rib and right elongated transverse process. Most ilnbokidlpa-iim-woeepcd vertebral body designated as T12 for this [...] thoracic spine and lumbar spine anatomy. 6 rkl-ggv-kpzuqzh lumbar type vertebral bodies, stable compared with 02/2021 abdomen/pelvis CT. However 11 rib-bearing thoracic type vertebral bodies on accompanying thoracic spine CT. Most superior rzp-isb-ilpecax vertebral body designated asT12 for this dictation. [...] Thank you, FLY Magallon Client Service Rep [facility] documented in this encounter Plan of Treatment Upcoming Encounters Date Type Department Care Team (Late st Contact Info) Description 03/29/2024 2:20 PM EDT Office Visit Family Practice [address] [place] [address] [address] [place] [address] Javon Scales, [address] [place] [address] 03/30/2024 11:00 AM EDT Office Visit Urology, [place] [address] [place] [address] Jose Lisa MD [address] [place] [address] 04/06/2024 11:00 AM EDT Office Visit Gastroenterology, [facility] [address] [place] [address] Makayla Moody CRNP 132 [place] [address] 04/21/2024 2:20 PM EST Office Visit Family Practice [address] [place] [address] [address] [place] [address] Javon Scales, [address] [place] [address] 05/03/2024 1:45 PM EST Office Visit Urology, [place] [address] [place] [address] Baudilio Rosas MD [address] [place] [address] 07/28/2024 1:00 PM EST Procedure Only Urology, [place] [address] [place] [address] Jose Lisa MD [address] [place] [address] 08/08/2024 2:45 PM EST Office Visit Hematology/Oncology [facility] 200 [facility] [place] [address] Martir Lazar MD 200 [place] [address] 09/05/2024 4:00 PM EDT Office Visit Cardiology, [facility] 132 [facility] [place] [address] Sridhar Fay MD 132 [facility] [place] [address] 09/26/2024 11:00 AM EDT Nurse Only Family Practice 65 [facility] [place] 293 [place] [address] Kelli Steele RN 293 [place] [address] Health Maintenance Due Date Last Done Comments CKD PHOS USE SMARTSET 93021 07/27/202407/09, 02/25/2022, 01/29/2021 Adult Wellness Visit 09/20/2024 09/21/2023, 01/30/2022, 01/29/2021 Depression Screening 09/20/2024 09/21/2023 Albumin/Creatinine Ratio 03/02/2025 024, 04/26/2023, 07/13/2022, Additional history exists CKD HGB USE SMARTSET 00121 03/11/202503/11, 03/11/2024, 03/10/2024, Additional history exists DTap/Tdap [...] this encounter Medical Devices Implanted Type Area Briquetter Operator Device Identifier Shelf Expiration Date Model / Serial / Lot Bifurcated Endograft Implanted:Qty: 1 on 03/29/2017 by Lisa Emerson MD at OR [facility] N/A: Aorta ENDOLOGIX 01/13/2018 [id number] 6-40 / [id number] / Proximal Endograft Implanted:Qty: 1 on 03/29/2017 by Lisa Emerson MD at OR [facility] N/A: Aorta ENDOLOGIX 01/16/2020 A25-25/C75- [id number] / [id number] / documented as of this encounter Advance Directives * Full Code (Latest Code Status on File) Date Activated Date Inactivated Comments 03/29/2017 2:46 PM 03/31/2017 3:33 PM This order reflects the patients wishes and were consensually agreed upon. Care Teams Medical Massage Therapist Relationship Specialty Start Date End Date Javon Scales DO [address] [place] [address] PCP - General Internal Medicine 11/19/23 documented as of this encounter
--- OUTSIDE RECORDS SUMMARY | 2024-05-15 18:56 | External Medical Summary | Summary of Care ---
Author Name Unknown Organization [facility] Address [address] [place] [address] Phone [phone] Care Team Providers Care Rn Physician Office Name Role Phone Javon Scales DO Primary Care Provider [phone] Reason for Referral * Precert (Within 10 days (routine)) - Authorized Specialty Diagnoses / Procedures Referred By Contlaura t Referred To Contact Radiology Diagnoses Nodule of right lung Procedures CT CHEST WO CONTRAST Javon Scales DO [address] [place] [address] Referral ID Status Reason Start Date Expiration Date V isits Requested Visits Authorized [id number] Authorized 03/26/2024 999 999 Reason for Visit * Reason Onset Date Comments Test Results 03/23/202403/24 Encounter Details Date Type Department Care Team (Late st Contact Info) Description 03/23/2024 Telephone Family Practice 65 [facility] [place] [address] [place] [address] Javon Scales DO [address] [place] [address] Test Results (03/23, 03/24) Allergies Active Allergy [...] 1 Capsule daily . Active Saline Nasal [place] 0.65 % Nasal Solution ([place])Indications: Epistaxis Administer into nostril 2 Sprays in the morning AND 2 Sprays before bedtime. 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,Chronic left-sided low [...] CORONARY ATHEROSCLEROSIS OF UNSPECIFIED TYPE OF VESSEL, [place] AP[place] OR GRAFT History of bladder cancer documented [...] stent and embolization 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/10 [facility] 08/09:1 month s/p reintervention [...] mRNA, LNP-s, No Pre serve, 2-Dose Series ([facility]) 04/24/2021,09/06/2020,08/09/2020 COVID-19, MRNA-LNP, 24-25, P R, 30MCG/0.3ML, IM, 12YRS AND ABOVE ([facility]) 03/20/2024 Covid-19, Mrna, Lnp-s, Pf, B [...] Description 03/28/2024 3:15 PM EDT Imaging Radiology [address] 132 [facility] [place] [address] 03/29/2024 2:20 PM EDT Office Visit Family Practice [address], [place] 293 [place] [address] Javon Scales DO [facility] [place] [address] 03/30/2024 11:00 AM EDT Office Visit Urology, [place] [address] [place] [address] Jose Lisa MD [address] [place] [address] 04/06/2024 11:00 AM EDT Office Visit Gastroenterology, [facility] 132 [place] [address] Makayla Moody CRNP 132 [facility] [place] [address] 04/21/2024 2:20 PM EST Office Visit Family Practice [address] [place] [address] 293 [place] [address] Javon Scales DO 293 [facility] [place] [address] 05/03/2024 1:45 PM EST Office Visit Urology, [place] [address] [place] [address] Baudilio Rosas MD [address] [place] [address] 07/28/2024 1:00 PM EST Procedure Only Urology, [place] [address] [place] [address] Jose Lisa MD [address] [place] [address] 08/08/2024 2:45 PM EST Office Visit Hematology/On[facility] 200 [facility] [place], [place] [phone] Martir Lazar MD [address] [place] [address] 09/05/2024 4:00 PM EDT Office Visit Cardiology, [facility] 132 [place] [address] Sridhar Fay MD [address] [place] [address] 09/26/2024 11:00 AM EDT Nurse Only Family Practice [address], [place] 293 [place] [address] Kelli Steele, ANIA 293 [facility] [place] [address] Scheduled Orders Name Type Priority Associated Diagnoses Orde r Schedule CT CHEST WO CONTRAST Medical Imaging Routine Nodule of right lung Expected: 03/26/2024, Expires: 04/23/2025 Health Maintenance Due Date Last Done Comments CKD PHOS USE SMARTSET 88850 07/27/202407/09, 02/25/2022, 01/29/2021 Adult Wellness Visit 09/20/2024 09/21/2023, 01/30/2022, 01/29/2021 Depression Screening 09/20/2024 09/21/2023 Albumin/Creatinine Ratio 03/02/2025 024, 04/26/2023, 07/13/2022, Additional history exists CKD HGB USE SMARTSET 60351 03/11/202503/11, 03/11/2024, 03/10/2024, Additional history exists DTap/Tdap [...] this encounter Medical Devices Implanted Type Area Screen Room Operator Device Identifier Shelf Expiration Date Model / Serial / Lot Bifurcated Endograft Implanted:Qty: 1 on 03/29/2017 by Lisa Emerson MD at [place] [facility] N/A: Aorta ENDOLOGIX 01/13/2018 [id number]/11 6-40 / [id number] / Proximal Endograft Implanted:Qty: 1 on 03/29/2017 by Lisa Emerson MD at [place] [facility] N/A: Aorta ENDOLOGIX 01/16/2020 A25-25/C75- [id number] / [id number] / documented as of this encounter Visit Diagnoses Diagnosis Nodule of right lung- Primary Solitary pulmonary nodule documented in this encounter Advance Directives * Full Code (Latest Code Status on File) Date Activated Date Inactivated Comments 03/29/2017 2:46 PM 03/31/2017 3:33 PM This order reflects the patients wishes and were consensually agreed upon. Care Teams Rn Physician Office Relationship Specialty Start Date End Date Javon Scales DO 293 [facility] [place] [address] PCP - General Internal Medicine 11/19/23 documented as of this encounter
--- OUTSIDE RECORDS SUMMARY | 2024-05-15 18:56 | External Medical Summary | Summary of Care ---
Author Name Unknown Organization [facility] Address [address] [place] [address] Phone [phone] Care Team Providers Care Yield Analyst Name Role Phone Javon Scales DO Primary Care Provider [phone] Reason for Visit * Reason Onset Date Comments Test Results 03/22/2024 Unexpected or In determinate Result Encounter Details Date Type Department Care Team (Late st Contact Info) Description 03/22/2024 Telephone Family Practice 65 [facility] [address] [place] [address] Javon Scales DO [address] [place], [place] [phone] Test Results (Unexpected or Indeterminate ... Allergies [...] 1 Capsule daily . Active Saline Nasal [place] 0.65 % Nasal Solution ([place])Indications: Epistaxis Administer into nostril 2 Sprays in the morning AND 2 Sprays before bedtime. 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,Chronic left-sided low [...] CORONARY ATHEROSCLEROSIS OF UNSPECIFIED TYPE OF VESSEL, LITTLE TRAVERSE OR GRAFT History of bladder cancer documented [...] stent and embolization 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/10 [facility] 08/09:1 month s/p reintervention for his R [...] mRNA, LNP-s, No Pre serve, 2-Dose Series ([employer]) 04/24/2021,09/06/2020,08/09/2020 COVID-19, MRNA-LNP, 24-25, P R, 30MCG/0.3ML, IM, 12YRS AND ABOVE ([employer]-Comirnat[employer]) 03/20/2024 Covid-19, Mrna, Lnp-s, Pf, B ivalent, 30 Mcg, IM, 12 yrs and above ([employer]) 05/19/2022 H1N1 2009 Influenza, IM 05/28/2009 Influenza, [...] No 04/26/2023 Does the household have a [facility] source of income? (Household - for [...] discovered an unexpected or indeterminate finding on [facility] . ([id number])and asks that you review the following report. Study Type: CT T SPINE WO CONTRAST Date of Study: 03/22/2024 IMPRESSION: THORACIC SPINE CT: 1. Transitional thoracic spine anatomy. 11 rib-bearing thoracic type vertebral bodies, stable compared with 01/[address] C7 left cervical rib and right elongated transverse process. Most awvizbfdbaa-twe-ixppkvb vertebral body designated as T12 for this [...] thoracic spine and lumbar spine anatomy. 6 hzj-jcd-tuusxvb lumbar type vertebral bodies, stable compared with 02/2021 abdomen/pelvis CT. However 11 rib-bearing thoracic type vertebral bodies on accompanying thoracic spine CT. Most superior vdt-ugj-wduhrcv vertebral body designated asT12 for this dictation. [...] Thank you, FLY Magallon Client Service Rep [facility] documented in this encounter Plan of Treatment Upcoming Encounters Date Type Department Care Team (Late st Contact Info) Description 03/29/2024 2:20 PM EDT Office Visit Family Practice [address], [place] 293 [place] [address] Javon Scales, 293 [place] [address] 03/30/2024 11:00 AM EDT Office Visit Urology, [place] [address] [place] [address] Jose Lisa MD [address] [place] [address] 04/06/2024 11:00 AM EDT Office Visit Gastroenterology, [facility] 132 [place] [address] Makayla Moody CRNP 132 [place] [address] 04/21/2024 2:20 PM EST Office Visit Family Practice [address] [place] [address] [address] [place] [address] Javon Scales DO [address] [place] [address] 05/03/2024 1:45 PM EST Office Visit Urology, [place] [address] [place] [address] Baudilio Rosas MD [address] [place] [address] 07/28/2024 1:00 PM EST Procedure Only Urology, [place] [address] [place] [address] Jose Lisa MD [address] [place] [address] 08/08/2024 2:45 PM EST Office Visit Hematology/Oncology [facility] [address] [place] [phone] Martir Lazar MD [address] [place] [address] 09/05/2024 4:00 PM EDT Office Visit Cardiology, [facility] 132 [place] [address] Sridhar Fay MD [address] [place] [address] 09/26/2024 11:00 AM EDT Nurse Only Family Practice [address], [place] 293 [facility], [place] [address] Kelli Steele, ANIA 293 [place] [address] Health Maintenance Due Date Last Done Comments CKD PHOS USE SMARTSET 40708 07/27/202407/09, 02/25/2022, 01/29/2021 Adult Wellness Visit 09/20/2024 09/21/2023, 01/30/2022, 01/29/2021 Depression Screening 09/20/2024 09/21/2023 Albumin/Creatinine Ratio 03/02/2025 024, 04/26/2023, 07/13/2022, Additional history exists CKD HGB USE SMARTSET 53970 03/11/202503/11, 03/11/2024, 03/10/2024, Additional history exists DTap/Tdap [...] this encounter Medical Devices Implanted Type 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 Reeling Machine Operator Device Identifier Shelf Expiration Date Model / Serial / Lot Bifurcated Endograft Implanted:Qty: 1 on 03/29/2017 by Lisa Emerson MD at [place] [facility] N/A: Aorta ENDOLOGIX 01/13/2018 PLC38-59/11 6-40 / [id number] / Proximal Endograft Implanted:Qty: 1 on 03/29/2017 by Lisa Emerson MD at OR [facility] N/A: Aorta ENDOLOGIX 01/16/2020 A25-25/C75- [id number] / [id number] / documented as of this encounter Advance Directives * Full Code (Latest Code Status on File) Date Activated Date Inactivated Comments 03/29/2017 2:46 PM 03/31/2017 3:33 PM This order reflects the patients wishes and were consensually agreed upon. Care Teams Yield Analyst Relationship Specialty Start Date End Date Javon Scales DO [address] [place] [address] PCP - General Internal Medicine 11/19/23 documented as of this encounter
--- OUTSIDE RECORDS SUMMARY | 2024-05-15 18:57 | External Medical Summary | Summary of Care ---
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 Name Role Phone Javon Scales DO Primary Care Provider [phone] Reason for Referral * Precert (Within 10 days (routine)) - Authorized Specialty Diagnoses / Procedures Referred By Contac t Referred To Contact Radiology Diagnoses Chronic midline thoracic back pain Scoliosis of thoracolumbar region due to degenerative disease of spine in adult Procedures CT T SPINE WO CONTRAST Javon Scales DO [address] [place] [address] Referral ID Status Reason Start Date Expiration Date V isits Requested Visits Authorized [id number] Authorized 03/20/2024 999 999 * Precert (Within 10 days (routine)) - Authorized Specialty Diagnoses / Procedures Referred By Contac t Referred To Contact Radiology Diagnoses Chronic left-sided low back pain without sciatica Scoliosis of thoracolumbar region due to degenerative disease of spine in adult Procedures CT L SPINE WO CONTRAST Javon Scales DO [address] [place] [address] Referral ID Status Reason Start Date Expiration Date V isits Requested Visits Authorized [id number] Authorized 03/20/2024 999 999 Reason for Visit * Reason Comments Follow Up Encounter Details Date Type Department Care Team (Latest Contact Info) Description 03/20/2024 3:40 PM EDT Office Visit Family Practice [address] [place] [address] [place] [address] Javon Scales, [address] [facility] [place] [address] Chronic midline thoracic back pain*; Chronic left-sided low back pain without sciatica; Spinal stenosis of lumbar region at multiple levels; History of bladder cancer; Atherosclerosis of re[place]-sparks coronary 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 1 Bottle 5 6 Active Docusate Sodium 100 MG Oral Capsule One pill by mouth twice a day as needed 60 Cap 11 8 Active Multiple Vitamins-Mineral s (MULTIVITAMIN ADULT EXTRA C) CHEW 1 Tablet in the morning. 9 Active senna-docusate (SENOKOT S) 8.6-50 MG per tabletIndication s:Drug induced constipation,Chr onic bilateral low back pain with bilateral sciatica Take 1 Tab by mouth 2 times a day as needed for Constipation. 1 Tab 9 Active clotrimazole-bet amethasone (LOTRISONE) 1-0.05 % cream APPLY TOPICALLY TO RIGHT LEG AREA TWICE DAILY 135 g 5 0 Active Additional Information Patient not taking.Informant: Patient, Reported on 03/13/2024 Triamcinolone Acetonide 0.1 % External Lotion (Aristocort) Apply to affected area at groin twice daily as needed 60 mL 2 1 Active Additional Information Patient not taking.Informant: Patient, Reported on 03/13/2024 PreserVision AREDS 2+Multi Vit Oral Capsule Take by mouth 1 Capsule daily . Active Saline Nasal Brewster 0.65 % Nasal Solution (Sussex)Indicatio ns:Epistaxis Administer into nostril 2 Sprays in the morning AND 2 Sprays before bedtime. 30 mL 12 2 Active Nitroglycerin 0.4 MG Sublingual Tablet Sublingual (Nitrostat)Indic ations:Atheroscl erosis of reno-sparks coronary artery of re[place]sparks heart without angina pectoris one tab under tongue as needed for chest pain maximum 3 doses 25 Tablet 5 2 Active Pravastatin Sodium 20 MG Oral Tablet (Pravachol)Indic ations:Dyslipide júnior, goal LDL below 100 TAKE 1 TABLET BY MOUTH ONCE DAILY AT BEDTIME 100 Tablet 3 3 Active Ketoconazole 2 % External Shampoo (Nizoral)Indicat ions:Scalp pruritus USE SHAMPOO AT LEAST 3 TIMES PER WEEK, LATHER, WAIT 5 MINUTES THEN RINSE 120 mL 3 Active Fluocinonide 0.05 % External SolutionIndicati ons:Scalp pruritus APPLY SOLUTION TOPICALLY TO AFFECTED AREA OF SCALP NIGHTLY NEEDED FOR ITCHING 60 mL 3 Active Aspirin 81 MG Oral Tablet Delayed Release Take 1 Tablet by mouth in the morning. 4 Active Silodosin 4 MG Oral Capsule (Rapaflo) Take 1 Tablet by mouth in the morning. 90 Capsule 3 4 Active Amoxicillin 500 MG Oral Capsule (Amoxil) TAKE FOUR CAPSULES BY MOUTH ONE HOUR BEFORE APPOINTMENT 4 Capsule 4 Active amLODIPine Besylate 2.5 MG Oral Tablet (Norvasc)Indicat ions:HTN, goal below 140/90 TAKE 1 TABLET BY MOUTH IN THE MORNING 100 Tablet 1 4 Active Atenolol 25 MG Oral Tablet (Tenormin)Indica tions:HTN, goal below 140/90,Atheroscl erosis of re[place]-sparks coronary artery of re[place]-sparks heart without angina pectoris Take 1 tablet by mouth twice daily 200 Tablet 1 4 Active Polyethylene Glycol 3350 17 GM/SCOOP Oral Powder (MiraLax)Indicat ions:Other constipation Take 17 g by mouth in the morning. Take 1 capful daily in the morning.. 4 Active Psyllium 58.6 % Oral Packet (Metamucil) Take 1 Packet by mouth in the morning. 4 Active Preparation H 0.25-14-74.9 % Rectal Ointment (Preparation H) Administer into the rectum 4 times a day as needed (Hemorrhoids). 4 Active oxyCODONE HCl 5 MG Oral Tablet (Oxy IR)Indications:C hronic midline thoracic back pain,Chronic left-sided low back pain without sciatica,Spinal stenosis of lumbar region at multiple levels Take 1 Tablet by mouth every 6 hours as needed for Pain, Severe. 120 Tablet 4 Active oxyCODONE HCl 5 MG Oral Tablet (Oxy IR)Indications:L umbar degenerative disc disease,Spinal stenosis of lumbar region at multiple levels,Chronic bilateral low back pain with bilateral sciatica Take 1 Tablet by mouth every 8 hours as needed for Pain, Severe. 90 Tablet 4 03/20/20 24 Discontinued(Ref ill) dexAMETHasone 4 MG Oral Tablet (Decadron)Indica tions:Thrombocyt openia (HCC) Take 10 Tablets by mouth daily with breakfast for 4 days. 40 Tablet 4 03/20/20 24 Discontinued documented as of this encounter [...] CORONARY ATHEROSCLEROSIS OF UNSPECIFIED TYPE OF VESSEL, OUZINKIE OR GRAFT History of bladder cancer documented [...] stent and embolization 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/10 [facility] 08/09:1 month s/p reintervention for his R [...] mRNA, LNP-s, No Pre serve, 2-Dose Series ([employer]) 04/24/2021,09/06/2020,08/09/2020 COVID-19, MRNA-LNP, 24-25, P R, 30MCG/0.3ML, IM, 12YRS AND ABOVE [facility]) 03/20/2024 Covid-19, Mrna, Lnp-s, Pf, B [...] money to buy more. Never true 04/26/20 Within the past 12 months, t he [...] Sign Reading Time Taken Comments Blood Pressure 122/64 03/20/2024 3:42 PM EDT Pulse 74 03/20/2024 3:42 PM EDT Temperature 37.1 C (98.7 F) 03/20/2024 3:42 PM ED T Respiratory Rate 16 03/20/2024 3:42 PM EDT Oxygen Saturation 97% 03/20/2024 3:42 PM EDT Inhaled Oxygen Concentration - - Weight 60.5 kg (133 lb 6.4 oz) 03/20/2024 3:42 P M EDT Height 167.6 cm (5' 6") 03/20/2024 3:42 PM EDT Body Mass Index 21.53 03/20/2024 3:42 PM EDT documented in this encounter Functional [...] encounter Progress Notes * Javon Scales, - 03/21/2024 8:35 AM EDT SUBJECTIVE: Cedric Sam Jr. is a 88 year old male. Chief Complaint Patient presents with Follow Up HPI: Patient is an 88 year old male with a history of CAD, CABG, right iliac stent graft, endovascular AAA repair, AAA endoleak repair, HTN, Hyperlipidemia, Adenocarcinoma of the Lung treated with radiation, Recurrent Bladder Cancer, Thrombocytopenia, and Lumbar Disc Disease that is seen for back pain and rib pain that has worsened. He is having difficulty walking.No recent falls or chest trauma. Cystoscopy was done on 03/13/2024. Posterior bladder wall lesion was resected. 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 No chest pain or shortness of breath are present. Weight is down and appetite is fair. Patient was brought to the visit by his daughter due to difficulty with ambulation today . 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 CORONARY ATHEROSCLEROSIS OF UNSPECIFIED TYPE OF VESSEL, OUZINKIE OR GRAFT History of bladder cancer Macular [...] Current Outpatient Medications Medication Sig Dispense Refill VITAMIN B-6 100 MG PO TABS 200mg [...] mouth 1 Capsule daily . Saline Nasal Brewster 0.65 % Nasal Solution (Sussex) Administer into nostril 2 Sprays in the morning AND 2 Sprays before bedtime. 30 mL 12 Nitroglycerin 0.4 MG Sublingual Tablet Sublingual (Nitrostat) one tab under tongue as needed for chest pain maximum 3 doses 25 Tablet 5 Pravastatin Sodium 20 MG Oral Tablet (Pravachol) TAKE 1 TABLET BY MOUTH ONCE DAILY AT BEDTIME 100 Tablet 3 Aspirin 81 MG Oral Tablet Delayed Release Take 1 Tablet by mouth in the morning. Silodosin 4 MG Oral Capsule (Rapaflo) Take [...] IR) Take 1 Tablet by mouth every 8 hours as needed for Pain, Severe. 90 Tablet 0 CO Q 10 10 MG PO CAPS clotrimazole-betamethasone (LOTRISONE) 1-0.05 % cream APPLY TOPICALLY TO RIGHT LEG AREA TWICE DAILY(Patient not taking: Reported on 03/13/2024) 135 g 5 Triamcinolone Acetonide 0.1 % External Lotion (Aristocort) Apply to affected area at groin twice daily as needed (Patient not taking: Reported on 03/13/2024) 60 mL 2 Ketoconazole 2 % External Shampoo (Nizoral) USE [...] years COLONOSCOPY, DIAGNOSTIC (RECTUM) 10/23/2015 benign polyps, diverticulosis/[facility] CYSTO/URETERO W/LITHOTRIPSY Right 02/28/2019 CYSTOURETHROSCOPY URETEROSCOPY WITH LITHOTRIPSY AND STENT INSERTION performed by Alen Aguilar MD at OR [facility] CYSTOSCOPY 03-05-2010 CYSTOSCOPY/INSERTION OF STENT Right 12/19/2018 CYSTOURETHROSCOPY WITH INSERTION URETERAL STENT performed by Alen Aguilar MD at OR [facility] CYSTOSCOPY/TREAT LGE BLADDER TUMOR N/A 10/07/2018 CYSTOURETHROSCOPY WITH FULGURATION LARGE BLADDER TUMOR performed by Alen Aguilar MD at OR [facility] CYSTOSCOPY/TREAT LGE BLADDER TUMOR N/A 05/22/2021 CYSTOURETHROSCOPY WITH FULGURATION LARGE BLADDER TUMOR performed by Alysa Valente MD at OR [facility] CYSTOSCOPY/TREAT SML BLADDER TUMOR N/A 03/13/2024 CYSTOURETHROSCOPY WITH FULGURATION SMALL BLADDER TUMOR performed by Jose Lisa MD atOR [facility] CYSTOURETERO W/BIOPSY Right 12/19/2018 CYSTOURETHROSCOPY URETEROSCOPY WITH BIOPSY AND OR FULGURATION LESION performed by Alen Aguilar MD at OR [facility] CYSTOURETERO W/BIOPSY N/A 02/28/2019 CYSTOURETHROSCOPY URETEROSCOPY WITH BIOPSY AND OR FULGURATION LESION performed by Alen Aguilar MD at OR [facility] CYSTOURETERO W/BIOPSY Bilateral 09/21/2019 CYSTOURETHROSCOPY URETEROSCOPY WITH BIOPSY AND OR FULGURATION LESION performed by Alysa Valente MD at OR [facility] CYSTOURETHROSCOPY W/BIOPSY N/A 05/22/2021 CYSTOURETHROSCOPY WITH BIOPSY performed by Alysa Valente MD at OR [facility] ENDOVASC ABDO REPR W/BI DEVICE N/A 03/29/2017 ENDOVASCULAR REPAIR ABDOMINAL AORTIC ANEURYSM BIF PROS 1 LIMB performed by Lisa Emerson MD at OR [facility] FLUORO PYELOGRAM RETROGRADE Left 02/28/2019 UROGRAHY, RETROGRADE, WITH OR WITHOUT KUB performed by Alen Aguilar MD at OR [facility] FLUORO PYELOGRAM RETROGRADE Bilateral 09/21/2019 UROGRAHY, RETROGRADE, WITH OR WITHOUT KUB performed by Alysa Valente MD at OR [facility] INFORMATION open heart surgery [facility] INFORMATION 07/1999 bladder [facility] danella INFORMATION 03/29/2017 model# LCG13-45/116-40 AFX Endovascular AAA Stent Graft Extension INFORMATION 03/29/2017 model# A25-25/I13-J04M AFX Endovascular AAA Stent Limb Extension INJECT DX/THER SUBSTANCE INTERLAMINAR LUMBAR/SACRAL W IMAGE GUIDE 05/25/2019 INJECTION SPINE LUMBAR OR SACRAL performed by Racine Maribel Gil, DO at OR [facility] INJECT DX/THER SUBSTANCE INTERLAMINAR LUMBAR/SACRAL W IMAGE GUIDE 06/22/2019 INJECTION SPINE LUMBAR OR SACRAL performed by Michel Gil, DO at OR [facility] INJECT DX/THER SUBSTANCE INTERLAMINAR LUMBAR/SACRAL W IMAGE GUIDE 02/01/2020 INJECTION SPINE LUMBAR OR SACRAL performed by Michel Gil, DO at OR [facility] IOF CT GUIDED NEEDLE BIOPSY 03/06/2011 CT GUIDED NEEDLE ASPIRATION BIOPSY performed by DUDLEY WARNER at RADIOLOGY [facility] IR ENDOVASCULAR REPAIR ILIAC 04/17/04 right common [...] change and unexpected weight change. Negative for chills and fever. HENT: Negative for congestion, sore throat and [...] decreased concentration and sleep disturbance. OBJECTIVE: BP 122/64 | Pulse 74 | Temp 37.1 C (98.7 F) | Resp 16 | Ht 1.676 m (5' 6") | Wt 60.5 kg (133 lb6.4 oz) | SpO2 97% | BMI 21.53 kg/m | BSA 1.68 m Physical Exam Vitals and nursing note [...] soft. Tenderness: There is no abdominal tenderness. Musculoskeletal: Thoracic back: Spasms and tenderness present. Scoliosis present. Lumbar back: Spasms and tenderness present. Decreased range of motion. Scoliosis present. Right lower leg: No edema. Left lower leg: No edema. Comments: Left posterior lower rib pain Neurological: Mental Status: He is alert and oriented to person, place, and time. Mental status is at baseline. Gait: Gait abnormal. Psychiatric: Mood and Affect: Mood normal. Behavior: Behavior normal. Thought Content: Thought content normal. PLAN AND ASSESSMENT: Chronic midline thoracic back pain (Primary) - XR T SPINE AP AND LATERAL - CT T SPINE WO CONTRAST; Future; Expected date: 03/20/2024 - Increase oxyCODONE HCl 5 MG Oral Tablet (Oxy IR); Take 1 Tablet by mouth every 6 hours as needed for Pain, Severe. Chronic left-sided low back pain without sciatica - XR L SPINE COMPLETE - CT L SPINE WO CONTRAST; Future; Expected date: 03/20/2024 - oxyCODONE HCl 5 MG Oral Tablet (Oxy IR); Take 1 Tablet by mouth every 6 hours as needed for Pain,Severe. Spinal stenosis of lumbar region at multiple levels - oxyCODONE HCl 5 MG Oral Tablet (Oxy IR); Take 1 Tablet by mouth every 6 hours as needed for Pain,Severe. Results for orders placed or performed in [...] purposes. Confirmatory testing is available upon request. History of bladder cancer Continue to follow with Urology as scheduled New malignant lesion resected last week Atherosclerosis of re[place]-sparks coronary artery of re[place]-sparks heart without angina pectoris Continue Atenolol, and ASA Scoliosis of thoracolumbar region due to degenerative disease of spine in adult - CT L SPINE WO CONTRAST; Future; Expected date: 03/20/2024 - CT T SPINE WO CONTRAST; Future; Expected date: 03/20/2024 Thrombocytopenia (HCC) Stable ITP HTN, GOAL BELOW 140/90 Continue Amlodipine, and Atenolol DYSLIPIDEMIA, GOAL LDL BELOW 100 Continue Pravastatin History of lung cancer Treated with Radiation Degeneration of intervertebral disc of lumbar region with discogenic back pain H/O endovascular stent graft for abdominal aortic aneurysm Other orders - COVID-19, MRNA-LNP, PF, 24-25, 30MCG/0.3ML, IM, 12YRS AND ABOVE ([employer]) Follow Up: Return in about 1 week (around 03/27/2024), or if symptoms worsen or fail to improve. Javon Scales DO 8:35 AM 03/21/2024 documented in this encounter Nursing Notes * Kelli Mota LPN - 03/20/2024 3:39 PM EDT Patient states pain at site of lump worsening. documented in this encounter Miscellaneous Notes * Result Encounter Note - Janice Robles LPN - 03/21/2024 2:26 PM EDT Spoke to pts EC daughter Lore - see telephone encounter. documented in this encounter Plan of Treatment Upcoming Encounters Date Type Department Care Team (Late st Contact Info) Description 03/29/2024 2:20 PM EDT Office Visit [address] [place] [address] Javon Scales DO [address] [place] [address] 03/30/2024 11:00 AM EDT Office Visit Urology, [place] [address] [place] [address] Jose Lisa MD [address] [place] [address] 04/06/2024 11:00 AM EDT [facility], [facility] [address] Makayla Moody CRNP [address] [facility] [address] 04/21/2024 2:20 PM EST [facility] [address] [facility] [address] [place] [address] Javon Scales DO [address] [place] [address] 05/03/2024 1:45 PM EST Office Visit Urology, [place] [address] [place] [address] Baudilio Rosas MD [address] [place] [address] 07/28/2024 1:00 PM EST Procedure Only Urology, [place] [address] [place] [address] Jose Lisa MD [address] [place] [address] 08/08/2024 2:45 PM EST Office Visit Hematology/Oncology [facility] [address] [place] [address] Martir Lazar MD [address] [place] [address] 09/05/2024 4:00 PM EDT Office Visit Cardiology, [facility] [address] [facility] [place] [address] Sridhar Fay MD [address] [facility] [address] 09/26/2024 11:00 AM EDT Nurse Only Family Practice [address] [place] [address] [address] [place] [phone] Kelli Steele RN [address] [place] [phone] Health Maintenance Due Date Last Done Comments CKD PHOS USE SMARTSET 23707 07/27/2024 02, 02/25/2022, 01/29/2021 Adult Wellness Visit 09/20/2024 09/21/2023, 01/30/2022, 01/29/2021 Depression Screening 09/20/2024 09/21/2023 Albumin/Creatinine Ratio 03/02/2025 024, 04/26/2023, 07/13/2022, Additional history exists CKD HGB USE SMARTSET 87994 03/11/202503/11, 03/11/2024, 03/10/2024, Additional history exists DTap/Tdap [...] this encounter Medical Devices Implanted Type Area Medical Representative Device Identifier Shelf Expiration Date Model / Serial / Lot Bifurcated Endograft Implanted:Qty: 1 on 03/29/2017 by Lisa Emerson MD at OR [facility] N/A: Aorta ENDOLOGIX 01/13/2018 [id number]/[id number] [id number] / [id number] / Proximal Endograft Implanted:Qty: 1 on 03/29/2017 by Lisa Emerson MD at OR [facility] N/A: Aorta ENDOLOGIX 01/16/2020 A25-25/[id number] / [id number] / documented as of this encounter Procedures Procedure Name Priority Date/Time Associated Diagnosis Comments XR L SPINE COMPLETE STAT 03/20/2024 4 :40 PM EDT Chronic left-sided low back pain without sciatica XR T SPINE AP AND LATERAL STAT 03/20/2024 4:39 PM EDT Chronic midline thoracic back pain documented in this encounter Results * CT T SPINE WO CONTRAST (03/21/2024 2:15 PM EDT) Anatomical Region Laterality Modality Tspine, Spine, Vertebra Computed Tomography 03/22/2024 11:2 6 AM EDT Impressions 03/22/2024 11:23 AM EDT IMPRESSION: THORACIC SPINE CT: 1. Transitional thoracic spine anatomy. 11 rib-bearing thoracic type vertebral bodies, stable compared with 01/[address] C7 left cervical rib and right elongated transverse process. Most superior fbx-web-adzvfuo vertebral body designated as T12 for this dictation. 2. Convex left superior thoracic scoliosis, measuring 34 degrees by Thompson method between superior T1 and inferior T4 endplates. Convex right midthoracic scoliosis, [...] thoracic spine and lumbar spine anatomy. 6 art-qkc-yuvovog lumbar type vertebral bodies, stable compared with 02/2021 abdomen/pelvis CT. However 11 rib-bearing thoracic type vertebral bodies on accompanying thoracic spine CT. Most superior nwv-ayu-dmxpzhm vertebral body designated as T12 for this [...] This case was submitted to the Radiology Sql Consultant (HEAD [employer]OWER): Unexpected or Indeterminate Result. Narrative 03/22/2024 11:23 AM EDT EXAM: THORACIC SPINE CT WITHOUT CONTRAST. LUMBAR SPINE CT WITHOUT CONTRAST. 03/21/2024 2:15 pm HISTORY: Dx: Chronic midline thoracic back pain M54.6, G89.29 (ICD-10-CM); Scoliosis of thoracolumbar region due to degenerative disease of spine in adult M41.55 (ICD-10-CM); Chronic left-sided low back pain without sciatica M54.50, G89.29 (ICD-10-CM). TECHNIQUE: THORACIC SPINE CT: Thoracic spine CT images without intravenous iodinated contrast administration. MPR reconstructions. LUMBAR SPINE CT: Lumbar spine CT images without intravenous iodinated contrast administration. MPR reconstructions. COMPARISON: THORACIC SPINE X-RAY dated 03/20/2024; LUMBAR SPINE X-RAY dated 03/20/2024; CHEST CT WITHOUT CONTRAST dated 01/14/2024; ABDOMEN/PELVIS CT WITH CONTRAST dated 02/14/2021; ABDOMEN/PELVIS CT WITH CONTRAST dated 04/03/2019. FINDINGS: THORACIC SPINE CT: Transitional thoracic spine anatomy. 11 rib-bearing thoracic type vertebral bodies, stable compared with 01/[address] C7 left cervical rib and right elongated transverse process. Most superior zer-qnm-fsginzc vertebral body designated as T12 for this dictation. Convex left superior thoracic scoliosis, measuring 34 degrees by Thompson method between superior T1 and inferior T4 endplates. Convex right midthoracic scoliosis, measuring 19 degrees by Thompson method between superior T5 and inferior T9 endplates. Convex left thoracolumbar scoliosis, measuring 32 degrees by Thompson method between superior T10 and inferior L3 endplates. Grade I anterolisthesis of T8 on T9. Grade I retrolisthesis of T11 on T12. Otherwise anatomic thoracic spine alignment, without fracture. Degenerative disc height loss at all thoracic levels. At worst severe facet arthropathy. Right lower lobe part solid subcentimeter pulmonary nodule, new compared with 01/[address] Left lung pulmonary nodules, better characterized on January [address] Incompletely included right upper lobe post-treatment changes. Centrilobular emphysema. Coronary artery and thoracic aorta atherosclerotic calcification. Hiatal hernia. Otherwise normal included thoracic/superior abdominal contents. Mild paraspinal muscle atrophy. LUMBAR SPINE CT: Transitional thoracic spine and lumbar spine anatomy. 6 xym-ntj-ayjfvrz lumbar type vertebral bodies, stable compared with 02/2021 abdomen/pelvis CT. However 11 rib-bearing thoracic type vertebral bodies on accompanying thoracic spine CT. Most superior lck-nnv-finelon vertebral body designated as T12 for this dictation. Lumbosacral transitional vertebra (LSTV) designated as L5 for this dictation. L5 sacralization, with fully formed L5-S1 disc and bilateral L5 transverse process widening (Castellvi Ib). Convex left thoracolumbar scoliosis, measuring 32 degrees by Thompson method between superior T10 and inferior L3 endplates. Convex right lumbar scoliosis, measuring 11 degrees by Thompson method between superior L4 and inferior L5 endplates. Grade I retrolisthesis of L2 on L3 and L3 on L4. L1/L2 osseous fusion across right disc space, new compared with 02/2021. 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 Otherwise anatomic lumbar spine alignment, without fracture. Degenerative disc height loss at all lumbar levels. At worst severe facet arthropathy. No sacral fracture deformity. Moderate bilateral SI joint degenerative changes. Heterogeneous liver contains multiple lesions, characterized as cysts and hemangiomas on 03/2019 abdomen/pelvis CT. Abdominal aorta endovascular stent graft. Right renal hypodense lesions, characterized as simple renal cysts on 03/2019 abdomen/pelvis CT. Otherwise, normal included abdominal/pelvic contents. Moderate posterior/mild anterior paraspinal muscle atrophy. Procedure Note Jovi Heath MD - 03/22/2024 EXAM: THORACIC SPINE CT WITHOUT CONTRAST. LUMBAR SPINE CT WITHOUT CONTRAST.03/21/2024 2:15 pm HISTORY: Dx: Chronic midline thoracic back pain M54.6, G89.29 (ICD-10-CM);Scoliosis of thoracolumbar region due to degenerative disease of spine inadult M41.55 (ICD-10-CM); Chronic left-sided low back pain withoutsciatica M54.50, G89.29 (ICD-10-CM). TECHNIQUE: THORACIC SPINE CT: Thoracic spine CT images without intravenous iodinatedcontrast administration. MPR reconstructions. LUMBAR SPINE CT: Lumbar spine CT images without intravenous iodinatedcontrast administration. MPR reconstructions. COMPARISON: THORACIC SPINE X-RAY dated 03/20/2024; LUMBAR SPINE X-RAY dated1; CHEST CT WITHOUT CONTRAST dated 01/14/2024; ABDOMEN/PELVIS CTWITH CONTRAST dated 02/14/2021; ABDOMEN/PELVIS CT WITH CONTRAST date04/03/2019. FINDINGS: THORACIC SPINE CT: Transitional thoracic spine anatomy. 11 rib-bearing thoracic typevertebral bodies, stable compared with 01/[address] C7 left cervicalrib and right elongated transverse process. Most superior ewa-hpi-tpwfzlvzqowoxfhe body designated as T12 for this dictation. Convex left superior thoracic scoliosis, measuring 34 degrees by Cobbmethod between superior T1 and inferior T4 endplates. Convex rightmidthoracic scoliosis, measuring 19 degrees by Thompson method betweensuperior T5 and inferior T9 endplates. Convex left thoracolumbarscoliosis, measuring 32 degrees by Thompson method between superior T10 andinferior L3 endplates. Grade I anterolisthesis of T8 on T9. Grade Iretrolisthesis of T11 on T12. Otherwise anatomic thoracic spine alignment,without fracture. Degenerative disc height loss at all thoracic levels.At worst severe facet arthropathy. Right lower lobe part solid subcentimeter pulmonary nodule, new comparedwith 01/[address] Left lung pulmonary nodules, better characterizedon January [address] Incompletely included right upper lobepost-treatment changes. Centrilobular emphysema. Coronary artery andthoracic aorta atherosclerotic calcification. Hiatal hernia. Otherwisenormal included thoracic/superior abdominal contents. Mild paraspinalmuscle atrophy. LUMBAR SPINE CT: Transitional thoracic spine and lumbar spine anatomy. 6 ynw-ylm-wejjqzgvvrnws type vertebral bodies, stable compared with 02/2021 abdomen/pelvisCT. However 11 rib-bearing thoracic type vertebral bodies on accompanyingthoracic spine CT. Most superior hff-ofx-sxodedv vertebral bodydesignated as T12 for this dictation. Lumbosacral transitional vertebra(LSTV) designated as L5 for this dictation. L5 sacralization, with fullyformed L5-S1 disc and bilateral L5 transverse process widening (CastellviIb). Convex left thoracolumbar scoliosis, measuring 32 degrees by Thompson methodbetween superior T10 and inferior L3 endplates. Convex right lumbarscoliosis, measuring 11 degrees by Thompson method between superior L4 andinferior L5 endplates. 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 Otherwise anatomic lumbar spinealignment, without fracture. Degenerative disc height loss at all lumbarlevels. At worst severe facet arthropathy. No sacral fracture deformity.Moderate bilateral SI joint degenerative changes. Heterogeneous liver contains multiple lesions, characterized as cysts andhemangiomas on 03/2019 abdomen/pelvis CT. Abdominal aorta endovascularstent graft. Right renal hypodense lesions, characterized as simple renalcysts on 03/2019 abdomen/pelvis CT. Otherwise, normal includedabdominal/pelvic contents. Moderate posterior/mild anterior paraspinalmuscle atrophy. IMPRESSION IMPRESSION: THORACIC SPINE CT: 1. Transitional thoracic spine anatomy. 11 rib-bearing thoracic typevertebral bodies, stable compared with 01/[address] C7 left cervicalrib and right elongated transverse process. Most superior spb-kdr-pibabslbefywrfsx body designated as T12 for this dictation. 2. Convex left superior thoracic scoliosis, measuring 34 degrees by Cobbmethod between superior T1 and inferior T4 endplates. Convex rightmidthoracic scoliosis, measuring 19 degrees by Thompson method betweensuperior T5 and inferior T9 endplates. Convex left thoracolumbarscoliosis, measuring 32 degrees by Thompson method between superior T10 andinferior L3 endplates. 3. Grade I anterolisthesis of T8 on T9. Grade I retrolisthesis of T11 onT12. 4. No thoracic spine fracture. 5. Centrilobular emphysema. Right lower lobe part solid subcentimeterpulmonary nodule, new compared with 01/[address] withoutcontrast is recommended. 6. Degenerative disc height loss at all thoracic levels. At worst severefacet arthropathy. 7. Left lung pulmonary nodules, better characterized on January 2024 [address] Incompletely included right upper lobe post-treatment changes. LUMBAR SPINE CT: 1. Transitional thoracic spine and lumbar spine anatomy. 6 avs-gnx-nokhuxnrahlei type vertebral bodies, stable compared with 02/2021 abdomen/pelvisCT. However 11 rib-bearing thoracic type vertebral bodies on accompanyingthoracic spine CT. Most superior inh-osa-naymwmy vertebral body designatedas T12 for this dictation. Lumbosacral transitional vertebra (LSTV)designated as L5 for this dictation. L5 sacralization, with fully formedL5-S1 disc and bilateral L5 transverse process widening (Castellvi Ib).ATTENTION TO SPINE NUMBERING IS MANDATORY PRIOR TO PLANNED SPINALSURGICAL/INTERVENTIONAL PROCEDURE. 2. Convex left thoracolumbar scoliosis, measuring 32 degrees by Cobbmethod between superior T10 and inferior L3 endplates. Convex right lumbarscoliosis, measuring 11 degrees by Thompson method between superior L4 andinferior L5 endplates. 3. Grade I retrolisthesis of L2 on L3 and L3 on L4. 4. L1/L2 osseous fusion across right disc space, new compared with02/2021. 5. L2/L3, L3/L4, L4/L5, and L5/S1 spinous process close apposition, whichmay represent Baastrup's disease. 6. No lumbar spine fracture. 7. Degenerative disc height loss at all lumbar levels. At worst severefacet arthropathy. Moderate bilateral SI joint degenerative changes. 8. Abdominal aorta endovascular stent graft. This case was submitted to the Radiology Sql Consultant(HEAD GROWER): Unexpected or Indeterminate Result. Javon YODER CT * CT L SPINE WO CONTRAST (03/21/2024 2:15 PM EDT) Anatomical Region Laterality Modality Lspine, Spine, Vertebra Computed Tomography 03/22/2024 11:2 6 AM EDT Impressions 03/22/2024 11:23 AM EDT IMPRESSION: THORACIC SPINE CT: 1. Transitional thoracic spine anatomy. 11 rib-bearing thoracic type vertebral bodies, stable compared with 01/[address] C7 left cervical rib and right elongated transverse process. Most superior rdb-wbf-vtkzlsq vertebral body designated as T12 for this dictation. 2. Convex left superior thoracic scoliosis, measuring 34 degrees by Thompson method between superior T1 and inferior T4 endplates. Convex right midthoracic scoliosis, [...] thoracic spine and lumbar spine anatomy. 6 gox-ukg-wuoowzh lumbar type vertebral bodies, stable compared with 02/2021 abdomen/pelvis CT. However 11 rib-bearing thoracic type vertebral bodies on accompanying thoracic spine CT. Most superior lum-ulf-ediykcp vertebral body designated as T12 for this [...] This case was submitted to the Radiology Sql Consultant (HEAD GROWER): Unexpected or Indeterminate Result. Narrative 03/22/2024 11:23 AM EDT EXAM: THORACIC SPINE CT WITHOUT CONTRAST. LUMBAR SPINE CT WITHOUT CONTRAST. 03/21/2024 2:15 pm HISTORY: Dx: Chronic midline thoracic back pain M54.6, G89.29 (ICD-10-CM); Scoliosis of thoracolumbar region due to degenerative disease of spine in adult M41.55 (ICD-10-CM); Chronic left-sided low back pain without sciatica M54.50, G89.29 (ICD-10-CM). TECHNIQUE: THORACIC SPINE CT: Thoracic spine CT images without intravenous iodinated contrast administration. MPR reconstructions. LUMBAR SPINE CT: Lumbar spine CT images without intravenous iodinated contrast administration. MPR reconstructions. COMPARISON: THORACIC SPINE X-RAY dated 03/20/2024; LUMBAR SPINE X-RAY dated 03/20/2024; CHEST CT WITHOUT CONTRAST dated 01/14/2024; ABDOMEN/PELVIS CT WITH CONTRAST dated 02/14/2021; ABDOMEN/PELVIS CT WITH CONTRAST dated 04/03/2019. FINDINGS: THORACIC SPINE CT: Transitional thoracic spine anatomy. 11 rib-bearing thoracic type vertebral bodies, stable compared with 01/[address] C7 left cervical rib and right elongated transverse process. Most superior mam-zmn-qnvdlie vertebral body designated as T12 for this dictation. Convex left superior thoracic scoliosis, measuring 34 degrees by Thompson method between superior T1 and inferior T4 endplates. Convex right midthoracic scoliosis, measuring 19 degrees by Thompson method between superior T5 and inferior T9 endplates. Convex left thoracolumbar scoliosis, measuring 32 degrees by Thompson method between superior T10 and inferior L3 endplates. Grade I anterolisthesis of T8 on T9. Grade I retrolisthesis of T11 on T12. Otherwise anatomic thoracic spine alignment, without fracture. Degenerative disc height loss at all thoracic levels. At worst severe facet arthropathy. Right lower lobe part solid subcentimeter pulmonary nodule, new compared with 01/[address] Left lung pulmonary nodules, better characterized on January [address] Incompletely included right upper lobe post-treatment changes. Centrilobular emphysema. Coronary artery and thoracic aorta atherosclerotic calcification. Hiatal hernia. Otherwise normal included thoracic/superior abdominal contents. Mild paraspinal muscle atrophy. LUMBAR SPINE CT: Transitional thoracic spine and lumbar spine anatomy. 6 sev-ccy-umlkoro lumbar type vertebral bodies, stable compared with 02/2021 abdomen/pelvis CT. However 11 rib-bearing thoracic type vertebral bodies on accompanying thoracic spine CT. Most superior qdx-kew-akulgya vertebral body designated as T12 for this dictation. Lumbosacral transitional vertebra (LSTV) designated as L5 for this dictation. L5 sacralization, with fully formed L5-S1 disc and bilateral L5 transverse process widening (Castellvi Ib). Convex left thoracolumbar scoliosis, measuring 32 degrees by Thompson method between superior T10 and inferior L3 endplates. Convex right lumbar scoliosis, measuring 11 degrees by Thompson method between superior L4 and inferior L5 endplates. Grade I retrolisthesis of L2 on L3 and L3 on L4. L1/L2 osseous fusion across right disc space, new compared with 02/2021. 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 Otherwise anatomic lumbar spine alignment, without fracture. Degenerative disc height loss at all lumbar levels. At worst severe facet arthropathy. No sacral fracture deformity. Moderate bilateral SI joint degenerative changes. Heterogeneous liver contains multiple lesions, characterized as cysts and hemangiomas on 03/2019 abdomen/pelvis CT. Abdominal aorta endovascular stent graft. Right renal hypodense lesions, characterized as simple renal cysts on 03/2019 abdomen/pelvis CT. Otherwise, normal included abdominal/pelvic contents. Moderate posterior/mild anterior paraspinal muscle atrophy. Procedure Note Jovi Heath MD - 03/22/2024 EXAM: THORACIC SPINE CT WITHOUT CONTRAST. LUMBAR SPINE CT WITHOUT CONTRAST.03/21/2024 2:15 pm HISTORY: Dx: Chronic midline thoracic back pain M54.6, G89.29 (ICD-10-CM);Scoliosis of thoracolumbar region due to degenerative disease of spine inadult M41.55 (ICD-10-CM); Chronic left-sided low back pain withoutsciatica M54.50, G89.29 (ICD-10-CM). TECHNIQUE: THORACIC SPINE CT: Thoracic spine CT images without intravenous iodinatedcontrast administration. MPR reconstructions. LUMBAR SPINE CT: Lumbar spine CT images without intravenous iodinatedcontrast administration. MPR reconstructions. COMPARISON: THORACIC SPINE X-RAY dated 03/20/2024; LUMBAR SPINE X-RAY dated1; CHEST CT WITHOUT CONTRAST dated 01/14/2024; ABDOMEN/PELVIS CTWITH CONTRAST dated 02/14/2021; ABDOMEN/PELVIS CT WITH CONTRAST dated1. FINDINGS: THORACIC SPINE CT: Transitional thoracic spine anatomy. 11 rib-bearing thoracic typevertebral bodies, stable compared with 01/[address] C7 left cervicalrib and right elongated transverse process. Most superior mol-nte-gqxwgvugzjdoyjei body designated as T12 for this dictation. Convex left superior thoracic scoliosis, measuring 34 degrees by Cobbmethod between superior T1 and inferior T4 endplates. Convex rightmidthoracic scoliosis, measuring 19 degrees by Thompson method betweensuperior T5 and inferior T9 endplates. Convex left thoracolumbarscoliosis, measuring 32 degrees by Thompson method between superior T10 andinferior L3 endplates. Grade I anterolisthesis of T8 on T9. Grade Iretrolisthesis of T11 on T12. Otherwise anatomic thoracic spine alignment,without fracture. Degenerative disc height loss at all thoracic levels.At worst severe facet arthropathy. Right lower lobe part solid subcentimeter pulmonary nodule, new comparedwith 01/[address] Left lung pulmonary nodules, better characterizedon January [address] Incompletely included right upper lobepost-treatment changes. Centrilobular emphysema. Coronary artery andthoracic aorta atherosclerotic calcification. Hiatal hernia. Otherwisenormal included thoracic/superior abdominal contents. Mild paraspinalmuscle atrophy. LUMBAR SPINE CT: Transitional thoracic spine and lumbar spine anatomy. 6 qce-hmk-bzrlbwxrsxtme type vertebral bodies, stable compared with 02/2021 abdomen/pelvisCT. However 11 rib-bearing thoracic type vertebral bodies on accompanyingthoracic spine CT. Most superior bxy-lcu-qucjcmc vertebral bodydesignated as T12 for this dictation. Lumbosacral transitional vertebra(LSTV) designated as L5 for this dictation. L5 sacralization, with fullyformed L5-S1 disc and bilateral L5 transverse process widening (CastellviIb). Convex left thoracolumbar scoliosis, measuring 32 degrees by Thompson methodbetween superior T10 and inferior L3 endplates. Convex right lumbarscoliosis, measuring 11 degrees by Thompson method between superior L4 andinferior L5 endplates. 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 Otherwise anatomic lumbar spinealignment, without fracture. Degenerative disc height loss at all lumbarlevels. At worst severe facet arthropathy. No sacral fracture deformity.Moderate bilateral SI joint degenerative changes. Heterogeneous liver contains multiple lesions, characterized as cysts andhemangiomas on 03/2019 abdomen/pelvis CT. Abdominal aorta endovascularstent graft. Right renal hypodense lesions, characterized as simple renalcysts on 03/2019 abdomen/pelvis CT. Otherwise, normal includedabdominal/pelvic contents. Moderate posterior/mild anterior paraspinalmuscle atrophy. IMPRESSION IMPRESSION: THORACIC SPINE CT: 1. Transitional thoracic spine anatomy. 11 rib-bearing thoracic typevertebral bodies, stable compared with 01/[address] C7 left cervicalrib and right elongated transverse process. Most superior llx-mbi-zvrqmsdzktfhoccg body designated as T12 for this dictation. 2. Convex left superior thoracic scoliosis, measuring 34 degrees by Cobbmethod between superior T1 and inferior T4 endplates. Convex rightmidthoracic scoliosis, measuring 19 degrees by Thompson method betweensuperior T5 and inferior T9 endplates. Convex left thoracolumbarscoliosis, measuring 32 degrees by Thompson method between superior T10 andinferior L3 endplates. 3. Grade I anterolisthesis of T8 on T9. Grade I retrolisthesis of T11 onT12. 4. No thoracic spine fracture. 5. Centrilobular emphysema. Right lower lobe part solid subcentimeterpulmonary nodule, new compared with 01/[address] withoutcontrast is recommended. 6. Degenerative disc height loss at all thoracic levels. At worst severefacet arthropathy. 7. Left lung pulmonary nodules, better characterized on January [address] Incompletely included right upper lobe post-treatment changes. LUMBAR SPINE CT: 1. Transitional thoracic spine and lumbar spine anatomy. 6 jln-kbh-rqnbephqsylln type vertebral bodies, stable compared with 02/2021 abdomen/pelvisCT. However 11 rib-bearing thoracic type vertebral bodies on accompanyingthoracic spine CT. Most superior fst-drc-nkpuzmx vertebral body designatedas T12 for this dictation. Lumbosacral transitional vertebra (LSTV)designated as L5 for this dictation. L5 sacralization, with fully formedL5-S1 disc and bilateral L5 transverse process widening (Castellvi Ib).ATTENTION TO SPINE NUMBERING IS MANDATORY PRIOR TO PLANNED SPINALSURGICAL/INTERVENTIONAL PROCEDURE. 2. Convex left thoracolumbar scoliosis, measuring 32 degrees by Cobbmethod between superior T10 and inferior L3 endplates. Convex right lumbarscoliosis, measuring 11 degrees by Thompson method between superior L4 andinferior L5 endplates. 3. Grade I retrolisthesis of L2 on L3 and L3 on L4. 4. L1/L2 osseous fusion across right disc space, new compared with02/2021. 5. L2/L3, L3/L4, L4/L5, and L5/S1 spinous process close apposition, whichmay represent Baastrup's disease. 6. No lumbar spine fracture. 7. Degenerative disc height loss at all lumbar levels. At worst severefacet arthropathy. Moderate bilateral SI joint degenerative changes. 8. Abdominal aorta endovascular stent graft. This case was submitted to the Radiology Sql Consultant(HEAD GROWER): Unexpected or Indeterminate Result. Javon YODER CT * XR L SPINE COMPLETE (03/20/2024 4:40 PM EDT) Anatomical Region Laterality Modality Vertebra, Lspine Digital Radiogr aphy 03/20/2024 5:01 PM EDT Narrative 03/20/2024 4:58 PM EDT EXAM: XR T SPINE AP AND LATERAL; XR L SPINE COMPLETE HISTORY: pain, scoliosis; back pain , scoliosis COMPARISON: CT 01/14/2024. FINDINGS: Thoracic spine: Obliquity reduces sensitivity. A portion of the spine is obscured by overlapping tissue on the lateral view. Mildly exaggerated thoracic kyphosis. No vertebral compression fracture is identified. Mild multilevel intervertebral disc space narrowing. Median sternotomy wires are intact and aligned. Partially visualized postsurgical changes of median sternotomy and cardiac surgery. Vascular calcification. Lumbar spine: Obliquity reduces sensitivity. Moderate levoconvex curvature of the lumbar spine centered at L2. No vertebral compression fracture is identified. Severe intervertebral disc space narrowing at L2-L3. Osteophytes. Facet hypertrophy. Hypertrophic changes of the sacroiliac joints. Vascular stent graft. Embolization coils overlie the lower mid abdomen. Repeated lateral radiographs of the lumbar spine may represent attempted flexion-extension views, however with significant obliquity, and without definite flexion or extension. IMPRESSION: Obliquity reduces sensitivity. Mild degenerative changes of the thoracic spine. Severe lumbar discovertebral degeneration at L2-L3. Procedure Note Lazaro Jones MD - 03/20/2024 EXAM: XR T SPINE AP AND LATERAL; XR L SPINE COMPLETE HISTORY: pain, scoliosis; back pain , scoliosis COMPARISON: CT 01/14/2024. FINDINGS: Thoracic spine: Obliquity reduces sensitivity. A portion of the spine isobscured by overlapping tissue on the lateral view. Mildly exaggeratedthoracic kyphosis. No vertebral compression fracture is identified. Mildmultilevel intervertebral disc space narrowing. Median sternotomy wiresare intact and aligned. Partially visualized postsurgical changes ofmedian sternotomy and cardiac surgery. Vascular calcification. Lumbar spine: Obliquity reduces sensitivity. Moderate levoconvexcurvature of the lumbar spine centered at L2. No vertebral compressionfracture is identified. Severe intervertebral disc space narrowing atL2-L3. Osteophytes. Facet hypertrophy. Hypertrophic changes of thesacroiliac joints. Vascular stent graft. Embolization coils overlie thelower mid abdomen. Repeated lateral radiographs of the lumbar spine mayrepresent attempted flexion-extension views, however with significantobliquity, and without definite flexion or extension. IMPRESSION: Obliquity reduces sensitivity. Mild degenerative changes of the thoracicspine. Severe lumbar discovertebral degeneration at L2-L3. Javon Scales DO RADIOLOGY (RAD GENER AL) * XR T SPINE AP AND LATERAL (03/20/2024 4:39 PM EDT) Anatomical Region Laterality Modality Vertebra, Spine, Tspine Digital Radiography 03/20/2024 5:01 PM EDT Narrative 03/20/2024 4:58 PM EDT EXAM: XR T SPINE AP AND LATERAL; XR L SPINE COMPLETE HISTORY: pain, scoliosis; back pain , scoliosis COMPARISON: CT 01/14/2024. FINDINGS: Thoracic spine: Obliquity reduces sensitivity. A portion of the spine is obscured by overlapping tissue on the lateral view. Mildly exaggerated thoracic kyphosis. No vertebral compression fracture is identified. Mild multilevel intervertebral disc space narrowing. Median sternotomy wires are intact and aligned. Partially visualized postsurgical changes of median sternotomy and cardiac surgery. Vascular calcification. Lumbar spine: Obliquity reduces sensitivity. Moderate levoconvex curvature of the lumbar spine centered at L2. No vertebral compression fracture is identified. Severe intervertebral disc space narrowing at L2-L3. Osteophytes. Facet hypertrophy. Hypertrophic changes of the sacroiliac joints. Vascular stent graft. Embolization coils overlie the lower mid abdomen. Repeated lateral radiographs of the lumbar spine may represent attempted flexion-extension views, however with significant obliquity, and without definite flexion or extension. IMPRESSION: Obliquity reduces sensitivity. Mild degenerative changes of the thoracic spine. Severe lumbar discovertebral degeneration at L2-L3. Procedure Note Lazaro Jones MD - 03/20/2024 EXAM: XR T SPINE AP AND LATERAL; XR L SPINE COMPLETE HISTORY: pain, scoliosis; back pain , scoliosis COMPARISON: CT 01/14/2024. FINDINGS: Thoracic spine: Obliquity reduces sensitivity. A portion of the spine isobscured by overlapping tissue on the lateral view. Mildly exaggeratedthoracic kyphosis. No vertebral compression fracture is identified. Mildmultilevel intervertebral disc space narrowing. Median sternotomy wiresare intact and aligned. Partially visualized postsurgical changes ofmedian sternotomy and cardiac surgery. Vascular calcification. Lumbar spine: Obliquity reduces sensitivity. Moderate levoconvexcurvature of the lumbar spine centered at L2. No vertebral compressionfracture is identified. Severe intervertebral disc space narrowing atL2-L3. Osteophytes. Facet hypertrophy. Hypertrophic changes of thesacroiliac joints. Vascular stent graft. Embolization coils overlie thelower mid abdomen. Repeated lateral radiographs of the lumbar spine mayrepresent attempted flexion-extension views, however with significantobliquity, and without definite flexion or extension. IMPRESSION: Obliquity reduces sensitivity. Mild degenerative changes of the thoracicspine. Severe lumbar discovertebral degeneration at L2-L3. Javon Scales DO RADIOLOGY (RAD GENER AL) documented in this encounter Visit Diagnoses Diagnosis Chronic midline thoracic back pain- Primary Chronic left-sided low back pain without sciatica Spinal stenosis of lumbar region at multiple levels Spinal stenosis, lumbar region, without neurogenic claudication History of bladder cancer Personal history of malignant neoplasm of bladder Atherosclerosis of [place] coronary artery of [place] heart without angina pectoris Scoliosis of thoracolumbar region due to degenerative disease of spine in adult Thrombocytopenia (HCC) Thrombocytopenia, unspecified HTN, GOAL BELOW 140/90 Unspecified essential hypertension DYSLIPIDEMIA, GOAL LDL BELOW 100 Other and unspecified hyperlipidemia History of lung cancer Personal history of malignant neoplasm of bronchus and lung Degeneration of intervertebral disc of lumbar region with discogenic back pain H/O endovascular stent graft for abdominal aortic aneurysm Blood vessel replaced by other means Chronic left-sided low back pain without sciatica Scoliosis of thoracolumbar region due to degenerative disease of spine in adult Chronic midline thoracic back pain Scoliosis of thoracolumbar region due to degenerative disease of spine in adult documented in this encounter Advance Directives * Full Code (Latest Code Status on File) Date Activated Date Inactivated Comments 03/29/2017 2:46 PM 03/31/2017 3:33 PM This order reflects the patients wishes and were consensually agreed upon. Care Teams [employer] Car [employer] Relationship Specialty Start Date End Date Javon Scales DO [address] [place] [address] PCP - General Internal Medicine 11/19/23 documented as of this encounter
--- OUTSIDE RECORDS SUMMARY | 2024-05-15 18:57 | External Medical Summary | Summary of Care ---
Author Name Unknown Organization [facility] Address [address] [place] [address] Phone [phone] Care Team Providers Care Roasterman Name Role Phone MitchJavon elizabeth Apolonia ARMENTA Primary Care Provider [phone] Reason for Visit * Reason Comments Nurse Documentation Encounter Details Date Type Department Care Team (Late st Contact Info) Description 03/22/2024 11:45 AM EDT Nurse Only Family Practice 65 [facility], [place] [address] [place] [address] Kelli Steele, ANIA [address] [place] [address] Nurse Documentation Allergies Active Allergy Reactions Criticality Noted Date [...] 1 Capsule daily . Active Saline Nasal [place] 0.65 % Nasal Solution ([place])Indications: Epistaxis Administer into nostril 2 Sprays in the morning AND 2 Sprays before bedtime. 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 History of bladder cancer documented [...] 04/10 [facility] 08/09:1 month s/p [...] mRNA, LNP-s, No Pre serve, 2-Dose Series (BigML) 04/24/2021,09/06/2020,08/09/2020 COVID-19, MRNA-LNP, 24-25, P R, 30MCG/0.3ML, IM, 12YRS AND ABOVE (BigML-Comirnaty) 03/20/2024 Covid-19, Mrna, Lnp-s, Pf, B ivalent, 30 Mcg, IM, 12 yrs and above (BigML) 05/19/2022 H1N1 2009 Influenza, IM 05/28/2009 Influenza, [...] as of this encounter Progress Notes * Kelli Steele RN - 03/22/2024 1:27 PM EDT RN Lead: Kelli Steele RN Date: 03/22/24 Patient seen for ASC: - Chronic midline thoracic back pain - Chronic left-sided low back pain without sciatica - HTN, goal below 140/90 - Chronic bilateral low back pain with bilateral sciatica Connected with patient via phone. Verified patient name/. Assessment: Pt. seen: 03/21/24 Treatment plan: Chronic midline thoracic back pain (Primary) - [...] 6 hours as needed for Pain, Severe. Results for orders placed or performed in [...] purposes. Confirmatory testing is available upon request. HTN, GOAL BELOW 140/90 Continue Amlodipine, and Atenolol Status update: pt states he was aware of the increase in frequency of taking his oxcodone 5 mg to q6 hr instead of q 8 hrs. He said it was too soon to picket [employer] a new rx so he we finish his medicationat home first. Pt is scheduled for f/u with Dr Scales on 03/29/24-pt states that his has an appt close to that time. Told him I would have the front clerk reach out to him to reschedule his appt.To call sooner with any problems or concerns. Medication Reconciliation: Medication Reconciliation completed: Yes Careteam: Retaining Room Cutter: No Please let patient know you will be sharing with the CM and they may contact patient for future follow up. If patient is case managed, please route note to CM. If patient requires further follow-up for this ASC episode, please reach out directly to the case supervisor via Teams or [employer]. Plan for Future Contacts: Plan to follow up Keep scheduled appointment Advancement/Closure Plan: Patient provided contact information and encouraged to call CM or clinic directly with any changes in condition. documented in this encounter Plan of Treatment Upcoming Encounters Date Type Department Care Team (Late st Contact Info) Description 03/29/2024 2:20 PM EDT Office Visit Family Practice [address], [place] [address] [place] [address] Javon Scales, [address] [place] [address] 03/30/2024 11:00 AM EDT Office Visit Urology, [place] [address] [place] [address] Jose Lisa MD [address] [place] [address] 04/06/2024 11:00 AM EDT Office Visit Gastroenterology, [facility] [address] [place] [address] Makayla Moody CRNP [address] [place] [address] 04/21/2024 2:20 PM EST Office Visit Family Practice [address] [place] [address] [address] [place] [address] Javon Scales DO [address] [place] [address] 05/03/2024 1:45 PM EST Office Visit Urology, [place] [address] [place] [address] Baudilio Rosas MD [address] [place] [address] 07/28/2024 1:00 PM EST Procedure Only Urology, [place] [address] [place] [address] Jose Lisa MD [address] [place] [address] 08/08/2024 2:45 PM EST Office Visit Hematology/Oncology [facility] 200 [facility] [place] [phone] Martir Lazar MD 200 [place] [address] 09/05/2024 4:00 PM EDT Office Visit Cardiology, [facility] [address] [place] [address] Sridhar Fay MD [address] [place] [address] 09/26/2024 11:00 AM EDT Nurse Only Family Practice 65 [facility], [place] 293 [facility] [place] [address] Kelli Steele, ANIA 293 [facility] [place] [address] Health Maintenance Due Date Last Done Comments CKD PHOS USE SMARTSET 74493 07/27/202407/09, 02/25/2022, 01/29/2021 Adult Wellness Visit 09/20/2024 09/21/2023, 01/30/2022, 01/29/2021 Depression Screening 09/20/2024 09/21/2023 Albumin/Creatinine Ratio 03/02/2025 024, 04/26/2023, 07/13/2022, Additional history exists CKD HGB USE SMARTSET 34346 03/11/202503/11, 03/11/2024, 03/10/2024, Additional history exists DTap/Tdap [...] this encounter Medical Devices Implanted Type Area Forming Machine Operator Device Identifier Shelf Expiration Date Model / Serial / Lot Bifurcated Endograft Implanted:Qty: 1 on 03/29/2017 by Lisa Emerson MD at OR [facility] N/A: Aorta ENDOLOGIX 01/13/2018 [id number] 6-40 / [id number] / Proximal Endograft Implanted:Qty: 1 on 03/29/2017 by Lisa Emerson MD at OR [facility] N/A: Aorta ENDOLOGIX 01/16/2020 A25-25/C75- O20V / [id number] / documented as of this encounter Advance Directives * Full Code (Latest Code Status on File) Date Activated Date Inactivated Comments 03/29/2017 2:46 PM 03/31/2017 3:33 PM This order reflects the patients wishes and were consensually agreed upon. Care Teams Roasterman Relationship Specialty Start Date End Date Javon Scales DO 293 [facility] [place] [place] [address] PCP - General Internal Medicine 11/19/23 documented as of this encounter
--- OUTSIDE RECORDS SUMMARY | 2024-05-15 18:57 | External Medical Summary | Summary of Care ---
Author Name Unknown Organization [facility] Address [address] [place] [address] Phone [phone] Care Team Providers Care Material Analyst Name Role Phone Javon Scales DO Primary Care Provider [phone] Reason for Visit * Reason Onset Date Comments Test Results 03/22/2024 Unexpected or In determinate Result Encounter Details Date Type Department Care Team (Late st Contact Info) Description 03/22/2024 Telephone Family Practice 65 [facility] [address] [place] [address] Javon Scales DO [address] [place], [place] [id number] Test Results (Unexpected or Indeterminate ... Allergies [...] 1 Capsule daily . Active Saline Nasal [place] 0.65 % Nasal Solution ([place])Indications: Epistaxis Administer into nostril 2 Sprays in the morning AND 2 Sprays before bedtime. 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 (Household - for [...] discovered an unexpected or indeterminate finding on [facility] Alli Sam . ([id number])and asks that you review the following report. Study Type: CT T SPINE WO CONTRAST Date of Study: 03/22/2024 IMPRESSION: THORACIC SPINE CT: 1. Transitional thoracic spine anatomy. 11 rib-bearing thoracic type vertebral bodies, stable compared with 01/[address] C7 left cervical rib and right elongated transverse process. Most ianarrgjboy-cze-jktlatl vertebral body designated as T12 for this [...] thoracic spine and lumbar spine anatomy. 6 zft-jpd-ylkfagp lumbar type vertebral bodies, stable compared with 02/2021 abdomen/pelvis CT. However 11 rib-bearing thoracic type vertebral bodies on accompanying thoracic spine CT. Most superior wdt-yyb-nxlkgct vertebral body designated asT12 for this dictation. [...] Thank you, FLY Magallon Client Service Rep [facility] [place] documented in this encounter Plan of Treatment Upcoming Encounters Date Type Department Care Team (Late st Contact Info) Description 03/29/2024 2:20 PM EDT Office Visit Family Practice [address], [place] 293 [facility] [place] [address] Javon Scales, 293 [place] [address] 03/30/2024 11:00 AM EDT Office Visit Urology, [place] [address] [place] [address] Jose Lisa MD [address] [place] [address] 04/06/2024 11:00 AM EDT Office Visit Gastroenterology, [facility] 132 [facility] [place] [address] Makayla Moody CRNP [address] [place] [address] 04/21/2024 2:20 PM EST Office Visit Family Practice [address] [place] [address] [address] [place] [address] Javon Scales DO [address] [place] [address] 05/03/2024 1:45 PM EST Office Visit Urology, [place] [address] [place] [address] Baudilio Rosas MD [address] [place] [address] 07/28/2024 1:00 PM EST Procedure Only Urology, [place] [address] [place] [address] Jose Lisa MD [address] [place] [address] 08/08/2024 2:45 PM EST Office Visit Hematology/Oncology [facility] [address] [place] [address] Martir Lazar MD [address] [place] [address] 09/05/2024 4:00 PM EDT Office Visit Cardiology, [facility] 132 [facility] [place] [address] Sridhar Fay MD [address] [place] [address] 09/26/2024 11:00 AM EDT Nurse Only Family Practice [address], [place] 293 [facility] [place] [address] Kelli Steele, ANIA 293 [place] [address] Health Maintenance Due Date Last Done Comments CKD PHOS USE SMARTSET 89212 07/27/202407/09, 02/25/2022, 01/29/2021 Adult Wellness Visit 09/20/2024 09/21/2023, 01/30/2022, 01/29/2021 Depression Screening 09/20/2024 09/21/2023 Albumin/Creatinine Ratio 03/02/2025 024, 04/26/2023, 07/13/2022, Additional history exists CKD HGB USE SMARTSET 81515 03/11/202503/11, 03/11/2024, 03/10/2024, Additional history exists DTap/Tdap [...] this encounter Medical Devices Implanted Type Area Director [place] Sales Device Identifier Shelf Expiration Date Model / Serial / Lot Bifurcated Endograft Implanted:Qty: 1 on 03/29/2017 by Lisa Emerson MD at [place] [facility] N/A: Aorta ENDOLOGIX 01/13/2018 [id number]/11 6-40 / [id number] / Proximal Endograft Implanted:Qty: 1 on 03/29/2017 by Lisa Emerson MD at [place] [facility] N/A: Aorta ENDOLOGIX 01/16/2020 A25-25/C75- O20V / [id number] / documented as of this encounter Advance Directives * Full Code (Latest Code Status on File) Date Activated Date Inactivated Comments 03/29/2017 2:46 PM 03/31/2017 3:33 PM This order reflects the patients wishes and were consensually agreed upon. Care Teams Material Analyst Relationship Specialty Start Date End Date Javon Scales DO [address] [place] [address] PCP - General Internal Medicine 11/19/23 documented as of this encounter
--- OUTSIDE RECORDS SUMMARY | 2024-05-15 18:57 | External Medical Summary | Summary of Care ---
Author Name Unknown Organization [facility] Address [address] [place] [address] Phone [phone] Care Team Providers Care Cost Recorder Name Role Phone Javon Scales DO Primary Care Provider Reason for Referral * Precert (Within 10 days (routine)) - Authorized Specialty Diagnoses / Procedures Referred By Contac t Referred To Contact Radiology Diagnoses Chronic midline thoracic back pain Scoliosis of thoracolumbar region due to degenerative disease of spine in adult Procedures CT T SPINE WO CONTRAST Javon Scales DO [address] [place] [address] Referral ID Status Reason Start Date Expiration Date V isits Requested Visits Authorized [id number] Authorized 03/20/2024 999 999 * Precert (Within 10 days (routine)) - Authorized Specialty Diagnoses / Procedures Referred By Contac t Referred To Contact Radiology Diagnoses Chronic left-sided low back pain without sciatica Scoliosis of thoracolumbar region due to degenerative disease of spine in adult Procedures CT L SPINE WO CONTRAST Javon Scales DO [address] [place] [address] Referral ID Status Reason Start Date Expiration Date V isits Requested Visits Authorized [id number] Authorized 03/20/2024 999 999 Reason for Visit * Reason Comments Follow Up Encounter Details Date Type Department Care Team (Latest Contact Info) Description 03/20/2024 3:40 PM EDT Office Visit Family Practice [address], [place] [address] [place] [address] Javon Scales, [address] [place] [address] Chronic midline thoracic back pain*; Chronic left-sided low back pain without sciatica; Spinal stenosis of lumbar region at multiple levels; History of bladder cancer; Atherosclerosis of [place] coronary artery of [place] heart without angina pectoris; Scoliosis of thoracolumbar [...] 1 Capsule daily . Active Saline Nasal [place] 0.65 % Nasal Solution ([place])Indicatio ns:Epistaxis Administer into nostril 2 Sprays in the morning AND 2 Sprays before bedtime. 30 mL 12 2 Active Nitroglycerin 0.4 MG Sublingual Tablet Sublingual (Nitrostat)Indic ations:Atheroscl erosis of [place] coronary artery of [place] heart [...] (Tenormin)Indica tions:HTN, goal below 140/90,Atheroscl erosis of [place] coronary artery of [place] heart [...] CORONARY ATHEROSCLEROSIS OF UNSPECIFIED TYPE OF VESSEL, [place] OR GRAFT History of bladder cancer [...] stent and embolization 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/10 [facility] 08/09:1 month s/p [...] mRNA, LNP-s, No Pre serve, 2-Dose Series ([place]) 04/24/2021,09/06/2020,08/09/2020 COVID-19, MRNA-LNP, 24-25, P R, 30MCG/0.3ML, IM, 12YRS AND ABOVE ([facility]) 03/20/2024 Covid-19, Mrna, Lnp-s, Pf, B ivalent, [...] CORONARY ATHEROSCLEROSIS OF UNSPECIFIED TYPE OF VESSEL, TONTO AP[place] OR GRAFT History of bladder cancer Macular [...] mouth 1 Capsule daily . Saline Nasal [place] 0.65 % Nasal Solution ([place]) Administer into nostril 2 Sprays in the [...] years COLONOSCOPY, DIAGNOSTIC (RECTUM) 10/23/2015 benign polyps, diverticulosis/[facility] CYSTO/URETERO W/LITHOTRIPSY Right 02/28/2019 CYSTOURETHROSCOPY URETEROSCOPY WITH LITHOTRIPSY AND STENT INSERTION performed by Alen Aguilar MD at OR [facility] CYSTOSCOPY 03-05-2010 CYSTOSCOPY/INSERTION OF STENT Right 12/19/2018 CYSTOURETHROSCOPY WITH INSERTION URETERAL STENT performed by Alen Aguilar MD at OR [facility] CYSTOSCOPY/TREAT LGE BLADDER TUMOR N/A 10/07/2018 CYSTOURETHROSCOPY WITH FULGURATION LARGE BLADDER TUMOR performed by Alen Aguilar MD at OR [facility] CYSTOSCOPY/TREAT LGE BLADDER TUMOR N/A 05/22/2021 CYSTOURETHROSCOPY WITH FULGURATION LARGE BLADDER TUMOR performed by Alysa Valente MD at OR [facility] CYSTOSCOPY/TREAT SML BLADDER TUMOR N/A 03/13/2024 CYSTOURETHROSCOPY WITH FULGURATION SMALL BLADDER TUMOR performed by Jose Lisa MD atOR [facility] CYSTOURETERO W/BIOPSY Right 12/19/2018 CYSTOURETHROSCOPY URETEROSCOPY WITH BIOPSY AND OR FULGURATION LESION performed by Alen Aguilar MD at OR [facility] CYSTOURETERO W/BIOPSY N/A 02/28/2019 CYSTOURETHROSCOPY URETEROSCOPY WITH BIOPSY AND OR FULGURATION LESION performed by Alen Aguilar MD at OR [facility] CYSTOURETERO W/BIOPSY Bilateral 09/21/2019 CYSTOURETHROSCOPY URETEROSCOPY WITH BIOPSY AND OR FULGURATION LESION performed by Alysa Valente MD at OR [facility] CYSTOURETHROSCOPY W/BIOPSY N/A 05/22/2021 CYSTOURETHROSCOPY WITH BIOPSY performed by Alysa Valente MD at OR [facility] ENDOVASC ABDO REPR W/BI DEVICE N/A 03/29/2017 ENDOVASCULAR REPAIR ABDOMINAL AORTIC ANEURYSM BIF PROS 1 LIMB performed by Lisa Emerson MD at OR [facility] FLUORO PYELOGRAM RETROGRADE Left 02/28/2019 UROGRAHY, RETROGRADE, WITH OR WITHOUT KUB performed by Alen Aguilar MD at OR [facility] FLUORO PYELOGRAM RETROGRADE Bilateral 09/21/2019 UROGRAHY, RETROGRADE, WITH OR WITHOUT KUB performed by Alysa Valente MD at OR [facility] INFORMATION open heart surgery [facility] INFORMATION 07/1999 bladder [facility] danella INFORMATION 03/29/2017 model# UID08-43/116-40 AFX Endovascular AAA Stent Graft Extension INFORMATION 03/29/2017 model# A25-25/B54-L88V AFX Endovascular AAA Stent Limb Extension INJECT DX/THER SUBSTANCE INTERLAMINAR LUMBAR/SACRAL W IMAGE GUIDE 05/25/2019 INJECTION SPINE LUMBAR OR SACRAL performed by Tipton Maribel Gil, DO at OR [facility] INJECT DX/THER SUBSTANCE INTERLAMINAR LUMBAR/SACRAL W IMAGE GUIDE 06/22/2019 INJECTION SPINE LUMBAR OR SACRAL performed by Michel Gil, DO at OR [facility] INJECT DX/THER SUBSTANCE INTERLAMINAR LUMBAR/SACRAL W IMAGE GUIDE 02/01/2020 INJECTION SPINE LUMBAR OR SACRAL performed by Michel Gil, DO at OR [facility] IOF CT GUIDED NEEDLE BIOPSY 03/06/2011 CT GUIDED NEEDLE ASPIRATION BIOPSY performed by DUDLEY WARNER at RADIOLOGY [facility] IR ENDOVASCULAR REPAIR ILIAC 04/17/04 right common [...] malignant lesion resected last week Atherosclerosis of [place] coronary artery of [place] heart without angina pectoris Continue Atenolol, and [...] PF, 24-25, 30MCG/0.3ML, IM, 12YRS AND ABOVE ([place]) Follow Up: Return in about 1 week [...] Description 03/29/2024 2:20 PM EDT Office Visit [address] [place] [address] Javon Scales DO [address] [place] [address] 03/30/2024 11:00 AM EDT Office Visit Urology, [place] [address] [place] [address] Jose Lisa MD [address] [place] [address] 04/06/2024 11:00 AM EDT Office Visit [facility], [facility] [address] Makayla Moody [facility] [address] [facility] [address] 04/21/2024 2:20 PM EST Office Visit [facility] 65 [facility] [address] [place] [address] Javon Scales DO [address] [place] [address] 05/03/2024 1:45 PM EST Office Visit Urology, [place] [address] [place] [address] Baudilio Rosas MD [address] [place] [address] 07/28/2024 1:00 PM EST Procedure Only Urology, [place] [address] [place] [address] Jose Lisa MD [address] [place] [address] 08/08/2024 2:45 PM EST Office Visit Hematology/Oncology [facility] [address] [place] [address] Martir Lazar MD [address] [place] [address] 09/05/2024 4:00 PM EDT Office Visit Cardiology, [facility] 132 [place] [address] Sridhar Fay MD 132 [facility] [place] [address] 09/26/2024 11:00 AM EDT Nurse Only Family Practice [address] [place] [address] [address] [place] [phone] Kelli Steele, [place] [address] [place] [phone] Pending Results Name Type Priority Associated Diagnoses Date /Time CT L SPINE WO CONTRAST Medical Imaging Routine Chronic left-sided low back pain without sciatica Scoliosis of thoracolumbar region due to degenerative disease of spine in adult 03/21/2024 2:[address] T SPINE WO CONTRAST Medical Imaging Routine Chronic midline thoracic back pain Scoliosis of thoracolumbar region due to degenerative disease of spine in adult 03/21/2024 2:15 PM EDT Scheduled Orders Name Type Priority Associated Diagnoses Orde r Schedule CT L SPINE WO CONTRAST Medical Imaging Routine Chronic left-sided low back pain without sciatica Scoliosis of thoracolumbar region due to degenerative disease of spine in adult Expected: 03/20/2024, Expires: 04/20/2025 CT T SPINE WO CONTRAST Medical Imaging Routine Chronic midline thoracic back pain Scoliosis of thoracolumbar region due to degenerative disease of spine in adult Expected: 03/20/2024, Expires: 04/20/2025 Health Maintenance Due Date Last Done Comments CKD PHOS USE SMARTSET 10539 07/27/2024 02, 02/25/2022, 01/29/2021 Adult Wellness Visit 09/20/2024 09/21/2023, 01/30/2022, 01/29/2021 Depression Screening 09/20/2024 09/21/2023 Albumin/Creatinine Ratio 03/02/2025 024, 04/26/2023, 07/13/2022, Additional history exists CKD HGB USE SMARTSET 71361 03/11/202503/11, 03/11/2024, 03/10/2024, Additional history exists DTap/Tdap [...] this encounter Medical Devices Implanted Type Area Human Services Instructor Device Identifier Shelf Expiration Date Model / Serial / Lot Bifurcated Endograft Implanted:Qty: 1 on 03/29/2017 by Lisa Emerson MD at OR [facility] N/A: Aorta ENDOLOGIX 01/13/2018 [id number] 6-40 / [id number] / Proximal Endograft Implanted:Qty: 1 on 03/29/2017 by Lisa Emerson MD at OR [facility] N/A: Aorta ENDOLOGIX 01/16/2020 A25-25/C75- O20V / [id number] / documented as of this encounter Procedures Procedure Name Priority Date/Time Associated Diagnosis Comments XR L SPINE COMPLETE STAT 03/20/2024 4 :40 PM EDT Chronic left-sided low back pain without sciatica XR T SPINE AP AND LATERAL STAT 03/20/2024 4:39 PM EDT Chronic midline thoracic back pain documented in this encounter Results * XR L SPINE COMPLETE (03/20/2024 4:40 [...] degeneration at L2-L3. Javon Scales DO RADIOLOGY ([facility]) documented in this encounter Visit Diagnoses Diagnosis Chronic midline thoracic back pain- Primary Chronic left-sided low back pain without sciatica Spinal stenosis of lumbar region at multiple levels Spinal stenosis, lumbar region, without neurogenic claudication History of bladder cancer Personal history of malignant neoplasm of bladder Atherosclerosis of [place] coronary artery of [place] heart without angina pectoris Scoliosis of thoracolumbar [...] aneurysm Blood vessel replaced by other means documented in this encounter Advance Directives * Full Code (Latest Code Status on File) Date Activated Date Inactivated Comments 03/29/2017 2:46 PM 03/31/2017 3:33 PM This order reflects the patients wishes and were consensually agreed upon. Care Teams Cost Recorder Relationship Specialty Start Date End Date Javon Scales DO [address] [place] [facility] [place] [place] [address] PCP - General Internal Medicine 11/19/23 documented as of this encounter
--- OUTSIDE RECORDS SUMMARY | 2024-05-15 18:58 | External Medical Summary | Summary of Care ---
Author Name Unknown Organization [facility] Address [address] [place] [address] Phone [phone] Care Team Providers Care Plastic Eye Technician Name Role Phone Javon Scales Primary Care Provider [phone] Reason for Visit * Reason Onset Date Comments Advice 03/14/2024 Encounter Details Date Type Department Care Team (Late st Contact Info) Description 03/14/2024 Telephone Urology, [facility] [address] [place] [address] Jose Lisa MD [address] [place] [address] Advice Allergies Active Allergy Reactions Criticality Noted Date [...] as of this encounter (statuses as of 03/14/2024) Medications Medication Sig Dispensed Refills Start Date End Date Status CO Q 10 10 MG PO CAPS Active VITAMIN B-6 100 MG PO TABS 200mg three times per week 0 12/12/2007 Active OMEGA 3 1000 MG PO CAPS 1200 mg daily Active TUMS 500 MG PO CHEW as needed Activ e VITAMIN D3 1000 UNITS PO [...] needed for Constipation. 1 Tab 05/29/2019 Active Additional Information Patient not taking.Informant: Patient, Reported on 03/13/2024 clotrimazole-betame thasone (LOTRISONE) 1-0.05 % cream APPLY [...] 1 Capsule daily . Active Saline Nasal Corn 0.65 % Nasal Solution (Juliaetta)Indications: Epistaxis Administer into nostril 2 Sprays in the morning AND 2 Sprays before bedtime. 30 mL 12 07/29/2021 Active Nitroglycerin 0.4 MG Sublingual Tablet Sublingual (Nitrostat)Indicati ons:Atherosclerosis of [place] coronary artery of [place] heart without angina pectoris one tab under tongue as needed for chest pain maximum 3 doses 25 Tablet 5 09/23/2021 Active Additional Information Patient not taking.Informant: Patient, Reported on 03/13/2024 Pravastatin Sodium 20 MG Oral Tablet (Pravachol)Indicati [...] (Tenormin)Indicatio ns:HTN, goal below 140/90,Atherosclero sis of t[place] coronary artery of [place] heart without angina pectoris Take 1 tablet by mouth twice daily 200 Tablet 1 02/08/2024 Active Polyethylene Glycol 3350 17 GM/SCOOP Oral Powder (MiraLax)Indication s:Other constipation Take 17 g by mouth in the morning. Take 1 capful daily in the morning.. 03/02/2024 Active Psyllium 58.6 % Oral Packet (Metamucil) Take 1 Packet by mouth in the morning. 03/02/2024 Active Additional Information Patient not taking.Informant: Patient, Reported on 03/13/2024 Preparation H 0.25-14-74.9 % Rectal Ointment (Preparation H) Administer into the rectum 4 times a day as needed (Hemorrhoids). 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 (Household - for ages [...] Telephone Encounter - Ashley Gudino RN - 03/14/2024 10:52 AM EDT Returned call to daughter Lore. She is wanting to know if anything was found in the bladder during surgery. Reported the operative reports states a small bladder tumor was found that was 1 cm. This was resected and sent to pathology. Patient is scheduled on 03-30-[address] Lisa for post op follow up and review of pathology. Daughter appreciated call. Ashley Gudino RN, MSN 03/14/2024 10:53 AM * Telephone Encounter - Sara Simmons OSA - 03/14/2024 9:43 AM EDT Pt had surgery 03/13/24 daughter wasn't there to talk to would like a call letting her know how it went. documented in this encounter Plan of Treatment Upcoming Encounters Date Type Department Care Team (Late st Contact Info) Description 03/30/2024 11:00 AM EDT Office Visit Urology, [facility] [address] [place] [address] Jose Lisa MD [address] [place] [address] 04/06/2024 11:00 AM EDT Office Visit Gastroenterology, [facility] [address] [facility] [address] Makayla Moody CRNP [address] [place] [address] 04/21/2024 2:20 PM EST Office Visit Family Practice [address] [place] [address] [address] [place] [address] Javon Scales, [address] [place] [address] 05/03/2024 1:45 PM EST Office Visit Urology, [facility] [address] [place] [address] Baudilio Rosas MD [address] [place] [address] 07/28/2024 1:00 PM EST Procedure Only Urology, [facility] [address] [place] [address] Jose Lisa MD [address] [place] [address] 08/08/2024 2:45 PM EST Office Visit Hematology/Oncology [facility] [address] [place] [id number] Martir Lazar MD [address] [facility] [place] [address] 09/05/2024 4:00 PM EDT Office Visit Cardiology, [facility] [address] [facility] [place] [address] Sridhar Fay MD [address] [place] [address] 09/26/2024 11:00 AM EDT Nurse Only Family Practice [address] [place] [address] [place] [address] Kelli Steele, RN [address] [place] [address] Health Maintenance Due Date Last Done Comments COVID-19 Vaccine ( season) 2024 05/19/2022, 04/24/2021, 09/06/2020, Additional history exists CKD PHOS USE SMARTSET 47685 07/27/202407/09, 02/25/2022, 01/29/2021 Adult Wellness Visit 09/20/2024 09/21/2023, 01/30/2022, 01/29/2021 Depression Screening 09/20/2024 09/21/2023 Albumin/Creatinine Ratio 03/02/2025 024, 04/26/2023, 07/13/2022, Additional history exists CKD HGB USE SMARTSET 47325 03/11/202503/11, 03/11/2024, 03/10/2024, Additional history exists DTap/Tdap [...] this encounter Medical Devices Implanted Type Area Ovens Supervisor Device Identifier Shelf Expiration Date Model / Serial / Lot Bifurcated Endograft Implanted:Qty: 1 on 03/29/2017 by Lisa Emerson MD [place] [facility] [place]A: Aorta ENDOLOGIX 01/13/2018 [id number] [id number] / [id number] / Proximal Endograft Implanted:Qty: 1 on 03/29/2017 by Lisa Emerson MD at [place] [facility] [place] N/A: Aorta ENDOLOGIX 01/16/2020 [id number] / [id number] / documented as of this encounter Advance Directives * Full Code (Latest Code Status on File) Date Activated Date Inactivated Comments 03/29/2017 2:46 PM 03/31/2017 3:33 PM This order reflects the patients wishes and were consensually agreed upon. Care Teams Plastic Eye Technician Relationship Specialty Start Date End Date Javon Scales DO [address] [place] [address] PCP - General Internal Medicine 11/19/23 documented as of this encounter
--- OUTSIDE RECORDS SUMMARY | 2024-05-15 18:58 | External Medical Summary | Summary of Care ---
Author Name Unknown Organization [facility] Address [address] [place] [address] Phone [phone] Care Team Providers Care Nuclear Equipment Operator Name Role Phone Javon Scales Apolonia ARMENTA Primary Care Provider [phone] Reason for Visit * Auth/Cert Specialty Diagnoses / Procedures Referred By Contlaura t Referred To Contact Diagnoses Malignant neoplasm of overlapping sites of bladder (HCC) Malignant neoplasm of overlapping sites of bladder (HCC) [C67.8] Procedures CYSTOSCOPY/TREAT SML BLADDER TUMOR CYSTOURETHROSCOPY WITH FULGURATION SMALL BLADDER TUMOR Jose Lisa MD [address] [place] [address] Or [facility] [address] [place] [address] Referral ID Status Reason Start Date Expiration Date Visits Re quested Visits Authorized [id number] Encounter Details Date Type Department Care Team (Latest Contact Info) Description 03/13/2024 7:17 AM EDT - 03/13/2024 1:12 PM EDT Hospital Encounter [facility], OPERATING ROOM [facility] [address] [place] [address] Jose Lisa MD [address] [place] [address] Discharge Disposition: Home - Self Care Allergies Active Allergy Reactions Criticality Noted Date [...] TUMS 500 MG PO CHEW as needed Active VITAMIN D3 1000 UNITS PO CAPS Take by mouth daily. 06/14/2013 Active fluticasone (FLONASE) 50 MCG/ACT nasal sprayIndications:Maribel calabrese Administer 2 Sprays into each nostril daily. [...] Patient not taking.Informant: Patient, Reported on 03/13/2024 clotrimazole-betam ethasone (LOTRISONE) 1-0.05 % cream APPLY [...] 1 Capsule daily . Active Saline Nasal [place] 0.65 % Nasal Solution (Samak)Indications :Epistaxis Administer into nostril 2 Sprays in the morning AND 2 Sprays before bedtime. 30 mL 12 07/29/2021 Active Nitroglycerin 0.4 MG Sublingual Tablet Sublingual (Nitrostat)Indicat ions:Atheroscleros is of [place] coronary artery of [place] heart without angina pectoris one tab under tongue as needed for chest pain maximum 3 doses 25 Tablet 5 09/23/2021 Active Additional Information Patient not taking.Informant: Patient, Reported on 03/13/2024 Pravastatin Sodium 20 MG Oral Tablet (Pravachol)Indicat [...] (Tenormin)Indicati ons:HTN, goal below 140/90,Atheroscler osis of [place] coronary artery of [place] heart without angina pectoris Take 1 tablet [...] oxyCODONE HCl 5 MG Oral Tablet (Oxy IR)Indications:Lum bar degenerative disc disease,Spinal stenosis of lumbar region at multiple levels,Chronic bilateral low back pain with bilateral sciatica Take 1 Tablet by mouth every 8 hours as needed for Pain, Severe. 90 Tablet 03/03/2024 Active Pantoprazole Sodium 40 MG Oral Tablet Delayed Release (Protonix)Indicati ons:Thrombocytopen ia (HCC) Take 1 Tablet by mouth in the morning for 4 days. 4 Tablet 03/08/2024 03/13/2024 documented as of this encounter (statuses as [...] CORONARY ATHEROSCLEROSIS OF UNSPECIFIED TYPE OF VESSEL, CHICKEN RANCH OR GRAFT History of bladder cancer documented [...] mRNA, LNP-s, No Pre serve, 2-Dose Series (Socialize) 04/24/2021,09/06/2020,08/09/2020 Covid-19, Mrna, Lnp-s, Pf, B ivalent, 30 Mcg, IM, 12 yrs and above (Socialize) 05/19/2022 H1N1 2009 Influenza, IM 05/28/2009 Influenza, [...] Sign Reading Time Taken Comments Blood Pressure 157/69 03/13/2024 12:35 PM EDT Pulse 57 03/13/2024 12:35 PM EDT Temperature 36 C (96.8 F) 03/13/2024 12:05 PM EDT Respiratory Rate 20 03/13/2024 12:35 PM EDT Oxygen Saturation 100% 03/13/2024 12:35 PM EDT Inhaled Oxygen Concentration - - Weight 61.4 kg (135 lb 4.8 oz) 03/13/2024 7:31 A M EDT Height 167.6 cm (5' 6") 03/13/2024 7:31 AM EDT Body Mass Index 21.84 03/13/2024 7:31 AM EDT documented in this encounter Functional Status [...] No 03/29/2017 documented as of this encounter Discharge Instructions * Discharge Instr - AVS* Prem Griffin MD - 03/13/2024 11:28 AM EDT INSTRUCTIONS: POST TURBT (Transurethral Resection of Bladder Tumor) DIET: 1. It is okay to eat or drink whatever you want. 2. We encourage you to increase your fluid intake. ACTIVITY: It is okay to climb stairs when discharged from the hospital. Walking is good exercise, which improves circulation. Do not over do it! Go easy at first and slowly increase the distance, as you feel better. DRIVING: Ok to drive once off narcotics for 24 hours. You will notice some bleeding and small clots when you urinate. This is normal. If you have continuous bleeding with the passage of large clots, or if you are unable to urinate please call the office. PAIN: You may take tylenol for pain. If you have been given a prescription for a narcotic pain medication(oxycodone or hydrocodone) take as directed. BOWELS: One should avoid straining during a bowel movement. You may be given a stool softener to promote regular bowel movements. Take stool softeners or laxatives if you become constipated. FOLLOW-UP: A follow up appointment will be made for you with Dr. Lisa in 1-2 weeks. You will be called with this appointment. If you are not contacted about this appointment within 1 week you should call [phone] to confirm the date. documented in this encounter Progress Notes * Prem Griffin MD - 03/13/2024 11:40 AM EDT [facility] [address] [facility] [address] OUTPATIENT SURGERY DISCHARGE SUMMARY NOTE Name: Cedric Sam Jr. Location: [facility] Date: 03/13/2024 Time: 11:40 AM Surgery Date: 03/13/2024 Procedure: CYSTOURETHROSCOPY WITH FULGURATION SMALL BLADDER TUMOR N/A Surgeon: Jose Lisa MD Discharge Diagnosis: bladder cancer After examination of this patient, I have determined he is ready for discharge to home when the patient meets criteria. Discharge instructions were given to the patient. documented in this encounter H&P Notes * Prem Griffin MD - 03/13/2024 10:18 AM EDT History and Physical - Urology [facility] [address] Name: Cedric Sam Jr. Location: [facility] Date: 03/13/2024 Time: 10:18 AM HPI: Cedric Sam Jr. is a 88 year old male who presents today for TURBT. Clinical history as detailed below: 11/23/18: right ureteral stent removed, cytology atypical [...] Ta high grade. 07/10/21-08/14/21: second induction BCG 02/2022 - completed maintenance BCG 08/07 - cysto negative, cytology atypical 06/2023 - cysto negative, cytology atypical 01/2024- cysto negative but cytology showing HG UC He reports no interval changes in health since last seen in clinic. 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 10/01/10 diverticulosis, IH, EH, 3 polyps--adenomatous tissue, repeat in 5 yea Coronary atherosclerosis cabg 1997 Dyslipidemia, goal to be determined HTN, goal to be determined Lumbar degenerative disc disease 06/22/2019 Other malignant neoplasm of skin, site unspecified Basal Cell CA PAST SURGICAL HISTORY: Past Surgical History: Procedure Laterality Date COLONOSCOPY W/ LESION REMOVAL, SNARE 10/01/10 diverticulosis, IH, EH, 3 polyps--adenomatous tissue, repeat in 5 years COLONOSCOPY, DIAGNOSTIC (RECTUM) 10/23/2015 benign polyps, diverticulosis/[facility] CYSTO/URETERO W/LITHOTRIPSY Right 02/28/2019 CYSTOURETHROSCOPY URETEROSCOPY WITH LITHOTRIPSY AND STENT INSERTION performed by Alen Aguilar MD at OR [facility] CYSTOSCOPY 03-05-2010 CYSTOSCOPY/INSERTION OF STENT Right 12/19/2018 CYSTOURETHROSCOPY WITH INSERTION URETERAL STENT performed by Alen Aguilar MD at OR [facility] CYSTOSCOPY/TREAT LGE BLADDER TUMOR N/A 10/07/2018 CYSTOURETHROSCOPY WITH FULGURATION LARGE BLADDER TUMOR performed by Alen Aguilar MD at OR [facility] CYSTOSCOPY/TREAT LGE BLADDER TUMOR N/A 05/22/2021 CYSTOURETHROSCOPY WITH FULGURATION LARGE BLADDER TUMOR performed by Alysa Valente MD at OR [facility] CYSTOURETERO W/BIOPSY Right 12/19/2018 CYSTOURETHROSCOPY URETEROSCOPY WITH BIOPSY AND OR FULGURATION LESION performed by Alen Aguilar MD at OR [facility] CYSTOURETERO W/BIOPSY N/A 02/28/2019 CYSTOURETHROSCOPY URETEROSCOPY WITH BIOPSY AND OR FULGURATION LESION performed by Alen Aguilar MD at OR [facility] CYSTOURETERO W/BIOPSY Bilateral 09/21/2019 CYSTOURETHROSCOPY URETEROSCOPY WITH BIOPSY AND OR FULGURATION LESION performed by Alysa Valente MD at OR [facility] CYSTOURETHROSCOPY W/BIOPSY N/A 05/22/2021 CYSTOURETHROSCOPY WITH BIOPSY performed by Alysa Valente MD at OR [facility] ENDOVASC ABDO REPR W/BI DEVICE N/A 03/29/2017 ENDOVASCULAR REPAIR ABDOMINAL AORTIC ANEURYSM BIF PROS 1 LIMB performed by Lisa Emerson MD at OR [facility] FLUORO PYELOGRAM RETROGRADE Left 02/28/2019 UROGRAHY, RETROGRADE, WITH OR WITHOUT KUB performed by Alen Aguilar MD at OR [facility] FLUORO PYELOGRAM RETROGRADE Bilateral 09/21/2019 UROGRAHY, RETROGRADE, WITH OR WITHOUT KUB performed by Alysa Valente MD at OR [facility] INFORMATION open heart surgery [facility] INFORMATION 07/1999 bladder [facility] danella INFORMATION 03/29/2017 model# NXV70-40/[id number] AFX Endovascular AAA Stent Graft Extension INFORMATION 03/29/2017 model# A25-25/[id number]-X92K AFX Endovascular AAA Stent Limb Extension INJECT DX/THER SUBSTANCE INTERLAMINAR LUMBAR/SACRAL W IMAGE GUIDE 05/25/2019 INJECTION SPINE LUMBAR OR SACRAL performed by Michel Gil DO at OR [facility] INJECT DX/THER SUBSTANCE INTERLAMINAR LUMBAR/SACRAL W IMAGE GUIDE 06/22/2019 INJECTION SPINE LUMBAR OR SACRAL performed by Michel Gil DO at OR [facility] INJECT DX/THER SUBSTANCE INTERLAMINAR LUMBAR/SACRAL W IMAGE GUIDE 02/01/2020 INJECTION SPINE LUMBAR OR SACRAL performed by Michel Gil DO at OR [facility] IOF CT GUIDED NEEDLE BIOPSY 03/06/2011 CT GUIDED NEEDLE ASPIRATION BIOPSY performed by DUDLEY WARNER at RADIOLOGY [facility] IR ENDOVASCULAR REPAIR ILIAC 04/17/04 right common iliac aneurysm stent graft repair, right hypogastric embolization, Dr. 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 Noel REMOVAL OF TONSILS, UNDER AGE 12 Tonsils Removal,<12 Y/O FAMILY HISTORY: Family History Problem Relation Name Age of Onset Cancer Mother breast Hypertension Father abdominal aneurysm Diabetes Mother Heart Disorder Father Cancer Other many family members Stroke Other many family members Hypertension Sister SOCIAL HISTORY: Social History Tobacco Use Smoking status: Former Current packs/day: 0.00 Average packs/day: 1 pack/day for 20.0 years (20.0 ttl pk-yrs) Types: Cigarettes Start date: 11/25/1977 Quit date: 11/25/1997 Years since quittin.3 Passive exposure: Past Smokeless tobacco: Never Tobacco comments: quit smoking about 1997 Vaping Use Vaping status: Never Used Substance Use Topics Alcohol use: Yes Comment: occassionally Drug use: No ALLERGIES: Ciprofloxacin, Finasteride, Flomax [tamsulosin hcl], Levaquin [levofloxacin], Lipitor [atorvastatin], Lisinopril, and Zocor [simvastatin] HOME MEDS: Prior to Admission medications Medication Sig Last Dose Discont. dexAMETHasone 4 MG Oral Tablet (Decadron) Take 10 Tablets by mouth daily with breakfast for 4 days. Pantoprazole Sodium 40 MG Oral Tablet Delayed Release (Protonix) Take 1 Tablet by mouth in the morning for 4 days. oxyCODONE HCl 5 MG Oral Tablet (Oxy IR) Take 1 Tablet by mouth every 8 hours as needed for Pain, Severe. Polyethylene Glycol 3350 17 GM/SCOOP Oral Powder (MiraLax) Take 17 g by mouth in the morning. Take 1 capful daily in the morning.. Preparation H 0.25-14-74.9 % Rectal Ointment (Preparation H) Administer into the rectum 4 times a day as needed (Hemorrhoids). Psyllium 58.6 % Oral Packet (Metamucil) Take 1 Packet by mouth in the morning. Atenolol 25 MG Oral Tablet (Tenormin) Take 1 tablet by mouth twice daily amLODIPine Besylate 2.5 MG Oral Tablet (Norvasc) TAKE 1 TABLET BY MOUTH IN THE MORNING Amoxicillin 500 MG Oral Capsule (Amoxil) TAKE FOUR CAPSULES BY MOUTH ONE HOUR BEFORE APPOINTMENT Silodosin 4 MG Oral Capsule (Rapaflo) Take 1 Tablet by mouth in the morning. Aspirin 81 MG Oral Tablet Delayed Release Take 1 Tablet by mouth in the morning. Fluocinonide 0.05 % External Solution APPLY SOLUTION TOPICALLY TO AFFECTED AREA OF SCALP NIGHTLY ASNEEDED FOR ITCHING Ketoconazole 2 % External Shampoo (Nizoral) USE SHAMPOO AT LEAST 3 TIMES PER WEEK, LATHER, WAIT 5 MINUTES THEN RINSE Pravastatin Sodium 20 MG Oral Tablet (Pravachol) TAKE 1 TABLET BY MOUTH ONCE DAILY AT BEDTIME Nitroglycerin 0.4 MG Sublingual Tablet Sublingual (Nitrostat) one tab under tongue as needed for chest pain maximum 3 doses Saline Nasal [place] 0.65 % Nasal Solution (Samak) Administer into nostril 2 Sprays in the morning AND 2 Sprays before bedtime. PreserVision AREDS 2+Multi Vit Oral Capsule Take by mouth 1 Capsule daily . Triamcinolone Acetonide 0.1 % External Lotion (Aristocort) Apply to affected area at groin twice daily as needed clotrimazole-betamethasone (LOTRISONE) 1-0.05 % cream APPLY TOPICALLY TO RIGHT LEG AREA TWICE DAILY senna-docusate (SENOKOT S) 8.6-50 MG per tablet Take 1 Tab by mouth 2 times a day as needed for Constipation. Multiple Vitamins-Minerals (MULTIVITAMIN ADULT EXTRA C) CHEW 1 Tablet in the morning. Docusate Sodium 100 MG Oral Capsule One pill by mouth twice a day as needed fluticasone (FLONASE) 50 MCG/ACT nasal spray Administer 2 Sprays into each nostril daily. VITAMIN D3 1000 UNITS PO CAPS Take by mouth daily. TUMS 500 MG PO CHEW as needed OMEGA 3 1000 MG PO CAPS 1200 mg daily VITAMIN B-6 100 MG PO TABS 200mg three times per week CO Q 10 10 MG PO CAPS REVIEW OF SYSTEMS: Pertinent +/- in HPI PHYSICAL EXAMINATION: Most Recent Vital Signs: BP: 162 mmHg/74 mmHg (03/13/24 1011) Pulse: 78 (03/13/24 1011) Resp: 12 (03/13/24 1011) Temp: 36 C (03/13/24 101) Temp Summary: Temp Min: 36 C (96.8 F) Max: 36.2 C (97.2 F) SpO2: 100 % (03/13/24 101) O2 flow rate: Supplemental O2 Delivery: Room Air, None (03/13/24 101) GEN: NAD, awake, alert and responsive HEAD: Normocephalic, atraumatic CV: Regular rate CHEST: Normal WOB on RA ABDOMEN: soft, NTND EXT: No deformities NEURO: grossly intact PSYCH: normal affect LAB LINKS:Labs reviewed as indicated below: CBC Lab Results Component Value Date/Time WBC 5.30 03/11/2024 08:20 AM WBC 6.28 07/04/2020 10:29 AM HGB 12.6 (L) 03/11/2024 08:20 AM HGB 13.2 (L) 07/04/2020 10:29 AM HCT 36.9 (L) 03/11/2024 08:20 AM HCT 40.1 07/04/2020 10:29 AM PLT 69 (L) 03/11/2024 08:20 AM PLT 79 (L) 07/04/2020 10:29 AM BMP Lab Results Component Value Date/Time NA 139 03/02/2024 10:52 AM NA 142 06/04/2020 08:29 AM POTASSIUM 4.5 03/02/2024 10:52 AM POTASSIUM 4.4 06/04/2020 08:29 AM CL 105 03/02/2024 10:52 AM CL 104 06/04/2020 08:29 AM CO2 29 03/02/2024 10:52 AM CO2 30 06/04/2020 08:29 AM BUN 19 03/02/2024 10:52 AM BUN 23 (H) 06/04/2020 08:29 AM CREAT 0.9 03/02/2024 10:52 AM CREAT 1.2 06/04/2020 08:29 AM IMAGING: No orders to display IMPRESSION: Cedric Sam Jr. is a 88 year old male presents for TURBT PLAN: - OR today for TURBT - NPO - abx chief station engineer Prem Griffin MD Resident [facility] [phone] documented in this encounter Nursing Notes * Moira Reich RN - 03/13/2024 10:30 AM EDT Dual Licensed Skin Assessment completed by Alexia Reich RN and Landry Snow RN. The patient is/has a N/A Skin Breakdown (includes non blanchable erythema): No * Anjali Schroeder RN - 03/09/2024 4:46 PM EDT Presurgery instructions sent to patient via [employer] message. Pre-operative chart review completed-instructions provided based on current medication list in [facility]. NO ANESTHESIA EVAL REQUESTED PER CASE DOCUMENTATION. PREOP PATIENT INFORMATION AND EDUCATION: MEDICATION INSTRUCTIONS: The day of surgery/procedure, you may TAKE the following medications with a sip of water up to 2 hours prior to your arrival time: -Amlodipine -Atenolol -Oxycodone if needed -Pantoprazole AVOID/ DO NOT TAKE any medications the morning of surgery/procedure that are not listed above. STOP taking the following medications the noted number of days prior to surgery/procedure unless otherwise specified by your surgeon: Please follow surgeon's instructions regarding use of Aspirin, Coumadin, Plavix, Eliquis, and any other blood thinner including NSAIDs (non-steroidal anti- inflammatory drugs, eg, Advil, Ibuprofen, Motrin, Aleve, Naproxen); if you have any questions regarding your anticoagulation therapy please contact your surgeon's clinic. Please verify any proposed stoppage of your anticoagulation therapy with the agent's prescribing provider. 10 days prior to surgery/procedure Stop all Herbal supplements, Green Tea, Turmeric, Melatonin, CBD, THC, etc. Stop all Vitamins (including Vitamin E) 24 hours prior to surgery/procedure DO NOT consume any alcohol. DO NOT use medical marijuana. DO NOT smoke or use tobacco products of any kind after midnight prior to surgery. *Using any of these products may increase your risks of procedural complications. IF IT IS LESS THAN RECOMMENDED STOPPAGE TIME PLEASE STOP AT TIME OF NOTIFICATION. FASTING RECOMMENDATIONS: To reduce risk, it is important for all elective surgery patients to follow the specific fasting guidelines listed below. If you have received more stringent guidelines, please follow the MOST RESTRICTIVE guidelines that you have been provided. DO NOT EAT after midnight on the night prior to your surgery date. You are allowed to drink clear liquids up to two hours prior to arrival time to the hospital or surgery center. Examples of clear liquids include water, clear fruit juice without pulp, clear carbonated beverages, clear tea, and black coffee. Any drinks given by your surgical service take as directed. Infant/pediatric patients who currently drink breast milk, formula, and non-human milk must not eat after midnight. These patients are allowed to drink only the liquids listed below up to two hours prior to arrival time to the hospital or surgery center: Ingested Material Minimum Fasting Time Clear liquid After midnight up to 2 hours prior to arrival time Breast milk Up to 4 hours prior to arrival time Infant formula Up to 6 hours prior to arrival time Non-human milk Up to 6 hours prior to arrival time THE DAY BEFORE YOUR SURGERY: -Drink plenty of fluid the day before your surgery. Contact your surgeon's office if you develop any of the following within 2 weeks of surgery: A cold Infection Fever Shingles Chicken pox or exposure to chicken pox Open areas such as scrapes, cuts, jenkins or other skin conditions Rashes GENERAL INSTRUCTIONS FOR PREPARING FOR SURGERY: BATHING INSTRUCTIONS: Bathe the evening prior to and the morning of surgery/procedure. Cleanse your body using ONLY anti-bacterial soap (eg, Dial, Safeguard) or any specific soap/cleansers and instructions provided by your surgeon (eg, Chlorhexidine). -You should brush your teeth the morning of surgery. Do NOT apply any lotions, powders, sprays, creams, oils, make-up, or deodorants after bathing. No hairspray, or nail french on fingers or toes. Day of surgery/procedure do not use tampons. If you wear contacts wear your eyeglasses if available otherwise bring your contact supplies with you to remove them prior to your surgery/procedure. If you wear glasses or dentures, please bring cases in which you can store them during your surgery. Please remove all piercings and jewelry and leave them at home. Wear comfortable and loose clothing. -Please leave all valuables at home. -If you use a CPAP and are staying overnight, please bring your mask and tubing with you to the hospital. -If you use an assistive mobility device (walker, cane, etc), please label it with your name and bring to hospital. -An escort highway truck driver is required if you are being discharged the same day of the surgery. You should have a responsible adult over the age of 18 [address] you home. This person should be present with youin the hospital at the time of discharge and for the first 24 hours after the surgery to support your needs. If you are taking a taxi home, you must have your responsible democrat accompany you in the taxi ride home at the time of discharge. OR times subject to change. Please check voicemail messages the day/evening before your surgery forany updates. PRE-OP: You will be taken to the pre-op area where your vital signs (blood pressure, pulse and temperature)will be taken. Any preparations that need to be done will be done there. When it is time for your surgery, you will be taken to the operating room. PARENTS OF PEDIATRIC PATIENTS WILL BE ALLOWED TO STAY WITH THEIR CHILDREN UNTIL THEY ARE ESCORTED TO THE OPERATING ROOM OUTPATIENT SURGERY PATIENTS: After your surgery you will be taken to the Same Day Surgery Unit when you are awake and will go home from there. You will get instructions about your home care before you leave. Arrange to have someone drive you home from the hospital. You may not drive for 24 hours after anesthesia. You must havean adult stay with you at home for 24 hours after your operation. This is very important. If you are not able to comply with these guidelines, your Short Stay surgery cannot be done. ADMISSION PATIENTS: After your stay in the recovery area, you will be taken to your room. Your family may visit you in your room based on current visitation policy. If a next day discharge is expected, it is important to make arrangements for a highway truck driver to take you home. Please be aware our visitation policies are subject to change Professionals, attendants, caregivers or family members are allowable visitors for patients with intellectual, developmental or cognitive disabilities, communication barriers or behavioral concerns. Because patients' and families' needs vary, they will be taken into account when applying visitation restrictions. ANESTHESIA INFORMATION This information has been prepared to help you and your family better understand the process of anesthesia, so that you may help make well-informed decisions about your care. This information is alsoprovided to guide your completion of the [facility] anesthesia consent form which addresses real, but infrequent, problems associated with anesthesia. IMPORTANT INFORMATION TO PREVENT YOUR SURGERY FROM BEING CANCELLED/ RESCHEDULED: --You are required to have a highway truck driver to take you home whether you are admitted to the hospital following your surgery or not --You are required to have a responsible adult with you for the first 24 hours after surgery to support your needs Types of Anesthesia: Local Anesthesia Local anesthetic drugs (numbing drugs) are usually injected into the tissues to numb just the specific location of your body requiring minor surgery, such as an area of your hand or foot. Regional Anesthesia -Regional anesthesia involves the use of local anesthetics (numbing drugs) to numb larger areas of your body by blocking nerves to those areas. This is commonly referred to as a nerve block. Another way of performing regional anesthesia is by blocking nerves of the spinal cord by injecting numbing m edicines with great exactness around those nerves. This is called spinal or epidural anesthesia depending on exactly where the medication is injected. The type of regional anesthesia selected dependson the type of surgery and whether regional anesthesia is being done to help with pain after surgery or as a part of the anesthesia for surgery. You may remain awake, be sedated, or be given a general anesthetic depending on the type of surgery and the type of regional anesthesia performed Monitored Anesthesia Care (MAC) -Describes a range of sedation that can be given to a patient undergoing a procedure. The level of sedation usually depends on what is needed for the procedure being performed. A patient could be awake and aware of the procedure being performed but be relaxed and able to follow instructions as needed or may be unaware of what is happening and only rouse to significant stimulation. A patient may be able to speak, hear things around them, and answer questions and follow commands but is not in pain or anxious. A patient may experience varying depths of sedation during the procedure. The use of general anesthesia could result if this type of anesthesia is ineffective. General Anesthesia - Occurs by using a combination of medications to put a patient into a deep, sleep-like, unresponsive state for surgery. This is required for many surgical procedures. Under general anesthesia, a patient does not feel pain and is unaware of what is happening during the procedure. Systems in the body may not function normally while a patient is under general anesthesia. They are monitored by the anesthesia provider and may need to be assisted while a patient is under general anesthesia. For example, a breathing device may need to be placed in the airway to assist breathing and medications may need to be given to ensure that your blood pressure and heart rate remain normal. Risks of Anesthesia: Regional/Local/Nerve Blocks -Include but are not limited to, , cardiac or respiratory arrest, permanent complete paralysis, permanent nerve injury, seizure, spinal headache, backache, pain in buttocks and legs, infection, bleeding, leakage of spinal fluid, inadequate pain relief, bowel or bladder dysfunction, prolonged numbness or pain, temporary drop in blood pressure, or allergic reaction to the medications. Monitored Anesthesia Care (MAC) -Common risks include temporary dizziness, light-headedness, nausea and/or vomiting, and leakage ofintravenous fluid into the tissues with swelling or discoloration of the area or residual pain. Less common risks include, but are not limited to, , heart attack, permanent brain damage, stroke,pneumonia, blood clots, awareness, nerve stretch injury of your arm, neck or leg, permanent liver damage and allergic reaction to the medications. General Anesthesia -More common risks include temporary sore throat, pain in the neck or other muscles, dizziness, light-headedness, nausea and/or vomiting, and leakage of intravenous fluid into the tissues with swelling or discoloration of the area or residual pain. Less common risks include, but are not limited to,, heart attack, permanent brain damage, stroke, pneumonia, blood clots, irritation of the cornea of your eye, vision loss, loosened or broken teeth, or other oral injuries, awareness, nerve stretch injury of the arm, neck or leg, hoarseness, laryngospasm, permanent liver damage and allergic reaction to the medications. History of anesthesia complications: If you or a family member have had a complication related to anesthesia such as difficulty with placement of a breathing tube or a serious reaction to a medication administered for anesthesia, pleasetell your anesthesia provider. Having this information will help keep you safe while under anesthesia Nausea: A common side effect of anesthesia is nausea, but some patients do experience both nausea and vomiting. If you have experienced nausea or vomiting after anesthesia in the past, be sure to tell your anesthesia provider so medication can be given to help prevent it from happening again. Patient safety/consenting process: All surgical procedures and anesthetics have some small risks. They are dependent upon many factorsincluding the type of surgery and your medical condition. That is why it is important to know aboutany underlying medical problems, how they are treated and how they can be managed to reduce the risks of anesthesia and surgery. Thus, it is important for your anesthesia provider to ask detailed questions about your medical history, and to know what prescription medications you are taking, including dosages and schedules, as well as any over the counter or herbal medicines and supplements. You must notify the doctor of any of the following: -if you are or possibly -if you have any sensitivity to medications -present mental and physical condition -if recently consumed alcohol or non-clear liquids -if you are presently on psychiatric mood-altering drugs or other medications If you are a female of child-bearing age and you use any form of hormone-based contraception, please continue to use it and, in addition, use an alternative form of contraception, such as condoms andspermicide for a month after discharge from the hospital. This is because during the hospitalization you might receive one or more medications that may render hormone-based contraceptives ineffectivefor several days or weeks. The affected contraceptives include, but are not limited to, the usual contraceptive pills, most types of intrauterine devices, Depo-Provera shots, hormonal patches, and hormonal vaginal rings. If you are not sure, contact your primary care physician, your victims advocate clerk/specialist, or your surgeon to check if this warning applies to you. You may need to have invasive monitoring, which includes the insertion of catheters into your veinsand arteries. This is done to measure pressures, to take blood samples, and may be used in emergentsituations for intravenous access. This monitoring has risks including, but not limited to, injury to your arteries, lung collapse, bleeding, nerve injury as well as the risks related to anesthesia. An esophageal probe may be used to monitor your heart, this monitor has risks which include sore throat, hoarseness, difficulty with swallowing, loosened or broken teeth and esophageal injury. Major complications are rare but could include , respiratory distress, an abnormal heartbeat, infection, and bleeding. As part of the consent to administer anesthesia authorization you will discuss the following with the anesthesia doctor and his/her associates: -your present condition and diagnosis as it pertains to anesthesia or sedation administration -a description of the proposed anesthetic/sedation technique or procedure to be used -significant risks and benefits of the proposed anesthetic/sedation technique or procedure -any applicable alternatives, including their risks and benefits -if applicable, use of back-up method of contraception for 30 days after discharge -if applicable, the option of having no treatment and the potential results of this -if your procedure is in an outpatient surgery setting-the risk associated with having this procedure in this type of setting should be discussed as well as the potential need for transfer to the hospital if necessary Please be sure to have all questions that you have answered prior to signing the consent to administer anesthesia. You can make your care safer by being an active, informed patient. It is important that you are involved in your health care. Being a good patient does not mean being a silent one. If you have questions, problems, safety concerns or unmet needs, please let us know if you would like further clarification of the "Patient Rights and Responsibilities" as they pertain to you, or would like more information regarding our complaint and for grievance process, please call the site where you receive care and request to speak withthe patient advocate line. [facility]: Contact # [phone] Directions to Surgical Suite in from the Tram Entrance The Surgical Waiting Room can be found in the Lobby of [facility]. Enter through Main Lobby Entrance and the Waiting Room is directly in front of you. Proceed to check in and give them your name. Directions to Surgical Suite from the East Entrance Enter the East entrance and follow the hallway to the J elevator. Take the J elevator up to Level 1. Continue down the long hallway to the main [facility] Lobby. The Surgical Waiting Room will be on your Right. Proceed to check in and give them your Name. Directions to Surgical Suite from the Parking Garage Enter the [facility] lobby and proceed down the padilla to the left. At the end of the padilla, turn right. Continue down the long hallway to the main [facility] Lobby. The Surgical Waiting Room will be on your Right. Proceed to check in and give them your Name. THANK YOU FOR CHOOSING MICHELE! documented in this encounter OR Notes * OR Surgeon - Jose Lisa MD - 03/13/2024 11:41 AM EDT [facility] [address] [facility] [place] [address] OPERATIVE REPORT Name: Cedric Sam Jr. 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 Resected and fulgurated Specimen and Disposition: 1. Biopsy, left bladder dome for permanent section Estimated Blood Loss: minimal Drains/Implants: none Complications: None apparent Postoperative Condition: Stable to recovery Indications and History: Cedric Sam Jr. is a 88 year old male who has history of NMIBC and positive cytology. The patient was counseled on their options and agreed to undergo transurethral resection of bladdertumor. The patient signed the informed consent detailing the risk of bladder perforation, bleeding requiring repeat operation, urinary tract infection, damage to ureter, bladder and urethra. Description of Operation: The patient was brought to the operating room and was identified by name and date of . The waspositioned in the dorsal lithotomy position and all pressure points were appropriately padded. The patient was prepped and draped in the standard sterile fashion. A ''time out'' was initiated prior to procedure. Cystourethroscopy was performed with a 26-Fr resectoscope using the visual obturator. The bladder was inspected systematically with 30-degree lens and then with a 70-degree lens. The findings within the bladder are noted above. Resection of the bladder tumor was done with bipolar electrocautery. Biopsy of the area were obtained with cold cup biopsy forcep as well. Muscle was grossly present in the specimen. The specimens were evacuated and sent to pathology. The entire area was fulgurated to obtain hematosis. His bladder was emptied. The patient was extubated and transferred to recovery area in stable condition. Dr. Lisa was present and performed the entire procedure. Post-Operative Plan: - Discharge from I/O recovery when stable - RTC in 1-2 weeks for pathology discussion Prem Griffin MD Resident [facility] [phone] Urology Staff Addendum I have discussed the patient's management with the medical trainee and agree with the note. Please refer to the documented findings and plan of care. The patient's service consisted of a procedure. Iwas present for the entire procedure. documented in this encounter Plan of Treatment Upcoming Encounters Date Type Department Care Team (Late st Contact Info) Description 03/30/2024 11:00 AM EDT [facility] [address] [place] [address] Jose Lisa MD [address] [place] [address] 04/06/2024 11:00 AM EDT Office Visit Gastroenterology, [facility] [address] [place] [address] Makayla Moody CRNP [address] [facility] [place] [address] 04/21/2024 2:20 PM EST Office Visit Family Practice [address] [place] [address] [address] [place] [address] Javon Scales, [address] [place] [address] 05/03/2024 1:45 PM EST Office Visit Urology, [place] [address] [place] [address] Baudilio Rosas MD [address] [place] [address] 07/28/2024 1:00 PM EST Procedure Only Urology, [place] [address] [place] [address] Jose Lisa MD [address] [place] [address] 08/08/2024 2:45 PM EST Office Visit Hematology/Oncology [facility] [address] [place] [phone] Martir Lazar MD [address] [place] [address] 09/05/2024 4:00 PM EDT Office Visit Cardiology, [facility] [address] [place] [address] Sridhar Fay MD [address] [facility] [place] [address] 09/26/2024 11:00 AM EDT Nurse Only Family Practice [address] [place] [address] [address] [place] [phone] Kelli Steele RN [address] [place] [phone] Pending Results Name Type Priority Associated Diagnoses Date /Time SURGICAL PATHOLOGY Pathology Routine Malignant neoplasm of overlapping sites of bladder (HCC) 03/13/2024 11:11 AM EDT Scheduled Orders Name Type Priority Associated Diagnoses Orde r Schedule SURGICAL PATHOLOGY Pathology Routine Malignant neoplasm of overlapping sites of bladder (HCC) Release Upon Ordering for 1 Occurrences starting 03/13/2024, 1 completed Health Maintenance Due Date Last Done Comments COVID-19 Vaccine ( season) 2024 05/19/2022, 04/24/2021, 09/06/2020, Additional history exists CKD PHOS USE SMARTSET 11481 07/27/2024 02/2 , 02/25/2022, 01/29/2021 Adult Wellness Visit 09/20/2024 09/21/2023, 01/30/2022, 01/29/2021 Depression Screening 09/20/2024 09/21/2023 Albumin/Creatinine Ratio 03/02/2025 024, 04/26/2023, 07/13/2022, Additional history exists CKD HGB USE SMARTSET 94316 03/11/202503/11, 03/11/2024, 03/10/2024, Additional history exists DTap/Tdap [...] this encounter Medical Devices Implanted Type Area Job Placement Officer Device Identifier Shelf Expiration Date Model / Serial / Lot Bifurcated Endograft Implanted:Qty: 1 on 03/29/2017 by Lisa Emerson MD at OR [facility] N/A: Aorta ENDOLOGIX 01/13/2018 [id number] / [id number] / Proximal Endograft Implanted:Qty: 1 on 03/29/2017 by Lisa Emerson MD at OR [facility] N/A: Aorta ENDOLOGIX 01/16/2020 [id number] / [id number] / documented as of this encounter Visit Diagnoses Diagnosis Malignant neoplasm of overlapping sites of bladder (HCC)- Primary Malignant neoplasm of other specified sites of bladder documented in this encounter Administered Medications Inactive Administered Medications - up to 3 most recent administrations Medication Order MAR Action Action Date Dose Rate Site isolyte-S pH 7.4 infusion Intravenous, at 25 mL/hr, All Patients EXCEPT Dialysis patients Plasma-LYTE 148, isolyte-S, and isolyte-S pH 7.4 are considered equivalent - including for MAR barcode scanning., CONTINUOUS, Starting on Wed03/13/24 at 1045, Until Wed03/13/24 at 1713, Pre-Op Restarted 03/13/2024 11:33 AM EDT Continue from Pre-Op 03/13/2024 10:45 AM EDT 25 mL/hr New Bag 03/13/2024 10:42 AM EDT 25 mL/hr 25 mL/hr lidocaine 1 % inj 1 mg 1 mg (0.1 mL), Percutaneous, ONCE PRN Other, Difficult IV starts requiring > 20 guage catheter and/ or by patient request, Starting on Wed03/13/24 at 1010, Until Wed03/13/24 at 1042, For 1 dose, Pre-Op Given 03/13/2024 10:42 AM EDT 1 mg oxygen GAS Inhalation, OXYGEN, First dose on Wed03/13/24 at 1600, Until Discontinued, Device/Managed by: Low Flow Device, Goal SPO2 (%): 91-95, Starting Device: Non-Rebreather, Initial Flow Rate (LPM): 10, Lowest Support: Nasal Cannula: Flow 0-6 LPM. Titrate up/down by 1 LPM., Higher Support: Non-Rebreather (NRB) Mask: Minimum of 10 LPM. Titrate to maintain bag inflation., Titration Interval: Q2 minutes and as needed., Notify Provider: For sudden DECREASE in resting SPO2 to less than 85% and when escalating delivery device., Wean patient off Oxygen when the oxygen saturation is greater than or equal to 93% Oxygen On 03/13/2024 11:32 AM EDT 10 L/min(Ox ygen) documented in this encounter Active and Recently Administered Medications Times are shown in EDT. Scheduled Medication Order 03/11/2024 03/12/2024 03/13/2024 ceFAZolin in dextrose (Ancef) ivpb 2 g (COMPLETED) 2 g, IV Piggyback, ONCALL, 1 dose, Starting on Wed03/13/24 at 1010, Until Wed03/13/24 at 1058 1058 (Given - Provid er: ELENA Kevin) oxygen GAS Inhalation, OXYGEN, First dose on Wed03/13/24 at 1600, Until Discontinued, Device/Managed by: Low Flow Device, Goal SPO2 (%): 91-95, Starting Device: Non-Rebreather, Initial Flow Rate (LPM): 10, Lowest Support: Nasal Cannula: Flow 0-6 LPM. Titrate up/down by 1 LPM., Higher Support: Non-Rebreather (NRB) Mask: Minimum of 10 LPM. Titrate to maintain bag inflation., Titration Interval: Q2 minutes and as needed., Notify Provider: For sudden DECREASE in resting SPO2 to less than 85% and when escalating delivery device., Wean patient off Oxygen when the oxygen saturation is greater than or equal to 93% 1132 (Oxygen On - Pr ovider: Celine Macdonald RN)1145 (Oxygen Off - Provider: Celine Macdonald RN) Continuous Medication Order 03/11/2024 03/12/2024 03/13/2024 isolyte-S pH 7.4 infusion Intravenous, at 25 mL/hr, All Patients EXCEPT Dialysis patients Plasma-LYTE 148, isolyte-S, and isolyte-S pH 7.4 are considered equivalent - including for MAR barcode scanning., CONTINUOUS, Starting on Wed03/13/24 at 1045, Until Wed03/13/24 at 1713, Pre-Op 1042 (New Bag - Prov ider: Moira Reich RN)1045 (Continue from Pre-Op - Provider: ELENA Kevin)1132 (Paused - Provider: Anel Schroeder CRNA - Comment: Switch to gravity)1133 (Restarted - Provider: Anel Schroeder CRNA) PRN Medication Order 03/11/2024 03/12/2024 03/13/2024 lidocaine 1 % inj 1 mg (COMPLETED) 1 mg (0.1 mL), Percutaneous, ONCE PRN Other, Difficult IV starts requiring > 20 guage catheter and/ or by patient request, Starting on Wed03/13/24 at 1010, Until Wed03/13/24 at 1042, For 1 dose, Pre-Op 1042 (Given - Provid er: Moira Reich RN) sodium chloride IR 0.9 % irrigation (CANCELED) ONCE PRN INTRA PROCEDURE, Starting on Wed03/13/24 at 1103, Until Wed03/13/24 at 1129, Intra-Op 1103 (Given - Provid er: Jose Lisa MD - Comment: 4300 ml [id number] ml out) documented in this encounter Advance Directives * Full Code (Latest Code Status on File) Date Activated Date Inactivated Comments 03/29/2017 2:46 PM 03/31/2017 3:33 PM This order reflects the patients wishes and were consensually agreed upon. Care Teams Nuclear Equipment Operator Relationship Specialty Start Date End Date Javon Scales DO [address] [place] [address] PCP - General Internal Medicine 11/19/23 documented as of this encounter
--- OUTSIDE RECORDS SUMMARY | 2024-05-15 18:58 | External Medical Summary | Summary of Care ---
Author Name Unknown Organization [facility] Address [address] [place] [address] Phone [phone] Care Team Providers Care Contracts Analyst Name Role Phone Javon Scales DO Primary Care Provider [phone] Reason for Visit * Reason Onset Date Comments Advice 03/20/202403/20 Encounter Details Date Type Department Care Team (Late st Contact Info) Description 03/20/2024 Telephone Family Practice 65 [facility] [address] [place] [phone] Javon Scales DO [address] [place] [address] Advice (03/20) Allergies Active Allergy Reactions Criticality Noted Date [...] as of this encounter (statuses as of 03/20/2024) Medications Medication Sig Dispensed Refills Start Date [...] 1 Capsule daily . Active Saline Nasal Juda 0.65 % Nasal Solution ([place])Indications: Epistaxis Administer into nostril 2 Sprays in the morning AND 2 Sprays before bedtime. 30 mL 12 07/29/2021 Active Nitroglycerin 0.4 MG Sublingual Tablet Sublingual (Nitrostat)Indicati ons:Atherosclerosis of [place] coronary artery of [place] heart without angina pectoris one tab under [...] (Tenormin)Indicatio ns:HTN, goal below 140/90,Atherosclero sis of [place] coronary artery of [place] heart without angina pectoris Take 1 tablet [...] as of this encounter (statuses as of 03/20/2024) Active Problems Problem Noted Date Diagnosed Date [...] CORONARY ATHEROSCLEROSIS OF UNSPECIFIED TYPE OF VESSEL, IONE OR GRAFT History of bladder cancer documented as of this encounter (statuses as of 03/20/2024) Resolved Problems Problem Noted Date Diagnosed Date [...] and embolization 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 [facility] [place] [...] as of this encounter (statuses as of 03/20/2024) Immunizations Name Administration Dates Next Due COVID-19 mRNA, LNP-s, No Pre serve, 2-Dose Series (Omada) 04/24/2021,09/06/2020,08/09/2020 Covid-19, Mrna, Lnp-s, Pf, B ivalent, 30 Mcg, IM, 12 yrs and above (Omada) 05/19/2022 H1N1 2009 Influenza, IM 05/28/2009 Influenza, [...] No 04/26/2023 Does the household have a [facility] source of income? (Household - [...] Telephone Encounter - Kelli Mota LPN - 03/20/2024 1:08 PM EDT Daughter concerned about rib pain patient is having. Scheduled acutely today. * Telephone Encounter - Kelli Mota LPN - 03/20/2024 1:00 PM EDT Called, left message for daughter to return call. Thank you * Telephone Encounter - Christa Paredes OSA - 03/20/2024 12:46 PM EDT Is having pain in side where lump is Daughter would like a call [phone] documented in this encounter Plan of Treatment Upcoming Encounters Date Type Department Care Team (Late st Contact Info) Description 03/20/2024 3:40 PM EDT Office Visit Family Practice [address] [place] 293 [place] [address] Javon Scales, DO [address] [place] [address] 03/30/2024 11:00 AM EDT Office Visit Urology, [place] [address] [place] [address] Jose Lisa MD [address] [place] [address] 04/06/2024 11:00 AM EDT Office Visit Gastroenterology, [facility] 132 [place] [address] Makayla Moody CRNP 132 [place] [address] 04/21/2024 2:20 PM EST Office Visit Family [address] [place] [address] Javon Scales DO [address] [place] [address] 05/03/2024 1:45 PM EST Office Visit Urology, [place] [address] [place] [address] Baudilio Rosas MD [address] [place] [address] 07/28/2024 1:00 PM EST Procedure Only Urology, [place] [address] [place] [address] Jose Lisa MD [address] [place] [address] 08/08/2024 2:45 PM EST Office Visit Hematology/Oncology [facility] [address] [facility], [place] [address] Martir Lazar MD [address] [facility], [place] [address] 09/05/2024 4:00 PM EDT Office Visit Cardiology, [facility] [address] [place] [address] Sridhar Fay MD [address] [place] [address] 09/26/2024 11:00 AM EDT Nurse Only Family Practice 65 [facility], [place] 293 [place] [address] Kelli Steele, ANIA 293 [place] [address] Health Maintenance Due Date Last Done Comments COVID-19 Vaccine ( season) 2024 05/19/2022, 04/24/2021, 09/06/2020, Additional history exists CKD PHOS USE SMARTSET 81986 07/27/202407/09, 02/25/2022, 01/29/2021 Adult Wellness Visit 09/20/2024 09/21/2023, 01/30/2022, 01/29/2021 Depression Screening 09/20/2024 09/21/2023 Albumin/Creatinine Ratio 03/02/2025 024, 04/26/2023, 07/13/2022, Additional history exists CKD HGB USE SMARTSET 78226 03/11/202503/11, 03/11/2024, 03/10/2024, Additional history exists DTap/Tdap [...] this encounter Medical Devices Implanted Type Area Laborer Shaft Sinking Device Identifier Shelf Expiration Date Model / Serial / Lot Bifurcated Endograft Implanted:Qty: 1 on 03/29/2017 by [place] Emerson [place] [facility] [place]: Aorta ENDOLOGIX 01/13/2018 [id number]/11 6-40 / [id number] / Proximal Endograft Implanted:Qty: 1 on 03/29/2017 by Lisa Emerson MD [place] [facility] [place]: Aorta ENDOLOGIX 01/16/2020 A25-25/C75- O20V / [id number] / documented as of this encounter Advance Directives * Full Code (Latest Code Status on File) Date Activated Date Inactivated Comments 03/29/2017 2:46 PM 03/31/2017 3:33 PM This order reflects the patients wishes and were consensually agreed upon. Care Teams Contracts Analyst Relationship Specialty Start Date End Date Javon Scales DO [address] [place] [address] PCP - General Internal Medicine 11/19/23 documented as of this encounter
--- OUTSIDE RECORDS SUMMARY | 2024-05-15 18:58 | External Medical Summary | Summary of Care ---
Author Name Unknown Organization [facility] Address [address] [place] [address] Phone [phone] Care Team Providers Care Is/It Project Manager Name Role Phone Javon Scales DO Primary Care Provider [phone] Reason for Visit * Reason Onset Date Comments Test Results 03/21/202403/21 Encounter Details Date Type Department Care Team (Late st Contact Info) Description 03/21/2024 Telephone Family Practice 65 [facility] [address] [place] [phone] Javon Scales [address] [place] [address] Test Results (03/21) Allergies Active Allergy Reactions Criticality Noted Date [...] as of this encounter (statuses as of 03/21/2024) Medications Medication Sig Dispensed Refills Start Date [...] 1 Capsule daily . Active Saline Nasal [place] 0.65 % Nasal Solution ([place])Indications: Epistaxis Administer into nostril 2 Sprays in the morning AND 2 Sprays before bedtime. 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 120 Tablet 03/21/2024 Active documented as of this encounter (statuses as of 03/21/2024) Active Problems Problem Noted Date Diagnosed Date [...] CORONARY ATHEROSCLEROSIS OF UNSPECIFIED TYPE OF VESSEL, REDDING OR GRAFT History of bladder cancer documented as of this encounter (statuses as of 03/21/2024) Resolved Problems Problem Noted Date Diagnosed Date [...] stent and embolization 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/10 [facility] [place] 08/09:1 month s/p reintervention for his R [...] as of this encounter (statuses as of 03/21/2024) Immunizations Name Administration Dates Next Due COVID-19 mRNA, LNP-s, No Pre serve, 2-Dose Series (LendAmend) 04/24/2021,09/06/2020,08/09/2020 COVID-19, MRNA-LNP, 24-25, P R, 30MCG/0.3ML, IM, 12YRS AND ABOVE ([email or web address] 03/20/2024 Covid-19, Mrna, Lnp-s, Pf, B ivalent, 30 Mcg, IM, 12 yrs and above (LendAmend) 05/19/2022 H1N1 2009 Influenza, IM 05/28/2009 Influenza, [...] No 04/26/2023 Does the household have a [facility] source [facility] income? (Household - for [...] Telephone Encounter - Janice Robles LPN - 03/21/2024 2:24 PM EDT Call placed to patient - spoke to EC daughter Lore and relayed information from Dr. Scales. Daughter acknowledged understanding and will relay information to patient. No questions at this time. Per daughter, pt is currently at appt to have CT done. * Telephone Encounter - Janice Robles LPN - 03/21/2024 2:22 PM EDT ----- Message from Javon Scales DO sent at 03/20/2024 7:59 PM EDT ----- Severe Lumbar DDD present on x-rays. No fractures. CT as ordered of spine. documented in this encounter Plan of Treatment Upcoming Encounters Date Type Department Care Team (Latest Contact Info) Description 03/21/2024 4:00 PM EDT Imaging Radiology [address] [place] [address] Chronic left-sided low back pain without sciatica; Scoliosis of thoracolumbar region due to degenerative disease of spine in adult 03/21/2024 4:30 PM EDT Imaging Radiology [address] 132 [place] [address] Chronic midline thoracic back pain; Scoliosis of thoracolumbar region due to degenerative disease of spine in adult 03/29/2024 2:20 PM EDT Office Visit Family [address] [place] [address] Javon Scales, DO [address] [place] [address] 03/30/2024 11:00 AM EDT Office Visit Urology, [place] [address] [place] [address] Jose Lisa MD [facility] [place] [address] 04/06/2024 11:00 AM EDT Office Visit Gastroenterology, [facility] 132 [place] [address] Makayla Moody CRNP 132 [place] [address] 04/21/2024 2:20 PM EST Office Visit Family [address] [place] [address] Javon Scales, [address] [place] [address] 05/03/2024 1:45 PM EST Office Visit Urology, [place] [address] [place], [place] [phone] Baudilio Rosas MD [address] [place], [place] [address] 07/28/2024 1:00 PM EST Procedure Only Urology, [place] [address] [place] [address] Jose Lisa MD [address] [place] [address] 08/08/2024 2:45 PM EST Office Visit Hematology/Oncology [facility] 200 [facility] [place] [phone] Martir Lazar MD 200 [place] [address] 09/05/2024 4:00 PM EDT Office Visit Cardiology, [facility] 132 [place] [address] Sridhar Fay MD 132 [place] [address] 09/26/2024 11:00 AM EDT Nurse Only Family Practice [address] [place] [address] [address] [place] [phone] Kelli Steele RN [address] [place] [address] Health Maintenance Due Date Last Done Comments CKD PHOS USE SMARTSET 96911 07/27/202407/09, 02/25/2022, 01/29/2021 Adult Wellness Visit 09/20/2024 09/21/2023, 01/30/2022, 01/29/2021 Depression Screening 09/20/2024 09/21/2023 Albumin/Creatinine Ratio 03/02/2025 024, 04/26/2023, 07/13/2022, Additional history exists CKD HGB USE SMARTSET 35202 03/11/202503/11, 03/11/2024, 03/10/2024, Additional history exists DTap/Tdap [...] this encounter Medical Devices Implanted Type Area [place]in[place] Operator Device Identifier Shelf Expiration Date Model / Serial / Lot Bifurcated Endograft Implanted:Qty: 1 on 03/29/2017 by Lisa Emerson MD at [place] [facility] [place]/A: Aorta ENDOLOGIX 01/13/2018 [id number]/11 6-40 / [id number] / Proximal Endograft Implanted:Qty: 1 on 03/29/2017 by Lisa Emerson MD at [place] [facility] [place] N/A: Aorta ENDOLOGIX 01/16/2020 A25-25/C75- O20V / [id number] / documented as of this encounter Advance Directives * Full Code (Latest Code Status on File) Date Activated Date Inactivated Comments 03/29/2017 2:46 PM 03/31/2017 3:33 PM This order reflects the patients wishes and were consensually agreed upon. Care Teams Is/It Project Manager Relationship Specialty Start Date End Date Javon Scales DO [address] [place] [address] PCP - General Internal Medicine 11/19/23 documented as of this encounter
--- OUTSIDE RECORDS SUMMARY | 2024-05-15 18:59 | External Medical Summary ---
Author Name Unknown Address Unknown Organization [facility] [address] [place] [address] Laboratory Report Ordering Provider Test Date Status АННА KAMARA 03/11/2024 08:20:57 Final Observation Date Value Abnormality Reference (Units ) Status Nucleated erythrocytes/100 leukocytes [Ratio] in Blood by Automated count 03/11/2024 08:20:57 Final Performing Location [facility] [address] [place] [id number]
--- OUTSIDE RECORDS SUMMARY | 2024-05-15 18:59 | External Medical Summary | Summary of Care ---
Author Name Unknown Organization [facility] Address [address] [place] [address] Phone [phone] Care Team Providers Care Pot Puncher Name Role Phone Mitchclara Javon Barksdale DO Primary Care Provider [phone] Reason for Visit * Reason Comments Outpatient Testing Encounter Details Date Type Department Care Team (Late st Contact Info) Description 03/11/2024 8:40 AM EDT Laboratory Laboratory, [facility] 132 [place] [phone] [facility] [address] [place] [address] Thrombocytopenia (HCC) Allergies Active Allergy Reactions Criticality Noted Date Comments Ciprofloxacin 09/27/2018 Stomach upset Finasteride Other (Please comment) 09/21/2023 Enlarged breast tissue Tamsulosin Hcl 01/14/2010 collapse Levofloxacin Other (Please comment) 03/05/2017 Hx of achilles tendon tear Atorvastatin Abdominal pain 12/23/2015 Lisinopril 03/11/2007 Caused pt to have blurred vision and become very flushed Simvastatin Abdominal pain 12/23/2015 documented as of this encounter (statuses as of 03/11/2024) Medications Medication Sig Dispensed Refills Start Date [...] TWICE DAILY 135 g 5 10/19/2019 Active Triamcinolone Acetonide 0.1 % External Lotion (Aristocort) Apply to affected area at groin twice daily as needed 60 mL 2 02/27/2021 Active PreserVision AREDS 2+Multi Vit Oral Capsule Take by mouth 1 Capsule daily . Active Saline Nasal [place] 0.65 % Nasal Solution ([place])Indications: Epistaxis Administer into nostril 2 Sprays in the morning AND 2 Sprays before bedtime. 30 mL 12 07/29/2021 Active Nitroglycerin 0.4 MG Sublingual Tablet Sublingual (Nitrostat)Indicati ons:Atherosclerosis of [place] coronary artery of [place] heart without angina pectoris one tab under [...] (Tenormin)Indicatio ns:HTN, goal below 140/90,Atherosclero sis of [place] coronary artery of [place] heart without angina pectoris Take 1 tablet [...] for Pain, Severe. 90 Tablet 03/03/2024 Active dexAMETHasone 4 MG Oral Tablet (Decadron)Indicatio ns:Thrombocytopenia (HCC) Take 10 Tablets by mouth daily with breakfast for 4 days. 40 Tablet 03/08/2024 03/12/2024 Active Pantoprazole Sodium 40 MG Oral Tablet Delayed Release (Protonix)Indicatio ns:Thrombocytopenia (HCC) Take 1 Tablet by mouth in the morning for 4 days. 4 Tablet 03/08/2024 03/12/2024 Active documented as of this encounter (statuses as of 03/11/2024) Active Problems Problem Noted Date Diagnosed Date [...] CORONARY ATHEROSCLEROSIS OF UNSPECIFIED TYPE OF VESSEL, MCGRATH OR GRAFT History of bladder cancer documented as of this encounter (statuses as of 03/11/2024) Resolved Problems Problem Noted Date Diagnosed Date [...] and embolization 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/10 [facility] [place]1 month s/p reintervention for his R [...] as of this encounter (statuses as of 03/11/2024) Immunizations Name Administration Dates Next Due COVID-19 mRNA, LNP-s, No Pre serve, 2-Dose Series (Smallable) 04/24/2021,09/06/2020,08/09/2020 Covid-19, Mrna, Lnp-s, Pf, B ivalent, 30 Mcg, IM, 12 yrs and above (Smallable) 05/19/2022 H1N1 2009 Influenza, IM 05/28/2009 Influenza, [...] No 03/29/2017 documented as of this encounter Plan of Treatment Upcoming Encounters Date Type Department Care Team (Latest Contact Info) Description 03/13/2024 9:04 AM EDT Hospital Encounter [place] [facility] OPERATING ROOM [facility] [address] [place] [phone] Jose Lisa MD [address] [place] [address] 03/13/2024 9:04 AM EDT - 03/13/2024 10:32 AM EDT Surgery OR [facility], [facility]PER[facility] ROOM [facility] [address] [place] [phone] Jose Lisa MD [address] [place], [place] [phone] CYSTOURETHROSCOPY WITH FULGURATION SMALL BLADDER TUMOR 04/06/2024 11:00 AM EDT Office Visit Gastroenterology, [facility] [address] [place] [address] Makayla Moody CRNP [address] [place] [address] 04/21/2024 2:20 PM EST Office Visit Family Practice [address] [place] [address] 293 [place] [phone] Javon Scales DO [address] [place] [address] 05/03/2024 1:45 PM EST Office Visit Urology, [place] [address] [place] [address] Baudilio Rosas MD [address] [place] [address] 07/28/2024 1:00 PM EST Procedure Only Urology, [place] [address] [place], [place] [phone] Jose Lias MD [address] [place], [place] [address] 08/08/2024 2:45 PM EST Office Visit Hematology/Oncolog y [facility] [address] [place] [address] Martir Lazar MD [address] [place] [address] 09/05/2024 4:00 PM EDT Office Visit Cardiology, [facility] 132 [place] [address] Sridhar Fay MD 132 [place] [address] 09/26/2024 11:00 AM EDT Nurse Only Family Practice [address] [place] [address] 293 [place] [phone] Kelli Steele RN [address] [place] [address] Pending Results Name Type Priority Associated Diagnoses Date /Time CBC WITH WBC DIFFERENTIAL Lab Routine Thrombocytopenia (HCC) 03/11/2024 8:20 AM EDT CBC Lab Routine Thrombocytopenia (HCC) 03/11/2024 8:20 AM EDT DIFFERENTIAL, AUTOMATED Lab Routine Thrombocytopenia (HCC) 03/11/2024 8:20 AM EDT Scheduled Procedures Name Priority Associated Diagnoses Date/Ti me CYSTOURETHROSCOPY WITH FULGURATION SMALL BLADDER TUMOR Malignant neoplasm of overlapping sites of bladder (HCC) 03/13/2024 9:04 AM EDT Health Maintenance Due Date Last Done Comments COVID-19 Vaccine ( season) 2024 05/19/2022, 04/24/2021, 09/06/2020, Additional history exists CKD PHOS USE SMARTSET 20680 07/27/2024 02/, 02/25/2022, 01/29/2021 Adult Wellness Visit 09/20/2024 09/21/2023, 01/30/2022, 01/29/2021 Depression Screening 09/20/2024 09/21/2023 Albumin/Creatinine Ratio 03/02/2025 024, 04/26/2023, 07/13/2022, Additional history exists CKD HGB USE SMARTSET 45228 03/10/202503/10, 03/10/2024, 03/02/2024, Additional history exists DTap/Tdap Vaccines (3 - [...] this encounter Medical Devices Implanted Type Area Lining Maker Device Identifier Shelf Expiration Date Model / Serial / Lot Bifurcated Endograft Implanted:Qty: 1 on 03/29/2017 by Lisa Emerson MD at [place] [facility] [place]/A: Aorta ENDOLOGIX 01/13/2018 [id number]/11 6-40 / [id number] / Proximal Endograft Implanted:Qty: 1 on 03/29/2017 by Lisa Emerson MD at [place] [facility] N/A: Aorta ENDOLOGIX 01/16/2020 A25-25/C75- O20V / [id number] / documented as of this encounter Visit Diagnoses Diagnosis Malignant neoplasm of overlapping sites of bladder (HCC)- Primary Malignant neoplasm of other specified sites of bladder Thrombocytopenia (HCC) Thrombocytopenia, unspecified Malignant neoplasm of overlapping sites of bladder (HCC) Malignant neoplasm of other specified sites of bladder documented in this encounter Advance Directives * Full Code (Latest Code Status on File) Date Activated Date Inactivated Comments 03/29/2017 2:46 PM 03/31/2017 3:33 PM This order reflects the patients wishes and were consensually agreed upon. Care Teams Pot Puncher Relationship Specialty Start Date End Date Javon Scales DO [address] [place] [address] PCP - General Internal Medicine 11/19/23 documented as of this encounter
--- OUTSIDE RECORDS SUMMARY | 2024-05-15 18:59 | External Medical Summary | Summary of Care ---
Author Name Unknown Organization [facility] Address [address] [place] [address] Phone [phone] Care Team Providers Care Pinsetter Mechanic Helper Name Role Phone Javon Scales DO Primary Care Provider [phone] Reason for Visit * Reason Onset Date Comments Test Results Lab 03/10/2024 Encounter Details Date Type Department Care Team (Late st Contact Info) Description 03/10/2024 Telephone Family Practice [facility] [address] [place] [phone] Javon Scales DO [address] [place] [address] Test Results Lab Allergies Active Allergy Reactions Criticality Noted Date Comments Ciprofloxacin 09/27/2018 Stomach upset Finasteride Other (Please comment) 09/21/2023 Enlarged breast tissue Tamsulosin Hcl 01/14/2010 collapse Levofloxacin Other (Please comment) 03/05/2017 Hx of achilles tendon tear Atorvastatin Abdominal pain 12/23/2015 Lisinopril 03/11/2007 Caused pt to have blurred vision and become very flushed Simvastatin Abdominal pain 12/23/2015 documented as of this encounter (statuses as of 03/10/2024) Medications Medication Sig Dispensed Refills Start Date [...] 1 Capsule daily . Active Saline Nasal [place] 0.65 % Nasal Solution ([place])Indications: Epistaxis Administer into nostril 2 Sprays in the morning AND 2 Sprays before bedtime. 30 mL 12 07/29/2021 Active Nitroglycerin 0.4 MG Sublingual Tablet Sublingual (Nitrostat)Indicati ons:Atherosclerosis of [place] coronary artery of [place] heart without angina pectoris one tab under [...] (Tenormin)Indicatio ns:HTN, goal below 140/90,Atherosclero sis of [place] coronary artery of [place] heart without angina pectoris Take 1 tablet [...] as of this encounter (statuses as of 03/10/2024) Active Problems Problem Noted Date Diagnosed Date [...] CORONARY ATHEROSCLEROSIS OF UNSPECIFIED TYPE OF VESSEL, MESA GRANDE OR GRAFT History of bladder cancer documented as of this encounter (statuses as of 03/10/2024) Resolved Problems Problem Noted Date Diagnosed Date [...] and embolization 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/10 [facility] 08/09:1 month s/p reintervention for his R [...] as of this encounter (statuses as of 03/10/2024) Immunizations Name Administration Dates Next Due COVID-19 mRNA, LNP-s, No Pre serve, 2-Dose Series ([place]) 04/24/2021,09/06/2020,08/09/2020 Covid-19, Mrna, Lnp-s, Pf, B ivalent, 30 Mcg, IM, 12 yrs and above ([place]) 05/19/2022 H1N1 2009 Influenza, IM 05/28/2009 Influenza, [...] as of this encounter Miscellaneous Notes * Addendum Note - Kelli Turner RN - 03/10/2024 4:06 PM EDTAddended by: KELLI TURNER on: 03/10/2024 04:06 PM Modules accepted: Orders * Telephone Encounter - Kelli Turner RN - 03/10/2024 4:06 PM EDT Order placed * Telephone Encounter - Kelli Turner RN - 03/10/2024 3:47 PM EDT Call to pt-notified of message below. Told him he needs to redo his CBC tomorrow at [facility]-verbalized understanding. * Telephone Encounter - Kelli Turner RN - 03/10/2024 3:42 PM EDT ----- Message from Javon Scales DO sent at 03/10/2024 3:36 PM EDT ----- No acute pathology on CXR Lump is from prominent lower ribs. No fracture or acute pathology on imaging. CBC was to be done tomorrow. Not today. Repeat CBC tomorrow documented in this encounter Plan of Treatment Upcoming Encounters Date Type Department Care Team (Latest Contact Info) Description 03/13/2024 9:04 AM EDT Hospital Encounter OR [facility], OPERATING ROOM [facility], [facility] [address] [place] [address] Jose Lisa MD [address] [place] [address] 03/13/2024 9:04 AM EDT - 03/13/2024 10:32 AM EDT Surgery OR [facility], OPERATING ROOM [facility], [facility] [address] [place] [address] Jose Lisa MD [address] [place], [place] [id number] CYSTOURETHROSCOPY WITH FULGURATION SMALL BLADDER TUMOR 04/06/2024 11:00 AM EDT Office Visit Gastroenterology, [facility] [address] [place] [address] Makayla Moody CRNP [address] [place] [address] 04/21/2024 2:20 PM EST Office Visit Family Practice [address] [place] [address] [address] [place] [address] Javon Scales, [address] [place] [address] 05/03/2024 1:45 PM EST Office Visit Urology, [place] [address] [place], [place] [phone] Baudilio Rosas MD [address] [place] [address] 07/28/2024 1:00 PM EST Procedure Only Urology, [place] [address] [place] [facility] [place] [address] Jose Lisa MD [address] [place] [address] 08/08/2024 2:45 PM EST Office Visit Hematology/Oncolog y [facility] [address] [facility] [place] [phone] Martir Lazar MD 200 [facility], [place] [phone] 09/05/2024 4:00 PM EDT Office Visit Cardiology, [facility] [address] [place] [address] Srdihar Fay MD [address] [place] [address] 09/26/2024 11:00 AM EDT Nurse Only Family Practice [address] [place] [address] [address] [place] [address] Kelli Turner RN [address] [place] [address] Scheduled Orders Name Type Priority Associated Diagnoses Orde r Schedule CBC WITH WBC DIFFERENTIAL Lab Routine Thrombocytopenia (HCC) Expected: 03/11/2024 (Approximate), Expires: 03/10/2025 Scheduled Procedures Name Priority Associated Diagnoses Date/Ti me CYSTOURETHROSCOPY WITH FULGURATION SMALL BLADDER TUMOR Malignant neoplasm of overlapping sites of bladder (HCC) 03/13/2024 9:04 AM EDT Health Maintenance Due Date Last Done Comments COVID-19 Vaccine ( season) 2024 05/19/2022, 04/24/2021, 09/06/2020, Additional history exists CKD PHOS USE SMARTSET 47970 07/27/202407/09, 02/25/2022, 01/29/2021 Adult Wellness Visit 09/20/2024 09/21/2023, 01/30/2022, 01/29/2021 Depression Screening 09/20/2024 09/21/2023 Albumin/Creatinine Ratio 03/02/2025 024, 04/26/2023, 07/13/2022, Additional history exists CKD HGB USE SMARTSET 93276 03/10/202503/10, 03/10/2024, 03/02/2024, Additional history exists DTap/Tdap [...] this encounter Medical Devices Implanted Type Area Level Vial Inspector And Tester Device Identifier Shelf Expiration Date Model / Serial / Lot Bifurcated Endograft Implanted:Qty: 1 on 03/29/2017 by Lisa Emerson MD at OR [facility] N/A: Aorta ENDOLOGIX 01/13/2018 [id number] 6-40 / [id number] / Proximal Endograft Implanted:Qty: 1 on 03/29/2017 by Lisa Emerson MD at OR [facility] N/A: Aorta ENDOLOGIX 01/16/2020 A25-25/C75- [id number] / [id number] / documented as of this encounter Visit Diagnoses Diagnosis Malignant neoplasm of overlapping sites of bladder (HCC)- Primary Malignant neoplasm of other specified sites of bladder Thrombocytopenia (HCC)- Primary Thrombocytopenia, unspecified Malignant neoplasm of overlapping sites of bladder (HCC) Malignant neoplasm of other specified sites of bladder documented in this encounter Advance Directives * Full Code (Latest Code Status on File) Date Activated Date Inactivated Comments 03/29/2017 2:46 PM 03/31/2017 3:33 PM This order reflects the patients wishes and were consensually agreed upon. Care Teams Pinsetter Mechanic Helper Relationship Specialty Start Date End Date Javon Scales DO [address] [place] [address] PCP - General Internal Medicine 11/19/23 documented as of this encounter
--- OUTSIDE RECORDS SUMMARY | 2024-05-15 18:59 | External Medical Summary | Summary of Care ---
Author Name Unknown Organization [facility] Address [address] [place] [address] Phone [phone] Care Team Providers Care Screen Roller Name Role Phone Javon Scales DO Primary Care Provider [phone] Reason for Visit * Reason Onset Date Comments Test Results Lab 03/10/2024 Encounter Details Date Type Department Care Team (Late st Contact Info) Description 03/10/2024 Telephone Family Practice 65 [facility] [address] [place] [phone] Javon Scales DO [address] [place] [address] Test Results Lab Allergies Active [...] 1 Capsule daily . Active Saline Nasal [place] 0.65 % Nasal Solution ([place])Indications: Epistaxis Administer into nostril 2 Sprays in the morning AND 2 Sprays before bedtime. 30 mL 12 07/29/2021 Active Nitroglycerin 0.4 MG Sublingual Tablet Sublingual (Nitrostat)Indicati ons:Atherosclerosis of [place] coronary artery of [place] heart without angina pectoris one tab under [...] (Tenormin)Indicatio ns:HTN, goal below 140/90,Atherosclero sis of [place] coronary artery of [place] heart without angina pectoris Take 1 tablet [...] CORONARY ATHEROSCLEROSIS OF UNSPECIFIED TYPE OF VESSEL, [place] OR GRAFT History of bladder cancer documented [...] stent and embolization 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/10 [facility] 08/09:1 month s/p reintervention for his R [...] mRNA, LNP-s, No Pre serve, 2-Dose Series ([employer]) 04/24/2021,09/06/2020,08/09/2020 Covid-19, Mrna, Lnp-s, Pf, B ivalent, 30 Mcg, IM, 12 yrs and above ([employer]) 05/19/2022 H1N1 2009 Influenza, IM 05/28/2009 Influenza, [...] No 04/26/2023 Does the household have a [facility] source of income? (Household - for ages [...] Miscellaneous Notes * Telephone Encounter - Kelli Steele RN - 03/10/2024 3:47 PM EDT Call to pt-notified of message below. Told him he needs to redo his CBC tomorrow at [facility]-verbalized understanding. * Telephone Encounter - Kelli Steele RN - 03/10/2024 3:42 PM EDT ----- [...] 03/13/2024 9:04 AM EDT Hospital Encounter OR [facility], OPERATING ROOM [facility] [address] [place] [phone] Jose Lisa MD [address] [place], [place] [phone] 03/13/2024 9:04 AM EDT - 03/13/2024 10:32 AM EDT Surgery OR [facility], OPERATING ROOM [facility], [facility] [address] [place] [address] Jose Lisa MD [address] [place] [address] CYSTOURETHROSCOPY WITH FULGURATION SMALL BLADDER TUMOR 04/06/2024 11:00 AM EDT Office Visit Gastroenterology, [facility] [address] [place] [address] Makayla Moody CRNP [address] [facility] [place] [address] 04/21/2024 2:20 PM EST Office Visit Family Practice [address] [place] [address] [address] [place] [address] Javon Scales DO [address] [place] [address] 05/03/2024 1:45 PM EST Office Visit Urology, [place] [address] [place] [address] Baudilio Rosas MD [address] [place] [address] 07/28/2024 1:00 PM EST Procedure Only Urology, [place] [address] [place] [address] Jose Lisa MD [address] [place] [address] 08/08/2024 2:45 PM EST Office Visit Hematology/Oncolog y [facility] [address] [place] [address] Martir Lazar MD [address] [place] [address] 09/05/2024 4:00 PM EDT Office Visit Cardiology, [facility] [address] [place] [address] Sridhar Fay MD [address] [place] [address] 09/26/2024 11:00 AM EDT Nurse Only Family Practice [address] [place] [address], [place] [address] [facility] [place] [address] Kelli Steele, ANIA [address] [place] [address] Scheduled Procedures Name Priority Associated Diagnoses Date/Ti me CYSTOURETHROSCOPY WITH FULGURATION SMALL BLADDER TUMOR Malignant neoplasm of overlapping sites of bladder (HCC) 03/13/2024 9:04 AM EDT Health Maintenance Due Date Last Done Comments COVID-19 Vaccine ( season) 2024 05/19/2022, 04/24/2021, 09/06/2020, Additional history exists CKD PHOS USE SMARTSET 76547 07/27/202407/09, 02/25/2022, 01/29/2021 Adult Wellness Visit 09/20/2024 09/21/2023, 01/30/2022, 01/29/2021 Depression Screening 09/20/2024 09/21/2023 Albumin/Creatinine Ratio 03/02/2025 024, 04/26/2023, 07/13/2022, Additional history exists CKD HGB USE SMARTSET 11497 03/10/202503/10, 03/10/2024, 03/02/2024, Additional history exists DTap/Tdap [...] this encounter Medical Devices Implanted Type Area Electronic Service Technician Device Identifier Shelf Expiration Date Model / Serial / Lot Bifurcated Endograft Implanted:Qty: 1 on 03/29/2017 by Lisa Emerson MD at OR [facility] N/A: Aorta ENDOLOGIX 01/13/2018 [id number] 6-40 / [id number] / Proximal Endograft Implanted:Qty: 1 on 03/29/2017 by Lisa Emerson MD at OR [facility] N/A: Aorta ENDOLOGIX 01/16/2020 A25-25/C75- [id number] / [id number] / documented as of this encounter Advance Directives * Full Code (Latest Code Status on File) Date Activated Date Inactivated Comments 03/29/2017 2:46 PM 03/31/2017 3:33 PM This order reflects the patients wishes and were consensually agreed upon. Care Teams Screen Roller Relationship Specialty Start Date End Date Javon Scales DO [address] [place] [address] PCP - General Internal Medicine 11/19/23 documented as of this encounter
--- OUTSIDE RECORDS SUMMARY | 2024-05-15 18:59 | External Medical Summary ---
Author Name Unknown Address Unknown Organization [facility] [address] [place] [address] Laboratory Report Ordering Provider Test Date Status АННА KAMARA 03/11/2024 08:20:57 Final Observation Date Value Abnormality Reference (Units ) Status WBC, Total 03/11/2024 08:20:57 5.30 4.00-10.8 0 (K/uL) Final RBC 03/11/2024 08:20:57 3.96 4.50-5.25 (M/uL) Final Hemoglobin 03/11/2024 08:20:57 12.6 Below low normal 14 .0-16.8 (g/dL) Final HCT 03/11/2024 08:20:57 36.9 Below low normal 40. 0-48.4 (%) Final MCV 03/11/2024 08:20:57 93.2 82.0-99.5 (fL) Final MCH 03/11/2024 08:20:57 31.8 27.0-34.0 (pg) Final MCHC 03/11/2024 08:20:57 34.1 32.0-36.0 (g/dL) Final RDW 03/11/2024 08:20:57 15.3 11.5-15.5 (%) Final Platelets 03/11/2024 08:20:57 69 Below low normal 140 -400 (K/uL) Final MPV 03/11/2024 08:20:57 13.4 6.6-11.1 ( fL) Final Performing Location [facility] [place] [id number]
--- OUTSIDE RECORDS SUMMARY | 2024-05-15 18:59 | External Medical Summary ---
Author Name Unknown Address Unknown Organization [facility] [place] [facility] [address] [place] [id number] Laboratory Report Ordering Provider Test Date Status АННА KAMARA 03/11/2024 08:20:57 Final Observation Date Value Abnormality Reference (Units ) Status SYNC LEUKOCYTES IN BLOOD BY AUTOMATED COUNT 03/11/2024 08:20:57 5.30 4.00-10.80 (K/uL) Final Segs 03/11/2024 08:20:57 69.6 40.0-75.0 (%) Final Lymphs % 03/11/2024 08:20:57 15.5 Below low normal 18.0-42.0 (%) Final Monos 03/11/2024 08:20:57 14.7 Above high normal 1.0-11.0 (%) Final Eosinophils 03/11/2024 08:20:57 0.0 0.0-6.0 (%) Final Basos 03/11/2024 08:20:57 0.2 0.0-2.0 (%) Final Absolute Segs 03/11/2024 08:20:57 3.69 1.80-7.70 (K/uL) Final Lymphs, absolute 03/11/2024 08:20:57 0.82 Below low normal 1.00-4.80 (K/ul) Final Monos, Abs 03/11/2024 08:20:57 0.78 0.00-1.10 (K/uL) Final Eos, Abs 03/11/2024 08:20:57 0.00 0.00-0.70 (K/uL) Final Basos, Abs 03/11/2024 08:20:57 0.01 0.00-0.20 (K/uL) Final Performing Location [facility] [place] [address]
--- OUTSIDE RECORDS SUMMARY | 2024-05-15 18:59 | External Medical Summary | Summary of Care ---
Author Name Unknown Organization [facility] Address [address] [place] [address] Phone [phone] Care Team Providers Care Material Expeditor Name Role Phone Javon Scales Primary Care Provider [phone] Reason for Visit * Reason Onset Date Comments Test Results 02/28/2024 Encounter Details Date Type Department Care Team (Late st Contact Info) Description 02/28/2024 Telephone Urology, [place] [address] [place] [address] Jose Lisa MD [address] [place] [address] Test Results Allergies Active Allergy Reactions Criticality Noted Date [...] as of this encounter (statuses as of 03/13/2024) Medications Medication Sig Dispensed Refills Start Date End Date Status CO Q 10 10 MG PO CAPS Suspended VITAMIN B-6 100 MG PO TABS 200mg three times per week 0 8 Suspended OMEGA 3 1000 MG PO CAPS 1200 mg daily Suspended TUMS 500 MG PO CHEW as needed Suspended VITAMIN D3 1000 UNITS PO CAPS Take by mouth daily. 4 Suspended MIRALAX PO POWDIndications: Other constipation Dissolve one heaping tablespoon in 8 ounces of water or juice - one dose per day for constipation 1 Bottle 2 4 03/02/20 24 Discontinued fluticasone (FLONASE) 50 MCG/ACT nasal sprayIndications :Bronchitis Administer 2 Sprays into each nostril daily. 1 Bottle 5 6 Suspended Additional Information Docusate Sodium 100 MG Oral Capsule One pill by mouth twice a day as needed 60 Cap 11 8 Suspended Multiple Vitamins-Mineral s (MULTIVITAMIN ADULT EXTRA C) CHEW 1 Tablet in the morning. 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 1 Tab 9 Suspended Additional Information Patient not taking.Informant: Patient, Reported on 03/13/2024 clotrimazole-bet amethasone (LOTRISONE) 1-0.05 % cream APPLY TOPICALLY TO RIGHT LEG AREA TWICE DAILY 135 g 5 0 Suspended Additional Information Patient not taking.Informant: Patient, Reported on 03/13/2024 Triamcinolone Acetonide 0.1 % External Lotion (Aristocort) Apply to affected area at groin twice daily as needed 60 mL 2 1 Suspended Additional Information Patient not taking.Informant: Patient, Reported on 03/13/2024 PreserVision AREDS 2+Multi Vit Oral Capsule Take by mouth 1 Capsule daily . Suspended Saline Nasal Post 0.65 % Nasal Solution (Assumption)Indicatio ns:Epistaxis Administer into nostril 2 Sprays in the morning AND 2 Sprays before bedtime. 30 mL 12 2 Suspended Additional Information Nitroglycerin 0.4 MG Sublingual Tablet Sublingual (Nitrostat)Indic ations:Atheroscl erosis of federated indians of gr[place] coronary artery of federated [place] heart without angina pectoris one tab under tongue as needed for chest pain maximum 3 doses 25 Tablet 5 2 Suspended Additional Information Patient not taking.Informant: Patient, Reported on 03/13/2024 Pravastatin Sodium 20 MG Oral Tablet (Pravachol)Indic ations:Dyslipide júnior, goal LDL below 100 TAKE 1 TABLET BY MOUTH ONCE DAILY AT BEDTIME 100 Tablet 3 3 Suspended Additional Information Ketoconazole 2 % External Shampoo (Nizoral)Indicat ions:Scalp pruritus USE SHAMPOO AT LEAST 3 TIMES PER WEEK, LATHER, WAIT 5 MINUTES THEN RINSE 120 mL 3 Suspended Additional Information Fluocinonide 0.05 % External SolutionIndicati ons:Scalp pruritus APPLY SOLUTION TOPICALLY TO AFFECTED AREA OF SCALP NIGHTLY NEEDED FOR ITCHING 60 mL 3 Suspended Additional Information Aspirin 81 MG Oral Tablet Delayed Release Take 1 Tablet by mouth in the morning. 4 Suspended Silodosin 4 MG Oral Capsule (Rapaflo) Take 1 Tablet by mouth in the morning. 90 Capsule 3 4 Suspended Additional Information Amoxicillin 500 MG Oral Capsule (Amoxil) TAKE FOUR CAPSULES BY MOUTH ONE HOUR BEFORE APPOINTMENT 4 Capsule 4 Suspended Additional Information predniSONE 20 MG Oral Tablet (Deltasone)Indic ations:Neck pain Take 1 Tablet by mouth in the morning and 1 Tablet before bedtime. Do all this for 5 days. 10 Tablet 4 03/02/20 24 Discontinued amLODIPine Besylate 2.5 MG Oral Tablet (Norvasc)Indicat ions:HTN, goal below 140/90 TAKE 1 TABLET BY MOUTH IN THE MORNING 100 Tablet 1 4 Suspended Additional Information oxyCODONE HCl 5 MG Oral Tablet (Oxy IR)Indications:L umbar degenerative disc disease,Spinal stenosis of lumbar region at multiple levels,Chronic bilateral low back pain with bilateral sciatica Take 1 Tablet by mouth every 8 hours as needed for Pain, Severe. 90 Tablet 4 03/02/20 24 Discontinued(Re fill) Atenolol 25 MG Oral Tablet (Tenormin)Indica tions:HTN, goal below 140/90,Atheroscl erosis of fed[place] ind[place] coronary artery of [place] heart without angina pectoris Take 1 tablet by mouth twice daily 200 Tablet 1 4 Suspended Additional Information documented as of this encounter (statuses as of 03/13/2024) Active Problems Problem Noted Date Diagnosed Date [...] CORONARY ATHEROSCLEROSIS OF UNSPECIFIED TYPE OF VESSEL, [place] OR GRAFT History of bladder cancer documented as of this encounter (statuses as of 03/13/2024) Resolved Problems Problem Noted Date Diagnosed Date [...] and embolization 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/10 [facility] 08/09:1 month s/p reintervention for [...] as of this encounter (statuses as of 03/13/2024) Immunizations Name Administration Dates Next Due COVID-19 mRNA, LNP-s, No Pre serve, 2-Dose Series ([employer]) 04/24/2021,09/06/2020,08/09/2020 Covid-19, Mrna, Lnp-s, Pf, B ivalent, 30 Mcg, IM, 12 yrs and above ([employer]) 05/19/2022 H1N1 2009 Influenza, IM 05/28/2009 Influenza, Whole Virus 03/07/2007,03/18/2006 Pneumococcal Conjugate Vacc, 13 Valent (Prevnar) 10/16/2014 Pneumococcal Polysaccharide PPV23 (Pneumovax) 05/13/2006 Seasonal Influenza Vac., MDV , IM, 0.5 mL (Fluzone) 02/25/2015,02/22/2014,02/19/2013,02/22,03/03/2011,02/25/2010,02/07/2009 ,03/13/2008 Seasonal Influenza, PF, 6 M & above, [...] Telephone Encounter - Ashley Gudino RN - 02/28/2024 3:57 PM EDT Contacted patient to update him that the urine culture shows no bacteria. Asked him to call his PCPto schedule an appointment prior to surgery to make sure he is okay to have surgery with general anesthesia. Patient had a few questions because he did not realize he would be having anesthesia. Answered questions to his satisfaction. Patient is aware to hold aspirin five days prior to surgery. Patient states he does not want to have a resident performing his surgery. Will update Dr. Lisa. Patient will need PAT appointment to be done locally. Ashley Gudino RN, MSN 02/28/2024 4:01 PM documented in this encounter Plan of Treatment Upcoming Encounters Date Type Department Care Team (Late st Contact Info) Description 04/06/2024 11:00 AM EDT Office Visit Gastroenterology, [facility] [address] [place] [address] Makayla Moody CRNP [address] [place] [address] 04/21/2024 2:20 PM EST Office Visit Family [address] [place] [address] Javon Scales DO [address] [place] [address] 05/03/2024 1:45 PM EST Office Visit Urology, [place] [address] [place] [address] Baudilio Rosas MD [address] [place] [address] 07/28/2024 1:00 PM EST Procedure Only Urology, [place] [address], [place] [id number] Jose Lisa MD [address] [place] [address] 08/08/2024 2:45 PM EST Office Visit Hematology/Oncology [facility] [address] [place] [phone] Martir Lazar MD 200 [place] [address] 09/05/2024 4:00 PM EDT Office Visit Cardiology, [facility] 132 [place] [address] Sridhar Fay MD [address] [place] [address] 09/26/2024 11:00 AM EDT Nurse Only Family Practice [address] [place] [address] 293 [place] [phone] Kelli Steele, ANIA [address] [place] [address] Scheduled Procedures Name Priority Associated Diagnoses Date/Ti me CYSTOURETHROSCOPY WITH FULGURATION SMALL BLADDER TUMOR Malignant neoplasm of overlapping sites of bladder (HCC) 03/13/2024 10:32 AM EDT Health Maintenance Due Date Last Done Comments COVID-19 Vaccine ( season) 2024 05/19/2022, 04/24/2021, 09/06/2020, Additional history exists CKD PHOS USE SMARTSET 97022 07/27/202407/09, 02/25/2022, 01/29/2021 Adult Wellness Visit 09/20/2024 09/21/2023, 01/30/2022, 01/29/2021 Depression Screening 09/20/2024 09/21/2023 Albumin/Creatinine Ratio 03/02/2025 024, 04/26/2023, 07/13/2022, Additional history exists CKD HGB USE SMARTSET 21338 03/11/202503/11, 03/11/2024, 03/10/2024, Additional history exists DTap/Tdap [...] this encounter Medical Devices Implanted Type Area Warehousing Technician Device Identifier Shelf Expiration Date Model / Serial / Lot Bifurcated Endograft Implanted:Qty: 1 on 03/29/2017 by Lisa Emerson MD at OR [facility] N/A: Aorta ENDOLOGIX 01/13/2018 [id number]/11 6-40 / [id number] / Proximal Endograft Implanted:Qty: 1 on 03/29/2017 by Lisa Emerson MD at OR [facility] N/A: Aorta ENDOLOGIX 01/16/2020 A25-25/C75- [id number] / [id number] / documented as of this encounter Advance Directives * Full Code (Latest Code Status on File) Date Activated Date Inactivated Comments 03/29/2017 2:46 PM 03/31/2017 3:33 PM This order reflects the patients wishes and were consensually agreed upon. Care Teams Material Expeditor Relationship Specialty Start Date End Date Javon Scales DO [address] [place] [address] PCP - General Internal Medicine 11/19/23 documented as of this encounter
--- OUTSIDE RECORDS SUMMARY | 2024-05-15 19:00 | External Medical Summary | Summary of Care ---
Author Name Unknown Organization [facility] Address [address] [place] [address] Phone [phone] Care Team Providers Care Principal Examiner Name Role Phone Javon Scales DO Primary Care Provider [phone] Reason for Visit * Reason Onset Date Comments Medication Refill 03/01/2024 Encounter Details Date Type Department Care Team (Late st Contact Info) Description 03/01/2024 Refill Family Practice [address] [facility] [place] [address] [place] [phone] Javon Scales DO [address] [place] [address] Lumbar degenerative disc disease; Spinal stenosis of lumbar region at multiple levels; Chronic bilateral low back pain with bilateral sciatica Allergies Active Allergy Reactions Criticality Noted Date Comments Ciprofloxacin 09/27/2018 Stomach upset Finasteride Other (Please comment) 09/21/2023 Enlarged breast tissue Tamsulosin Hcl 01/14/2010 collapse Levofloxacin Other (Please comment) 03/05/2017 Hx of achilles tendon tear Atorvastatin Abdominal pain 12/23/2015 Lisinopril 03/11/2007 Caused pt to have blurred vision and become very flushed Simvastatin Abdominal pain 12/23/2015 documented as of this encounter (statuses as of 03/03/2024) Medications Medication Sig Dispensed Refills Start Date [...] 1 Capsule daily . Active Saline Nasal [place] 0.65 % Nasal Solution (Benld)Indications :Epistaxis Administer into nostril 2 Sprays in the morning AND 2 Sprays before bedtime. 30 mL 12 07/29/2021 Active Nitroglycerin 0.4 MG Sublingual Tablet Sublingual (Nitrostat)Indicat ions:Atheroscleros is of crow coronary artery of crow heart without angina pectoris one tab under [...] (Tenormin)Indicati ons:HTN, goal below 140/90,Atheroscler osis of crow coronary artery of crow heart without angina pectoris Take 1 tablet by mouth twice daily 200 Tablet 1 02/08/2024 Active oxyCODONE HCl 5 MG Oral Tablet (Oxy IR)Indications:Lum bar degenerative disc disease,Spinal stenosis of lumbar region at multiple levels,Chronic bilateral low back pain with bilateral sciatica Take 1 Tablet by mouth every 8 hours as needed for Pain, Severe. 90 Tablet 02/04/2024 4 Discontinue d(Refill) documented as of this encounter (statuses as of 03/03/2024) Active Problems Problem Noted Date Diagnosed Date [...] CORONARY ATHEROSCLEROSIS OF UNSPECIFIED TYPE OF VESSEL, [place] OR GRAFT History of bladder cancer documented as of this encounter (statuses as of 03/03/2024) Resolved Problems Problem Noted Date Diagnosed Date [...] stent and embolization 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/10 [facility] 08/09:1 month s/p reintervention for his R [...] as of this encounter (statuses as of 03/03/2024) Immunizations Name Administration Dates Next Due COVID-19 mRNA, LNP-s, No Pre serve, 2-Dose Series (IdleAir) 04/24/2021,09/06/2020,08/09/2020 Covid-19, Mrna, Lnp-s, Pf, B ivalent, 30 Mcg, IM, 12 yrs and above (Pfizer) 05/19/2022 H1N1 2009 Influenza, IM 05/28/2009 Influenza, Whole Virus 03/07/2007,03/18/2006 Pneumococcal Conjugate Vacc, 13 Valent (Prevnar) 10/16/2014 Pneumococcal Polysaccharide PPV23 (Pneumovax) 05/13/2006 Seasonal Influenza, PF, 6 M & above, IM , (FluLaval or Fluzone) 02/19/2021,02/09/2019,03/01/2018 Seasonal Influenza, Quadriva lent Hd (Fluzone Hd) 03/11/2023,02/23/2022 Seasonal Influenza, Quadriva lent Hd, 65+ Yrs 03/09/2020 Seasonal Influenza, Quadriva lent, No Preserve, IM 02/11/2017,02/17/2016 Seasonal Influenza, Trivalen t, (IIV3), with Preserv, (Fluzone) 02/25/2015,02/22/2014,02/19/2013,02/22,03/03/2011,02/25/2010,02/07/2009 ,03/13/2008 TD - Tetanus/Diptheria (ADULT) 08/11/2007 TDAP (age [...] encounter Miscellaneous Notes * Telephone Encounter - Javon Scales DO - 03/03/2024 8:01 AM EDT I have reviewed the patients controlled substance dispensing history in the Prescription Drug Monitoring Program in compliance with the [facility] regulations before prescribing a controlled substance. Last [...] results can be found in Results Review. Medication is due 03/03/2024(28 days) * Telephone Encounter - Jim Griffith [facility] - 03/02/2024 3:21 PM EDT Pending Prescriptions: Disp Refills oxyCODONE HCl 5 MG Oral Tablet (Oxy IR) 90 Tab*0 Sig: Take 1 Tablet by mouth every 8 hours as needed for Pain, Severe. * Telephone Encounter - Jim Griffith RP - 03/02/2024 3:11 PM EDT I have reviewed the patients controlled substance dispensing history in the Prescription Drug Monitoring Program in compliance with the [facility] regulations before prescribing a controlled substance. PDMP checked on 03/02/2024. Pending Prescriptions: Disp Refills oxyCODONE HCl 5 MG Oral Tablet (Oxy IR) 90 Tab*0 Sig: Take 1 Tablet by mouth every 8 hours as needed for Pain, Severe. Last Visit: 01/12/2024 (in office), 11/29/2023 (telemedicine) Next Visit: 04/21/2024 Date medication was last filled: 02/03 Date medication is due for refill: 03/05 Pharmacy: [facility] [address] [place] [address] Is this request for a controlled substance? [...] in Results Review. Please approve if appropriate. Thanks, Jim Griffith, Maria DoloresD Clinical Pharmacist [facility] [phone] 03/02/2024, 3:11 PM * Telephone Encounter - Kristina YbarraLeigh Ann - 03/01/2024 11:55 AM EDT Did you pend patient's preferred pharmacy and medication before forwarding?yes Pharmacy: [facility] [address] [place] [address] Pending Prescriptions: Disp Refills oxyCODONE HCl 5 MG Oral Tablet (Oxy IR) 90 Tab*0 Sig: Take 1 Tablet by mouth every 8 hours as needed for Pain, Severe. Last Visit: 01/12/2024 (in office), 11/29/2023 (telemedicine) Next Visit: 03/02/2024 If no future appointments scheduled, and last appointment is greater than a year ago, please schedule patient for a follow-up appointment Last date the medication was ordered: 02/04/24 Is this request for a controlled substance?Yes, What was the last refill date 02/04/24 w/ quantity 90 and dosage Take 1 Tablet by mouth every 8 hours as needed for Pain, Severe. and Urine Drug Screen was completed Urine [...] Lab Results Component Value Date/Time CREAT 0.9 11/29/2023 02:09 PM CREAT 1.2 06/04/2020 08:29 AM POTASSIUM 4.6 11/29/2023 02:09 PM POTASSIUM 4.4 06/04/2020 08:29 AM TSH 1.65 11/29/2023 02:09 PM TSH 1.59 04/11/2010 11:44 AM LDL 82 04/26/2023 02:03 PM LDL 78 01/23/2020 10:50 AM LDL NOT APPLICABLE 01/23/2020 10:50 AM ALT 14 11/29/2023 02:09 PM ALT 16 01/23/2020 10:50 AM documented in this encounter Plan of Treatment Upcoming Encounters Date Type Department Care Team (Latest Contact Info) Description 03/13/2024 9:04 AM EDT Hospital Encounter OR C, OPERATING ROOM [facility], [facility] [address] [place] [address] Jsoe Lisa MD [address] [place] [address] 03/13/2024 9:04 AM EDT - 03/13/2024 10:32 AM EDT Surgery OR [facility], OPERATING ROOM [facility] [address] [facility] [place] [address] [phone] Jose Lisa MD [address] [facility] [place] [address] CYSTOURETHROSCOPY WITH FULGURATION SMALL BLADDER TUMOR 04/06/2024 11:00 AM EDT Office Visit Gastroenterology, [facility] [address] [address] Makayla Moody CRNP [address] [place] [address] 04/21/2024 2:20 PM EST Office Visit Family Practice 65 [facility] [address] [place] [phone] Javon Scales DO [address] [place] [address] 05/03/2024 1:45 PM EST Office Visit Urology, [place] [address] [place] [address] Baudilio Rosas MD [address] [place] [address] 07/28/2024 1:00 PM EST Procedure Only Urology, [place] [address], [place] [phone] Jose Lisa MD [address] [place] [address] 08/08/2024 2:45 PM EST Office Visit Hematology/[facility] 200 [facility] [address] Martir Lazar MD 200 [facility] [address] 09/05/2024 4:00 PM EDT Office Visit Cardiology, [facility] [address] [facility] [place] [address] Sridhar Fay MD [address] [facility] [place] [address] 09/26/2024 11:00 AM EDT Nurse Only Ancillary 65 [facility] [address] [place] [address] College, Nurse Annual Wellness Visit [address] [address] Scheduled Procedures Name Priority Associated Diagnoses Date/Ti me CYSTOURETHROSCOPY WITH FULGURATION SMALL BLADDER TUMOR Malignant neoplasm of overlapping sites of bladder (HCC) 03/13/2024 9:04 AM EDT Health Maintenance Due Date Last Done Comments COVID-19 Vaccine ( season) 2024 05/19/2022, 04/24/2021, 09/06/2020, Additional history exists Postponed from 02/06/2024 (Patient Declined After Education) CKD PHOS USE SMARTSET 56511 07/27/2024 02/2 , 02/25/2022, 01/29/2021 Adult Wellness Visit 09/20/2024 09/21/2023, 01/30/2022, 01/29/2021 Depression Screening 09/20/2024 09/21/2023 Albumin/Creatinine Ratio 03/02/2025 024, 04/26/2023, 07/13/2022, Additional history exists CKD HGB USE SMARTSET 70014 03/02/202503/02, 03/02/2024, 11/29/2023, Additional history exists DTap/Tdap Vaccines (3 - Td or Tdap) 04/26/2033 04/26/2023, 02/19/2013, 08/11/2007 Pneumococcal Vaccine: 65+ Years Completed 10/16/2014, 05/13/2006, 06/07/1997 Zoster Vaccines Completed 08/16/2019, 05/07, 05/23/2007 Influenza Vaccine (FLU shot) Completed 03/02/2024, 03/11/2023, 02/23/2022, Additional history exists HPV (Gardasil) [...] encounter Medical Devices Implanted Type Area School Cafeteria Head Cook Device Identifier Shelf Expiration Date Model / Serial / Lot Bifurcated Endograft Implanted:Qty: 1 on 03/29/2017 by Lisa Emerson MD at OR [facility] N/A: Aorta ENDOLOGIX 01/13/2018 [id number]/11 6-40 / [id number] / Proximal Endograft Implanted:Qty: 1 on 03/29/2017 by Lisa Emerson MD at OR [facility] N/A: Aorta ENDOLOGIX 01/16/2020 A25-25/C75- [id number] / [id number] / documented as of this encounter Visit Diagnoses Diagnosis Malignant neoplasm of overlapping sites of bladder (HCC)- Primary Malignant neoplasm of other specified sites of bladder Lumbar degenerative disc disease Degeneration of lumbar or lumbosacral intervertebral disc Spinal stenosis of lumbar region at multiple levels Spinal stenosis, lumbar region, without neurogenic claudication Chronic bilateral low back pain with bilateral sciatica Malignant neoplasm of overlapping sites of bladder (HCC) Malignant neoplasm of other specified sites of bladder documented in this encounter Advance Directives * Full Code (Latest Code Status on File) Date Activated Date Inactivated Comments 03/29/2017 2:46 PM 03/31/2017 3:33 PM This order reflects the patients wishes and were consensually agreed upon. Care Teams Principal Examiner Relationship Specialty Start Date End Date Javon Scales DO [address] [place] [address] PCP - General Internal Medicine 11/19/23 documented as of this encounter
--- OUTSIDE RECORDS SUMMARY | 2024-05-15 19:00 | External Medical Summary | Summary of Care ---
Author Name Unknown Organization [facility] Address [address] [place] [address] Phone [phone] Care Team Providers Care Mold Stacker Name Role Phone Asad Scales DO Primary Care Provider Reason for Visit * Reason Onset Date Comments Medication Refill 03/02/2024 Encounter Details Date Type Department Care Team (Late st Contact Info) Description 03/02/2024 Refill Family Practice [address] [facility] [place] [address] [place] [phone] Asad Scales DO [address] [place] [address] Lumbar degenerative disc disease; Spinal stenosis of [...] 1 Capsule daily . Active Saline Nasal [place] 0.65 % Nasal Solution ([place])Indications :Epistaxis Administer into nostril 2 Sprays in the morning AND 2 Sprays before bedtime. 30 mL 12 07/29/2021 Active Nitroglycerin 0.4 MG Sublingual Tablet Sublingual (Nitrostat)Indicat ions:Atheroscleros is of [place] coronary artery of [place] heart without angina pectoris one tab under [...] (Tenormin)Indicati ons:HTN, goal below 140/90,Atheroscler osis of [place] coronary artery of [place] heart without angina pectoris Take 1 tablet [...] for Pain, Severe. 90 Tablet 03/03/2024 Active oxyCODONE HCl 5 MG Oral Tablet (Oxy IR)Indications:Lum bar degenerative disc disease,Spinal stenosis of lumbar region at multiple levels,Chronic bilateral low back pain with bilateral sciatica Take 1 Tablet by mouth every 8 hours as needed for Pain, Severe. 90 Tablet 02/04/2024 Discontinue d(Refill) documented as of this encounter [...] CORONARY ATHEROSCLEROSIS OF UNSPECIFIED TYPE OF VESSEL, [place] OR GRAFT History of bladder cancer [...] stent and embolization 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/10 [facility] 08/09:1 month s/p reintervention for his R [...] mRNA, LNP-s, No Pre serve, 2-Dose Series (iFLYER) 04/24/2021,09/06/2020,08/09/2020 Covid-19, Mrna, Lnp-s, Pf, B ivalent, 30 Mcg, IM, 12 yrs and above (iFLYER) 05/19/2022 H1N1 2009 Influenza, IM 05/28/2009 Influenza, Whole Virus 03/07/2007,03/18/2006 Pneumococcal Conjugate Vacc, 13 Valent (Prevnar) 10/16/2014 Pneumococcal Polysaccharide PPV23 (Pneumovax) 05/13/2006 Seasonal Influenza, High Dos e, Trivalent, PF, [...] Telephone Encounter - Asad Scales DO - 03/03/2024 8:01 AM EDTSigned Prescriptions: Disp Refills oxyCODONE HCl 5 MG Oral Tablet (Oxy IR) 90 Tab*0 Sig: Take 1 Tablet by mouth every 8 hours as needed for Pain, Severe.Authorizing Provider: ASAD SCALES * Telephone Encounter - Asad Scales DO - 03/03/2024 8:00 AM EDT I have reviewed the patients controlled substance dispensing history in the Prescription Drug Monitoring Program in compliance with the [facility] regulations before prescribing a controlled substance. [...] results can be found in Results Review. Oxycodone is due today. * Telephone Encounter - Kelli Mota LPN - 03/02/2024 4:34 PM EDTPending Prescriptions: Disp Refills oxyCODONE HCl 5 MG Oral Tablet (Oxy IR) 90 Tab*0 Sig: Take 1 Tablet by mouth every 8 hours as needed for Pain, Severe. * Telephone Encounter - Kelli Mota LPN - 03/02/2024 4:34 PM EDT Last refill was 02/03 * Telephone Encounter - Christa Paredes OSA - 03/02/2024 4:22 PM EDT Daughter Lore called . Cedric in a lot of pain. Mentioned wanting the oxy Pending Prescriptions: Disp Refills oxyCODONE HCl 5 MG Oral Tablet (Oxy IR) 90 Tab*0 Sig: Take 1 Tablet by mouth every 8 hours as needed for Pain, Severe. 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 CORONARY ATHEROSCLEROSIS OF UNSPECIFIED TYPE OF VESSEL, [place] OR GRAFT History of bladder cancer Macular [...] Component Value Date/Time CREATININE - [facility] 0.9 11/29/2023 02:09 PM CREATININE - [facility] 1.2 06/04/2020 08:29 AM CREATININE PET[place]A - [facility] 148 01/12/2023 03:48 PM CREATININE POCT - [facility] 1.1 11/14/2018 09:23 AM CREATININE, 24 HOUR URINE - [facility] 1.359 03/18/2004 10:35 AM CREATININE, RANDOM URINE - [facility] 118 04/26/2023 02:09 PM CREATININE, RANDOM URINE - [facility] 149 02/19/2013 10:23 AM Lab Results Component Value Date/Time POTASSIUM - [facility] 4.6 11/29/2023 02:09 PM POTASSIUM - [facility] 4.4 06/04/2020 08:29 AM [...] Results Component Value Date/Time ALT - [facility] 14 11/29/2023 02:09 PM ALT - [facility] 16 01/23/2020 10:50 AM Hemoglobin AIC Results: No results found for: "HEMOGLOBIN A1C" documented in this encounter Plan of Treatment Upcoming Encounters Date Type Department Care Team (Latest Contact Info) Description 03/13/2024 9:04 AM EDT Hospital Encounter OR [facility], OPERATING ROOM [facility], [facility] [address] [facility] [place] [address] Jose Lisa MD [address] [place] [address] 03/13/2024 9:04 AM EDT - 03/13/2024 10:32 AM EDT Surgery OR [facility], OPERATING ROOM [facility], [facility] [address] [facility] [place] [address] Jose Lisa MD [address] [place] [address] CYSTOURETHROSCOPY WITH FULGURATION SMALL BLADDER TUMOR 04/06/2024 11:00 AM EDT Office Visit Gastroenterology, [facility] [address] [address] Makayla Moody CRNP [address] [place] [address] 04/21/2024 2:20 PM EST Office Visit Family Practice [address] [facility] [address] [place] [address] Asad Scales, [address] [place] [address] 05/03/2024 1:45 PM EST Office Visit Urology, [place] [address] [place] [address] Baudilio Rosas MD [address] [place] [address] 07/28/2024 1:00 PM EST Procedure Only Urology, [place] [address], [place] [id number] Jose Lisa MD [address] [place] [address] 08/08/2024 2:45 PM EST Office Visit Hematology/Oncolo gy [facility] [address] [place] [phone] Martir Lazar MD [address] [facility] [place] [address] 09/05/2024 4:00 PM EDT Office Visit Cardiology, [facility] [address] [facility] [address] [place] [address] [facility]rid[facility]ay [facility] [address] 09/26/2024 11:00 AM EDT Nurse Only Ancillary [address] [facility] [address] [place] [address] College, Nurse Annual Wellness Visit [address] [place] [address] Scheduled Procedures Name Priority Associated Diagnoses Date/Ti me CYSTOURETHROSCOPY WITH FULGURATION SMALL BLADDER TUMOR Malignant neoplasm of overlapping sites of bladder (HCC) 03/13/2024 9:04 AM EDT Health Maintenance Due Date Last Done Comments COVID-19 Vaccine ( season) 2024 05/19/2022, 04/24/2021, 09/06/2020, Additional history exists Postponed from 02/06/2024 (Patient Declined After Education) CKD PHOS USE SMARTSET 95312 07/27/2024 02/2 , 02/25/2022, 01/29/2021 Adult Wellness Visit 09/20/2024 09/21/2023, 01/30/2022, 01/29/2021 Depression Screening 09/20/2024 09/21/2023 Albumin/Creatinine Ratio 03/02/2025 024, 04/26/2023, 07/13/2022, Additional history exists CKD HGB USE SMARTSET 57898 03/02/202503/02, 03/02/2024, 11/29/2023, Additional history exists DTap/Tdap [...] this encounter Medical Devices Implanted Type Area Buckle Frame Shaper Device Identifier Shelf Expiration Date Model / Serial / Lot Bifurcated Endograft Implanted:Qty: 1 on 03/29/2017 by Lisa Emerson MD at OR [facility] N/A: Aorta ENDOLOGIX 01/13/2018 UOU20-05/11 6-40 / [id number] / Proximal Endograft Implanted:Qty: 1 on 03/29/2017 by Lisa Emerson MD at OR [facility] N/A: Aorta ENDOLOGIX 01/16/2020 A25-25/C75- [id number] / [id number] / documented as of this encounter Visit [...] were consensually agreed upon. Care Teams Mold Stacker Relationship Specialty Start Date End Date Asad Scales DO [address] [place] [address] PCP - General Internal Medicine 11/19/23 documented as of this encounter
--- OUTSIDE RECORDS SUMMARY | 2024-05-15 19:00 | External Medical Summary ---
Author Name Unknown Address Unknown Organization [id number]:[facility] [address] [place] [id number] Laboratory Report Ordering Provider Test Date Status АННА KAMARA 03/10/2024 14:38:31 Final Observation Date Value Abnormality Reference (Units ) Status Nucleated erythrocytes/100 leukocytes [Ratio] in Blood by Automated count 03/10/2024 14:38:31 Final Performing Location [facility] [address] - [address] [place] [id number]
--- OUTSIDE RECORDS SUMMARY | 2024-05-15 19:00 | External Medical Summary | Summary of Care ---
Author Name Unknown Organization [facility] Address [address] [place] [address] Phone [phone] Care Team Providers Care Shearer Helper Name Role Phone Mitchclara Javon Barksdale DO Primary Care Provider [phone] Reason for Visit * Reason Comments Outpatient Testing Encounter Details Date Type Department Care Team (Late st Contact Info) Description 03/10/2024 2:40 PM EDT Laboratory Laboratory, [facility] [address] [place] [phone] [facility] [address] [place] [address] Thrombocytopenia (HCC) Allergies Active Allergy Reactions Criticality [...] 1 Capsule daily . Active Saline Nasal [place] 0.65 % Nasal Solution ([place])Indications: Epistaxis Administer into nostril 2 Sprays in the morning AND 2 Sprays before bedtime. 30 mL 12 07/29/2021 Active Nitroglycerin 0.4 MG Sublingual Tablet Sublingual (Nitrostat)Indicati ons:Atherosclerosis of [place] coronary artery of [place] heart without angina pectoris one tab under [...] (Tenormin)Indicatio ns:HTN, goal below 140/90,Atherosclero sis of [place] coronary artery of [place] heart without angina pectoris Take 1 tablet [...] CORONARY ATHEROSCLEROSIS OF UNSPECIFIED TYPE OF VESSEL, [place] OR GRAFT History of bladder cancer [...] stent and embolization 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/10 [facility] 08/09:1 month s/p reintervention for his [...] mRNA, LNP-s, No Pre serve, 2-Dose Series ([place]) 04/24/2021,09/06/2020,08/09/2020 Covid-19, Mrna, Lnp-s, Pf, B ivalent, 30 Mcg, IM, 12 yrs and above ([place]) 05/19/2022 H1N1 2009 Influenza, IM 05/28/2009 Influenza, [...] 03/13/2024 9:04 AM EDT Hospital Encounter OR [facility], OPERATING ROOM [facility], [facility] [address] [place] [phone] Jose Lisa MD [address] [place] [address] 03/13/2024 9:04 AM EDT - 03/13/2024 10:32 AM EDT Surgery OR [facility], OPERATING ROOM [facility], [facility] [address] [place] [address] Jose Lisa MD [address] [place], [place] [phone] CYSTOURETHROSCOPY WITH FULGURATION SMALL BLADDER TUMOR 04/06/2024 11:00 AM EDT Office Visit Gastroenterology, [facility] [address] [address] Makayla Moody CRNP [address] [address] 04/21/2024 2:20 PM EST Office Visit Family Practice [address] [place] [address] [address] [place] [phone] Javon Scales DO [address] [place] [address] 05/03/2024 1:45 PM EST Office Visit Urology, [place] [address] [place] [address] Baudilio Rosas MD [address] [place] [address] 07/28/2024 1:00 PM EST Procedure Only Urology, [place] [address] [place], [place] [phone] Jose Lisa MD [address] [place], [place] [phone] 08/08/2024 2:45 PM EST Office Visit Hematology/Oncolog y [facility] [address] [place] [address] Martir Lazar MD [address] [place] [address] 09/05/2024 4:00 PM EDT Office Visit Cardiology, [facility] [address] [place] [address] Sridhar Fay MD [address] [place] [address] 09/26/2024 11:00 AM EDT Nurse Only Family Practice [address] [place] [address] 293 [place] [address] Kelli Steele RN [address] [place] [address] Pending Results Name Type Priority Associated Diagnoses Date /Time CBC WITH WBC DIFFERENTIAL Lab STAT Thrombocytopenia (HCC) 03/10/2024 2:38 PM EDT CBC Lab STAT Thrombocytopenia (HCC) 03/10/2024 2:38 PM EDT DIFFERENTIAL, AUTOMATED Lab STAT Thrombocytopenia (HCC) 03/10/2024 2:38 PM EDT Scheduled Procedures Name Priority Associated Diagnoses Date/Ti me CYSTOURETHROSCOPY WITH FULGURATION SMALL BLADDER TUMOR Malignant neoplasm of overlapping sites of bladder (HCC) 03/13/2024 9:04 AM EDT Health Maintenance Due Date Last Done Comments COVID-19 Vaccine ( season) 2024 05/19/2022, 04/24/2021, 09/06/2020, Additional history exists CKD PHOS USE SMARTSET 95411 07/27/2024 02/, 02/25/2022, 01/29/2021 Adult Wellness Visit 09/20/2024 09/21/2023, 01/30/2022, 01/29/2021 Depression Screening 09/20/2024 09/21/2023 Albumin/Creatinine Ratio 03/02/2025 024, 04/26/2023, 07/13/2022, Additional history exists CKD HGB USE SMARTSET 63972 03/02/202503/02, 03/02/2024, 11/29/2023, Additional history exists DTap/Tdap [...] this encounter Medical Devices Implanted Type Area Banquet Supervisor Device Identifier Shelf Expiration Date Model / Serial / Lot Bifurcated Endograft Implanted:Qty: 1 on 03/29/2017 by Lisa Emerson MD at OR [facility] N/A: Aorta ENDOLOGIX 01/13/2018 KCR29-06/11 6-40 / [id number] / Proximal Endograft Implanted:Qty: 1 on 03/29/2017 by Lisa Emerson MD at OR [facility] N/A: Aorta ENDOLOGIX 01/16/2020 A25-25/C75- O20V / [id number] / documented as of this encounter Visit [...] and were consensually agreed upon. Care Teams Shearer Helper Relationship Specialty Start Date End Date Javon Scales DO [address] [facility] [address] PCP - General Internal Medicine 11/19/23 documented as of this encounter
--- OUTSIDE RECORDS SUMMARY | 2024-05-15 19:00 | External Medical Summary | Summary of Care ---
Author Name Unknown Organization [facility] Address [address] [place] [address] Phone [phone] Care Team Providers Care Digital Associate Media Director Name Role Phone Javon Scales DO Primary Care Provider [phone] Reason for Visit * Reason Comments Acute Pt here for a lump o n his left side - states it was twice size than it is today. It's about baseball size. Hard to the touch. Gets pain that radiates around his side and back. Worse at night. 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 Active Saline Nasal Chambers 0.65 % Nasal Solution (Hand)Indications: Epistaxis Administer into nostril 2 Sprays in the morning AND 2 Sprays before bedtime. 30 mL 12 07/29/2021 Active Nitroglycerin 0.4 MG Sublingual Tablet Sublingual (Nitrostat)Indicati ons:Atherosclerosis of wilton coronary artery of wilton heart [...] (Tenormin)Indicatio ns:HTN, goal below 140/90,Atherosclero sis of wilton coronary artery of wilton heart [...] CORONARY ATHEROSCLEROSIS OF UNSPECIFIED TYPE OF VESSEL, MENOMINEE OR GRAFT History of bladder cancer documented [...] No Pre serve, 2-Dose Series (Pfizer) 04/24/2021,09/06/2020,08/09/2020 Covid-19, Mrna, Lnp-s, Pf, B ivalent, [...] Sign Reading Time Taken Comments Blood Pressure 156/90 03/10/2024 1:36 PM EDT Pulse 68 03/10/2024 1:36 PM EDT Temperature 35.8 C (96.5 F) 03/10/2024 1:36 PM ED T Respiratory Rate 16 03/10/2024 1:36 PM EDT Oxygen Saturation 98% 03/10/2024 1:36 PM EDT Inhaled Oxygen Concentration - - Weight 61.2 kg (134 lb 14.4 oz) 03/10/2024 1:36 PM EDT Height 161.9 cm (5' 3.75") 03/10/2024 1:36 PM ED T Body Mass Index 23.34 03/10/2024 1:36 PM EDT documented in this encounter Functional [...] of this encounter Progress Notes * Javon Scales DO - 03/10/2024 3:15 PM EDT SUBJECTIVE: Cedric P Delgrippo Jr. is a 88 year old male. Chief Complaint Patient presents with Acute Pt here for a lump on his left side - states it was twice size than it is today. It's about baseball size. Hard to the touch. Gets pain that radiates around his side and back. Worse at night. 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 Cystoscopy and bladder biopsy is scheduled for 03/13/2024. The patient had malignant cells on urine cytology done 01/24/2024. No chest pain or shortness of breath are present. Weight is down and appetite is fair. Chronic back pain is unchanged. He is unable to walk long distances due to back pain. No recent falls. 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 Saline Nasal Chambers 0.65 % Nasal Solution (Hand) Administer into nostril 2 Sprays in the [...] NIGHTLY ASNEEDED FOR ITCHING 60 mL 0 Aspirin 81 MG Oral Tablet Delayed Release [...] needed for Pain, Severe. 90 Tablet 0 dexAMETHasone 4 MG Oral Tablet (Decadron) Take 10 Tablets by mouth daily with breakfast for 4 days.40 Tablet 0 Pantoprazole Sodium 40 MG Oral Tablet Delayed Release (Protonix) Take 1 Tablet by mouth in the morning for 4 days. 4 Tablet 0 No current facility-administered medications for this [...] years COLONOSCOPY, DIAGNOSTIC (RECTUM) 10/23/2015 benign polyps, diverticulosis/[facility] CYSTO/URETERO W/LITHOTRIPSY Right 02/28/2019 CYSTOURETHROSCOPY URETEROSCOPY WITH LITHOTRIPSY AND STENT INSERTION performed by Alen Aguilar MD [place] [facility] [place] 03-05-2010 CYSTOSCOPY/INSERTION OF STENT Right 12/19/2018 CYSTOURETHROSCOPY WITH INSERTION URETERAL STENT performed by Alen Aguilar MD at [facility] CYSTOSCOPY/TREAT LGE BLADDER TUMOR N/A 10/07/2018 CYSTOURETHROSCOPY WITH FULGURATION LARGE BLADDER TUMOR performed by Alen Aguilar MD [place] [facility] [place]STOSCOPY/TREAT LGE BLADDER TUMOR N/A 05/22/2021 CYSTOURETHROSCOPY WITH FULGURATION LARGE BLADDER TUMOR performed by Alysa Valente MD at [place] [facility] CYSTOURETERO W/BIOPSY Right 12/19/2018 CYSTOURETHROSCOPY URETEROSCOPY WITH BIOPSY AND OR FULGURATION LESION performed by Alen Aguilar MD at [place] [facility] CYSTOURETERO W/BIOPSY N/A 02/28/2019 CYSTOURETHROSCOPY URETEROSCOPY WITH BIOPSY AND OR FULGURATION LESION performed by Alen Aguilar MD [place] [facility] CYSTOURETERO W/BIOPSY Bilateral 09/21/2019 CYSTOURETHROSCOPY URETEROSCOPY WITH BIOPSY AND OR FULGURATION LESION performed by Alysa Valente MD [place] [facility] CYSTOURETHROSCOPY W/BIOPSY N/A 05/22/2021 CYSTOURETHROSCOPY WITH BIOPSY performed by Alysa Valente MD [place] [facility] ENDOVASC ABDO REPR W/BI DEVICE N/A 03/29/2017 ENDOVASCULAR REPAIR ABDOMINAL AORTIC ANEURYSM BIF PROS 1 LIMB performed by Lisa Emerson MD at [place] [facility] FLUORO PYELOGRAM RETROGRADE Left 02/28/2019 UROGRAHY, RETROGRADE, WITH OR WITHOUT KUB performed by Alen Aguilar MD [place] [facility] [place]UORO PYELOGRAM RETROGRADE Bilateral 09/21/2019 UROGRAHY, RETROGRADE, WITH OR WITHOUT KUB performed by Alysa Valente MD [place] [facility] INFORMATION open heart surgery [facility] INFORMATION 07/1999 bladder [facility] danella INFORMATION 03/29/2017 model# OHN94-54/116-40 AFX Endovascular AAA Stent Graft Extension INFORMATION 03/29/2017 model# A25-25/O61-N99V AFX Endovascular AAA Stent Limb Extension INJECT DX/THER SUBSTANCE INTERLAMINAR LUMBAR/SACRAL W IMAGE GUIDE 05/25/2019 INJECTION SPINE LUMBAR OR SACRAL performed by Surprise Maribel Gil, DO at OR [facility] INJECT DX/THER SUBSTANCE INTERLAMINAR LUMBAR/SACRAL W IMAGE GUIDE 06/22/2019 INJECTION SPINE LUMBAR OR SACRAL performed by Michel Gil, DO at OR [facility] INJECT DX/THER SUBSTANCE INTERLAMINAR LUMBAR/SACRAL W IMAGE GUIDE 02/01/2020 INJECTION SPINE LUMBAR OR SACRAL performed by Michel Davide Gil DO at OR [facility] IOF CT GUIDED NEEDLE BIOPSY 03/06/2011 CT GUIDED NEEDLE ASPIRATION BIOPSY performed by DUDLEY WARNER at [place] [place] ENDOVASCULAR REPAIR ILIAC 04/17/04 right common iliac aneurysm stent graft repair, right hypogastric embolization, Dr. 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 Noel REMOVAL OF TONSILS, UNDER AGE 12 Tonsils Removal,<12 Y/O Review of patient's allergies indicates: Allergen Reactions Ciprofloxacin Stomach upset Finasteride Other (Please comment) Enlarged breast tissue Flomax [Tamsulosin Hcl] collapse Levaquin [Levofloxacin] Other (Please comment) Hx of achilles tendon tear Lipitor [Atorvastatin] Abdominal pain Lisinopril Caused pt to have blurred vision and become very flushed Zocor [Simvastatin] Abdominal pain Review of Systems Constitutional: Positive for appetite change. Negative for fatigue and fever. HENT: Negative for congestion, sore throat and trouble swallowing. Respiratory: Negative for cough, shortness of breath and wheezing. Cardiovascular: Negative for chest pain, palpitations and leg swelling. Gastrointestinal: Negative for abdominal pain, blood in stool, constipation, diarrhea, nausea and vomiting. Genitourinary: Positive for frequency. Negative for dysuria and hematuria. Musculoskeletal: Positive for arthralgias, back pain and gait problem. Neurological: Negative for dizziness, syncope and headaches. Psychiatric/Behavioral: Negative for confusion, decreased concentration and sleep disturbance. OBJECTIVE: BP 156/90 (BP Site: Left Arm, BP Position: Sitting) | Pulse 68 | Temp 35.8 C (96.5 F) | Resp 16| Ht 1.619 m (5' 3.75") | Wt 61.2 kg (134 lb 14.4 oz) | SpO2 98% | BMI 23.34 kg/m | BSA 1.66 m Physical Exam Vitals and nursing note reviewed. Constitutional: General: He is not in acute distress. Appearance: Normal appearance. He is not toxic-appearing. HENT: Head: Normocephalic and atraumatic. Cardiovascular: Rate and Rhythm: Normal rate and regular rhythm. Heart sounds: Normal heart sounds. No murmur heard. No gallop. Pulmonary: Effort: Pulmonary effort is normal. Breath sounds: Normal breath sounds. No wheezing, rhonchi or rales. Chest: Comments: Palpable lower ribs in area of concern due to body habitus Abdominal: General: Bowel sounds are normal. There is no distension. Palpations: Abdomen is soft. Tenderness: There is no abdominal tenderness. Musculoskeletal: Right lower leg: No edema. Left lower leg: No edema. Neurological: Mental Status: He is alert and oriented to person, place, and time. Mental status is at baseline. Gait: Gait abnormal. Psychiatric: Mood and Affect: Mood normal. Behavior: Behavior normal. Thought Content: Thought content normal. XR CHEST 2 VIEWS Result Date: 03/10/2024 [...] Moderate to severe degenerative disc disease, progressed. Component Latest Ref Rng 03/10/2024 WBC 4.00 - 10.80 K/uL 6.20 Neutrophils % 40.0 - 75.0 % 81.5 (H) Lymphocytes % 18.0 - 42.0 % 12.9 (L) Monocytes % 1.0 - 11.0 % 5.3 Eosinophils % 0.0 - 6.0 % 0.0 Basophils % 0.0 - 2.0 % 0.3 Absolute Neutrophils 1.80 - 7.70 K/uL 5.05 Absolute Lymphocytes 1.00 - 4.80 K/ul 0.80 (L) Absolute Monocytes 0.00 - 1.10 K/uL 0.33 Absolute Eosinophils 0.00 - 0.70 K/uL 0.00 Absolute Basophils 0.00 - 0.20 K/uL 0.02 WBC 4.00 - 10.80 K/uL 6.20 RBC 4.50 - 5.25 M/uL 4.04 HGB 14.0 - 16.8 g/dL 12.8 (L) HCT 40.0 - 48.4 % 37.4 (L) MCV 82.0 - 99.5 fL 92.6 MCH 27.0 - 34.0 pg 31.7 MCHC 32.0 - 36.0 g/dL 34.2 RDW 11.5 - 15.5 % 15.1 PLT 140 - 400 K/uL 76 (L) MPV 6.6 - 11.1 fL 13.2 Legend: (H) High (L) Low PLAN AND ASSESSMENT: Malignant neoplasm of overlapping sites of bladder (HCC) (Primary) Patient stable for cystoscopy Thrombocytopenia (HCC) Continue Dexamethasone for 2 more days 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 Atherosclerosis of wilton coronary artery of wilton heart without angina pectoris ASA held prior to procedure Hypertensive kidney disease with stage 3a chronic kidney disease (HCC) Continue Atenolol and Amlodipine DYSLIPIDEMIA, GOAL LDL BELOW 100 Continue Pravastatin Benign prostatic hyperplasia with urinary retention History of lung cancer H/O endovascular stent graft for abdominal aortic aneurysm Follow Up: Return in about 6 weeks (around 04/21/2024), or if symptoms worsen or fail to improve. Javon Scales DO 3:15 PM 03/10/2024 documented in this encounter Nursing Notes * Damaris Jacobsen CCMA - 03/10/2024 1:35 PM EDT Chief Complaint Patient presents with Acute Pt here for a lump on his left side - states it was twice size than it is today. It's about baseball size. Hard to the touch. Gets pain that radiates around his side and back. Worse at night. Patient has been verbally educated on the need or importance of covid and has declined topic(s). documented in this encounter Plan of Treatment Upcoming Encounters Date Type Department Care Team (Latest Contact Info) Description 03/13/2024 9:04 AM EDT Hospital En[place] [facility] [address] [place] [address] Jose Lisa MD [address] [place] [address] 03/13/2024 9:04 AM EDT - 03/13/2024 10:32 AM EDT Surgery [place] [facility] [facility] [address] [facility] [place] [address] Jose Lisa MD [address] [place] [address] CYSTOURETHROSCOPY WITH FULGURATION SMALL BLADDER TUMOR 04/06/2024 11:00 AM EDT Office Visit Gastroenterology, [facility] [address] [facility] [place] [address] Makayla Moody [facility] [address] 04/21/2024 2:20 PM EST Office Visit Family Practice [address] [place] [address] [place] [phone] Javon Scales, [address] [place] [address] 05/03/2024 1:45 PM EST Office Visit Urology, [place] [address] [place] [address] Baudilio Rosas MD [address] [place] [address] 07/28/2024 1:00 PM EST Procedure Only Urology, [place] [address] [place] [address] Jose Lisa MD [address] [place] [address] 08/08/2024 2:45 PM EST Office Visit Hematology/Oncolog y [facility] [address] [place] [phone] Martir Lazar MD [address] [place] [address] 09/05/2024 4:00 PM EDT Office Visit Cardiology, [facility] [address] [facility] [place] [address] Sridhar Fay MD [address] [facility] [place] [address] 09/26/2024 11:00 AM EDT Nurse Only Family Practice [address] [place] [address] [place] [phone] Kelli Steele RN [address] [place] [address] Scheduled Procedures Name Priority Associated Diagnoses Date/Ti me CYSTOURETHROSCOPY WITH FULGURATION SMALL BLADDER TUMOR Malignant neoplasm of overlapping sites of bladder (HCC) 03/13/2024 9:04 AM EDT Health Maintenance Due Date Last Done Comments COVID-19 Vaccine ( season) 2024 05/19/2022, 04/24/2021, 09/06/2020, Additional history exists CKD PHOS USE SMARTSET 99124 07/27/202407/09, 02/25/2022, 01/29/2021 Adult Wellness Visit 09/20/2024 09/21/2023, 01/30/2022, 01/29/2021 Depression Screening 09/20/2024 09/21/2023 Albumin/Creatinine Ratio 03/02/2025 024, 04/26/2023, 07/13/2022, Additional history exists CKD HGB USE SMARTSET 31768 03/10/202503/10, 03/10/2024, 03/02/2024, Additional history exists DTap/Tdap [...] this encounter Medical Devices Implanted Type Area Principal Clerk Typist Device Identifier Shelf Expiration Date Model / Serial / Lot Bifurcated Endograft Implanted:Qty: 1 on 03/29/2017 by Lisa Emerson MD [place] [facility] [place]/A: Aorta ENDOLOGIX 01/13/2018 [id number] / [id number] / Proximal Endograft Implanted:Qty: 1 on 03/29/2017 by Lisa Emerson MD [place] [facility] N/A: Aorta ENDOLOGIX 01/16/2020 [id number] / [id number] / documented as of this encounter Results * XR CHEST 2 VIEWS (03/10/2024 2:31 PM EDT) Anatomical Region Laterality Modality Chest Digital Radiogra phy 03/10/2024 2:50 PM EDT Impressions 03/10/2024 2:47 PM EDT IMPRESSION 1. Chronic findings, as above. Dedicated rib series may be more sensitive and specific to left lower rib pathology. There is some protrusion of left anterior rib cartilage on prior CTs in likely relation to the thin body habitus. Narrative 03/10/2024 2:47 PM EDT EXAM XR CHEST 2 VIEWS - 03/10/2024 2:31 pm HISTORY left lower rib deformity TECHNIQUE Frontal and lateral radiographs of the chest were obtained. COMPARISON Chest CT 01/14/2024. FINDINGS FOREIGN BODIES, SUPPORT TUBES, LINES, DEVICES: Intact sternal wires. Mediastinal surgical clips typical of CABG. LUNGS, PLEURA: Focal opacity at the right lung apex presumably related to radiation fibrosis. Overlying chronic rib fracture deformity of the right anterior 2nd rib noted, stable across preceding CTs. Left apical nodule again seen and more accurately evaluated on prior chest CTs. No consolidation. No pneumothorax or effusion. CARDIOVASCULAR, MEDIASTINUM: Stable cardiomediastinal silhouette. Atherosclerotic calcifications. Partially imaged abdominal aortic stent. OTHER: Chronic levocurvature of the spine likely associated with multilevel degenerative changes. Multiple old, healed left posterior rib fracture deformities also noted. No obvious acute rib fracture deformities on this two view examination of the chest. Procedure Note Quinton Miller MD - 03/10/2024 EXAM XR CHEST 2 VIEWS - 03/10/2024 2:31 pm HISTORY left lower rib deformity TECHNIQUE Frontal and lateral radiographs of the chest were obtained. COMPARISON Chest CT 01/14/2024. FINDINGS FOREIGN BODIES, SUPPORT TUBES, LINES, DEVICES: Intact sternal wires.Mediastinal surgical clips typical of CABG. LUNGS, PLEURA: Focal opacity at the right lung apex presumably related toradiation fibrosis. Overlying chronic rib fracture deformity of the rightanterior 2nd rib noted, stable across preceding CTs. Left apical noduleagain seen and more accurately evaluated on prior chest CTs. Noconsolidation. No pneumothorax or effusion. CARDIOVASCULAR, MEDIASTINUM: Stable cardiomediastinal silhouette.Atherosclerotic calcifications. Partially imaged abdominal aorticstent. OTHER: Chronic levocurvature of the spine likely associated withmultilevel degenerative changes. Multiple old, healed left posterior ribfracture deformities also noted. No obvious acute rib fracturedeformities on this two view examination of the chest. IMPRESSION IMPRESSION 1. Chronic findings, as above. Dedicated rib series may be more sensitiveand specific to left lower rib pathology. There is some protrusion ofleft anterior rib cartilage on prior CTs in likely relation to the thinbody habitus. 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 Atherosclerosis of wilton coronary artery of wilton heart without angina pectoris Hypertensive kidney disease with stage 3a chronic kidney disease (HCC) DYSLIPIDEMIA, GOAL LDL BELOW 100 Other and unspecified hyperlipidemia Benign prostatic hyperplasia with urinary retention History of lung cancer Personal history of malignant neoplasm of bronchus and lung H/O endovascular stent graft for abdominal aortic aneurysm Blood vessel replaced by other means 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 Care Teams Digital Associate Media Director Relationship Specialty Start Date End Date Javon Scales DO [address] [place] [address] PCP - General Internal Medicine 11/19/23 documented as of this encounter
--- OUTSIDE RECORDS SUMMARY | 2024-05-15 19:00 | External Medical Summary | Summary of Care ---
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 Role Phone Javon Scales DO Primary Care Provider [phone] Reason for Visit * Reason Comments Follow Up Encounter Details Date Type Department Care Team (Latest Contact Info) Description 03/02/2024 10:00 AM EDT Office Visit Family Practice [facility] [address] [place] [address] Javon Scales DO [address] [place] [address] Preoperative general physical examination*; Malignant neoplasm of overlapping sites of bladder (HCC); Thrombocytopenia (HCC); Hypertensive kidney disease with stage 3a chronic kidney disease (HCC); 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; Aortocoronary bypass status; DYSLIPIDEMIA, GOAL LDL BELOW 100; History of lung cancer; Degeneration of intervertebral disc of lumbar region with discogenic back pain and lower extremity pain; H/O endovascular stent graft for abdominal aortic aneurysm; RORY inhibitor intolerance; Fecal occult blood test positive; Anemia, unspecified type; Other constipation Allergies Active Allergy Reactions Criticality Noted Date Comments Ciprofloxacin 09/27/2018 Stomach upset Finasteride Other (Please comment) 09/21/2023 Enlarged breast tissue Tamsulosin Hcl 01/14/2010 collapse Levofloxacin Other (Please comment) 03/05/2017 Hx of achilles tendon tear Atorvastatin Abdominal pain 12/23/2015 Lisinopril 03/11/2007 Caused pt to have blurred vision and become very flushed Simvastatin Abdominal pain 12/23/2015 documented as of this encounter (statuses as of 03/09/2024) Medications Medication Sig Dispensed Refills Start Date [...] TWICE DAILY 135 g 5 0 Active Triamcinolone Acetonide 0.1 % External Lotion (Aristocort) Apply to affected area at groin twice daily as needed 60 mL 2 1 Active PreserVision AREDS 2+Multi Vit Oral Capsule Take by mouth 1 Capsule daily . Active Saline Nasal [place] 0.65 % Nasal Solution ([place])Indicatio ns:Epistaxis Administer into nostril 2 Sprays in the morning AND 2 Sprays before bedtime. 30 mL 12 2 Active Nitroglycerin 0.4 MG Sublingual Tablet Sublingual (Nitrostat)Indic ations:Atheroscl erosis of platinum coronary artery of platinum heart without angina pectoris one tab under [...] (Tenormin)Indica tions:HTN, goal below 140/90,Atheroscl erosis of platinum coronary artery of platinum heart without angina pectoris Take 1 tablet [...] a day as needed (Hemorrhoids). 4 Active predniSONE 20 MG Oral Tablet (Deltasone)Indic ations:Neck pain Take 1 Tablet by mouth in the morning and 1 Tablet before bedtime. Do all this for 5 days. 10 Tablet 4 03/02/20 24 Discontinued oxyCODONE HCl 5 MG Oral Tablet (Oxy IR)Indications:L umbar degenerative disc disease,Spinal stenosis of lumbar region at multiple levels,Chronic bilateral low back pain with bilateral sciatica Take 1 Tablet by mouth every 8 hours as needed for Pain, Severe. 90 Tablet 4 03/02/20 24 Discontinued(Ref ill) documented as of this encounter (statuses as of 03/09/2024) Active Problems Problem Noted Date Diagnosed Date [...] OF UNSPECIFIED TYPE OF VESSEL, [place] OR GRAFT History of bladder cancer documented as of this encounter (statuses as of 03/09/2024) Resolved Problems Problem Noted Date Diagnosed Date [...] embolization 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 [facility] [place]1 month s/p reintervention for his R [...] as of this encounter (statuses as of 03/09/2024) Immunizations Name Administration Dates Next Due COVID-19 mRNA, LNP-s, No Pre serve, 2-Dose Series (Lumicity) 04/24/2021,09/06/2020,08/09/2020 Covid-19, Mrna, Lnp-s, Pf, B ivalent, [...] Sign Reading Time Taken Comments Blood Pressure 134/70 03/02/2024 10:10 AM EDT Pulse 60 03/02/2024 10:10 AM EDT Temperature 36.4 C (97.6 F) 03/02/2024 10:10 AM E DT Respiratory Rate 16 03/02/2024 10:10 AM EDT Oxygen Saturation 97% 03/02/2024 10:10 AM EDT Inhaled Oxygen Concentration - - Weight 62.9 kg (138 lb 9.6 oz) 03/02/2024 10:10 AM EDT Height 161.9 cm (5' 3.75") 03/02/2024 10:10 AM E DT Body Mass Index 23.98 03/02/2024 10:10 AM EDT documented in this encounter Functional [...] Progress Notes * Javon Scales DO - 03/03/2024 9:08 AM EDT SUBJECTIVE: Cedric Carson Treydejon Beebe. is a 88 year old male. Chief Complaint Patient presents with Follow Up HPI: Patient is an 88 year old male with a history of CAD, CABG, right iliac stent graft, endovascular AAA repair, AAA endoleak repair, HTN, Hyperlipidemia, Adenocarcinoma of the Lung treated with radiation, Recurrent Bladder Cancer, Thrombocytopenia, and Lumbar Disc Disease that is seen for preoperative medical evaluation prior to bladder biopsy. The patient had malignant cells on urine cytology done01/24/2024. No chest pain or shortness of breath are present. Weight is down and appetite is fair. Chronic back pain is unchanged. He is unable to walk long distances due to back pain. No recent falls. Reviewed management with Cardiology and Hematology/ Oncology. 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 CORONARY ATHEROSCLEROSIS OF UNSPECIFIED TYPE OF VESSEL, [place] OR GRAFT History of bladder cancer Macular [...] C) CHEW 1 Tablet in the morning. PreserVision AREDS 2+Multi Vit Oral Capsule Take [...] Take 1 capful daily in the morning.. senna-docusate (SENOKOT S) 8.6-50 MG per tablet Take 1 Tab by mouth 2 times a day as needed for Constipation. 1 Tab clotrimazole-betamethasone (LOTRISONE) 1-0.05 % cream APPLY TOPICALLY TO RIGHT LEG AREA TWICE [id number] g 5 Triamcinolone Acetonide 0.1 % External Lotion (Aristocort) Apply to affected area at groin twice daily as needed 60 mL 2 Saline Nasal [place]uff 0.65 % Nasal Solution ([place]) Administer into nostril 2 Sprays in the morning AND 2 Sprays before bedtime. 30 mL 12 Ketoconazole 2 % External Shampoo (Nizoral) USE SHAMPOO AT LEAST 3 TIMES PER WEEK, LATHER, WAIT 5 MINUTES THEN RINSE 120 mL 0 Fluocinonide 0.05 % External Solution APPLY SOLUTION TOPICALLY TO AFFECTED AREA OF SCALP NIGHTLY ASNEEDED FOR ITCHING 60 mL 0 Psyllium 58.6 % Oral Packet (Metamucil) Take 1 Packet by mouth in the morning. Preparation H 0.25-14-74.9 % Rectal Ointment (Preparation H) Administer into the rectum 4 times a day as needed (Hemorrhoids). oxyCODONE HCl 5 MG Oral Tablet (Oxy IR) Take 1 Tablet by mouth every 8 hours as needed for Pain, Severe. 90 Tablet 0 No current facility-administered medications for [...] years COLONOSCOPY, DIAGNOSTIC (RECTUM) 10/23/2015 benign polyps, diverticulosis/[facility] CYSTO/URETERO W/LITHOTRIPSY Right 02/28/2019 CYSTOURETHROSCOPY URETEROSCOPY WITH LITHOTRIPSY AND STENT INSERTION performed by Alen Aguilar MD [place] [facility] [place] 03-05-2010 CYSTOSCOPY/INSERTION OF STENT Right 12/19/2018 CYSTOURETHROSCOPY WITH INSERTION URETERAL STENT performed by Alen Aguilar MD at [place] [facility] CYSTOSCOPY/TREAT LGE BLADDER TUMOR N/A 10/07/2018 CYSTOURETHROSCOPY WITH FULGURATION LARGE BLADDER TUMOR performed by Alen Aguilar MD at [place] [facility] CYSTOSCOPY/TREAT LGE BLADDER TUMOR N/A 05/22/2021 CYSTOURETHROSCOPY WITH FULGURATION LARGE BLADDER TUMOR performed by Alysa Valente MD at [place] [facility] CYSTOURETERO W/BIOPSY Right 12/19/2018 CYSTOURETHROSCOPY URETEROSCOPY WITH BIOPSY AND OR FULGURATION LESION performed by Alen Aguilar MD at [place] [facility] CYSTOURETERO W/BIOPSY N/A 02/28/2019 CYSTOURETHROSCOPY URETEROSCOPY WITH BIOPSY AND OR FULGURATION LESION performed by Alen Aguilar MD at [place] [facility] CYSTOURETERO W/BIOPSY Bilateral 09/21/2019 CYSTOURETHROSCOPY URETEROSCOPY WITH BIOPSY AND OR FULGURATION LESION performed by Alysa Valente MD at [place] [facility] CYSTOURETHROSCOPY W/BIOPSY N/A 05/22/2021 CYSTOURETHROSCOPY WITH BIOPSY performed by Alyas Valente MD at [place] [facility] ENDOVASC ABDO REPR W/BI DEVICE N/A 03/29/2017 ENDOVASCULAR REPAIR ABDOMINAL AORTIC ANEURYSM BIF PROS 1 LIMB performed by Lisa Emerson MD at [place] [facility] FLUORO PYELOGRAM RETROGRADE Left 02/28/2019 UROGRAHY, RETROGRADE, WITH OR WITHOUT KUB performed by Alen Aguilar MD at [place] [facility] FLUORO PYELOGRAM RETROGRADE Bilateral 09/21/2019 UROGRAHY, RETROGRADE, WITH OR WITHOUT KUB performed by Alysa Valente MD at [place] [facility] INFORMATION open heart surgery [facility] INFORMATION 07/1999 bladder [facility] danella INFORMATION 03/29/2017 model# XOH39-22/[id number] AFX Endovascular AAA Stent Graft Extension INFORMATION 03/29/2017 model# A25-25/[id number] AFX Endovascular AAA Stent Limb Extension INJECT DX/THER SUBSTANCE INTERLAMINAR LUMBAR/SACRAL W IMAGE GUIDE 05/25/2019 INJECTION SPINE LUMBAR OR SACRAL performed by Michel Maribel Gil, DO at OR [facility] INJECT DX/THER SUBSTANCE INTERLAMINAR LUMBAR/SACRAL W IMAGE GUIDE 06/22/2019 INJECTION SPINE LUMBAR OR SACRAL performed by Michel Ashleys, DO at OR [facility] INJECT DX/THER SUBSTANCE INTERLAMINAR LUMBAR/SACRAL W IMAGE GUIDE 02/01/2020 INJECTION SPINE LUMBAR OR SACRAL performed by Michel Gil, DO at OR [facility] IOF CT GUIDED NEEDLE BIOPSY 03/06/2011 CT GUIDED NEEDLE ASPIRATION BIOPSY performed by DUDLEY WARNER at RADIOLOGY [facility] IR ENDOVASCULAR REPAIR ILIAC 04/17/04 right common [...] become very flushed Zocor [Simvastatin] Abdominal pain Family History Problem Relation Name Age of Onset Cancer Mother breast Hypertension Father abdominal aneurysm Diabetes Mother Heart Disorder Father Cancer Other many family members Stroke Other many family members Hypertension Sister Social History Tobacco Use Smoking status: Former Current packs/day: 0.00 Average packs/day: 1 pack/day for 20.0 years (20.0 ttl pk-yrs) Types: Cigarettes Start date: 11/25/1977 Quit date: 11/25/1997 Years since quittin.2 Passive exposure: Past Smokeless tobacco: Never Tobacco comments: quit smoking about 1997 Vaping Use Vaping status: Never Used Substance Use Topics Alcohol use: Yes Comment: occassionally Drug use: No Review of Systems Constitutional: Positive for appetite change. Negative for chills, fatigue and fever. HENT: Negative for congestion, [...] decreased concentration and sleep disturbance. OBJECTIVE: BP 134/70 | Pulse 60 | Temp 36.4 C (97.6 F) (Tympanic) | Resp 16 | Ht 1.619 m (5' 3.75") | Wt 62.9 kg (138 lb 9.6 oz) | SpO2 97% | BMI 23.98 kg/m | BSA 1.68 m Physical Exam [...] Content: Thought content normal. PLAN AND ASSESSMENT: Preoperative general physical examination (Primary) No cardiac testing is necessary prior to Cystoscopy/ Biopsy Hematology / Oncology recommends Decadron 40 mg a day for 4 days prior to procedure. Protonix 40 mg daily for 4 days. Repeat CBC with diff on 03/12/2024 Malignant neoplasm of overlapping sites of bladder (HCC) Patient scheduled for cystoscopy and biopsy Thrombocytopenia (HCC) - CBC WITH WBC DIFFERENTIAL AND ANEMIA REFLEX WORKUP Hematology / Oncology recommends Decadron 40 mg a day for 4 days. Protonix 40 mg daily for 4 days. 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 - EKG; Future; Expected date: 03/02/2024 - EKG Continue Atenolol Hold ASA for 7 days prior to surgery Aortocoronary bypass status DYSLIPIDEMIA, GOAL LDL BELOW 100 Continue Pravastatin History of lung cancer Treated with Radiation CT chest 01/17/2024 was stable without new suspicious nodule Lumbar degenerative disc disease Continue Oxycodone H/O endovascular stent graft for abdominal aortic aneurysm RORY inhibitor intolerance Fecal occult blood test positive - CBC WITH WBC DIFFERENTIAL AND ANEMIA REFLEX WORKUP Anemia, unspecified type - CBC WITH WBC DIFFERENTIAL AND ANEMIA REFLEX WORKUP Other constipation - CBC WITH WBC DIFFERENTIAL AND ANEMIA REFLEX WORKUP Continue Miralax, Senna S and Psyllium Other orders - INFLUENZA VAC., TRIVALENT, HD, PF, 65 AND ABOVE, 0.5 ML IM (FLUZONE HD) I spent a total of 40-54 minutes (exact time 50 mins) on the date of service in preparation, delivery, and documentation of the care provided to Cedric Sam JrLady excluding any time spent in the performance of separately billed services or time spent by another provider/QHP. Follow Up: Return in about 7 weeks (around 04/21/2024), or if symptoms worsen or fail to improve. Javon Scales DO 9:08 AM 03/03/2024 * Kelli Mota LPN - 03/02/2024 10:07 AM EDT ekg done as per 's order documented in this encounter Procedure Notes * Pérez Snyder DO - 03/02/2024 10:44 AM EDTAssociated Order(s): EKG REASON FOR STUDY: CAD, HTN, Preop;CAD, HTN, Preop CONCLUSIONS: Sinus rhythm with 1st degree AV block Inferior infarct (cited on 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-1997) Anterior infarct (cited on 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-1997) Abnormal ECG When compared with ECG of 02-Jul-2022 14:53, Premature atrial complexes are no longer Present Questionable change in initial forces of Lateral leads Ventricular Rate: 60 Atrial Rate: 60 QRS Duration: 88 QT/QTc: 408/408 ms P-R-T [place]: 0 : -29 : 51 degrees documented in this encounter Miscellaneous Notes * Result Encounter Note - Makayla Moody CRNP - 03/03/2024 7:22 AM EDT Hemoglobin stable. Platelet level also stable. documented in this encounter Plan of Treatment Upcoming Encounters Date Type Department Care Team (Latest Contact Info) Description 03/10/2024 1:40 PM EDT Office Visit Family Practice [address] [place] [address] [place] [address] Javon Scales DO [address] [place] [address] 03/13/2024 9:04 AM EDT Hospital Encounter [facility] [place] [place] [address] [place] [phone] Jose Lisa MD [address] [place] [address] 03/13/2024 9:04 AM EDT - 03/13/2024 10:32 AM EDT Surgery [place] [facility]PER[facility] [address] [place] [address] Jose Lisa MD [address] [place] [address] CYSTOURETHROSCOPY WITH FULGURATION SMALL BLADDER TUMOR 04/06/2024 11:00 AM EDT Office Visit Gastroenterology, [facility] [address] [place] [address] Makayla Moody CRNP [address] [place] [address] 04/21/2024 2:20 PM EST Office Visit Family [address] [place] [address] Javon Scales DO [address] [place] [address] 05/03/2024 1:45 PM EST Office Visit Urology, [place] [address] [place] [address] Baudilio Rosas MD [address] [place] [address] 07/28/2024 1:00 PM EST Procedure Only Urology, [place] [address] [place] [address] Jose Lisa MD [address] [place] [address] 08/08/2024 2:45 PM EST Office Visit Hematology/Oncolog y [facility] [address] [facility] [place] [id number] Martir Lazar MD [address] [facility] [place] [address] 09/05/2024 4:00 PM EDT Office Visit Cardiology, [facility] [address] [place] [address] Sridhar Fay MD [address] [address] 09/26/2024 11:00 AM EDT Nurse Only Family Practice [address] [place] [address], [place] [address] [facility] [address] Kelli Steele, ANIA [address] [place] [address] Scheduled Procedures Name Priority Associated Diagnoses Date/Ti me CYSTOURETHROSCOPY WITH FULGURATION SMALL BLADDER TUMOR Malignant neoplasm of overlapping sites of bladder (HCC) 03/13/2024 9:04 AM EDT Health Maintenance Due Date Last Done Comments COVID-19 Vaccine ( season) 2024 05/19/2022, 04/24/2021, 09/06/2020, Additional history exists CKD PHOS USE SMARTSET 93447 07/27/202407/09, 02/25/2022, 01/29/2021 Adult Wellness Visit 09/20/2024 09/21/2023, 01/30/2022, 01/29/2021 Depression Screening 09/20/2024 09/21/2023 Albumin/Creatinine Ratio 03/02/2025 024, 04/26/2023, 07/13/2022, Additional history exists CKD HGB USE SMARTSET 59091 03/02/202503/02, 03/02/2024, 11/29/2023, Additional history exists DTap/Tdap [...] this encounter Medical Devices Implanted Type Area Historical Manuscripts Curator Device Identifier Shelf Expiration Date Model / Serial / Lot Bifurcated Endograft Implanted:Qty: 1 on 03/29/2017 by Lisa Emerson MD [place] [facility] N/A: Aorta ENDOLOGIX 01/13/2018 [id number] / [id number] / Proximal Endograft Implanted:Qty: 1 on 03/29/2017 by Lisa Emerson MD at [place] [facility] N/A: Aorta ENDOLOGIX 01/16/2020 [id number]/[id number] / [id number] / documented as of this encounter Procedures Procedure Name Priority Date/Time Associated Diagnosis Comments ALBUMIN / CREATININE RATIO, URINE Routine 03/02/2024 10:59 AM EDT Hypertensive kidney disease with stage 3a chronic kidney disease (HCC) ANEMIA REFLEX CHEMISTRY HOLD Routine 03/02/2024 10:52 AM EDT Fecal occult blood test positive Anemia, unspecified type Thrombocytopenia (HCC) Other constipation ANEMIA CBC Routine 03/02/2024 10:52 AM EDT Fecal occult blood test positive Anemia, unspecified type Thrombocytopenia (HCC) Other constipation DIFFERENTIAL, AUTOMATED Routine 03/02/2024 10:52 AM EDT Fecal occult blood test positive Anemia, unspecified type Thrombocytopenia (HCC) Other constipation DIFFERENTIAL, AUTOMATED Routine 03/02/2024 10:52 AM EDT Fecal occult blood test positive Anemia, unspecified type Thrombocytopenia (HCC) Other constipation COMPREHENSIVE METABOLIC PANEL Routine 03/02/2024 10:52 AM EDT Hypertensive kidney disease with stage 3a chronic kidney disease (HCC) DIFFERENTIAL, TECHNOLOGIST REVIEW Routine 03/02/2024 10:52 AM EDT Fecal occult blood test positive Anemia, unspecified type Thrombocytopenia (HCC) Other constipation GA ECG ROUTINE ECG W/LEAST 12 LDS I&R ONLY Routine 03/02/2024 10:44 AM EDT Hypertensive kidney disease with stage 3a chronic kidney disease (HCC) 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 documented in this encounter Results * (ABNORMAL) ALBUMIN / CREATININE RATIO, URINE (03/02/2024 10:59 AM EDT) Pathologist [facility] Albumin, Random Urine 3.00 mg/dL 03/02/2024 11:16 PM EDT LABORATORY [facility] Creatinine, Random Urine 63 mg/dL 03/02/2024 11:16 PM EDT LABORATORY [facility] Albumin / Creatinine Ratio, Urine 48(H) <30 mg/g Creat 03/02/2024 11:16 PM EDT LAB[facility]ATORY [facility] Urine Urine specimen / Unknown Non-blood Collection / Unknown 03/02/2024 10:59 AM EDT 03/02/2024 10:59 AM EDT Narrative LAB[facility]ATORY [facility] - 03/02/2024 11:16 PM EDT Normal: <30 mg/g creatinine High: 30-300 mg/g creatinine Very High: >300 mg/g creatinine Nephrotic: >2200 mg/g creatinine Javon Scales DO LAB URINE ORDERABLES Performing Organization Address [facility] de Phone Number LABORATORY [facility] [address] [place] [address] * DIFFERENTIAL, TECHNOLOGIST REVIEW (03/02/2024 10:52 AM EDT) Blood Venous blood specimen / Unknown Venipuncture / Unknown 03/02/2024 10:52 AM EDT 03/02/2024 10:52 AM EDT Makayla FLORES LAB BLOOD ORDER ADONAY Performing Organization Address [facility] Co de Phone Number LAB[facility]ATORY [facility] [address] [place] [address] * ANEMIA REFLEX CHEMISTRY HOLD (03/02/2024 10:52 AM EDT) Blood Venous blood specimen / Unknown Venipuncture / Unknown 03/02/2024 10:52 AM EDT 03/02/2024 10:52 AM EDT Makayla Lopez Fransisco LABOYNP LAB BLOOD ORDER ADONAY LAB[facility]ATORY [facility] [address] [place] [address] * (ABNORMAL) DIFFERENTIAL, AUTOMATED (03/02/2024 10:52 AM EDT) WBC 5.93 4.00 - 10.80 K/uL 03/03/2024 12:36 AM EDT LAB[facility]ATORY [facility] Neutrophils % 45.4 40.0 - 75.0 % 03/03/2024 12:36 AM EDT LAB[facility]ORY [facility] Lymphocytes % 30.4 18.0 - 42.0 % 03/03/2024 12:36 AM EDT LAB[facility]ORY [facility] Monocytes % 23.1(H) 1.0 - 11.0 % 03/03/2024 12:36 AM EDT LAB[facility] Eosinophils % 0.2 0.0 - 6.0 % 03/03/2024 12:36 AM EDT LAB[facility] Basophils % 0.2 0.0 - 2.0 % 03/03/2024 12:36 AM EDT LAB[facility] Immature Granulocytes % 0.7 0.0 - 2.0 % 03/03/2024 12:36 AM EDT LAB[facility]ORY [facility] Absolute Neutrophils 2.70 1.80 - 7.70 K/uL 03/03/2024 12:36 AM EDT LAB[facility]AT[facility] Absolute Lymphocytes 1.80 1.00 - 4.80 K/ul 03/03/2024 12:36 AM EDT LAB[facility]ATORY [facility] Absolute Monocytes 1.37(H) 0.00 - 1.10 K/uL 03/03/2024 12:36 AM EDT LAB[facility]ATORY [facility] Absolute Eosinophils 0.01 0.00 - 0.70 K/uL 03/03/2024 12:36 AM EDT LAB[facility] Absolute Basophils 0.01 0.00 - 0.20 K/uL 03/03/2024 12:36 AM EDT LAB[facility] Absolute Immature Granulocytes 0.04 0.00 - 0.20 K/uL 03/03/2024 12:36 AM EDT [facility] Blood Venous blood specimen / Unknown Venipuncture / Unknown 03/02/2024 10:52 AM EDT 03/02/2024 10:52 AM EDT Makayla LABOYNP LAB BLOOD ORDER ADONAY [facility] [address] [place] [address] * (ABNORMAL) ANEMIA CBC (03/02/2024 10:52 AM EDT) WBC 5.93 4.00 - 10.80 K/uL 03/03/2024 12:36 AM EDT LAB[facility]ORY [facility] RBC 4.23 4.50 - 5.25 M/uL 03/03/2024 12:36 AM EDT LAB[facility] HGB 13.6(L) 14.0 - 16.8 g/dL 03/03/2024 12:36 AM EDT LAB[facility]ATORY [facility] Comment:Anemia reflex testin g triggers on a HGB < 12.0 for Females and HGB < 13.0 for Males in accordance with the WHO Anemia Guidelines HCT 41.2 40.0 - 48.4 % 03/03/2024 12:36 AM EDT LAB[facility]ORY [facility] MCV 97.4 82.0 - 99.5 fL 03/03/2024 12:36 AM EDT LAB[facility]ORY [facility] MCH 32.2 27.0 - 34.0 pg 03/03/2024 12:36 AM EDT LAB[facility] MCHC 33.0 32.0 - 36.0 g/dL 03/03/2024 12:36 AM EDT LAB[facility] RDW 14.9 11.5 - 15.5 % 03/03/2024 12:36 AM EDT LAB[facility] PLT 57(L) 140 - 400 K/uL 03/03/2024 12:36 AM EDT LAB[facility] MPV 14.1 6.6 - 11.1 fL 03/03/2024 12:36 AM EDT LAB[facility]ATORY [facility] nRBCs 0 <=0 /100 WBCs 03/03/2024 12:36 AM EDT LAB[facility]ATORY [facility] Blood Venous blood specimen / Unknown Venipuncture / Unknown 03/02/2024 10:52 AM EDT 03/02/2024 10:52 AM EDT Makayla Lopez Fransisco [employer] LAB BLOOD ORDER ADONAY LAB[facility]ATORY [facility] [address] [place] [address] * (ABNORMAL) COMPREHENSIVE METABOLIC PANEL (03/02/2024 10:52 AM EDT) BUN 19 6 - 20 mg/dL 03/03/2024 12:46 AM EDT LABORATORY C CREATININE 0.9 0.6 - 1.2 mg/dL 03/03/2024 12:46 AM EDT LABORATORY C EGFR 82 >=60 mL/min 03/03/2024 12:46 AM EDT LABORATORY C Comment:eGFR is calculated b ased on the CKD-EPI 2020 equation. SODIUM 139 135 - 146 mmol/L 03/03/2024 12:46 AM EDT LAB[facility] POTASSIUM 4.5 3.5 - 5.1 mmol/L 03/03/2024 12:46 AM EDT LAB[facility] CHLORIDE 105 98 - 107 mmol/L 03/03/2024 12:46 AM EDT [facility] CO2 29 22 - 32 mmol/L 03/03/2024 12:46 AM EDT LAB[facility] ANION GAP 5(L) 7 - 15 mmol/L 03/03/2024 12:46 AM EDT [facility] GLUCOSE 92 70 - 120 mg/dL 03/03/2024 12:46 AM EDT [facility] Albumin 4.0 3.8 - 5.0 g/dL 03/03/2024 12:46 AM EDT [facility] AST 12 10 - 50 U/L 03/03/2024 12:46 AM EDT [facility] Alkaline Phosphatase 66 35 - 130 U/L 03/03/2024 12:46 AM EDT LAB[facility] Bilirubin, Total 1.5(H) <=1.2 mg/dL 03/03/2024 12:46 AM EDT LAB[facility] CALCIUM 8.9 8.4 - 10.2 mg/dL 03/03/2024 12:46 AM EDT LAB[facility] Protein 5.5(L) 6.0 - 8.3 g/dL 03/03/2024 12:46 AM EDT [facility] ALT 12 10 - 50 U/L 03/03/2024 12:46 AM EDT LAB[facility]ATORY [facility] Blood Venous blood specimen / Unknown Venipuncture / Unknown 03/02/2024 10:52 AM EDT 03/02/2024 10:52 AM EDT Javon Scales DO LAB BLOOD ORDERABLES Performing Organization Address [facility] Co de Phone Number LABORATORY [facility] [address] [place] [address] * EKG (03/02/2024 10:44 AM EDT) 03/02/2024 10:4 4 AM EDT Narrative Procedure Note Pérez Snyder DO - 03/02/2024 10:44 AM EDT REASON FOR STUDY: CAD, HTN, Preop;CAD, HTN, Preop CONCLUSIONS: Sinus rhythm with 1st degree AV block Inferior infarct (cited on 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-1997) Anterior infarct (cited on 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-1997) Abnormal ECG When compared with ECG of 02-Jul-2022 14:53, Premature atrial complexes are no longer Present Questionable change in initial forces of Lateral leads Ventricular Rate: 60 Atrial Rate: 60 QRS Duration: 88 QT/QTc: 408/408 ms P-R-T [place]: 0 : -29 : 51 degrees Javon Scales DO EKG Performing Organization Address [facility] Co de Phone Number [facility] documented in this encounter Visit Diagnoses Diagnosis Malignant neoplasm of overlapping sites of bladder (HCC)- Primary Malignant neoplasm of other specified sites of bladder Preoperative general physical examination- Primary Other specified pre-operative examination Malignant neoplasm of overlapping sites of bladder (HCC) Malignant neoplasm of other specified sites of bladder Thrombocytopenia (HCC) Thrombocytopenia, unspecified Hypertensive kidney disease with stage 3a chronic kidney disease (HCC) 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 DYSLIPIDEMIA, GOAL LDL BELOW 100 Other and unspecified hyperlipidemia History of lung cancer Personal history of malignant neoplasm of bronchus and lung Degeneration of intervertebral disc of lumbar region with discogenic back pain and lower extremity pain H/O endovascular stent graft for abdominal aortic aneurysm Blood vessel replaced by other means RORY inhibitor intolerance Other drug allergy Fecal occult blood test positive Nonspecific abnormal finding in stool contents Anemia, unspecified type Other constipation Malignant neoplasm of overlapping sites of bladder (HCC) Malignant neoplasm of other specified sites of bladder documented in this encounter Advance Directives * Full Code (Latest Code Status on File) Date Activated Date Inactivated Comments 03/29/2017 2:46 PM 03/31/2017 3:33 PM This order reflects the patients wishes and were consensually agreed upon. 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
--- OUTSIDE RECORDS SUMMARY | 2024-05-15 19:00 | External Medical Summary ---
Author Name Unknown Address Unknown Organization [id number]:[facility] [address] [place] [id number] Laboratory Report Ordering Provider Test Date Status АННА KAMARA 03/10/2024 14:38:31 Final Observation Date Value Abnormality Reference (Units ) Status WBC, Total 03/10/2024 14:38:31 6.20 4.00-10.8 0 (K/uL) Final RBC 03/10/2024 14:38:31 4.04 4.50-5.25 (M/uL) Final Hemoglobin 03/10/2024 14:38:31 12.8 Below low normal 14 .0-16.8 (g/dL) Final HCT 03/10/2024 14:38:31 37.4 Below low normal 40. 0-48.4 (%) Final MCV 03/10/2024 14:38:31 92.6 82.0-99.5 (fL) Final MCH 03/10/2024 14:38:31 31.7 27.0-34.0 (pg) Final MCHC 03/10/2024 14:38:31 34.2 32.0-36.0 (g/dL) Final RDW 03/10/2024 14:38:31 15.1 11.5-15.5 (%) Final Platelets 03/10/2024 14:38:31 76 Below low normal 140 -400 (K/uL) Final MPV 03/10/2024 14:38:31 13.2 6.6-11.1 ( fL) Final Performing Location [facility] [address] [place] [address]
--- OUTSIDE RECORDS SUMMARY | 2024-05-15 19:00 | External Medical Summary ---
Author Name Unknown Address Unknown Organization [id number]:[facility]ORY [facility] [address] [place] [address] Laboratory Report Ordering Provider Test Date Status АННА KAMARA 03/10/2024 14:38:31 Final Observation Date Value Abnormality Reference (Units ) Status SYNC LEUKOCYTES IN BLOOD BY AUTOMATED COUNT 03/10/2024 14:38:31 6.20 4.00-10.80 (K/uL) Final Segs 03/10/2024 14:38:31 81.5 Above high normal 40.0-75.0 (%) Final Lymphs % 03/10/2024 14:38:31 12.9 Below low normal 18.0-42.0 (%) Final Monos 03/10/2024 14:38:31 5.3 1.0-11.0 (%) Final Eosinophils 03/10/2024 14:38:31 0.0 0.0-6.0 (%) Final Basos 03/10/2024 14:38:31 0.3 0.0-2.0 (%) Final Absolute Segs 03/10/2024 14:38:31 5.05 1.80-7.70 (K/uL) Final Lymphs, absolute 03/10/2024 14:38:31 0.80 Below low normal 1.00-4.80 (K/ul) Final Monos, Abs 03/10/2024 14:38:31 0.33 0.00-1.10 (K/uL) Final Eos, Abs 03/10/2024 14:38:31 0.00 0.00-0.70 (K/uL) Final Basos, Abs 03/10/2024 14:38:31 0.02 0.00-0.20 (K/uL) Final Performing Location LAB[facility]ATORY [facility] [address] [place] [address]
--- OUTSIDE RECORDS SUMMARY | 2024-05-15 19:01 | External Medical Summary | Summary of Care ---
Author Name Unknown Organization [facility] Address [address] [place] [address] Phone [phone] Care Team Providers Care Contract Sheltered Workshop Supervisor Name Role Phone Javon Scales DO Primary Care Provider [phone] Reason for Visit * Reason Comments NEW PATIENT New pt ref by Dr Mitch elizabeth for Hem+ stool. Pt states pink blood on the TP after BM's. Pt takes prune juice and stool softeners dialy to help move his bowels. Mag citrate and Miralax prn. * Evaluate & Treat - Unlimited Visits (Within 30 days (routine)) - Authorized Specialty Diagnoses / Procedures Referred By Roberto gómez Referred To Contact Gastroenterology Diagnoses Heme positive stool Javon Scales, [address] [place] [address] Referral ID Status Reason Start Date Expiration Date Visits Requested Visits Authorized [id number] Authorized Specialty Services Required 01/18/[phone] Encounter Details Date Type Department Care Team (Late st Contact Info) Description 03/02/2024 8:00 AM EDT Office Visit Gastroenterology, [facility] [address] [place] [place] [address] Makayla Moody CRNP [address] [place] [address] Fecal occult blood test positive*; Anemia, unspecified type; Thrombocytopenia (HCC); Other constipation Allergies Active Allergy Reactions Criticality [...] as of this encounter (statuses as of 03/02/2024) Medications Medication Sig Dispensed Refills Start Date [...] S) 8.6-50 MG per tabletIndications :Drug induced constipation,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 Active Saline Nasal [place] 0.65 % Nasal Solution ([place])Indication s:Epistaxis Administer into nostril 2 Sprays in the morning AND 2 Sprays before bedtime. 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 90 Tablet 4 Active Atenolol 25 MG Oral Tablet (Tenormin)Indicat ions:HTN, goal below 140/90,Atheroscle rosis of [place] coronary artery of [place] heart without angina pectoris Take 1 tablet [...] a day as needed (Hemorrhoids). 4 Active MIRALAX PO POWDIndications:O ther constipation Dissolve one heaping tablespoon in 8 ounces of water or juice - one dose per day for constipation 1 Bottle 2 4 03/02/20 24 Discontinued documented as of this encounter (statuses as of 03/02/2024) Active Problems Problem Noted Date Diagnosed Date [...] disease 06/22/2019 History of lung cancer 04/14/2019 Malignant tumor of urinary bladder 09/27/2018 Thrombocytopenia 07/25/2018 Lung nodules 05/09/2018 History of [...] CORONARY ATHEROSCLEROSIS OF UNSPECIFIED TYPE OF VESSEL, [place] OR GRAFT History of bladder cancer documented as of this encounter (statuses as of 03/02/2024) Resolved Problems Problem Noted Date Diagnosed Date Resolved Date Hypertensive kidney disease, stage III 06/05/2020 10/17/2020 Overview: Per CKD protocol Abnormal platelets 04/22/2018 9 Endoleak post (EVAR) [...] stent and embolization 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/10 [facility] 08/09:1 month s/p reintervention for [...] as of this encounter (statuses as of 03/02/2024) Immunizations Name Administration Dates Next Due COVID-19 [...] Sign Reading Time Taken Comments Blood Pressure 142/76 03/02/2024 8:06 AM EDT Pulse 68 03/02/2024 8:06 AM EDT Temperature 36.8 C (98.2 F) 03/02/2024 8:06 AM ED T Respiratory Rate - - Oxygen Saturation - - Inhaled Oxygen Concentration - - Weight 62.1 kg (137 lb) 03/02/2024 8:06 AM EDT Height - - Body Mass Index 23.7 01/12/2024 2:56 PM EDT documented in this encounter Functional [...] * Patient Instructions* Makayla Moody CRNP - 03/02/2024 8:08 AM EDT Start Miralax 1 capful daily Start Metamucil 1 tsp daily with 8-10 oz if cold water Okay to use preparation H (internal or external), should not be used shelter only 1-2 weeks consistently to help with hemorrhoids. Recommend dietary and lifestyle modifications including: Increase in fiber, patient should consume 20-30 g of in soluble fiber daily , (i.e. Metamucil). Drink plenty of fluids (60-80 oz of water per day). Avoid straining with bowel movements. documented in this encounter Progress Notes * Makayla Moody CRNP - 03/02/2024 8:00 AM EDT Images from the original note were not included. 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 Lazar Recurrent bladder cancer Thrombocytopenia CC: Heme-positive stool HPI: 88-year-old male presenting to the gastroenterology office today as a new patient after being referred by his PCP due to a +FOBT. Today the patient presents with his . Overall he is feeling well however he has noticed over the last several months he has been having pink tinged blood on the toilet paper after straining to have a bowel movement. Denies any blood on the stools or in the toilet bowl. Notes stools tend to be hard initially and then soften as he goes. Denies any abdominal pain or cramping. No nausea or vomiting. No unintentional weight loss. Concerns that his hemorrhoids are swollen and bleeding. Patient is compliant with all medications, and offers no side effects. Medications tried for above complaint: Sleep suppositories daily Daily prune juice MiraLax and fiber as needed Social history: Tobacco use: Former ETOH use: None Illicit drug use: None Current Outpatient Medications Medication Sig Dispense Refill CO Q 10 10 MG PO CAPS VITAMIN B-6 100 MG PO TABS 200mg three times per week 0 OMEGA 3 1000 MG PO CAPS 1200 mg daily VITAMIN D3 1000 UNITS PO CAPS Take by mouth daily. MIRALAX PO POWD Dissolve one heaping tablespoon in 8 ounces of water or juice - one dose per day for constipation 1 Bottle 2 fluticasone (FLONASE) 50 MCG/ACT nasal spray Administer [...] mouth 1 Capsule daily . Saline Nasal [place] 0.65 % Nasal Solution ([place]) Administer into nostril 2 Sprays in the morning AND 2 Sprays before bedtime. 30 mL 12 Pravastatin Sodium 20 MG Oral Tablet (Pravachol) TAKE 1 TABLET BY MOUTH ONCE DAILY AT BEDTIME 100 Tablet 3 Aspirin 81 MG Oral Tablet Delayed Release Take 1 Tablet by mouth in the morning. Silodosin 4 MG Oral Capsule ([place]) Take 1 Tablet by mouth in the morning. 90 Capsule 3 amLODIPine Besylate 2.5 MG Oral Tablet (Norvasc) TAKE 1 TABLET BY MOUTH IN THE MORNING 100 Tablet 1 oxyCODONE HCl 5 MG Oral Tablet (Oxy IR) Take 1 Tablet by mouth every 8 hours as needed for Pain, Severe. 90 Tablet 0 Atenolol 25 MG Oral Tablet (Tenormin) Take 1 tablet by mouth twice daily 200 Tablet 1 TUMS 500 MG PO CHEW as needed clotrimazole-betamethasone (LOTRISONE) 1-0.05 % cream APPLY TOPICALLY TO RIGHT LEG AREA TWICE AOSXB125 g 5 Triamcinolone Acetonide 0.1 % External Lotion (Aristocort) Apply to affected area at groin twice daily as needed 60 mL 2 Nitroglycerin 0.4 MG Sublingual Tablet Sublingual (Nitrostat) one tab under tongue as needed for chest pain maximum 3 doses 25 Tablet 5 Ketoconazole 2 % External Shampoo (Nizoral) USE SHAMPOO AT LEAST 3 TIMES PER WEEK, LATHER, WAIT 5 MINUTES THEN RINSE 120 mL 0 Fluocinonide 0.05 % External Solution APPLY SOLUTION TOPICALLY TO AFFECTED AREA OF SCALP NIGHTLY ASNEEDED FOR ITCHING 60 mL 0 Amoxicillin 500 MG Oral Capsule (Amoxil) TAKE FOUR CAPSULES BY MOUTH ONE HOUR BEFORE APPOINTMENT 4 Capsule 0 No current facility-administered medications for this [...] years COLONOSCOPY, DIAGNOSTIC (RECTUM) 10/23/2015 benign polyps, diverticulosis/[facility] CYSTO/URETERO W/LITHOTRIPSY Right 02/28/2019 CYSTOURETHROSCOPY URETEROSCOPY WITH LITHOTRIPSY AND STENT INSERTION performed by Alen Aguilar MD at [place] [facility] CYSTOSCOPY 03-05-2010 CYSTOSCOPY/INSERTION OF STENT Right 12/19/2018 CYSTOURETHROSCOPY WITH INSERTION URETERAL STENT performed by Alen Aguilar MD at [facility] CYSTOSCOPY/TREAT LGE BLADDER TUMOR N/A 10/07/2018 CYSTOURETHROSCOPY WITH FULGURATION LARGE BLADDER TUMOR performed by Alen Aguilar MD at [place] [facility] CYSTOSCOPY/TREAT LGE BLADDER TUMOR N/A 05/22/2021 CYSTOURETHROSCOPY WITH FULGURATION LARGE BLADDER TUMOR performed by Alysa Valente MD at OR [facility] CYSTOURETERO W/BIOPSY Right 12/19/2018 CYSTOURETHROSCOPY URETEROSCOPY WITH BIOPSY AND OR FULGURATION LESION performed by Alen Aguilar MD at OR [facility] CYSTOURETERO W/BIOPSY N/A 02/28/2019 CYSTOURETHROSCOPY URETEROSCOPY WITH BIOPSY AND OR FULGURATION LESION performed by Alen Aguilar MD at OR [facility] CYSTOURETERO W/BIOPSY Bilateral 09/21/2019 CYSTOURETHROSCOPY URETEROSCOPY WITH BIOPSY AND OR FULGURATION LESION performed by Alysa Valente MD at [place] [facility] CYSTOURETHROSCOPY W/BIOPSY N/A 05/22/2021 CYSTOURETHROSCOPY WITH BIOPSY performed by Alysa Valente MD at OR [facility] ENDOVASC ABDO REPR W/BI DEVICE N/A 03/29/2017 ENDOVASCULAR REPAIR ABDOMINAL AORTIC ANEURYSM BIF PROS 1 LIMB performed by Lisa Emerson MD at OR [facility] FLUORO PYELOGRAM RETROGRADE Left 02/28/2019 UROGRAHY, RETROGRADE, WITH OR WITHOUT KUB performed by Alen Aguilar MD at OR [facility] FLUORO PYELOGRAM RETROGRADE Bilateral 09/21/2019 UROGRAHY, RETROGRADE, WITH OR WITHOUT KUB performed by Alysa Valente MD at [place] [facility] INFORMATION open heart surgery [facility] INFORMATION 07/1999 bladder [facility] danella INFORMATION 03/29/2017 model# NTW05-78/116-40 AFX Endovascular AAA Stent Graft Extension INFORMATION 03/29/2017 model# A25-25/T47-R25C AFX Endovascular AAA Stent Limb Extension INJECT DX/THER SUBSTANCE INTERLAMINAR LUMBAR/SACRAL W IMAGE GUIDE 05/25/2019 INJECTION SPINE LUMBAR OR SACRAL performed by Michel Maribel Gil DO at OR [facility] INJECT DX/THER SUBSTANCE INTERLAMINAR LUMBAR/SACRAL W IMAGE GUIDE 06/22/2019 INJECTION SPINE LUMBAR OR SACRAL performed by Michel Gil, DO at OR [facility] INJECT DX/THER SUBSTANCE INTERLAMINAR LUMBAR/SACRAL W IMAGE GUIDE 02/01/2020 INJECTION SPINE LUMBAR OR SACRAL performed by Michel Gil DO at OR [facility] IOF CT GUIDED NEEDLE BIOPSY 03/06/2011 CT GUIDED NEEDLE ASPIRATION BIOPSY performed by DUDLEY WARNER at RADIOLOGY [facility] IR ENDOVASCULAR REPAIR ILIAC 04/17/04 [...] flushed Zocor [Simvastatin] Abdominal pain Review of Systems: See HPI for pertinent positives. All others negative, other than those noted in HPI. Physical Exam: BP 142/76 | Pulse 68 | Temp 36.8 C (98.2 F) | Wt 62.1 kg (137 lb) | BMI 23.70 kg/m | BSA 1.67m GENERAL: Well developed [...] soft and nontender, no masses or hepatosplenomegaly. RECTUM: Multiple skin tags, 1 small nonbleeding external hemorrhoid. + internal hemorrhoids EXTREMITIES: No palmar erythema, no ankle edema, no skin discoloration, no clubbing, no cyanosis. NEURO: No lateralizing findings. Sensory/Motor grossly normal. Lab data/imaging study review: Colonoscopy 10/23/2015 at [facility] Impression/Plan: This is a(n) medically complex 88 year old male who is being evaluated in the office for ongoing care/risk management for the below diagnoses. 1. Fecal occult blood test positive 2. Anemia, unspecified type 3. Thrombocytopenia (HCC) Notable pink tinged blood after straining bowel movements on TP, likely hemorrhoids. Rectal exam performed, multiple skin tags and 1 small nonbleeding external hemorrhoid noted. + likely internal hemorrhoids He is thrombocytopenic (stable) follows with Hematology due to his history of cancer. Platelet count is stable. He is on aspirin given underlying peripheral vascular and cardiac disease. Fecal occult blood testing positive-- Possibly due to lately bleeding hemorrhoids. Patient without symptoms of GI bleeding. Recommend repeat CBC to check for progressive anemia and worsening platelet level. Recommend bowel regimen: Discussed other medications to help with constipation including OTC stools softeners (colace), stimulants (senna vs dulcolax), Miralax, probiotics, IBgard, and fiber supplements (metamucil vs. Benefiber). Patient to start MiraLax 1 capful daily and Metamucil 1 tsp daily. Increase oral hydration 60-80 oz water daily, encouraged daily movement/exercise, healthy dietary choices. Avoid straining with bowel movements. Discussed preparation H use for hemorrhoids The patient agrees to the above plan and will call with additional questions or concerns. ER with all emergencies advised. Follow Up: Return in about 6 weeks (around 04/13/2024). I spent a total of Greater than 55 mins (exact time 60 mins) on the date of service in preparation,delivery, and documentation of the care provided to Cedric Sam Jr. excluding any time spent in the performance of separately billed services or time spent by another provider/QHP. MARK Ortiz [facility] This chart was completed in part utilizing [employer] Voice Recognition Software. Grammatical errors, random [...] Nursing Notes * Lexus Mcbride CMA - 03/02/2024 8:06 AM EDT Chief Complaint Patient presents with NEW PATIENT New pt ref by Dr Scales for Hem+ stool. Pt states pink blood on the TP after BM's. Pt takes prune juice and stool softeners dialy to help move his bowels. Mag citrate and Miralax prn. documented in this encounter Plan of Treatment Upcoming Encounters Date Type Department Care Team (Latest Contact Info) Description 03/02/2024 10:00 AM EDT Office Visit Family Practice [address] [place] [address] [address] [place] [address] Javon Scales, [address] [place] [address] 03/13/2024 12:07 PM EDT Hospital Encounter [place] [facility], OPERATING ROOM [facility], [facility] [address] [place] [phone] Jose Lisa MD [address] [place] [address] 03/13/2024 12:07 PM EDT - 03/13/2024 1:35 PM EDT Surgery OR [facility], OPERATING ROOM [facility], [facility] [address] [place] [phone] Jose Lisa MD [address] [place] [address] CYSTOURETHROSCOPY WITH FULGURATION SMALL BLADDER TUMOR 04/06/2024 11:00 AM EDT Office Visit Gastroenterology, [facility] [address] [facility] [place] [address] [facility] [address] [facility] [address] 04/21/2024 2:20 PM EST Office Visit Family Practice [address] [place] [address] [address] [place] [phone] Javon Scales, [address] [place] [address] 05/03/2024 1:45 PM EST Office Visit Urology, [facility] [address] [place] [address] Baudilio Rosas MD [address] [place] [address] 07/28/2024 1:00 PM EST Procedure Only Urology, [facility] [address] [place] [address] Jose Lisa MD [address] [place] [address] 08/08/2024 2:45 PM EST Office Visit Hematology/[facility] [address] [place] [address] Martir Lazar MD [address] [place] [address] 09/05/2024 4:00 PM EDT Office Visit Cardiology, [facility] [address] [place] [address] Sridhar Fay MD [address] [place] [address] 09/26/2024 11:00 AM EDT Nurse Only Ancillary [facility] [address] [place] [address] College, Nurse Annual Wellness Visit [address] [address] Scheduled Orders Name Type Priority Associated Diagnoses Orde r Schedule CBC WITH WBC DIFFERENTIAL AND ANEMIA REFLEX WORKUP Lab Routine Fecal occult blood test positive Anemia, unspecified type Thrombocytopenia (HCC) Other constipation Expected: 03/02/2024, Expires: 03/02/2025 Scheduled Procedures Name Priority Associated Diagnoses Date/Ti me CYSTOURETHROSCOPY WITH FULGURATION SMALL BLADDER TUMOR Malignant neoplasm of overlapping sites of bladder (HCC) 03/13/2024 12:07 PM EDT Health Maintenance Due Date Last Done Comments COVID-19 Vaccine ( season) 2024 05/19/2022, 04/24/2021, 09/06/2020, Additional history exists Influenza Vaccine (FLU shot) (#1) 2024 03/11/2023, 02/23/2022, 02/19/2021, Additional history exists Albumin/Creatinine Ratio 04/26/2024 023, 07/13/2022, 07/08/2021 CKD PHOS USE SMARTSET 59051 07/27/2024/, 02/25/2022, 01/29/2021 Adult Wellness Visit 09/20/2024 09/21/2023, 01/30/2022, 01/29/2021 Depression Screening 09/20/2024 09/21/2023 CKD HGB USE SMARTSET [id number] 11/28/202411/28, 11/29/2023, 07/27/2023, Additional history exists DTap/Tdap Vaccines (3 - Td or Tdap) 04/26/2033 04/26/2023, 02/19/2013, 08/11/2007 Pneumococcal Vaccine: 65+ Years Completed 10/16/2014, 05/13/2006, 06/07/1997 Zoster Vaccines Completed 08/16/2019, 05/07, 05/23/2007 HPV (Gardasil) Vaccine Aged Out No lo nger eligible based on patient's age to complete this topic Hepatitis B Vaccine Aged Out No longe r eligible based on patient's age to complete this topic MENINGOCOCCAL (MENACTRA/MENVEO) Aged Out No longer eligible based on patient's age to complete this topic documented as of this encounter Medical Devices Implanted Type Area Dry Heat Room Attendant Device Identifier Shelf Expiration Date Model / Serial / Lot Bifurcated Endograft Implanted:Qty: 1 on 03/29/2017 by Lisa Emerson MD at OR [facility] N/A: Aorta ENDOLOGIX 01/13/2018 [id number] / [id number] / Proximal Endograft Implanted:Qty: 1 on 03/29/2017 by Lisa Emerson MD at OR [facility] N/A: Aorta ENDOLOGIX 01/16/2020 [id number] / [id number] / documented as of this encounter Visit Diagnoses Diagnosis Malignant neoplasm of overlapping sites of bladder (HCC)- Primary Malignant neoplasm of other specified sites of bladder Fecal occult blood test positive- Primary Nonspecific abnormal finding in stool contents Anemia, unspecified type Thrombocytopenia (HCC) Thrombocytopenia, unspecified Other constipation Malignant neoplasm of overlapping sites of bladder (HCC) Malignant neoplasm of other specified sites of bladder documented in this encounter Advance Directives * Full Code (Latest Code Status on File) Date Activated Date Inactivated Comments 03/29/2017 2:46 PM 03/31/2017 3:33 PM This order reflects the patients wishes and were consensually agreed upon. 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
--- OUTSIDE RECORDS SUMMARY | 2024-05-15 19:01 | External Medical Summary ---
Author Name Unknown Address Unknown Organization K01:[facility] [place] - [address] [place] [address] Laboratory Report Ordering Provider Test Date Status LENNY MARTINEZ 02/25/2024 14:27:39 Final Observation Date Value Abnormality Reference (Units) Status Bacteria identified in Specimen by Culture 02/25/2024 14:27:39 No significant growth Final Test: Culture, Urine, Quanti tative
Specimen Source: Urine, Clean Catch
Specimen Type: Urine
Specimen Date: 02/25/2024 1427
Result Date: 02/26/2024 1844
Result Status: Final result
Resulting Lab: [facility] [place]
[address]
[place] [address]

CULTURE

No significant growth

null Performing Location [facility] [place] - [address] [place] [address]
--- OUTSIDE RECORDS SUMMARY | 2024-05-15 19:01 | External Medical Summary | Summary of Care ---
Author Name Unknown Organization [facility] Address [address] [place] [address] Phone [phone] Care Team Providers Care Pbx Technician Name Role Phone Javon Scales Apolonia ARMENTA Primary Care Provider [phone] Reason for Visit * Reason Onset Date Comments Surgery 02/25/2024 Urine specimen Encounter Details Date Type Department Care Team (Late st Contact Info) Description 02/25/2024 Telephone Urology, [place] [address] [place] [address] Jose Lisa MD [address] [place] [address] Surgery (Urine specimen) Allergies Active Allergy Reactions Criticality Noted Date Comments Ciprofloxacin 09/27/2018 Stomach upset Finasteride Other (Please comment) 09/21/2023 Enlarged breast tissue Tamsulosin Hcl 01/14/2010 collapse Levofloxacin Other (Please comment) 03/05/2017 Hx of achilles tendon tear Atorvastatin Abdominal pain 12/23/2015 Lisinopril 03/11/2007 Caused pt to have blurred vision and become very flushed Simvastatin Abdominal pain 12/23/2015 documented as of this encounter (statuses as of 02/25/2024) Medications Medication Sig Dispensed Refills Start Date End Date Status CO Q 10 10 MG PO CAPS Active VITAMIN B-6 100 MG PO TABS 200mg three times per week 0 12/12/2007 Active OMEGA 3 1000 MG PO CAPS 1200 mg daily Active TUMS 500 MG PO CHEW as needed Activ e VITAMIN D3 1000 UNITS PO CAPS Take by mouth daily. 06/14/2013 Active MIRALAX PO POWDIndications:Oth er constipation Dissolve one heaping tablespoon in 8 ounces of water or juice - one dose per day for constipation 1 Bottle 2 05/14/2014 Active fluticasone (FLONASE) 50 MCG/ACT nasal sprayIndications:Br [...] 1 Capsule daily . Active Saline Nasal [place] 0.65 % Nasal Solution ([place])Indications: Epistaxis Administer into nostril 2 Sprays in the morning AND 2 Sprays before bedtime. 30 mL 12 07/29/2021 Active Nitroglycerin 0.4 MG Sublingual Tablet Sublingual (Nitrostat)Indicati ons:Atherosclerosis of [place] coronary artery of [place] heart without angina pectoris one tab under [...] THE MORNING 100 Tablet 1 01/18/2024 Active oxyCODONE HCl 5 MG Oral Tablet (Oxy IR)Indications:Lumb ar degenerative disc disease,Spinal stenosis of lumbar region at multiple levels,Chronic bilateral low back pain with bilateral sciatica Take 1 Tablet by mouth every 8 hours as needed for Pain, Severe. 90 Tablet 02/04/2024 Active Atenolol 25 MG Oral Tablet (Tenormin)Indicatio ns:HTN, goal below 140/90,Atherosclero sis of [place] coronary artery of [place] heart without angina pectoris Take 1 tablet by mouth twice daily 200 Tablet 1 02/08/2024 Active documented as of this encounter (statuses as of 02/25/2024) Active Problems Problem Noted Date Diagnosed Date [...] CORONARY ATHEROSCLEROSIS OF UNSPECIFIED TYPE OF VESSEL, [place] OR GRAFT History of bladder cancer documented as of this encounter (statuses as of 02/25/2024) Resolved Problems Problem Noted Date Diagnosed Date [...] and embolization 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/10 [facility] [place] 08/09:1 month s/p reintervention [...] as of this encounter (statuses as of 02/25/2024) Immunizations Name Administration Dates Next Due COVID-19 mRNA, LNP-s, No Pre serve, 2-Dose Series ([employer]) 04/24/2021,09/06/2020,08/09/2020 Covid-19, Mrna, Lnp-s, Pf, B ivalent, 30 Mcg, IM, 12 yrs and above ([employer]) 05/19/2022 H1N1 2009 Influenza, IM 05/28/2009 Influenza, [...] Miscellaneous Notes * Telephone Encounter - Gaby Ray OSA - 02/25/2024 10:04 AM EDT Called and spoke with pt to ask that he supple a urine specimen on 02/28/24 for procedure scheduled on 03/13/24 documented in this encounter Plan of Treatment Upcoming Encounters Date Type Department Care Team (Late st Contact Info) Description 03/02/2024 8:00 AM EDT Office Visit Gastroenterology, [facility] 132 [place] [address] Makayla Moody CRNP 132 [place] [address] 03/13/2024 Hospital Encounter OR [facility], OPERATING ROOM [facility], [facility] [address] [place] [phone] Jose Lisa MD [address], [place] [phone] 04/21/2024 2:20 PM EST Office Visit Family Practice [address] [place] [address] [address] [place] [address] Javon Scales, [address] [place] [address] 05/03/2024 1:45 PM EST Office Visit Urology, [place] [address] [place] [address] Baudilio Rosas MD [address] [place] [address] 07/28/2024 1:00 PM EST Procedure Only Urology, [place] [address], [place] [id number] Jose Lisa MD [facility] [place] [address] 08/08/2024 2:45 PM EST Office Visit Hematology/[facility] 200 [facility] [place] [address] Martir Lazar MD 200 [facility] [place] [address] 09/05/2024 4:00 PM EDT Office Visit Cardiology, [facility] 132 [facility] [place] [address] Sridhar Fay MD 132 [facility] [place] [address] 09/26/2024 11:00 AM EDT Nurse Only Ancillary 65 [facility] 293 [place] [address] College, Nurse Annual Wellness Visit 65 [facility] 293 [place] [address] Scheduled Procedures Name Priority Associated Diagnoses Date/Ti me CYSTOURETHROSCOPY WITH FULGU RATION SMALL BLADDER TUMOR Malignant neoplasm of overlapping sites of bladder (HCC) Health Maintenance Due Date Last Done Comments COVID-19 Vaccine ( season) 2024 05/19/2022, 04/24/2021, 09/06/2020, Additional history exists Influenza Vaccine (FLU shot) (#1) 2024 03/11/2023, 02/23/2022, 02/19/2021, Additional history exists Albumin/Creatinine Ratio 04/26/2024 023, 07/13/2022, 07/08/2021 CKD PHOS USE SMARTSET 55062 07/27/2024 02/, 02/25/2022, 01/29/2021 Adult Wellness Visit 09/20/2024 09/21/2023, 01/30/2022, 01/29/2021 Depression Screening 09/20/2024 09/21/2023 CKD HGB USE SMARTSET 32971 11/28/202411/28, 11/29/2023, 07/27/2023, Additional history exists DTap/Tdap [...] this encounter Medical Devices Implanted Type Area Mid Level Project Manager Device Identifier Shelf Expiration Date Model / Serial / Lot Bifurcated Endograft Implanted:Qty: 1 on 03/29/2017 by Lisa Emerson MD at OR [facility] N/A: Aorta ENDOLOGIX 01/13/2018 [id number]/11 6-40 / [id number] / Proximal Endograft Implanted:Qty: 1 on 03/29/2017 by Lisa Emerson MD at OR [facility] N/A: Aorta ENDOLOGIX 01/16/2020 A25-25/C75- [id number] / [id number] / documented as of this encounter Advance Directives * Full Code (Latest Code Status on File) Date Activated Date Inactivated Comments 03/29/2017 2:46 PM 03/31/2017 3:33 PM This order reflects the patients wishes and were consensually agreed upon. Care Teams Pbx Technician Relationship Specialty Start Date End Date Javon Scales DO [address] [place] [address] PCP - General Internal Medicine 11/19/23 documented as of this encounter
--- OUTSIDE RECORDS SUMMARY | 2024-05-15 19:01 | External Medical Summary | Summary of Care ---
Author Name Unknown Organization [facility] Address [address] [place] [address] Phone [phone] Care Team Providers Care Machine Operator Helper Name Role Phone MitchJavon elizabeth Apolonia ARMENTA Primary Care Provider [phone] Encounter Details Date Type Department Care Team (Late st Contact Info) Description 02/25/2024 Telephone Urology, [place] [address] [place] [address] Jose Lisa MD [address] [place] [address] Allergies Active Allergy Reactions Criticality [...] 1 Capsule daily . Active Saline Nasal [place] 0.65 % Nasal Solution ([place])Indications: Epistaxis Administer into nostril 2 Sprays in the morning AND 2 Sprays before bedtime. 30 mL 12 07/29/2021 Active Nitroglycerin 0.4 MG Sublingual Tablet Sublingual (Nitrostat)Indicati ons:Atherosclerosis of [place] coronary artery of [place] heart without angina pectoris one tab under [...] (Tenormin)Indicatio ns:HTN, goal below 140/90,Atherosclero sis of [place] coronary artery of [place] heart without angina pectoris Take 1 tablet [...] CORONARY ATHEROSCLEROSIS OF UNSPECIFIED TYPE OF VESSEL, [place] OR GRAFT History of bladder cancer documented [...] stent and embolization 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/10 [facility] 08/09:1 month s/p reintervention for his R [...] mRNA, LNP-s, No Pre serve, 2-Dose Series ([email or web address]) 04/24/2021,09/06/2020,08/09/2020 Covid-19, Mrna, Lnp-s, Pf, B ivalent, [...] Miscellaneous Notes * Telephone Encounter - Jose Lisa MD - 02/25/2024 9:55 AM EDT Reviewed urine cytology results with patient. Discussed need for bladder biopsy to confirm cancer recurrence. He was in agreement. Please schedule for 03/13/2024. Case order placed. He will need urine culture 1 week prior documented in this encounter Plan of Treatment Upcoming Encounters Date Type Department Care Team (Late st Contact Info) Description 03/02/2024 8:00 AM EDT Office Visit Gastroenterology, [facility] 132 [place] [address] FransiscoMakayla gotti CRNP 132 [place] [address] 03/13/2024 Hospital Encounter OR [facility] OPER[place] ROOM [facility], [facility] [address] [place] [phone] Jose Lisa MD [address] [place] [address] 04/21/2024 2:20 PM EST Office Visit Family Practice [address] [place] [address] [address] [place] [address] Javon Scales, 293 [place] [address] 05/03/2024 1:45 PM EST Office Visit Urology, [place] 100 [place] [address] Baudilio Rosas MD [address] [place] [address] 07/28/2024 1:00 PM EST Procedure Only Urology, [place] 100 [place], [place] [address] Jose Lisa MD [address] [place] [address] 08/08/2024 2:45 PM EST Office Visit Hematology/Oncology [facility] 200 [place] [address] Martir Lazar MD 200 [facility] [address] 09/05/2024 4:00 PM EDT Office Visit Cardiology, [facility] 132 [facility] [place] [address] Sridhar Fay MD [facility] [address] 09/26/2024 11:00 AM EDT Nurse Only Ancillary 65 [facility] 293 [place] [address] College, Nurse Annual Wellness Visit [address] [place] [address] Scheduled Orders Name Type Priority Associated Diagnoses Orde r Schedule CULTURE, URINE, QUANTITATIVE Lab Routine Malignant neoplasm of overlapping sites of bladder (HCC) Expected: 02/26/2024, Expires: 02/24/2025 Scheduled Procedures Name Priority Associated Diagnoses Date/Ti me CYSTOURETHROSCOPY WITH FULGU RATION SMALL BLADDER TUMOR Malignant neoplasm of overlapping sites of bladder (HCC) Health Maintenance Due Date Last Done Comments COVID-19 Vaccine ( season) 2024 05/19/2022, 04/24/2021, 09/06/2020, Additional history exists Influenza Vaccine (FLU shot) (#1) 2024 03/11/2023, 02/23/2022, 02/19/2021, Additional history exists Albumin/Creatinine Ratio 04/26/2024 023, 07/13/2022, 07/08/2021 CKD PHOS USE SMARTSET 90918 07/27/202407/09, 02/25/2022, 01/29/2021 Adult Wellness Visit 09/20/2024 09/21/2023, 01/30/2022, 01/29/2021 Depression Screening 09/20/2024 09/21/2023 CKD HGB USE SMARTSET 94743 11/28/202411/28, 11/29/2023, 07/27/2023, Additional history exists DTap/Tdap [...] this encounter Medical Devices Implanted Type Area Used Car Lot Attendant Device Identifier Shelf Expiration Date Model / Serial / Lot Bifurcated Endograft Implanted:Qty: 1 on 03/29/2017 by Lisa Emerson MD at [place] [facility] N/A: Aorta ENDOLOGIX 01/13/2018 [id number]/11 6-40 / [id number] / Proximal Endograft Implanted:Qty: 1 on 03/29/2017 by Lisa Emerson MD at OR [facility] N/A: Aorta ENDOLOGIX 01/16/2020 A25-25/C75- [id number] / [id number] / documented as of this encounter Visit [...] and were consensually agreed upon. Care Teams Machine Operator Helper Relationship Specialty Start Date End Date Javon Scales DO [address] [place] [facility] [place] [address] PCP - General Internal Medicine 11/19/23 documented as of this encounter
--- OUTSIDE RECORDS SUMMARY | 2024-05-15 19:01 | External Medical Summary ---
Author Name Unknown Address Unknown Organization K01:[facility]ORY [facility] [place] - [address] [facility] [address] Laboratory Report Ordering Provider Test Date Status DAMARI VELEZ 03/02/2024 10:52:33 Final Observation Date Value Abnormality Reference (Units ) Status SYNC LEUKOCYTES IN BLOOD BY AUTOMATED COUNT 03/02/2024 10:52:33 5.93 4.00-10.80 (K/uL) Final Segs 03/02/2024 10:52:33 45.4 40.0-75.0 (%) Final Lymphs % 03/02/2024 10:52:33 30.4 18.0-42.0 (%) Final Monos 03/02/2024 10:52:33 23.1 Above high normal 1.0-11.0 (%) Final Eosinophils 03/02/2024 10:52:33 0.2 0.0-6.0 (%) Final Basos 03/02/2024 10:52:33 0.2 0.0-2.0 (%) Final Immature Granulocyte, Percent 03/02/2024 10:52:33 0.7 0.0-2.0 (%) Final Absolute Segs 03/02/2024 10:52:33 2.70 1.80-7.70 (K/uL) Final Lymphs, absolute 03/02/2024 10:52:33 1.80 1.00-4.80 (K/ul) Final Monos, Abs 03/02/2024 10:52:33 1.37 Above high normal 0.00-1.10 (K/uL) Final Eos, Abs 03/02/2024 10:52:33 0.01 0.00-0.70 (K/uL) Final Basos, Abs 03/02/2024 10:52:33 0.01 0.00-0.20 (K/uL) Final Immature Granulocytes, Number 03/02/2024 10:52:33 0.04 0.00-0.20 (K/uL) Final Performing Location [facility] [place] - [facility] [place] [address]
--- OUTSIDE RECORDS SUMMARY | 2024-05-15 19:01 | External Medical Summary | Summary of Care ---
Author Name Unknown Organization [facility] Address [address] [place] [address] Phone [phone] Care Team Providers Care Phd Internship Name Role Phone Javon Scales DO Primary Care Provider [phone] Reason for Visit * Reason Onset Date Comments Advice 02/28/2024 surgery Encounter Details Date Type Department Care Team (Late st Contact Info) Description 02/28/2024 Telephone Family Practice 65 [facility] [place] [address] [place] [phone] Javon Scales DO [address] [place], [place] [phone] Advice (surgery) Allergies Active Allergy Reactions Criticality Noted Date Comments Ciprofloxacin 09/27/2018 Stomach upset Finasteride Other (Please comment) 09/21/2023 Enlarged breast tissue Tamsulosin Hcl 01/14/2010 collapse Levofloxacin Other (Please comment) 03/05/2017 Hx of achilles tendon tear Atorvastatin Abdominal pain 12/23/2015 Lisinopril 03/11/2007 Caused pt to have blurred vision and become very flushed Simvastatin Abdominal pain 12/23/2015 documented as of this encounter (statuses as of 02/29/2024) Medications Medication Sig Dispensed Refills Start Date [...] 1 Capsule daily . Active Saline Nasal [place] 0.65 % Nasal Solution ([place])Indications: Epistaxis Administer into nostril 2 Sprays in the morning AND 2 Sprays before bedtime. 30 mL 12 07/29/2021 Active Nitroglycerin 0.4 MG Sublingual Tablet Sublingual (Nitrostat)Indicati ons:Atherosclerosis of [place] coronary artery of [place] heart without angina pectoris one tab under [...] (Tenormin)Indicatio ns:HTN, goal below 140/90,Atherosclero sis of [place] coronary artery of [place] heart without angina pectoris Take 1 tablet by mouth twice daily 200 Tablet 1 02/08/2024 Active documented as of this encounter (statuses as of 02/29/2024) Active Problems Problem Noted Date Diagnosed Date [...] CORONARY ATHEROSCLEROSIS OF UNSPECIFIED TYPE OF VESSEL, [place] OR GRAFT History of bladder cancer documented as of this encounter (statuses as of 02/29/2024) Resolved Problems Problem Noted Date Diagnosed Date [...] stent and embolization 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/10 [facility] 08/09:1 month s/p reintervention for his R [...] as of this encounter (statuses as of 02/29/2024) Immunizations Name Administration Dates Next Due COVID-19 mRNA, LNP-s, No Pre serve, 2-Dose Series ([place]) 04/24/2021,09/06/2020,08/09/2020 Covid-19, Mrna, Lnp-s, Pf, B ivalent, 30 Mcg, IM, 12 yrs and above ([place]) 05/19/2022 H1N1 2009 Influenza, IM 05/28/2009 Influenza, [...] Miscellaneous Notes * Telephone Encounter - Christa Paredes, FLY - 02/29/2024 9:49 AM EDT Appt 03/02/2024 at 10 after Gastro appt * Telephone Encounter - Kelli Mota LPN - 02/28/2024 4:07 PM EDT Please call and schedule a pre op visit, will discuss meds at that time. Thank you * Telephone Encounter - Christa Paredes OSA - 02/28/2024 4:02 PM EDT Has up coming surgery? Wants to know what meds he is to quit taking and when Please advise See manolo david note documented in this encounter Plan of Treatment Upcoming Encounters Date Type Department Care Team (Latest Contact Info) Description 03/02/2024 8:00 AM EDT Office Visit Gastroenterology, [facility] 132 [facility] [address] Makayla Moody CRNP 132 [facility] [address] 03/02/2024 10:00 AM EDT Office Visit Family Practice [address] [place] [address] [address] [place] [address] Javon Scales DO [address] [place] [address] 03/13/2024 12:07 PM EDT Hospital Encounter OR [facility] OPERATING ROOM [facility], [facility] [address] [place] [phone] Jose Lisa MD [address] [place], [place] [address] 03/13/2024 12:07 PM EDT - 03/13/2024 1:35 PM EDT Surgery OR [facility], OPERATING ROOM [facility], [facility] [address] [place] [phone] Jose Lisa MD [address] [place] [address] CYSTOURETHROSCOPY WITH FULGURATION SMALL BLADDER TUMOR 04/21/2024 2:20 PM EST Office Visit Family Practice 65 [facility] [address] [place] [address] Javon Scales, [address] [place] [address] 05/03/2024 1:45 PM EST Office Visit Urology, [place] [address] [place] [address] Baudilio Rosas MD [address] [place] [address] 07/28/2024 1:00 PM EST Procedure Only Urology, [place] [address] [place] [address] Jose Lisa MD [address] [place] [address] 08/08/2024 2:45 PM EST Office Visit Hematology/Oncolo gy [facility] [address] [place] [address] Martir Lazar MD [address] [place] [address] 09/05/2024 4:00 PM EDT Office Visit Cardiology, [facility] 132 [place] [address] Sridhar Fay MD 132 [facility] [place] [address] 09/26/2024 11:00 AM EDT Nurse Only Ancillary [address] [facility], [place] 293 [place] [address] College, Nurse Annual Wellness Visit [address] [facility] 293 [place] [address] Scheduled Procedures Name Priority Associated Diagnoses Date/Ti [...] 023, 07/13/2022, 07/08/2021 CKD PHOS USE SMARTSET 87439 07/27/202407/09, 02/25/2022, 01/29/2021 Adult Wellness Visit 09/20/2024 09/21/2023, 01/30/2022, 01/29/2021 Depression Screening 09/20/2024 09/21/2023 CKD HGB USE SMARTSET 82420 11/28/202411/28, 11/29/2023, 07/27/2023, Additional history exists DTap/Tdap [...] this encounter Medical Devices Implanted Type Area Virologist Device Identifier Shelf Expiration Date Model / Serial / Lot Bifurcated Endograft Implanted:Qty: 1 on 03/29/2017 by Lisa Emerson MD at [place] [facility] N/A: Aorta ENDOLOGIX 01/13/2018 [id number] 6-40 / [id number] / Proximal Endograft Implanted:Qty: 1 on 03/29/2017 by Lisa Emerson MD at OR [facility] N/A: Aorta ENDOLOGIX 01/16/2020 A25-25/C75- O20V / [id number] / documented as of this encounter Advance Directives * Full Code (Latest Code Status on File) Date Activated Date Inactivated Comments 03/29/2017 2:46 PM 03/31/2017 3:33 PM This order reflects the patients wishes and were consensually agreed upon. Care Teams Phd Internship Relationship Specialty Start Date End Date Javon Scales DO 293 [facility] [address] PCP - General Internal Medicine 11/19/23 documented as of this encounter
--- OUTSIDE RECORDS SUMMARY | 2024-05-15 19:01 | External Medical Summary ---
Author Name Unknown Address Unknown Organization K01:[facility] [place] [address] [place] [address] Laboratory Report Ordering Provider Test Date Status DAMARI VELEZ 03/02/2024 10:52:33 Final Observation Date Value Abnormality Reference (Units ) Status WBC, Total 03/02/2024 10:52:33 5.93 4.00-10.8 0 (K/uL) Final RBC 03/02/2024 10:52:33 4.23 4.50-5.25 (M/uL) Final Hemoglobin 03/02/2024 10:52:33 13.6 Below low normal 14 .0-16.8 (g/dL) Final Anemia reflex testing trigge rs on a HGB < 12.0 for Females and HGB < 13.0 for Males in accordance with the WHO Anemia Guidelines HCT 03/02/2024 10:52:33 41.2 40.0-48.4 (%) Final MCV 03/02/2024 10:52:33 97.4 82.0-99.5 (fL) Final MCH 03/02/2024 10:52:33 32.2 27.0-34.0 (pg) Final MCHC 03/02/2024 10:52:33 33.0 32.0-36.0 (g/dL) Final RDW 03/02/2024 10:52:33 14.9 11.5-15.5 (%) Final Platelets 03/02/2024 10:52:33 57 Below low normal 140 -400 (K/uL) Final MPV 03/02/2024 10:52:33 14.1 6.6-11.1 ( fL) Final Nucleated erythrocytes/100 leukocytes [Ratio] in Blood by Automated count 03/02/2024 10:52:33 0 <=0 (/100 WBCs) Final Performing Location LAB[facility]ORY [facility] [place] - [address] [place] [address]
--- OUTSIDE RECORDS SUMMARY | 2024-05-15 19:01 | External Medical Summary ---
Author Name Unknown Address Unknown Organization K01:LABORATORY [facility] [place] - [address] [facility] [address] Laboratory Report Ordering Provider Test Date Status АННА KAMARA 03/02/2024 10:52:33 Final Observation Date Value Abnormality Reference (Units ) Status BUN 03/02/2024 10:52:33 19 6-20 (mg/dL) Final Creatinine 03/02/2024 10:52:33 0.9 0.6-1.2 (mg/dL) Final Glomerular filtration rate/1.73 sq M.predicted [Volume Rate/Area] in Serum, Plasma or Blood by Creatinine-based formula (CKD-EPI) 03/02/2024 10:52:33 82 >=60 (mL/min) Final eGFR is calculated based on the CKD-EPI 2020 equation. Sodium 03/02/2024 10:52:33 139 135-146 (m mol/L) Final Potassium 03/02/2024 10:52:33 4.5 3.5-5.1 (m mol/L) Final Cl 03/02/2024 10:52:33 105 98-107 (mm ol/L) Final CO2 03/02/2024 10:52:33 29 22-32 (mmo l/L) Final Anion gap 03/02/2024 10:52:33 5 Below low normal 7-1 5 (mmol/L) Final Glucose 03/02/2024 10:52:33 92 70-120 (mg /dL) Final Albumin 03/02/2024 10:52:33 4.0 3.8-5.0 (g /dL) Final AST (Aspartate aminotransferase) 03/02/2024 10:52:33 12 10-50 (U/L) Fin al Alk Phos 03/02/2024 10:52:33 66 35-130 (U/ L) Final Bilirubin, Total 03/02/2024 10:52:33 1.5 Above high no rmal <=1.2 (mg/dL) Final Calcium 03/02/2024 10:52:33 8.9 8.4-10.2 ( mg/dL) Final Protein 03/02/2024 10:52:33 5.5 Below low normal 6.0 -8.3 (g/dL) Final ALT (Alanine aminotransferase) 03/02/2024 10:52:33 12 10-50 (U/L) Michael foley Performing Location LABORATORY [facility] [place] - [address] [facility] [address]
--- OUTSIDE RECORDS SUMMARY | 2024-05-15 19:01 | External Medical Summary ---
Author Name Unknown Address Unknown Organization K01:[facility] [place] [address] [place] [address] Laboratory Report Ordering Provider Test Date Status АННА KAMARA 03/02/2024 10:59:36 Final Normal: <30 mg/g creatinine< br/>High: 30-300 mg/g creatinine
Very High: >300 mg/g creatinine
Nephrotic: >2200 mg/g creatinine Observation Date Value Abnormality Reference (Units ) Status Albumin, Urine 03/02/2024 10:59:36 3.00 (mg/dL) Final Creatinine, Urine 03/02/2024 10:59:36 63 (mg/dL) Final Albumin/Creatinine [Mass Ratio] in Urine 03/02/2024 10:59:36 48 Above high normal <30 (mg/g Creat) Final Performing Location [facility] [place] [address] [place] [address]
--- OUTSIDE RECORDS SUMMARY | 2024-05-15 19:01 | External Medical Summary | Summary of Care ---
Author Name Unknown Organization [facility] Address [address] [place] [address] Phone [phone] Care Team Providers Care Hr Director Name Role Phone Mitchclara Javon Barksdale DO Primary Care Provider Encounter Details Date Type Department Care Team (Late st Contact Info) Description 02/25/2024 2:15 PM EDT Laboratory Lab 65 [facility] [address] [place] [address] [place], Lab [address] [place] [id number] Malignant neoplasm of overlapping sites of bladder (HCC) Allergies Active Allergy Reactions Criticality Noted [...] 1 Capsule daily . Active Saline Nasal [place] 0.65 % Nasal Solution ([place])Indications: Epistaxis Administer into nostril 2 Sprays in the morning AND 2 Sprays before bedtime. 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 one tab under [...] (Tenormin)Indicatio ns:HTN, goal below 140/90,Atherosclero sis of j[place] coronary artery of j[place] heart without angina pectoris Take 1 tablet [...] CORONARY ATHEROSCLEROSIS OF UNSPECIFIED TYPE OF VESSEL, [place] OR GRAFT History of bladder cancer documented [...] stent and embolization 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 [facility] [place] [...] mRNA, LNP-s, No Pre serve, 2-Dose Series (iCabbi) 04/24/2021,09/06/2020,08/09/2020 Covid-19, Mrna, Lnp-s, Pf, B ivalent, 30 Mcg, IM, 12 yrs and above (iCabbi) 05/19/2022 H1N1 2009 Influenza, IM 05/28/2009 Influenza, [...] of this encounter Progress Notes * Kelli Mota LPN - 02/25/2024 2:28 PM EDT Urine per order. documented in this encounter Plan of Treatment Upcoming Encounters Date Type Department Care Team (Latest Contact Info) Description 03/02/2024 8:00 AM EDT Office Visit Gastroenterology, [facility] 132 [facility] [place] [address] Makayla Moody CRNP 132 [facility] [place] [address] 03/13/2024 12:27 PM EDT Hospital Encounter [place] [facility] [place] [facility] [place] [facility] [address] [place] [phone] Jose Lisa MD [address] [place], [place] [id number] 03/13/2024 12:27 PM EDT - 03/13/2024 1:55 PM EDT Surgery [place] [facility] [place] [facility] [place] [facility] [address] [place] [phone] Jose Lisa MD [address] [place] [address] CYSTOURETHROSCOPY WITH FULGURATION SMALL BLADDER TUMOR 04/21/2024 2:20 PM EST Office Visit Family Practice [address] [place] [address] [address] [place] [address] Javon Scales, [address] [place] [address] 05/03/2024 1:45 PM EST Office Visit Urology, [place] [address] [place], [place] [phone] Baudilio Rosas MD [address] [place], [place] [address] 07/28/2024 1:00 PM EST Procedure Only Urology, [place] [address] [place] [address] Jose Lisa MD [address] [place] [address] 08/08/2024 2:45 PM EST Office Visit Hematology/Oncolo gy [facility] 200 [place] [phone] Martir Lazar MD 200 [facility] [address] 09/05/2024 4:00 PM EDT Office Visit Cardiology, [facility] [address] [place] [address] Sridhar Fay MD 132 [place] [address] 09/26/2024 11:00 AM EDT Nurse Only Ancillary 65 [facility] [address] [place] [address] College, Nurse Annual Wellness Visit [address] [address] Pending Results Name Type Priority Associated Diagnoses Date /Time CULTURE, URINE, QUANTITATIVE Lab Routine Malignant neoplasm of overlapping sites of bladder (HCC) 02/25/2024 2:27 PM EDT Scheduled Procedures Name Priority Associated Diagnoses Date/Ti co CYSTOURETHROSCOPY WITH FULGURATION SMALL BLADDER TUMOR Malignant neoplasm of overlapping sites of bladder (HCC) 03/13/2024 12:27 PM EDT Health Maintenance Due Date Last Done Comments COVID-19 Vaccine ( season) 2024 05/19/2022, 04/24/2021, 09/06/2020, Additional history exists Influenza Vaccine (FLU shot) (#1) 2024 03/11/2023, 02/23/2022, 02/19/2021, Additional history exists Albumin/Creatinine Ratio 04/26/202404/26/ 023, 07/13/2022, 07/08/2021 CKD PHOS USE SMARTSET 09841 07/27/2024 02/2 , 02/25/2022, 01/29/2021 Adult Wellness Visit 09/20/2024 09/21/2023, 01/30/2022, 01/29/2021 Depression Screening 09/20/2024 09/21/2023 CKD HGB USE SMARTSET 13452 11/28/202411/28, 11/29/2023, 07/27/2023, Additional history exists DTap/Tdap [...] this encounter Medical Devices Implanted Type Area Software Configuration Analyst Device Identifier Shelf Expiration Date Model / Serial / Lot Bifurcated Endograft Implanted:Qty: 1 on 03/29/2017 [place] Emerson [place] [facility] [place] Aorta ENDOLOGIX 01/13/2018 [id number]/11 6-40 / [id number] / Proximal Endograft Implanted:Qty: 1 on 03/29/2017 by Lisa Emerson [place] [facility] [place]: Aorta ENDOLOGIX 01/16/2020 A25-25/C75- [id number] / [id number] / documented as of this encounter Visit [...] and were consensually agreed upon. Care Teams Hr Director Relationship Specialty Start Date End Date Javon Scales DO [address] [address] PCP - General Internal Medicine 11/19/23 documented as of this encounter
--- OUTSIDE RECORDS SUMMARY | 2024-05-15 19:02 | External Medical Summary | Summary of Care ---
Author Name Unknown Organization [facility] Address [address] [place] [address] Phone [phone] Care Team Providers Care Mechanical Striper Name Role Phone Asad Scales DO Primary Care Provider Reason for Visit * Reason Comments eRx-Medication Refill Encounter Details Date Type Department Care Team (Late st Contact Info) Description 02/08/2024 Refill Family Practice [address] [place] [address] [place] [phone] Asad Scales DO [address] [place] [address] HTN, goal below 140/90; Atherosclerosis of [place] coronary artery of [place] heart without angina pectoris Allergies Active Allergy Reactions Criticality Noted Date Comments Ciprofloxacin 09/27/2018 Stomach upset Finasteride Other (Please comment) 09/21/2023 Enlarged breast tissue Tamsulosin Hcl 01/14/2010 collapse Levofloxacin Other (Please comment) 03/05/2017 Hx of achilles tendon tear Atorvastatin Abdominal pain 12/23/2015 Lisinopril 03/11/2007 Caused pt to have blurred vision and become very flushed Simvastatin Abdominal pain 12/23/2015 documented as of this encounter (statuses as of 02/08/2024) Medications Medication Sig Dispensed Refills Start Date End Date Status CO Q 10 10 MG PO CAPS Active VITAMIN B-6 100 MG PO TABS 200mg three times per week 0 8 Active OMEGA 3 1000 MG PO CAPS 1200 mg daily Active TUMS 500 MG PO CHEW as needed Active VITAMIN D3 1000 UNITS PO CAPS Take by mouth daily. 4 Active MIRALAX PO POWDIndications:O ther constipation Dissolve one heaping tablespoon in 8 ounces of water or juice - one dose per day for constipation 1 Bottle 2 4 Active fluticasone (FLONASE) 50 MCG/ACT nasal [...] S) 8.6-50 MG per tabletIndications :Drug induced constipation,Billet Heater 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 Active Saline Nasal [place] 0.65 % Nasal Solution (Vantage)Indication s:Epistaxis Administer into nostril 2 Sprays in the morning AND 2 Sprays before bedtime. 30 mL 12 2 Active Nitroglycerin 0.4 MG Sublingual Tablet Sublingual (Nitrostat)Indica tions:Atheroscler osis of [place] coronary artery of [place] heart without angina pectoris one tab under [...] goal below 140/90,Atheroscle rosis of [place] coronary artery of [place] heart without angina pectoris Take 1 tablet by mouth twice daily 200 Tablet 1 4 Active Atenolol 25 MG Oral Tablet (Tenormin)Indicat ions:HTN, goal below 140/90,Atheroscle rosis of [place] coronary artery of [place] heart without angina pectoris Take 1 tablet by mouth twice daily 200 Tablet 1 4 02/08/20 24 Discontinued documented as of this encounter (statuses as of 02/08/2024) Active Problems Problem Noted Date Diagnosed Date [...] CORONARY ATHEROSCLEROSIS OF UNSPECIFIED TYPE OF VESSEL, [place] OR GRAFT History of bladder cancer documented as of this encounter (statuses as of 02/08/2024) Resolved Problems Problem Noted Date Diagnosed Date [...] as of this encounter (statuses as of 02/08/2024) Immunizations Name Administration Dates Next Due COVID-19 mRNA, LNP-s, No Pre serve, 2-Dose Series (HouseCall) 04/24/2021,09/06/2020,08/09/2020 Covid-19, Mrna, Lnp-s, Pf, B ivalent, 30 Mcg, IM, 12 yrs and above (HouseCall) 05/19/2022 H1N1 2009 Influenza, IM 05/28/2009 Influenza, [...] No 04/26/2023 Does the household have a healthsource [place] source of income? (Household - for ages [...] encounter Miscellaneous Notes * Telephone Encounter - Carina Guerrero linda - 02/08/2024 6:47 PM EDTSigned Prescriptions: Disp Refills Atenolol 25 MG Oral Tablet (Tenormin) 200 Ta*1 Sig: Take 1 tablet by mouth twice dailyAuthorizing Provider: ASAD SCALES User: CARINA GUERRERO documented in this encounter Plan of Treatment Upcoming Encounters Date Type Department Care Team (Late st Contact Info) Description 03/02/2024 8:00 AM EDT Office Visit Gastroenterology, [facility] 132 [place] [address] Makayla Moody CRNP [address] [place] [address] 04/21/2024 2:20 PM EST Office Visit Family Practice [address] [place] [address] [address] [place] [address] Asad Scales, [address] [place] [address] 05/03/2024 1:45 PM EST Office Visit Urology, [place] [address] [place] [address] Baudilio Rosas MD [address] [place] [address] 07/28/2024 1:00 PM EST Procedure Only Urology, [place] [address] [place] [address] Jose Lisa MD [address] [place] [address] 08/08/2024 2:45 PM EST Office Visit Hematology/Oncology [facility] 200 [place] [phone] Martir Lazar MD 200 [place] [address] 09/05/2024 4:00 PM EDT Office Visit Cardiology, [facility] 132 [place] [address] Sridhar Fay MD [address] [place] [address] 09/26/2024 11:00 AM EDT Nurse Only Ancillary 65 [facility] 293 [place] [address] College, Nurse Annual Wellness Visit 65 [facility] 293 [place] [address] Health Maintenance Due Date Last Done Comments COVID-19 Vaccine (2022- season) 2024 05/19/2022, 04/24/2021, 09/06/2020, Additional history exists Influenza Vaccine (FLU shot) (#1) 2024 03/11/2023, 02/23/2022, 02/19/2021, Additional history exists Albumin/Creatinine Ratio 04/26/2024 023, 07/13/2022, 07/08/2021 CKD PHOS USE SMARTSET 91426 07/27/202407/09, 02/25/2022, 01/29/2021 Adult Wellness Visit 09/20/2024 09/21/2023, 01/30/2022, 01/29/2021 Depression Screening 09/20/2024 09/21/2023 CKD HGB USE SMARTSET 41278 11/28/202411/28, 11/29/2023, 07/27/2023, Additional history exists DTap/Tdap [...] encounter Medical Devices Implanted Type Area Clinical Nursing Instructor Device Identifier Shelf Expiration Date Model / Serial / Lot Bifurcated Endograft Implanted:Qty: 1 on 03/29/2017 [place] Emerson [place] [facility] [place] Aorta ENDOLOGIX 01/13/2018 [id number]/11 6-40 / [id number] / Proximal Endograft Implanted:Qty: 1 on 03/29/2017 [place] Lisa Emerson MD [place] [facility] [place]: Aorta ENDOLOGIX 01/16/2020 A25-25/C75- O20V / [id number] / documented as of this encounter Visit Diagnoses Diagnosis HTN, goal below 140/90 Unspecified essential hypertension Atherosclerosis of [place] coronary artery of [place] heart without angina pectoris documented in this encounter Advance Directives * Full Code (Latest Code Status on File) Date Activated Date Inactivated Comments 03/29/2017 2:46 PM 03/31/2017 3:33 PM This order reflects the patients wishes and were consensually agreed upon. Care Teams Mechanical Striper Relationship Specialty Start Date End Date Asad Scales DO [address] [place] [address] PCP - General Internal Medicine 11/19/23 documented as of this encounter
--- OUTSIDE RECORDS SUMMARY | 2024-05-15 19:02 | External Medical Summary | Summary of Care ---
Author Name Unknown Organization [facility] Address [address] [place] [address] Phone [phone] Care Team Providers Care Computerized Machine Fabric Cutter Name Role Phone Javon Scales DO Primary Care Provider Reason for Referral * Evaluate & Treat - Unlimited Visits (Within 30 days (routine)) - Authorized Specialty Diagnoses / Procedures Referred By Roberto gómez Referred To Contact Gastroenterology Diagnoses Heme positive stool Javon Scales DO [address] [place] [address] Referral ID Status Reason Start Date Expiration Date Visits Requested Visits Authorized [id number] Authorized Specialty Services Required 01/18/[phone] Question Answer Referral Priority Within 30 days (routine) Where should this appointment be scheduled? [facility] For what condition is the patient being referred? All Gastro Conditions Comments Heme positive stool. Reason for Visit * Reason Onset Date Comments Test Results 01/17/202401/16, 01/17 Encounter Details Date Type Department Care Team (Late st Contact Info) Description 01/17/2024 Telephone Family Practice [address] [place] [address] [place] [address] Javon Scales DO [address] [place] [address] Test Results (01/16, 01/17 ) Allergies Active Allergy Reactions Criticality Noted Date Comments Ciprofloxacin 09/27/2018 Stomach upset Finasteride Other (Please comment) 09/21/2023 Enlarged breast tissue Tamsulosin Hcl 01/14/2010 collapse Levofloxacin Other (Please comment) 03/05/2017 Hx of achilles tendon tear Atorvastatin Abdominal pain 12/23/2015 Lisinopril 03/11/2007 Caused pt to have blurred vision and become very flushed Simvastatin Abdominal pain 12/23/2015 documented as of this encounter (statuses as of 01/19/2024) Medications Medication Sig Dispensed Refills Start Date [...] 1 Capsule daily . Active Saline Nasal [place] 0.65 % Nasal Solution ([place])Indications: Epistaxis Administer into nostril 2 Sprays in the morning AND 2 Sprays before bedtime. 30 mL 12 07/29/2021 Active Nitroglycerin 0.4 MG Sublingual Tablet Sublingual (Nitrostat)Indicati ons:Atherosclerosis of [place] coronary artery of [place] heart without angina pectoris one tab under [...] NEEDED FOR ITCHING 60 mL 08/14/2022 Active Atenolol 25 MG Oral Tablet (Tenormin)Indicatio ns:HTN, goal below 140/90,Atherosclero sis of [place] coronary artery of [place] heart without angina pectoris Take 1 tablet by mouth twice daily 200 Tablet 1 07/04/2023 Active Aspirin 81 MG Oral Tablet Delayed Release Take 1 Tablet by mouth in the morning. 09/08/2023 Active Silodosin 4 MG Oral Capsule (Rapaflo) Take 1 Tablet by mouth in the morning. 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 90 Tablet 01/07/2024 Active documented as of this encounter (statuses as of 01/19/2024) Active Problems Problem Noted Date Diagnosed Date [...] as of this encounter (statuses as of 01/19/2024) Resolved Problems Problem Noted Date Diagnosed Date [...] as of this encounter (statuses as of 01/19/2024) Immunizations Name Administration Dates Next Due COVID-19 mRNA, LNP-s, No Pre serve, 2-Dose Series (Spare to Share) 04/24/2021,09/06/2020,08/09/2020 Covid-19, Mrna, Lnp-s, Pf, B ivalent, [...] lent, No Preserve, IM 02/11/2017,02/17/2016 Seasonal Influenza, Split, I IV3, With Preserve, Inj 02/25/2015,02/22/2014,02/19/2013,02/22,03/03/2011,02/25/2010,02/07/2009 ,03/13/2008 TD - Tetanus/Diptheria (ADULT) 08/11/2007 [...] Telephone Encounter - Christa Sim OSA - 01/19/2024 10:21 AM EDT Appt scheduled, pt aware. * Telephone Encounter - Christa Sim OSA - 01/19/2024 10:18 AM EDT LMOM to set up * Telephone Encounter - Kelli Mota LPN - 01/19/2024 10:11 AM EDT Please schedule gastroenterology. Thank you * Telephone Encounter - Christa Sim OSA - 01/19/2024 10:05 AM EDT Pt returning Katia call. * Telephone Encounter - Kelli Mota LPN - 01/18/2024 2:05 PM EDT Called, left message for patient to return call. Thank you * Telephone Encounter - Christa Paredes OSA - 01/18/2024 12:58 PM EDT Returning call Please call back * Telephone Encounter - Janice Robles LPN - 01/17/2024 12:03 PM EDT Call placed to patient and relayed information from Dr. Scales. Pt acknowledged understanding. Pt is agreeable to GI referral. Pt states he is unsure if he wants to see [facility] or elsewhere. Referral pended. desk pens assembler - please assist with scheduling after referral is signed. * Telephone Encounter - Janice Robles LPN - 01/17/2024 11:57 AM EDT ----- Message from Javon Scales DO sent at 01/15/2024 2:18 PM EDT ----- Stool is heme positive Refer to GI documented in this encounter Plan of Treatment Upcoming Encounters Date Type Department Care Team (Late st Contact Info) Description 01/24/2024 2:00 PM EDT Procedure Only Urology, [place] [address] [place] [address] Jose Lisa MD [address] [place] [address] 03/02/2024 8:00 AM EDT Office Visit [facility], [facility] [address] [place] [facility] [address] Makayla Moody CRNP 132 [facility] [place] [address] 04/21/2024 2:20 PM EST Office Visit Family Practice [address] [place] [address] 293 [facility] [place] [address] Javon Scales DO [address] [place] [address] 05/03/2024 1:45 PM EST Office Visit Urology, [place] [address] [place] [address] Baudilio Rosas MD [address] [place] [address] 08/08/2024 2:45 PM EST Office Visit Hematology/Oncology [facility] 200 [place] [phone] Martir Lazar MD 200 [place] [address] 09/05/2024 4:00 PM EDT Office Visit Cardiology, [facility] 132 [place] [address] Sridhar Fay MD [address] [place] [address] 09/26/2024 11:00 AM EDT Nurse Only Ancillary 65 [facility] [address] [place] [address] College, Nurse Annual Wellness Visit [address] [address] Scheduled Referrals Name Type Priority Associated Diagnoses Order Schedule ADULT GASTROENTEROLOGY REFERRAL OP Referral Within 30 days (routine) Heme positive stool Ordered: 01/18/2024 Health Maintenance Due Date Last Done Comments COVID-19 Vaccine ( season) 2023 05/19/2022, 04/24/2021, 09/06/2020, Additional history exists Influenza Vaccine (FLU shot) (#1) 2024 03/11/2023, 02/23/2022, 02/19/2021, Additional history exists Albumin/Creatinine Ratio 04/26/2024 023, 07/13/2022, 07/08/2021 CKD PHOS USE SMARTSET 96666 07/27/202407/09, 02/25/2022, 01/29/2021 Adult Wellness Visit 09/20/2024 09/21/2023, 01/30/2022, 01/29/2021 Depression Screening 09/20/2024 09/21/2023 CKD HGB USE SMARTSET 19209 11/28/202411/28, 11/29/2023, 07/27/2023, Additional history exists DTaP,Tdap,and Td Vaccines (3 - Td or Tdap) 04/26/2033 [...] this encounter Medical Devices Implanted Type Area Storage Solutions Architect Device Identifier Shelf Expiration Date Model / Serial / Lot Bifurcated Endograft Implanted:Qty: 1 on 03/29/2017 [place] [facility] [place] Aorta ENDOLOGIX 01/13/2018 [id number]/11 6-40 / [id number] / Proximal Endograft Implanted:Qty: 1 on 03/29/2017 by Lisa Emerson [place] [facility] [place] Aorta ENDOLOGIX 01/16/2020 A25-25/C75- O20V / [id number] / documented as of this encounter Visit Diagnoses Diagnosis Heme positive stool- Primary Nonspecific abnormal finding in stool contents documented in this encounter Advance Directives * Full Code (Latest Code Status on File) Date Activated Date Inactivated Comments 03/29/2017 2:46 PM 03/31/2017 3:33 PM This order reflects the patients wishes and were consensually agreed upon. Care Teams Computerized Machine Fabric Cutter Relationship Specialty Start Date End Date Javon Scales DO [address] [place] [address] PCP - General Internal Medicine 11/19/23 documented as of this encounter
--- OUTSIDE RECORDS SUMMARY | 2024-05-15 19:02 | External Medical Summary | Summary of Care ---
Author Name Unknown Organization [facility] Address [address] [address] Phone [phone] Care Team Providers Care Bottom Steep Tender Name Role Phone MitchclraaJavon DO Primary Care Provider [phone] Reason for Visit * Reason Onset Date Comments Test Results 01/18/2024 Encounter Details Date Type Department Care Team (Late st Contact Info) Description 01/18/2024 [facility]phone [facility] [place] [phone] Martir Lazar MD [address] [place] [address] Test Results Allergies Active Allergy Reactions Criticality [...] as of this encounter (statuses as of 01/18/2024) Medications Medication Sig Dispensed Refills Start Date [...] 1 Capsule daily . Active Saline Nasal [place] 0.65 % Nasal Solution ([place])Indications: Epistaxis Administer into nostril 2 Sprays in [...] for Pain, Severe. 90 Tablet 01/07/2024 Active amLODIPine Besylate 2.5 MG Oral Tablet (Norvasc)Indication s:HTN, goal below 140/90 TAKE 1 TABLET BY MOUTH IN THE MORNING 100 Tablet 1 01/18/2024 Active documented as of this encounter (statuses as of 01/18/2024) Active Problems Problem Noted Date Diagnosed Date [...] CORONARY ATHEROSCLEROSIS OF UNSPECIFIED TYPE OF VESSEL, [place] OR GRAFT History of bladder cancer documented as of this encounter (statuses as of 01/18/2024) Resolved Problems Problem Noted Date Diagnosed Date [...] stent and embolization 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10 [facility] [place] s/p reintervention for [...] as of this encounter (statuses as of 01/18/2024) Immunizations Name Administration Dates Next Due COVID-19 mRNA, LNP-s, No Pre serve, 2-Dose Series (BetterYou) 04/24/2021,09/06/2020,08/09/2020 Covid-19, Mrna, Lnp-s, Pf, B ivalent, 30 Mcg, IM, 12 yrs and above (BetterYou) 05/19/2022 H1N1 2009 Influenza, IM 05/28/2009 Influenza, [...] encounter Miscellaneous Notes * Telephone Encounter - Damaris Suresh LPN - 01/18/2024 1:54 PM EDT Left message on patient's voicemail, return phone number provided. * Telephone Encounter - Damaris Suresh LPN - 01/18/2024 1:52 PM EDT ----- Message from Martir Lazar MD sent at 01/18/2024 8:14 AM EDT ----- CT chest without contrast on 01/14/2024: -stable scattered lung nodules, no new lung nodules or enlarged lymph nodes noted. Will continue to observe. I see that he is scheduled to see Dr. Peter on 08/07/2024, looks like it is by mistake. Please check. documented in this encounter Plan of Treatment Upcoming Encounters Date Type Department Care Team (Late st Contact Info) Description 01/24/2024 2:00 PM EDT Procedure Only Urology, [place] [address] [place] [address] Jose Lisa MD [address] [place] [address] 04/21/2024 2:20 PM EST Office Visit Family Practice [address] [place] [address] [address] [place] [address] Javon Scales, [address] [place] [address] 05/03/2024 1:45 PM EST Office Visit Urology, [place] [address] [place] [address] Baudilio Rosas MD [address] [place] [address] 08/08/2024 2:45 PM EST Office Visit [facility]ology[facility] 200 [facility] [place] [phone] Maritr Lazar MD [address] [place] [address] 09/05/2024 4:00 PM EDT Office Visit Cardiology, [facility] [address] [facility] [place] [address] Sridhar Fay MD [address] [place] [address] 09/26/2024 11:00 AM EDT Nurse Only Ancillary 65 [facility] 293 [facility], [place] [address] College, Nurse Annual Wellness Visit 65 [facility] 293 [facility], [place] [address] Health Maintenance Due Date Last Done Comments COVID-19 Vaccine ( season) 2023 05/19/2022, 04/24/2021, 09/06/2020, Additional history exists Influenza Vaccine (FLU shot) (#1) 2024 03/11/2023, 02/23/2022, 02/19/2021, Additional history exists Albumin/Creatinine Ratio 04/26/2024 023, 07/13/2022, 07/08/2021 CKD PHOS USE SMARTSET 65035 07/27/202407/09, 02/25/2022, 01/29/2021 Adult Wellness Visit 09/20/2024 09/21/2023, 01/30/2022, 01/29/2021 Depression Screening 09/20/2024 09/21/2023 CKD HGB USE SMARTSET 47500 11/28/202411/28, 11/29/2023, 07/27/2023, Additional history exists DTaP,Tdap,and [...] this encounter Medical Devices Implanted Type Area Maintenance Associate Device Identifier Shelf Expiration Date Model / Serial / Lot Bifurcated Endograft Implanted:Qty: 1 on 03/29/2017 [place] [facility] [place] Aorta ENDOLOGIX 01/13/2018 [id number] 6-40 / [id number] / Proximal Endograft Implanted:Qty: 1 on 03/29/2017 by [place] Emerson [place] [facility] [place]: Aorta ENDOLOGIX 01/16/2020 A25-25/C75- O20V / [id number] / documented as of this encounter Advance Directives * Full Code (Latest Code Status on File) Date Activated Date Inactivated Comments 03/29/2017 2:46 PM 03/31/2017 3:33 PM This order reflects the patients wishes and were consensually agreed upon. Care Teams Bottom Steep Tender Relationship Specialty Start Date End Date Javon Scales DO 293 [place] [address] PCP - General Internal Medicine 11/19/23 documented as of this encounter
--- OUTSIDE RECORDS SUMMARY | 2024-05-15 19:02 | External Medical Summary | Summary of Care ---
Author Name Unknown Organization [facility] Address [address] [place] [address] Phone [phone] Care Team Providers Care Library Attendant Name Role Phone Asad Scales DO Primary Care Provider [phone] Reason for Visit * Reason Onset Date Comments Medication Refill 02/02/2024 Encounter Details Date Type Department Care Team (Late st Contact Info) Description 02/02/2024 Refill Family Practice 65 [facility] [place] [address] [place] [phone] Asad Scales DO [address] [place] [address] Lumbar degenerative disc disease; Spinal stenosis of [...] as of this encounter (statuses as of 02/04/2024) Medications Medication Sig Dispensed Refills Start Date [...] by mouth daily. 06/14/2013 Active MIRALAX PO POWDIndications:O ther constipation Dissolve one heaping tablespoon in 8 ounces of water or juice - one dose per day for constipation 1 Bottle 2 05/14/2014 Active fluticasone (FLONASE) 50 MCG/ACT nasal sprayIndications: Bronchitis Administer 2 Sprays into each nostril daily. 1 Bottle 5 08/09/2015 Active Docusate Sodium 100 MG Oral Capsule One pill by mouth twice a day as needed 60 Cap 11 06/28/2017 Active Multiple Vitamins-Minerals (MULTIVITAMIN ADULT EXTRA C) CHEW 1 Tablet in the morning. 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 Active Saline Nasal [place] 0.65 % Nasal Solution (Caro)Indication s:Epistaxis Administer into nostril 2 Sprays in the morning AND 2 Sprays before bedtime. 30 mL 12 07/29/2021 Active Nitroglycerin 0.4 MG Sublingual Tablet Sublingual (Nitrostat)Indica tions:Atheroscler osis of [place] coronary artery of [place] heart without angina pectoris one tab under [...] 08/14/2022 Active Atenolol 25 MG Oral Tablet (Tenormin)Indicat ions:HTN, goal below 140/90,Atheroscle rosis of [place] coronary artery of [place] heart without angina pectoris Take 1 tablet [...] for Pain, Severe. 90 Tablet 02/04/2024 Active oxyCODONE HCl 5 MG Oral Tablet (Oxy IR)Indications:Angeles mbar degenerative disc disease,Spinal stenosis of lumbar region at multiple levels,Chronic bilateral low back pain with bilateral sciatica Take 1 Tablet by mouth every 8 hours as needed for Pain, Severe. 90 Tablet 01/07/2024 Discontinue d(Refill) documented as of this encounter (statuses as of 02/04/2024) Active Problems Problem Noted Date Diagnosed Date [...] CORONARY ATHEROSCLEROSIS OF UNSPECIFIED TYPE OF VESSEL, [place] OR GRAFT History of bladder cancer documented as of this encounter (statuses as of 02/04/2024) Resolved Problems Problem Noted Date Diagnosed Date [...] stent and embolization 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/10 [facility] [place]1 month s/p reintervention for his R [...] as of this encounter (statuses as of 02/04/2024) Immunizations Name Administration Dates Next Due COVID-19 mRNA, LNP-s, No Pre serve, 2-Dose Series (Databricks) 04/24/2021,09/06/2020,08/09/2020 Covid-19, Mrna, Lnp-s, Pf, B ivalent, 30 Mcg, IM, 12 yrs and above (Databricks) 05/19/2022 H1N1 2009 Influenza, IM 05/28/2009 Influenza, [...] No 04/26/2023 Does the household have a [facility] source of income? (Household - for [...] Telephone Encounter - Asad Scales DO - 02/04/2024 8:12 AM EDTSigned Prescriptions: Disp Refills oxyCODONE HCl 5 MG Oral Tablet (Oxy IR) 90 Tab*0 Sig: Take 1 Tablet by mouth every 8 hours as needed for Pain, Severe.Authorizing Provider: ASAD SCALES * Telephone Encounter - Asad Scales DO - 02/04/2024 8:11 AM EDT I have reviewed the patients controlled substance dispensing history in the Prescription Drug Monitoring Program in compliance with the [facility] regulations before prescribing a controlled substance. [...] found in Results Review. Medication is due 02/04 02/04 is wednesday Will refill today * Telephone Encounter - Zach Medina, [facility] - 02/03/2024 3:25 PM EDT Pending Prescriptions: Disp Refills oxyCODONE HCl 5 MG Oral Tablet (Oxy IR) 90 Tab*0 Sig: Take 1 Tablet by mouth every 8 hours as needed for Pain, Severe. * Telephone Encounter - Zach Medina, [facility] - 02/03/2024 3:24 PM EDT I have reviewed the patients controlled substance dispensing history in the Prescription Drug Monitoring Program in compliance with the [facility] regulations before prescribing a controlled substance. PDMP checked on 02/03/2024. Pending Prescriptions: Disp Refills oxyCODONE HCl 5 MG Oral Tablet (Oxy IR) 90 Tab*0 Sig: Take 1 Tablet by mouth every 8 hours as needed for Pain, Severe. Last Visit: 01/12/2024 (in office), 11/29/2023 (telemedicine) Next Visit: 04/21/2024 Date medication was last filled: 01/07/2024 Date medication is due for refill: 02/05/2024 Pharmacy: [facility] [address] [place] [address] [place] [address] Is this request for a controlled substance? [...] Review. Please approve if appropriate. Thank you, Zach Medina, PharmD Clinical Pharmacist [facility] ([facility]) [phone] 02/03/2024, 3:24 PM * Telephone Encounter - Sanaz Nicole [facility] - 02/02/2024 11:13 AM EDT Did you pend patient's preferred pharmacy and medication before forwarding?yes Pharmacy: [facility] [address] [place] [address] Pending Prescriptions: Disp Refills oxyCODONE HCl 5 MG Oral Tablet (Oxy IR) 90 Tab*0 Sig: Take 1 Tablet by mouth every 8 hours as needed for Pain, Severe. Last Visit: 01/12/2024 (in office), 11/29/2023 (telemedicine) Next Visit: 04/21/2024 If no future appointments scheduled, and last appointment is greater than a year ago, please schedule patient for a follow-up appointment Last date the medication was ordered: Is this request for a controlled substance?Yes, What was the last refill date w/ quantity 90 and dosage 5mg and Urine Drug Screen Not completed Urine Drug Screen: Results for orders [...] 03/02/2024 8:00 AM EDT Office Visit Gastroenterology, [facility] 132 [facility] [place] [address] Makayla Moody CRNP 132 [facility] [place] [address] 04/21/2024 2:20 PM EST Office Visit Family Practice [address] [place] [address] 293 [place] [address] Asad Scales DO [address] [place] [address] 05/03/2024 1:45 PM EST Office Visit Urology, [place] [address] [place] [address] Baudilio Rosas MD [address] [place] [address] 07/28/2024 1:00 PM EST Procedure Only Urology, [place] [address] [place] [address] Jose Lisa MD [address] [place] [address] 08/08/2024 2:45 PM EST Office Visit Hematology/Oncology [facility] 200 [facility] [place] [address] Martir Lazar MD 200 [place] [address] 09/05/2024 4:00 PM EDT Office Visit Cardiology, [facility] 132 [facility] [place] [address] Sridhar Fay MD 132 [place] [address] 09/26/2024 11:00 AM EDT Nurse Only Ancillary [address] [place] [address] 293 [facility], [place] [address] College, Nurse Annual Wellness Visit 65 [facility] [address] Health Maintenance Due Date Last Done Comments COVID-19 Vaccine ( season) 2023 05/19/2022, 04/24/2021, 09/06/2020, Additional history exists Influenza Vaccine (FLU shot) (#1) 2024 03/11/2023, 02/23/2022, 02/19/2021, Additional history exists Albumin/Creatinine Ratio 04/26/2024 023, 07/13/2022, 07/08/2021 CKD PHOS USE SMARTSET 73816 07/27/202407/09, 02/25/2022, 01/29/2021 Adult Wellness Visit 09/20/2024 09/21/2023, 01/30/2022, 01/29/2021 Depression Screening 09/20/2024 09/21/2023 CKD HGB USE SMARTSET 85526 11/28/202411/28, 11/29/2023, 07/27/2023, Additional history exists DTap/Tdap [...] this encounter Medical Devices Implanted Type Area Hot Mill Roller Device Identifier Shelf Expiration Date Model / Serial / Lot Bifurcated Endograft Implanted:Qty: 1 on 03/29/2017 by Lisa Emerson MD [place] [facility] [place]: Aorta ENDOLOGIX 01/13/2018 [id number] 6-40 / [id number] / Proximal Endograft Implanted:Qty: 1 on 03/29/2017 by Lisa Emerson MD at [place] [facility] [place] [place]/A: Aorta ENDOLOGIX 01/16/2020 A25-25/C75- O20V / [id number] / documented as of this encounter Visit Diagnoses Diagnosis Lumbar degenerative disc disease Degeneration of lumbar or lumbosacral intervertebral disc Spinal stenosis of lumbar region at multiple levels Spinal stenosis, lumbar region, without neurogenic claudication Chronic bilateral low back pain with bilateral sciatica documented in this encounter Advance Directives * Full Code (Latest Code Status on File) Date Activated Date Inactivated Comments 03/29/2017 2:46 PM 03/31/2017 3:33 PM This order reflects the patients wishes and were consensually agreed upon. Care Teams Library Attendant Relationship Specialty Start Date End Date Asad Scales DO [address] [place] [address] PCP - General Internal Medicine 11/19/23 documented as of this encounter
--- OUTSIDE RECORDS SUMMARY | 2024-05-15 19:02 | External Medical Summary | Summary of Care ---
Author Name Unknown Organization [facility] Address [address] [place] [address] Phone [phone] Care Team Providers Care Museum Exhibit Technician Name Role Phone Javon Scales DO Primary Care Provider [phone] Reason for Visit * Reason Onset Date Comments Health Maintenance 02/21/2024 Encounter Details Date Type Department Care Team (Late st Contact Info) Description 02/21/2024 Telephone Family Practice 65 [facility] [place] [address] [place] [address] Javon Scales DO [address] [place] [address] Health Maintenance Allergies Active Allergy Reactions Criticality Noted Date Comments Ciprofloxacin 09/27/2018 Stomach upset Finasteride Other (Please comment) 09/21/2023 Enlarged breast tissue Tamsulosin Hcl 01/14/2010 collapse Levofloxacin Other (Please comment) 03/05/2017 Hx of achilles tendon tear Atorvastatin Abdominal pain 12/23/2015 Lisinopril 03/11/2007 Caused pt to have blurred vision and become very flushed Simvastatin Abdominal pain 12/23/2015 documented as of this encounter (statuses as of 02/21/2024) Medications Medication Sig Dispensed Refills Start Date [...] 1 Capsule daily . Active Saline Nasal [place] 0.65 % Nasal Solution ([place])Indications: Epistaxis Administer into nostril 2 Sprays in the morning AND 2 Sprays before bedtime. 30 mL 12 07/29/2021 Active Nitroglycerin 0.4 MG Sublingual Tablet Sublingual (Nitrostat)Indicati ons:Atherosclerosis of [place] coronary artery of [place] heart without angina pectoris one tab under [...] (Tenormin)Indicatio ns:HTN, goal below 140/90,Atherosclero sis of [place] coronary artery of [place] heart without angina pectoris Take 1 tablet by mouth twice daily 200 Tablet 1 02/08/2024 Active documented as of this encounter (statuses as of 02/21/2024) Active Problems Problem Noted Date Diagnosed Date [...] CORONARY ATHEROSCLEROSIS OF UNSPECIFIED TYPE OF VESSEL, [place] OR GRAFT History of bladder cancer documented as of this encounter (statuses as of 02/21/2024) Resolved Problems Problem Noted Date Diagnosed Date [...] as of this encounter (statuses as of 02/21/2024) Immunizations Name Administration Dates Next Due COVID-19 mRNA, LNP-s, No Pre serve, 2-Dose Series (Simple-Fill) 04/24/2021,09/06/2020,08/09/2020 Covid-19, Mrna, Lnp-s, Pf, B ivalent, 30 Mcg, IM, 12 yrs and above (Simple-Fill) 05/19/2022 H1N1 2009 Influenza, IM 05/28/2009 Influenza, [...] encounter Miscellaneous Notes * Telephone Encounter - Radha Joya LPN - 02/21/2024 2:00 PM EDT Care Gaps Comprehensive Care Outreach Last Office/Telemedicine Visit: 01/12/2024 (in office), 11/29/2023 (telemedicine) Next Office Visit: 04/21/2024 Hemoglobin AIC Results: No results found for: "HEMOGLOBIN A1C" BP Readings from Last 1 Encounters: 01/24/24 187/73 Reviewed Health Maintenance below: Health Maintenance Topic Date Due Influenza Vaccine (FLU shot) (1) 02/06/2024 COVID-19 Vaccine ( - season) 2024 Albumin/Creatinine Ratio 04/26/2024 CKD PHOS USE SMARTSET 73508 07/27/2024 Depression Screening 09/20/2024 Adult Wellness Visit 09/20/2024 CKD HGB USE SMARTSET 61915 11/28/2024 DTap/Tdap Vaccines (3 - Td or Tdap) 04/26/2033 Zoster Vaccines Completed Pneumococcal Vaccine: 65+ Years Completed Hepatitis B Vaccine Aged Out MENINGOCOCCAL (MENACTRA/MENVEO) Aged Out HPV (Gardasil) Vaccine Aged Out Postive fobt Referred to gastro Care Gap Outreach Action Taken: Outreach not indicated documented in this encounter Plan of Treatment Upcoming Encounters Date Type Department Care Team (Late st Contact Info) Description 03/02/2024 8:00 AM EDT Office [facility], [facility] [address] Makayla Moody CRNP [facility] [address] 04/21/2024 2:20 PM EST Office Visit Family Practice [address] [place] [address] 293 [place] [address] Javon Scales DO 293 [place] [address] 05/03/2024 1:45 PM EST Office Visit Urology, [facility] [address] [place] [address] Baudilio Rosas MD [address] [place] [facility] [place] [place] [address] 07/28/2024 1:00 PM EST Procedure Only Urology, [place] [address] [place] [address] Jose Lisa MD [address] [place] [address] 08/08/2024 2:45 PM EST Office Visit Hematology/Oncology [facility] 200 [place] [phone] Martir Lazar MD 200 [place] [address] 09/05/2024 4:00 PM EDT Office Visit Cardiology, [facility] 132 [place] [address] Sridhar Fay MD 132 [place] [address] 09/26/2024 11:00 AM EDT Nurse Only Ancillary 65 [facility] 293 [place] [address] College, Nurse Annual Wellness Visit [address] [place] [address] Health Maintenance Due Date Last Done Comments COVID-19 Vaccine ( season) 2024 05/19/2022, 04/24/2021, 09/06/2020, Additional history exists Influenza Vaccine (FLU shot) (#1) 2024 03/11/2023, 02/23/2022, 02/19/2021, Additional history exists Albumin/Creatinine Ratio 04/26/2024 023, 07/13/2022, 07/08/2021 CKD PHOS USE SMARTSET 03880 07/27/202407/09, 02/25/2022, 01/29/2021 Adult Wellness Visit 09/20/2024 09/21/2023, 01/30/2022, 01/29/2021 Depression Screening 09/20/2024 09/21/2023 CKD HGB USE SMARTSET 11734 11/28/202411/28, 11/29/2023, 07/27/2023, Additional history exists DTap/Tdap [...] this encounter Medical Devices Implanted Type Area Fruit Worker Device Identifier Shelf Expiration Date Model / Serial / Lot Bifurcated Endograft Implanted:Qty: 1 on 03/29/2017 [place] Emerson [place] [facility] [place] Aorta ENDOLOGIX 01/13/2018 [id number] 6-40 / [id number] / Proximal Endograft Implanted:Qty: 1 on 03/29/2017 by [place] Emerson [place] [facility] [place]: Aorta ENDOLOGIX 01/16/2020 A25-25/C75- O20V / [id number] / documented as of this encounter Advance Directives * Full Code (Latest Code Status on File) Date Activated Date Inactivated Comments 03/29/2017 2:46 PM 03/31/2017 3:33 PM This order reflects the patients wishes and were consensually agreed upon. Care Teams Museum Exhibit Technician Relationship Specialty Start Date End Date Javon Scales DO [address] [place] [address] PCP - General Internal Medicine 11/19/23 documented as of this encounter
--- OUTSIDE RECORDS SUMMARY | 2024-05-15 19:02 | External Medical Summary | Summary of Care ---
Author Name Unknown Organization [facility] Address [address] [place] [address] Phone [phone] Care Team Providers Care Personnel Representative Name Role Phone Javon Scales Apolonia ARMENTA Primary Care Provider [phone] Reason for Visit * Reason Comments Cystoscopy Encounter Details Date Type Department Care Team (Latest Contact Info) Description 01/24/2024 2:00 PM EDT Procedure Only Urology, [place] [address] [place] [address] oJse Lisa MD [address] [place] [address] Malignant neoplasm of overlapping sites [...] as of this encounter (statuses as of 01/24/2024) Medications Medication Sig Dispensed Refills Start Date [...] 1 Capsule daily . Active Saline Nasal [place] 0.65 % Nasal Solution ([place])Indications: Epistaxis Administer into nostril 2 Sprays in [...] THE MORNING 100 Tablet 1 01/18/2024 Active Hospital, Clinic, or Other Facility Administered Medication Ordered Dose Route Frequency Start Date End Date Status sulfamethoxazole-trimethopr im DS (Bactrim DS) 800-160 MG 1 TabletIndications:Malignant neoplasm of overlapping sites of bladder (HCC) 1 Tablet OR ONCE 01/24/2024 01/24/2024 En ded documented as of this encounter (statuses as of 01/24/2024) Active Problems Problem Noted Date Diagnosed Date [...] other sites 05/04/2003 Overview: liver- seen on /s 2002- stable/asymptomatic 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 CORONARY ATHEROSCLEROSIS OF UNSPECIFIED TYPE OF VESSEL, SAM[place] OR GRAFT History of bladder cancer documented as of this encounter (statuses as of 01/24/2024) Resolved Problems Problem Noted Date Diagnosed Date [...] as of this encounter (statuses as of 01/24/2024) Immunizations Name Administration Dates Next Due COVID-19 mRNA, LNP-s, No Pre serve, 2-Dose Series ([employer]) 04/24/2021,09/06/2020,08/09/2020 Covid-19, Mrna, Lnp-s, Pf, B ivalent, 30 Mcg, IM, 12 yrs and above ([employer]) 05/19/2022 H1N1 2009 Influenza, IM 05/28/2009 Influenza, Whole Virus 03/07/2007,2005,03/16/2005,04/07 Pneumococcal Conjugate Vacc, 13 Valent (Prevnar) 10/16/2014 Pneumococcal Polysaccharide PPV23 (Pneumovax) 05/13/2006,06/07/1997 Seasonal Influenza, PF, 6 M & above, IM , (FluLaval or Fluzone) 02/19/2021,02/09/2019,03/01/2018 Seasonal Influenza, Quadriva lent Hd (Fluzone Hd) 03/11/2023,02/23/2022 Seasonal Influenza, Quadriva lent Hd, 65+ Yrs 03/09/2020 Seasonal Influenza, Quadriva lent, No Preserve, IM 02/11/2017,02/17/2016 Seasonal Influenza, Split, I IV3, With Preserve, Inj 02/25/2015,02/22/2014,02/19/2013,02/22,03/03/2011,02/25/2010,02/07/2009 ,03/13/2008,03/16/2003,05/18/2002 TD - Tetanus/Diptheria (ADULT) 08/11/2007 TDAP (age [...] No 04/26/2023 Does the household have a [facility] source of income? (Household - for ages [...] Sign Reading Time Taken Comments Blood Pressure 187/73 01/24/2024 1:42 PM EDT Pulse 63 01/24/2024 1:42 PM EDT Temperature 36.1 C (96.9 F) 01/24/2024 1:42 PM ED T Respiratory Rate - - Oxygen [...] Progress Notes * Jose Lisa MD - 01/24/2024 2:25 PM EDT Urology Staff Addendum I have discussed the patient's management with the medical trainee and agree with the note. Please refer to the documented findings and plan of care. The patient's service consisted of an evaluation.I have seen and evaluated the patient. documented in this encounter Plan of Treatment Upcoming Encounters Date Type Department Care Team (Late st Contact Info) Description 03/02/2024 8:00 AM EDT Office Visit Gastroenterology, [facility] [address] [place] [address] Makayla Moody CRNP 132 [place] [address] 04/21/2024 2:20 PM EST Office Visit Family Practice [address] [place] [address] 293 [place] [address] Javon Scales, 293 [facility] [place] [address] 05/03/2024 1:45 PM EST Office Visit Urology, [place] [address] [place] [address] Baudilio Rosas MD [address] [place] [address] 07/28/2024 1:00 PM EST Procedure Only Urology, [place] [address] [place] [address] Jose Lisa MD [address] [place] [address] 08/08/2024 2:45 PM EST Office Visit Hematology/Oncology [facility] [address] [facility] [place] [address] Martir Lazar MD 200 [place] [address] 09/05/2024 4:00 PM EDT Office Visit Cardiology, [facility] [address] [place] [address] Sridhar Fay MD [address] [place] [address] 09/26/2024 11:00 AM EDT Nurse Only Ancillary [address] [place] [address] College, Nurse Annual Wellness Visit [address] [address] Scheduled Orders Name Type Priority Associated Diagnoses Orde r Schedule CYTOLOGY Pathology Routine Malignant neoplasm of overlapping sites of bladder (HCC) Expected: 01/24/2024, Expires: 02/23/2025 Health Maintenance Due Date Last Done Comments COVID-19 Vaccine ( season) 2023 05/19/2022, 04/24/2021, 09/06/2020, Additional history exists Influenza Vaccine (FLU shot) (#1) 2024 03/11/2023, 02/23/2022, 02/19/2021, Additional history exists Albumin/Creatinine Ratio 04/26/202404/26/2 023, 07/13/2022, 07/08/2021 CKD PHOS USE SMARTSET 40292 07/27/2024 02/2 , 02/25/2022, 01/29/2021 Adult Wellness Visit 09/20/2024 09/21/2023, 01/30/2022, 01/29/2021 Depression Screening 09/20/2024 09/21/2023 CKD HGB USE SMARTSET 74617 11/28/202411/28, 11/29/2023, 07/27/2023, Additional history exists DTaP,Tdap,and [...] this encounter Medical Devices Implanted Type Area Independent Beauty Consultant Device Identifier Shelf Expiration Date Model / Serial / Lot Bifurcated Endograft Implanted:Qty: 1 on 03/29/2017 by Lisa Emerson MD at OR [facility] N/A: Aorta ENDOLOGIX 01/13/2018 [id number]/[id number] 6-40 / [id number] / Proximal Endograft Implanted:Qty: 1 on 03/29/2017 by Lisa Emerosn MD at OR [facility] N/A: Aorta ENDOLOGIX 01/16/2020 A25-25/C75- [id number] / [id number] / documented as of this encounter Procedures Procedure Name Priority Date/Time Associated Diagnosis Comments URINALYSIS, POINT OF CARE DAPHNE 01/24/2024 1:53 PM EDT documented in this encounter Results * (ABNORMAL) URINALYSIS, POINT OF CARE (01/24/2024 1:53 PM EDT) Color, Urine Yellow Light Yellow, Yellow 01/24/2024 1:55 PM EDT [facility] Clarity, Urine Clear Clear 01/24/2024 1:55 PM EDT [facility] Glucose, Urine Negative Negative mg/dL 01/24/2024 1:55 PM EDT [facility] Bilirubin, Urine Negative Negative 01/24/2024 1:55 PM EDT [facility] Ketone, Urine Negative Negative mg/dL 01/24/2024 1:55 PM EDT [facility] Specific [place], Urine 1.020 1.003 - 1.030 01/24/2024 1:55 PM EDT [facility] Blood, Urine Small(A) Negative 01/24/2024 1:55 PM EDT [facility] pH, Urine 5.5 5.0, 5.5, 6.0, 6.5, 7.0, 7.5 units 01/24/2024 1:55 PM EDT [facility] Protein, Urine Negative Negative mg/dL 01/24/2024 1:55 PM EDT [facility] Urobilinogen, Urine 0.2 0.2, 1.0 mg/dL 01/24/2024 1:55 PM EDT [facility] Nitrite, Urine Negative Negative 01/24/2024 1:55 PM EDT [facility] Esterase, Urine Negative Negative 01/24/2024 1:55 PM EDT [facility] Urine 01/24/2024 1:53 PM EDT 01/24/2024 1:55 PM EDT Jose Lisa MD LAB POINT OF CARE TEST DOCKED DEVICE UNSOLICITED RESULTS [facility] [address] [place] [address] documented in this encounter Visit Diagnoses Diagnosis Malignant neoplasm of overlapping sites of bladder (HCC)- Primary Malignant neoplasm of other specified sites of bladder documented in this encounter Administered Medications Inactive Administered Medications - up to 3 most recent administrations Medication Order MAR Action Action Date Dose Rate Site sulfamethoxazole-trimethoprim DS (Bactrim DS) 800-160 MG 1 Tablet 1 Tablet, Oral, ONCE, On 01/24/24 at 1500, For 1 dose Given 01/24/2024 2:26 PM EDT 1 Tablet documented in this encounter Advance Directives * Full Code (Latest Code Status on File) Date Activated Date Inactivated Comments 03/29/2017 2:46 PM 03/31/2017 3:33 PM This order reflects the patients wishes and were consensually agreed upon. Care Teams Personnel Representative Relationship Specialty Start Date End Date Javon Scales DO [address] [place] [address] PCP - General Internal Medicine 11/19/23 documented as of this encounter
--- OUTSIDE RECORDS SUMMARY | 2024-05-15 19:02 | External Medical Summary | Summary of Care ---
Author Name Unknown Organization [facility] Address [address] [place] [address] Phone [phone] Care Team Providers Care Customer Agent Name Role Phone Javon Scales Apolonia ARMENTA Primary Care Provider [phone] Reason for Visit * Reason Comments Cystoscopy Encounter Details Date Type Department Care Team (Latest Contact Info) Description 01/24/2024 2:00 PM EDT Procedure Only Urology, [place] [address] [place] [address] Jose Lisa MD [address] [place] [address] Malignant neoplasm of overlapping sites [...] 1 Capsule daily . Active Saline Nasal [place] 0.65 % Nasal Solution ([place])Indications: Epistaxis Administer into nostril 2 Sprays in the morning AND 2 Sprays before bedtime. 30 mL 12 07/29/2021 Active Nitroglycerin 0.4 MG Sublingual Tablet Sublingual (Nitrostat)Indicati ons:Atherosclerosis of ione coronary artery of ione heart without angina pectoris one tab under [...] (Tenormin)Indicatio ns:HTN, goal below 140/90,Atherosclero sis of ione coronary artery of ione heart without angina pectoris Take 1 tablet [...] CORONARY ATHEROSCLEROSIS OF UNSPECIFIED TYPE OF VESSEL, [place] OR GRAFT History of bladder cancer documented [...] stent and embolization 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/10 [facility] 08/09:1 month s/p reintervention for his [...] mRNA, LNP-s, No Pre serve, 2-Dose Series ([employer]) 04/24/2021,09/06/2020,08/09/2020 Covid-19, Mrna, Lnp-s, Pf, B ivalent, 30 Mcg, IM, 12 yrs and above ([employer]) 05/19/2022 H1N1 2009 Influenza, IM 05/28/2009 Influenza, [...] No 04/26/2023 Does the household have [facility]? (Household - for [...] 03/02/2024 8:00 AM EDT Office Visit Gastroenterology, [facility] [place] [address] [place] [address] Makayla Moody CRNP 132 [facility] [place] [address] 04/21/2024 2:20 PM EST Office Visit Family Practice [address] [place] [address] 293 [facility] [place] [address] Javon Scales, 293 [facility] [place] [address] 05/03/2024 1:45 PM EST Office Visit Urology, [place] [address] [place] [address] Baudilio Rosas MD [address] [place] [address] 07/28/2024 1:00 PM EST Procedure Only Urology, [place] [address] [place] [address] Jose Lisa MD [address] [place] [address] 08/08/2024 2:45 PM EST Office Visit Hematology/Oncology [facility] [address] [place] [address] Martir Lazar MD 200 [place] [address] 09/05/2024 4:00 PM EDT Office Visit Cardiology, [facility] [place] [address] [place] [address] Sridhar Fay MD [address] [place] [address] 09/26/2024 11:00 AM EDT Nurse Only Ancillary [address] [place] [address] College, Nurse Annual Wellness Visit [address] [address] Scheduled Orders Name Type Priority Associated Diagnoses [...] 023, 07/13/2022, 07/08/2021 CKD PHOS USE SMARTSET 17838 07/27/2024 02/2 , 02/25/2022, 01/29/2021 Adult Wellness Visit 09/20/2024 09/21/2023, 01/30/2022, 01/29/2021 Depression Screening 09/20/2024 09/21/2023 CKD HGB USE SMARTSET 98714 11/28/202411/28, 11/29/2023, 07/27/2023, Additional history exists DTaP,Tdap,and [...] this encounter Medical Devices Implanted Type Area General Assignment Reporter Device Identifier Shelf Expiration Date Model / Serial / Lot Bifurcated Endograft Implanted:Qty: 1 on 03/29/2017 by Lisa Emerson MD at OR [facility] N/A: Aorta ENDOLOGIX 01/13/2018 [id number] 6-40 / [id number] / Proximal Endograft Implanted:Qty: 1 on 03/29/2017 by Lisa Emerson MD at OR [facility] N/A: Aorta ENDOLOGIX 01/16/2020 A25-25/C75- O20V / [id number] / documented as of this encounter Procedures Procedure Name Priority Date/Time Associated Diagnosis Comments URINALYSIS, POINT OF CARE DAPHNE 01/24/2024 1:53 PM EDT documented in this encounter Results * (ABNORMAL) URINALYSIS, POINT OF CARE (01/24/2024 1:53 PM EDT) Color, Urine Yellow Light Yellow, Yellow 01/24/2024 1:55 PM EDT [facility] Clarity, Urine Clear Clear 01/24/2024 1:55 PM EDT [facility] Glucose, Urine Negative Negative mg/dL 01/24/2024 1:55 PM EDT [facility] Bilirubin, Urine Negative Negative 01/24/2024 1:55 PM EDT [facility] Ketone, Urine Negative Negative mg/dL 01/24/2024 1:55 PM EDT [facility] Specific [place], Urine 1.020 1.003 - 1.030 01/24/2024 1:55 PM EDT [facility] Blood, Urine Small(A) Negative 01/24/2024 1:55 PM EDT [facility] pH, Urine 5.5 5.0, 5.5, 6.0, 6.5, 7.0, 7.5 units 01/24/2024 1:55 PM EDT [facility] Protein, Urine Negative Negative mg/dL 01/24/2024 1:55 PM EDT [facility] Urobilinogen, Urine 0.2 0.2, 1.0 mg/dL 01/24/2024 1:55 PM EDT [facility] Nitrite, Urine Negative Negative 01/24/2024 1:55 PM EDT [facility] Esterase, Urine Negative Negative 01/24/2024 1:55 PM EDT [facility] Urine 01/24/2024 1:53 PM EDT 01/24/2024 1:55 PM EDT Jose Lisa MD LAB POINT OF CARE TEST DOCKED DEVICE UNSOLICITED RESULTS [facility] [address] [place] [address] documented in this encounter Visit Diagnoses Diagnosis [...] and were consensually agreed upon. Care Teams Customer Agent Relationship Specialty Start Date End Date Javon Scales DO [address] [place] [place] [address] PCP - General Internal Medicine 11/19/23 documented as of this encounter
--- OUTSIDE RECORDS SUMMARY | 2024-05-15 19:02 | External Medical Summary ---
Author Name Unknown Address Unknown Organization : Laboratory Report Ordering Provider Test Date Status LENNY MARTINEZ 01/24/2024 13:53:00 Final Observation Date Value Abnormality Reference (Units ) Status Color of Urine by Auto 01/24/2024 13:53:00 Yellow Light Yellow, Yellow Final Clarity, Urine 01/24/2024 13:53:00 Clear Clear Final Glucose [Mass/volume] in Urine by Automated test strip 01/24/2024 13:53:00 Negative Negative (mg/dL) Final Bilirubin.total [Presence] in Urine by Automated test strip 01/24/2024 13:53:00 Negative Negative Final Ketones [Mass/volume] in Urine by Automated test strip 01/24/2024 13:53:00 Negative Negative (mg/dL) Final Specific gravity, Urine 01/24/2024 13:53:00 1.020 1.003-1.030 Final Hemoglobin [Presence] in Urine by Automated test strip 01/24/2024 13:53:00 Small Abnormal Negative Final pH, Urine 01/24/2024 13:53:00 5.5 5.0, 5.5, 6.0, 6.5, 7.0, 7.5 (units) Final Protein [Mass/volume] in Urine by Automated test strip 01/24/2024 13:53:00 Negative Negative (mg/dL) Final Urobilinogen, Urine 01/24/2024 13:53:00 0.2 0.2, 1.0 (mg/dL) Final Nitrite [Presence] in Urine by Automated test strip 01/24/2024 13:53:00 Negative Negative Final Leukocyte esterase [Presence] in Urine by Automated test strip 01/24/2024 13:53:00 Negative Negative Final Performing Location
--- OUTSIDE RECORDS SUMMARY | 2024-05-15 19:03 | External Medical Summary | Summary of Care ---
Author Name Unknown Organization [facility] Address [address] [place] [address] Phone [phone] Care Team Providers Care Core Winder Name Role Phone Javon Scales DO Primary Care Provider [phone] Reason for Visit * Reason Onset Date Comments Order Request 01/13/2024 Occult blood sto ol Information 01/13/202401/12 Encounter Details Date Type Department Care Team (Late st Contact Info) Description 01/13/2024 Telephone Family Practice 65 [facility] [address] [place] [address] Javon Scales DO [address] [place], [place] [id number] Order Request (Occult blood stool); Inform... Allergies Active Allergy Reactions Criticality Noted Date Comments Ciprofloxacin 09/27/2018 Stomach upset Finasteride Other (Please comment) 09/21/2023 Enlarged breast tissue Tamsulosin Hcl 01/14/2010 collapse Levofloxacin Other (Please comment) 03/05/2017 Hx of achilles tendon tear Atorvastatin Abdominal pain 12/23/2015 Lisinopril 03/11/2007 Caused pt to have blurred vision and become very flushed Simvastatin Abdominal pain 12/23/2015 documented as of this encounter (statuses as of 01/13/2024) Medications Medication Sig Dispensed Refills Start Date [...] 1 Capsule daily . Active Saline Nasal [place] 0.65 % Nasal Solution ([place])Indications: Epistaxis Administer into nostril 2 Sprays in the morning AND 2 Sprays before bedtime. 30 mL 12 07/29/2021 Active Nitroglycerin 0.4 MG Sublingual Tablet Sublingual (Nitrostat)Indicati ons:Atherosclerosis of [place] coronary artery of [place] heart without angina pectoris one tab under [...] NEEDED FOR ITCHING 60 mL 08/14/2022 Active amLODIPine Besylate 2.5 MG Oral Tablet (Norvasc)Indication s:HTN, goal below 140/90 Take 1 Tablet by mouth in the morning. 100 Tablet 1 06/22/2023 Active Atenolol 25 MG Oral Tablet (Tenormin)Indicatio ns:HTN, goal below 140/90,Atherosclero sis of cabazon coronary artery of cabaz[place] heart without angina pectoris Take 1 tablet [...] as of this encounter (statuses as of 01/13/2024) Active Problems Problem Noted Date Diagnosed Date [...] CORONARY ATHEROSCLEROSIS OF UNSPECIFIED TYPE OF VESSEL, [place] OR GRAFT History of bladder cancer documented as of this encounter (statuses as of 01/13/2024) Resolved Problems Problem Noted Date Diagnosed Date [...] stent and embolization 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/10 [facility] 08/09:1 month s/p [...] as of this encounter (statuses as of 01/13/2024) Immunizations Name Administration Dates Next Due COVID-19 mRNA, LNP-s, No Pre serve, 2-Dose Series ([employer]) 04/24/2021,09/06/2020,08/09/2020 Covid-19, Mrna, Lnp-s, Pf, B ivalent, 30 Mcg, IM, 12 yrs and above ([employer]) 05/19/2022 H1N1 2009 Influenza, IM 05/28/2009 Influenza, [...] 04/26/2023 Does the household have a [facility] source of income? (Household - for [...] Telephone Encounter - Kelli Mota LPN - 01/13/2024 1:29 PM EDT Patient is aware and will comply. Thank you * Telephone Encounter - Javon Scales DO - 01/13/2024 1:13 PM EDT Check for occult blood. * Telephone Encounter - Janice Robles LPN - 01/13/2024 12:32 PM EDT Call placed to patient for more information. Pt reports that when he wipes after having a BM there is pink blood, sometimes darker blood on the toilet paper. States this has been going on for awhile. He is worried it is cancer so he called the surgeon's office and was told he can come in and turkey picker a kit for a stool specimen and mail it in. Asked pt if he has constipation. He reported yes. He is using Fleets suppositories, taking stools softeners, using "fiber that you mix with water" and drinking prune juice in the morning. States he has swollen hemorrhoids. Pt had OV with Dr. Scales yesterday, but forgot to mention this to him. Informed him I would relay this message to Dr. Scales for recommendations. * Telephone Encounter - Xiomy Delgado OSA - 01/13/2024 9:43 AM EDT Patient calling Gen Surg for blood in stool thinks it is hemorrhoids with swelling and is using suppositories a lot. He is concerned it could be cancer. Requesting order for Occult Blood/Stool. Please advise patient to turkey picker kit and he can mail it in. Based on results then patient can be referredto Gen Surg for hemorrhoids. [phone] documented in this encounter Plan of Treatment Upcoming Encounters Date Type Department Care Team (Late st Contact Info) Description 01/14/2024 12:30 PM EDT Imaging Radiology [facility] 1[address] [facility] [address] [place] [address] 01/24/2024 2:00 PM EDT Procedure Only Urology, [place] [address] [place] [address] Jose Lisa MD [address] [place] [address] 04/21/2024 2:20 PM EST Office Visit Family Practice [address] [place] [address] [address] [place] [address] Javon Scales DO [address] [place] [address] 05/03/2024 1:45 PM EST Office Visit Urology, [place] [address] [place] [address] Baudilio Rosas MD [address] [place] [address] 08/07/2024 2:30 PM EST Office Visit Hematology/Oncology [facility] 200 [place] [address] Funmilayo Peter MD 200 [place] [address] 09/05/2024 4:00 PM EDT Office Visit Cardiology, [facility] [address] [place] [address] Sridhar Fay MD 132 [facility] [place] [address] 09/26/2024 11:00 AM EDT Nurse Only Ancillary [address] [place] [address] 293 [place] [place] [address] [place], Nurse Annual Wellness Visit [address] [facility], [place] [address] Scheduled Orders Name Type Priority Associated Diagnoses Orde r Schedule FECAL OCCULT BLOOD, EIA Lab Routine Bloody stool Expected: 01/13/2024 (Approximate), Expires: 01/12/2025 Health Maintenance Due Date Last Done Comments COVID-19 Vaccine ( season) 2024 05/19/2022, 04/24/2021, 09/06/2020, Additional history exists Postponed from 02/05/2023 (Patient Declined After Education) Influenza Vaccine (FLU shot) (#1) 2024 03/11/2023, 02/23/2022, 02/19/2021, Additional history exists Albumin/Creatinine Ratio 04/26/2024 023, 07/13/2022, 07/08/2021 CKD PHOS USE SMARTSET 50720 07/27/202407/09, 02/25/2022, 01/29/2021 Adult Wellness Visit 09/20/2024 09/21/2023, 01/30/2022, 01/29/2021 Depression Screening 09/20/2024 09/21/2023 CKD HGB USE SMARTSET 43453 11/28/202411/28, 11/29/2023, 07/27/2023, Additional history exists DTaP,Tdap,and [...] encounter Medical Devices Implanted Type Area Home Security Alarm Installer Device Identifier Shelf Expiration Date Model / Serial / Lot Bifurcated Endograft Implanted:Qty: 1 on 03/29/2017 by Lisa Emerson MD at OR [facility] N/A: Aorta ENDOLOGIX 01/13/2018 [id number]/11 6-40 / [id number] / Proximal Endograft Implanted:Qty: 1 on 03/29/2017 by Lisa Emerson MD at OR [facility] N/A: Aorta ENDOLOGIX 01/16/2020 A25-25/C75- [id number] / [id number] / documented as of this encounter Visit Diagnoses Diagnosis Bloody stool- Primary Blood in stool documented in this encounter Advance Directives * Full Code (Latest Code Status on File) Date Activated Date Inactivated Comments 03/29/2017 2:46 PM 03/31/2017 3:33 PM This order reflects the patients wishes and were consensually agreed upon. Care Teams Core Winder Relationship Specialty Start Date End Date Javon Scales DO [address] [place] [address] PCP - General Internal Medicine 11/19/23 documented as of this encounter
--- OUTSIDE RECORDS SUMMARY | 2024-05-15 19:03 | External Medical Summary ---
Author Name Unknown Address Unknown Organization K01:[facility] [address] [place] [address] Laboratory Report Ordering Provider Test Date Status АННА KAMARA 01/14/2024 12:58:22 Final Observation Date Value Abnormality Reference (Units ) Status Occult Blood (EIA) 01/14/2024 12:58:22 Positive Abnormal N egative Final Performing Location LABORATORY C - [address] [place] [address]
--- OUTSIDE RECORDS SUMMARY | 2024-05-15 19:03 | External Medical Summary | Summary of Care ---
Author Name Unknown Organization [facility] Address [address] [place] [address] Phone [phone] Care Team Providers Care Transmission Rebuilder Name Role Phone Asad Scales DO Primary Care Provider [phone] Reason for Visit * Reason Comments eRx-Medication Refill Encounter Details Date Type Department Care Team (Late st Contact Info) Description 01/16/2024 Refill Family Practice [address] [place] [address] [place] [phone] Asad Scales DO [address] [place] [address] HTN, goal below 140/90 Allergies Active Allergy Reactions Criticality Noted Date [...] S) 8.6-50 MG per tabletIndications :Drug induced constipation,Security Coordinator 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 Active Saline Nasal [place] 0.65 % Nasal Solution ([place])Indication s:Epistaxis Administer into nostril 2 Sprays in the morning AND 2 Sprays before bedtime. 30 mL 12 2 Active Nitroglycerin 0.4 MG Sublingual Tablet Sublingual (Nitrostat)Indica tions:Atheroscler osis of [place] coronary artery of [place] heart without angina pectoris one tab under [...] NEEDED FOR ITCHING 60 mL 3 Active Atenolol 25 MG Oral Tablet (Tenormin)Indicat ions:HTN, goal below 140/90,Atheroscle rosis of [place] coronary artery of [place] heart without angina pectoris Take 1 tablet by mouth twice daily 200 Tablet 1 4 Active Aspirin 81 MG Oral Tablet Delayed Release Take 1 Tablet by mouth in the morning. 4 Active Silodosin 4 MG Oral Capsule (Rapaflo) Take 1 Tablet by mouth in the morning. 90 Capsule 3 4 Active Amoxicillin 500 MG Oral Capsule (Amoxil) TAKE FOUR CAPSULES BY MOUTH ONE HOUR BEFORE APPOINTMENT 4 Capsule 4 Active oxyCODONE HCl 5 MG Oral Tablet (Oxy IR)Indications:Ang[place] mbar degenerative disc disease,Spinal stenosis of lumbar region at multiple levels,Chronic bilateral low back pain with bilateral sciatica Take 1 Tablet by mouth every 8 hours as needed for Pain, Severe. 90 Tablet 4 Active amLODIPine Besylate 2.5 MG Oral Tablet (Norvasc)Indicati ons:HTN, goal below 140/90 TAKE 1 TABLET BY MOUTH IN THE MORNING 100 Tablet 1 4 Active amLODIPine Besylate 2.5 MG Oral Tablet (Norvasc)Indicati ons:HTN, goal below 140/90 Take 1 Tablet by mouth in the morning. 100 Tablet 1 4 01/18/20 24 Discontinued documented as of this encounter [...] CORONARY ATHEROSCLEROSIS OF UNSPECIFIED TYPE OF VESSEL, QUILEUTE OR GRAFT History of bladder cancer documented [...] mRNA, LNP-s, No Pre serve, 2-Dose Series ([employer]) 04/24/2021,09/06/2020,08/09/2020 Covid-19, Mrna, Lnp-s, Pf, B ivalent, 30 Mcg, IM, 12 yrs and above ([employer]) 05/19/2022 H1N1 2009 Influenza, IM 05/28/2009 [...] encounter Miscellaneous Notes * Telephone Encounter - Jerad Vivas [facility] - 01/18/2024 10:51 AM EDT Signed Prescriptions: Disp Refills amLODIPine Besylate 2.5 MG Oral Tablet (No*100 Ta*1 Sig: TAKE 1 TABLET BY MOUTH IN THE MORNINGAuthorizing Provider: ASAD SCALES AOrdering User: JERAD VIVAS AR YASMIN documented in this encounter Plan of Treatment Upcoming Encounters Date Type Department Care Team (Late st Contact Info) Description 01/24/2024 2:00 PM EDT Procedure Only Urology, [place] [address] [place] [address] Jose Lisa MD [address] [place] [address] 04/21/2024 2:20 PM EST Office Visit Family Practice [address] [place] [address] [address] [place] [address] Asad Scales, [address] [place] [address] 05/03/2024 1:45 PM EST Office Visit Urology, [place] [address] [place] [address] Baudilio Rosas MD [address] [place] [address] 08/08/2024 2:45 PM EST Office Visit Hematology/Oncology [place] [address] [place] [phone] Martir Lazar MD 200 [place] [address] 09/05/2024 4:00 PM EDT Office Visit Cardiology, [facility] [address] [facility] [address] Sridhar Fay [facility] [address] 09/26/2024 11:00 AM EDT Nurse Only Ancillary [address] [facility] [address] [place] [address] College, Nurse Annual Wellness Visit 65 [facility] 293 [place] [address] Health Maintenance Due Date Last Done Comments COVID-19 Vaccine ( season) 2023 05/19/2022, 04/24/2021, 09/06/2020, Additional history exists Influenza Vaccine (FLU shot) (#1) 2024 03/11/2023, 02/23/2022, 02/19/2021, Additional history exists Albumin/Creatinine Ratio 04/26/2024 023, 07/13/2022, 07/08/2021 CKD PHOS USE SMARTSET 27905 07/27/202407/09, 02/25/2022, 01/29/2021 Adult Wellness Visit 09/20/2024 09/21/2023, 01/30/2022, 01/29/2021 Depression Screening 09/20/2024 09/21/2023 CKD HGB USE SMARTSET 13142 11/28/202411/28, 11/29/2023, 07/27/2023, Additional history exists DTaP,Tdap,and [...] this encounter Medical Devices Implanted Type Area Test Grader Device Identifier Shelf Expiration Date Model / Serial / Lot Bifurcated Endograft Implanted:Qty: 1 on 03/29/2017 by Lisa Emerson MD at OR [facility] N/A: Aorta ENDOLOGIX 01/13/2018 [id number]/11 6-40 / [id number] / Proximal Endograft Implanted:Qty: 1 on 03/29/2017 by Lisa Emerson MD at OR [facility] N/A: Aorta ENDOLOGIX 01/16/2020 A25-25/C75- [id number] / [id number] / documented as of this encounter Visit Diagnoses Diagnosis HTN, goal below 140/90 Unspecified essential hypertension documented in this encounter Advance Directives * Full Code (Latest Code Status on File) Date Activated Date Inactivated Comments 03/29/2017 2:46 PM 03/31/2017 3:33 PM This order reflects the patients wishes and were consensually agreed upon. Care Teams Transmission Rebuilder Relationship Specialty Start Date End Date Asad Scales DO [address] [place] [address] PCP - General Internal Medicine 11/19/23 documented as of this encounter
--- OUTSIDE RECORDS SUMMARY | 2024-05-15 19:03 | External Medical Summary | Summary of Care ---
Author Name Unknown Organization [facility] Address [address] [place] [address] Phone [phone] Care Team Providers Care Plater Apprentice Name Role Phone Javon Scales DO Primary Care Provider [phone] Reason for Visit * Reason Comments Follow Up Encounter Details Date Type Department Care Team (Latest Contact Info) Description 01/12/2024 3:40 PM EDT Office Visit Family Practice 65 [facility] [address] [place] [address] Javon Scales DO [address] [place] [address] Atherosclerosis of [place] coronary artery of [place] heart without angina pectoris*; HTN, GOAL BELOW 140/90; DYSLIPIDEMIA, GOAL LDL BELOW 100; Benign prostatic hyperplasia with urinary retention; Thrombocytopenia (HCC); 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); Hypertensive kidney disease with stage 3a chronic kidney disease (HCC); H/O endovascular stent graft for abdominal aortic aneurysm; Malignant neoplasm of overlapping sites of bladder (HCC); History of lung cancer; Dysphagia, unspecified type Allergies Active Allergy Reactions Criticality Noted Date Comments Ciprofloxacin 09/27/2018 Stomach upset Finasteride Other (Please comment) 09/21/2023 Enlarged breast tissue Tamsulosin Hcl 01/14/2010 collapse Levofloxacin Other (Please comment) 03/05/2017 Hx of achilles tendon tear Atorvastatin Abdominal pain 12/23/2015 Lisinopril 03/11/2007 Caused pt to have blurred vision and become very flushed Simvastatin Abdominal pain 12/23/2015 documented as of this encounter (statuses as of 01/12/2024) Medications Medication Sig Dispensed Refills Start Date [...] 1 Capsule daily . Active Saline Nasal [place] 0.65 % Nasal Solution ([place])Indications: Epistaxis Administer into nostril 2 Sprays in the morning AND 2 Sprays before bedtime. 30 mL 12 07/29/2021 Active Nitroglycerin 0.4 MG Sublingual Tablet Sublingual (Nitrostat)Indicati ons:Atherosclerosis of [place] coronary artery of [place] heart without angina pectoris one tab under [...] (Tenormin)Indicatio ns:HTN, goal below 140/90,Atherosclero sis of [place] coronary artery of [place] heart without angina pectoris Take 1 tablet [...] as of this encounter (statuses as of 01/12/2024) Active Problems Problem Noted Date Diagnosed Date [...] CORONARY ATHEROSCLEROSIS OF UNSPECIFIED TYPE OF VESSEL, TUOLUMNE OR GRAFT History of bladder cancer documented as of this encounter (statuses as of 01/12/2024) Resolved Problems Problem Noted Date Diagnosed Date [...] stent and embolization 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/10 [facility] 08/09:1 month s/p reintervention [...] as of this encounter (statuses as of 01/12/2024) Immunizations Name Administration Dates Next Due COVID-19 mRNA, LNP-s, No Pre serve, 2-Dose Series ([employer]) 04/24/2021,09/06/2020,08/09/2020 Covid-19, Mrna, Lnp-s, Pf, B ivalent, 30 Mcg, IM, 12 yrs and above ([employer]) 05/19/2022 H1N1 2009 Influenza, IM 05/28/2009 [...] Does the household have a [facility] source of income? (Household - for [...] Sign Reading Time Taken Comments Blood Pressure 148/74 01/12/2024 2:56 PM EDT Pulse 64 01/12/2024 2:56 PM EDT Temperature 36.8 C (98.3 F) 01/12/2024 2:56 PM ED T Respiratory Rate 14 01/12/2024 2:56 PM EDT Oxygen Saturation 95% 01/12/2024 2:56 PM EDT Inhaled Oxygen Concentration - - Weight 64.4 kg (142 lb) 01/12/2024 2:56 PM EDT Height 161.9 cm (5' 3.75") 01/12/2024 2:56 PM ED T Body Mass Index 24.57 01/12/2024 2:56 PM EDT documented in this [...] encounter Progress Notes * Javon Scales, - 01/12/2024 4:21 PM EDT SUBJECTIVE: Cedric Sam Jr. is a 88 year old male. 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 Chronic low back pain and bilateral hip pain is unchanged. No falls. No chest pain or shortness of breath. Dysphagia has resolved and appetite has improved. EGD was cancelled. He continues to follow with Cardiology, Urology and Oncology. 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 Saline Nasal [place] 0.65 % Nasal Solution ([place]) Administer into nostril 2 Sprays in the morning AND 2 Sprays before bedtime. 30 mL 12 Pravastatin Sodium 20 MG Oral Tablet (Pravachol) TAKE 1 TABLET BY MOUTH ONCE DAILY AT BEDTIME 100 Tablet 3 amLODIPine Besylate 2.5 MG Oral Tablet (Norvasc) Take 1 Tablet by mouth in the morning. 100 Tablet 1 Atenolol 25 MG Oral Tablet (Tenormin) Take 1 tablet by mouth twice daily 200 Tablet 1 Aspirin 81 MG Oral Tablet Delayed Release Take 1 Tablet by mouth in the morning. Silodosin 4 MG Oral Capsule (Rapaflo) Take 1 Tablet by mouth in the morning. 90 Capsule 3 Amoxicillin 500 MG Oral Capsule (Amoxil) TAKE FOUR CAPSULES BY MOUTH ONE HOUR BEFORE APPOINTMENT 4 Capsule 0 oxyCODONE HCl 5 MG Oral Tablet (Oxy IR) Take 1 Tablet by mouth every 8 hours as needed for Pain, Severe. 90 Tablet 0 VITAMIN B-6 100 MG PO TABS 200mg three times per week 0 TUMS 500 MG PO CHEW as needed clotrimazole-betamethasone (LOTRISONE) 1-0.05 % cream APPLY TOPICALLY TO RIGHT LEG AREA TWICE [id number] 5 Triamcinolone Acetonide 0.1 % External [...] years COLONOSCOPY, DIAGNOSTIC (RECTUM) 10/23/2015 benign polyps, diverticulosis/[facility] CYSTO/URETERO W/LITHOTRIPSY Right 02/28/2019 CYSTOURETHROSCOPY URETEROSCOPY WITH LITHOTRIPSY AND STENT INSERTION performed by Alen Aguilar MD at OR [facility] CYSTOSCOPY 03-05-2010 CYSTOSCOPY/INSERTION OF STENT Right 12/19/2018 CYSTOURETHROSCOPY WITH INSERTION URETERAL STENT performed by Alen Aguilar MD at OR [facility] CYSTOSCOPY/TREAT LGE BLADDER TUMOR N/A 10/07/2018 CYSTOURETHROSCOPY WITH FULGURATION LARGE BLADDER TUMOR performed by Alen Aguilar MD at [facility] CYSTOSCOPY/TREAT LGE BLADDER TUMOR N/A 05/22/2021 CYSTOURETHROSCOPY WITH FULGURATION LARGE BLADDER TUMOR performed by Alysa Valente MD at OR [facility] CYSTOURETERO W/BIOPSY Right 12/19/2018 CYSTOURETHROSCOPY URETEROSCOPY WITH BIOPSY AND OR FULGURATION LESION performed by Alen Aguilar MD at OR [facility] CYSTOURETERO W/BIOPSY N/A 02/28/2019 CYSTOURETHROSCOPY URETEROSCOPY WITH BIOPSY AND OR FULGURATION LESION performed by Alen Aguilar MD at OR [facility] CYSTOURETERO W/BIOPSY Bilateral 09/21/2019 CYSTOURETHROSCOPY URETEROSCOPY WITH BIOPSY AND OR FULGURATION LESION performed by Alysa Valente MD at OR [facility] CYSTOURETHROSCOPY W/BIOPSY N/A 05/22/2021 CYSTOURETHROSCOPY WITH BIOPSY performed by Alysa Valente MD at OR [facility] ENDOVASC ABDO REPR W/BI DEVICE N/A 03/29/2017 ENDOVASCULAR REPAIR ABDOMINAL AORTIC ANEURYSM BIF PROS 1 LIMB performed by Lisa Emerson MD at OR [facility] FLUORO PYELOGRAM RETROGRADE Left 02/28/2019 UROGRAHY, RETROGRADE, WITH OR WITHOUT KUB performed by Alen Aguilar MD at OR [facility] FLUORO PYELOGRAM RETROGRADE Bilateral 09/21/2019 UROGRAHY, RETROGRADE, WITH OR WITHOUT KUB performed by Alysa Valente MD at OR [facility] INFORMATION open heart surgery [facility] INFORMATION 07/1999 bladder [facility] danella INFORMATION 03/29/2017 model# NFB98-12/116-40 AFX Endovascular AAA Stent Graft Extension INFORMATION 03/29/2017 model# A25-25/G66-S27D AFX Endovascular AAA Stent Limb Extension INJECT DX/THER SUBSTANCE INTERLAMINAR LUMBAR/SACRAL W IMAGE GUIDE 05/25/2019 INJECTION SPINE LUMBAR OR SACRAL performed by Michel Gil DO at OR [facility] INJECT DX/THER SUBSTANCE INTERLAMINAR LUMBAR/SACRAL W IMAGE GUIDE 06/22/2019 INJECTION SPINE LUMBAR OR SACRAL performed by Michel Gil, DO at OR [facility] INJECT DX/THER SUBSTANCE INTERLAMINAR LUMBAR/SACRAL W IMAGE GUIDE 02/01/2020 INJECTION SPINE LUMBAR OR SACRAL performed by Michel Gil DO at OR [facility] IOF CT GUIDED NEEDLE BIOPSY 03/06/2011 CT GUIDED NEEDLE ASPIRATION BIOPSY performed by DUDLEY WARNER at RADIOLOGY [facility] IR ENDOVASCULAR REPAIR ILIAC 04/17/04 right common iliac aneurysm stent graft repair, right hypogastric embolization, Dr. 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 [place]halla REMOVAL OF TONSILS, UNDER AGE 12 Tonsils Removal,<12 Y/O Review of patient's allergies indicates: Allergen Reactions Ciprofloxacin Stomach upset Finasteride Other (Please comment) Enlarged breast tissue Flomax [Tamsulosin Hcl] collapse Levaquin [Levofloxacin] Other (Please comment) Hx of achilles tendon tear Lipitor [Atorvastatin] Abdominal pain Lisinopril Caused pt to have blurred vision and become very flushed Zocor [Simvastatin] Abdominal pain Review of Systems Constitutional: Negative for appetite change, fatigue and unexpected weight change. HENT: Negative for congestion, sore throat and trouble swallowing. Respiratory: Negative for cough, shortness of breath and wheezing. Cardiovascular: Negative for chest pain, palpitations and leg swelling. Gastrointestinal: Negative for abdominal pain, blood in stool, constipation, diarrhea, nausea and vomiting. Genitourinary: Positive for frequency. Negative for dysuria and hematuria. Musculoskeletal: Positive for back pain. Bilateral hip pain Neurological: Negative for dizziness, syncope and headaches. Psychiatric/Behavioral: Negative for confusion, decreased concentration and sleep disturbance. OBJECTIVE: BP 148/74 | Pulse 64 | Temp 36.8 C (98.3 F) (Tympanic) | Resp 14 | Ht 1.619 m (5' 3.75") | Wt 64.4 kg (142 lb) | SpO2 95% | BMI 24.57 kg/m | BSA 1.7 m Physical Exam Vitals and nursing note [...] content normal. PLAN AND ASSESSMENT: Atherosclerosis of [place] coronary artery of [place] heart without angina pectoris (Primary) Continue Atenolol and ASA HTN, GOAL BELOW 140/90 Continue Amlodipine, and Atenolol DYSLIPIDEMIA, GOAL LDL BELOW 100 Continue Pravastatin Benign prostatic hyperplasia with urinary retention Continue Silodosin Thrombocytopenia (HCC) Stable 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) Hypertensive kidney disease with stage 3a chronic kidney disease (HCC) Contineu Amlodipine H/O endovascular stent graft for abdominal aortic aneurysm Malignant neoplasm of overlapping sites of bladder (HCC) Continue to follow with Urology for Cystoscopy History of lung cancer Continue to follow with oncology Dysphagia, unspecified type Resolved. Follow for return of symptoms. Follow Up: Return in about 3 months (around 04/13/2024), or if symptoms worsen or fail to improve. Javon Scales DO 4:21 PM 01/12/2024 documented in this encounter Nursing Notes * Kelli Mota LPN - 01/12/2024 2:55 PM EDT Patient presents for follow up, voices no complaints. documented in this encounter Plan of Treatment Upcoming Encounters Date Type Department Care Team (Late st Contact Info) Description 01/14/2024 12:30 PM EDT Imaging Radiology [address] [place] [address] 01/24/2024 2:00 PM EDT Procedure Only Urology, [place] [address] [place] [address] Jose Lisa MD [address] [place] [address] 04/21/2024 2:20 PM EST Office Visit Family Practice [address] [facility] [place] [address] [place] [address] Javon Scales DO [address] [place] [address] 05/03/2024 1:45 PM EST Office Visit Urology, [place] [address] [place] [address] Baudilio Rosas MD [address] [place] [address] 08/07/2024 2:30 PM EST Office Visit Hematology/Oncology [facility] 200 [facility] [place] [phone] Funmilayo Peter MD 200 [facility] [place] [address] 09/05/2024 4:00 PM EDT Office Visit Cardiology, [facility] [place] [address] Sridhar Fay MD [address] [place] [address] 09/26/2024 11:00 AM EDT Nurse Only Ancillary 65 [facility] 293 [place] [address] College, Nurse Annual Wellness Visit [address] [address] Health Maintenance Due Date Last Done Comments COVID-19 Vaccine ( season) 2024 05/19/2022, 04/24/2021, 09/06/2020, Additional history exists Postponed from 02/05/2023 (Patient Declined After Education) Influenza Vaccine (FLU shot) (#1) 2024 03/11/2023, 02/23/2022, 02/19/2021, Additional history exists Albumin/Creatinine Ratio 04/26/2024 023, 07/13/2022, 07/08/2021 CKD PHOS USE SMARTSET 65603 07/27/202407/09, 02/25/2022, 01/29/2021 Adult Wellness Visit 09/20/2024 09/21/2023, 01/30/2022, 01/29/2021 Depression Screening 09/20/2024 09/21/2023 CKD HGB USE SMARTSET 50043 11/28/202411/28, 11/29/2023, 07/27/2023, Additional history exists DTaP,Tdap,and [...] this encounter Medical Devices Implanted Type Area Watch Adjuster Device Identifier Shelf Expiration Date Model / Serial / Lot Bifurcated Endograft Implanted:Qty: 1 on 03/29/2017 by Lisa Emerson MD at OR [facility] N/A: Aorta ENDOLOGIX 01/13/2018 GIL72-51/11 6-40 / [id number] / Proximal Endograft Implanted:Qty: 1 on 03/29/2017 by Lisa Emerson MD at OR [facility] N/A: Aorta ENDOLOGIX 01/16/2020 A25-25/C75- O20V / [id number] / documented as of this encounter Visit Diagnoses Diagnosis Atherosclerosis of [place] coronary artery of [place] heart without angina pectoris- Primary HTN, GOAL BELOW 140/90 Unspecified essential hypertension DYSLIPIDEMIA, GOAL LDL BELOW 100 Other and unspecified hyperlipidemia Benign prostatic hyperplasia with urinary retention Thrombocytopenia (HCC) Thrombocytopenia, unspecified 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) Polyneuropathy in other diseases classified elsewhere Hypertensive kidney disease with stage 3a chronic kidney disease (HCC) H/O endovascular stent graft for abdominal aortic aneurysm Blood vessel replaced by other means Malignant neoplasm of overlapping sites of bladder (HCC) Malignant neoplasm of other specified sites of bladder History of lung cancer Personal history of malignant neoplasm of bronchus and lung Dysphagia, unspecified type documented in this encounter Advance Directives * Full Code (Latest Code Status on File) Date Activated Date Inactivated Comments 03/29/2017 2:46 PM 03/31/2017 3:33 PM This order reflects the patients wishes and were consensually agreed upon. Care Teams Plater Apprentice Relationship Specialty Start Date End Date Javon Scales DO [address] [place] [address] PCP - General Internal Medicine 11/19/23 documented as of this encounter
--- OUTSIDE RECORDS SUMMARY | 2024-05-15 19:03 | External Medical Summary | Summary of Care ---
Author Name Unknown Organization [facility] Address [address] [place] [address] Phone [phone] Care Team Providers Care Live In Companion Name Role Phone Javon Scales DO Primary Care Provider Reason for Visit * Reason Comments Follow Up Encounter Details Date Type Department Care Team (Latest Contact Info) Description 01/12/2024 3:40 PM EDT Office Visit Family Practice 65 [facility] [address] [place] [address] Javon Scales DO [address] [place] [address] Atherosclerosis of benton coronary artery of benton heart without angina pectoris*; HTN, GOAL BELOW [...] 1 Capsule daily . Active Saline Nasal [place] 0.65 % Nasal Solution ([place])Indications: Epistaxis Administer into nostril 2 Sprays in the morning AND 2 Sprays before bedtime. 30 mL 12 07/29/2021 Active Nitroglycerin 0.4 MG Sublingual Tablet Sublingual (Nitrostat)Indicati ons:Atherosclerosis of [place] coronary artery of benton heart without angina pectoris one tab under [...] (Tenormin)Indicatio ns:HTN, goal below 140/90,Atherosclero sis of benton coronary artery of benton heart without angina pectoris Take 1 tablet [...] CORONARY ATHEROSCLEROSIS OF UNSPECIFIED TYPE OF VESSEL, [place] OR GRAFT History of bladder cancer documented [...] embolization 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 [facility] [place]1 month s/p reintervention for his R [...] mRNA, LNP-s, No Pre serve, 2-Dose Series (Superbac) 04/24/2021,09/06/2020,08/09/2020 Covid-19, Mrna, Lnp-s, Pf, B ivalent, 30 Mcg, IM, 12 yrs and above (Superbac) 05/19/2022 H1N1 2009 Influenza, IM 05/28/2009 Influenza, [...] No 04/26/2023 Does the household have a [facility] source of income? (Household - for [...] CORONARY ATHEROSCLEROSIS OF UNSPECIFIED TYPE OF VESSEL, [place] OR GRAFT History of bladder cancer Macular [...] mouth 1 Capsule daily . Saline Nasal [place] 0.65 % Nasal Solution ([place]) Administer into nostril 2 Sprays in the [...] APPLY TOPICALLY TO RIGHT LEG AREA TWICE [id number] g 5 Triamcinolone Acetonide 0.1 % External [...] years COLONOSCOPY, DIAGNOSTIC (RECTUM) 10/23/2015 benign polyps, diverticulosis/[facility] CYSTO/URETERO W/LITHOTRIPSY Right 02/28/2019 CYSTOURETHROSCOPY URETEROSCOPY WITH LITHOTRIPSY AND STENT INSERTION performed by Alen Aguilar [place] [facility] [place] 03-05-2010 CYSTOSCOPY/INSERTION OF STENT Right 12/19/2018 CYSTOURETHROSCOPY WITH INSERTION URETERAL STENT performed by Alen Aguilar MD at [place] [facility] CYSTOSCOPY/TREAT LGE BLADDER TUMOR N/A 10/07/2018 CYSTOURETHROSCOPY WITH FULGURATION LARGE BLADDER TUMOR performed by Alen Aguilar MD at [facility] CYSTOSCOPY/TREAT LGE BLADDER TUMOR N/A 05/22/2021 CYSTOURETHROSCOPY WITH FULGURATION LARGE BLADDER TUMOR performed by Alysa Valente MD [place] [facility] CYSTOURETERO W/BIOPSY Right 12/19/2018 CYSTOURETHROSCOPY URETEROSCOPY WITH BIOPSY AND OR FULGURATION LESION performed by Alen Aguilar MD [place] [facility] CYSTOURETERO W/BIOPSY N/A 02/28/2019 CYSTOURETHROSCOPY URETEROSCOPY WITH BIOPSY AND OR FULGURATION LESION performed by Alen Aguilar MD [place] [facility] CYSTOURETERO W/BIOPSY Bilateral 09/21/2019 CYSTOURETHROSCOPY URETEROSCOPY WITH BIOPSY AND OR FULGURATION LESION performed by Alysa Valente MD [place] [facility] CYSTOURETHROSCOPY W/BIOPSY N/A 05/22/2021 CYSTOURETHROSCOPY WITH BIOPSY performed by Alysa Valente MD [place] [facility] ENDOVASC ABDO REPR W/BI DEVICE N/A 03/29/2017 ENDOVASCULAR REPAIR ABDOMINAL AORTIC ANEURYSM BIF PROS 1 LIMB performed by Lisa Emerson MD [place] [facility] FLUORO PYELOGRAM RETROGRADE Left 02/28/2019 UROGRAHY, RETROGRADE, WITH OR WITHOUT KUB performed by Alen Aguilar MD [place] [facility] FLUORO PYELOGRAM RETROGRADE Bilateral 09/21/2019 UROGRAHY, RETROGRADE, WITH OR WITHOUT KUB performed by Alysa Valente MD [place] [facility] INFORMATION open heart surgery [facility] INFORMATION 07/1999 bladder [facility] danella INFORMATION 03/29/2017 model# EKI55-79/116-40 AFX Endovascular AAA Stent Graft Extension INFORMATION 03/29/2017 model# A25-25/K62-T11D AFX Endovascular AAA Stent Limb Extension INJECT DX/THER SUBSTANCE INTERLAMINAR LUMBAR/SACRAL W IMAGE GUIDE 05/25/2019 INJECTION SPINE LUMBAR OR SACRAL performed by Michel Gil DO at OR [facility] INJECT DX/THER SUBSTANCE INTERLAMINAR LUMBAR/SACRAL W IMAGE GUIDE 06/22/2019 INJECTION SPINE LUMBAR OR SACRAL performed by Michel Gil, DO at OR [facility] INJECT DX/THER SUBSTANCE INTERLAMINAR LUMBAR/SACRAL W IMAGE GUIDE 02/01/2020 INJECTION SPINE LUMBAR OR SACRAL performed by Michel Gil DO at OR [facility] IOF CT GUIDED NEEDLE BIOPSY 03/06/2011 CT GUIDED NEEDLE ASPIRATION BIOPSY performed by DUDLEY WARNER at [place] [facility] IR ENDOVASCULAR REPAIR ILIAC 04/17/04 right common iliac aneurysm stent graft repair, right hypogastric embolization, Dr. 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 Caruthers REMOVAL OF TONSILS, UNDER AGE 12 Tonsils [...] content normal. PLAN AND ASSESSMENT: Atherosclerosis of benton coronary artery of benton heart without angina pectoris (Primary) Continue Atenolol [...] Description 01/14/2024 12:30 PM EDT Imaging Radiology [address] [place] [address] 01/24/2024 2:00 PM EDT Procedure Only Urology, [place] [address] [place] [address] Jose Lisa MD [address] [place] [address] 04/21/2024 2:20 PM EST Office Visit Family Practice 65 [facility] [place] [address] [place] [address] Javon Scales DO [address] [place] [address] 05/03/2024 1:45 PM EST Office Visit Urology, [place] [address] [place] [address] Baudilio Rosas MD [address] [place] [address] 08/07/2024 2:30 PM EST Office Visit Hematology/Oncology [facility] [address] [place] [phone] Funmilayo Peter MD [address] [place] [address] 09/05/2024 4:00 PM EDT Office Visit Cardiology, [facility] 132 [facility] [place] [address] Sridhar Fay MD [address] [place] [address] 09/26/2024 11:00 AM EDT Nurse Only Ancillary 65 [facility] 293 [facility] [address] College, Nurse Annual Wellness Visit [address] [address] Health Maintenance Due Date Last Done Comments COVID-19 Vaccine ( season) 2024 05/19/2022, 04/24/2021, 09/06/2020, Additional history exists Postponed from 02/05/2023 (Patient Declined After Education) Influenza Vaccine (FLU shot) (#1) 2024 03/11/2023, 02/23/2022, 02/19/2021, Additional history exists Albumin/Creatinine Ratio 04/26/2024 023, 07/13/2022, 07/08/2021 CKD PHOS USE SMARTSET 16831 07/27/202407/09, 02/25/2022, 01/29/2021 Adult Wellness Visit 09/20/2024 09/21/2023, 01/30/2022, 01/29/2021 Depression Screening 09/20/2024 09/21/2023 CKD HGB USE SMARTSET 77656 11/28/202411/28, 11/29/2023, 07/27/2023, Additional history exists DTaP,Tdap,and [...] this encounter Medical Devices Implanted Type Area Motorcycle Police Device Identifier Shelf Expiration Date Model / Serial / Lot Bifurcated Endograft Implanted:Qty: 1 on 03/29/2017 by Lisa Emerson MD [place] [facility] N/A: Aorta ENDOLOGIX 01/13/2018 [id number]/11 6-40 / [id number] / Proximal Endograft Implanted:Qty: 1 on 03/29/2017 by Lisa Emerson MD [place] [facility] N/A: Aorta ENDOLOGIX 01/16/2020 A25-25/C75- O20V / [id number] / documented as of this encounter Visit Diagnoses Diagnosis Atherosclerosis of benton coronary artery of benton heart without angina pectoris- Primary HTN, GOAL [...] and were consensually agreed upon. Care Teams Live In Companion Relationship Specialty Start Date End Date Javon Scales DO [address] [place] [address] PCP - General Internal Medicine 11/19/23 documented as of this encounter
--- OUTSIDE RECORDS SUMMARY | 2024-05-15 19:05 | External Medical Summary | Summary of Care ---
Author Name Unknown Organization [facility] Address [address] [place] [address] Phone [phone] Care Team Providers Care Payroll Supervisor Name Role Phone Asad Scales DO Primary Care Provider [phone] Reason for Visit * Reason Onset Date Comments Medication Refill 01/06/2024 Encounter Details Date Type Department Care Team (Late st Contact Info) Description 01/06/2024 Refill Family Practice 65 [facility] [place] [address] [place] [phone] Asad Scales DO [address] [place] [address] Lumbar degenerative disc disease; Spinal stenosis of [...] as of this encounter (statuses as of 01/07/2024) Medications Medication Sig Dispensed Refills Start Date [...] S) 8.6-50 MG per tabletIndications :Drug induced constipation,Sizing End Bander 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 Active Saline Nasal [place] 0.65 % Nasal Solution ([place])Indication s:Epistaxis Administer into nostril 2 Sprays in the morning AND 2 Sprays before bedtime. 30 mL 12 07/29/2021 Active Nitroglycerin 0.4 MG Sublingual Tablet Sublingual (Nitrostat)Indica tions:Atheroscler osis of [place] coronary artery of [place] heart without angina pectoris one tab under [...] 06/22/2023 Active Atenolol 25 MG Oral Tablet (Tenormin)Indicat ions:HTN, goal below 140/90,Atheroscle rosis of [place] coronary artery of [place] heart without angina pectoris Take 1 tablet [...] for Pain, Severe. 90 Tablet 01/07/2024 Active predniSONE 20 MG Oral Tablet (Deltasone)Indica tions:Neck pain Take 1 Tablet by mouth in the morning and 1 Tablet before bedtime. Do all this for 5 days. 10 Tablet 01/06/2024 4 Active oxyCODONE HCl 5 MG Oral Tablet (Oxy IR)Indications:[place] mbar degenerative disc disease,Spinal stenosis of lumbar region at multiple levels,Chronic bilateral low back pain with bilateral sciatica Take 1 Tablet by mouth every 8 hours as needed for Pain, Severe. 90 Tablet 12/10/2023 4 Discontinue d(Refill) documented as of this encounter (statuses as of 01/07/2024) Active Problems Problem Noted Date Diagnosed Date [...] CORONARY ATHEROSCLEROSIS OF UNSPECIFIED TYPE OF VESSEL, [place] OR GRAFT History of bladder cancer documented as of this encounter (statuses as of 01/07/2024) Resolved Problems Problem Noted Date Diagnosed Date [...] embolization 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/10 [facility]1 month s/p reintervention for [...] as of this encounter (statuses as of 01/07/2024) Immunizations Name Administration Dates Next Due COVID-19 mRNA, LNP-s, No Pre serve, 2-Dose Series ([employer]) 04/24/2021,09/06/2020,08/09/2020 Covid-19, Mrna, Lnp-s, Pf, B ivalent, 30 Mcg, IM, 12 yrs and above ([employer]) 05/19/2022 H1N1 2009 Influenza, IM 05/28/2009 Influenza, [...] Telephone Encounter - Asad Scales DO - 01/07/2024 12:01 PM EDTSigned Prescriptions: Disp Refills oxyCODONE HCl 5 MG Oral Tablet (Oxy IR) 90 Tab*0 Sig: Take 1 Tablet by mouth every 8 hours as needed for Pain, Severe.Authorizing Provider: ASAD SCALES * Telephone Encounter - Asad Scales DO - 01/07/2024 12:00 PM EDT I have reviewed the patients controlled substance dispensing history in the Prescription Drug Monitoring Program in compliance with the [facility] regulations before prescribing a controlled substance. Last [...] found in Results Review. Medication is due 01/08 01/08 is a Wednesday. Will refill today * Telephone Encounter - [facility]ily[facility] - 01/06/2024 12:42 PM EDTPending Prescriptions: Disp Refills oxyCODONE HCl 5 MG Oral Tablet (Oxy IR) 90 Tab*0 Sig: Take 1 Tablet by mouth every 8 hours as needed for Pain, Severe. * Telephone Encounter - Jerilyn [facility] - 01/06/2024 12:41 PM EDT I have reviewed the patients controlled substance dispensing history in the Prescription Drug Monitoring Program in compliance with the [facility] regulations before prescribing a controlled substance. PDMP checked on 01/06/2024. Pending Prescriptions: Disp Refills oxyCODONE HCl 5 MG Oral Tablet (Oxy IR) 90 Tab*0 Sig: Take 1 Tablet by mouth every 8 hours as needed for Pain, Severe. Last Visit: 11/29/2023 (in office), 11/29/2023 (telemedicine) Next Visit: 01/06/2024 Date medication was last filled: 12/10/23 Date medication is due for refill: 01/09/24 Pharmacy: [facility] [address] [place] [address] Is this request for a controlled substance? [...] Results Review. Please approve if appropriate. Thanks, Jerilyn White, PharmD Clinical Pharmacist [facility] [phone] 01/06/2024 12:41 PM * Telephone Encounter - Stacie Lai, client service manager - 01/06/2024 8:26 AM EDT Did you pend patient's preferred pharmacy and medication before forwarding?yes Pharmacy: [facility] [address] [place] [address] [place] [address] Pending Prescriptions: Disp Refills oxyCODONE HCl 5 MG Oral Tablet (Oxy IR) 90 Tab*0 Sig: Take 1 Tablet by mouth every 8 hours as needed for Pain, Severe. Last Visit: 11/29/2023 (in office), 11/29/2023 (telemedicine) Next Visit: 01/12/2024 If no future appointments scheduled, and last appointment is greater than a year ago, please schedule patient for a follow-up appointment Last date the medication was ordered: 12/10/2023 Is this request for a controlled substance?Yes, What was the last refill date 12/10/2023 w/ quantity 90 and dosage 5 mg and Urine Drug Screen Not completed Urine [...] 02:09 PM TSH 1.59 04/11/2010 11:44 AM LDLCALC 82 04/26/2023 02:03 PM LDLCALC 78 01/23/2020 10:50 AM LDLDIRECT NOT APPLICABLE 01/23/2020 10:50 AM LDLDIRECT 87 08/14/2010 02:42 PM ALT 14 11/29/2023 02:09 PM ALT 16 01/23/2020 10:50 AM documented in this encounter Plan of Treatment Upcoming Encounters Date Type Department Care Team (Late st Contact Info) Description 01/12/2024 3:40 PM EDT Office Visit Family Practice [address], [place] 293 [facility] [place] [address] Asad Scales, 293 [place] [address] 01/14/2024 12:30 PM EDT Imaging Radiology [facility]st [facility] 132 [facility] [address] 01/24/2024 2:00 PM EDT Procedure Only Urology, [place] [address] [place] [address] Jose Lisa MD [address] [place] [address] 05/03/2024 1:45 PM EST Office Visit Urology, [place] [address] [place] [address] Baudilio Rosas MD [address] [place] [address] 08/07/2024 2:30 PM EST Office Visit Hematology/Oncology [facility] 200 [facility] [place], [place] [phone] Funmilayo Peter MD [address] [place] [place] [address] 09/05/2024 4:00 PM EDT Office Visit Cardiology, [facility] 132 [facility] [place] [address] Sridhar Fay MD 132 [facility] [place] [address] 09/26/2024 11:00 AM EDT Nurse Only Ancillary [address], [place] 293 [facility] [place] [address] College, Nurse Annual Wellness Visit [address] [facility] 293 [facility] [place] [address] Health Maintenance Due Date Last Done Comments COVID-19 Vaccine ( season) 2023 05/19/2022, 04/24/2021, 09/06/2020, Additional history exists Influenza Vaccine (FLU shot) (#1) 2024 03/11/2023, 02/23/2022, 02/19/2021, Additional history exists Albumin/Creatinine Ratio 04/26/2024 023, 07/13/2022, 07/08/2021 CKD PHOS USE SMARTSET 57111 07/27/202407/09, 02/25/2022, 01/29/2021 Depression Screening 09/20/2024 09/21/2023 CKD HGB USE SMARTSET 60265 11/28/202411/28, 11/29/2023, 07/27/2023, Additional history exists DTaP,Tdap,and [...] encounter Medical Devices Implanted Type Area Motorcycle Sales Associate Device Identifier Shelf Expiration Date Model / Serial / Lot Bifurcated Endograft Implanted:Qty: 1 on 03/29/2017 by Lisa Emerson MD at [place] [facility] N/A: Aorta ENDOLOGIX 01/13/2018 [id number]/11 6-40 / [id number] / Proximal Endograft Implanted:Qty: 1 on 03/29/2017 by Lisa Emerson MD at OR [facility] N/A: Aorta ENDOLOGIX 01/16/2020 A25-25/C75- O20V / [id number] / documented as of this encounter Visit [...] and were consensually agreed upon. Care Teams Payroll Supervisor Relationship Specialty Start Date End Date Asad Scales DO [address] [place] [address] PCP - General Internal Medicine 11/19/23 documented as of this encounter
--- OUTSIDE RECORDS SUMMARY | 2024-05-15 19:05 | External Medical Summary | Summary of Care ---
Author Name Unknown Organization [facility] Address [address] [place] [address] Phone [phone] Care Team Providers Care Weight Tester Name Role Phone Javon Scales DO Primary Care Provider Reason for Visit * Reason Onset Date Comments Appointment 01/06/202401/05 Encounter Details Date Type Department Care Team (Late st Contact Info) Description 01/06/2024 Telephone Family Practice 65 [facility] [address] [place] [phone] Javon Scales DO [address] [place] [address] Appointment (01/05) Allergies Active Allergy Reactions Criticality Noted Date Comments Ciprofloxacin 09/27/2018 Stomach upset Finasteride Other (Please comment) 09/21/2023 Enlarged breast tissue Tamsulosin Hcl 01/14/2010 collapse Levofloxacin Other (Please comment) 03/05/2017 Hx of achilles tendon tear Atorvastatin Abdominal pain 12/23/2015 Lisinopril 03/11/2007 Caused pt to have blurred vision and become very flushed Simvastatin Abdominal pain 12/23/2015 documented as of this encounter (statuses as of 01/06/2024) Medications Medication Sig Dispensed Refills Start Date [...] by mouth daily. 06/14/2013 Active MIRALAX PO POWDIndications:Ot her constipation Dissolve one heaping tablespoon in 8 ounces of water or juice - one dose per day for constipation 1 Bottle 2 05/14/2014 Active fluticasone (FLONASE) 50 MCG/ACT nasal sprayIndications:B [...] 1 Capsule daily . Active Saline Nasal [place] 0.65 % Nasal Solution ([place])Indications :Epistaxis Administer into nostril 2 Sprays in the morning AND 2 Sprays before bedtime. 30 mL 12 07/29/2021 Active Nitroglycerin 0.4 MG Sublingual Tablet Sublingual (Nitrostat)Indicat ions:Atheroscleros is of [place] coronary artery of [place] heart without angina pectoris one tab under [...] Oral Tablet (Norvasc)Indicatio ns:HTN, goal below 140/90 Take 1 Tablet by mouth in the morning. 100 Tablet 1 06/22/2023 Active Atenolol 25 MG Oral Tablet (Tenormin)Indicati ons:HTN, goal below 140/90,Atheroscler osis of [place] coronary artery of [place] heart without angina pectoris Take 1 tablet by mouth twice daily 200 Tablet 1 07/04/2023 Active Aspirin 81 MG Oral Tablet Delayed Release Take 1 Tablet by mouth in the morning. 09/08/2023 Active Silodosin 4 MG Oral Capsule (Rapaflo) Take 1 Tablet by mouth in the morning. 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 90 Tablet 12/10/2023 Active Amoxicillin 500 MG Oral Capsule (Amoxil) TAKE FOUR CAPSULES BY MOUTH ONE HOUR BEFORE APPOINTMENT 4 Capsule 12/27/2023 Active predniSONE 20 MG Oral Tablet (Deltasone)Indicat ions:Neck pain Take 1 Tablet by mouth in the morning and 1 Tablet before bedtime. Do all this for 5 days. 10 Tablet 01/06/2024 01/11/2024 Active documented as of this encounter (statuses as of 01/06/2024) Active Problems Problem Noted Date Diagnosed Date [...] CORONARY ATHEROSCLEROSIS OF UNSPECIFIED TYPE OF VESSEL, [place] OR GRAFT History of bladder cancer documented as of this encounter (statuses as of 01/06/2024) Resolved Problems Problem Noted Date Diagnosed Date [...] stent and embolization 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/10 [facility] [place] 08/09:1 month s/p reintervention for [...] as of this encounter (statuses as of 01/06/2024) Immunizations Name Administration Dates Next Due COVID-19 mRNA, LNP-s, No Pre serve, 2-Dose Series ([employer]) 04/24/2021,09/06/2020,08/09/2020 Covid-19, Mrna, Lnp-s, Pf, B ivalent, 30 Mcg, IM, 12 yrs and above ([employer]) 05/19/2022 H1N1 2009 Influenza, IM 05/28/2009 [...] Telephone Encounter - Janice Robles LPN - 01/06/2024 8:56 AM EDT Call placed to patients daughter Lore. States pt is having neck pain, thinks he turned his head and did something. Dtr thinks it may have happened over the weekend. Using heating pad without relief. No difficulty swallowing, no increased weakness in extremities, no changes bowel/bladder. Offered appt today at 1:40 - daughter in agreement. desktop engineer - please place on Dr. Jean's schedule at 1:40 today. * Telephone Encounter - Christa Paredes OSA - 01/06/2024 8:23 AM EDT Daughter called father has serious pain Daughter would like him to be seen Neck pain thinks he did something documented in this encounter Plan of Treatment Upcoming Encounters Date Type Department Care Team (Late st Contact Info) Description 01/12/2024 3:40 PM EDT Office Visit Family Practice [address], [place] [address] [place] [address] Javon Scales, [address] [place] [address] 01/14/2024 12:30 PM EDT Imaging Radiology [facility] 1st [facility] 132 [facility] [place] [address] 01/24/2024 2:00 PM EDT Procedure Only Urology, [place] [address] [place] [address] Jose Lisa MD [address] [place] [address] 05/03/2024 1:45 PM EST Office Visit Urology, [place] [address] [place] [address] Baudilio Rosas MD [address] [place] [address] 08/07/2024 2:30 PM EST Office Visit Hematology/Oncology [facility] 200 [place] [phone] Funmilayo Peter MD 200 [place] [address] 09/05/2024 4:00 PM EDT Office Visit Cardiology, [facility] 132 [facility] [address] Sridhar Fay MD 132 [place] [address] 09/26/2024 11:00 AM EDT Nurse Only Ancillary 65 [facility] 293 [place] [address] College, Nurse Annual Wellness Visit [address] [place] [address] Health Maintenance Due Date Last Done Comments COVID-19 Vaccine ( season) 2023 05/19/2022, 04/24/2021, 09/06/2020, Additional history exists Influenza Vaccine (FLU shot) (#1) 2024 03/11/2023, 02/23/2022, 02/19/2021, Additional history exists Albumin/Creatinine Ratio 04/26/2024 023, 07/13/2022, 07/08/2021 CKD PHOS USE SMARTSET 67958 07/27/202407/09, 02/25/2022, 01/29/2021 Depression Screening 09/20/2024 09/21/2023 CKD HGB USE SMARTSET 84605 11/28/202411/28, 11/29/2023, 07/27/2023, Additional history exists DTaP,Tdap,and [...] this encounter Medical Devices Implanted Type Area Casket Trimmer Device Identifier Shelf Expiration Date Model / Serial / Lot Bifurcated Endograft Implanted:Qty: 1 on 03/29/2017 by Lisa Emerson MD at OR [facility] N/A: Aorta ENDOLOGIX 01/13/2018 [id number]/11 6-40 / [id number] / Proximal Endograft Implanted:Qty: 1 on 03/29/2017 by Lisa Emerson MD at OR [facility] N/A: Aorta ENDOLOGIX 01/16/2020 A25-25/C75- O20V / [id number] / documented as of this encounter Advance Directives * Full Code (Latest Code Status on File) Date Activated Date Inactivated Comments 03/29/2017 2:46 PM 03/31/2017 3:33 PM This order reflects the patients wishes and were consensually agreed upon. Care Teams Weight Tester Relationship Specialty Start Date End Date Javon Scales DO 293 [place] [address] PCP - General Internal Medicine 11/19/23 documented as of this encounter
--- OUTSIDE RECORDS SUMMARY | 2024-05-15 19:05 | External Medical Summary | Summary of Care ---
Author Name Unknown Organization [facility] Address [address] [place] [address] Phone [phone] Care Team Providers Care Lab Nurse Name Role Phone Asad Scales DO Primary Care Provider [phone] Reason for Visit * Reason Comments eRx-Medication Refill Encounter Details Date Type Department Care Team (Late st Contact Info) Description 12/27/2023 Refill Family Practice [address], [place] [address] [place] [address] Asad Scales DO [address] [place] [address] Allergies Active Allergy Reactions Criticality Noted Date Comments Ciprofloxacin 09/27/2018 Stomach upset Finasteride Other (Please comment) 09/21/2023 Enlarged breast tissue Tamsulosin Hcl 01/14/2010 collapse Levofloxacin Other (Please comment) 03/05/2017 Hx of achilles tendon tear Atorvastatin Abdominal pain 12/23/2015 Lisinopril 03/11/2007 Caused pt to have blurred vision and become very flushed Simvastatin Abdominal pain 12/23/2015 documented as of this encounter (statuses as of 12/27/2023) Medications Medication Sig Dispensed Refills Start Date [...] 1 Capsule daily . Active Saline Nasal [place] 0.65 % Nasal Solution ([place])Indications: Epistaxis Administer into nostril 2 Sprays in the morning AND 2 Sprays before bedtime. 30 mL 12 07/29/2021 Active Nitroglycerin 0.4 MG Sublingual Tablet Sublingual (Nitrostat)Indicati ons:Atherosclerosis of [place] coronary artery of [place] heart [...] (Tenormin)Indicatio ns:HTN, goal below 140/90,Atherosclero sis of [place] coronary artery of [place] heart [...] HOUR BEFORE APPOINTMENT 4 Capsule 12/27/2023 Active documented as of this encounter (statuses as of 12/27/2023) Active Problems Problem Noted Date Diagnosed Date [...] CORONARY ATHEROSCLEROSIS OF UNSPECIFIED TYPE OF VESSEL, [place] OR GRAFT History of bladder cancer documented as of this encounter (statuses as of 12/27/2023) Resolved Problems Problem Noted Date Diagnosed Date [...] as of this encounter (statuses as of 12/27/2023) Immunizations Name Administration Dates Next Due COVID-19 mRNA, LNP-s, No Pre serve, 2-Dose Series ([employer]) 04/24/2021,09/06/2020,08/09/2020 Covid-19, Mrna, Lnp-s, Pf, B ivalent, 30 Mcg, IM, 12 yrs and above ([employer]) 05/19/2022 H1N1 2009 Influenza, IM 05/28/2009 Influenza, [...] Telephone Encounter - Asad Scales DO - 12/27/2023 7:14 PM EDTSigned Prescriptions: Disp Refills Amoxicillin 500 MG Oral Capsule (Amoxil) 4 Caps*0 Sig: TAKE FOURCAPSULES BY MOUTH ONE HOUR BEFORE APPOINTMENTAuthorizing Provider: ASAD SCALES * Telephone Encounter - Kelli Mota LPN - 12/27/2023 2:28 PM EDTPending Prescriptions: Disp Refills Amoxicillin 500 MG Oral Capsule 4 Caps*0 Sig: TAKE FOUR CAPSULES BY MOUTH ONE HOUR BEFORE APPOINTMENT * Telephone Encounter - Kelli Mota LPN - 12/27/2023 2:27 PM EDT Pre med prior to dental appt * Telephone Encounter - Mirela Gutierrez - 12/27/2023 1:29 PM EDTPending Prescriptions: Disp Refills Amoxicillin 500 MG Oral Capsule 4 Caps*0 Sig: TAKE FOUR CAPSULES BY MOUTH ONE HOUR BEFORE APPOINTMENT documented in this encounter Plan of Treatment Upcoming Encounters Date Type Department Care Team (Latest Contact Info) Description 01/05/2024 10:45 AM EDT Office Visit Hematology/Oncol ogy [facility] [address] [place] [address] Martir Lazar MD 200 [place] [address] 01/12/2024 3:40 PM EDT Office Visit [address] 293 [place] [address] Asad Scales, 293 [place] [address] 01/13/2024 10:00 AM EDT Hospital Encounter ENDO OSS, Endoscopy Room [facility] [address] [facility] [place] [phone] Kvng Dupont MD 132 [place] [address] 01/13/2024 10:00 AM EDT - 01/13/2024 10:30 AM EDT Surgery ENDO OSS, Endoscopy Room [facility] [place] [phone] Kvng Dupont MD [address] [place] [address] ESOPHAGOGASTRODUODENOSCOPY (EGD), FLEXIBLE, TRANSORAL, DIAGNOSTIC 01/24/2024 2:00 PM EDT Procedure Only Urology, [place] [address] [place] [address] Jose Lisa MD [address] [place] [address] 05/03/2024 1:45 PM EST Office Visit Urology, [place] [address] [place] [address] Baudilio Rosas MD [address] [place] [address] 09/06/2024 2:30 PM EDT Office Visit Cardiology, [facility] [address] [place] [address] Sridhar Fay MD [address] [place] [address] 09/26/2024 11:00 AM EDT Nurse Only Ancillary [address], [place] [address] [place] [address] College, Nurse Annual Wellness Visit [address] [facility] 293 [place] [address] Scheduled Procedures Name Priority Associated Diagnoses Date/Ti me ESOPHAGOGASTRODUODENOSCOPY ( EGD), FLEXIBLE, TRANSORAL, DIAGNOSTIC Dysphagia 01/13/2024 10:00 AM EDT Health Maintenance Due Date Last Done Comments COVID-19 Vaccine ( season) 2023 05/19/2022, 04/24/2021, 09/06/2020, Additional history exists Influenza Vaccine (FLU shot) (#1) 2024 03/11/2023, 02/23/2022, 02/19/2021, Additional history exists Albumin/Creatinine Ratio 04/26/2024 023, 07/13/2022, 07/08/2021 CKD PHOS USE SMARTSET 16899 07/27/202407/09, 02/25/2022, 01/29/2021 Depression Screening 09/20/2024 09/21/2023 CKD HGB USE SMARTSET 98723 11/28/202411/28, 11/29/2023, 07/27/2023, Additional history exists DTaP,Tdap,and [...] this encounter Medical Devices Implanted Type Area Grubber Device Identifier Shelf Expiration Date Model / Serial / Lot Bifurcated Endograft Implanted:Qty: 1 on 03/29/2017 by Lisa Emerson MD at [place] [facility] [place] N/A: Aorta ENDOLOGIX 01/13/2018 [id number] 6-40 / [id number] / Proximal Endograft Implanted:Qty: 1 on 03/29/2017 by Lisa Emerson MD at OR [facility] [place] N/A: Aorta ENDOLOGIX 01/16/2020 A25-25/C75- [id number] / [id number] / documented as of this encounter Advance Directives * Full Code (Latest Code Status on File) Date Activated Date Inactivated Comments 03/29/2017 2:46 PM 03/31/2017 3:33 PM This order reflects the patients wishes and were consensually agreed upon. Care Teams Lab Nurse Relationship Specialty Start Date End Date Asad Scales DO [address] [place] [address] PCP - General Internal Medicine 11/19/23 documented as of this encounter
--- OUTSIDE RECORDS SUMMARY | 2024-05-15 19:05 | External Medical Summary ---
Author Name Unknown Address Unknown Organization K01:[facility] - [address] [place] [address] Laboratory Report Ordering Provider Test Date Status АННА KAMARA 01/03/2024 15:30:23 Final Observation Date Value Abnormality Reference (Units ) Status Magnesium 01/03/2024 15:30:23 2.3 1.5-2.6 (m g/dL) Final Performing Location [facility] - [address] [place] [address]
--- OUTSIDE RECORDS SUMMARY | 2024-05-15 19:05 | External Medical Summary | Summary of Care ---
Author Name Unknown Organization [facility] Address [address] [place] [address] Phone [phone] Care Team Providers Care Firm Administrator Name Role Phone Mitchclara Javon Barksdale DO Primary Care Provider [phone] Encounter Details Date Type Department Care Team (Late st Contact Info) Description 01/03/2024 3:15 PM EDT Laboratory Lab [address] [facility] [address] [place] [address] [place], Lab [address] [place] [id number] Old myocardial infarct Allergies Active Allergy Reactions Criticality Noted Date Comments Ciprofloxacin 09/27/2018 Stomach upset Finasteride Other (Please comment) 09/21/2023 Enlarged breast tissue Tamsulosin Hcl 01/14/2010 collapse Levofloxacin Other (Please comment) 03/05/2017 Hx of achilles tendon tear Atorvastatin Abdominal pain 12/23/2015 Lisinopril 03/11/2007 Caused pt to have blurred vision and become very flushed Simvastatin Abdominal pain 12/23/2015 documented as of this encounter (statuses as of 01/03/2024) Medications Medication Sig Dispensed Refills Start Date [...] 1 Capsule daily . Active Saline Nasal [place] 0.65 % Nasal Solution ([place])Indications: Epistaxis Administer into nostril 2 Sprays in the morning AND 2 Sprays before bedtime. 30 mL 12 07/29/2021 Active Nitroglycerin 0.4 MG Sublingual Tablet Sublingual (Nitrostat)Indicati ons:Atherosclerosis of [place] coronary artery of [place] heart without angina pectoris one tab under [...] (Tenormin)Indicatio ns:HTN, goal below 140/90,Atherosclero sis of [place] coronary artery of [place] heart without angina pectoris Take 1 tablet [...] as of this encounter (statuses as of 01/03/2024) Active Problems Problem Noted Date Diagnosed Date [...] CORONARY ATHEROSCLEROSIS OF UNSPECIFIED TYPE OF VESSEL, [place] OR GRAFT History of bladder cancer documented as of this encounter (statuses as of 01/03/2024) Resolved Problems Problem Noted Date Diagnosed Date [...] stent and embolization 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/10 [facility] [place] 08/09:1 month s/p reintervention [...] as of this encounter (statuses as of 01/03/2024) Immunizations Name Administration Dates Next Due COVID-19 mRNA, LNP-s, No Pre serve, 2-Dose Series ([employer]) 04/24/2021,09/06/2020,08/09/2020 Covid-19, Mrna, Lnp-s, Pf, B ivalent, 30 Mcg, IM, 12 yrs and above ([employer]) 05/19/2022 H1N1 2009 Influenza, IM 05/28/2009 Influenza, [...] 01/05/2024 10:45 AM EDT Office Visit Hematology/Oncol [facility] [place] [address] [place] [address] Martir Lazar MD 200 [facility] [place] [address] 01/12/2024 3:40 PM EDT Office Visit Family Practice [address] [place] [address], [place] [address] [place] [address] Javon Scales, 293 [place] [address] 01/13/2024 10:00 AM EDT Hospital Encounter ENDO OSSC, Endoscopy Room [facility] [address] [place] [phone] Kvng Dupont MD [address] [place] [address] 01/13/2024 10:00 AM EDT - 01/13/2024 10:30 AM EDT Surgery ENDO OSSC, Endoscopy Room [facility] [address] [place], [place] [phone] Kvng Dupont MD [address] [place], [place] [address] ESOPHAGOGASTRODUODENOSCOPY (EGD), FLEXIBLE, TRANSORAL, DIAGNOSTIC 01/24/2024 2:00 PM EDT Procedure Only Urology, [place] [address] [place] [facility] [place] [address] Jose Lisa MD [address] [place] [address] 05/03/2024 1:45 PM EST Office Visit Urology, [place] [address] [facility] [place] [address] Baudilio Rosas MD [address] [facility] [place] [address] 09/06/2024 2:30 PM EDT Office Visit Cardiology, [facility] [address] [place] [address] Sridhar Fay MD [address] [place] [address] 09/26/2024 11:00 AM EDT [facility] [address] [place] [address] College, Nurse Annual Wellness Visit [address] [facility] [address] [place] [address] Pending Results Name Type Priority Associated Diagnoses Date /Time MAGNESIUM Lab Routine Old myocardial infarct 01/03/2024 3:30 PM EDT Scheduled Procedures Name Priority Associated Diagnoses Date/Ti me ESOPHAGOGASTRODUODENOSCOPY ( EGD), FLEXIBLE, TRANSORAL, DIAGNOSTIC Dysphagia 01/13/2024 10:00 AM EDT Health Maintenance Due Date Last Done Comments COVID-19 Vaccine ( season) 2023 05/19/2022, 04/24/2021, 09/06/2020, Additional history exists Influenza Vaccine (FLU shot) (#1) 2024 03/11/2023, 02/23/2022, 02/19/2021, Additional history exists Albumin/Creatinine Ratio 04/26/2024 023, 07/13/2022, 07/08/2021 CKD PHOS USE SMARTSET 47502 07/27/202407/09, 02/25/2022, 01/29/2021 Depression Screening 09/20/2024 09/21/2023 CKD HGB USE SMARTSET 61253 11/28/202411/28, 11/29/2023, 07/27/2023, Additional history exists DTaP,Tdap,and [...] this encounter Medical Devices Implanted Type Area Transport Manager Device Identifier Shelf Expiration Date Model / Serial / Lot Bifurcated Endograft Implanted:Qty: 1 on 03/29/2017 by Lisa Emerson MD at [place] [facility] N/A: Aorta ENDOLOGIX 01/13/2018 [id number] 6-40 / [id number] / Proximal Endograft Implanted:Qty: 1 on 03/29/2017 by Lisa Emerson MD at [place] [facility] N/A: Aorta ENDOLOGIX 01/16/2020 A25-25/C75- O20V / [id number] / documented as of this encounter Visit Diagnoses Diagnosis Old myocardial infarct Old myocardial infarction Dysphagia Dysphagia, unspecified documented in this encounter Advance Directives * Full Code (Latest Code Status on File) Date Activated Date Inactivated Comments 03/29/2017 2:46 PM 03/31/2017 3:33 PM This order reflects the patients wishes and were consensually agreed upon. Care Teams Firm Administrator Relationship Specialty Start Date End Date Javon Scales DO [address] [place] [address] PCP - General Internal Medicine 11/19/23 documented as of this encounter
--- OUTSIDE RECORDS SUMMARY | 2024-05-15 19:05 | External Medical Summary | Summary of Care ---
Author Name Unknown Organization [facility] Address [address] [place] [address] Phone [phone] Care Team Providers Care Retail Support Associate Name Role Phone Javon Scales DO Primary Care Provider [phone] Reason for Visit * Reason Onset Date Comments Information 12/31/2023 Encounter Details Date Type Department Care Team (Late st Contact Info) Description 12/31/2023 Telephone Family Practice [address] [facility] [place] [address] [place] [phone] Javon Scales DO [address] [place], [place] [phone] Information Allergies Active Allergy Reactions Criticality Noted Date Comments Ciprofloxacin 09/27/2018 Stomach upset Finasteride Other (Please comment) 09/21/2023 Enlarged breast tissue Tamsulosin Hcl 01/14/2010 collapse Levofloxacin Other (Please comment) 03/05/2017 Hx of achilles tendon tear Atorvastatin Abdominal pain 12/23/2015 Lisinopril 03/11/2007 Caused pt to have blurred vision and become very flushed Simvastatin Abdominal pain 12/23/2015 documented as of this encounter (statuses as of 12/31/2023) Medications Medication Sig Dispensed Refills Start Date [...] 1 Capsule daily . Active Saline Nasal [place] 0.65 % Nasal Solution ([place])Indications: Epistaxis Administer into nostril 2 Sprays in the morning AND 2 Sprays before bedtime. 30 mL 12 07/29/2021 Active Nitroglycerin 0.4 MG Sublingual Tablet Sublingual (Nitrostat)Indicati ons:Atherosclerosis of [place] coronary artery of [place] heart without angina pectoris one tab [...] (Tenormin)Indicatio ns:HTN, goal below 140/90,Atherosclero sis of [place] coronary artery of [place] heart without angina pectoris Take 1 [...] as of this encounter (statuses as of 12/31/2023) Active Problems Problem Noted Date Diagnosed Date [...] CORONARY ATHEROSCLEROSIS OF UNSPECIFIED TYPE OF VESSEL, [place] OR GRAFT History of bladder cancer documented as of this encounter (statuses as of 12/31/2023) Resolved Problems Problem Noted Date Diagnosed Date [...] stent and embolization 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/10 [facility] 08/09:1 month s/p reintervention [...] as of this encounter (statuses as of 12/31/2023) Immunizations Name Administration Dates Next Due COVID-19 mRNA, LNP-s, No Pre serve, 2-Dose Series ([employer]) 04/24/2021,09/06/2020,08/09/2020 Covid-19, Mrna, Lnp-s, Pf, B ivalent, 30 Mcg, IM, 12 yrs and above ([employer]) 05/19/2022 H1N1 2009 Influenza, IM 05/28/2009 Influenza, [...] Miscellaneous Notes * Telephone Encounter - Kelli Mota, [place] - 12/31/2023 4:56 PM EDT Patient request mag level to be drawn documented in this encounter Plan of Treatment Upcoming Encounters Date Type Department Care Team (Latest Contact Info) Description 01/05/2024 10:45 AM EDT Office Visit Hematology/Oncol ogy [facility] [address] [place], [place] [address] Martir Lazar MD 200 [facility] [place] [address] 01/12/2024 3:40 PM EDT Office Visit Family Practice [address] [place] [address] 293 [place] [address] Javon Scales DO 293 [place] [address] 01/13/2024 10:00 AM EDT Hospital Encounter ENDO OSSC, Endoscopy Room [facility] [address] [place] [phone] Kvng Dupont MD [address] [place] [address] 01/13/2024 10:00 AM EDT - 01/13/2024 10:30 AM EDT Surgery ENDO OSSC, Endoscopy Room [facility] [address] [facility] [place] [phone] Kvng Dupont MD [address] [place] [address] ESOPHAGOGASTRODUODENOSCOPY (EGD), FLEXIBLE, TRANSORAL, DIAGNOSTIC 01/24/2024 2:00 PM EDT Procedure Only Urology, [place] [address] [place] [address] Jose Lisa MD [address] [place] [address] 05/03/2024 1:45 PM EST Office Visit Urology, [place] [address] [place] [address] Baudilio Rosas MD [address] [place] [address] 09/06/2024 2:30 PM EDT Office Visit Cardiology, [facility] [address] [facility] [place] [address] Sridhar Fay MD [address] [facility] [place] [address] 09/26/2024 11:00 AM EDT Nurse Only Ancillary 65 [facility] 293 [place] [address] College, Nurse Annual Wellness Visit [address] [place] [address] Scheduled Orders Name Type Priority Associated Diagnoses Orde r Schedule MAGNESIUM Lab Routine Old myocardial infarct Expected: 12/31/2023 (Approximate), Expires: 12/30/2024 Scheduled Procedures Name Priority Associated Diagnoses Date/Ti me ESOPHAGOGASTRODUODENOSCOPY ( EGD), FLEXIBLE, TRANSORAL, DIAGNOSTIC Dysphagia 01/13/2024 10:00 AM EDT Health Maintenance Due Date Last Done Comments COVID-19 Vaccine ( season) 2023 05/19/2022, 04/24/2021, 09/06/2020, Additional history exists Influenza Vaccine (FLU shot) (#1) 2024 03/11/2023, 02/23/2022, 02/19/2021, Additional history exists Albumin/Creatinine Ratio 04/26/2024 023, 07/13/2022, 07/08/2021 CKD PHOS USE SMARTSET 46939 07/27/202407/09, 02/25/2022, 01/29/2021 Depression Screening 09/20/2024 09/21/2023 CKD HGB USE SMARTSET 49489 11/28/202411/28, 11/29/2023, 07/27/2023, Additional history exists DTaP,Tdap,and [...] this encounter Medical Devices Implanted Type Area Permanent Waver Device Identifier Shelf Expiration Date Model / Serial / Lot Bifurcated Endograft Implanted:Qty: 1 on 03/29/2017 by Lisa Emerson MD at [place] [facility] N/A: Aorta ENDOLOGIX 01/13/2018 [id number]/11 6-40 / [id number] / Proximal Endograft Implanted:Qty: 1 on 03/29/2017 by Lisa Emerson MD at [place] [facility] N/A: Aorta ENDOLOGIX 01/16/2020 A25-25/C75- [id number] / [id number] / documented as of this encounter Visit Diagnoses Diagnosis Old myocardial infarct- Primary Old myocardial infarction Dysphagia Dysphagia, unspecified documented in this encounter Advance Directives * Full Code (Latest Code Status on File) Date Activated Date Inactivated Comments 03/29/2017 2:46 PM 03/31/2017 3:33 PM This order reflects the patients wishes and were consensually agreed upon. Care Teams Retail Support Associate Relationship Specialty Start Date End Date Javon Scales DO [address] [place] [address] PCP - General Internal Medicine 11/19/23 documented as of this encounter
--- OUTSIDE RECORDS SUMMARY | 2024-05-15 19:05 | External Medical Summary | Summary of Care ---
Author Name Unknown Organization [facility] Address [address] [place] [facility] [place] [address] Phone [phone] Care Team Providers Care Senior Engineering Tech Name Role Phone Javon Scales Apolonia ARMENTA Primary Care Provider [phone] Reason for Referral * Precert (Within 10 days (routine)) - Pending Review Specialty Diagnoses / Procedures Referred By Roberto gómez Referred To Contact Radiology Diagnoses History of lung cancer Lung nodules History of bladder cancer Procedures CT CHEST WO CONTRAST Martir Lazar MD [address], [place] [address] Referral ID Status Reason Start Date Expiration Date V isits Requested Visits Authorized [id number] Pending Review 01/05/2024 999 999 Reason for Visit * Reason Comments Follow Up 6 month follow up Encounter Details Date Type Department Care Team (Late st Contact Info) Description 01/05/2024 10:45 AM EDT Office Visit Hematology/Oncology Rajinder Owens [address] [place] [phone] Martir Lazar MD [address] [place] [address] History of lung cancer*; Lung nodules; History of bladder cancer Allergies Active Allergy Reactions Criticality Noted Date Comments Ciprofloxacin 09/27/2018 Stomach upset Finasteride Other (Please comment) 09/21/2023 Enlarged breast tissue Tamsulosin Hcl 01/14/2010 collapse Levofloxacin Other (Please comment) 03/05/2017 Hx of achilles tendon tear Atorvastatin Abdominal pain 12/23/2015 Lisinopril 03/11/2007 Caused pt to have blurred vision and become very flushed Simvastatin Abdominal pain 12/23/2015 documented as of this encounter (statuses as of 01/05/2024) Medications Medication Sig Dispensed Refills Start Date [...] 1 Capsule daily . Active Saline Nasal Yoder 0.65 % Nasal Solution (Leeper)Indications: Epistaxis Administer into nostril 2 Sprays in the morning AND 2 Sprays before bedtime. 30 mL 12 07/29/2021 Active Nitroglycerin 0.4 MG Sublingual Tablet Sublingual (Nitrostat)Indicati ons:Atherosclerosis of [place] coronary artery of [place] heart without angina pectoris one tab under [...] (Tenormin)Indicatio ns:HTN, goal below 140/90,Atherosclero sis of [place] coronary artery of [place] heart without angina pectoris Take 1 tablet [...] as of this encounter (statuses as of 01/05/2024) Active Problems Problem Noted Date Diagnosed Date [...] as of this encounter (statuses as of 01/05/2024) Resolved Problems Problem Noted Date Diagnosed Date [...] stent and embolization 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/10 [facility] 08/09:1 month s/p reintervention for his [...] as of this encounter (statuses as of 01/05/2024) Immunizations Name Administration Dates Next Due COVID-19 mRNA, LNP-s, No Pre serve, 2-Dose Series (Cloud Sherpas) 04/24/2021,09/06/2020,08/09/2020 Covid-19, Mrna, Lnp-s, Pf, B ivalent, 30 Mcg, IM, 12 yrs and above (Cloud Sherpas) 05/19/2022 H1N1 2009 Influenza, IM 05/28/2009 Influenza, [...] Past Smokeless Tobacco: Never Tobacco Cessation:Counseling Given: Not Answered Comments:quit smoking about 1997 Alcohol Use Standard [...] Sign Reading Time Taken Comments Blood Pressure 155/78 01/05/2024 10:35 AM EDT Pulse 63 01/05/2024 10:35 AM EDT Temperature 36.6 C (97.8 F) 01/05/2024 10:35 AM E DT Respiratory Rate - - Oxygen Saturation 96% 01/05/2024 10:35 AM EDT Inhaled Oxygen Concentration - - Weight 62.4 kg (137 lb 9.6 oz) 01/05/2024 10:35 AM EDT Height - - Body Mass Index 23.8 11/29/2023 12:56 PM EDT documented in this encounter Functional [...] as of this encounter Progress Notes * Martir Lazar MD - 01/05/2024 10:45 AM EDT NAME: Cedric Sam . 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 - Mild thrombocytopenia for the last several years, platelet count was around 120,000-130,000 earlier in 2005, now it is around 60-100 K. History of low-grade urothelial carcinoma (diagnosed in October 2018). S/P TURBT in October 2018. -repeat TURBT in December 2018. No residual dysplastic or carcinoma noted. He follows with urologist at [facility]. He completed 6 treatment with intravesical BCG, last treatment was on 11/17/2019. CURRENT TREATMENT: None. PREVIOUS TREATMENT: -S/P stereotactic radiation to the right upper lobe lung lesion in April,. DIAGNOSTIC WORKUP: He says that earlier he had an accidental fall, he was seen at [facility] ER in January of 2009, at that time showed small right upper lobe lung nodule, PET-CT scan done on 02/13/2009 showed right upper lobe lung nodule which SUV of 1.5, increase uptake noted in the right lower the thyroid SUV of 5. No other suspicious findings noted anywhere else. - FNA from the right lobe of the thyroid gland done on 03/28/2009 --> Negative for malignancy. He was also seen by Dr. 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 - CT scan of the test done on 02/18/2011 --> Enlarging right upper lobe groundglass opacity with speculative soft tissue density measuring 2.7 x 2.5 cm x 2.2 cm (earlier in August it was 2.5 x 2.3 x1.8 cm) but it has nearly doubled since 2008. No mediastinal hilar lymphadenopathy noted. - FNA of the right upper lobe lung mass done on 03/06/2011 --> Well- differentiated adenocarcinomawith bronchoalveolar features, positive for CK 7, TTF 1, Napsin-A , MOC-31. - MRI of the brain done on 03/20/2011 --> Negative for metastatic disease. - TNM staging --> T1b N0 MX, stage I A - Earlier we tried for EGFR mutation testing but there were not enough cells for the testing. - He completed stereotactic radiation treatment to the enlarging right upper lobe nodule (5000 cGy in 4 fractions, completed on 04/28/2011) - Follow-up CT scan of the chest done on 07/06/2011 showed post-radiation changes, slight decreased in the size of right upper lobe mass. No other new findings noted in the chest. --------- INTERVAL HISTORY: He has come to the clinic for the follow-up, accompanied by his in the office. Overall his health has remained stable, no new cardiac or pulmonary symptom ,not on oxygen treatment, no new infectious complications Yesterday while driving the car, while turning the head, he started having significant neck pain and stiffness since then. History of urothelial carcinoma noted, S/P TURBT on few occasions, had hematuria earlier when he was diagnosed in October 2018, completed 6 treatment with intravesical BCG, no hematuria at this time. He is having cystoscopic evaluation soon He does complain of chronic back pain, weight loss by about 7 lb, good appetite, current weight around 137 lb. Denies any abdominal discomfort. No new bleeding complications other than some bruises . Past Medical History: Diagnosis Date Aneurysm (HCC) [...] performed by Alen Aguilar MD at OR [facility] CYSTOSCOPY 03-05-2010 CYSTOSCOPY/INSERTION OF STENT Right 12/19/2018 CYSTOURETHROSCOPY WITH INSERTION URETERAL STENT performed by Alen Aguilar MD at [facility] CYSTOSCOPY/TREAT LGE BLADDER TUMOR N/A 10/07/2018 CYSTOURETHROSCOPY WITH FULGURATION LARGE BLADDER TUMOR performed by Alen Aguilar MD at OR [facility] CYSTOSCOPY/TREAT LGE BLADDER TUMOR N/A 05/22/2021 CYSTOURETHROSCOPY WITH FULGURATION LARGE BLADDER TUMOR performed by Alysa Valente MD at OR [facility] CYSTOURETERO W/BIOPSY Right 12/19/2018 CYSTOURETHROSCOPY URETEROSCOPY WITH BIOPSY AND OR FULGURATION LESION performed by Alen Aguilar MD at OR [facility] CYSTOURETERO W/BIOPSY N/A 02/28/2019 CYSTOURETHROSCOPY URETEROSCOPY WITH BIOPSY AND OR FULGURATION LESION performed by Alen Aguilar MD at OR [facility] CYSTOURETERO W/BIOPSY Bilateral 09/21/2019 CYSTOURETHROSCOPY URETEROSCOPY WITH BIOPSY AND OR FULGURATION LESION performed by Alysa Valente MD at OR [facility] CYSTOURETHROSCOPY W/BIOPSY N/A 05/22/2021 CYSTOURETHROSCOPY WITH BIOPSY performed by Alysa Valente MD at OR [facility] ENDOVASC ABDO REPR W/BI DEVICE N/A 03/29/2017 ENDOVASCULAR REPAIR ABDOMINAL AORTIC ANEURYSM BIF PROS 1 LIMB performed by Lisa Emerson MD at OR [facility] FLUORO PYELOGRAM RETROGRADE Left 02/28/2019 UROGRAHY, RETROGRADE, WITH OR WITHOUT KUB performed by Alen Aguilar MD at OR [facility] FLUORO PYELOGRAM RETROGRADE Bilateral 09/21/2019 UROGRAHY, RETROGRADE, WITH OR WITHOUT KUB performed by Alysa Valente MD at OR [facility] INFORMATION open heart surgery [facility] INFORMATION 07/1999 bladder [facility] danella INFORMATION 03/29/2017 model# FAA48-34/[id number] AFX Endovascular AAA Stent Graft Extension INFORMATION 03/29/2017 model# A25-25/[id number] AFX Endovascular AAA Stent Limb Extension INJECT DX/THER SUBSTANCE INTERLAMINAR LUMBAR/SACRAL W IMAGE GUIDE 05/25/2019 INJECTION SPINE LUMBAR OR SACRAL performed by Michel Gil DO at OR [facility] INJECT DX/THER SUBSTANCE INTERLAMINAR LUMBAR/SACRAL W IMAGE GUIDE 06/22/2019 INJECTION SPINE LUMBAR OR SACRAL performed by Michel Gil DO at OR [facility] INJECT DX/THER SUBSTANCE INTERLAMINAR LUMBAR/SACRAL W IMAGE GUIDE 02/01/2020 INJECTION SPINE LUMBAR OR SACRAL performed by Michel Gil DO at OR [facility] IOF CT GUIDED NEEDLE BIOPSY 03/06/2011 CT GUIDED NEEDLE ASPIRATION BIOPSY performed by DUDLEY WARNER at RADIOLOGY [facility] IR ENDOVASCULAR REPAIR ILIAC 04/17/04 right common iliac aneurysm stent graft repair, right hypogastric embolization, Dr. 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 Noel REMOVAL OF TONSILS, UNDER AGE 12 Tonsils Removal,<12 Y/O Current Outpatient Medications Medication Sig Dispense Refill [...] C) CHEW 1 Tablet in the morning. (Patient not taking: Reported on 11/29/2023) senna-docusate (SENOKOT S) 8.6-50 MG per tablet Take 1 Tab by mouth 2 times a day as needed for Constipation. 1 Tab clotrimazole-betamethasone (LOTRISONE) 1-0.05 % cream APPLY TOPICALLY TO RIGHT LEG AREA TWICE [id number] g 5 Triamcinolone Acetonide 0.1 % External Lotion (Aristocort) Apply to affected area at groin twice daily as needed 60 mL 2 PreserVision AREDS 2+Multi Vit Oral Capsule Take by mouth 1 Capsule daily . Saline Nasal Yoder 0.65 % Nasal Solution (Leeper) Administer into nostril 2 Sprays in the [...] NIGHTLY ASNEEDED FOR ITCHING 60 mL 0 amLODIPine Besylate 2.5 MG Oral Tablet [...] mouth in the morning. 90 Capsule 3 oxyCODONE HCl 5 MG Oral Tablet (Oxy IR) Take 1 Tablet by mouth every 8 hours as needed for Pain, Severe. 90 Tablet 0 Amoxicillin 500 MG Oral Capsule (Amoxil) TAKE FOUR CAPSULES BY MOUTH ONE HOUR BEFORE APPOINTMENT 4 Capsule 0 No current facility-administered medications for this visit. On exam: BP 155/78 (BP Site: Left Arm, BP Position: Sitting, BP Cuff Size: Regular) | Pulse 63 | Temp 36.6 C (97.8 F) (Tympanic) | Wt 62.4 kg (137 lb 9.6 oz) | SpO2 96% | BMI 23.80 kg/m | BSA 1.68 m - Alert and oriented x3, well built man, not in any distress. - HEENT: no icterus, no pallor, Throat: Normal. - Neck: No palpable cervical lymphadenopathy. - Chest: Emphysematous chest noted. - Abdomen: soft, nontender, no hepatomegaly, no splenomegaly. - No focal neuro deficit. - Extremities: no finger clubbing, mild ankle edema. IMAGING: - CT scan of the chest done without intravenous contrast in 04/2012 showed stable post-radiation changes noted in the right upper lobe, stable bilateral ground last opacities and less than 4 mm lung nodules, no new lung nodules noted. Multiple hepatic cyst and giant hemangioma noted in the liver. - Plain x-ray of the right ribs --> Normal findings (06/06/2012) -CT scan of the chest, abdomen and pelvis done in October of 2012 showed post radiation changes involving the right upper lobe, no other new suspicious findings noted anywhere else, fracture involving the 2nd and 3rd right ribs noted. -CT scan of the chest done in in April of 2013 showed post radiation changes, no recurrent disease noted. -CT scan of the chest done in in April of 2014 showed post-radiation changes, no recurrent disease noted. -CT scan of chest done in April, showed stable postradiation/scarring changes involving theright upper lobe, stable left upper lobe changes. -CT scan of the chest done without intravenous contrast on 05/13/2016 showed stable post radiation changes involving the right upper lobe, stable left upper lobe ground-glass changes measuring up to 1cm noted. Further enlargement of the previously noted right midpole kidney lesion measuring 2.1 cm which could be cyst. Multiple hepatic cyst noted. -CT scan of the abdomen done on 02/11/2017 showed enlarging right common iliac artery aneurysm slightinterval enlargement of the abdominal aorta measuring 3.[address] scan of the abdomen and pelvis (04/03/2019). 1. Right-sided double-J ureteral stent in place with no definite evidence of external compression against the right ureter. 2. Mild mural thickening visualized in the right posterolateral urinary bladder in the region of the right ureterovesicular junction. The differential includes focal inflammatory and/or neoplastic etiologies. 3. Exophytic 2.8 cm hypodense lesion in the lower pole of the right kidney which demonstrates internal density not consistent with simple cystic density which may represent a complex cyst versus solid lesion. This lesion appears minimally larger than that seen previously. Further evaluation with ultrasound may be considered. 4. Numerous cysts and hemangiomas in the liver as seen previously. ------- CT chest (11/13/2019) Stable right upper lobe postradiation fibrosis. Stable bilateral ground-glass and solid scattered small pulmonary nodules, largest in the left lung apex, consistent with benign etiology. No tumor recurrence or metastatic disease is appreciated. Numerous stable masses in the liver consistent with previously demonstrated giant hemangiomas. Stable water density hepatic cysts. --- CT chest (11/11/2020). 1. Stable right upper lobe post radiation fibrosis. 2. Bilateral ground-glass and scattered small pulmonary nodules. Largest in the left lung apex. This ground-glass opacity is slightly increased in size when compared to the 2017 study. 3. Numerous stable masses in the liver consistent with previously demonstrated giant hemangiomas and hepatic cysts. Left lobe hepatic hemangioma appears increased in size. 4. Stable renal cysts. CT scan of chest without intravenous contrast (11/10/2021). 1. Stable appearance of right upper lobe subpleural mass and adjacent rib. 2. Stable spiculated appearance of left upper lobe nodule. 3. Better identified on today's examination, is a 3 mm right upper lobe nodule, appears stable when compared to prior PET-CT. 4. Partially visualized hypodensities within the liver appear grossly stable. CT chest without contrast (05/22/2022). 1. Stable post radiation changes in the lateral right upper lobe since 2012. 2. Left apical subsolid nodules which have slowly grown and increased in density since 2008. CT chest ( 11/18/2022: -Overall similar appearance of scattered parenchymal nodules, again raising suspicion for low-grade neoplasia. Otherwise stable appearance of subpleural right upper lobe lesion with adjacent osseous destruction. Multiple hepatic lesions including large exophytic lesion involving the left hepatic lobe, similar to prior exams. LABORATORY DATA: I reviewed his blood workup, stable mild thrombocytopenia noted. Urine cytology (02/28/2019) --> negative for high-grade urothelial carcinoma. Urine cytology (October 2020) --> atypical epithelial cells Blood workup done on 10/04/2020: Platelet count 58019, H&H of 13.6/39.7, WBC 5600. I reviewed following blood workup done on 11/05/2021 with him. -BUN/Creat: 20/1.0, total bilirubin 2.1 (not a new finding) Normal Calcium level, normal other liver function test -WBC 5004, H&H of 14/41.7, Platelet 56,000. I reviewed his blood workup done on 05/14/2022 -he has chronic thrombocytopenia, Platelet count around 63,000. Hemoglobin level 13.2. Normal WBC count -BUN/Creat: 22/0.9, Calcium 8.9. Blood workup done on 10/12/2022: - WBC 6500, H&H of 13/39.9, Platelet count 25700. - BUN/Cre : 25/1.0, Calcium 9.0, normal LFT. Blood workup done on 04/26/2023: -WBC 7100, H&H of 12.8/40[place]8, [place] [address] , MPV 14.5 -BUN/Creat: 25/0.9, bilirubin level 1.4, normal LFT. Blood workup done on 11/29/2023: -WBC 6800, Hemoglobin and hematocrit -12.9/38.5, Platelet count of 53,000 -Serum iron: 65, TIBC 242, iron saturation 27% -Ferritin level --> 70 -Vitamin B12--> 1522 -folic acid --> 9.5 -Absolute reticulocyte count --> 163,000. -LDH --> 148- CT chest without contrast (05/28/2023) --> No evidence of progressive disease noted. ASSESSMENT AND PLAN: 86 year-old male, a case of right upper lobe 2.5 cm adenocarcinoma with bronchoalveolar features (2010), no evidence of distant metastatic disease noted, he was asymptomatic, he discontinued smoking habit about 14 year back. T1b N0 M0, stage Ia. He completed stereotactic radiation to the right upper lobe mass on 04/28/2011. He is done quite well since then, no new pulmonary symptoms. Last imaging study in the form of CT scan of the chest done in November 2019 showed stable findings.. He has bilateral lower extremity sciatica pain and lower back pain related to underlying DJD, follows with his primary-care provider, takes Percocet for the symptomatic treatment. Because of low Platelet, he is not having any interventional procedure for the back pain. Last CT scan of the chest was done in May 2020 Overall no new pulmonary symptoms I am planning for another follow-up CT scan of chest without intravenous contrast in next few weeks. History of urothelial carcinoma local disease, follows up with urologist, S/P TURBT in the past, completed 6 treatment with BCG recently in midNovember 2019 , no hematuria since then he follows up with urologist. Also reviewed his blood work, mild thrombocytopenia noted which is not a new finding. He has chronic back pain related underlying DJD. He takes oxycodone for the symptomatic treatment. 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 In the future if we have to treat, we could consider for steroid therapy. Will continue to observe. I am planning for follow-up blood workup in about 7 [address]Will order another CT scan before the next visit in [address] Martir Lazar Hem/Onc (This note was completed using the dictation program Fluency Direct. As such, there may be misspellings word substitutions, or other variations that should not change the essence of the clinical content of this encounter note. If there is need for further clarification, please direct questions to the provider listed above.) documented in this encounter Nursing Notes * Ragini Pratt, MED ASSIST - 01/05/2024 10:36 AM EDT Patient identifed by name and birthdate Do you have any concerns about pain management for today's visit? Yes. Patient instructed to discuss pain concerns with provider during the visit today Living Will or Advance Directive for Health Care as noted on the problem list. [facility] is a way you can talk to your provider on line through e-mail. Would you like to sign up? I can activate it for you? ALREADY ACTIVE Filed Vitals: 01/05/24 1035 BP: 155/78 Pulse: 63 Temp: 36.6 C (97.8 F) TempSrc: Tympanic SpO2: 96% Weight: 62.4 kg (137 lb 9.6 oz) Patient was instructed to not get up on the exam table/exam chair until directed and assisted by their provider; patient is to remain seated in the chair/ wheelchair/ exam table/ exam chair for fall prevention and safety reasons. Patient is aware to have assistance to step down off exam table/exam chair with personnel. Patient voiced full comprehension of instructions. Patient states that his upper neck pain started yesterday while he was turning his head looking to see if on coming traffic was coming. Patient states that the pain has now traveled to left side of neck pain. documented in this encounter Plan of Treatment Upcoming Encounters Date Type Department Care Team (Latest Contact Info) Description 01/12/2024 3:40 PM EDT Office Visit Family [facility] [address] [place] [address] Javon Scales, [address] [place] [address] 01/13/2024 10:00 AM EDT Hospital Encounter ENDO [facility], Endoscopy Room [facility] [address] [phone] Kvng Dupont MD [address] [place] [address] 01/13/2024 10:00 AM EDT - 01/13/2024 10:30 AM EDT Surgery ENDO [facility], Endoscopy Room [facility] [address] [place] [phone] Kvng Dupont MD [address] [place] [address] ESOPHAGOGASTRODUODENOSCOPY (EGD), FLEXIBLE, TRANSORAL, DIAGNOSTIC 01/14/2024 12:30 PM EDT Imaging Radiology [address] [place] [address] 01/24/2024 2:00 PM EDT Procedure Only Urology, [place] [address] [place] [address] Jose Lisa MD [address] [place] [address] 05/03/2024 1:45 PM EST Office Visit Urology, [place] [address] [place] [address] Baudilio Rosas MD [address] [place] [address] 08/07/2024 2:30 PM EST Office Visit Hematology/Oncol [facility] [address] [place] [phone] Funmilayo Peter MD [address] [place] [address] 09/05/2024 4:00 PM EDT Office Visit Cardiology, [facility] [address] [facility] [place] [address] Sridhar Fay MD [address] [place] [address] 09/26/2024 11:00 AM EDT Nurse Only Ancillary [address] [facility] [address] [place] [address] College, Nurse Annual Wellness Visit [address] [address] Scheduled Orders Name Type Priority Associated Diagnoses Orde r Schedule CT CHEST WO CONTRAST Medical Imaging Routine History of lung cancer Lung nodules History of bladder cancer Expected: 01/05/2024, Expires: 01/04/2025 Scheduled Procedures Name Priority Associated Diagnoses Date/Ti me ESOPHAGOGASTRODUODENOSCOPY ( EGD), FLEXIBLE, TRANSORAL, DIAGNOSTIC Dysphagia 01/13/2024 10:00 AM EDT Health Maintenance Due Date Last Done Comments COVID-19 Vaccine ( season) 2023 05/19/2022, 04/24/2021, 09/06/2020, Additional history exists Influenza Vaccine (FLU shot) (#1) 2024 03/11/2023, 02/23/2022, 02/19/2021, Additional history exists Albumin/Creatinine Ratio 04/26/2024 023, 07/13/2022, 07/08/2021 CKD PHOS USE SMARTSET 05313 07/27/202407/09, 02/25/2022, 01/29/2021 Depression Screening 09/20/2024 09/21/2023 CKD HGB USE SMARTSET 31411 11/28/202411/28, 11/29/2023, 07/27/2023, Additional history exists DTaP,Tdap,and [...] this encounter Medical Devices Implanted Type Area Career Placement Services Counselor Device Identifier Shelf Expiration Date Model / Serial / Lot Bifurcated Endograft Implanted:Qty: 1 on 03/29/2017 by Lisa Emerson MD at OR [facility] N/A: Aorta ENDOLOGIX 01/13/2018 [id number] / [id number] / Proximal Endograft Implanted:Qty: 1 on 03/29/2017 by Lisa Emerson MD at OR [facility] N/A: Aorta ENDOLOGIX 01/16/2020 [id number] / [id number] / documented as of this encounter Visit Diagnoses Diagnosis History of lung cancer- Primary Personal history of malignant neoplasm of bronchus and lung Lung nodules Other nonspecific abnormal finding of lung field History of bladder cancer Personal history of malignant neoplasm of bladder Dysphagia Dysphagia, unspecified documented in this encounter Advance Directives * Full Code (Latest Code Status on File) Date Activated Date Inactivated Comments 03/29/2017 2:46 PM 03/31/2017 3:33 PM This order reflects the patients wishes and were consensually agreed upon. Care Teams Senior Engineering Tech Relationship Specialty Start Date End Date Javon Scales DO [address] [place] [address] PCP - General Internal Medicine 11/19/23 documented as of this encounter"
--- OUTSIDE RECORDS SUMMARY | 2024-05-15 19:05 | External Medical Summary | Summary of Care ---
Author Name Unknown Organization [facility] Address [address] [place] [address] Phone [phone] Care Team Providers Care Type Inspector Name Role Phone Javon Scales DO Primary Care Provider [phone] Reason for Visit * Reason Comments Follow Up Encounter Details Date Type Department Care Team (Late st Contact Info) Description 01/06/2024 1:40 PM EDT Office Visit Family Practice [address] [place] [address] [place] [phone] Kerry Jean [address] [place] [address] Neck pain* Allergies Active Allergy Reactions Criticality Noted Date [...] 1 Capsule daily . Active Saline Nasal [place] 0.65 % Nasal Solution ([place])Indications :Epistaxis Administer into nostril 2 Sprays in the morning AND 2 Sprays before bedtime. 30 mL 12 07/29/2021 Active Nitroglycerin 0.4 MG Sublingual Tablet Sublingual (Nitrostat)Indicat ions:Atheroscleros is of [place] coronary artery of [place] heart without angina pectoris one tab under [...] (Tenormin)Indicati ons:HTN, goal below 140/90,Atheroscler osis of [place] coronary artery of [place] heart without angina pectoris Take 1 tablet [...] CORONARY ATHEROSCLEROSIS OF UNSPECIFIED TYPE OF VESSEL, CABAZON OR GRAFT History of bladder cancer documented [...] mRNA, LNP-s, No Pre serve, 2-Dose Series (Job1001) 04/24/2021,09/06/2020,08/09/2020 Covid-19, Mrna, Lnp-s, Pf, B ivalent, 30 Mcg, IM, 12 yrs and above (Job1001) 05/19/2022 H1N1 2009 Influenza, IM 05/28/2009 Influenza, [...] Sign Reading Time Taken Comments Blood Pressure 132/70 01/06/2024 1:39 PM EDT Pulse 64 01/06/2024 1:39 PM EDT Temperature 37.1 C (98.8 F) 01/06/2024 1:39 PM ED T Respiratory Rate 14 01/06/2024 1:39 PM EDT Oxygen Saturation 98% 01/06/2024 1:39 PM EDT Inhaled Oxygen Concentration - - Weight 62.4 kg (137 lb 8 oz) 01/06/2024 1:39 PM EDT Height 161.9 cm (5' 3.75") 01/06/2024 1:39 PM ED T Body Mass Index 23.79 01/06/2024 1:39 PM EDT documented in this encounter Functional [...] as of this encounter Progress Notes * Kerry Jean, - 01/06/2024 1:44 PM EDT SUBJECTIVE: Chief Complaint Patient presents with Follow Up HPI: Cedric Sam Jr. is a 88 year old male who presents today with complaints of neck pain. Pt notes that he was driving and had to turn his neck really far to look at an intersection and pulled a muscle in his right neck. He notes that he is having trouble turning his head. He has pain in both sides now. He was told to put heat on his neck by Dr. Lazar yesterday. He is getting some pain into the base of his skull. He is using his oxycodone. He did this yesterday or the day before. 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 1 Tab clotrimazole-betamethasone (LOTRISONE) 1-0.05 % cream APPLY TOPICALLY TO RIGHT LEG AREA TWICE [id number] g 5 Triamcinolone Acetonide 0.1 % External Lotion (Aristocort) Apply to affected area at groin twice daily as needed 60 mL 2 PreserVision AREDS 2+Multi Vit Oral Capsule Take by mouth 1 Capsule daily . Saline Nasal [place] 0.65 % Nasal Solution ([place]) Administer into nostril 2 Sprays in the [...] ONE HOUR BEFORE APPOINTMENT 4 Capsule 0 Multiple Vitamins-Minerals (MULTIVITAMIN ADULT EXTRA C) CHEW 1 Tablet in the morning. (Patient not taking: Reported on 11/29/2023) No current facility-administered medications for this visit. [...] years COLONOSCOPY, DIAGNOSTIC (RECTUM) 10/23/2015 benign polyps, diverticulosis/[facility] CYSTO/URETERO W/LITHOTRIPSY Right 02/28/2019 CYSTOURETHROSCOPY URETEROSCOPY WITH LITHOTRIPSY AND STENT INSERTION performed by Alen Aguilar MD at [place] [facility] CYSTOSCOPY 03-05-2010 CYSTOSCOPY/INSERTION OF STENT Right 12/19/2018 CYSTOURETHROSCOPY WITH INSERTION URETERAL STENT performed by Alen Aguilar MD at OR [facility] CYSTOSCOPY/TREAT LGE BLADDER TUMOR N/A 10/07/2018 CYSTOURETHROSCOPY WITH FULGURATION LARGE BLADDER TUMOR performed by Alen Aguilar MD at OR [facility] CYSTOSCOPY/TREAT LGE BLADDER TUMOR N/A 05/22/2021 CYSTOURETHROSCOPY WITH FULGURATION LARGE BLADDER TUMOR performed by Alysa Valente MD at OR [facility] CYSTOURETERO W/BIOPSY Right 12/19/2018 CYSTOURETHROSCOPY URETEROSCOPY WITH BIOPSY AND OR FULGURATION LESION performed by Alen Aguilar MD at OR [facility] CYSTOURETERO W/BIOPSY N/A 02/28/2019 CYSTOURETHROSCOPY URETEROSCOPY WITH BIOPSY AND OR FULGURATION LESION performed by Alen Aguilar MD at OR [facility] CYSTOURETERO W/BIOPSY Bilateral 09/21/2019 CYSTOURETHROSCOPY URETEROSCOPY WITH BIOPSY AND OR FULGURATION LESION performed by Alysa Valente MD at OR [facility] CYSTOURETHROSCOPY W/BIOPSY N/A 05/22/2021 CYSTOURETHROSCOPY WITH BIOPSY performed by Alysa Valente MD at OR [facility] ENDOVASC ABDO REPR W/BI DEVICE N/A 03/29/2017 ENDOVASCULAR REPAIR ABDOMINAL AORTIC ANEURYSM BIF PROS 1 LIMB performed by Lisa Emerson MD at OR [facility] FLUORO PYELOGRAM RETROGRADE Left 02/28/2019 UROGRAHY, RETROGRADE, WITH OR WITHOUT KUB performed by Alen Aguilar MD at OR [facility] FLUORO PYELOGRAM RETROGRADE Bilateral 09/21/2019 UROGRAHY, RETROGRADE, WITH OR WITHOUT KUB performed by Alysa Valente MD at OR [facility] INFORMATION open heart surgery [facility] INFORMATION 07/1999 bladder [facility] danella INFORMATION 03/29/2017 model# [id number]/[id number] AFX Endovascular AAA Stent Graft Extension INFORMATION 03/29/2017 model# A25-25/[id number] AFX Endovascular AAA Stent Limb Extension INJECT DX/THER SUBSTANCE INTERLAMINAR LUMBAR/SACRAL W IMAGE GUIDE 05/25/2019 INJECTION SPINE LUMBAR OR SACRAL performed by [place] Maribel Gil DO at OR [facility] INJECT DX/THER SUBSTANCE INTERLAMINAR LUMBAR/SACRAL W IMAGE GUIDE 06/22/2019 INJECTION SPINE LUMBAR OR SACRAL performed by Michel Gil DO at OR [facility] INJECT DX/THER SUBSTANCE INTERLAMINAR LUMBAR/SACRAL W IMAGE GUIDE 02/01/2020 INJECTION SPINE LUMBAR OR SACRAL performed by Michel Gil DO at OR [facility] IOF CT GUIDED NEEDLE BIOPSY 03/06/2011 CT GUIDED NEEDLE ASPIRATION BIOPSY performed by DUDLEY WARNER at RADIOLOGY [facility] IR ENDOVASCULAR REPAIR ILIAC 04/17/04 right common [...] Stroke Other many family members Hypertension Sister Family Status Relation Status Mo at age 72 [place] breast Fa at age 83 [place], abdominal aneurysm Sis Alive HTN Renetta Alive Renetta Alive Renetta Alive Son Alive Son Alive Other (Not Specified) Other (Not Specified) Sis (Not Specified) Social History Tobacco Use Smoking status: Former Current packs/day: 0.00 Average packs/day: 1 pack/day for 20.0 years (20.0 ttl pk-yrs) Types: Cigarettes Start date: 11/25/1977 Quit date: 11/25/1997 Years since quittin.1 Passive exposure: Past Smokeless tobacco: Never Tobacco comments: quit smoking about 1997 Substance Use Topics Alcohol use: Yes Comment: occassionally Vaping/E-Cigarette Use Vaping/E-Cigarette Use Never User Passive Exposure No Counseling Given? No Vaping/E-Cigarette Substances Nicotine No Other No Flavoring No THC No Cannabidiol (CBD) No Vaping/E-Cigarette Devices Disposable No Pre-filled or Refillable Cartridge No Refillable Tank No Pre-filled Pod No REVIEW OF SYSTEMS: Review of Systems Constitutional: Negative for chills, fatigue, fever and unexpected weight change. Respiratory: Negative for cough, chest tightness, shortness of breath and wheezing. Cardiovascular: Negative for chest pain, palpitations and leg swelling. Gastrointestinal: Negative for abdominal pain, constipation, diarrhea, nausea and vomiting. Musculoskeletal: Positive for neck pain. Negative for arthralgias, gait problem and joint swelling. Skin: Negative for color change, pallor and rash. OBJECTIVE: BP 132/70 (BP Site: Left Arm, BP Position: Sitting, BP Cuff Size: Regular) | Pulse 64 | Temp 37.1 C (98.8 F) (Tympanic) | Resp 14 | Ht 1.619 m (5' 3.75") | Wt 62.4 kg (137 lb 8 oz) | SpO2 98% | BMI 23.79 kg/m | BSA 1.68 m PHYSICAL EXAM: Physical Exam Constitutional: General: He is not in acute distress. Appearance: He is well-developed. Cardiovascular: Rate and Rhythm: Normal rate and regular rhythm. Heart sounds: Normal heart sounds. No murmur heard. No friction rub. No gallop. Pulmonary: Effort: Pulmonary effort is normal. No respiratory distress. Breath sounds: Normal breath sounds. No wheezing or rales. Abdominal: General: Bowel sounds are normal. There is no distension. Palpations: Abdomen is soft. Tenderness: There is no abdominal tenderness. There is no guarding. Musculoskeletal: General: Tenderness (along B/L cervical paraspinal musculature, some spasm noted, some bony midlinetenderness) present. No deformity. Comments: Decreased ROM in all directions Skin: General: Skin is warm and dry. Coloration: Skin is not pale. Findings: No erythema or rash. Neurological: Mental Status: He is alert and oriented to person, place, and time. ASSESSMENT/PLAN: (M54.2) Neck pain (primary encounter diagnosis) Plan: XR C SPINE 4-5 VIEWS, predniSONE 20 MG Oral Tablet (Deltasone) X-ray with arthritis. I do not see acute fracture. Will start course of prednisone. Can use topicalicyhot/bengay. Can use heat. Consider PT if no improvement. Follow-up: as scheduled with PCP Total time today including reviewing chart before the visit, pertinent labs, imaging reports, face to face time, and documentation time was 33 minutes. Kerry Jean DO documented in this encounter Nursing Notes * Janice Robles LPN - 01/06/2024 1:38 PM EDT Patient here for follow up visit. Reports yesterday he turned his head to extreme right and felt pain in his neck. Reports pain on both sides of his neck with movement. Has tried heating pad without relief. Denies headache, no difficulty swallowing, denies any new tingling/numbness in extremities. documented in this encounter Plan of Treatment Upcoming Encounters Date Type Department Care Team (Late st Contact Info) Description 01/12/2024 3:40 PM EDT Office Visit Family Practice [address] [facility] 293 [facility] [address] Javon Scales DO [address] [facility], [place] [address] 01/14/2024 12:30 PM EDT Imaging Radiology [facility] 1st [facility] [address] [place] [address] 01/24/2024 2:00 PM EDT Procedure Only Urology, [place] [address] [place] [address] Jose Lisa MD [address] [place] [address] 05/03/2024 1:45 PM EST Office Visit Urology, [place] [address] [place] [address] Baudilio Rosas MD [address] [place] [address] 08/07/2024 2:30 PM EST Office Visit Hematology/Oncology [facility] [address] [facility] [place] [phone] Funmilayo Peter MD 200 [place] [address] 09/05/2024 4:00 PM EDT Office Visit Cardiology, [facility] [address] [address] Sridhar Fay MD [address] [place] [address] 09/26/2024 11:00 AM EDT Nurse Only Ancillary [address] [facility] 293 [facility] [address] College, Nurse Annual Wellness Visit [address] [facility] [address] Pending Results Name Type Priority Associated Diagnoses Date /Time XR C SPINE 4-5 VIEWS Medical Imaging Routine Neck pain 01/06/2024 2:14 PM EDT Health Maintenance Due Date Last Done Comments COVID-19 Vaccine (2022- season) 2023 05/19/2022, 04/24/2021, 09/06/2020, Additional history exists Influenza Vaccine (FLU shot) (#1) 2024 03/11/2023, 02/23/2022, 02/19/2021, Additional history exists Albumin/Creatinine Ratio 04/26/2024 023, 07/13/2022, 07/08/2021 CKD PHOS USE SMARTSET 58442 07/27/202407/09, 02/25/2022, 01/29/2021 Depression Screening 09/20/2024 09/21/2023 CKD HGB USE SMARTSET 91937 11/28/202411/28, 11/29/2023, 07/27/2023, Additional history exists DTaP,Tdap,and [...] this encounter Medical Devices Implanted Type Area Medication Manager Device Identifier Shelf Expiration Date Model / Serial / Lot Bifurcated Endograft Implanted:Qty: 1 on 03/29/2017 by Lisa Emerson MD at OR [facility] N/A: Aorta ENDOLOGIX 01/13/2018 [id number] 6-40 / [id number] / Proximal Endograft Implanted:Qty: 1 on 03/29/2017 by Lisa Emerson MD at OR [facility] N/A: Aorta ENDOLOGIX 01/16/2020 A25-25/C75- [id number] / [id number] / documented as of this encounter Visit Diagnoses Diagnosis Neck pain- Primary Cervicalgia documented in this encounter Advance Directives * Full Code (Latest Code Status on File) Date Activated Date Inactivated Comments 03/29/2017 2:46 PM 03/31/2017 3:33 PM This order reflects the patients wishes and were consensually agreed upon. Care Teams Type Inspector Relationship Specialty Start Date End Date Javon Scales DO [address] [place] [address] PCP - General Internal Medicine 11/19/23 documented as of this encounter
--- OUTSIDE RECORDS SUMMARY | 2024-05-15 19:05 | External Medical Summary | Summary of Care ---
Author Name Unknown Organization [facility] Address [address] [facility] [address] Phone [phone] Care Team Providers Care Dental Receptionist Name Role Phone MitchclaraJavon DO Primary Care Provider [phone] Encounter Details Date Type Department Care Team (Late st Contact Info) Description 01/04/2024 Telephone OR [facility], Operating Room [facility] [address] [place] [phone] Kvng Dupont MD [address] [place] [address] Allergies Active Allergy Reactions Criticality Noted Date [...] 1 Capsule daily . Active Saline Nasal [place] 0.65 % Nasal Solution ([place])Indications: Epistaxis Administer into nostril 2 Sprays in the morning AND 2 Sprays before bedtime. 30 mL 12 07/29/2021 Active Nitroglycerin 0.4 MG Sublingual Tablet Sublingual (Nitrostat)Indicati ons:Atherosclerosis of [place] coronary artery of [place] heart without angina pectoris one tab under [...] (Tenormin)Indicatio ns:HTN, goal below 140/90,Atherosclero sis of [place] coronary artery of [place] heart without angina pectoris Take 1 tablet [...] CORONARY ATHEROSCLEROSIS OF UNSPECIFIED TYPE OF VESSEL, [place] OR GRAFT History of bladder cancer documented [...] mRNA, LNP-s, No Pre serve, 2-Dose Series (AngioSlide) 04/24/2021,09/06/2020,08/09/2020 Covid-19, Mrna, Lnp-s, Pf, B ivalent, 30 Mcg, IM, 12 yrs and above (AngioSlide) 05/19/2022 H1N1 2009 Influenza, IM 05/28/2009 Influenza, [...] encounter Miscellaneous Notes * Telephone Encounter - Sanaz Romano OSA - 01/06/2024 10:51 AM EDT Noted. * Telephone Encounter - Monica Oneill RN - 01/04/2024 12:24 PM EDT This patient is scheduled for EGD on 01-13-24 and call placed to patient for PAT.evaluation Patient is requesting to cancel EGD for that date stating symptoms of dysphagia have resolved. Patient was started on antibiotic yesterday for tooth infection and planning to f/u with dentist for further work following completion of antibiotic. Patient made aware he will be taken off the scheduled for 01-13-24and he does not wish to be rescheduled at this time documented in this encounter Plan of Treatment Upcoming Encounters Date Type Department Care Team (Late st Contact Info) Description 01/06/2024 1:40 PM EDT Office Visit [address] [place] [address] Kerry Jean, DO [address] [place] [address] 01/12/2024 3:40 PM EDT Office Visit [facility] [address] [facility] [address] [place] [address] Javon Scales, DO [address] [place] [address] 01/14/2024 12:30 PM EDT Imaging Radiology [facility] 1st [facility] [place] [address] [facility] [place] [address] 01/24/2024 2:00 PM EDT Procedure Only Urology, [address] [place] [address] Jose Lisa MD [address] [place] [address] 05/03/2024 1:45 PM EST Office Visit Urology, [place] [address] [place] [address] Baudilio Rosas MD [address] [place] [address] 08/07/2024 2:30 PM EST Office Visit Hematology/Oncology [facility] 200 [facility] [place] [phone] Funmilayo Peter MD [address] [facility] [place] [address] 09/05/2024 4:00 PM EDT Office Visit Cardiology, [facility] 132 [place] [address] Sridhar Fay MD [address] [place] [address] 09/26/2024 11:00 AM EDT Nurse Only Ancillary [address] [facility] [address] [place] [address] College, Nurse Annual Wellness Visit [address] [address] Health Maintenance Due Date Last Done Comments COVID-19 Vaccine ( season) 2023 05/19/2022, 04/24/2021, 09/06/2020, Additional history exists Influenza Vaccine (FLU shot) (#1) 2024 03/11/2023, 02/23/2022, 02/19/2021, Additional history exists Albumin/Creatinine Ratio 04/26/2024 023, 07/13/2022, 07/08/2021 CKD PHOS USE SMARTSET 66111 07/27/202407/09, 02/25/2022, 01/29/2021 Depression Screening 09/20/2024 09/21/2023 CKD HGB USE SMARTSET 54402 11/28/202411/28, 11/29/2023, 07/27/2023, Additional history exists DTaP,Tdap,and [...] this encounter Medical Devices Implanted Type Area Round Boner Device Identifier Shelf Expiration Date Model / Serial / Lot Bifurcated Endograft Implanted:Qty: 1 on 03/29/2017 by Lisa Emerson MD at [place] [facility] N/A: Aorta ENDOLOGIX 01/13/2018 [id number] 6-40 / [id number] / Proximal Endograft Implanted:Qty: 1 on 03/29/2017 by Lisa Emerson MD at OR [facility] N/A: Aorta ENDOLOGIX 01/16/2020 A25-25/C75- [id number] / [id number] / documented as of this encounter Advance Directives * Full Code (Latest Code Status on File) Date Activated Date Inactivated Comments 03/29/2017 2:46 PM 03/31/2017 3:33 PM This order reflects the patients wishes and were consensually agreed upon. Care Teams Dental Receptionist Relationship Specialty Start Date End Date Javon Scales DO [address] [facility] [place] [address] PCP - General Internal Medicine 11/19/23 documented as of this encounter
--- OUTSIDE RECORDS SUMMARY | 2024-05-15 19:06 | External Medical Summary ---
Author Name Unknown Address Unknown Organization K01:[facility] [address] [place] [address] Laboratory Report Ordering Provider Test Date Status АННА KAMARA 11/29/2023 14:09:05 Final Observation Date Value Abnormality Reference (Units ) Status LDH 11/29/2023 14:09:05 148 <=250 (U/L ) Final Performing Location [facility] [address] [place] [address]
--- OUTSIDE RECORDS SUMMARY | 2024-05-15 19:06 | External Medical Summary | Summary of Care ---
Author Name Unknown Organization [facility] Address [address] [facility] [address] Phone [phone] Care Team Providers Care Alternative Dispute Resolution Mediator Name Role Phone Asad Scales Apolonia ARMENTA Primary Care Provider [phone] Reason for Visit * Reason Comments Follow Up Skin check- no acute concerns Encounter Details Date Type Department Care Team (Late st Contact Info) Description 12/06/2023 9:15 AM EDT Office Visit Dermatology [facility] [address] [facility] [place] [address] David Whiting MD [address] [facility] [place] [address] History of nonmelanoma skin cancer*; Actinic skin damage; Seborrheic keratoses; Hx of basal cell carcinoma; Hx of squamous cell carcinoma; Scar; Angiokeratoma Allergies Active Allergy Reactions Criticality Noted Date Comments Ciprofloxacin 09/27/2018 Stomach upset Finasteride Other (Please comment) 09/21/2023 Enlarged breast tissue Tamsulosin Hcl 01/14/2010 collapse Levofloxacin Other (Please comment) 03/05/2017 Hx of achilles tendon tear Atorvastatin Abdominal pain 12/23/2015 Lisinopril 03/11/2007 Caused pt to have blurred vision and become very flushed Simvastatin Abdominal pain 12/23/2015 documented as of this encounter (statuses as of 12/06/2023) Medications Medication Sig Dispensed Refills Start Date [...] Saline Nasal [place] 0.65 % Nasal Solution ([place])Indications: Epistaxis Administer into nostril 2 Sprays in the morning AND 2 Sprays before bedtime. 30 mL 12 07/29/2021 Active Nitroglycerin 0.4 MG Sublingual Tablet Sublingual (Nitrostat)Indicati ons:Atherosclerosis of [place] coronary artery of [place] heart without angina pectoris one tab under [...] (Tenormin)Indicatio ns:HTN, goal below 140/90,Atherosclero sis of [place] coronary artery of [place] heart without angina pectoris Take 1 tablet [...] as needed for Pain, Severe. 90 Tablet 11/12/2023 Active documented as of this encounter (statuses as of 12/06/2023) Active Problems Problem Noted Date Diagnosed Date [...] CORONARY ATHEROSCLEROSIS OF UNSPECIFIED TYPE OF VESSEL, CADDO OR GRAFT History of bladder cancer documented as of this encounter (statuses as of 12/06/2023) Resolved Problems Problem Noted Date Diagnosed Date [...] and embolization 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[place]10 [facility] [place]1 month s/p reintervention for his R [...] as of this encounter (statuses as of 12/06/2023) Immunizations Name Administration Dates Next Due COVID-19 mRNA, LNP-s, No Pre serve, 2-Dose Series ([email or web address]) 04/24/2021,09/06/2020,08/09/2020 Covid-19, Mrna, Lnp-s, Pf, B ivalent, [...] as of this encounter Progress Notes * David Whiting MD - 12/06/2023 9:32 AM EDT SUBJECTIVE: Chief Complaint: Chief Complaint Patient presents with Follow Up Skin check- no acute concerns HPI: Cedric Sam Jr. is a 88 year old male seen for a full skin check for history of nonmelanoma skin cancer. 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/26, BCC on the nasal dorsum 06/22, BCC left garcia 06/22, SCC right forearm 04/21, BCC right posterior ear, BCC right ear crease 06/21, BCC upper back 06/20 and BCC left post-auricular ear 10/06 REVIEW OF SYSTEMS: CONSTITUTIONAL: negative SKIN: No new or changing moles or rashes other than those noted in HPI HEME/LYMPH: No new or enlarging lumps or bumps OBJECTIVE: GEN: Elderly but alert, no distress, appears oriented, pleasant, and cooperative SKIN: Detailed exam of hair, face, trunk, arms, and legs Scrotum with several purple dome-shaped papules Well-healed scar(s) at primary site(s) without evidence of recurrence Scattered on face, chest, back - diffuse mottled hypopigmented and hyperpigmented macules without significant irregularity. Associated telangiectasias At the trunk and extremities are several scattered mo/brown hyperkeratotic stuck on appearing waxypapules. ASSESSMENT/PLAN: Angiokeratomas - A total of 7 lesion(s) were treated with hyfrecation (benign destruction). The patient tolerated the procedure well without complications. Wound care instructions were given. Scar(s), History of Nonmelanoma Skin Cancer - Well healed scar(s) with no evidence of recurrence - Recommended periodic skin exams and instructed to call clinic if patient notices any changing lesions, including rapid enlargement, changes in color or shape or symptoms, bleeding, or other concerns. The common features and behavior of non-melanoma skin cancers (e.g. basal cell carcinoma/squamouscell carcinoma) as well as the features of melanoma were also reviewed. -Daily sun protection recommended including physical (i.e. clothing) and chemical blockers. Broad spectrum sunscreens with at least SPF 30 for UVA and UVA protection were recommended. Chronic Actinic Damage - Discussed that skin changes are due to chronic sun exposure. - Daily sun protection recommended as discussed above Seborrheic keratoses - The benign nature of these lesions was discussed with the patient and that no treatment is indicated today. David Whiting MD Ref: SELF[[id number]] NO STRE[address] ADDRESS AVAILABLE None (office) None (fax) PCP: ASAD SCALES [address] [place] [address] [phone] documented in this encounter Nursing Notes * Kendal Salter LPN - 12/06/2023 9:17 AM EDT Patient identified by name and date of . Do you have any concerns about pain management for today's visit? No Living Will or Advance Directive for Health Care as noted on problem list. [facility] is a way you can talk to your provider online through e-mail. Would you like to sign up? I can activate it for you? ALREADY ACTIVE Chief Complaint Patient presents with Follow Up Skin check- no acute concerns documented in this encounter Plan of Treatment Upcoming Encounters Date Type Department Care Team (Latest Contact Info) Description 01/05/2024 10:45 AM EDT [facility] [address] [place] [address] Martir Lazar MD [address] [facility] [place] [address] 01/12/2024 3:40 PM EDT Office Visit Family Practice [address] [place] [address] [address] [place] [address] Asad Scales DO [address] [place] [address] 01/13/2024 10:00 AM EDT Hospital Encounter ENDO OSS, Endoscopy Room [facility] [address] [place] [address] Kvng Dupont MD [address] [place] [address] 01/13/2024 10:00 AM EDT - 01/13/2024 10:30 AM EDT Surgery ENDO OSSC, Endoscopy Room [facility] [address] [place] [phone] Kvng Dupont MD [address] [place] [address] ESOPHAGOGASTRODUODENOSCOPY (EGD), FLEXIBLE, TRANSORAL, DIAGNOSTIC 01/24/2024 2:00 PM EDT Procedure Only Urology, [address] [address] Jose Lisa MD [address] [place] [address] 05/03/2024 1:45 PM EST Office Visit Urology, [place] [address] [place] [address] Baudilio Rosas MD [address] [place] [address] 09/06/2024 2:30 PM EDT Office Visit Cardiology, [facility] [address] [place] [address] Sridhar Fay MD [address] [place] [address] 09/26/2024 11:00 AM EDT Nurse Only Ancillary [facility] [address] [place] [address] College, Nurse Annual Wellness Visit [address] [address] Scheduled Procedures Name Priority Associated Diagnoses Date/Ti me ESOPHAGOGASTRODUODENOSCOPY ( EGD), FLEXIBLE, TRANSORAL, DIAGNOSTIC Dysphagia 01/13/2024 10:00 AM EDT Health Maintenance Due Date Last Done Comments COVID-19 Vaccine ( season) 2023 05/19/2022, 04/24/2021, 09/06/2020, Additional history exists Influenza Vaccine (FLU shot) (#1) 2024 03/11/2023, 02/23/2022, 02/19/2021, Additional history exists Albumin/Creatinine Ratio 04/26/2024 023, 07/13/2022, 07/08/2021 CKD PHOS USE SMARTSET 76827 07/27/202407/09, 02/25/2022, 01/29/2021 Depression Screening 09/20/2024 09/21/2023 CKD HGB USE SMARTSET 86548 11/28/202411/28, 11/29/2023, 07/27/2023, Additional history exists DTaP,Tdap,and Td Vaccines (3 - Td or Tdap) 04/26/2033 04/26/2023, 02/19/2013, 08/11/2007 Pneumococcal Vaccine: 65+ Years Completed 10/16/2014, 05/13/2006, 06/07/1997 Zoster Vaccines Completed 08/16/2019, 05/07, 05/23/2007 GARDASIL-HPV IMMUNIZATION SERIES Aged Out No longer eligible based on patient's age to complete this topic Hepatitis B Aged Out No longer eligi ble based on patient's age to complete this topic MENINGOCOCCAL (MENACTRA/MENVEO) Aged Out No longer eligible based on patient's age to complete this topic documented as of this encounter Medical Devices Implanted Type Area Child Care Associate Device Identifier Shelf Expiration Date Model / Serial / Lot Bifurcated Endograft Implanted:Qty: 1 on 03/29/2017 by Lisa Emerson MD [place] [facility] [place]A: Aorta ENDOLOGIX 01/13/2018 [id number] 6-40 / [id number] / Proximal Endograft Implanted:Qty: 1 on 03/29/2017 by Lisa Emerson MD [place] [facility] [place]/A: Aorta ENDOLOGIX 01/16/2020 A25-25/C75- [id number] / [id number] / documented as of this encounter Visit Diagnoses Diagnosis History of nonmelanoma skin cancer- Primary Personal history of other malignant neoplasm of skin Actinic skin damage Other dermatitis due to solar radiation Seborrheic keratoses Hx of basal cell carcinoma Personal history of other malignant neoplasm of skin Hx of squamous cell carcinoma Personal history of malignant neoplasm of other site Scar Scar condition and fibrosis of skin Angiokeratoma Benign neoplasm of skin, site unspecified Dysphagia Dysphagia, unspecified documented in this encounter Advance Directives * Full Code (Latest Code Status on File) Date Activated Date Inactivated Comments 03/29/2017 2:46 PM 03/31/2017 3:33 PM This order reflects the patients wishes and were consensually agreed upon. Care Teams Alternative Dispute Resolution Mediator Relationship Specialty Start Date End Date Aasd Scales DO [address] [place] [address] PCP - General Internal Medicine 11/19/23 documented as of this encounter
--- OUTSIDE RECORDS SUMMARY | 2024-05-15 19:06 | External Medical Summary | Summary of Care ---
Author Name Unknown Organization [facility] Address [address] [facility] [address] Phone [phone] Care Team Providers Care At Home Independent Call Center Agent Name Role Phone MitchclaraJavon DO Primary Care Provider [phone] Encounter Details Date Type Department Care Team (Late st Contact Info) Description 12/20/2023 Telephone Gastroenterology, [facility] [address] [place] [address] Kvng Dupont MD [address] [place] [address] Allergies Active Allergy Reactions Criticality Noted Date Comments Ciprofloxacin 09/27/2018 Stomach upset Finasteride Other (Please comment) 09/21/2023 Enlarged breast tissue Tamsulosin Hcl 01/14/2010 collapse Levofloxacin Other (Please comment) 03/05/2017 Hx of achilles tendon tear Atorvastatin Abdominal pain 12/23/2015 Lisinopril 03/11/2007 Caused pt to have blurred vision and become very flushed Simvastatin Abdominal pain 12/23/2015 documented as of this encounter (statuses as of 12/20/2023) Medications Medication Sig Dispensed Refills Start Date [...] 1 Capsule daily . Active Saline Nasal [place] 0.65 % Nasal Solution ([place])Indications: Epistaxis Administer into nostril 2 Sprays in the morning AND 2 Sprays before bedtime. 30 mL 12 07/29/2021 Active Nitroglycerin 0.4 MG Sublingual Tablet Sublingual (Nitrostat)Indicati ons:Atherosclerosis of [place] coronary artery of [place] heart without angina pectoris one tab under [...] (Tenormin)Indicatio ns:HTN, goal below 140/90,Atherosclero sis of [place] coronary artery of [place] heart without angina pectoris Take 1 tablet [...] for Pain, Severe. 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 [...] as of this encounter (statuses as of 12/20/2023) Immunizations Name Administration Dates Next Due COVID-19 mRNA, LNP-s, No Pre serve, 2-Dose Series ([place] [employer]) 04/24/2021,09/06/2020,08/09/2020 Covid-19, Mrna, Lnp-s, Pf, B ivalent, [...] 01/05/2024 10:45 AM EDT Office Visit Hematology/Oncol [place] [facility] [address] [place] [address] Martir Lazar MD [address] [place] [address] 01/12/2024 3:40 PM EDT Office Visit Family [address] [place] [address] Javon Scales DO [address] [place] [address] 01/13/2024 10:00 AM EDT Hospital Encounter ENDO [facility], Endoscopy Room [facility] [address] [place] [phone] Kvng Dupont MD [address] [place] [address] 01/13/2024 10:00 AM EDT - 01/13/2024 10:30 AM EDT Surgery ENDO [facility], Endoscopy Room [facility] [address] [place] [phone] Kvng Dupont MD [address] [place] [address] ESOPHAGOGASTRODUODENOSCOPY (EGD), FLEXIBLE, TRANSORAL, DIAGNOSTIC 01/24/2024 2:00 PM EDT Procedure Only Urology, [place] [address] [place] [address] Jose Lisa MD [address] [place] [address] 05/03/2024 1:45 PM EST Office Visit Urology, [place] [address] [place] [address] Baudilio Rosas MD [address] [place], [place] [id number] 09/06/2024 2:30 PM EDT Office Visit Cardiology, [facility] [address] [place] [address] Sridhar Fay MD [address] [place] [address] 09/26/2024 11:00 AM EDT Nurse Only Ancillary 65 [facility] [address] [place] [address] College, Nurse Annual Wellness Visit [address] [facility] [address] [place] [address] Scheduled Procedures Name Priority Associated Diagnoses Date/Ti me ESOPHAGOGASTRODUODENOSCOPY ( EGD), FLEXIBLE, TRANSORAL, DIAGNOSTIC Dysphagia 01/13/2024 10:00 AM EDT Health Maintenance Due Date Last Done Comments COVID-19 Vaccine ( season) 2023 05/19/2022, 04/24/2021, 09/06/2020, Additional history exists Influenza Vaccine (FLU shot) (#1) 2024 03/11/2023, 02/23/2022, 02/19/2021, Additional history exists Albumin/Creatinine Ratio 04/26/2024 023, 07/13/2022, 07/08/2021 CKD PHOS USE SMARTSET 01631 07/27/202407/09, 02/25/2022, 01/29/2021 Depression Screening 09/20/2024 09/21/2023 CKD HGB USE SMARTSET 21614 11/28/202411/28, 11/29/2023, 07/27/2023, Additional history exists DTaP,Tdap,and [...] this encounter Medical Devices Implanted Type Area Levee Superintendent Device Identifier Shelf Expiration Date Model / Serial / Lot Bifurcated Endograft Implanted:Qty: 1 on 03/29/2017 by Lisa Emerson MD at [place] [facility] N/A: Aorta ENDOLOGIX 01/13/2018 [id number] 6-40 / [id number] / Proximal Endograft Implanted:Qty: 1 on 03/29/2017 by Lisa Emerson MD at [place] [facility] N/A: Aorta ENDOLOGIX 01/16/2020 A25-25/C75- [id number] / [id number] / documented as of this encounter Advance Directives * Full Code (Latest Code Status on File) Date Activated Date Inactivated Comments 03/29/2017 2:46 PM 03/31/2017 3:33 PM This order reflects the patients wishes and were consensually agreed upon. Care Teams At Home Independent Call Center Agent Relationship Specialty Start Date End Date Javon Scales DO [address] [place] [address] PCP - General Internal Medicine 11/19/23 documented as of this encounter
--- OUTSIDE RECORDS SUMMARY | 2024-05-15 19:06 | External Medical Summary ---
Author Name Unknown Address Unknown Organization K01:[facility] - [address] [place] [address] Laboratory Report Ordering Provider Test Date Status АННА KAMARA 12/08/2023 11:21:50 Final Observation Date Value Abnormality Reference (Units ) Status Albumin 12/08/2023 11:21:50 3.8 3.8-5.0 (g /dL) Final Performing Location [facility] - [address] [place] [address]
--- OUTSIDE RECORDS SUMMARY | 2024-05-15 19:06 | External Medical Summary | Summary of Care ---
Author Name Unknown Organization [facility] Address [address] [place] [address] Phone [phone] Care Team Providers Care Overhead Foreman Name Role Phone Asad Scales DO Primary Care Provider [phone] Reason for Visit * Reason Onset Date Comments Medication Refill 12/07/2023 Encounter Details Date Type Department Care Team (Late st Contact Info) Description 12/07/2023 Refill Family Practice [address] [facility], [place] [address] [place] [id number] Asad Scales DO [address] [place] [address] Lumbar degenerative disc disease; Spinal stenosis of [...] as of this encounter (statuses as of 12/10/2023) Medications Medication Sig Dispensed Refills Start Date [...] S) 8.6-50 MG per tabletIndications :Drug induced constipation,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 Active Saline Nasal [place] 0.65 % Nasal Solution ([place])Indication s:Epistaxis Administer into nostril 2 Sprays in the morning AND 2 Sprays before bedtime. 30 mL 12 07/29/2021 Active Nitroglycerin 0.4 MG Sublingual Tablet Sublingual (Nitrostat)Indica tions:Atheroscler osis of [place] coronary artery of [place] heart without angina pectoris one tab under [...] (Tenormin)Indicat ions:HTN, goal below 140/90,Atheroscle rosis of [place] coronary artery of [place] heart without angina pectoris Take 1 tablet [...] for Pain, Severe. 90 Tablet 12/10/2023 Active oxyCODONE HCl 5 MG Oral Tablet (Oxy IR)Indications:[place] mbar degenerative disc disease,Spinal stenosis of lumbar region at multiple levels,Chronic bilateral low back pain with bilateral sciatica Take 1 Tablet by mouth every 8 hours as needed for Pain, Severe. 90 Tablet 11/12/2023 Discontinue d(Refill) documented as of this encounter (statuses as of 12/10/2023) Active Problems Problem Noted Date Diagnosed Date [...] CORONARY ATHEROSCLEROSIS OF UNSPECIFIED TYPE OF VESSEL, PUYALLUP OR GRAFT History of bladder cancer documented as of this encounter (statuses as of 12/10/2023) Resolved Problems Problem Noted Date Diagnosed Date [...] as of this encounter (statuses as of 12/10/2023) Immunizations Name Administration Dates Next Due COVID-19 mRNA, LNP-s, No Pre serve, 2-Dose Series ([email or web address]) 04/24/2021,09/06/2020,08/09/2020 Covid-19, Mrna, Lnp-s, Pf, B ivalent, [...] No 04/26/2023 Does the household have a [facility] income? (Household - [...] Telephone Encounter - Asad Scales DO - 12/10/2023 8:13 AM EDTSigned Prescriptions: Disp Refills oxyCODONE HCl 5 MG Oral Tablet (Oxy IR) 90 Tab*0 Sig: Take 1 Tablet by mouth every 8 hours as needed for Pain, Severe.Authorizing Provider: ASAD SCALES--------- * Telephone Encounter - Asad Scales DO - 12/10/2023 8:12 AM EDT 12/11/2023 is Wednesday. Will renew medication today. * Telephone Encounter - Asad Scales DO - 12/08/2023 11:44 AM EDT I have reviewed the patients controlled substance dispensing history in the Prescription Drug Monitoring Program in compliance with the [facility] regulations before prescribing a controlled substance. [...] in Results Review. * Telephone Encounter - [facility] - 12/08/2023 9:54 AM EDTPending Prescriptions: Disp Refills oxyCODONE HCl 5 MG Oral Tablet (Oxy IR) 90 Tab*0 Sig: Take 1 Tablet by mouth every 8 hours as needed for Pain, Severe. * Telephone Encounter - [facility] - 12/08/2023 9:53 AM EDT I have reviewed the patients controlled substance dispensing history in the Prescription Drug Monitoring Program in compliance with the [facility] regulations before prescribing a controlled substance. PDMP checked on 12/08/2023. Pending Prescriptions: Disp Refills oxyCODONE HCl 5 MG Oral Tablet (Oxy IR) 90 Tab*0 Sig: Take 1 Tablet by mouth every 8 hours as needed for Pain, Severe. Last Visit: 11/29/2023 (in office), 11/29/2023 (telemedicine) Next Visit: 01/12/2024 Date medication was last filled: 11/12/23 Date medication is due for refill: 12/11/23 Pharmacy: [facility] [address] [place] [address] Is this request for a controlled substance? Yes and Urine Drug Screen was completed Toxicology results: Results for orders placed [...] Results Review. Please approve if appropriate. Thank You, [facility] Clinical Pharmacist [facility] ([facility]) [phone] 12/08/2023, 9:53 AM * Telephone Encounter - Jacque Juarez CPhT - 12/07/2023 9:17 AM EDT Did you pend patient's preferred pharmacy and medication before forwarding?yes Pharmacy: [facility] [address] [place] [address] [place] [address] Pending Prescriptions: Disp Refills oxyCODONE HCl 5 [...] appointment Last date the medication was ordered: 11/12/23 Is this request for a controlled substance?Yes, What was the last refill date 11/12/23 w/ quantity 90 and dosage 5 and Urine Drug Screen [...] AM EDT [facility] [address] [facility] [place], [place] [phone] Martir Lazar MD [address] [facility] [place], [place] [address] 01/12/2024 3:40 PM EDT Office Visit Family Practice [address] [place] [address] [address] [place] [address] Asad Scales DO [address] [place] [address] 01/13/2024 10:00 AM EDT Hospital Encounter ENDO [facility], Endoscopy Room [facility] [address] [place] [phone] Kvng Dupont MD [address] [place] [address] 01/13/2024 10:00 AM EDT - 01/13/2024 10:30 AM EDT Surgery ENDO [facility], Endoscopy Room [facility] [address] [place] [phone] Kvng Dupont MD [address] [place] [address] ESOPHAGOGASTRODUODENOSCOPY (EGD), FLEXIBLE, TRANSORAL, DIAGNOSTIC 01/24/2024 2:00 PM EDT Procedure Only Urology, [place] [address] [place] [address] Jose Lisa MD [address] [place] [address] 05/03/2024 1:45 PM EST Office Visit Urology, [place] [address] [place] [address] Baudilio Rosas MD [address] [place] [address] 09/06/2024 2:30 PM EDT [facility] [place] [address] Sridhar Fay MD [address] [place] [address] 09/26/2024 11:00 AM EDT Nurse Only Ancillary [address] [facility] [address] [place] [address] College, Nurse Annual Wellness Visit [address] [facility] [address] [place] [address] Scheduled Procedures Name Priority Associated Diagnoses Date/Ti me ESOPHAGOGASTRODUODENOSCOPY ( EGD), FLEXIBLE, TRANSORAL, DIAGNOSTIC Dysphagia 01/13/2024 10:00 AM EDT Health Maintenance Due Date Last Done Comments COVID-19 Vaccine ( season) 2023 05/19/2022, 04/24/2021, 09/06/2020, Additional history exists Influenza Vaccine (FLU shot) (#1) 2024 03/11/2023, 02/23/2022, 02/19/2021, Additional history exists Albumin/Creatinine Ratio 04/26/2024 023, 07/13/2022, 07/08/2021 CKD PHOS USE SMARTSET 77489 07/27/202407/09, 02/25/2022, 01/29/2021 Depression Screening 09/20/2024 09/21/2023 CKD HGB USE SMARTSET 14916 11/28/202411/28, 11/29/2023, 07/27/2023, Additional history exists DTaP,Tdap,and [...] this encounter Medical Devices Implanted Type Area Admission Specialist Device Identifier Shelf Expiration Date Model / Serial / Lot Bifurcated Endograft Implanted:Qty: 1 on 03/29/2017 by Lisa Emerson MD at OR [facility] N/A: Aorta ENDOLOGIX 01/13/2018 [id number] / [id number] / Proximal Endograft Implanted:Qty: 1 on 03/29/2017 by Lisa Emerson MD at OR [facility] N/A: Aorta ENDOLOGIX 01/16/2020 [id number] / [id number] / documented as of this encounter Visit Diagnoses Diagnosis Lumbar degenerative disc disease Degeneration of lumbar or lumbosacral intervertebral disc Spinal stenosis of lumbar region at multiple levels Spinal stenosis, lumbar region, without neurogenic claudication Chronic bilateral low back pain with bilateral sciatica Dysphagia Dysphagia, unspecified documented in this encounter Advance Directives * Full Code (Latest Code Status on File) Date Activated Date Inactivated Comments 03/29/2017 2:46 PM 03/31/2017 3:33 PM This order reflects the patients wishes and were consensually agreed upon. Care Teams Overhead Foreman Relationship Specialty Start Date End Date Asad Scales DO [address] [place] [address] PCP - General Internal Medicine 11/19/23 documented as of this encounter
--- OUTSIDE RECORDS SUMMARY | 2024-05-15 19:06 | External Medical Summary | Summary of Care ---
Author Name Unknown Organization [facility] Address [address] [place] [address] Phone [phone] Care Team Providers Care Photo Checker Name Role Phone Javon Scales DO Primary Care Provider [phone] Reason for Visit * Reason Comments Follow Up Encounter Details Date Type Department Care Team (Latest Contact Info) Description 11/29/2023 1:00 PM EDT Office Visit Family Practice [address] [facility] [address] [place] [address] Javon Scales DO [address] [place] [address] Atherosclerosis of [place] coronary artery of [place] heart without angina pectoris*; Aortocoronary bypass status; RORY inhibitor intolerance; Hypertensive kidney disease with stage 3a chronic kidney disease (HCC); Thrombocytopenia (HCC); 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); DYSLIPIDEMIA, GOAL LDL BELOW 100; Benign prostatic hyperplasia with urinary retention; H/O endovascular stent graft for abdominal aortic aneurysm; History of lung cancer; Risk and functional assessment; History of bladder cancer Allergies Active Allergy [...] as of this encounter (statuses as of 11/29/2023) Medications Medication Sig Dispensed Refills Start Date [...] 1 Capsule daily . Active Saline Nasal [place] 0.65 % Nasal Solution (Sturtevant)Indications: Epistaxis Administer into nostril 2 Sprays in the morning AND 2 Sprays before bedtime. 30 mL 12 07/29/2021 Active Nitroglycerin 0.4 MG Sublingual Tablet Sublingual (Nitrostat)Indicati ons:Atherosclerosis of [place] coronary artery of [place] heart without angina pectoris one tab under [...] (Tenormin)Indicatio ns:HTN, goal below 140/90,Atherosclero sis of [place] coronary artery of [place] heart without angina pectoris Take 1 tablet [...] as of this encounter (statuses as of 11/29/2023) Active Problems Problem Noted Date Diagnosed Date [...] CORONARY ATHEROSCLEROSIS OF UNSPECIFIED TYPE OF VESSEL, ALATNA OR GRAFT History of bladder cancer documented as of this encounter (statuses as of 11/29/2023) Resolved Problems Problem Noted Date Diagnosed Date [...] stent and embolization 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/10 [facility] 08/09:1 month s/p reintervention for his R [...] as of this encounter (statuses as of 11/29/2023) Immunizations Name Administration Dates Next Due COVID-19 mRNA, LNP-s, No Pre serve, 2-Dose Series (Greats) 04/24/2021,09/06/2020,08/09/2020 Covid-19, Mrna, Lnp-s, Pf, B ivalent, 30 Mcg, IM, 12 yrs and above (Greats) 05/19/2022 H1N1 2009 Influenza, IM 05/28/2009 Influenza, [...] Sign Reading Time Taken Comments Blood Pressure 150/78 11/29/2023 12:56 PM EDT Pulse 65 11/29/2023 12:56 PM EDT Temperature 37.1 C (98.8 F) 11/29/2023 1 2:56 PM EDT Respiratory Rate 16 11/29/2023 12:5 6 PM EDT Oxygen Saturation 98% 11/29/2023 12: 56 PM EDT Inhaled Oxygen Concentration - - Weight 62.5 kg (137 lb 12.8 oz) 024 12:56 PM EDT Height 161.9 cm (5' 3.75") 11/29/2023 1 2:56 PM EDT Body Mass Index 23.84 11/29/2023 12:56 PM EDT documented in this [...] this encounter Patient Instructions * Patient Instructions* Janice Robles LPN - 11/29/2023 12:55 PM EDT Patient Instructions - Fall Prevention (This education is for all patients over 65 regardless of symptoms) Remember to take your current medications as prescribed. In order to prevent falls, you are encouraged to: Exercise Utilize assistive/adaptive devices Avoid multifocal lenses when walking Avoid hazards in home Maintain a regular toileting schedule Any questions please contact our office. Preventing Falls in the Home (This education is for all patients over 65 regardless of symptoms) As you get older, falls are more likely. Thats because your reaction time slows. Your muscles and joints may also get stiffer, making them less flexible. Illness, medications, and vision changes can also affect your balance. A fall could leave you unable to live on your own. To make your home safer, follow these tips: Floors Put nonskid pads under area rugs Remove throw rugs Replace worn floor coverings Tack carpets firmly to each step on carpeted stairs. Put nonskid strips on the edges of uncarpeted stairs Keep floors and stairs free of clutter and cords Arrange furniture so there are clear pathways Clean up any spills right away Bathrooms Install grab bars in the tub or shower Apply nonskid strips or put a nonskid rubber mat in the tub or shower Sit on a bath chair to bathe Use bathmats with nonskid backing Lighting Keep a flashlight in each room Put a nightlight along the pathway between the bedroom and the bathroom Terrell Patient Education Copyright 2008 - 2010 Terrell except where otherwise noted Preventing Falls: Exercises to Improve Balance, Flexibility, Strength, and Staying Power (This education is for all patients over 65 regardless of symptoms) Certain types of exercises may help make you less likely to fall. Try the ones below. Or do other exercises that your healthcare provider suggests. Depending on your health, you may need to start slowly. Dont let that stop you. Even small amounts of exercise can help you. Be sure to talk to yourhealthcare provider before starting any exercise program. Improve Balance Many types of exercise can help improve balance. Leo chi and yoga are good examples. Heres another one to try. You can do it anytime and almost anywhere. Stand next to a counter or solid support. Push yourself up onto your tiptoes. Hold for 5 seconds. If you start to lose your balance, hold on to the counter. Rest and repeat 5 times. Work up to holding for 20 to 30 seconds, if you can. Increase Flexibility Being more flexible makes it easier for you to move around safely. Try exercises like the seated hamstring stretch. Sit in a chair and put one foot on a stool. Straighten your leg and reach with both hands down either side of your leg. Reach as far down your leg as you can. Hold for about 20 seconds. Go back to the starting position. Then repeat 5 times. Switch legs. Build Strength Resistance exercises help build strength. You can do them without equipment. Or you can use weights, elastic bands, or special machines. One such exercise is called the biceps curl. You can hold a 1 pound weight or even a can of soup. Do this exercise at least 3 times a week. Strive for everyday. Sit up straight in a chair. Keep your elbow close to your body and your wrist straight. Bend your arm, moving your hand up to your shoulder. Then slowly lower your arm. Repeat 5 times. Switch to the other arm. Build Your Staying Power Aerobic exercises make your heart and lungs stronger so you can keep moving longer. Walking and swimming are two of the best types of exercises you can do. Using a stationary bike is great, too. Find an aerobic exercise that you enjoy. Start slowly and build up. Even 5 minutes is helpful. Aimfor a goal of 30 minutes, at least 3 times a week. You dont have to do 30 minutes in one session. Break it up and walk a little throughout the day. More Helpful Tips Start easy. Slowly work up to doing more. Talk with your healthcare provider about the best exercises for you. Call senior centers or health clubs about exercise programs. If needed, have a family member watch you walk every so often to check your stability. Exercise with a friend. Choose an activity you both enjoy. Try exercises that you can do anytime, anywhere. Here are two examples. Have someone with you when you first try these: Practice walking by placing one foot right in front of the other. Stand up and sit down 10 times. Repeat this throughout the day. Terrell Patient Education Copyright 2008 - 2010 Terrell except where otherwise noted. Preventing Falls: Moving Safely Using a Cane or Walker (This education is for all patients over 65 regardless of symptoms) Keep the cane away from your feet so you dont trip. A walking aid, such as a cane or walker, can help you stay more independent and avoid falls. Remember to keep your walking aid within easy reach when youre in a chair or in bed. And learn how to use it safely so you dont injure yourself. Using a Cane If you have a stronger side, hold the cane on that side. Get your balance. Move the cane and your weaker leg forward. Support your weight on both the cane and your weaker side. Step with your stronger leg. Start again from step 1. If youre using a folding walker, be sure you know how to lock it open. Check that its locked open before each use. Using a Walker Roll the walker (or lift it, if youre using one without wheels) forward about 12 inches. Step forward with your weaker leg first. Use the walker to help keep your balance. Bring your other foot forward to the center of the walker. Start again from step 1. Helpful Tips Check with your healthcare provider about the right walking aid to use. Ask about a walker with a seat attached. Check the tips of your cane or walker to make sure they have nonskid covers. Move slowly from room to room. Dont craft. Sit down to get dressed. Use a marisa pack or backpack to keep your hands free. Get help for jobs that mean climbing, even on a stepstool. Terrell Patient Education Copyright 2008 - 2010 Terrell except where otherwise noted. Treating Urinary Incontinence in Men (This education is for all patients over 65 regardless of symptoms) You can't always control the release of urine. You may leak urine. Or you may not be able to hold your urine until you can get to a bathroom. This is called urinary incontinence. The problem can be managed. Talk to your doctor about your treatment options. Taking Medications Prescription medications may help you. They may: Help the sphincter to work better. (This is the muscle that closes to keep urine from leaking out of the bladder.) Help stop the bladder from jabari too often to push urine out. Help the bladder muscles contract with more force. Help relax the sphincter muscle and allow urine to flow more freely. Making Changes to Your Routine Certain changes in your daily routine may help. These include: Avoiding caffeine and alcohol. Using timed voiding. This is following a schedule for drinking fluids and urinating. Doing Kegel exercises daily. These exercises involve tightening the muscles in your sphincter and around your bladder to help strengthen them. Your doctor can explain how to do them. Using a Catheter A catheter is a narrow tube that is inserted through the urethra into the bladder. It drains urine.A condom catheter covers the penis. It channels urine into a collection bag. It is worn most of thetime. Intermittent catheterization means inserting a catheter to drain the bladder, then removing it. This is done on a regular schedule. Having Surgery If other options don't work, surgery may be recommended. If surgery is an option, your healthcare provider can discuss it with you and explain its risks and benefits. Healing After Prostate Surgery Surgery on the prostate gland can cause incontinence. Most often, the incontinence is only for a short time. It clears up when healing is complete. Very rarely, prostate surgery can result in permanent incontinence. documented in this encounter Progress Notes * Kelli Mota LPN - 11/29/2023 2:08 PM EDT LAB DRAWN AND SENT TO [facility]. * Javon Scales, - 11/29/2023 1:52 PM EDT SUBJECTIVE: Cedric Sam Jr. is a 88 year old male. Chief Complaint Patient presents with Follow Up HPI: Patient is an 88 year old male with a history of CAD, CABG, right iliac stent graft, endovascular AAA repair, AAA endoleak repair, HTN, Hyperlipidemia, Adenocarcinoma of the Lung Treated with radiation, Recurrent Bladder Cancer, Thrombocytopenia, and Lumbar Disc Disease that is seen for follow up. Chronic low back pain and bilateral hip pain are unchanged. No falls. No chest pain or shortness of breath are present. He is scheduled for EGD to work up dysphagia. He continues to follow with Cardiology, Urology and Oncology. 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 Saline Nasal [place] 0.65 % Nasal Solution (Sturtevant) Administer into nostril 2 Sprays in the [...] needed for Pain, Severe. 90 Tablet 0 Multiple Vitamins-Minerals (MULTIVITAMIN ADULT EXTRA C) [...] performed by Alen Aguilar MD at OR [facility] CYSTOSCOPY 03-05-2010 CYSTOSCOPY/INSERTION OF STENT Right 12/19/2018 CYSTOURETHROSCOPY WITH INSERTION URETERAL STENT performed by Alen Aguilar MD at OR [facility] CYSTOSCOPY/TREAT LGE BLADDER TUMOR N/A 10/07/2018 CYSTOURETHROSCOPY WITH FULGURATION LARGE BLADDER TUMOR performed by Alen Aguilar MD at OR [facility] CYSTOSCOPY/TREAT LGE BLADDER TUMOR N/A 05/22/2021 CYSTOURETHROSCOPY WITH FULGURATION LARGE BLADDER TUMOR performed by Alysa Valente MD at OR [facility] CYSTOURETERO W/BIOPSY Right 12/19/2018 CYSTOURETHROSCOPY URETEROSCOPY WITH BIOPSY AND OR FULGURATION LESION performed by Alen Aguilar MD at OR [facility] CYSTOURETERO W/BIOPSY N/A 02/28/2019 CYSTOURETHROSCOPY URETEROSCOPY WITH BIOPSY AND OR FULGURATION LESION performed by Alen Aguilar MD at OR [facility] CYSTOURETERO W/BIOPSY Bilateral 09/21/2019 CYSTOURETHROSCOPY URETEROSCOPY WITH BIOPSY AND OR FULGURATION LESION performed by Alysa Valente MD at OR [facility] CYSTOURETHROSCOPY W/BIOPSY N/A 05/22/2021 CYSTOURETHROSCOPY WITH BIOPSY performed by Alysa Valente MD at OR [facility] ENDOVASC ABDO REPR W/BI DEVICE N/A 03/29/2017 ENDOVASCULAR REPAIR ABDOMINAL AORTIC ANEURYSM BIF PROS 1 LIMB performed by Lisa Emerson MD at OR [facility] FLUORO PYELOGRAM RETROGRADE Left 02/28/2019 UROGRAHY, RETROGRADE, WITH OR WITHOUT KUB performed by Alen Aguilar MD at OR [facility] FLUORO PYELOGRAM RETROGRADE Bilateral 09/21/2019 UROGRAHY, RETROGRADE, WITH OR WITHOUT KUB performed by Alysa Valente MD at OR [facility] INFORMATION open heart surgery [facility] INFORMATION 07/1999 bladder [facility] danella INFORMATION 03/29/2017 model# HIA46-16/[id number] AFX Endovascular AAA Stent Graft Extension INFORMATION 03/29/2017 model# A25-25/P29-C78T AFX Endovascular AAA Stent Limb Extension INJECT DX/THER SUBSTANCE INTERLAMINAR LUMBAR/SACRAL W IMAGE GUIDE 05/25/2019 INJECTION SPINE LUMBAR OR SACRAL performed by Michel Maribel Gil, DO at OR [facility] INJECT DX/THER SUBSTANCE INTERLAMINAR LUMBAR/SACRAL W IMAGE GUIDE 06/22/2019 INJECTION SPINE LUMBAR OR SACRAL performed by Michel Maribel Cousins, DO at OR [facility] INJECT DX/THER SUBSTANCE INTERLAMINAR LUMBAR/SACRAL W IMAGE GUIDE 02/01/2020 INJECTION SPINE LUMBAR OR SACRAL performed by Michel Gil, DO at OR [facility] IOF CT GUIDED NEEDLE BIOPSY 03/06/2011 CT GUIDED NEEDLE ASPIRATION BIOPSY performed by DUDLEY WARNER at RADIOLOGY [facility] IR ENDOVASCULAR REPAIR ILIAC 04/17/04 right common [...] change, fatigue and unexpected weight change. HENT: Positive for trouble swallowing. Negative for congestion and sore throat. Respiratory: Negative for cough, shortness of breath and wheezing. Cardiovascular: Negative for chest pain, palpitations and leg swelling. Gastrointestinal: Negative for abdominal pain, blood in stool, constipation, diarrhea, nausea and vomiting. Genitourinary: Positive for frequency. Negative for dysuria and hematuria. Musculoskeletal: Positive for back pain and gait problem. Bilateral hip pain Neurological: Positive for dizziness. Negative for syncope and headaches. Psychiatric/Behavioral: Negative for confusion, decreased concentration and sleep disturbance. OBJECTIVE: BP 150/78 (BP Site: Left Arm, BP Position: Sitting, BP Cuff Size: Regular) | Pulse 65 | Temp 37.1 C (98.8 F) (Tympanic) | Resp 16 | Ht 1.619 m (5' 3.75") | Wt 62.5 kg (137 lb 12.8 oz) | SpO2 98% | BMI 23.84 kg/m | BSA 1.68 m Physical Exam [...] No edema. Neurological: Mental Status: He is alert. Mental status is at baseline. Motor: No weakness. Gait: Gait abnormal. Psychiatric: Mood and Affect: Mood normal. Behavior: Behavior normal. Thought Content: Thought content normal. PLAN AND ASSESSMENT: Atherosclerosis of [place] coronary artery of [place] heart without angina pectoris (Primary) Continue Atenolol and ASA Aortocoronary bypass status RORY inhibitor intolerance Hypertensive kidney disease with stage 3a chronic kidney disease (HCC) - COMPREHENSIVE METABOLIC PANEL; Future; Expected date: 11/29/2023 - CBC WITH WBC DIFFERENTIAL; Future; Expected date: 11/29/2023 - TSH WITH FREE T4 IF INDICATED; Future; Expected date: 11/29/2023 COntinue Amlodipine and Atenolol Thrombocytopenia (HCC) 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) DYSLIPIDEMIA, GOAL LDL BELOW 100 Continue Pravastatin Benign prostatic hyperplasia with urinary retention Continue to follow with Urology H/O endovascular stent graft for abdominal aortic aneurysm US per JESSICA History of lung cancer Follow CT chest per Dr. Lazar Risk and functional assessment History of bladder cancer Continue to follwo with Urology Follow Up: Return in about 1 month (around 12/29/2023), or if symptoms worsen or fail to improve. Javon Scales DO 1:52 PM 11/29/2023 * Janice Robles LPN - 11/29/2023 12:55 PM EDT Urinary Incontinence Plan of Care Documentation: (This education is for all patients over 65 regardless of symptoms) Current medications reconciled. Patient encouraged to: Practice kegal exercises Provide education materials Use the restroom every 2 hours throughout the day Limit caffeine, alcohol, spicy foods and acidic foods Keep a bladder diary Limit fluid intake 3-4 hours before bed Lose weight Prevent constipation Take fluid pills at a time when you can get to the bathroom quickly Control sugar better if diabetic Limit fluid intake to 60 oz. per day Wear support stockings (TEDs)if you have edema Janice Robles LPN 11/29/2023 documented in this encounter Nursing Notes * Janice Robles LPN - 11/29/2023 12:55 PM EDT Patient here for routine follow up. No concerns voiced. Patient has a skin tear on back of left hand. documented in this encounter Plan of Treatment Upcoming Encounters Date Type Department Care Team (Latest Contact Info) Description 12/06/2023 9:15 AM EDT Office Visit Dermatology [facility] [place] [address] [place] [address] David Whiting MD [address] [place] [address] 12/31/2023 3:40 PM EDT Office Visit Family Practice [address] [place] [address] [address] [place] [address] Javon Scales DO [address] [facility], [place] [address] 01/05/2024 10:45 AM EDT [facility] [address] [facility] [place] [address] Martir Lazar MD [address] [facility] [place] [address] 01/13/2024 10:00 AM EDT Hospital Encounter [facility]O [facility], Endoscopy Room [facility] [address] [place] [phone] Kvng Dupont MD [address] [place] [address] 01/13/2024 10:00 AM EDT - 01/13/2024 10:30 AM EDT Surgery ENDO [facility], Endoscopy Room [facility] [address] [place] [phone] Kvng Dupont MD [address] [place] [address] ESOPHAGOGASTRODUODENOSCOPY (EGD), FLEXIBLE, TRANSORAL, DIAGNOSTIC 01/24/2024 2:00 PM EDT Procedure Only Urology, [place] [address] [place] [facility] [place] [address] Jose Lisa MD [address] [place] [address] 05/03/2024 1:45 PM EST Office Visit Urology, [place] [address] [place] [facility] [place] [address] Baudilio Rosas MD [address] [place], [place] [id number] 09/06/2024 2:30 PM EDT Office Visit Cardiology, [facility] [address] [place] [address] Sridhar Fay MD [address] [place] [address] 09/26/2024 11:00 AM EDT Nurse Only Ancillary [address] [facility] [address] [place] [address] College, Nurse Annual Wellness Visit [address] [place] [address] Pending Results Name Type Priority Associated Diagnoses Date /Time COMPREHENSIVE METABOLIC PANEL Lab Routine Hypertensive kidney disease with stage 3a chronic kidney disease (HCC) 11/29/2023 2:09 PM EDT CBC WITH WBC DIFFERENTIAL Lab Routine Hypertensive kidney disease with stage 3a chronic kidney disease (HCC) 11/29/2023 2:09 PM EDT TSH WITH FREE T4 IF INDICATED Lab Routine Hypertensive kidney disease with stage 3a chronic kidney disease (HCC) 11/29/2023 2:09 PM EDT CBC Lab Routine Hypertensive kidney disease with stage 3a chronic kidney disease (HCC) 11/29/2023 2:09 PM EDT DIFFERENTIAL, AUTOMATED Lab Routine Hypertensive kidney disease with stage 3a chronic kidney disease (HCC) 11/29/2023 2:09 PM EDT Scheduled Orders Name Type Priority Associated Diagnoses Orde r Schedule COMPREHENSIVE METABOLIC PANEL Lab Routine Hypertensive kidney disease with stage 3a chronic kidney disease (HCC) Expected: 11/29/2023 (Approximate), Expires: 11/28/2024 CBC WITH WBC DIFFERENTIAL Lab Routine Hypertensive kidney disease with stage 3a chronic kidney disease (HCC) Expected: 11/29/2023 (Approximate), Expires: 11/28/2024 TSH WITH FREE T4 IF INDICATED Lab Routine Hypertensive kidney disease with stage 3a chronic kidney disease (HCC) Expected: 11/29/2023 (Approximate), Expires: 11/28/2024 Scheduled Procedures Name Priority Associated Diagnoses Date/Ti me ESOPHAGOGASTRODUODENOSCOPY ( EGD), FLEXIBLE, TRANSORAL, DIAGNOSTIC Dysphagia 01/13/2024 10:00 AM EDT Health Maintenance Due Date Last Done Comments COVID-19 Vaccine ( season) 2023 05/19/2022, 04/24/2021, 09/06/2020, Additional history exists Postponed from 02/05/2023 (Patient Declined After Education) Albumin/Creatinine Ratio 04/26/2024 023, 07/13/2022, 07/08/2021 CKD HGB USE SMARTSET [id number] 07/27/202407/27, 07/27/2023, 04/26/2023, Additional history exists CKD PHOS USE SMARTSET [id number] 07/27/202407/09, 02/25/2022, 01/29/2021 Depression Screening 09/20/2024 09/21/2023 DTaP,Tdap,and Td Vaccines (3 - Td or Tdap) 04/26/2033 04/26/2023, 02/19/2013, 08/11/2007 Pneumococcal Vaccine: 65+ Years Completed 10/16/2014, 05/13/2006, 06/07/1997 Zoster Vaccines Completed 08/16/2019, 05/07, 05/23/2007 Influenza Vaccine (FLU shot) Completed 03/11/2023, 02/23/2022, 02/19/2021, Additional history exists GARDASIL-HPV IMMUNIZATION SERIES Aged Out No longer eligible based on patient's age to complete this topic Hepatitis B Aged Out No longer eligi ble based on patient's age to complete this topic MENINGOCOCCAL (MENACTRA/MENVEO) Aged Out No longer eligible based on patient's age to complete this topic documented as of this encounter Medical Devices Implanted Type [employer] Device Identifier Shelf Expiration Date Model / Serial / Lot Bifurcated Endograft Implanted:Qty: 1 on 03/29/2017 by Lisa Emerson MD at OR [facility] N/A: Aorta ENDOLOGIX 01/13/2018 [id number] / [id number] / Proximal Endograft Implanted:Qty: 1 on 03/29/2017 by Lisa Emerson MD at OR [facility] N/A: Aorta ENDOLOGIX 01/16/2020 [id number] / [id number] / documented as of this encounter Visit Diagnoses Diagnosis Atherosclerosis of [place] coronary artery of [place] heart without angina pectoris- Primary 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 Other drug allergy Hypertensive kidney disease with stage 3a chronic kidney disease (HCC) Thrombocytopenia (HCC) Thrombocytopenia, unspecified 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) Polyneuropathy in other diseases classified elsewhere DYSLIPIDEMIA, GOAL LDL BELOW 100 Other and unspecified hyperlipidemia Benign prostatic hyperplasia with urinary retention H/O endovascular stent graft for abdominal aortic aneurysm Blood vessel replaced by other means History of lung cancer Personal history of malignant neoplasm of bronchus and lung Risk and functional assessment Screening for unspecified condition History of bladder cancer Personal history of malignant neoplasm of bladder Dysphagia Dysphagia, unspecified documented in this encounter Advance Directives * Full Code (Latest Code Status on File) Date Activated Date Inactivated Comments 03/29/2017 2:46 PM 03/31/2017 3:33 PM This order reflects the patients wishes and were consensually agreed upon. Care Teams Photo Checker Relationship Specialty Start Date End Date Javon Scales DO [address] [place] [address] PCP - General Internal Medicine 11/19/23 documented as of this encounter
--- OUTSIDE RECORDS SUMMARY | 2024-05-15 19:06 | External Medical Summary | Summary of Care ---
Author Name Unknown Organization [facility] Address [address] [place] [address] Phone [phone] Care Team Providers Care Steamtable Worker Name Role Phone Javon Scales DO Primary Care Provider [phone] Reason for Visit * Reason Onset Date Comments Test Results 12/10/202312/09 Encounter Details Date Type Department Care Team (Late st Contact Info) Description 12/10/2023 Telephone Family Practice 65 [facility] [place] [address] [place] [phone] Javon Scales DO [address] [place] [address] Test Results (12/09) Allergies Active Allergy Reactions Criticality Noted Date Comments Ciprofloxacin 09/27/2018 Stomach upset Finasteride Other (Please comment) 09/21/2023 Enlarged breast tissue Tamsulosin Hcl 01/14/2010 collapse Levofloxacin Other (Please comment) 03/05/2017 Hx of achilles tendon tear Atorvastatin Abdominal pain 12/23/2015 Lisinopril 03/11/2007 Caused pt to have blurred vision and become very flushed Simvastatin Abdominal pain 12/23/2015 documented as of this encounter (statuses as of 12/13/2023) Medications Medication Sig Dispensed Refills Start Date [...] 1 Capsule daily . Active Saline Nasal [place] 0.65 % Nasal Solution ([place])Indications: Epistaxis Administer into nostril 2 Sprays in the morning AND 2 Sprays before bedtime. 30 mL 12 07/29/2021 Active Nitroglycerin 0.4 MG Sublingual Tablet Sublingual (Nitrostat)Indicati ons:Atherosclerosis of seneca coronary artery of seneca heart without angina pectoris one tab under [...] (Tenormin)Indicatio ns:HTN, goal below 140/90,Atherosclero sis of [place] coronary artery of [place] heart without angina pectoris Take 1 tablet [...] as of this encounter (statuses as of 12/13/2023) Active Problems Problem Noted Date Diagnosed Date [...] CORONARY ATHEROSCLEROSIS OF UNSPECIFIED TYPE OF VESSEL, [employer] History of bladder cancer documented as of this encounter (statuses as of 12/13/2023) Resolved Problems Problem Noted Date Diagnosed Date [...] stent and embolization 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/10 [facility] 08/09:1 month s/p reintervention for [...] as of this encounter (statuses as of 12/13/2023) Immunizations Name Administration Dates Next Due COVID-19 mRNA, LNP-s, No Pre serve, 2-Dose Series (mobileo) 04/24/2021,09/06/2020,08/09/2020 Covid-19, Mrna, Lnp-s, Pf, B ivalent, 30 Mcg, IM, 12 yrs and above (mobileo) 05/19/2022 H1N1 2009 Influenza, IM 05/28/2009 Influenza, [...] Telephone Encounter - Kelli Mota LPN - 12/13/2023 2:43 PM EDT Patient is aware and will comply. Thank you * Telephone Encounter - Nakul Sravanthi, LPN - 12/10/2023 3:46 PM EDT Called, left message for patient to return call. Thank you * Telephone Encounter - Nakul Sravanthi, LPN - 12/10/2023 3:45 PM EDT ----- Message from Javon Scales DO sent at 12/09/2023 9:55 AM EDT ----- Albumin level is normal Protein is slightly low Will repeat labs at next visit. Continue current medications. documented in this encounter Plan of Treatment Upcoming Encounters Date Type Department Care Team (Latest Contact Info) Description 01/05/2024 10:45 AM EDT Office Visit Hematology/Oncol colby [facility] 200 [facility] [place] [address] Martir Lazar MD 200 [place] [address] 01/12/2024 3:40 PM EDT Office Visit Family Practice [address] [place] [address] 293 [place] [address] Javon Scales DO 293 [facility] [place] [address] 01/13/2024 10:00 AM EDT Hospital Encounter ENDO [facility], Endoscopy Room [facility] [address] [place] [phone] Kvng Dupont MD 132 [facility] [place] [address] 01/13/2024 10:00 AM EDT - 01/13/2024 10:30 AM EDT Surgery ENDO [facility], Endoscopy Room [facility] [address] [place] [phone] Kvng Dupont MD [address] [place] [address] ESOPHAGOGASTRODUODENOSCOPY (EGD), FLEXIBLE, TRANSORAL, DIAGNOSTIC 01/24/2024 2:00 PM EDT Procedure Only Urology, [place] [address] [place] [address] Jose Lisa MD [address] [place] [address] 05/03/2024 1:45 PM EST Office Visit Urology, [place] [address] [place], [place] [phone] Baudilio Rosas MD [address] [place], [place] [phone] 09/06/2024 2:30 PM EDT Office Visit Cardiology, [facility] [address] [facility] [place] [address] Sridhar Fay MD 132 [facility] [place] [address] 09/26/2024 11:00 AM EDT Nurse Only Ancillary 65 [facility] 293 [place] [address] College, Nurse Annual Wellness Visit [address] [place] [address] Scheduled Procedures Name Priority Associated Diagnoses Date/Ti me ESOPHAGOGASTRODUODENOSCOPY ( EGD), FLEXIBLE, TRANSORAL, DIAGNOSTIC Dysphagia 01/13/2024 10:00 AM EDT Health Maintenance Due Date Last Done Comments COVID-19 Vaccine ( season) 2023 05/19/2022, 04/24/2021, 09/06/2020, Additional history exists Influenza Vaccine (FLU shot) (#1) 2024 03/11/2023, 02/23/2022, 02/19/2021, Additional history exists Albumin/Creatinine Ratio 04/26/2024 023, 07/13/2022, 07/08/2021 CKD PHOS USE SMARTSET 90554 07/27/202407/09, 02/25/2022, 01/29/2021 Depression Screening 09/20/2024 09/21/2023 CKD HGB USE SMARTSET 14575 11/28/202411/28, 11/29/2023, 07/27/2023, Additional history exists DTaP,Tdap,and [...] this encounter Medical Devices Implanted Type Area Customer Support Assistant Device Identifier Shelf Expiration Date Model / Serial / Lot Bifurcated Endograft Implanted:Qty: 1 on 03/29/2017 by Lisa Emerson MD at [place] [facility] N/A: Aorta ENDOLOGIX 01/13/2018 [id number] [id number] / [id number] / Proximal Endograft Implanted:Qty: 1 on 03/29/2017 by Lisa Emerson MD at [place] [facility] N/A: Aorta ENDOLOGIX 01/16/2020 A25-25/C75- [id number] / [id number] / documented as of this encounter Advance Directives * Full Code (Latest Code Status on File) Date Activated Date Inactivated Comments 03/29/2017 2:46 PM 03/31/2017 3:33 PM This order reflects the patients wishes and were consensually agreed upon. Care Teams Steamtable Worker Relationship Specialty Start Date End Date Javon Scales DO [address] [place] [address] PCP - General Internal Medicine 11/19/23 documented as of this encounter
--- OUTSIDE RECORDS SUMMARY | 2024-05-15 19:06 | External Medical Summary ---
Author Name Unknown Address Unknown Organization K01:[facility] - [address] [place] [address] Laboratory Report Ordering Provider Test Date Status АННА KAMARA 12/08/2023 11:21:50 Final Observation Date Value Abnormality Reference (Units ) Status Protein 12/08/2023 11:21:50 5.5 Below low normal 6.0 -8.3 (g/dL) Final Performing Location [facility] - [address] [place] [address]
--- OUTSIDE RECORDS SUMMARY | 2024-05-15 19:06 | External Medical Summary | Summary of Care ---
Author Name Unknown Organization [facility] Address [address] [place] [address] Phone [phone] Care Team Providers Care Founding Partner Name Role Phone Javon Scales DO Primary Care Provider [phone] Reason for Visit * Reason Onset Date Comments Test Results 11/30/202311/29, Encounter Details Date Type Department Care Team (Late st Contact Info) Description 11/30/2023 Telephone Family Practice 65 [facility] [place] [address] [place] [address] Javon Scales DO [address] [place] [address] Test Results (11/29, ) Allergies Active Allergy Reactions Criticality Noted Date Comments Ciprofloxacin 09/27/2018 Stomach upset Finasteride Other (Please comment) 09/21/2023 Enlarged breast tissue Tamsulosin Hcl 01/14/2010 collapse Levofloxacin Other (Please comment) 03/05/2017 Hx of achilles tendon tear Atorvastatin Abdominal pain 12/23/2015 Lisinopril 03/11/2007 Caused pt to have blurred vision and become very flushed Simvastatin Abdominal pain 12/23/2015 documented as of this encounter (statuses as of 12/02/2023) Medications Medication Sig Dispensed Refills Start Date [...] 1 Capsule daily . Active Saline Nasal [place] 0.65 % Nasal Solution ([place])Indications: Epistaxis Administer into nostril 2 Sprays in [...] as of this encounter (statuses as of 12/02/2023) Active Problems Problem Noted Date Diagnosed Date [...] as of this encounter (statuses as of 12/02/2023) Resolved Problems Problem Noted Date Diagnosed Date [...] stent and embolization 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/10 [facility] 08/09:1 month s/p [...] as of this encounter (statuses as of 12/02/2023) Immunizations Name Administration Dates Next Due COVID-19 mRNA, LNP-s, No Pre serve, 2-Dose Series ([employer]) 04/24/2021,09/06/2020,08/09/2020 Covid-19, Mrna, Lnp-s, Pf, B ivalent, 30 Mcg, IM, 12 yrs and above ([employer]) 05/19/2022 H1N1 2009 Influenza, IM 05/28/2009 [...] Telephone Encounter - Kelli Mota LPN - 12/02/2023 12:52 PM EDT Patient is aware and will comply. Thank you * Telephone Encounter - Javon Scales DO - 12/01/2023 7:48 PM EDT Total protein is low. Protein is made by the liver. Can repeat Protein and Albumin in 1 week. If no improvement will check US liver. * Result Encounter Note - Janice Robles LPN - 12/01/2023 10:07 AM EDT MyG sent to patient. * Telephone Encounter - Kelli Mota LPN - 11/30/2023 1:07 PM EDT Labs will be added of available blood. Will do liver us as directed. Son has [employer] syndrome. Please schedule Thank you * Telephone Encounter - Kelli Mota LPN - 11/30/2023 1:05 PM EDT ----- Message from Javon Scales DO sent at 11/30/2023 8:05 AM EDT ----- Mild anemia is present. Platelet count is stable Check iron screen, Ferritin, B12, Folate, Retic, and LDH. Check US liver since bilirubin is up. documented in this encounter Plan of Treatment Upcoming Encounters Date Type Department Care Team (Latest Contact Info) Description 12/06/2023 9:15 AM EDT Office Visit Dermatology [place] [address] [place] [address] David Whiting MD [address] [place] [address] 01/05/2024 10:45 AM EDT Office Visit Hematology/Oncol ogy [facility] 200 [place] [phone] Martir Lazar MD 200 [place] [address] 01/12/2024 3:40 PM EDT Office Visit Family Practice [address] [place] [address], [place] 293 [place] [address] Javon Scales, 293 [place] [address] 01/13/2024 10:00 AM EDT Hospital Encounter ENDO [facility], Endoscopy Room [facility] [address] [facility] [place] [phone] Kvng Dupont MD [address] [place] [address] 01/13/2024 10:00 AM EDT - 01/13/2024 10:30 AM EDT Surgery ENDO [facility], Endoscopy Room [facility] [address] [facility] [place] [phone] Kvng Dupont MD 132 [place] [address] ESOPHAGOGASTRODUODENOSCOPY (EGD), FLEXIBLE, TRANSORAL, DIAGNOSTIC 01/24/2024 2:00 PM EDT Procedure Only Urology, [place] [address] [place] [address] Jose Lisa MD [address] [place], [place] [phone] 05/03/2024 1:45 PM EST Office Visit Urology, [place] [address] [place], [place] [phone] Baudilio Rosas MD [address] [place], [place] [phone] 09/06/2024 2:30 PM EDT Office Visit Cardiology, [facility] 132 [facility] [place] [address] Sridhar Fay MD [address] [place] [address] 09/26/2024 11:00 AM EDT Nurse Only Ancillary 65 [facility] 293 [place] [address] College, Nurse Annual Wellness Visit 65 [facility] [address] [facility], [place] [address] Scheduled Orders Name Type Priority Associated Diagnoses Orde r Schedule PROTEIN Lab Routine Anemia Abnormal bilirubin test Expected: 12/09/2023, Expires: 12/01/2024 ALBUMIN Lab Routine Anemia Abnormal bilirubin test Expected: 12/09/2023, Expires: 12/01/2024 Scheduled Procedures Name Priority Associated Diagnoses Date/Ti me ESOPHAGOGASTRODUODENOSCOPY ( EGD), FLEXIBLE, TRANSORAL, DIAGNOSTIC Dysphagia 01/13/2024 10:00 AM EDT Health Maintenance Due Date Last Done Comments COVID-19 Vaccine ( season) 2023 05/19/2022, 04/24/2021, 09/06/2020, Additional history exists Albumin/Creatinine Ratio 04/26/2024 023, 07/13/2022, 07/08/2021 CKD PHOS USE SMARTSET 44986 07/27/202407/09, 02/25/2022, 01/29/2021 Depression Screening 09/20/2024 09/21/2023 CKD HGB USE SMARTSET 26433 11/28/202411/28, 11/29/2023, 07/27/2023, Additional history exists DTaP,Tdap,and Td Vaccines (3 - Td or Tdap) 04/26/2033 04/26/2023, 02/19/2013, 08/11/2007 Pneumococcal Vaccine: 65+ Years Completed 10/16/2014, 05/13/2006, 06/07/1997 Zoster Vaccines Completed 08/16/2019, 05/07, 05/23/2007 Influenza Vaccine (FLU shot) Completed 10/2022, 02/23/2022, 02/19/2021, Additional history exists GARDASIL-HPV IMMUNIZATION SERIES Aged Out No longer eligible based on patient's age to complete this topic Hepatitis B Aged Out No longer eligi ble based on patient's age to complete this topic MENINGOCOCCAL (MENACTRA/MENVEO) Aged Out No longer eligible based on patient's age to complete this topic documented as of this encounter Medical Devices Implanted Type Area Blacksmith Assistant Device Identifier Shelf Expiration Date Model / Serial / Lot Bifurcated Endograft Implanted:Qty: 1 on 03/29/2017 by Lisa Emerson MD at [facility] N/A: Aorta ENDOLOGIX 01/13/2018 [id number] 6-40 / [id number] / Proximal Endograft Implanted:Qty: 1 on 03/29/2017 by Lisa Emerson MD at [facility] N/A: Aorta ENDOLOGIX 01/16/2020 A25-25/C75- [id number] / [id number] / documented as of this encounter Procedures Procedure Name Priority Date/Time Associated Diagnosis Comments RETICULOCYTE PANEL Routine 11/29/2023 2: 09 PM EDT Anemia FOLIC ACID Routine 11/29/2023 2:09 PM EDT Anemia IRON SCREEN, INCLUDING TIBC Routine 11/29/2023 2:09 PM EDT Anemia LD Routine 11/29/2023 2:09 PM EDT Anemia FERRITIN Routine 11/29/2023 2:09 PM EDT Anemia VITAMIN B12 Routine 11/29/2023 2:09 PM EDT Anemia documented in this encounter Results * LD (11/29/2023 2:09 PM EDT) LD 148 <=250 U/L 11/30/2023 2:3 5 PM EDT [facility] Blood Venous blood specimen / Unknown Venipuncture / Unknown 11/29/2023 2:09 PM EDT 11/29/2023 2:09 PM EDT Javon Scales DO LAB BLOOD ORDERABLES Performing Organization Address [facility] Co de Phone Number LAB[facility]ORY [facility] [address] [place] [address] * (ABNORMAL) RETICULOCYTE PANEL (11/29/2023 2:09 PM EDT) Reticulocyte Percent 3.98(H) 0.80 - 1.90 % 11/30/2023 1:29 PM EDT [facility] Absolute Reticulocyte 163.2(H) 31.3 - 100.1 K/uL 11/30/2023 1:29 PM EDT [facility] Immature Reticuloctye Fraction 9.7 2.5 - 20.6 % 11/30/2023 1:29 PM EDT [facility] Reticulocyte Hemoglobin 35.1 29.7 - 37.4 pg 11/30/2023 1:29 PM EDT [facility] Blood Venous blood specimen / Unknown Venipuncture / Unknown 11/29/2023 2:09 PM EDT 11/29/2023 2:09 PM EDT Javon Scales DO LAB BLOOD ORDERABLES Performing Organization Address [facility] de Phone Number LABORATORY [facility] [address] [place] [address] * FOLIC ACID (11/29/2023 2:09 PM EDT) Folic Acid 9.5 >4.5 ng/mL 11/30/2023 3:18 PM EDT [facility] Blood Venous blood specimen / Unknown Venipuncture / Unknown 11/29/2023 2:09 PM EDT 11/29/2023 2:09 PM EDT Javon Scales DO LAB BLOOD ORDERABLES Performing Organization Address City/[facility]/ZIP Co de Phone Number [facility] [address] [place] [address] * (ABNORMAL) VITAMIN B12 (11/29/2023 2:09 PM EDT) [facility] Vitamin B12 1,522(H) 232 - 1,245 pg/mL 11/30/2023 3:18 PM EDT [facility] Blood Venous blood specimen / Unknown Venipuncture / Unknown 11/29/2023 2:09 PM EDT 11/29/2023 2:09 PM EDT Javon Scales DO LAB BLOOD ORDERABLES LABORATORY [address] [address] * FERRITIN (11/29/2023 2:09 PM EDT) [facility] Ferritin 70 30 - 400 ng/mL 11/30/2023 3:18 PM EDT [facility] Blood Venous blood specimen / Unknown Venipuncture / Unknown 11/29/2023 2:09 PM EDT 11/29/2023 2:09 PM EDT Javon Scales DO LAB BLOOD ORDERABLES LABORATORY [address] [address] * (ABNORMAL) IRON SCREEN, INCLUDING TIBC (11/29/2023 2:09 PM EDT) [facility] Iron 65 45 - 176 ug/dL 11/30/2023 2:35 PM EDT [facility] Iron Binding Capacity 242(L) 250 - 425 ug/dL 11/30/2023 2:35 PM EDT [facility] Transferrin Saturation Percent 27 15 - 55 % 11/30/2023 2:35 PM EDT [facility] Blood Venous blood specimen / Unknown Venipuncture / Unknown 11/29/2023 2:09 PM EDT 11/29/2023 2:09 PM EDT Javon Scales DO LAB BLOOD ORDERABLES LAB[facility] [address] [place] [address] documented in this encounter Visit Diagnoses Diagnosis Anemia- Primary Anemia, unspecified Abnormal bilirubin test Disorders of bilirubin excretion Dysphagia Dysphagia, unspecified documented in this encounter Advance Directives * Full Code (Latest Code Status on File) Date Activated Date Inactivated Comments 03/29/2017 2:46 PM 03/31/2017 3:33 PM This order reflects the patients wishes and were consensually agreed upon. Care Teams Founding Partner Relationship Specialty Start Date End Date Javon Scales DO [address] [place] [address] PCP - General Internal Medicine 11/19/23 documented as of this encounter
--- OUTSIDE RECORDS SUMMARY | 2024-05-15 19:06 | External Medical Summary ---
Author Name Unknown Address Unknown Organization K01:[facility] - [address] [place] [address] Laboratory Report Ordering Provider Test Date Status АННА KAMARA 11/29/2023 14:09:05 Final Observation Date Value Abnormality Reference (Units ) Status Vitamin B12 11/29/2023 14:09:05 1522 Above high normal 232-1245 (pg/mL) Final Performing Location [facility] - [address] [place] [address]
--- OUTSIDE RECORDS SUMMARY | 2024-05-15 19:06 | External Medical Summary | Summary of Care ---
Author Name Unknown Organization [facility] Address [address] [place] [address] Phone [phone] Care Team Providers Care Mailing Machine Operator Name Role Phone MitchclaraJavon DO Primary Care Provider [phone] Reason for Visit * Reason Comments Medication Management Encounter Details Date Type Department Care Team (Late st Contact Info) Description 11/29/2023 1:00 PM EDT Telemedicine Family Practice 65 [facility] [address] [place] [address] Harvey, Pharmacist [address] [address] Medication management* Allergies Active Allergy Reactions Criticality Noted Date [...] 1 Capsule daily . Active Saline Nasal [place] 0.65 % Nasal Solution (Bivalve)Indications: Epistaxis Administer into nostril 2 Sprays in the morning AND 2 Sprays before bedtime. 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 is an 88 year old being seen for medication reconciliation. Med Rec Reason: Annual Prescription insurance information: [employer]ANDA Beavers Do you have any other prescription coverage: Yes, PACE Preferred pharmacy: [facility] [x] Problem list reviewed [x] Allergies reviewed and updated if needed [x] Drug interaction check completed [x] HEDIS list addressed Immunizations: eligible for RSV and covid booster Labs/Vitals/Risk Scores: The ASCVD Risk score (Christos HENRIQUEZ, et al., 2019) failed to calculate for the following reasons: The 2019 ASCVD risk score is only valid for ages 40 to 79 The patient has a prior DE or stroke diagnosis BP Readings from Last 3 Encounters: 11/29/23 150/78 10/21/23 183/83 09/21/23 158/78 No results for input(s): "HGBA1C" in the last 29035 hours. Recent Labs Units 04/26/23 1403 10/12/22 1417 05/14/22 0854 ESTIMATED GLOMERULAR FILTRATION RATE - [facility] mL/min 81 76 83 Creatinine clearance cannot be calculated (Patient's most recent lab result is older than the maximum 180 days allowed.) Assessment & Plan: Medication discrepancies identified: Per adherence tracker, pt not filling pravastatin. Last dispensed on 02/2023. Pt reports taking 2-3x weekly. Dose/frequency of medications appropriate for current renal function? yes Other medication problems identified: Most recent LDL on 04/2023 not at goal with hx of ASCVD. LDL goal <70. Currently taking pravastatin 20 mg 2-3x weekly. Does have hx of statin intolerance to lipitor and simvastatin due to abdominal pain. Could benefit from optimization of HLD regimen if LDL remains above goal upon repeat. Discussed with PCP. Patient education provided: none Referral pended for follow up management of: N/A Summary- Changes & Recommendations: Medication reconciliation completed. Ariadne Cantu linda Clinical Pharmacist - Full Stack Developer Medication Therapy Management Clinic 11/29/2023, 1:27 PM documented in this encounter Plan of Treatment Upcoming Encounters Date Type Department Care Team (Latest Contact Info) Description 12/06/2023 9:15 AM EDT Office Visit Dermatology [facility] [address] [facility] [place] [address] David Whiting MD 200 [place] [address] 12/31/2023 3:40 PM EDT Office Visit Family Practice [address] [place] [address] 293 [place] [address] Javon Scales DO 293 [place] [address] 01/05/2024 10:45 AM EDT Office Visit Hematology/Oncol ogy [facility] [address] [facility] [place] [phone] Martir Lazar MD 200 [place] [address] 01/13/2024 10:00 AM EDT Hospital Encounter ENDO OSSC, Endoscopy Room [facility] [address] [place] [phone] Kvng Dupont MD [address] [place] [address] 01/13/2024 10:00 AM EDT - 01/13/2024 10:30 AM EDT Surgery ENDO OSSC, Endoscopy Room [facility] [address] [place] [phone] Kvng Dupont MD [address] [place] [address] ESOPHAGOGASTRODUODENOSCOPY (EGD), FLEXIBLE, TRANSORAL, DIAGNOSTIC 01/24/2024 2:00 PM EDT Procedure Only Urology, [facility] [address] [place] [address] Jose Lisa MD [address] [place] [address] 05/03/2024 1:45 PM EST Office Visit Urology, [facility] [address] [place] [address] Baudilio Rosas MD [address] [place], [place] [phone] 09/06/2024 2:30 PM EDT Office Visit Cardiology, [facility] 132 [place] [address] Sridhar Fay MD [address] [place] [address] 09/26/2024 11:00 AM EDT Nurse Only Ancillary 65 [facility] 293 [place] [address] College, Nurse Annual Wellness Visit [address] [address] Scheduled Procedures Name Priority Associated Diagnoses Date/Ti me ESOPHAGOGASTRODUODENOSCOPY ( EGD), FLEXIBLE, TRANSORAL, DIAGNOSTIC Dysphagia 01/13/2024 10:00 AM EDT Health Maintenance Due Date Last Done Comments COVID-19 Vaccine ( season) 2023 05/19/2022, 04/24/2021, 09/06/2020, Additional history exists Postponed from 02/05/2023 (Patient Declined After Education) Albumin/Creatinine Ratio 04/26/2024 023, 07/13/2022, 07/08/2021 CKD HGB USE SMARTSET 40179 07/27/202407/27, 07/27/2023, 04/26/2023, Additional history exists CKD PHOS USE SMARTSET 53515 07/27/2024 02/2 , 02/25/2022, 01/29/2021 Depression Screening 09/20/2024 09/21/2023 DTaP,Tdap,and [...] this encounter Medical Devices Implanted Type Area Plumber Assistant Device Identifier Shelf Expiration Date Model / Serial / Lot Bifurcated Endograft Implanted:Qty: 1 on 03/29/2017 by Lisa Emerson MD at [place] [facility]/A: Aorta ENDOLOGIX 01/13/2018 [id number] / [id number] / Proximal Endograft Implanted:Qty: 1 on 03/29/2017 by Lisa Emerson MD at [place] [facility] [place] N/A: Aorta ENDOLOGIX 01/16/2020 [id number] / [id number] / documented as of this encounter Visit Diagnoses Diagnosis Medication management- Primary Encounter for long-term (current) use of other medications Dysphagia Dysphagia, unspecified documented in this encounter Advance Directives * Full Code (Latest Code Status on File) Date Activated Date Inactivated Comments 03/29/2017 2:46 PM 03/31/2017 3:33 PM This order reflects the patients wishes and were consensually agreed upon. Care Teams Mailing Machine Operator Relationship Specialty Start Date End Date Javon Scales DO [address] [place] [address] PCP - General Internal Medicine 11/19/23 documented as of this encounter
--- OUTSIDE RECORDS SUMMARY | 2024-05-15 19:06 | External Medical Summary ---
Author Name Unknown Address Unknown Organization [id number]:[facility] [place] [address] [place] [address] Laboratory Report Ordering Provider Test Date Status АННА KAMARA 11/29/2023 14:09:05 Final Observation Date Value Abnormality Reference (Units ) Status Folic Acid 11/29/2023 14:09:05 9.5 >4.5 (ng/ mL) Final Performing Location LABORATORY [facility] - [address] [place] [address]
--- OUTSIDE RECORDS SUMMARY | 2024-05-15 19:06 | External Medical Summary ---
Author Name Unknown Address Unknown Organization [id number]:LAB[facility]ATORY [facility] [place] - [address] [facility] [address] Laboratory Report Ordering Provider Test Date Status АННА KAMARA 11/29/2023 14:09:05 Final Observation Date Value Abnormality Reference (Units ) Status SYNC LEUKOCYTES IN BLOOD BY AUTOMATED COUNT 11/29/2023 14:09:05 6.83 4.00-10.80 (K/uL) Final Segs 11/29/2023 14:09:05 44.2 40.0-75.0 (%) Final Lymphs % 11/29/2023 14:09:05 30.2 18.0-42.0 (%) Final Monos 11/29/2023 14:09:05 24.3 Above high normal 1.0-11.0 (%) Final Eosinophils 11/29/2023 14:09:05 0.3 0.0-6.0 (%) Final Basos 11/29/2023 14:09:05 0.1 0.0-2.0 (%) Final Immature Granulocyte, Percent 11/29/2023 14:09:05 0.9 0.0-2.0 (%) Final Absolute Segs 11/29/2023 14:09:05 3.02 1.80-7.70 (K/uL) Final Lymphs, absolute 11/29/2023 14:09:05 2.06 1.00-4.80 (K/ul) Final Monos, Abs 11/29/2023 14:09:05 1.66 Above high normal 0.00-1.10 (K/uL) Final Eos, Abs 11/29/2023 14:09:05 0.02 0.00-0.70 (K/uL) Final Basos, Abs 11/29/2023 14:09:05 0.01 0.00-0.20 (K/uL) Final Immature Granulocytes, Number 11/29/2023 14:09:05 0.06 0.00-0.20 (K/uL) Final Performing Location LABORATORY [facility] - [facility] [place] [address]
--- OUTSIDE RECORDS SUMMARY | 2024-05-15 19:06 | External Medical Summary ---
Author Name Unknown Address Unknown Organization [id number]:LABORATORY [facility] [place] - [address] [place] [address] Laboratory Report Ordering Provider Test Date Status АННА KAMARA 11/29/2023 14:09:05 Final Observation Date Value Abnormality Reference (Units ) Status Iron 11/29/2023 14:09:05 65 45-176 (ug/dL) Final Iron-binding capacity 11/29/2023 14:09:05 242 Below low normal 250-425 (ug/dL) Final Transferrin Sat % 11/29/2023 14:09:05 27 15-55 (%) Final Performing Location LABORATORY C - [address] [place] [address]
--- OUTSIDE RECORDS SUMMARY | 2024-05-15 19:07 | External Medical Summary ---
Author Name Unknown Address Unknown Organization [id number][place] [place] [address] [facility] [address] [address] [place] [address] Laboratory Report Ordering Provider Test Date Status АННА KAMARA 11/29/2023 14:09:05 Final Observation Date Value Abnormality Reference (Units ) Status WBC, Total 11/29/2023 14:09:05 6.83 4.00-10.80 (K/uL) Final RBC 11/29/2023 14:09:05 4.06 4.50-5.25 (M/uL) Final Hemoglobin 11/29/2023 14:09:05 12.9 Below low normal 14.0-16.8 (g/dL) Final HCT 11/29/2023 14:09:05 38.5 Below low normal 40.0-48.4 (%) Final MCV 11/29/2023 14:09:05 94.8 82.0-99.5 (fL) Final MCH 11/29/2023 14:09:05 31.8 27.0-34.0 (pg) Final MCHC 11/29/2023 14:09:05 33.5 32.0-36.0 (g/dL) Final RDW 11/29/2023 14:09:05 14.9 11.5-15.5 (%) Final Platelets 11/29/2023 14:09:05 53 Below low normal 140-400 (K/uL) Final MPV 11/29/2023 14:09:05 13.9 6.6-11.1 (fL) Final Nucleated erythrocytes/100 leukocytes [Ratio] in Blood by Automated count 11/29/2023 14:09:05 0 <=0 (/100 WBCs) Final Performing Location [facility] [place] [address] [place] [address]
--- OUTSIDE RECORDS SUMMARY | 2024-05-15 19:07 | External Medical Summary ---
Author Name Unknown Address Unknown Organization K01:LABORATORY [facility] [place] - [address] [facility] [place] [address] Laboratory Report Ordering Provider Test Date Status АННА KAMARA 11/29/2023 14:09:05 Final Observation Date Value Abnormality Reference (Units ) Status BUN 11/29/2023 14:09:05 23 Above high normal 6-20 (mg/dL) Final Creatinine 11/29/2023 14:09:05 0.9 0.6-1.2 (mg/dL) Final Glomerular filtration rate/1.73 sq M.predicted [Volume Rate/Area] in Serum, Plasma or Blood by Creatinine-based formula (CKD-EPI) 11/29/2023 14:09:05 78 >=60 (mL/min) Final eGFR is calculated based on the CKD-EPI 2020 equation Sodium 11/29/2023 14:09:05 139 135-146 (m mol/L) Final Potassium 11/29/2023 14:09:05 4.6 3.5-5.1 (m mol/L) Final Cl 11/29/2023 14:09:05 104 98-107 (mm ol/L) Final CO2 11/29/2023 14:09:05 27 22-32 (mmo l/L) Final Anion gap 11/29/2023 14:09:05 8 7-15 (mmol /L) Final Glucose 11/29/2023 14:09:05 94 70-120 (mg /dL) Final Albumin 11/29/2023 14:09:05 3.8 3.8-5.0 (g /dL) Final AST (Aspartate aminotransferase) 11/29/2023 14:09:05 12 10-50 (U/L) Fin al Alk Phos 11/29/2023 14:09:05 64 35-130 (U/ L) Final Bilirubin, Total 11/29/2023 14:09:05 1.6 Above high no rmal <=1.2 (mg/dL) Final Calcium 11/29/2023 14:09:05 8.8 8.4-10.2 ( mg/dL) Final Protein 11/29/2023 14:09:05 5.4 Below low normal 6.0 -8.3 (g/dL) Final ALT (Alanine aminotransferase) 11/29/2023 14:09:05 14 10-50 (U/L) Michael foley Performing Location LABORATORY [facility] [place] - [address] [facility] [address]
[2024-05-15] MEDS: PRAVASTATIN SOD 20 MG TAB PO SCH (20:42)
[2024-05-15] MEDS: oxyCODONE HCL IR 5 MG TAB (IMMEDIATE RELEASE) PO PRN (20:45)
[2024-05-16] MEDS: ACETAMINOPHEN 325 MG TAB PO PRN (02:22)
[2024-05-16 06:48] LABS: Hematocrit (blood only) 36.6 % (42.0-52.0); Hemoglobin 12.5 g/dl (14.0-18.0); Mean Corpuscular Hemoglobin 31.5 pg (25.0-34.0); Mean Corpuscular Hgb Conc 34.2 g/dL (32.0-36.0); Mean Corpuscular Volume 92.2 fL (80.0-100.0); Mean Platelet Volume 13.7 fL (9.4-12.4); Platelet Count 39 K/uL (130-400); RDW Coefficient of Variation 15.1 % (11.5-14.5); RDW Standard Deviation 51.6 fL (36.4-46.3); Red Blood Count 3.97 M/uL (4.70-6.10); White Blood Count 4.03 K/ul (4.8-10.8)
[2024-05-16 06:54] LABS: BUN Creatinine Ratio 33.7 (10-20); Creatinine Clr Calc Pharmacy 48.3 ml/min
[2024-05-16 07:44] LABS: Eosinophils # (auto) 0.01 K/uL (0.00-0.50); Eosinophils % (auto) 0.2 %; Immature Granulocytes # (auto) 0.01 K/uL (0.01-0.20); Immature Granulocytes % (auto) 0.2 %; Lymphocytes % (auto) 49.6 %; Monocytes # (auto) 1.33 K/uL (0.11-0.59); Neutrophils # (auto) 0.68 K/uL (1.40-6.50)
[2024-05-16 07:58] VITALS: RESP 18; O2SAT 99
--- NOTE | 2024-05-16 08:36 | Electrocardiogram Report ---
Test Reason : Blood Pressure : */* mmHG Vent. 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
[2024-05-16] MEDS: amLODIPine BESYLATE 5 MG TAB PO SCH (08:40)
[2024-05-16] MEDS: ASPIRIN 81 MG ECTAB PO SCH (08:40)
--- NOTE | 2024-05-16 10:49 | Cardiology Progress Note ---
Date of Service May 16, 2024 Assessment & Plan (1) Syncope: (2) New onset atrial fibrillation: (3) ASCVD (arteriosclerotic cardiovascular disease): (4) Dyslipidemia: (5) Dyslipidemia, goal LDL below 70: (6) Bladder cancer: (7) Thrombocytopenia: Plan Syncopal episode. Suspect vasovagal etiology. New onset atrial fibrillation with a controlled ventricular response. Duration unknown. Patient seemingly asymptomatic. Recommend rate control with beta- bess therapy. 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 [id number] Score 5 points. Patient admitted following syncopal episode with resultant head trauma, chronically with ambulatory dysfunction (recently started using a cane), marked thrombocytopenia, and recurrent bladder cancer. Risks of anticoagulation appear greater than the benefit; patient and family in agreement. With an inability to take anticoagulation and/or dual antiplatelet therapy would not recommend referral for Watchman implantation consideration at this point. ASCVD. 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 Continue medical management. Stable for discharge from a cardiology standpoint. Consider outpatient Zio Patch. Admission and Anticipated Discharge Date Admission Date: May 15, 2024 Subjective Patient seen in cardiology follow up. Denies chest pain or shortness of breath. Denies palpitations. No additional syncope. Telemetry reveals atrial fibrillation in the 70s to 80s with occasional PVCs. Physical Exam Physical Exam: General: Alert and oriented x 3. No acute distress. HEENT: Dressing covering right temporal area. Eyes: PER. Conjunctiva pink, sclera clear. Neck: Bilateral carotid bruits. No JVD. Heart: Irregularly irregular 84 bpm. Systolic murmur. No rub. Lungs: Decreased. Diminished. No wheeze. No rales. Abdomen: +BS. Soft. Nontender. No masses or organomegaly. Extremities: Trivial edema. No clubbing. No cyanosis. Limited neurological examination is without focal deficits. Results & Data Vital Signs (Past 12 Hours) Vital Signs Temp Pulse Pulse Resp BP Pulse Ox O2 Del Method 05/16/24 08:36 36.3 C L 05/16/24 07:57 75 18 155/89 H 99 Room Air 05/16/24 07:00 68 05/16/24 04:08 36.5 C 86 17 137/85 97 Room Air 05/15/24 23:47 36.6 C 74 16 129/74 96 Room Air 05/15/24 23:24 75 Laboratory Results Cardiac Enzymes 05/15/24 Range/Units 15:33 Troponin I High Sens 11.0 (0-20) pg/ml CBC 05/15/24 05/16/24 Range/Units 09:55 06:11 WBC 4.03 L (4.8-10.8) K/ul RBC 3.97 L (4.70-6.10) M/uL Hgb 12.5 L (14.0-18.0) g/dl Hct 36.6 L (42.0-52.0) % Plt Count 44 L 39 L (130-400) K/uL Neut # (Auto) 1.17 L 0.68 L* (1.40-6.50) K/uL Lymph # (Auto) 1.79 2.00 (1.20-3.40) K/uL [place] # (Auto) 1.48 H 1.33 H (0.11-0.59) K/uL Eos # (Auto) 0.00 0.01 (0.00-0.50) K/uL Baso # (Auto) 0.00 0.00 (0.00-0.20) K/uL Comprehensive Metabolic Panel 05/16/24 Range/Units 06:11 Sodium 137 (136-145) mmol/L Potassium 4.0 (3.5-5.1) mmol/L Chloride 106 (98-107) mmol/L Carbon Dioxide 28 (21-32) mmol/L BUN 29 H (6-23) mg/dl Creatinine 0.86 (0.6-1.4) mg/dl Glucose 91 (70-99(Fasting)) mg/dl Calcium 8.0 L (8.6-10.3) mg/dl Intake and Output 05/15/24 05/16/24 05/16/24 22:59 06:59 14:59 Intake Total 120 / 220 Balance 120 / 220 Intake: Oral 120 / 120 Other: # Unmeasured Voids 1 3 Weight 59.2 kg 58.7 kg Weight Measurement Method [facility] Findings EKG 05/16/24: AF at 76 bpm, diffuse non specific T wave flattening. One noted PVC (1) Syncope Syncope type: unspecified Qualified Code(s): R55 - Syncope and collapse (6) Bladder cancer Bladder location: unspecified site Qualified Code(s): C67.9 - Malignant neoplasm of bladder, unspecified
--- NOTE | 2024-05-16 11:28 | Hospitalist Progress Note ---
Date of Service May 16, 2024 Assessment & Plan (1) Syncope: (2) New onset atrial fibrillation: (3) Fall: (4) HTN (hypertension): (5) Bladder cancer: (6) Dyslipidemia: (7) CAD (coronary artery disease): (8) History of WI (myocardial infarction): Plan This is an 88 y/o male with history of CAD s/p CABG, prior WI, endovascular AAA repair, AAA endoleak repair, HTN, dyslipidemia, prior adenoCA of lung s/p XRT, recurrent bladder CA being treated in [place], chronic thrombocytopenia, CKD3, polyneuropathy, and other history as outlined below who presented to the ED today after a syncopal event at home. Work-up in the ED revealed atrial fibrillation - pt denies prior history of this and this diagnosis was not seen in review of his outpatient [facility] records. #New-onset atrial fibrillation #Syncope - vasovagal vs. due to arrhythmia #Fall Change atenolol to metoprolol tartrate 25 mg po Q6 hours Appreciate cardiology input and recommendation Fall precautions, PT/OT evaluations The risk of anticoagulation appear greater than benefit and he will be not started on any anticoagulation which was discussed with the family members by the junior project coordinator His rate remains controlled and remains asymptomatic He has had physical therapy evaluation and recommended home Discussed with the junior project coordinator and he will be discharged home this afternoon #Thrombocytopenia - chronic since 2004 but dropping count more recently Repeat CBC in the AM- platelet count is low at 39 as of 05/16/2024 Continue to follow with hem/onc as outpatient #Recurrent bladder cancer Currently undergoing treatment with urology at [facility] Has had gene therapy for years bladder cancer and will up to more treatment. #Dyslipidemia Continue statin #CKD3 Creatinine appears to be at baseline Repeat BMP in the AM Pt seen and reviewed with collaborating physician, Dr. Garsia. Plan of care discussed and as outlined above. Code status: Full code DVT prophylaxis: SCDs Admission and Anticipated Discharge Date Admission Date: May 15, 2024 Subjective 05/16/2024 The patient was seen and examined in telemetry unit He has been feeling much better and denies any significant symptoms Has had physical therapy without any dizziness and/or shortness of breath Review of Systems Review of Systems: all systems reviewed and are unremarkable except as noted below Physical Exam Physical Exam: Lying in bed without any acute distress Constitutional: average body habitus; not ill appearing Eyes: PERRL, conjunctivae normal, anicteric sclerae ENMT: external ear and nose normal, oropharynx normal Neck: trachea midline, no thyromegaly Respiratory: no respiratory distress Auscultation: lungs clear to auscultation bilaterally Cardiovascular: Rate/Rhythm: + irregularly irregular; not tachycardic Heart Sounds: normal S1, normal S2 and + murmur (2/6 ESM over precordium) Extremities: no edema Gastrointestinal (Abdomen): Inspection/Auscultation: normal bowel sounds; abdomen not distended Percussion/Palpation: abdomen soft; abdomen nontender Musculoskeletal: no acute arthritis involving any of the joint Neurologic: normal touch/pain/proprioception and moves all extremities; no f ocal motor deficits Lymphatic: no cervical or axillary lymphadenopathy Results & Data Results & Data Vital Signs (Past 12 Hours) Vital Signs Temp Pulse Pulse Resp BP Pulse Ox O2 Del Method 05/16/24 08:36 36.3 C L 05/16/24 07:57 75 18 155/89 H 99 Room Air 05/16/24 07:00 68 05/16/24 04:08 36.5 C 86 17 137/85 97 Room Air 05/15/24 23:47 36.6 C 74 16 129/74 96 Room Air 05/15/24 23:24 75 Laboratory Results Short CBC 05/16/24 Range/Units 06:11 WBC 4.03 L (4.8-10.8) K/ul Hgb 12.5 L (14.0-18.0) g/dl Hct 36.6 L (42.0-52.0) % Plt Count 39 L (130-400) K/uL BMP 05/16/24 06:11 Sodium 137 Potassium 4.0 Chloride 106 Carbon Dioxide 28 BUN 29 H Creatinine 0.86 Glucose 91 Calcium 8.0 L Urine 05/15/24 Range/Units 11:56 Urine Color Yellow Urine Appearance Clear (Clear) Urine pH 6.0 (4.5-7.5) Ur Specific [place] 1.025 (1.000-1.030) Urine Protein 1+ H (Negative) Urine Glucose (UA) Negative (Negative) Medications Administered Current Inpatient Medications Acetaminophen (Acetaminophen 325 Mg Tab) 650 mg PO Q4H PRN PRN Reason: Pain or Fever Stop: 06/14/24 17:29 Last Admin: 05/16/24 02:22 Dose: 650 mg Amlodipine Besylate (Amlodipine Besylate 5 Mg Tab) 2.5 mg PO DAILY [facility] Stop: 06/15/24 08:59 Last Admin: 05/16/24 08:40 Dose: 2.5 mg Aspirin (Aspirin 81 Mg Ectab) 81 mg PO QAM [facility] Stop: 06/15/24 08:59 Last Admin: 05/16/24 08:40 Dose: 81 mg Metoprolol Tartrate (Metoprolol Tartrate 25 Mg Tab) 25 mg PO Q6H [facility] Stop: 06/14/24 12:44 Last Admin: 05/16/24 08:40 Dose: 25 mg Miscellaneous (Silodosin 4 Mg-Order Awaiting Action) 1 each N/A QS [facility] Stop: 06/15/24 00:00 Last Admin: 05/16/24 10:50 Dose: Not Given Oxycodone HCl (Oxycodone Hcl Ir 5 Mg Tab (Immediate Release)) 5 mg PO Q6H PRN PRN Reason: Mod-Sev Pain (Scale 4-10) Stop: 05/29/24 17:29 Last Admin: 05/15/24 20:45 Dose: 5 mg Polyethylene Glycol (Polyethylene (Miralax) 17 Gm Pack) 17 gm PO DAILY PRN PRN Reason: Constipation Stop: 06/14/24 17:29 Pravastatin Sodium (Pravastatin Sod 20 Mg Tab) 20 mg PO HS [facility] Stop: 06/14/24 20:59 Last Admin: 05/15/24 20:42 Dose: 20 mg (1) Syncope Syncope type: unspecified Qualified Code(s): R55 - Syncope and collapse (3) Fall Encounter type: initial encounter Qualified Code(s): W19.XXXA - Unspecified fall, initial encounter (4) HTN (hypertension) Hypertension type: essential hypertension Qualified Code(s): I10 - Essential (primary) hypertension (5) Bladder cancer Bladder location: unspecified site Qualified Code(s): C67.9 - Malignant neoplasm of bladder, unspecified (7) CAD (coronary artery disease) Coronary Disease-Associated Artery/Lesion type: [place] artery [place] vs. transplanted heart: [place] heart Associated angina: without angina Qualified Code(s): I25.10 - Atherosclerotic heart disease of [place] coronary artery without angina pectoris
[2024-05-16 14:44] VITALS: BP 130/73; PULSE 76; TEMP 97.4
--- NOTE | 2024-05-16 17:39 | Discharge Summary ---
Date of Service May 16, 2024 Admission HPI Per Admitting Provider This is an 88 y/o male with history of CAD s/p CABG, prior HI, endovascular AAA repair, AAA endoleak repair, HTN, dyslipidemia, prior adenoCA of lung s/p XRT, recurrent bladder CA being treated in [place], chronic thrombocytopenia, CKD3, polyneuropathy, and other history as outlined below who presented to the ED today after a syncopal event at home. Pt reports that he went to the bathroom this morning and after urinating, he felt like he needed to have a BM and then fell abruptly, hitting his head on the toilet. He is unsure if he lost consciousness but he does remember his coming into the bathroom almost immediately after he fell so states that if he did pass out, it couldn't have been for more than few seconds. He denies preceding symptoms to the event including no chest pain, nausea, palpitations, dizziness, or sensation of warmth. He denies prior syncopal events. Work-up in the ED revealed new-onset atrial fibrillation. Neither patient or his family recall him being diagnosed with this previously. He does follow with cardiology for CAD s/p CABG. He has a history of recurrent bladder cancer [place] [facility] and completed six treatments with intravesical BCG, last in November 2019. He notes recently starting another treatment for bladder cancer, and he has noted some nausea related to this. 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 Lazar. Chronic thrombocytopenia since 2004, recently worsened with counts of 60-100K. 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 ECHO 03/29/19 moderately increased LV wall thickness with normal wall motion; discrete apical infarct w/ apical septum and inferior wall akinetic; regional LV wall motion o/w normal. LVEF 50-54%, grade I LV diastolic dysfunction; mildly calcified aortic valve; mild secondary MR, mild TR Admission Exam Per Admitting Provider GENERAL: Alert and oriented x3. NAD, on RA. appears old/frail. HEENT: No pallor, no icterus. Pupils equal, round and reactive to light. Oral mucosa moist. rt forehead abrasion, w/ clean dressing. NECK: No JVD, no neck masses. HEART: S1 and S2 heard. irregular rate and rhythm. No murmur, no gallop. RESPIRATORY SYSTEM: Normal AP diameter. No accessory muscle use. No wheezing, no crackles. ABDOMEN: Soft, bowel sounds present, nontender, no distention. CENTRAL NERVOUS SYSTEM: No facial droop. Speech is clear. Obeys simple commands. Moves extremities. EXTREMITIES: No edema, no erythema seen. Principal Diagnosis Syncopal episode, likely vasovagal, new onset atrial fibrillation not for any anticoagulation Discharge Exam Lying in bed without any acute distress Constitutional average body habitus; not ill appearing Eyes PERRL, conjunctivae normal, anicteric sclerae ENMT external ear and nose normal, oropharynx normal Neck trachea midline, no thyromegaly Respiratory no respiratory distress Auscultation: lungs clear to auscultation bilaterally Cardiovascular Rate/Rhythm: + irregularly irregular; not tachycardic Heart Sounds: normal S1, normal S2 and + murmur (2/6 ESM over precordium) Extremities: no edema Gastrointestinal (Abdomen) Inspection/Auscultation: normal bowel sounds; abdomen not distended Percussion/Palpation: abdomen soft; abdomen nontender Neurologic normal touch/pain/proprioception and moves all extremities; no focal motor deficits Lymphatic no cervical or axillary lymphadenopathy Discharge Data Allergies Allergy/AdvReac Type Severity Reaction Status Date / Time atorvastatin Allergy Unknown "TIGHTENS Verified 01/15/20 23:34 UP MY LIVER" simvastatin Allergy Unknown "TIGHTEN Verified 01/15/20 23:34 UP MY LIVER" tamsulosin Allergy Unknown UNKNOWN Verified 01/15/20 23:34 ciprofloxacin [From Cipro] AdvReac Severe abdominal/ Unverified 01/15/20 23:34 stomach pain lisinopril AdvReac Mild RASH Unverified 01/15/20 23:34 Consultations 05/15/24 11:33 ED Decision to Admit Stat 05/15/24 12:22 Consult Cardiology Routine Ordered Studies 05/15/24 09:57 CT cervical spine wo con Stat CT head/brain wo con Stat Hospital Course (1) Syncope: (2) New onset atrial fibrillation: (3) Fall: (4) HTN (hypertension): (5) Bladder cancer: (6) Dyslipidemia: (7) CAD (coronary artery disease): (8) History of HI (myocardial infarction): Plan This is an 88 y/o male with history of CAD s/p CABG, prior HI, endovascular AAA repair, AAA endoleak repair, HTN, dyslipidemia, prior adenoCA of lung s/p XRT, recurrent bladder CA being treated in [place], chronic thrombocytopenia, CKD3, polyneuropathy, and other history as outlined below who presented to the ED today after a syncopal event at home. Work-up in the ED revealed atrial fibrillation - pt denies prior history of this and this diagnosis was not seen in review of his outpatient [facility] records. #New-onset atrial fibrillation #Syncope - vasovagal vs. due to arrhythmia #Fall Change atenolol to metoprolol tartrate 25 mg po Q6 hours Appreciate cardiology input and recommendation Fall precautions, PT/OT evaluations The risk of anticoagulation appear greater than benefit and he will be not started on any anticoagulation which was discussed with the family members by the board certified arts therapist His rate remains controlled and remains asymptomatic He has had physical therapy evaluation and recommended home Discussed with the board certified arts therapist and he will be discharged home this afternoon #Thrombocytopenia - chronic since 2004 but dropping count more recently Repeat CBC in the AM- platelet count is low at 39 as of 05/16/2024 Continue to follow with hem/onc as outpatient #Recurrent bladder cancer Currently undergoing treatment with [place] [facility] Has had gene therapy for years bladder cancer and will up to more treatment. #Dyslipidemia Continue statin #CKD3 Creatinine appears to be at baseline Repeat BMP in the AM Pt seen and reviewed with collaborating physician, Dr. Garsia. Plan of care discussed and as outlined above. Code status: Full code DVT prophylaxis: SCDs Total Time Total Time Spent Total Time Spent (In Minutes): 35 minutes Discharge Plan Discharge Items Patient Disposition: Home - Self-Care Reason For Visit: NEW-ONSET AFIB Discharge Diagnosis: syncopal episode, likely vasovagal, new onset atrial fibrillation not for any anticoagulation Condition on Discharge: Fair Activity: Resume your previous activity Non-emergency contact: Primary Care Provider Call non-emergency contact if: you have any medication questions and your symptoms worsen Follow-up/Referrals: Javon Scales DO [Primary Care Provider] - (65 Forward/Dr. Scales discharge follow-up appointment on 05/24/24 at 3:40 pm. Outpatient Zio Patch placement to be set up by Dr. Scales. ) Diet: Heart Healthy Addtl Attending Provider Instructions: Please take precautions to avoid falls Do not take any ibuprofen or any other NSAIDs Take your medications as advised Please keep your appointments with your PCP and your urologist and oncologist Pending Studies at Discharge: No Stand-Alone Forms: My [facility], Smoking Cessation Medications and DC Order Prescriptions: New metoprolol succinate [Toprol XL] 50 mg tablet extended release 24 hr 50 mg PO BID Qty: 60 0RF Continued polyethylene glycol 3350 17 gram Powder In Packet 17 g PO DAILY PRN (Reason: Constipation) nitroglycerin [Nitrostat] 0.3 mg Tablet, Sublingual 0.3 mg sublingual DIRECTED amlodipine 2.5 mg tablet 2.5 mg PO DAILY aspirin [Rober Low Dose Aspirin] 81 mg Tablet,Delayed Release (Dr/Ec) 81 mg PO QAM pravastatin 20 mg tablet 20 mg PO HS pyridoxine (vitamin B6) 100 mg Tablet 200 mg PO 3XWK cholecalciferol (vitamin D3) [Vitamin D3] 1,000 unit Capsule 1,000 unit PO DAILY Flonase Sensimist 27.5 mcg/actuation [place],Suspension 1 spray INTRANASAL DIRECTED PRN (Reason: congestion) coenzyme Q10 50 mg Tablet 50 mg PO DAILY amoxicillin 500 mg tablet 2,000 mg PO ONCE PRN (Reason: 1 hr prior to dental procedure) oxycodone 5 mg tablet 5 mg PO Q6H PRN (Reason: Severe Pain (Scale Score 7-10)) silodosin 4 mg capsule 4 mg PO DAILY Roscoe Oil 1 cap PO DAILY Discontinued atenolol 25 mg tablet 25 mg PO BID Discharge Orders: Discharge Order (Routine); Ordered 05/16/24 Ordered By: Andrea Sebastian Admission Data Admit Date/Time: 05/15/24 12:39 Attending Provider: Andrea Sebastian Admit Provider: Jason Garsia Primary Care Provider: Javon Scales Other Providers: Jason Garsia; Pérez Snyder Other Interventions: Discharge Summary Assessment (RN) Last Done: 05/16/24 15:17
--- OUTSIDE RECORDS SUMMARY | 2024-05-16 17:59 | External Medical Summary | Summary of Care ---
Author Name Unknown Organization [facility] Address [address] [place] [address] Phone [phone] Care Team Providers Care Robotic Toy Inventor Name Role Phone Javon Scales DO Primary Care Provider [phone] Reason for Visit * Reason Onset Date Comments Appointment 05/15/2024 fall Encounter Details Date Type Department Care Team (Late st Contact Info) Description 05/15/2024 Telephone Family Practice [address] [facility], [place] [address] [place] [phone] Javon Scales DO [address] [place] [address] Appointment (fall) Allergies Active Allergy Reactions Criticality Noted Date [...] as of this encounter (statuses as of 05/15/2024) Medications CO Q 10 10 MG PO [...] S) 8.6-50 MG per tabletIndications :Drug induced constipation,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 Active Saline Nasal [place] 0.65 % Nasal Solution ([place])Indication s:Epistaxis Administer into nostril 2 Sprays in the morning AND 2 Sprays before bedtime. 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 Take 1 tablet [...] of bladder treatment 2 Tablet 4 Active documented as of this encounter (statuses as of 05/15/2024) Active Problems Problem Noted Date Diagnosed Date [...] OF UNSPECIFIED TYPE OF VESSEL, [place] OR GRAFT History of bladder cancer documented as of this encounter (statuses as of 05/15/2024) Resolved Problems Problem Noted Date Diagnosed Date [...] 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[place]10 [facility] [place]1 month s/p reintervention for his R [...] as of this encounter (statuses as of 05/15/2024) Immunizations Name Administration Dates Next Due COVID-19 mRNA, LNP-s, No Pre serve, 2-Dose Series ([employer]) 04/24/2021,09/06/2020,08/09/2020 COVID-19, MRNA-LNP, PF, 30 M CG/0.3 mL, 12 YRS AND ABOVE, IM ([employer]Comirnat) 03/20/2024 Covid-19, Mrna, Lnp-s, Pf, B ivalent, 30 Mcg, IM, 12 yrs and above ([employer]) 05/19/2022 H1N1 2009 Influenza, IM 05/28/2009 Influenza, Whole Virus 03/07/2007,03/18/2006 Pneumococcal Conjugate Vacc, 13 Valent (Prevnar) 10/16/2014 Pneumococcal Conjugate Vacci ne, 20-valent ([id number]) 04/21/2024 Pneumococcal Polysaccharide PPV23 (Pneumovax) 05/13/2006 RSV [...] Telephone Encounter - Kelli Steele RN - 05/15/2024 8:51 AM EST Agree with ER evaluation * Telephone Encounter - Kelli Mota LPN - 05/15/2024 8:13 AM EST States father passed out at 0730, did void. Advised er due to fall. * Telephone Encounter - Christa Paredes OSA - 05/15/2024 8:06 AM EST Fell sometime in night Said he passed out Hit head on toliet/sink Was bleeding and has that stopped Call Lore documented in this encounter Plan of Treatment Upcoming Encounters Date Type Department Care Team (Late st Contact Info) Description 05/15/2024 1:20 PM EST Office Visit Family Practice [address] [place] [address] [address] [place] [address] Javon Scales, [address] [place] [address] 07/25/2024 12:30 PM EST Imaging Radiology [facility] 1st [facility] [place] [address] [place] [address] 07/28/2024 1:00 PM EST Procedure Only Urology, [place] [address] [place] [address] Jose Lisa MD [address] [place] [address] 07/31/2024 2:20 PM EST Office Visit Family Practice [address] [place] [address] [address] [place] [phone] Javon Scales DO [address] [place] [address] 08/08/2024 3:00 PM EST Office Visit Hematology/Oncology [facility] [address] [facility] [place], [place] [phone] Martir Lazar MD [address] [facility] [place] [address] 09/05/2024 4:00 PM EDT Office Visit Cardiology, [facility] [address] [facility] [place] [address] Sridhar Fay MD 132 [facility] [place] [address] 09/26/2024 11:00 AM EDT Nurse Only Family Practice [address] [place] [address] 293 [facility], [place] [phone] Kelli Steele RN [address] [place] [phone] 10/23/2024 2:00 PM EDT Office Visit Gastroenterology, [facility] [address] [facility] [place] [address] Makayla Moody CRNP [address] [facility] [place] [address] Health Maintenance Due Date Last Done Comments CKD PHOS USE SMARTSET 57291 07/27/202407/09, 02/25/2022, 01/29/2021 Adult Wellness Visit 09/20/2024 09/21/2023, 01/30/2022, 01/29/2021 Depression Screening 09/20/2024 09/21/2023 Albumin/Creatinine Ratio 03/02/2025 024, 04/26/2023, 07/13/2022, Additional history exists CKD HGB USE SMARTSET 86191 03/11/202503/11, 03/11/2024, 03/10/2024, Additional history exists DTap/Tdap [...] this encounter Medical Devices Implanted Type Area Certified Flex Endoscope Reprocessor Device Identifier Shelf Expiration Date Model / Serial / Lot Bifurcated Endograft Implanted:Qty: 1 on 03/29/2017 by Lisa Emerson MD [place] [facility] [place]A: Aorta ENDOLOGIX 01/13/2018 [id number] 6-40 / [id number] / Proximal Endograft Implanted:Qty: 1 on 03/29/2017 by Lisa Emerson MD [place] [facility] [place]/A: Aorta ENDOLOGIX 01/16/2020 A25-25/C75- [id number] / [id number] / documented as of this encounter Advance Directives * Full Code (Latest Code Status on File) Date Activated Date Inactivated Comments 03/29/2017 2:46 PM 03/31/2017 3:33 PM This order reflects the patients wishes and were consensually agreed upon. Care Teams Robotic Toy Inventor Relationship Specialty Start Date End Date Javon Scales DO [address] [place] [address] PCP - General Internal Medicine 11/19/23 documented as of this encounter
--- OUTSIDE RECORDS SUMMARY | 2024-05-16 17:59 | External Medical Summary | Summary of Care ---
Author Name Unknown Organization [facility] Address [address] [place] [address] Phone [phone] Care Team Providers Care Sand Conditioner Machine Name Role Phone Javon Scales DO Primary Care Provider [phone] Reason for Visit * Reason Onset Date Comments Appointment 05/15/2024 fall Encounter Details Date Type Department Care Team (Late st Contact Info) Description 05/15/2024 Telephone Family Practice 65 [facility] [place] [address] [place] [phone] Javon Scales DO [address] [place] [address] Appointment (fall) Allergies Active Allergy [...] S) 8.6-50 MG per tabletIndications :Drug induced constipation,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 Active Saline Nasal [place] 0.65 % Nasal Solution ([place])Indication s:Epistaxis Administer into nostril 2 Sprays in the morning AND 2 Sprays before bedtime. 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 Take 1 tablet [...] CORONARY ATHEROSCLEROSIS OF UNSPECIFIED TYPE OF VESSEL, [place] OR GRAFT History of bladder cancer documented [...] mRNA, LNP-s, No Pre serve, 2-Dose Series ([employer]) 04/24/2021,09/06/2020,08/09/2020 COVID-19, MRNA-LNP, PF, 30 M CG/0.3 mL, 12 YRS AND ABOVE, IM ([employer]Comirnat) 03/20/2024 Covid-19, Mrna, Lnp-s, Pf, B ivalent, 30 Mcg, IM, 12 yrs and above (Pfizer) 05/19/2022 H1N1 2009 Influenza, IM 05/28/2009 Influenza, Whole Virus 03/07/2007,2005,03/16/2005,04/07 Pneumococcal Conjugate Vacc, 13 Valent (Prevnar) 10/16/2014 Pneumococcal Conjugate Vacci ne, 20-valent ([id number]) 04/21/2024 Pneumococcal Polysaccharide PPV23 (Pneumovax) 05/13/2006,06/07/1997 RSV [...] Telephone Encounter - Javon Scales DO - 05/15/2024 11:48 AM EST Head trauma. LOC. Platelet count 69,000. Agree with ER evaluation. * Telephone Encounter - Kelli Steele RN [...] Description 07/25/2024 12:30 PM EST Imaging Radiology [facility] 1st [facility], [place] [address] [facility] [place] [id number] 07/28/2024 1:00 PM EST Procedure Only [facility] [place] [address] [facility] [address] Jose Lisa MD [address] [facility] [address] 07/31/2024 2:20 PM EST Office Visit Family Practice [address] [place] [address] 293 [place] [phone] Javon Scales DO [address] [place] [address] 08/08/2024 3:00 PM EST Office Visit Hematology/Oncology [facility] [address] [facility] [place] [phone] Martir Lazar MD [address] [facility] [place], [place] [address] 09/05/2024 4:00 PM EDT Office Visit Cardiology, [facility] [address] [facility] [place] [address] Sridhar Fay MD [address] [facility] [address] 09/26/2024 11:00 AM EDT Nurse Only Family Practice [address] [place] [address] [address] [place] [phone] Kelli Steele RN [address] [place] [phone] 10/23/2024 2:00 PM EDT Office Visit Gastroenterology, [facility] [address] [place] [address] Makayla Moody CRNP [address] [facility] [place] [address] Health Maintenance Due Date Last Done Comments CKD PHOS USE SMARTSET 89830 07/27/202407/09, 02/25/2022, 01/29/2021 Adult Wellness Visit 09/20/2024 09/21/2023, 01/30/2022, 01/29/2021 Depression Screening 09/20/2024 09/21/2023 Albumin/Creatinine Ratio 03/02/20252 024, 04/26/2023, 07/13/2022, Additional history exists CKD HGB USE SMARTSET 03545 03/11/202503/11, 03/11/2024, 03/10/2024, Additional history exists DTap/Tdap [...] this encounter Medical Devices Implanted Type Area Informatics Application Analyst Device Identifier Shelf Expiration Date Model / Serial / Lot Bifurcated Endograft Implanted:Qty: 1 on 03/29/2017 by Lisa Emerson MD [place] [facility]A: Aorta ENDOLOGIX 01/13/2018 [id number]/[id number] 6-40 / [id number] / Proximal Endograft Implanted:Qty: 1 on 03/29/2017 by Lisa Emerson MD [place] [facility] [place]/A: Aorta ENDOLOGIX 01/16/2020 A25-25/C75- [id number] / [id number] / documented as of this encounter Advance Directives * Full Code (Latest Code Status on File) Date Activated Date Inactivated Comments 03/29/2017 2:46 PM 03/31/2017 3:33 PM This order reflects the patients wishes and were consensually agreed upon. Care Teams Sand Conditioner Machine Relationship Specialty Start Date End Date Javon Scales DO [address] [place] [address] PCP - General Internal Medicine 11/19/23 documented as of this encounter
== END 2024-05-16 15:40 | disposition home or self-care (01) | DRG 309 ==
LOC: ED 09:35 → SUATTDRO 12:39 → 2E 12:39